=== PATIENT | female | born 1960 | race Caucasian/White ===

== ENCOUNTER 2023-05-25 13:32 | Outpatient (OUT) | payer MEDICARE, OTHER, SELFPAY ==
--- NOTE | 2023-05-25 14:05 | XR_ITS ---
The [address] [address] Patient Name: DELMIS MTZ MRN: [id number] date: 1960 Sex: F Assigned Patient Location: [facility] Current Patient Location: [facility] Accession/Order Number: [id number] Exam Date: 05/25/2023 14:00 Report Date: 05/25/2023 14:13 At the request of: RADHA IVERSON Procedure: XR ankle RT min 3V EXAM: XR ankle RT min 3V HISTORY: Ankle Pain M25.579 COMPARISON: None. TECHNIQUE: 3 views of the right ankle were obtained. FINDINGS: There is a small osteophyte or bony fragments seen at the tip of the lateral malleolus which appears chronic in nature. There is no evidence of an acute fracture or dislocation. The mortise is intact. No osteochondral injury is identified. There is mild narrowing of the subtalar joints and the joints in the mid foot. An osteophyte arises from the plantar aspect of the calcaneus. Diffuse osteopenia is noted. Diffuse soft tissue swelling about the ankle is noted. XR/XR ankle RT min 3V IMPRESSION: Some degenerative changes are present. There is no evidence of an acute fracture or dislocation. An osteophyte arises from the plantar aspect of the calcaneus. Direct comparison with a previous study may be helpful in determining the chronicity of these findings. Electronically authenticated by: NIESHA BULLOCK Date: 05/25/2023 14:13
== END 2023-05-25 13:33 | disposition home or self-care (01) ==
LOC: RAD 13:36
PROVIDERS: PCP Family Medicine; Visit Provider Family Medicine
DX: M25.571 Pain in right ankle and joints of right foot (principal); M19.071 Primary osteoarthritis, right ankle and foot; M25.774 Osteophyte, right foot
CPT/HCPCS: 73610

== ENCOUNTER 2023-08-11 12:23 | Outpatient (REF) | payer MEDICARE, OTHER, SELFPAY ==
[2023-08-11 12:52] LABS: Bilirubin Urine NEGATIVE (NEGATIVE); Blood Urine NEGATIVE (NEGATIVE); Clarity Urine CLEAR (CLEAR); Color Urine LT. YELLOW (YELLOW); Glucose Urine UA NEGATIVE (NEGATIVE); Ketones Urine NEGATIVE (NEGATIVE); Leukocyte Esterase Urine NEGATIVE (NEGATIVE); Nitrite Urine NEGATIVE (NEGATIVE); Protein Urine NEGATIVE (NEG/TRACE); Urobilinogen Urine 0.2 EU/dL (0.2-1.0)
[2023-08-11 13:16] LABS: Bacteria Urine TRACE #/HPF (NONE SEEN); Cast Seen? NONE SEEN #/LPF (NONE SEEN); Crystals Seen? None Seen #/HPF (None Seen); Mucus Urine NONE SEEN (NONE SEEN); RBC Urine NONE SEEN #/HPF (0-2); Squamous Epithelial Cell Urine RARE #/LPF (NONE/RARE); WBC Urine NONE SEEN #/HPF (NONE SEEN)
== END 2023-08-11 12:24 | disposition home or self-care (01) ==
LOC: LAB 12:23
PROVIDERS: PCP Family Medicine; Visit Provider Family Medicine
DX: N39.0 Urinary tract infection, site not specified (principal)
CPT/HCPCS: 81001; 87086

== ENCOUNTER 2024-04-11 13:59 | Outpatient (OUT) | payer MEDICARE, OTHER, SELFPAY ==
[2024-04-11 14:51] LABS: Basophils Absolute Auto 0.1 10^3/uL (0.0-0.1); Basophils Percent Auto 1.2 % (0.2-2.0); Eosinophils Absolute Auto 0.1 10^3/uL (0.0-0.7); Eosinophils Percent Auto 1.2 % (0.9-7.0); Hematocrit 40.3 % (36.0-48.0); Hemoglobin 12.9 g/dL (12.0-16.0); Immature Granulocytes Abs Auto 0.01 10^3/uL (0.00-0.03); Immature Granulocytes Pct Auto 0.2 % (0.0-0.5); Lymphocytes Absolute Auto 1.3 10^3/uL (1.2-3.8); Lymphocytes Percent Auto 23.8 % (20.5-60.0); Mean Corpuscular Hemoglobin 28.7 pg (26.7-34.0); Mean Corpuscular Volume 89.8 fL (81.0-99.0); Mean Platelet Volume 11.1 fL (9.5-13.5); Monocytes Absolute Auto 0.5 10^3/uL (0.3-0.8); Neutrophils Absolute Auto 3.7 10^3/uL (1.4-6.5); Neutrophils Percent Auto 65.6 % (43.0-75.0); Platelet Count 217 10^3/uL (150-450); Red Blood Count 4.49 10^6/uL (4.20-5.40); Red Cell Distribution Width 12.9 % (11.0-15.0); White Blood Count 5.6 10^3/uL (4.0-11.0)
[2024-04-11 15:19] LABS: Estimated Average Glucose 126 mg/dL
[2024-04-11 15:32] LABS: Alanine Aminotransferase 17 U/L (14-59); Albumin Globulin Ratio 0.9; Albumin Level 3.6 g/dL (3.4-5.0); Alkaline Phosphatase 95 U/L (46-116); Anion Gap 10.9; Aspartate Amino Transferase 12 U/L (15-37); BUN Creatinine Ratio 23.5; Bilirubin Total 0.5 mg/dL (0.2-1.0); Calcium 8.7 mg/dL (8.5-10.1); Chloride 101 mmol/L (98-107); Chol HDL Ratio 2.8; Cholesterol 147 mg/dL (<=200); Estimated GFR (African America >60 (>=60); Estimated GFR (Non-African Ame >60 (>=60); Free T3 2.46 pg/mL (2.18-3.98); Glucose 96 mg/dL (74-106); HDL Cholesterol 53 mg/dL (40-60); LDL Cholesterol Calculated 78.6 mg/dL; Potassium 3.9 mmol/L (3.5-5.1); Sodium 138 mmol/L (136-145); Total Protein 7.6 g/dL (6.4-8.2); Triglycerides 77 mg/dL (<=150); VLDL CHOLESTEROL 15.4 mg/dL
[2024-04-12 11:11] LABS: Insulin 16.3 uIU/mL (2.6-24.9)
== END 2024-04-11 14:00 | disposition home or self-care (01) ==
PROVIDERS: PCP Family Medicine; Visit Provider Family Medicine
DX: K21.9 Gastro-esophageal reflux disease without esophagitis (principal); I10 Essential (primary) hypertension; J43.9 Emphysema, unspecified; R06.09 Other forms of dyspnea; E78.5 Hyperlipidemia, unspecified; R73.09 Other abnormal glucose; D64.9 Anemia, unspecified; E55.9 Vitamin D deficiency, unspecified
CPT/HCPCS: 36415; 80053; 80061; 82306; 83036; 83525; 83540; 84436; 84443; 84481; 85025

== ENCOUNTER 2025-04-01 08:55 | Outpatient (OUT) | payer MEDICARE, OTHER, SELFPAY ==
--- OUTSIDE RECORDS SUMMARY | 2025-04-01 09:00 | XMS_ITS | CCD ---
Author Organization [facility] Care Team Providers Care Poly Area Supervisor Name Role Phone DR RADHA LENTZ Admitting Unavailable KISHOR, DR GARCIA Attending Unavailable KISHOR, DR GARCIA Referring Unavailable KISHOR, DR GARCIA Primary Care Unavailable KISHOR, DR GARCIA Consulting Unavailable KISHOR, DR GARCIA Admitting Unavailable KISHOR, DR GARCIA Attending Unavailable KISHOR, DR GARCIA Primary Care Unavailable KISHOR, DR GARCIA Consulting Unavailable Radha Lentz MD Primary Care Provider [phone] Berta Lovelace MD Unavailable Berta Rivero OD Unavailable Radha Lentz MD Primary Care Provider [phone] KURTIS VALDEZ Attending Unavailable LEFTY ECHOLS Attending Unavailable KURTIS VALDEZ Attending Unavailable Allergies Allergy Classification Reported Allergen(s) Allergy Type Date of Onset Reaction(s) Facility (1 source) Sulfamethoxazole / Trimethoprim Drug Allergy 12-04-19 17 [facility] Repository (3 sources) Penicillins Propensity to adverse reactions 02-28-20 25 [facility] Healthcare Medications Current Medications Medication Drug Class(es) Dates Sig (Normalized) Sig (Original) albuterol 0.83 mg/ml inhalation solution (5 sources) beta2-Adrenergic Agonist albuterol (2.5 MG/3ML) 0.083% nebulizer solution Take by nebulization every 6 (six) hours if needed for wheezing. Active amLODIPine 5 mg oral tablet (5 sources) Dihydropyridine Calcium Channel [place] Start: 05-24-2023 take 1 tablet by mouth once daily amLODIPine (Norvasc) 5 MG tablet TAKE 1 TABLET BY MOUTH EVERY DAY FOR 30 DAYS 05/24/2023 Active carvedilol 25 mg oral tablet (10 sources) alpha-Adrenergic Lorena, beta-Adrenergic [place] Start: 04-11-2024 take 1 tablet by mouth twice daily at mealtime carvedilol (Coreg) 25 MG tablet TAKE 1 TABLET BY MOUTH TWICE A DAY WITH FOOD FOR 90 DAYS 04/11/2024 Active Start: 05-31-2023 End: 03-18-2025 take 1 tablet by mouth twice daily at mealtime carvedilol (Coreg) 12.5 MG tablet TAKE 1 TABLET BY MOUTH TWICE A DAY WITH FOOD FOR 90 DAYS 05/31/2023 03/18/2025 Discontinued cholecalciferol 0.125 mg oral capsule (5 sources) Vitamin D Start: 04-13-2023 take 1 capsule by mouth once daily [facility] D3 125 MCG (5000 UT) capsule TAKE 1 CAPSULE BY MOUTH ONCE A DAY DIRECTED 04/13/2023 Active esomeprazole 20 mg delayed release oral capsule (5 sources) Proton Pump Inhibitor take 1 capsule by mouth before mealtime esomeprazole (NexIUM) [address] capsule Take 20 mg by mouth in the morning. Take before meals. Do not open capsule.. Active furosemide 40 mg oral tablet (5 sources) Loop Diuretic Start: 04-13-2023 take 1 tablet by mouth once daily furosemide (Lasix) 40 MG tablet TAKE 1 TABLET BY MOUTH EVERY DAY FOR 90 DAYS 04/13/2023 Active hyoscyamine sulfate 0.125 mg sublingual tablet (5 sources) Start: 02-20-2024 hyoscyamine (Levsin) 0.125 MG SL tablet DISSOLVE 1 TABLET UNDER TONGUE BEFORE MEALS AND AT BEDTIME NEEDED FOR ABDOMINAL PAIN 02/20/2024 Active ibuprofen 600 mg oral tablet (5 sources) Nonsteroidal Anti-inflammatory Drug ibuprofen 600 MG tablet every 8 (eight) hours. Active ketorolac tromethamine 5 mg/ml ophthalmic solution (1 source) Nonsteroidal Anti-inflammatory Drug, Cyclooxygenase Inhibitor Start: 07-08-2024 End: 08-07-2024 take 1 drop(s) into the eye(s) in the morning ketorolac (Acular) 0.5 % ophthalmic solution Indications: Age-related nuclear cataract of both eyes ADMINISTER 1 DROP INTO AFFECTED EYE(S) IN THE MORNING AND 1 DROP BEFORE BEDTIME. 5 mL 1 07/08/2024 08/07/2024 Active losartan potassium 100 mg oral tablet (5 sources) Angiotensin 2 Receptor Lorena losartan (Cozaar) 100 MG tablet 1 (one) time each day at the same time. Active potassium chloride 10 meq extended release oral tablet (5 sources) Start: 05-31-2023 take 1 tablet by mouth in the morning potassium chloride CR (Klor-Con) 10 MEQ ER tablet Take 10 mEq by mouth in the morning and 10 mEq before bedtime. 05/31/2023 Active simvastatin 20 mg oral tablet (5 sources) HMG-CoA Reductase Inhibitor Start: 04-13-2023 take 1 tablet by mouth in the morning simvastatin (Zocor) 20 MG tablet Take 20 mg by mouth in the morning. 04/13/2023 Active Completed/Discontinued Medications Medication Drug Class(es) Dates Sig (Normalized) Sig (Original) ondansetron 4 mg disintegrating oral tablet (5 sources) Serotonin-3 Receptor Antagonist Start: 02-20-2024 End: 03-18-2025 ondansetron ODT (Zofran-ODT) 4 MG disintegrating tablet DISSOLVE 1 TABLET ON THE TONGUE EVERY 6 HOURS NEEDED FOR NAUSEA FOR 3 DAYS 02/20/2024 03/18/2025 Discontinued Problems Problem Classification Problem Date Documented Date Episodic/Chronic Cataract (6 sources) Bilateral age-related nuclear cataracts; Translations: [Age-related nuclear cataract, bilateral] Onset: 05-21-2024 07-08-2024 Chronic Menopausal disorders (3 sources) Postmenopausal bleeding; Translations: [Postmenopausal bleeding] 02-27-2025 Chronic Nutritional deficiencies (1 source) Vitamin D deficiency, unspecified; Translations: [VITAMIN D DEFICIENCY UNSPECIFIED] Onset: 06-19-2022 Chronic Other screening for suspected conditions (not mental disorders or infectious disease) (1 source) Endometrium thickened; Translations: [Abnormal findings on diagnostic imaging of other specified body structures] 03-18-2025 Chronic Retinal detachments; defects; vascular occlusion; and retinopathy (5 sources) Epiretinal membrane of left eye; Translations: [Puckering of macula, left eye] Onset: 05-21-2024 05-21-2024 Chronic Results Test Name Value Interpretation Reference Range Facility US PELVIC COMPLETE W/ TVon 0 03-18-2025 US PELVIC COMPLETE W/ TV EXAM: US PELVIC COMPLETE W/ TV HISTORY: Postmenopausal bleeding x8 days occurring 2 weeks ago. G0. COMPARISON: None available. TECHNIQUE: Two-dimensional transabdominal grayscale and color Doppler ultrasound imaging of the pelvis was performed. Transvaginal was performed. FINDINGS: UTERUS 6.5 x 2.4 x 3.6 cm The uterus is anteverted in position and demonstrates a normal, homogeneous echotexture. Multiple nabothian cysts are visualized within the cervix. ENDOMETRIUM 0.6 cm The postmenopausal endometrium is thickened and demonstrates a heterogeneous echotexture. There is no definite internal mass lesion. RIGHT OVARY Not visualized LEFT OVARY Not visualized No fluid is present within the cul-de-sac. IMPRESSION: 1. Mildly thickened and heterogeneous postmenopausal endometrium without sonographic evidence of definite internal mass lesion. Hysteroscopy with tissue sampling is recommended for further evaluation. 2. Nonvisualization of the bilateral ovaries. Interpreted by: Electronically signed by VALE CHAKRABORTY II, MD, PHD at 19-Mar-2025 08:43:41 AM [facility] Normal Not Available Comment on above: Order Comment: US PE LVIS-TRANSVAG IF INDICATED No LMP recorded. INSULINon 06-16-2022 Insulin 24.6 uIU/mL Normal 2.6-24.9 [facility] Comment on above: Performed By: #### I NSULIN #### [facility] [address] [address] [address] Ghassan Mena VIT D 25-OH LABCORPon 2021 Vitamin D, 25-Hydroxy 57.2 ng/mL Normal 30.0-100.0 [facility] Comment on above: Result Comment: Jany min D deficiency has been defined by the Oxford of Medicine and an Endocrine Society practice guideline as a level of serum 25-OH vitamin D less than 20 ng/mL (1,2). The Endocrine Society went on to further define vitamin D insufficiency as a level between 21 and 29 ng/mL (2). 1. IOM (Oxford of Medicine). 2010. Dietary reference intakes for calcium and D. [place]: The National Academies Press. 2. Nadia MF, Fermin [place], Mark ABAD, et al. Evaluation, treatment, and prevention of vitamin D deficiency: an Endocrine Society clinical practice guideline. JCEM. 2010; 96(7):1911-30. Performed By: #### I DOTTIE #### [facility] [address] [address] Katherin Dina CBC AUTO DIFFon 06-15-2022 BASO # 0.0 103/ul Normal 0.0-0.1 [facility] Comment on above: Performed By: #### I DOTTIE #### [facility] [address] [place], [place] [id number] Katheriniliana Arroyo Basophils/100 WBC (Bld) 0.7 % Normal 0.2-2.0 [facility] Comment on above: Performed By: #### I DOTTIE #### [facility] [address] [place] [address] Katherin Dina EO # 0.1 103/ul Normal 0.0-0.7 [facility] Comment on above: Performed By: #### I DOTTIE #### [facility] [address] [place] [address] Katherin Dina Eosinophils/100 WBC (Bld) 1.1 % Normal 0.9-7.0 [facility] Comment on above: Performed By: #### I DOTTIE #### [facility] [address] [place] [address] Katherin Arroyo Erythrocyte distribution width (RBC) [Ratio] 12.8 % Normal 11.0-15.0 [facility] Comment on above: Performed By: #### I DOTTIE #### [facility] [address] [place] [address] Katherin Dina Hematocrit (Bld) [Volume fraction] 40.9 % Normal 36.0-48.0 [facility] Comment on above: Performed By: #### I DOTTIE #### [facility] [address] [place] [address] Katherin Dina Hemoglobin (Bld) [Mass/Vol] 13.3 g/dL Normal 12.0-16.0 [facility] Comment on above: Performed By: #### I DOTTIE #### [facility] [address] [place] [address] Katherin Dina IG # 0.01 10e3/ul Normal 0.00-0.03 [facility] Comment on above: Performed By: #### I DOTTIE #### [facility] [address] [place] [address] Katherin Dina IG % 0.2 % Normal 0.0-0.5 [facility] Comment on above: Performed By: #### I DOTTIE #### [facility] [address] [place] [address] Katherin Arroyo LYMPH # 1.0 103/ul Critically low 1.2-3.8 [facility] Comment on above: Performed By: #### I DOTTIE #### [facility] [address] [place] [address] Katherin Arroyo Lymphocytes/100 WBC (Bld) 18.7 % Critically low 20.5-60.0 [facility] Comment on above: Performed By: #### I DOTTIE #### [facility] [address] [place] [address] Katherin Arroyo MANUAL DIFF REQ NO Normal [facility] Comment on above: Performed By: #### I DOTTIE #### [facility] [address] [place] [address] Katheriniliana Arroyo MCH (RBC) [Entitic mass] 28.8 pg Normal 26.7-34.0 [facility] Comment on above: Performed By: #### I DOTTIE #### [facility] [address] [place] [address] Katherin Arroyo MCHC (RBC) [Mass/Vol] 32.5 g/dL Normal 29.9-35.2 [facility] Comment on above: Performed By: #### I DOTTIE #### [facility] [address] [place] [address] Katherin Arroyo MCV (RBC) [Entitic vol] 88.5 fL Normal 81.0-99.0 [facility] Comment on above: Performed By: #### I DOTTIE #### [facility] [address] [place] [address] Katherin Dina MONO # 0.4 103/ul Normal 0.3-0.8 [facility] Comment on above: Performed By: #### I DOTTIE #### [facility] [address] [place] [address] Katherin Arroyo Monocytes/100 WBC (Bld) 7.8 % Normal 1.7-12.0 [facility] Comment on above: Performed By: #### I DOTTIE #### [facility] [address] [place] [address] Katherin Arroyo NEUT # 3.9 103/ul Normal 1.4-6.5 [facility] Comment on above: Performed By: #### I DOTTIE #### [facility] [address] [place], [place] [id number] Katherin Arroyo Neutrophils/100 WBC (Bld) 71.5 % Normal 43.0-75.0 [facility] Comment on above: Performed By: #### I DOTTIE #### [facility] [address] [place] [address] Katherin Arroyo Platelet mean volume (Bld) [Entitic vol] 11.0 fL Normal 9.5-13.5 [facility] Comment on above: Performed By: #### I DOTTIE #### [facility] [address] [place] [address] Katherin Batistaen PLT 201 103/ul Normal 150-450 [facility] Comment on above: Performed By: #### I DOTTIE #### [facility] [address] [place] [address] Katheriniliana Batistaen RBC 4.62 106/ul Normal 4.20-5.40 [facility] Comment on above: Performed By: #### I DOTTIE #### [facility] [address] [place] [address] Katherin Batistaen WBC 5.5 103/ul Normal 4.0-11.0 [facility] Comment on above: Performed By: #### I DOTTIE #### [facility] [address] [place] [address] Katherin Arroyo FREE THYROXINE INDEX T7on FTI 2.95 Normal 1.30-4.50 [facility] Comment on above: Performed By: #### L IPID, T7, TSH, CMP #### [facility] [address] [place] [address] Dr. Ghassan Mena T3U 31.0 % Normal 30.0-39.0 [facility] Comment on above: Performed By: #### L IPID, T7, TSH, CMP #### [facility] [address] [address] [address] Ghassan Mena T4 [Mass/Vol] 9.50 ug/dL Normal 4.80-13.90 [facility] Comment on above: Performed By: #### L IPID, T7, TSH, CMP #### [facility] [address] [address] [address] Ghassan Mena GLYCOHEMOGLOBIN A1Con 2021 ADA RECOMMENDATION SEE BELOW Normal [facility] Comment on above: Result Comment: ADA RECOMMENDED LIMIT 4.0 - 6.0 ADA THERAPEUTIC TARGET < 7.0 ACTION SUGGESTED > 7.0 Performed By: #### A 1C #### [facility] [address] [address] [address] Ghassan Mena Glucose [Mass/Vol] 131 mg/dL Normal [facility] Comment on above: Performed By: #### A 1C #### [facility] [address] [address] [address] Ghassan Mena HbA1c (Bld) [Mass fraction] 6.2 % Normal 4.5-6.2 [facility] Comment on above: Performed By: #### A 1C #### [facility] [address] [address] [address] Ghassan Mena IRONon 06-15-2022 Iron [Mass/Vol] 54.0 ug/dL Normal 50.0-170.0 [facility] Comment on above: Performed By: #### I DOTTIE #### [facility] [address] [address] [address] Ghassan Mena LIPID PROFILEon 06-15-2022 CHOL-HDL RATIO NORM SEE BELOW Normal [facility] Comment on above: Result Comment: 3.3 - 4.4 LOW RISK 4.4 - 7.1 AVERAGE RISK 7.1 - 11.0 MODERATE RISK >11.0 HIGH RISK Performed By: #### L IPID, T7, TSH, CMP #### [facility] [address] [address] [address] Ghassan Mena Cholesterol [Mass/Vol] 143 mg/dL Normal <=200 [facility] Comment on above: Performed By: #### L IPID, T7, TSH, CMP #### [facility] [address] [address] [address] Ghassan Mena Cholesterol in HDL [Mass/Vol] 50 mg/dL Normal 40-60 [facility] Comment on above: Performed By: #### L IPID, T7, TSH, CMP #### [facility] [address] [address] [address] Ghassan Mena Cholesterol in LDL [Mass/Vol] 76.8 mg/dL Normal [facility] Comment on above: Performed By: #### L IPID, T7, TSH, CMP #### [facility] [address] [address] [address] Ghassan Mena Cholesterol.total/Ch olesterol in HDL [Mass ratio] 2.9 {ratio} Normal [facility] Comment on above: Performed By: #### L IPID, T7, TSH, CMP #### [facility] [address] [address] [address] Ghassan Mena HDL NORMAL > or = 60 mg/dl - LO W CARDIOVASCULAR RISK <40 mg/dl - HIGH CARDIOVASCULAR RISK Normal [facility] Comment on above: Performed By: #### L IPID, T7, TSH, CMP #### [facility] [address] [address] [address] Ghassan Mena LDL CALC NORMAL SEE BELOW Normal [facility] Comment on above: Result Comment: <100 mg/dl OPTIMAL 100 - 129 mg/dl NEAR OR ABOVE OPTIMAL 130 - 159 mg/dl BORDERLINE HIGH 160 - 189 mg/dl HIGH >190 mg/dl VERY HIGH Performed By: #### L IPID, T7, TSH, CMP #### [facility] [address] [address] [address] Ghassan Mena Triglyceride [Mass/Vol] 81 mg/dL Normal <=150 [facility] Comment on above: Performed By: #### L IPID, T7, TSH, CMP #### [facility] [address] [address] [address] Ghassan Mena VLDL CALC 16.2 mg/dL Normal [facility] Comment on above: Performed By: #### L IPID, T7, TSH, CMP #### [facility] [address] [address] [address] Ghassan Mena PROF 14(COMP METB)on 022 Albumin [Mass/Vol] 3.5 g/dL Normal 3.4-5.0 [facility] Comment on above: Performed By: #### L IPID, T7, TSH, CMP #### [facility] [address] [place] [address] Dr. Ghassan Mena Albumin/Globulin [Mass ratio] 0.9 {ratio} Normal [facility] Comment on above: Performed By: #### L IPID, T7, TSH, CMP #### [facility] [address] [place] [address] Dr. Ghassan Mena ALP [Catalytic activity/Vol] 83 U/L Normal 46-116 [facility] Comment on above: Performed By: #### L IPID, T7, TSH, CMP #### [facility] [address] [place] [address] Dr. Ghassan Mena ALT [Catalytic activity/Vol] 14 U/L Normal 14-59 [facility] Comment on above: Performed By: #### L IPID, T7, TSH, CMP #### [facility] [address] [place] [address] Dr. Ghassan Mena Anion gap [Moles/Vol] 11.3 mmol/L Normal [facility] Comment on above: Performed By: #### L IPID, T7, TSH, CMP #### [facility] [address] [place] [address] Dr. Ghassan Mena AST [Catalytic activity/Vol] 11 U/L Critically low 15-37 [facility] Comment on above: Performed By: #### L IPID, T7, TSH, CMP #### [facility] [address] [place] [address] Dr. Ghassan Mena Bilirubin [Mass/Vol] 0.5 mg/dL Normal 0.2-1.0 [facility] Comment on above: Performed By: #### L IPID, T7, TSH, CMP #### [facility] [address] [address] [address] Ghassan Mena Calcium [Mass/Vol] 8.9 mg/dL Normal 8.5-10.1 [facility] Comment on above: Performed By: #### L IPID, T7, TSH, CMP #### [facility] [address] [place] [address] Dr. Ghassan Mena Chloride [Moles/Vol] 105 mmol/L Normal 98-107 [facility] Comment on above: Performed By: #### L IPID, T7, TSH, CMP #### [facility] [address] [place] [address] Dr. Ghassan Mena CO2 [Moles/Vol] 27.8 mmol/L Normal 21.0-32.0 [facility] Comment on above: Performed By: #### L IPID, T7, TSH, CMP #### [facility] [address] [place] [address] Dr. Ghassan Mena Creatinine [Mass/Vol] 0.70 mg/dL Normal 0.55-1.02 [facility] Comment on above: Performed By: #### L IPID, T7, TSH, CMP #### [facility] [address] [place] [address] Dr. Ghassan Mena EGFR-AF J[place]ICAN >60 Normal >=60 [facility] Comment on above: Performed By: #### L IPID, T7, TSH, CMP #### [facility] [address] [place] [address] Dr. Ghassan Mena EGFR-NON AF J[place] >60 Normal >=60 [facility] Comment on above: Performed By: #### L IPID, T7, TSH, CMP #### [facility] [address] [place] [address] Dr. Ghassan Mena Globulin (S) [Mass/Vol] 3.8 g/dL Normal [facility] Comment on above: Performed By: #### L IPID, T7, TSH, CMP #### [facility] [address] [place] [address] Dr. Ghassan Mena Glucose [Mass/Vol] 109 mg/dL Critically high 74-106 T [facility] Comment on above: Performed By: #### L IPID, T7, TSH, CMP #### [facility] [address] [place] [address] Dr. Ghassan Mena Potassium [Moles/Vol] 4.1 mmol/L Normal 3.5-5.1 [facility] Comment on above: Performed By: #### L IPID, T7, TSH, CMP #### [facility] [address] [place] [address] Dr. Ghassan Mena Protein [Mass/Vol] 7.3 g/dL Normal 6.4-8.2 [facility] Comment on above: Performed By: #### L IPID, T7, TSH, CMP #### [facility] [address] [place] [address] Dr. Ghassan Mena Sodium [Moles/Vol] 140 mmol/L Normal 136-145 [facility] Comment on above: Performed By: #### L IPID, T7, TSH, CMP #### [facility] [address] [place] [address] Dr. Ghassan Mena Urea nitrogen [Mass/Vol] 16.0 mg/dL Normal 7.0-18.0 [facility] Comment on above: Performed By: #### L IPID, T7, TSH, CMP #### [facility] [address] [place] [address] Dr. Ghassan Mena Urea nitrogen/Creatinine [Mass ratio] 22.9 mg/mg Normal [facility] Comment on above: Performed By: #### L IPID, T7, TSH, CMP #### [facility] [address] [place] [address] Dr. Ghassan Mena TSHon 06-15-2022 TSH 2.630 uIU/mL Normal 0.358-3.740 [facility] Comment on above: Performed By: #### L IPID, T7, TSH, CMP #### [facility] [address] [place] [address] Dr. Ghassan Mena INSULINon 07-08-2021 Insulin 6.9 uIU/mL Normal 2.6-24.9 [facility] Comment on above: Performed By: #### I NSULIN #### [facility] [address] [place], [place] [id number] Katherin Dina CBC AUTO DIFFon 07-07-2021 BASO # 0.1 103/ul Normal 0.0-0.1 [facility] Comment on above: Performed By: #### I DOTTIE #### [facility] [address] [place] [address] Katherin Dina Basophils/100 WBC (Bld) 1.0 % Normal 0.2-2.0 [facility] Comment on above: Performed By: #### I DOTTIE #### [facility] [address] [place] [address] Katherin Dina EO # 0.1 103/ul Normal 0.0-0.7 [facility] Comment on above: Performed By: #### I DOTTIE #### [facility] [address] [place] [address] Katherin Dina Eosinophils/100 WBC (Bld) 1.2 % Normal 0.9-7.0 [facility] Comment on above: Performed By: #### I DOTTIE #### [facility] [address] [place] [address] Katheriniliana Arroyo Erythrocyte distribution width (RBC) [Ratio] 13.1 % Normal 11.0-15.0 [facility] Comment on above: Performed By: #### I DOTTIE #### [facility] [address] [place] [address] Katherin Dina Hematocrit (Bld) [Volume fraction] 40.6 % Normal 36.0-48.0 [facility] Comment on above: Performed By: #### I DOTTIE #### [facility] [address] [place], [place] [id number] Katherin Dina Hemoglobin (Bld) [Mass/Vol] 13.1 g/dL Normal 12.0-16.0 [facility] Comment on above: Performed By: #### I DOTTIE #### [facility] [address] [place] [address] Katherin Dina IG # 0.01 10e3/ul Normal 0.00-0.03 [facility] Comment on above: Performed By: #### I DOTTEI #### [facility] [address] [place] [address] Katherin Dina IG % 0.2 % Normal 0.0-0.5 [facility] Comment on above: Performed By: #### I DOTTIE #### [facility] [address] [place] [address] Katherin Dina LYMPH # 1.2 103/ul Normal 1.2-3.8 [facility] Comment on above: Performed By: #### I DOTTIE #### [facility] [address] [place] [address] Katheriniliana Arroyo Lymphocytes/100 WBC (Bld) 22.1 % Normal 20.5-60.0 [facility] Comment on above: Performed By: #### I DOTTIE #### [facility] [address] [place] [address] Katherin Dina MANUAL DIFF REQ NO Normal [facility] Comment on above: Performed By: #### I DOTTIE #### [facility] [address] [place] [address] Katherin Dina MCH (RBC) [Entitic mass] 29.1 pg Normal 26.7-34.0 [facility] Comment on above: Performed By: #### I DOTTIE #### [facility] [address] [place] [address] Katheriniliana Arroyo MCHC (RBC) [Mass/Vol] 32.3 g/dL Normal 29.9-35.2 [facility] Comment on above: Performed By: #### I DOTTIE #### [facility] [address] [place] [address] Katherin Dina MCV (RBC) [Entitic vol] 90.2 fL Normal 81.0-99.0 [facility] Comment on above: Performed By: #### I DOTTIE #### [facility] [address] [place] [address] Katherin Dina MONO # 0.5 103/ul Normal 0.3-0.8 [facility] Comment on above: Performed By: #### I DOTTIE #### [facility] [address] [place] [address] Katherin Dina Monocytes/100 WBC (Bld) 9.0 % Normal 1.7-12.0 [facility] Comment on above: Performed By: #### I DOTTIE #### [facility] [address] [place], [place] [id number] Katheriniliana Batistaen NEUT # 3.5 103/ul Normal 1.4-6.5 [facility] Comment on above: Performed By: #### I DOTTIE #### [facility] [address] [place], [place] [id number] Katherin Dina Neutrophils/100 WBC (Bld) 66.5 % Normal 43.0-75.0 [facility] Comment on above: Performed By: #### I DOTTIE #### [facility] [address] [place], [place] [id number] Katheriniliana Arroyo Platelet mean volume (Bld) [Entitic vol] 11.0 fL Normal 9.5-13.5 [facility] Comment on above: Performed By: #### I DOTTIE #### [facility] [address] [place], [place] [id number] Katherin Dnia PLT 195 103/ul Normal 150-450 [facility] Comment on above: Performed By: #### I DOTTIE #### [facility] [address] [place], [place] [id number] Katherin Dina RBC 4.50 106/ul Normal 4.20-5.40 [facility] Comment on above: Performed By: #### I DOTTIE #### [facility] [address] [place], [place] [id number] Katherin Dina WBC 5.2 103/ul Normal 4.0-11.0 [facility] Comment on above: Performed By: #### I DOTTIE #### [facility] [address] [place], [place] [id number] Katherin Dina FREE THYROXINE INDEX T7on FTI 3.77 Normal [facility] Comment on above: Performed By: #### I DOTTIE #### [facility] [address] [place], [place] [id number] Katherin Dina T3U 34.0 % Normal 23.5-40.5 [facility] Comment on above: Performed By: #### I DOTTIE #### [facility] [address] [place] [address] Katherin Dina T4 [Mass/Vol] 11.10 ug/dL Critically high 5.53-11.00 [facility] Comment on above: Performed By: #### I DOTTIE #### [facility] [address] [place] [address] Katherin Arroyo GLYCOHEMOGLOBIN A1Con 2020 ADA RECOMMENDATION ADA THERAPEUTIC TARGET 6.0 - 7.0 ACTION SUGGESTED > 7.0 Normal [facility] Comment on above: Performed By: #### A 1C #### [facility] [address] [place] [address] Katherin Arroyo Glucose [Mass/Vol] 123 mg/dL Normal [facility] Comment on above: Performed By: #### A 1C #### [facility] [address] [place] [address] Katherin Arroyo HbA1c (Bld) [Mass fraction] 5.9 % Normal <=6.0 [facility] Comment on above: Performed By: #### A 1C #### [facility] [address] [place] [address] Katherin Arroyo IRONon 07-07-2021 Iron [Mass/Vol] 64.0 ug/dL Normal 37.0-170.0 [facility] Comment on above: Performed By: #### I DOTTIE #### [facility] [address] [place] [address] Katherin Arroyo LIPID PROFILEon 07-07-2021 CHOL-HDL RATIO NORM SEE BELOW Normal [facility] Comment on above: Result Comment: 3.3 - 4.4 LOW RISK 4.4 - 7.1 AVERAGE RISK 7.1 - 11.0 MODERATE RISK >11.0 HIGH RISK Performed By: #### I DOTTIE #### [facility] [address] [place] [address] Katherin Arroyo Cholesterol [Mass/Vol] 137 mg/dL Normal <=200 [facility] Comment on above: Performed By: #### I DOTTIE #### [facility] [address] [place], [place] [address] Katherin Dina Cholesterol in HDL [Mass/Vol] 52 mg/dL Normal [facility] Comment on above: Performed By: #### I DOTTIE #### [facility] [address] [place], [place] [address] Katherin Dina Cholesterol in LDL [Mass/Vol] 72.2 mg/dL Normal [facility] Comment on above: Performed By: #### I DOTTIE #### [facility] [address] [place], [place] [address] Katherin Dina Cholesterol.total/Ch olesterol in HDL [Mass ratio] 2.6 {ratio} Normal [facility] Comment on above: Performed By: #### I DOTTIE #### [facility] [address] [place] [id number] Katherin Dina HDL NORMAL > or = 60 mg/dl - LO W CARDIOVASCULAR RISK <40 mg/dl - HIGH CARDIOVASCULAR RISK Normal [facility] Comment on above: Performed By: #### I DOTTIE #### [facility] [address] [place], [place] [address] Katherin Dina LDL CALC NORMAL SEE BELOW Normal [facility] Comment on above: Result Comment: <100 mg/dl OPTIMAL 100 - 129 mg/dl NEAR OR ABOVE OPTIMAL 130 - 159 mg/dl BORDERLINE HIGH 160 - 189 mg/dl HIGH >190 mg/dl VERY HIGH Performed By: #### I DOTTIE #### [facility] [address] [place] [id number] Katherin Dina Triglyceride [Mass/Vol] 64 mg/dL Normal <=150 [facility] Comment on above: Performed By: #### I DOTTIE #### [facility] [address] [place] [id number] Katherin Dina VLDL CALC 12.8 mg/dL Normal [facility] Comment on above: Performed By: #### I DOTTIE #### [facility] [address] [place], [place] [address] Katherin Dina PROF 14(COMP METB)on 021 Albumin [Mass/Vol] 3.7 g/dL Normal 3.5-5.0 [facility] Comment on above: Performed By: #### I DOTTIE #### [facility] [address] [place] [id number] Katherin Dina Albumin/Globulin [Mass ratio] 0.9 {ratio} Normal [facility] Comment on above: Performed By: #### I DOTTIE #### [facility] [address] [place] [id number] Katherin Dina ALP [Catalytic activity/Vol] 85 U/L Normal 38-126 [facility] Comment on above: Performed By: #### I DOTTIE #### [facility] [address] [place] [address] Katherin Dina ALT [Catalytic activity/Vol] 19 U/L Normal 9-52 [facility] Comment on above: Performed By: #### I DOTTIE #### [facility] [address] [place] [address] Katherin Dina Anion gap [Moles/Vol] 10.6 mmol/L Normal [facility] Comment on above: Performed By: #### I DOTTIE #### [facility] [address] [place] [address] Katherin Dina AST [Catalytic activity/Vol] 24 U/L Normal 14-36 [facility] Comment on above: Performed By: #### I DOTTIE #### [facility] [address] [place] [address] Katherin Dina Bilirubin [Mass/Vol] 0.5 mg/dL Normal 0.2-1.3 [facility] Comment on above: Performed By: #### I DOTTIE #### [facility] [address] [place] [address] Katherin Dina Calcium [Mass/Vol] 9.2 mg/dL Normal 8.4-10.2 [facility] Comment on above: Performed By: #### I DOTTIE #### [facility] [address] [place], [place] [id number] Katherin Dina Chloride [Moles/Vol] 102 mmol/L Normal 98-107 [facility] Comment on above: Performed By: #### I DOTTIE #### [facility] [address] [place] [address] Katherin Dina CO2 [Moles/Vol] 31.5 mmol/L Critically high 22.0-30.0 [facility] Comment on above: Performed By: #### I DOTTIE #### [facility] [address] [place] [address] Katherin Dina Creatinine [Mass/Vol] 0.85 mg/dL Normal 0.52-1.04 [facility] Comment on above: Performed By: #### I DOTTIE #### [facility] [address] [place] [address] Katherin Dina EGFR-AF JAMAICAN >60 Normal >=60 [facility] Comment on above: Performed By: #### I DOTTIE #### [facility] [address] [place] [address] Katherin Dina EGFR-NON AF [place]ICAN >60 Normal >=60 [facility] Comment on above: Performed By: #### I DOTTIE #### [facility] [address] [place] [address] Katherin Dina Globulin (S) [Mass/Vol] 4.0 g/dL Normal [facility] Comment on above: Performed By: #### I DOTTIE #### [facility] [address] [place] [address] Katherin Dina Glucose [Mass/Vol] 99 mg/dL Normal 74-106 [facility] Comment on above: Performed By: #### I DOTTIE #### [facility] [address] [place] [address] Katherin Dina Potassium [Moles/Vol] 4.1 mmol/L Normal 3.4-5.0 [facility] Comment on above: Performed By: #### I DOTTIE #### [facility] [address] [place] [address] Katherin Dina Protein [Mass/Vol] 7.7 g/dL Normal 6.1-8.2 [facility] Comment on above: Performed By: #### I DOTTIE #### [facility] [address] [place] [address] Katherin Dina Sodium [Moles/Vol] 140 mmol/L Normal 137-145 [facility] Comment on above: Performed By: #### I DOTTIE #### [facility] [address] [place], [place] [address] Katherin Arroyo Urea nitrogen [Mass/Vol] 15.0 mg/dL Normal 7.0-17.0 [facility] Comment on above: Performed By: #### I DOTTIE #### [facility] [address] [place], [place] [address] Katherin Arroyo Urea nitrogen/Creatinine [Mass ratio] 17.6 mg/mg Normal [facility] Comment on above: Performed By: #### I DOTTIE #### [facility] [address] [place], [place] [address] Katherin Arroyo TSHon 07-07-2021 TSH 2.729 uIU/mL Normal 0.470-4.680 [facility] Comment on above: Performed By: #### I DOTTIE #### [facility] [address] [place] [id number] Katherin Arroyo TSH RANGE SEE BELOW Normal [facility] Comment on above: Result Comment: <0.3 4 UIU/ml HYPERTHYROID 0.34-5.60 UIU/ml EUTHYROID >5.60 UIU/ml HYPOTHYROID Performed By: #### I DOTTIE #### [facility] [address] [place], [place] [address] Katherin Arroyo Vital Signs Date Time Vital Sign Value Performing Clinician Rosalva oscary 03-18-2025 15:39-0400 Body mass index (BMI) [Ratio] 38.33 kg/m2 [employer] Work Phone: [facility] 03-18-2025 15:39-0400 Body weight 131.77 kg Bubbly DO Work Phone: [facility] 03-18-2025 15:39-0400 Diastolic blood pressure 90 mm[Hg] [employer] Work Phone: [facility] 03-18-2025 15:39-0400 Systolic blood pressure 150 mm[Hg] [employer] Work Phone: [facility] 02-27-2025 10:09-0400 Body mass index (BMI) [Ratio] 37.84 kg/m2 Kurtis José Miguel DO Work Phone: [facility] 02-27-2025 10:09-0400 Body weight 130.09 kg Kurtis José Miguel DO Work Phone: [facility] 02-27-2025 10:09-0400 Diastolic blood pressure 84 mm[Hg] Kurtis José Miguel DO Work Phone: [facility] 02-27-2025 10:09-0400 Systolic blood pressure 124 mm[Hg] Kurtis José Miguel DO Work Phone: [facility] Encounters Encounter Date Encounter Type Care Provider Facility Start: 03-18-2025 End: 03-18-2025 ambulatory KURTIS JOSÉ MIGUEL Not Available Start: 03-18-2025 End: 03-18-2025 Office outpatient visit 15 minutes Kurtis José Miguel DO Work Phone: [facility] Comment on above: Pre-op examination; Postmenopausal bleeding; Thickened endometrium Start: 03-18-2025 End: 03-18-2025 Preprocedural examination done Kurtis José Miguel DO Work Phone: [facility] Start: 03-18-2025 End: 03-18-2025 ambulatory KURTIS JOSÉ MIGUEL Not Available Start: 02-27-2025 End: 02-27-2025 Bamboo flowsheet Kurtis José Miguel DO Work Phone: [facility] Start: 02-27-2025 End: 02-27-2025 Bamboo flowsheet Kurtis José Miguel DO Work Phone: [facility] Start: 02-27-2025 End: 02-27-2025 Office outpatient visit 15 minutes Kurtis José Miguel DO Work Phone: [facility] Comment on above: Postmenopausal bleed ing Start: 02-27-2025 End: 02-27-2025 ambulatory KURTIS JOSÉ MIGUEL Not Available Start: 07-08-2024 End: 07-08-2024 Refill Lefty Echols DO Work Phone: [facility] Comment on above: Age-related nuclear cataract of both eyes Start: 05-21-2024 End: 05-21-2024 ambulatory LEFTY ECHOLS Not Available Start: 06-19-2022 Encounter for genera l adult medical examination without abnormal findings DR RADHA LENTZ [facility] Start: 06-15-2022 End: 06-16-[address] RADHA LENTZ Facility:[facility] Start: 06-15-2022 End: 06-16-2022 Encounter for general adult medical examination without abnormal findings DR RADHA LENTZ Facility:[facility] Start: 07-07-2021 End: 07-08-[address] RADHA LENTZ Facility:[facility] Plan of Treatment Date Care Activity Detail Author Start: 07-14-2025 Influenza vaccination Influenz a Vaccine (Season Ended) [facility] Start: 04-21-2025 End: 04-21-2025 Patient encounter procedure 04/21/2025 1:20 PM EDT Office Visit [facility] [address] [facility] [place] [id number] Bisi Bains PA [address] [place] [address] [facility] Start: 03-18-2025 End: 03-18-2025 Patient encounter procedure 03/18/2025 2:40 PM EDT Consult [facility] [address] [place] [phone] Kurtis Valdez DO [address] [place] [address] [facility] Start: 03-18-2025 End: 03-18-2025 Professional / ancillary services management 03/18/2025 2:00 PM EDT Ancillary Procedure [facility] [address] [place] [id number] [facility] Start: 02-27-2025 End: 08-29-2025 US Pelvis US Pelvis w/ TV Imaging Routine Postmenopausal bleeding Expected: 02/27/2025, Expires: 08/29/2025 [facility] Work Phone: Comment on above: Expected: 02/27/2025 , Expires: 08/29/2025 Start: 02-27-2025 End: 02-27-2025 Patient encounter procedure 02/27/2025 10:00 AM EDT Office Visit [facility] [address] [place] [address] Kurtis Valdez DO [address] [place] [address] Arrived [facility] Comment on above: Arrived Start: 07-22-2024 End: 07-22-2024 Patient encounter procedure 07/22/2024 7:45 AM EDT Procedure Visit [facility] Lefty Echols, DO [address] [place] [address] [facility] Start: 07-14-2024 Influenza vaccination Influenza Vacc ine (#1) [facility] Start: 2023 Pneumococcal Vaccine : 65+ Years (1 of 1 - PCV) Pneumococcal Vaccine: 65+ Years (1 of 1 - PCV) [facility] Start: 2008 Pneumococcal Vaccine : 65+ Years (1 of 1 - PCV) Pneumococcal Vaccine: 65+ Years (1 of 1 - PCV) [facility] Start: 1998 Screening for malign ant neoplasm of breast Mammogram [facility] Start: 1960 Screening for malign ant neoplasm of colon [facility] Immunizations Immunization Date Immunization Notes Care Provider Fa cility 10-13-2017 influenza virus vacc ine, unspecified formulation Lefty Echols DO Work Phone: [facility] Healthcare Payers Date Payer Category Payer Private Health Insurance [facility] [place] [id number] 2023 Unknown [id number] 2023 Medicare MEDICARE [id number] 2023 Medicare [id number] 1960 Unknown [id number] 1958 Unknown [id number] 1958 Unknown [id number] 1958 Unknown [id number] 1958 Unknown [id number] 1958 Unknown [id number] Unknown [id number] Social History Date Type Detail Facility Start: [facility]21-2024 [facility] Work Phone: History of tobacco use Current smoker [facility] History of tobacco use Cigarette Smoker [facility] Start: 05-21-2024 Tobacco use and exposure Smokeless tobacco non-user [facility] Start: 05-21-2024 Alcoholic beverage intake Lifetime non-drinker (finding) [facility] Start: 07-20-2023 End: 05-21-2024 History of Social function [facility] Start: 07-20-2023 End: 05-21-2024 Tobacco use panel [facility] Start: 1960 Sex assigned at Not on file [facility] History of Present illness Narrative 03-18-2025 Rubi Cabrera LPN - 03/18/2025 2:40 PM EDT Note Date & Type Note Facility 03-18-2025 History of Presen t illness Narrative Reason for Appointment: Patient ID: Naz Juan is a 64 y.o. female who presents for Pre-op Visit Patient presents today for Pre Op appointment. Patient is scheduled to undergo D&C Hysteroscopy, possible Myosure on 04/11/[address] Valdez at [facility]. MEDICATIONS Current Outpatient Medications Medication Instructions albuterol (2.5 MG/3ML) 0.083% nebulizer solution Nebulization, Every 6 hours PRN amLODIPine (Norvasc) 5 MG tablet TAKE 1 TABLET BY MOUTH EVERY DAY FOR 30 DAYS carvedilol (Coreg) 25 MG tablet TAKE 1 TABLET BY MOUTH TWICE A DAY WITH FOOD FOR 90 DAYS [facility] D3 125 MCG (5000 UT) capsule TAKE 1 CAPSULE BY MOUTH ONCE A DAY DIRECTED esomeprazole (NEXIUM) 20 mg, Oral, Daily before breakfast, Do not open capsule. furosemide (Lasix) 40 MG tablet TAKE 1 TABLET BY MOUTH EVERY DAY FOR 90 DAYS hyoscyamine (Levsin) 0.125 MG SL tablet DISSOLVE 1 TABLET UNDER TONGUE BEFORE MEALS AND AT BEDTIME NEEDED FOR ABDOMINAL PAIN ibuprofen 600 MG tablet Every 8 hours losartan (Cozaar) 100 MG tablet Every 24 hours potassium chloride CR (Klor-Con) 10 MEQ ER tablet 10 mEq, Oral, 2 times daily simvastatin (ZOCOR) 20 mg, Oral, Daily ALLERGIES Allergies Allergen Reactions Penicillins PROBLEMS Active Ambulatory Problems Diagnosis Date Noted Age-related nuclear cataract of both eyes 05/21/2024 Epiretinal membrane (ERM) of left eye 05/21/2024 Resolved Ambulatory Problems Diagnosis Date Noted No Resolved Ambulatory Problems Past Medical History: Diagnosis Date Arthritis HTN (hypertension) (CMS/HCC) Hypercholesteremia (CMS/HCC) HISTORY PAST MEDICAL HISTORY SOCIAL HISTORY Past Medical History: Diagnosis Date Arthritis HTN (hypertension) (CMS/HCC) Hypercholesteremia (CMS/HCC) Social History Tobacco Use Smoking status: Former Types: Cigarettes Smokeless tobacco: Never Substance Use Topics Alcohol use: Never Drug use: Never FAMILY HISTORY Family History Problem Relation Name Age of Onset Cancer Other Diabetes Sibling Heart disease Sibling SURGICAL HISTORY Past Surgical History: Procedure Laterality Date TONSILLECTOMY REVIEW OF SYSTEMS Review of Systems: Review of Systems Constitutional: Negative. HENT: Negative. Eyes: Negative. Respiratory: Negative. Cardiovascular: Negative. Gastrointestinal: Negative. Genitourinary: Positive for vaginal bleeding. Musculoskeletal: Negative. Skin: Negative. Neurological: Negative. All other systems reviewed and are negative. Hematological: Negative. Endocrine: Negative. Allergic/Immunologic: Negative. OBJECTIVE Objective: Physical Exam Constitutional: Appearance: Normal appearance. She is well-developed. Cardiovascular: Rate and Rhythm: Normal rate and regular rhythm. Pulmonary: Effort: Pulmonary effort is normal. Breath sounds: Normal breath sounds. Abdominal: General: Bowel sounds are normal. There is no distension. Palpations: Abdomen is soft. Tenderness: There is no abdominal tenderness. There is no guarding or rebound. Musculoskeletal: General: No swelling. Normal range of motion. Right lower leg: No edema. Left lower leg: No edema. Neurological: Mental Status: She is alert and oriented to person, place, and time. Skin: General: Skin is warm and dry. Psychiatric: Mood and Affect: Mood normal. Behavior: Behavior normal. Vitals and nursing note reviewed. Exam conducted with a coffee shop attendant present. Vitals: Estimated body mass index is 38.33 kg/m as calculated from the following: Height as of 07/04/23: 6' 1 . Weight as of this encounter: 290 lb 8 oz. BP: 150/90 No LMP recorded. ASSESSMENT & PLAN ICD-10-CM 1. Pre-op examination Z01.818 2. Postmenopausal bleeding N95.0 3. Thickened endometrium R93.89 Pre Op: Patient is doing well but has complaints of postmenopausal bleeding. I have discussed conservative management vs. surgical management with the patient in detail and patient desires surgical management at this time. Patient will undergo D&C Hysteroscopy, possible Myosure on 04/11/25. Surgical consents were signed, mmc was reviewed, and patient is to proceed to [facility] OR. Follow Up: Patient is to follow up between 1-2 weeks post operative to assess proper healing and recovery from procedure. Documented by Dina Dawson LPN on behalf of: Kurtis Valdez DO documented in this encounter [facility] History of Present illness Narrative 02-27-2025 Rubi Cabrera LPN - 02/27/2025 10:00 AM EDT Note Date & Type Note Facility 02-27-2025 History of Presen t illness Narrative Reason for Appointment: Patient ID: Naz Juan is a 64 y.o. female who presents for PMB Patient presents today for Consult appointment. MEDICATIONS Current Outpatient Medications Medication Instructions albuterol (2.5 MG/3ML) 0.083% nebulizer solution Nebulization, Every 6 hours PRN amLODIPine (Norvasc) 5 MG tablet TAKE 1 TABLET BY MOUTH EVERY DAY FOR 30 DAYS carvedilol (Coreg) 12.5 MG tablet TAKE 1 TABLET BY MOUTH TWICE A DAY WITH FOOD FOR 90 DAYS carvedilol (Coreg) 25 MG tablet TAKE 1 TABLET BY MOUTH TWICE A DAY WITH FOOD FOR 90 DAYS [facility] D3 125 MCG (5000 UT) capsule TAKE 1 CAPSULE BY MOUTH ONCE A DAY DIRECTED esomeprazole (NEXIUM) 20 mg, Oral, Daily before breakfast, Do not open capsule. furosemide (Lasix) 40 MG tablet TAKE 1 TABLET BY MOUTH EVERY DAY FOR 90 DAYS hyoscyamine (Levsin) 0.125 MG SL tablet DISSOLVE 1 TABLET UNDER TONGUE BEFORE MEALS AND AT BEDTIME NEEDED FOR ABDOMINAL PAIN ibuprofen 600 MG tablet Every 8 hours losartan (Cozaar) 100 MG tablet Every 24 hours ondansetron ODT (Zofran-ODT) 4 MG disintegrating tablet DISSOLVE 1 TABLET ON THE TONGUE EVERY 6 HOURS NEEDED FOR NAUSEA FOR 3 DAYS potassium chloride CR (Klor-Con) 10 MEQ ER tablet 10 mEq, Oral, 2 times daily simvastatin (ZOCOR) 20 mg, Oral, Daily ALLERGIES Allergies Allergen Reactions Penicillins PROBLEMS Active Ambulatory Problems Diagnosis Date Noted Age-related nuclear cataract of both eyes 05/21/2024 Epiretinal membrane (ERM) of left eye 05/21/2024 Resolved Ambulatory Problems Diagnosis Date Noted No Resolved Ambulatory Problems Past Medical History: Diagnosis Date Arthritis HTN (hypertension) (CMS/HCC) Hypercholesteremia (CMS/HCC) HISTORY PAST MEDICAL HISTORY SOCIAL HISTORY Past Medical History: Diagnosis Date Arthritis HTN (hypertension) (CMS/HCC) Hypercholesteremia (CMS/HCC) Social History Tobacco Use Smoking status: Former Types: Cigarettes Smokeless tobacco: Never Substance Use Topics Alcohol use: Never Drug use: Never FAMILY HISTORY Family History Problem Relation Name Age of Onset Cancer Other Diabetes Sibling Heart disease Sibling SURGICAL HISTORY Past Surgical History: Procedure Laterality Date TONSILLECTOMY REVIEW OF SYSTEMS Review of Systems: Review of Systems All other systems reviewed and are negative. OBJECTIVE Objective: Physical Exam Constitutional: Appearance: Normal appearance. She is well-developed. Cardiovascular: Rate and Rhythm: Normal rate and regular rhythm. Pulmonary: Effort: Pulmonary effort is normal. Breath sounds: Normal breath sounds. Abdominal: General: Bowel sounds are normal. There is no distension. Palpations: Abdomen is soft. Tenderness: There is no abdominal tenderness. There is no guarding or rebound. Musculoskeletal: General: No swelling. Normal range of motion. Right lower leg: No edema. Left lower leg: No edema. Neurological: Mental Status: She is alert and oriented to person, place, and time. Skin: General: Skin is warm and dry. Psychiatric: Mood and Affect: Mood normal. Behavior: Behavior normal. Vitals and nursing note reviewed. Exam conducted with a coffee shop attendant present. Vitals: Estimated body mass index is 37.84 kg/m as calculated from the following: Height as of 07/04/23: 6' 1 . Weight as of this encounter: 286 lb 12.8 oz. BP: 124/84 No LMP recorded. ASSESSMENT & PLAN ICD-10-CM 1. Postmenopausal bleeding N95.0 US Pelvis w/ TV Patient presents to office for post menopausal bleeding. Patient voiced she is having heavy bleeding today, which started last . When vaginal bleeding first started it was mild-moderate in flow, but increased today. Patient has complaints of dull pain but not true menstrual cramps. Discussed possible causes of vaginal bleeding with patient & informed her that recommendations are to have workup. Ordered ultrasound and will setup date or surgical procedure. Patient was informed of conservative verses surgical management and would like to proceed to OR for D&C Hysteroscopy. Patient to setup pre-op and US appointment prior to leaving office today. Documented by Rubi Cabrera LPN on behalf of: Kurtis Valdez DO documented in this encounter [facility] Evaluation note Note Date & Type Note Facility Evaluation note Diagnosis Age-related nuclear cataract of both eyes documented in this encounter [facility] Evaluation note Note Date & Type Note Facility Evaluation note Diagnosis Postmenopausal bleeding documented in this encounter [facility] Evaluation note Note Date & Type Note Facility Evaluation note Diagnosis Pre-op examination Postmenopausal bleeding Thickened endometrium Nonspecific (abnormal) findings on radiological and other examination of genitourinary organs documented in this encounter [facility] Summary Purpose Family History No Family History Records FoundNo Family History Records Found Advance Directives No Advanced Directives Records FoundNo Advanced Directives Records Found Additional Source Comments INFORMATION SOURCE (unrecogn ized section and content) DATE CREATED AUTHOR 06/19/2022 [facility] DATE CREATED AUTHOR AUTHOR'S ORGANIZ ATION 03/21/2025 [facility] EPIC Reason for Visit (unrecogniz ed section and content) Reason Comments Med Refill Reason Comments PMB Reason Comments Pre-op Visit Care Teams (unrecognized sec tion and content) Poly Area Supervisor Relationship Specialty Start Date End Date Radha Lentz MD [address] [place] [phone] - General Family Medicine 07/04/23 Berta Lovelace MD [address] [place] [address] Referring Physician Optometry 05/21/24 Poly Area Supervisor Relationship Specialty Start Date End Date Radha Lentz MD [address] [place] [phone] PCP - General Family Medicine 07/04/23 Berta Rivero OD [address] [place] [address] Referring Physician Optometry 05/21/24 Poly Area Supervisor Relationship Specialty Start Date End Date Radha Lentz MD [address] [place] [address] PCP - General Family Medicine 07/04/23 Berta Rivero OD [address] [place] [address] Referring Physician Optometry 05/21/24 FOR RECORDS PERTAINING TO PATIENTS WHO ARE OR HAVE BEEN ENROLLED IN A CHEMICAL DEPENDENCY/SUBSTANCEABUSE PROGRAM, SOME INFORMATION MAY BE OMITTED. This clinical summary was aggregated from multiple sources. Caution should be exercised in using it in the provision of clinical care. This summary normalizes information from multiple sources, and as a consequence, information in this document may materially change the coding, format and clinical context of patient data. In addition, data may be omitted in some cases. CLINICAL DECISIONS SHOULD BE BASED ON THE PRIMARY CLINICAL RECORDS. [facility] [employer] [facility]. provides no warranty or guarantee of the accuracy or completeness of information in this document.
--- NOTE | 2025-04-01 09:03 | ECG_ITS ---
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 Measurements Intervals [place] Rate: 55 P: 40 AK: 162 QRS: 30 QRSD: 89 T: 23 QT: 414 QTc: 398 Interpretive Statements SINUS BRADYCARDIA Borderline ECG Compared to ECG 01/04/2017 20:11:26 Heart rate has decreased Electronically Signed On 04-01-2025 18:34:40 EDT by MAC ECHOLS M.D.
[2025-04-01 11:43] LABS: Anion Gap 14.7; BUN Creatinine Ratio 20.9; Carbon Dioxide 29.7 mmol/L (21.0-32.0); Chloride 105 mmol/L (98-107); Estimated GFR (African America >60 (>=60 mL/min/1.73m^2); Estimated GFR (Non-African Ame >60 (>=60 mL/min/1.73m^2); Glucose 112 mg/dL (74-106); Potassium 4.4 mmol/L (3.5-5.1); Sodium 145 mmol/L (136-145)
== END 2025-04-01 08:56 | disposition home or self-care (01) ==
PROVIDERS: PCP Family Medicine; Visit Provider Obstetrics & Gynecology
DX: Z01.812 Encounter for preprocedural laboratory examination (principal); Z01.810 Encounter for preprocedural cardiovascular examination; N95.0 Postmenopausal bleeding
CPT/HCPCS: 36415; 80048; 93005

== ENCOUNTER 2025-04-11 08:53 | Day surgery (SDC) | payer MEDICARE, OTHER, SELFPAY ==
[2025-04-01 09:32] VITALS: BP 138/85; PULSE 60; TEMP 36.6; O2SAT 99; BMI 39.7
[2025-04-11 09:02] LABS: Basophils Absolute Auto 0.1 10^3/uL (0.0-0.1); Basophils Percent Auto 0.8 % (0.2-2.0); Eosinophils Absolute Auto 0.1 10^3/uL (0.0-0.7); Eosinophils Percent Auto 0.8 % (0.9-7.0); Hematocrit 39.4 % (36.0-48.0); Hemoglobin 12.8 g/dL (12.0-16.0); Immature Granulocytes Abs Auto 0.03 10^3/uL (0.00-0.03); Immature Granulocytes Pct Auto 0.5 % (0.0-0.5); Lymphocytes Absolute Auto 1.1 10^3/uL (1.2-3.8); Lymphocytes Percent Auto 17.2 % (20.5-60.0); Mean Corpuscular HGB Conc 32.5 g/dL (29.9-35.2); Mean Corpuscular Hemoglobin 28.9 pg (26.7-34.0); Mean Corpuscular Volume 88.9 fL (81.0-99.0); Mean Platelet Volume 10.7 fL (9.5-13.5); Monocytes Absolute Auto 0.4 10^3/uL (0.3-0.8); Monocytes Percent Auto 6.2 % (1.7-12.0); Neutrophils Absolute Auto 4.6 10^3/uL (1.4-6.5); Neutrophils Percent Auto 74.5 % (43.0-75.0); Platelet Count 212 10^3/uL (150-450); Red Blood Count 4.43 10^6/uL (4.20-5.40); Red Cell Distribution Width 12.8 % (11.0-15.0); White Blood Count 6.1 10^3/uL (4.0-11.0)
--- OUTSIDE RECORDS SUMMARY | 2025-04-11 09:17 | XMS_ITS | CCD ---
Author Organization [facility] Care Team Providers Care Manager Search Name Role Phone DR RADHA LENTZ Admitting Unavailable KISHOR, DR GARCIA Attending Unavailable KISHOR, DR GARCIA Referring Unavailable KISHOR, DR GARCIA Primary Care Unavailable KISHOR, DR GARCIA Consulting Unavailable KISHOR, DR GARCIA Admitting Unavailable KISHOR, DR GARCIA Attending Unavailable KISHOR, DR GARCIA Primary Care Unavailable KISHOR, DR GARCIA Consulting Unavailable Radha Lentz MD Primary Care Provider [phone] Berta Lovelace MD Unavailable Berta Rivero OD Unavailable Radha Lentz MD Primary Care Provider [phone] KURTIS VALDEZ Attending Unavailable LEFTY ECHOLS Attending Unavailable KURTIS VALDEZ Attending Unavailable Allergies Allergy Classification Reported Allergen(s) Allergy Type Date of Onset Reaction(s) Facility (1 source) Sulfamethoxazole / Trimethoprim Drug Allergy 12-04-19 17 [facility] Repository (6 sources) Penicillins Propensity to adverse reactions 02-28-20 25 [facility] Healthcare Medications Current Medications Medication Drug Class(es) Dates Sig (Normalized) Sig (Original) albuterol 0.83 mg/ml inhalation solution (8 sources) beta2-Adrenergic Agonist albuterol (2.5 MG/3ML) 0.083% nebulizer solution Take by nebulization every 6 (six) hours if needed for wheezing. Active amLODIPine 5 mg oral tablet (8 sources) Dihydropyridine Calcium Channel [place] Start: 05-24-2023 take 1 tablet by mouth once daily amLODIPine (Norvasc) 5 MG tablet TAKE 1 TABLET BY MOUTH EVERY DAY FOR 30 DAYS 05/24/2023 Active carvedilol 25 mg oral tablet (13 sources) alpha-Adrenergic Lorena, beta-Adrenergic [place] Start: 04-11-2024 [...] 03/18/2025 Discontinued cholecalciferol 0.125 mg oral capsule (8 sources) Vitamin D Start: 04-13-2023 take 1 capsule by mouth once daily [facility] D3 125 MCG (5000 UT) capsule TAKE 1 CAPSULE BY MOUTH ONCE A DAY DIRECTED 04/13/2023 Active esomeprazole 20 mg delayed release oral capsule (8 sources) Proton Pump Inhibitor take 1 capsule by mouth before mealtime esomeprazole (NexIUM) [address] capsule Take 20 mg by mouth in the morning. Take before meals. Do not open capsule.. Active furosemide 40 mg oral tablet (8 sources) Loop Diuretic Start: 04-13-2023 take 1 tablet by mouth once daily furosemide (Lasix) 40 MG tablet TAKE 1 TABLET BY MOUTH EVERY DAY FOR 90 DAYS 04/13/2023 Active hyoscyamine sulfate 0.125 mg sublingual tablet (8 sources) Start: 02-20-2024 hyoscyamine (Levsin) 0.125 MG SL tablet DISSOLVE 1 TABLET UNDER TONGUE BEFORE MEALS AND AT BEDTIME NEEDED FOR ABDOMINAL PAIN 02/20/2024 Active ibuprofen 600 mg oral tablet (8 sources) Nonsteroidal Anti-inflammatory Drug ibuprofen 600 MG [...] Active losartan potassium 100 mg oral tablet (8 sources) Angiotensin 2 Receptor [place]orena losartan (Cozaar) 100 MG tablet 1 (one) time each day at the same time. Active potassium chloride 10 meq extended release oral tablet (8 sources) Start: 05-31-2023 take 1 tablet by mouth in the morning potassium chloride CR (Klor-Con) 10 MEQ ER tablet Take 10 mEq by mouth in the morning and 10 mEq before bedtime. 05/31/2023 Active simvastatin 20 mg oral tablet (8 sources) HMG-CoA Reductase Inhibitor Start: 04-13-2023 take [...] Classification Problem Date Documented Date Episodic/Chronic Cataract (9 sources) Bilateral age-related nuclear cataracts; Translations: [Age-related [...] Retinal detachments; defects; vascular occlusion; and retinopathy (8 sources) Epiretinal membrane of left eye; Translations: [Puckering of macula, left eye] Onset: 05-21-2024 05-21-2024 Chronic Results Test Name Value Interpretation Reference Range Facility ALL CBC WITH AUTO DIFFon BASOPHILS ABSOLUTE AUTO 0.1 [facility] Basophils/100 WBC (Bld) 0.8 % 0.2 - 2.0 % [facility] Eosinophils/100 WBC (Bld) 0.8 % Low 0.9 - 7.0 % [facility] Erythrocyte distribution width (RBC) [Ratio] 12.8 % 11.0 - 15.0 % [facility] Hematocrit (Bld) [Volume fraction] 39.4 % 36.0 - 48.0 % [facility] Hemoglobin (Bld) [Mass/Vol] 12.8 g/dL 12.0 - 16.0 g/dL [facility] IMMATURE GRANULOCYTES ABS AUTO 0.03 [facility] Immature granulocytes/100 WBC (Bld) 0.5 % 0.0 - 0.5 % [facility] Interpretation and review of laboratory results Abnormal [facility] LYMPHOCYTES ABSOLUTE AUTO 1.[address] [facility] Lymphocytes/100 WBC (Bld) 17.2 % Low 20.5 - 60.0 % [facility] MCH (RBC) [Entitic mass] 28.9 pg 26.7 - 34.[address] [facility] MCHC (RBC) [Mass/Vol] 32.5 g/dL 29.9 - 35.2 g/dL [facility] MCV (RBC) [Entitic vol] 88.9 fL 81.0 - 99.[address] [facility] MONOCYTES ABSOLUTE AUTO 0.4 [facility] Monocytes/100 WBC (Bld) 6.2 % 1.7 - 12.0 % [facility] NEUTROPHILS ABSOLUTE AUTO 4.6 [facility] Neutrophils/100 WBC (Bld) 74.5 % 43.0 - 75.0 % [facility] Platelet mean volume (Bld) [Entitic vol] 10.7 fL 9.5 - 13.[address] [facility] EO # 0.1 [facility] PLT [address] [facility] RBC 4.[address] [facility] WBC 6.1 [facility] ALL BASIC METABOLIC PANELon 04-01-2025 Anion gap [Moles/Vol] 14.7 mmol/L [facility] Calcium [Mass/Vol] 9 mg/dL 8.5 - 10. 1 mg/dL [facility] Chloride [Moles/Vol] 105 mmol/L 98 - 10 7 mmol/L [facility] CO2 [Moles/Vol] 29.7 mmol/L 21.0 - 32.0 mmol/L [facility] Creatinine [Mass/Vol] 0.91 mg/dL 0.55 - 1.02 mg/dL [facility] GFR/1.73 sq M.predicted CKD-EPI (S/P/Bld) [Vol rate/Area] >60 >=60 mL/min/1.73m 2 [facility] Glucose [Mass/Vol] 112 mg/dL High 74 - 106 mg/dL [facility] Interpretation and review of laboratory results Abnormal [facility] Potassium [Moles/Vol] 4.4 mmol/L 3.5 - 5.1 mmol/L [facility] Sodium [Moles/Vol] 145 mmol/L 136 - 145 mmol/L [facility] EGFR-NON AF LIBERIAN >60 >=60 mL/min/1.73m 2 [facility] Urea nitrogen [Mass/Vol] 19 mg/dL High 7.0 - 18.0 mg/dL [facility] Urea nitrogen/Creatinine [Mass ratio] 20.9 mg/mg [facility] ECG 12-LEADon 04-01-2025 [place] [address] Electrocardiograph Report Signed Patient: DELMIS MTZ MR#: [id number] : 1960 Acct:[id number] Age/Sex: 64 / F ADM Date: 04/01/25 Loc: [facility] Attending Dr: Kurtis Valdez D.O. Ordering Physician: Kurtis Valdez D.O. Date of Service: 04/01/25 Procedure(s): ECG 12 lead Accession Number(s): [id number] cc: [facility] Test Date: 2025-04-01 Pat Name: DELMIS MTZ Department: Room: - Gender: Female Secondary Set Up Man: : 1960 Requested By: KURTIS VALDEZ Order Number: [id number] Reading MD: MAC ECHOLS M.D. Measurements Intervals [place] Rate: 55 P: 40 GA: 162 QRS: 30 QRSD: 89 T: 23 QT: 414 QTc: 398 Interpretive Statements SINUS BRADYCARDIA Borderline ECG Compared to ECG 01/04/2017 20:11:26 Heart rate has decreased Electronically Signed On 04-01-2025 18:34:40 EDT by MAC ECHOLS M.D. Dictated By: MAC ECHOLS Signed By: 04/01/251834 DD/ 2 TD/TT: Ship Steward: [facility] Radiology, Radiologist, - 04/01/2025 [facility] [place] [id number] Electrocardiograph Report Signed Patient: DELMIS MTZ MR#: [id number] : 1960 Acct:[id number] Age/Sex: 64 / F ADM Date: 04/01/25 Loc: [facility] Attending Dr: Kurtis Valdez D.O. Ordering Physician: Kurtis Valdez D.O. Date of Service: 04/01/25 Procedure(s): ECG 12 lead Accession Number(s): [id number] cc: [facility] Test Date: 2025-04-01 Pat Name: DELMIS MTZ Department: Room: - Gender: Female Secondary Set Up Man: : 1960 Requested By: KURTIS VALDEZ Order Number: [id number] Reading MD: MAC ECHOLS M.D. Measurements Intervals [place] Rate: 55 P: 40 GA: 162 QRS: 30 QRSD: 89 T: 23 QT: 414 QTc: 398 Interpretive Statements SINUS BRADYCARDIA Borderline ECG Compared to ECG 01/04/2017 20:11:26 Heart rate has decreased Electronically Signed On 04-01-2025 18:34:40 EDT by MAC ECHOLS M.D. Dictated By: MAC ECHOLS Signed By: 04/01/251834 DD/ 2 TD/TT: Ship Steward: [facility] [employer] Radiology Study observation (narrative) [facility] [employer] ECG 12-LEADOrdered By: [facility] on 04-01-2025 [facility] [employer] Work Phone: US PELVIC COMPLETE W/ TVon 0 03-18-2025 [...] II, MD, PHD at 19-Mar-2025 08:43:41 AM [facility]eler[facility] Normal Not Available Comment on above: Order Comment: US PE LVIS-TRANSVAG IF INDICATED No LMP recorded. INSULINon 06-16-2022 Insulin 24.6 uIU/mL Normal 2.6-24.9 [facility] Comment on above: Performed By: #### I NSULIN #### [facility] [address] [place], [place] [address] Dr. Ghassan Mena VIT D 25-OH LABCORPon 2021 Vitamin D, 25-Hydroxy 57.2 ng/mL Normal 30.0-100.0 [facility] Comment on above: Result Comment: Jany min D deficiency has been defined by the [place] of [employer] and an Endocrine Society practice guideline as a level of serum 25-OH vitamin D less than 20 ng/mL (1,2). The Endocrine Society went on to further define vitamin D insufficiency as a level between 21 and 29 ng/mL (2). 1. IOM ([place] of [employer]). 2010. Dietary reference intakes for calcium and D. [place]: The National Academies Press. 2. Nadia MF, [place]in [place], Sha-Hao ABAD, et al. Evaluation, treatment, and prevention of vitamin D deficiency: an Endocrine Society clinical practice guideline. JCEM. 2010; 96(7):1911-30. Performed By: #### I DOTTIE #### [facility] [address] [place], [place] [address] Katherin Arroyo CBC AUTO DIFFon 06-15-2022 BASO # 0.0 103/ul Normal 0.0-0.1 [facility] Comment on above: Performed By: #### I DOTTIE #### [facility] [address] [place], [place] [address] Katherin Dina Basophils/100 WBC (Bld) 0.7 % Normal 0.2-2.0 [facility] Comment on above: Performed By: #### I DOTTIE #### [facility] [address] [place], [place] [address] Katherin Dina EO # 0.1 103/ul Normal 0.0-0.7 [facility] Comment on above: Performed By: #### I DOTTIE #### [facility] [address] [place] [address] Katherin Dina Eosinophils/100 WBC (Bld) 1.1 % Normal 0.9-7.0 [facility] Comment on above: Performed By: #### I DOTTIE #### [facility] [address] [place] [address] Katherin Dina Erythrocyte distribution width (RBC) [Ratio] 12.8 % Normal 11.0-15.0 [facility] Comment on above: Performed By: #### I DOTTIE #### [facility] [address] [place], [place] [address] Katherin Dina Hematocrit (Bld) [Volume fraction] 40.9 % Normal 36.0-48.0 [facility] Comment on above: Performed By: #### I DOTTIE #### [facility] [address] [place] [address] Katherin Dina Hemoglobin (Bld) [Mass/Vol] 13.3 g/dL Normal 12.0-16.0 [facility] Comment on above: Performed By: #### I DOTTIE #### [facility] [address] [place] [address] Katherin Dina IG # 0.01 10e3/ul Normal 0.00-0.03 [facility] Comment on above: Performed By: #### I DOTTIE #### [facility] [address] [place] [address] Katherin Dina IG % 0.2 % Normal 0.0-0.5 [facility] Comment on above: Performed By: #### I DOTTIE #### [facility] [address] [place] [id number] Katherin Dina LYMPH # 1.0 103/ul Critically low 1.2-3.8 [facility] Comment on above: Performed By: #### I DOTTIE #### [facility] [address] [place] [id number] Katherin Dina Lymphocytes/100 WBC (Bld) 18.7 % Critically low 20.5-60.0 [facility] Comment on above: Performed By: #### I DOTTIE #### [facility] [address] [place], [place] [address] Katherin Dina MANUAL DIFF REQ NO Normal [facility] Comment on above: Performed By: #### I DOTTIE #### [facility] [address] [place], [place] [address] Katherin Dina MCH (RBC) [Entitic mass] 28.8 pg Normal 26.7-34.0 [facility] Comment on above: Performed By: #### I DOTTIE #### [facility] [address] [place], [place] [address] Katherin Dina MCHC (RBC) [Mass/Vol] 32.5 g/dL Normal 29.9-35.2 [facility] Comment on above: Performed By: #### I DOTTIE #### [facility] [address] [place], [place] [address] Katherin Dina MCV (RBC) [Entitic vol] 88.5 fL Normal 81.0-99.0 [facility] Comment on above: Performed By: #### I DOTTIE #### [facility] [address] [place] [address] Katherin Dina MONO # 0.4 103/ul Normal 0.3-0.8 [facility] Comment on above: Performed By: #### I DOTTIE #### [facility] [address] [place], [place] [address] Katherin Dina Monocytes/100 WBC (Bld) 7.8 % Normal 1.7-12.0 [facility] Comment on above: Performed By: #### I DOTTIE #### [facility] [address] [place] [address] Katherin Batistaen NEUT # 3.9 103/ul Normal 1.4-6.5 [facility] Comment on above: Performed By: #### I DOTTIE #### [facility] [address] [place] [id number] Katherin Arroyo Neutrophils/100 WBC (Bld) 71.5 % Normal 43.0-75.0 [facility] Comment on above: Performed By: #### I DOTTIE #### [facility] [address] [place] [address] Katherin Arroyo Platelet mean volume (Bld) [Entitic vol] 11.0 fL Normal 9.5-13.5 [facility] Comment on above: Performed By: #### I DOTTIE #### [facility] [address] [place] [address] Katherin Dina PLT 201 103/ul Normal 150-450 [facility] Comment on above: Performed By: #### I DOTTIE #### [facility] [address] [place] [address] Katherin Dina RBC 4.62 106/ul Normal 4.20-5.40 [facility] Comment on above: Performed By: #### I DOTTIE #### [facility] [address] [place] [address] Katheriniliana Batistaen WBC 5.5 103/ul Normal 4.0-11.0 [facility] Comment on above: Performed By: #### I DOTTIE #### [facility] [address] [place] [address] Katherin Arroyo FREE THYROXINE INDEX T7on FTI 2.95 Normal 1.30-4.50 [facility] Comment on above: Performed By: #### L IPID, T7, TSH, CMP #### [facility] [address] [place] [address] Dr. Ghassan Mena T3U 31.0 % Normal 30.0-39.0 [facility] Comment on above: Performed By: #### L IPID, T7, TSH, CMP #### [facility] [address] [place] [address] [address] Ghassan Mena T4 [Mass/Vol] 9.50 ug/dL Normal 4.80-13.90 [facility] Comment on above: Performed By: #### L IPID, T7, TSH, CMP #### [facility] [address] [place] [address] [address] Ghassan Mena GLYCOHEMOGLOBIN A1Con 2021 ADA RECOMMENDATION SEE BELOW Normal [facility] Comment on above: Result Comment: ADA RECOMMENDED LIMIT 4.0 - 6.0 ADA THERAPEUTIC TARGET < 7.0 ACTION SUGGESTED > 7.0 Performed By: #### A 1C #### [facility] [address] [place] [address] Dr. Ghassan Mena Glucose [Mass/Vol] 131 mg/dL Normal [facility] Comment on above: Performed By: #### A 1C #### [facility] [address] [place] [address] Dr. Ghassan Mena HbA1c (Bld) [Mass fraction] 6.2 % Normal 4.5-6.2 [facility] Comment on above: Performed By: #### A 1C #### [facility] [address] [place] [address] Dr. Ghassan Mena IRONon 06-15-2022 Iron [Mass/Vol] 54.0 ug/dL Normal 50.0-170.0 [facility] Comment on above: Performed By: #### I DOTTIE #### [facility] [address] [place] [address] Dr. Ghassan Mena LIPID PROFILEon 06-15-2022 CHOL-HDL RATIO NORM SEE BELOW Normal [facility] Comment on above: Result Comment: 3.3 - 4.4 LOW RISK 4.4 - 7.1 AVERAGE RISK 7.1 - 11.0 MODERATE RISK >11.0 HIGH RISK Performed By: #### L IPID, T7, TSH, CMP #### [facility] [address] [place] [address] Dr. Ghassan Mena Cholesterol [Mass/Vol] 143 mg/dL Normal <=200 [facility] Comment on above: Performed By: #### L IPID, T7, TSH, CMP #### [facility] [address] [place] [address] [address] Ghassan Mena Cholesterol in HDL [Mass/Vol] 50 mg/dL Normal 40-60 [facility] Comment on above: Performed By: #### L IPID, T7, TSH, CMP #### [facility] [address] [place] [address] [address] Ghassan Mena Cholesterol in LDL [Mass/Vol] 76.8 mg/dL Normal [facility] Comment on above: Performed By: #### L IPID, T7, TSH, CMP #### [facility] [address] [place] [address] [address] Ghassan Mena Cholesterol.total/Ch olesterol in HDL [Mass ratio] 2.9 {ratio} Normal [facility] Comment on above: Performed By: #### L IPID, T7, TSH, CMP #### [facility] [address] [place] [address] [address] Ghassan Mena HDL NORMAL > or = 60 mg/dl - LO W CARDIOVASCULAR RISK <40 mg/dl - HIGH CARDIOVASCULAR RISK Normal [facility] Comment on above: Performed By: #### L IPID, T7, TSH, CMP #### [facility] [address] [place] [address] [address] Ghassan Mena LDL CALC NORMAL SEE BELOW Normal [facility] Comment on above: Result Comment: <100 mg/dl OPTIMAL 100 - 129 mg/dl NEAR OR ABOVE OPTIMAL 130 - 159 mg/dl BORDERLINE HIGH 160 - 189 mg/dl HIGH >190 mg/dl VERY HIGH Performed By: #### L IPID, T7, TSH, CMP #### [facility] [address] [place] [address] [address] Ghassan Mena Triglyceride [Mass/Vol] 81 mg/dL Normal <=150 [facility] Comment on above: Performed By: #### L IPID, T7, TSH, CMP #### [facility] [address] [place] [address] [address] Ghassan Mena VLDL CALC 16.2 mg/dL Normal [facility] Comment on above: Performed By: #### L IPID, T7, TSH, CMP #### [facility] [address] [place] [address] Dr. Ghassan Mena PROF 14(COMP METB)on 022 Albumin [Mass/Vol] 3.5 g/dL Normal 3.4-5.0 [facility] Comment on above: Performed By: #### L IPID, T7, TSH, CMP #### [facility] [address] [place] [address] Dr. Ghassan Mena Albumin/Globulin [Mass ratio] 0.9 {ratio} Normal [facility] Comment on above: Performed By: #### L IPID, T7, TSH, CMP #### [facility] [address] [place] [address] Dr. Ghassan Mena ALP [Catalytic activity/Vol] 83 U/L Normal 46-116 [facility] Comment on above: Performed By: #### L IPID, T7, TSH, CMP #### [facility] [address] [place] [address] Dr. Ghassan Mena ALT [Catalytic activity/Vol] 14 U/L Normal 14-59 [facility] Comment on above: Performed By: #### L IPID, T7, TSH, CMP #### [facility] [address] [place] [address] Dr. Ghassan Mena Anion gap [Moles/Vol] 11.3 mmol/L Normal [facility] Comment on above: Performed By: #### L IPID, T7, TSH, CMP #### [facility] [address] [place] [address] Dr. Ghassan Mena AST [Catalytic activity/Vol] 11 U/L Critically low 15-37 [facility] Comment on above: Performed By: #### L IPID, T7, TSH, CMP #### [facility] [address] [place] [address] Dr. Ghassan Mena Bilirubin [Mass/Vol] 0.5 mg/dL Normal 0.2-1.0 [facility] Comment on above: Performed By: #### L IPID, T7, TSH, CMP #### [facility] [address] [place] [address] Dr. Ghassan Mena Calcium [Mass/Vol] 8.9 mg/dL Normal 8.5-10.1 [facility] Comment on above: Performed By: #### L IPID, T7, TSH, CMP #### [facility] [address] [place] [address] [address] Ghassan Mena Chloride [Moles/Vol] 105 mmol/L Normal 98-107 [facility] Comment on above: Performed By: #### L IPID, T7, TSH, CMP #### [facility] [address] [place] [address] [address] Ghassan Mena CO2 [Moles/Vol] 27.8 mmol/L Normal 21.0-32.0 [facility] Comment on above: Performed By: #### L IPID, T7, TSH, CMP #### [facility] [address] [place] [address] Dr. Ghassan Mena Creatinine [Mass/Vol] 0.70 mg/dL Normal 0.55-1.02 [facility] Comment on above: Performed By: #### L IPID, T7, TSH, CMP #### [facility] [address] [place] [address] Dr. Ghassan Mena EGFR-AF LIBERIAN >60 Normal >=60 [facility] Comment on above: Performed By: #### L IPID, T7, TSH, CMP #### [facility] [address] [place] [address] Dr. Ghassan Mena EGFR-NON AF LIBERIAN >60 Normal >=60 [facility] Comment on above: Performed By: #### L IPID, T7, TSH, CMP #### [facility] [address] [place] [address] [address] Ghassan Mena Globulin (S) [Mass/Vol] 3.8 g/dL Normal [facility] Comment on above: Performed By: #### L IPID, T7, TSH, CMP #### [facility] [address] [place] [address] [address] Ghassan Mena Glucose [Mass/Vol] 109 mg/dL Critically high 74-106 [facility] [facility] Comment on above: Performed By: #### L IPID, T7, TSH, CMP #### [facility] [address] [place] [address] Dr. Ghassan Mena Potassium [Moles/Vol] 4.1 mmol/L Normal 3.5-5.1 [facility] Comment on above: Performed By: #### L IPID, T7, TSH, CMP #### [facility] [address] [place] [address] Dr. Ghassan Mena Protein [Mass/Vol] 7.3 g/dL Normal 6.4-8.2 [facility] Comment on above: Performed By: #### L IPID, T7, TSH, CMP #### [facility] [address] [place] [address] Dr. Ghassan Mena Sodium [Moles/Vol] 140 mmol/L Normal 136-145 [facility] Comment on above: Performed By: #### L IPID, T7, TSH, CMP #### [facility] [address] [place] [address] Dr. Ghassan Mena Urea nitrogen [Mass/Vol] 16.0 mg/dL Normal 7.0-18.0 [facility] Comment on above: Performed By: #### L IPID, T7, TSH, CMP #### [facility] [address] [place] [address] Dr. Ghassan Mena Urea nitrogen/Creatinine [Mass ratio] 22.9 mg/mg Normal [facility] Comment on above: Performed By: #### L IPID, T7, TSH, CMP #### [facility] [address] [place] [address] Dr. Ghassan Mena TSHon 06-15-2022 TSH 2.630 uIU/mL Normal 0.358-3.740 [facility] Comment on above: Performed By: #### L IPID, T7, TSH, CMP #### [facility] [address] [place] [address] Dr. Ghassan Mena INSULINon 07-08-2021 Insulin 6.9 uIU/mL Normal 2.6-24.9 [facility] Comment on above: Performed By: #### I NSULIN #### [facility] [address] [id number] Katherin Dina CBC AUTO DIFFon 07-07-2021 BASO # 0.1 103/ul Normal 0.0-0.1 [facility] Comment on above: Performed By: #### I DOTTIE #### [facility] [address] [id number] Katherin Dina Basophils/100 WBC (Bld) 1.0 % Normal 0.2-2.0 [facility] Comment on above: Performed By: #### I DOTTIE #### [facility] [address] [place] [address] Katherin Dina EO # 0.1 103/ul Normal 0.0-0.7 [facility] Comment on above: Performed By: #### I DOTTIE #### [facility] [address] [place] [address] Katherin Dina Eosinophils/100 WBC (Bld) 1.2 % Normal 0.9-7.0 The [facility] Comment on above: Performed By: #### I DOTTIE #### [facility] [address] [place] [address] Katherin Dina Erythrocyte distribution width (RBC) [Ratio] 13.1 % Normal 11.0-15.0 [facility] Comment on above: Performed By: #### I DOTTIE #### [facility] [address] [place] [address] Katherin Dina Hematocrit (Bld) [Volume fraction] 40.6 % Normal 36.0-48.0 [facility] Comment on above: Performed By: #### I DOTTIE #### [facility] [address] [place] [address] Katherin Dina Hemoglobin (Bld) [Mass/Vol] 13.1 g/dL Normal 12.0-16.0 [facility] Comment on above: Performed By: #### I DOTTIE #### [facility] [address] [place] [address] Katherin Dina IG # 0.01 10e3/ul Normal 0.00-0.03 [facility] Comment on above: Performed By: #### I DOTTIE #### [facility] [address] [id number] Katherin Dina IG % 0.2 % Normal 0.0-0.5 [facility] Comment on above: Performed By: #### I DOTTIE #### [facility] [address] [place], [place] [address] Katherin Dina LYMPH # 1.2 103/ul Normal 1.2-3.8 The [facility] Comment on above: Performed By: #### I DOTTIE #### [facility] [address] [place], [place] [address] Katherin Dina Lymphocytes/100 WBC (Bld) 22.1 % Normal 20.5-60.0 The [facility] Comment on above: Performed By: #### I DOTTIE #### [facility] [address] [place] [address] Katheriniliana rAroyo MANUAL DIFF REQ NO Normal [facility] Comment on above: Performed By: #### I DOTTIE #### [facility] [address] [place], [place] [address] Katherin Dina MCH (RBC) [Entitic mass] 29.1 pg Normal 26.7-34.0 [facility] Comment on above: Performed By: #### I DOTTIE #### [facility] [address] [place] [address] Katherin Dina MCHC (RBC) [Mass/Vol] 32.3 g/dL Normal 29.9-35.2 The [facility] Comment on above: Performed By: #### I DOTTIE #### [facility] [address] [place] [address] Katherin Dina MCV (RBC) [Entitic vol] 90.2 fL Normal 81.0-99.0 [facility] Comment on above: Performed By: #### I DOTTIE #### [facility] [address] [place], [place] [address] Katherin Dina MONO # 0.5 103/ul Normal 0.3-0.8 The [facility] Comment on above: Performed By: #### I DOTTIE #### [facility] [address] [place] [address] Katherin Dina Monocytes/100 WBC (Bld) 9.0 % Normal 1.7-12.0 [facility] Comment on above: Performed By: #### I DOTTIE #### [facility] [address] [place] [address] Katherin Arroyo NEUT # 3.5 103/ul Normal 1.4-6.5 [facility] Comment on above: Performed By: #### I DOTTIE #### [facility] [address] [place] [address] Katherin Arroyo Neutrophils/100 WBC (Bld) 66.5 % Normal 43.0-75.0 The [facility] Comment on above: Performed By: #### I DOTTIE #### [facility] [address] [place] [address] Katherin Arroyo Platelet mean volume (Bld) [Entitic vol] 11.0 fL Normal 9.5-13.5 The [facility] Comment on above: Performed By: #### I DOTTIE #### [facility] [address] [place] [address] Katheriniliana Batistaen PLT 195 103/ul Normal 150-450 [facility] Comment on above: Performed By: #### I DOTTIE #### [facility] [address] [place] [address] Katheriniliana Batistaen RBC 4.50 106/ul Normal 4.20-5.40 [facility] Comment on above: Performed By: #### I DOTTIE #### [facility] [address] [place] [address] Katherin Arroyo WBC 5.2 103/ul Normal 4.0-11.0 The [facility] Comment on above: Performed By: #### I DOTTIE #### [facility] [address] [place], [place] [address] Katherin Arroyo FREE THYROXINE INDEX T7on FTI 3.77 Normal The [facility] Comment on above: Performed By: #### I DOTTIE #### [facility] [address] [place] [address] Katheriniliana Batistaen T3U 34.0 % Normal 23.5-40.5 The [facility] Comment on above: Performed By: #### I DOTTIE #### [facility] [address] [address] Katherin Dina T4 [Mass/Vol] 11.10 ug/dL Critically high 5.53-11.00 [facility] Comment on above: Performed By: #### I DOTTIE #### [facility] [address] [phone] Katherin Dina GLYCOHEMOGLOBIN A1Con 2020 ADA RECOMMENDATION ADA THERAPEUTIC TARGET 6.0 - 7.0 ACTION SUGGESTED > 7.0 Normal [facility] Comment on above: Performed By: #### A 1C #### [facility] [address] [phone] Katherin Dina Glucose [Mass/Vol] 123 mg/dL Normal [facility] Comment on above: Performed By: #### A 1C #### [facility] [address] [place] [address] Katherin Dina HbA1c (Bld) [Mass fraction] 5.9 % Normal <=6.0 [facility] Comment on above: Performed By: #### A 1C #### [facility] [address] [place], [place] [address] Katherin Dina IRONon 07-07-2021 Iron [Mass/Vol] 64.0 ug/dL Normal 37.0-170.0 [facility] Comment on above: Performed By: #### I DOTTIE #### [facility] [address] [place], [place] [address] Katheriniliana Arroyo LIPID PROFILEon 07-07-2021 CHOL-HDL RATIO NORM SEE BELOW Normal [facility] Comment on above: Result Comment: 3.3 - 4.4 LOW RISK 4.4 - 7.1 AVERAGE RISK 7.1 - 11.0 MODERATE RISK >11.0 HIGH RISK Performed By: #### I DOTTIE #### [facility] [address] [place] [address] Katherin Dina Cholesterol [Mass/Vol] 137 mg/dL Normal <=200 [facility] Comment on above: Performed By: #### I DOTTIE #### [facility] [address] [place], [place] [address] Katherin Dina Cholesterol in HDL [Mass/Vol] 52 mg/dL Normal [facility] Comment on above: Performed By: #### I DOTTIE #### [facility] [address] [phone] Katherin Dina Cholesterol in LDL [Mass/Vol] 72.2 mg/dL Normal [facility] Comment on above: Performed By: #### I DOTTIE #### [facility] [address] [phone] Katherin Dina Cholesterol.total/Ch olesterol in HDL [Mass ratio] 2.6 {ratio} Normal [facility] Comment on above: Performed By: #### I DOTTIE #### [facility] [address] [place] [address] Katherin Dina HDL NORMAL > or = 60 mg/dl - LO W CARDIOVASCULAR RISK <40 mg/dl - HIGH CARDIOVASCULAR RISK Normal [facility] Comment on above: Performed By: #### I DOTTIE #### [facility] [address] [address] Katherin Dina LDL CALC NORMAL SEE BELOW Normal [facility] Comment on above: Result Comment: <100 mg/dl OPTIMAL 100 - 129 mg/dl NEAR OR ABOVE OPTIMAL 130 - 159 mg/dl BORDERLINE HIGH 160 - 189 mg/dl HIGH >190 mg/dl VERY HIGH Performed By: #### I DOTTIE #### [facility] [address] [place] [address] Katherin Dina Triglyceride [Mass/Vol] 64 mg/dL Normal <=150 The [facility] Comment on above: Performed By: #### I DOTTIE #### [facility] [address] [address] Katherin Dina VLDL CALC 12.8 mg/dL Normal The [facility] Comment on above: Performed By: #### I DOTTIE #### [facility] [address] [place], [place] [address] Katheriniliana Arroyo PROF 14(COMP METB)on 021 Albumin [Mass/Vol] 3.7 g/dL Normal 3.5-5.0 [facility] Comment on above: Performed By: #### I DOTTIE #### [facility] [address] [place], [place] [address] Katherin Dina Albumin/Globulin [Mass ratio] 0.9 {ratio} Normal [facility] Comment on above: Performed By: #### I DOTTIE #### [facility] [address] [place], [place] [address] Katherin Dina ALP [Catalytic activity/Vol] 85 U/L Normal 38-126 [facility] Comment on above: Performed By: #### I DOTTIE #### [facility] [address] [place], [place] [address] Katherin Dina ALT [Catalytic activity/Vol] 19 U/L Normal 9-52 [facility] Comment on above: Performed By: #### I DOTTIE #### [facility] [address] [place], [place] [address] Katherin Dina Anion gap [Moles/Vol] 10.6 mmol/L Normal [facility] Comment on above: Performed By: #### I DOTTIE #### [facility] [address] [place] [address] Katherin Dina AST [Catalytic activity/Vol] 24 U/L Normal 14-36 [facility] Comment on above: Performed By: #### I DOTTIE #### [facility] [address] [place], [place] [address] Katherin Dina Bilirubin [Mass/Vol] 0.5 mg/dL Normal 0.2-1.3 [facility] Comment on above: Performed By: #### I DOTTIE #### [facility] [address] [place] [address] Katherin Dina Calcium [Mass/Vol] 9.2 mg/dL Normal 8.4-10.2 [facility] Comment on above: Performed By: #### I DOTTIE #### [facility] [address] [place], [place] [address] Katherin Dina Chloride [Moles/Vol] 102 mmol/L Normal 98-107 [facility] Comment on above: Performed By: #### I DOTTIE #### [facility] [address] [place], [place] [address] Katherin Dina CO2 [Moles/Vol] 31.5 mmol/L Critically high 22.0-30.0 The [facility] Comment on above: Performed By: #### I DOTTIE #### [facility] [address] [address] Katherin Dina Creatinine [Mass/Vol] 0.85 mg/dL Normal 0.52-1.04 [facility] Comment on above: Performed By: #### I DOTTIE #### [facility] [address] [address] Katherin Dina EGFR-AF LIBERIAN >60 Normal >=[address] [facility] Comment on above: Performed By: #### I DOTTIE #### [facility] [address] [address] Katherin Dina EGFR-NON AF LIBERIAN >60 Normal >=60 [facility] Comment on above: Performed By: #### I DOTTIE #### [facility] [address] [place] [address] Katherin Dina Globulin (S) [Mass/Vol] 4.0 g/dL Normal [facility] Comment on above: Performed By: #### I DOTTIE #### [facility] [address] [place] [address] Katherin Dina Glucose [Mass/Vol] 99 mg/dL Normal 74-106 [facility] Comment on above: Performed By: #### I DOTTIE #### [facility] [address] [place] [address] Katherin Dina Potassium [Moles/Vol] 4.1 mmol/L Normal 3.4-5.0 [facility] Comment on above: Performed By: #### I DOTTIE #### [facility] [address] [place] [address] Katherin Dina Protein [Mass/Vol] 7.7 g/dL Normal 6.1-8.2 [facility] Comment on above: Performed By: #### I DOTTIE #### [facility] [address] [place] [address] Katherin Dina Sodium [Moles/Vol] 140 mmol/L Normal 137-145 [facility] Comment on above: Performed By: #### I DOTTIE #### [facility] [address] [place], [place] [address] Katherin Arroyo Urea nitrogen [Mass/Vol] 15.0 mg/dL Normal 7.0-17.0 [facility] Comment on above: Performed By: #### I DOTTIE #### [facility] [address] [place], [place] [address] Katherin Arroyo Urea nitrogen/Creatinine [Mass ratio] 17.6 mg/mg Normal [facility] Comment on above: Performed By: #### I DOTTIE #### [facility] [address] [place], [place] [address] Katherin Arroyo TSHon 07-07-2021 TSH 2.729 uIU/mL Normal 0.470-4.680 [facility] Comment on above: Performed By: #### I DOTTIE #### [facility] [address] [place], [place] [address] Katherin Arroyo TSH RANGE SEE BELOW Normal [facility] Comment on above: Result Comment: <0.3 4 UIU/ml HYPERTHYROID 0.34-5.60 UIU/ml EUTHYROID >5.60 UIU/ml HYPOTHYROID Performed By: #### I DOTTIE #### [facility] [address] [place], [place] [address] Katherin Arroyo Vital Signs Date Time Vital Sign Value Performing Clinician [facility] 03-18-2025 15:39-0400 Body mass index (BMI) [Ratio] 38.33 kg/m2 [email or web address] Work Phone: [facility] 03-18-2025 15:39-0400 Body weight 131.77 kg [email or web address] Work Phone: [facility] 03-18-2025 15:39-0400 Diastolic blood pressure 90 mm[Hg] [email or web address] Work Phone: [facility] 03-18-2025 15:39-0400 Systolic blood pressure 150 mm[Hg] [email or web address] Work Phone: [facility] 02-27-2025 10:09-0400 Body mass index (BMI) [Ratio] 37.84 kg/m2 Kurtis José Miguel DO Work Phone: [facility] 02-27-2025 10:09-0400 Body weight 130.09 kg Kurtis José Miguel DO Work Phone: [facility] 02-27-2025 10:09-0400 Diastolic blood pressure 84 mm[Hg] Kurtis José Miguel DO Work Phone: [facility] 02-27-2025 10:09-0400 Systolic blood pressure 124 mm[Hg] Kurtis José Miguel DO Work Phone: [facility] Encounters Encounter Date Encounter Type Care Provider Facility Start: 04-11-2025 End: 04-11-2025 Clinisync Result Encounter Kurtis José Miguel DO Work Phone: [facility] Unsolicited Start: 04-11-2025 End: 04-11-2025 Clinisync Result Encounter Kurtis José Miguel DO Work Phone: [facility] Unsolicited Start: 04-01-2025 End: 04-01-2025 Clinisync Result Encounter Kurtis José Miguel DO Work Phone: [facility] Unsolicited Start: 04-01-2025 End: 04-01-2025 Clinisync Result Encounter Kurtis José Miguel DO Work Phone: [facility] Unsolicited Start: 03-18-2025 End: 03-18-2025 ambulatory KURTIS JOSÉ MIGUEL Not Available Start: 03-18-2025 End: 03-18-2025 Office outpatient visit 15 minutes Kurtis José Miguel DO Work Phone: [facility] Comment on above: Pre-op examination; Postmenopausal bleeding; Thickened endometrium Start: 03-18-2025 End: 03-18-2025 Preprocedural examination done Kurtis José Miguel DO Work Phone: [facility] Start: 03-18-2025 End: 03-18-2025 ambulatory KURTIS JOSÉ MIGUEL Not Available Start: 02-27-2025 End: 02-27-2025 Bamboo flowsheet Kurtis José Miguel DO Work Phone: [facility] Start: 02-27-2025 End: 02-27-2025 Bamboo flowsheet Kurtis José Miguel DO Work Phone: [facility] Start: 02-27-2025 End: 02-27-2025 Office outpatient visit 15 minutes Kurtis José Miguel DO Work Phone: [facility] Comment on above: Postmenopausal bleed ing Start: 02-27-2025 End: 02-27-2025 ambulatory KURTIS JOSÉ MIGUEL Not Available Start: 07-08-2024 End: 07-08-2024 Refill Lefty Echols DO Work Phone: [facility] Comment on above: Age-related nuclear cataract of both eyes Start: 05-21-2024 End: 05-21-2024 ambulatory LEFTY ECHOLS Not Available Start: 06-19-2022 Encounter for genera l adult medical examination without abnormal findings DR RADHA LENTZ [facility] Start: 06-15-2022 End: 06-16-[address] RADHA LENTZ Facility:[facility] Start: 06-15-2022 End: 06-16-2022 Encounter for general adult medical examination without abnormal findings DR RADHA LENTZ Facility:[facility] Start: 07-07-2021 End: 07-08-[address] RADHA LENTZ Facility:[facility] Procedures Date Procedure Procedure Detail Performing Clinician Start: 04-11-2025 ALL CBC WITH AUTO DIFF Kurtis José Miguel DO Work Phone: Start: 04-01-2025 ALL BASIC METABOLIC PANEL Kurtis José Miguel DO Work Phone: Start: 04-01-2025 ECG 12-LEAD Kurtis Fazi o DO Work Phone: Plan of Treatment Date Care Activity Detail Author Start: 07-14-2025 Influenza vaccination Influenz a Vaccine (Season Ended) [facility] Start: 04-21-2025 End: 04-21-2025 Patient encounter procedure 04/21/2025 1:20 PM EDT Office [address] [facility] [address] [address] Bisi Bains PA [address] [place], [place] [id number] [facility] Start: 03-18-2025 End: 03-18-2025 Patient encounter procedure 03/18/2025 2:40 PM EDT Consult [facility] [address] [place] [address] Kurtis Valdez, [address] [place] [address] [facility] Start: 03-18-2025 End: 03-18-2025 Professional / ancillary services management 03/18/2025 2:00 PM EDT Ancillary Procedure [facility] [address] [place] [address] [facility] Start: 02-27-2025 End: 08-29-2025 US Pelvis US Pelvis w/ TV Imaging Routine Postmenopausal bleeding Expected: 02/27/2025, Expires: 08/29/2025 [facility] Work Phone: Comment on above: Expected: 02/27/2025 , Expires: 08/29/2025 Start: 02-27-2025 End: 02-27-2025 Patient encounter procedure 02/27/2025 10:00 AM EDT Office Visit [facility] [address] [place] [address] Kurtis Valdez, [address] [place] [address] Arrived [facility] Comment on above: Arrived Start: 07-22-2024 End: 07-22-2024 Patient encounter procedure 07/22/2024 7:45 AM EDT Procedure Visit [facility] Lefty Echols, DO [address] [place] [address] [facility] Start: 07-14-2024 Influenza vaccination Influenza Vacc ine (#1) [facility] Start: 2023 Pneumococcal Vaccine : 65+ Years (1 of 1 - PCV) Pneumococcal Vaccine: 65+ Years (1 of 1 - PCV) [facility] Start: 2008 Pneumococcal Vaccine : 65+ Years (1 of 1 - PCV) Pneumococcal Vaccine: 65+ Years (1 of 1 - PCV) [facility] Start: 1998 Screening for malign ant neoplasm of breast Mammogram [facility] Start: 1958 Screening for malign ant neoplasm of colon [facility] Immunizations Immunization Date Immunization Notes Care Provider Faisal hill 10-13-2017 influenza virus vacc ine, unspecified formulation Lefty Echols DO Work Phone: [facility] Payers Date Payer Category Payer Private Health Insurance [facility] [id number] 2023 Unknown [id number] 2023 Medicare MEDICARE [id number] 2023 Medicare [id number] 1958 Unknown [id number] 1958 Unknown [id number] 1958 Unknown [id number] 1958 Unknown [id number] 1958 Unknown [id number] 1958 Unknown [id number] .[id number] Unknown [id number] Social History Date Type Detail Facility Start: 05-21-2024 Tobacco smoking stat [facility] Ex-smoker [facility] Work Phone: History of tobacco use Current smoker [facility] History of tobacco use Cigarette Smoker [facility] Start: 05-21-2024 Tobacco use and exposure Smokeless tobacco non-user [facility] Start: 05-21-2024 Alcoholic beverage intake Lifetime non-drinker (finding) [facility] Start: 07-20-2023 End: 05-21-2024 History of Social function [facility] Start: 07-20-2023 End: 05-21-2024 Tobacco use panel [facility] Start: 1960 Sex assigned at Not on file [facility] History of Present illness Narrative 03-18-2025 Rubi Cabrera LPN - 03/18/2025 2:40 PM EDT Note Date & Type Note Facility 03-18-2025 History of Presen t illness Narrative Reason for Appointment: Patient ID: Delmis Mtz is a 64 y.o. female who presents for Pre-op Visit Patient presents today for Pre Op appointment. Patient is scheduled to undergo D&C Hysteroscopy, possible Myosure on 04/11/[address] Valdez at [facility]. MEDICATIONS Current Outpatient Medications Medication Instructions albuterol [...] nursing note reviewed. Exam conducted with a pari mutual ticket checker present. Vitals: Estimated body mass index is [...] reviewed, and patient is to proceed to [facility] OR. Follow Up: Patient is to follow [...] illness Narrative Reason for Appointment: Patient ID: Delmis Mtz is a 64 y.o. female who presents [...] nursing note reviewed. Exam conducted with a par[employer] ticket checker present. Vitals: Estimated body mass index is [...] Kurtis Valdez DO documented in this encounter [facility] Evaluation note Note Date & Type [...] and content) DATE CREATED AUTHOR 06/19/2022 [facility] DATE CREATED AUTHOR 'S ORGANIZ ATION 03/21/2025 [facility] [place] [facility] EPIC Reason for Visit (unrecogniz ed section and content) Reason Comments Med Refill Reason Comments PMB Reason Comments Pre-op Visit Care Teams (unrecognized sec tion and content) Manager Search Relationship Specialty Start Date End Date Radha Lentz MD [address] [place] [address] PCP - General Family Medicine 07/04/23 Berta Lovelace MD [facility] [place] [address] Referring Physician Optometry 05/21/24 Manager Search Relationship Specialty Start Date End Date Radha Lentz MD [address] [place] [address] PCP - General Family Medicine 07/04/23 Berta Rivero OD [facility] [place] [address] Referring Physician Optometry 05/21/24 Manager Search Relationship Specialty Start Date End Date Radha Lentz MD [address] [place] [address] PCP - General Family Medicine 07/04/23 Berta Rivero OD [address] [place] [address] Referring Physician Optometry 05/21/24 Manager Search Relationship Specialty Start Date End Date Radha Lentz MD [address] [place] [address] PCP - General Family Medicine 07/04/23 Berta Rivero OD [address] [place] [address] Referring Physician Optometry 05/21/24 FOR RECORDS PERTAINING [...] BE BASED ON THE PRIMARY CLINICAL RECORDS. [facility]. provides no warranty or guarantee of the accuracy or completeness of information in this document.
[2025-04-11 09:36] VITALS: BP 145/86; PULSE 64; TEMP 36.1; O2SAT 97; BMI 39.7
[2025-04-11] MEDS: LACTATED RINGER'S SOLUTION 1,000 ML 50 ML IV (09:59)
--- NOTE | 2025-04-11 11:32 | P.ON_ITS ---
Brief Operative Note Date of procedure: 04/11/25 Pre-op diagnosis general: pmb Post-op diagnosis: other (uterine polyp, ) Procedure: NAME OF PROCEDURE: [ D&c hysteroscopy with myosure] PROCEDURE: The patient was taken back to the Operating Room where she was prepped and draped in normal sterile fashion after being placed under general anesthesia without difficulty. She was also placed in the dorsal lithotomy position. A we ighted speculum was placed in the patient?s vagina. The anterior lip of the cervix was identified and grasped with a single tooth tenaculum. The patient?s uterus was then sounded roughly to [? 8] cm. The patient was then gently dilated using Hegar dilators. The hysteroscope was passed through the patient?s cervix into the uterus. Both ostia were identified. fluffy appearing endometrium. No gross evidence of malignancy, no gross evidence of polyps or fibroids. The myosure apparatus was placed through the scope, The myosure was engaged and endometrial curretting were removed along with endometrial polyp, The hysteroscope was then removed from the uterus. The endometrial curettings were sent out to pathology. The single tooth tenaculum was then removed from the patient's anterior lip of the cervix where excellent hemostasis was noted. All instruments were removed from the patient?s vagina. The patient tolerated the procedure well. Sponge, lap and needle counts were correct times two. The patient was taken to the Recovery Room in stable condition.Room in stable condition. Anesthesia: MAC Surgeon: Yovani Valdez Estimated blood loss (mL): 5 Pathology: other (endometrial polyp and currettings) Condition: stable Disposition: PACU Urinary Catheter Management Urinary Catheter Management Straight: Cath placed during this visit: no
[2025-04-11 11:40] VITALS: BP 122/67; PULSE 61; TEMP 36.2; O2SAT 94
[2025-04-11 11:55] VITALS: BP 102/53; PULSE 62; O2SAT 95
[2025-04-11 12:10] VITALS: BP 120/66; PULSE 55; O2SAT 98
[2025-04-11 12:25] VITALS: BP 105/62; PULSE 50; O2SAT 98
--- NOTE | 2025-04-11 12:40 | PC.NURSE ---
1225 PATIENT UP AMBULATING TO BATHROOM TO URINATE , GOT DRESSED TO BE DISCHARGED. DENIES PAIN. S CONDITION AT DISCHARGE.
== END 2025-04-11 12:33 | disposition home or self-care (01) ==
PROVIDERS: PCP Family Medicine; Visit Provider Obstetrics & Gynecology
PROC: (CPT 58558; principal; 2025-04-11 10:05)
DX: C54.1 Malignant neoplasm of endometrium (principal); N95.0 Postmenopausal bleeding; I10 Essential (primary) hypertension; N84.0 Polyp of corpus uteri; Z87.891 Personal history of nicotine dependence; E66.01 Morbid (severe) obesity due to excess calories; Z68.39 Body mass index [BMI] 39.0-39.9, adult; E78.5 Hyperlipidemia, unspecified; J45.909 Unspecified asthma, uncomplicated; K21.9 Gastro-esophageal reflux disease without esophagitis
CPT/HCPCS: 58558; 36415; 85025; 88305; 88341; 88342; J1885; J2250; J2405; J2704; J3010

== ENCOUNTER 2025-05-02 08:35 | Outpatient (OUT) | payer MEDICARE, OTHER, SELFPAY ==
--- OUTSIDE RECORDS SUMMARY | 2024-11-01 06:15 | XMS_ITS ---
Author Organization The [facility] in [place] Address [address] [place] [address] Care Team Providers Care Client Retention Specialist Name Role Phone Femi Lentz Primary Care Provider Allergies Allergen (clinical drug ingredient) Drug/Non Drug Allergy documented on EMR Reaction Allergy Type Onset Date Status sulfamethoxazole / trimethoprim Bactrim unknown Drug Allergy Active Levaquin unknown Drug Allergy Active REASON FOR VISIT Presents to office alone for c/o coughing up yellow phlegm and sore throat x2 days Medications Medication SIG (Take, Route, Frequency, Duration) Notes Start Date End Date Status Vitamin D3 125 MCG (5000 UT) TAKE 1 CAPSULE BY MOUTH ONCE A DAY DIRECTED for 90 Active Simvastatin 20 MG TAKE 1 TABLET BY YASMIN TH EVERY DAY IN THE EVENING FOR 90 DAYS for 90 Active Omeprazole 40 MG TAKE 1 CAPSULE BY MO UTH 30 MINUTES BEFORE MORNING MEAL ONCE A DAY for 90 Active Potassium Chloride ER 10 MEQ TAKE 1 TABLET BY MOUTH TWICE A DAY for 90 days Active Ibuprofen 600 MG TAKE 1 TABLET BY YASIMN TH 3 TIMES A DAY WITH FOOD OR MILK NEEDED for 90 Active Furosemide 40 MG TAKE 1 TABLET BY YASMIN TH EVERY DAY for 90 Active Coreg 25 MG 1 tablet with food O rally Twice a day for 90 days 04/13/2023 Active Losartan Potassium 100 MG TAKE 1 TABLET BY MOUTH EVERY DAY for 90 Active Amoxicillin-Pot Clavulanate 875-125 MG 1 tablet Orally every 12 hrs for 10 days 11/01/2024 Active amLODIPine Besylate 5 MG TAKE 1 TABLET B Y MOUTH EVERY DAY FOR 30 DAYS for 90 Active Albuterol Sulfate (2.5 MG/3ML) 0.083% 3 mL as needed Inhalation every 6 hrs DX: J43.9 for 30 days Active Social History Tobacco Use: Social History Observation Description Date Details (start date - stop date) Former Smoker 11/13/1984 - 11/13/2008 Tobacco Control (Standard) Question Answer Notes Tobacco use: Former smoker When did you start smoking? 11/13/1984 When did you stop smoking? 11/13/2008 How long has it been since y ou last smoked? Greater than 10 years Additional Findings: Tobacco non-user Ex-heavy c igarette smoker (20-30/day) Vital Signs Weight 294.6 lbs 11/01/2024 Height 71 in 11/01/2024 Blood pressure systolic 140 mm Hg 11/01/20 Blood pressure diastolic 82 mm Hg 024 Temperature 97.3 degrees Fahrenheit 11/01/20 BMI 41.08 kg/m2 11/01/2024 Procedures Procedure Date Ordered Date Performed Result Body Sit e Cerumen Removal - performed 11/01/2024 11/01/2024 N/A Encounters Encounter Location Date Provider Diagnosis [facility] [address] [place] [address] 11/01/2024 Femi Hoy Acute bronchitis, unspecified organism J20.9 ; Cerumen impaction H61.20 and Bilateral hearing loss due to cerumen impaction H61.23 Assessments Encounter Date Diagnosis (ICD Code) Assessment Notes Treatment Notes Treatment Clinical Notes Section Notes 11/01/2024 Acute bronchitis, unspecified organism (ICD-10 - J20.9) Rest and drink more liquids, especially water. You may use a humidifier or vaporizer to help keep the drainage moist. Deox-fde-gpjkozh Nasal Saline may help the stuffy and runny nose. Use Ibuprofen and or Tylenol as needed for fever, chills, body aches or pain. Children 5 years old should not be given mcnk-gnj-kntyicw cough and cold medications such as guaifenesin and dextromethorphan. If you're over age 5, you may try tkvt-ucu-eldddsy cold medications such as guaifenesin and dextromethorphan, or multi-symptom cold reliever such as Dayquil to help reduce the symptoms. Antibiotics have been prescribed. You should take these until completed and follow the directions. Antibiotics can sometimes cause upset stomach, and in rare cases, serious allergic reactions or serious gastrointestinal problems. If you start having severe abdominal pain, severe vomiting, or bloody diarrhea, you should be reevaluated by your physician or urgent care immediately. Follow up with your Primary Care Provider or return to clinic if symptoms do not improve within 3-5 days. If you develop severe symptoms such as shortness of breath, repeated vomiting, coughing up blood, or chest pain you should go to the emergency room or call 911 11/01/2024 Cerumen impaction (ICD-10 - H61.20) 11/01/2024 Bilateral hearing loss due to cerumen impaction (ICD-10 - H61.23) Plan Of Treatment Medication Medication Name Sig Start Date Stop Date Notes Amoxicillin-Pot Clavulanate 875-125 MG 1 tablet Orally every 12 hrs for 10 days 11/01/2024 Treatment Notes Assessment Notes Acute bronchitis, unspecified organism R est and drink more liquids, especially water. You may use a humidifier or vaporizer to help keep the drainage moist. Jpqe-qae-woaokjd Nasal Saline may help the stuffy and runny nose. Use Ibuprofen and or Tylenol as needed for fever, chills, body aches or pain. Children 5 years old should not be given acdb-sqp-ejokvdg cough and cold medications such as guaifenesin and dextromethorphan. If you're over age 5, you may try fvxr-gjh-ptaxmnc cold medications such as guaifenesin and dextromethorphan, or multi-symptom cold reliever such as Dayquil to help reduce the symptoms. Antibiotics have been prescribed. You should take these until completed and follow the directions. Antibiotics can sometimes cause upset stomach, and in rare cases, serious allergic reactions or serious gastrointestinal problems. If you start having severe abdominal pain, severe vomiting, or bloody diarrhea, you should be reevaluated by your physician or urgent care immediately. Follow up with your Primary Care Provider or return to clinic if symptoms do not improve within 3-5 days. If you develop severe symptoms such as shortness of breath, repeated vomiting, coughing up blood, or chest pain you should go to the emergency room or call 911 Pending Test Test Name Order Date Cerumen Removal - performed 11/01/2024 Next Appt Details Follow Up: 3-5 days if not i mproving, Reason: Progress Notes * Naz JUAN MDOB:[birth year] (64 yo F)Acc No.[id number]:11/01/2024 Progress Note Patient: Naz PATEL Provider: Jovita Lentz ([facility])MD :1960 A ge:64 Y S ex:Female Date:11/01/2024 Address:[address] [place] [address] [address], [place], [id number] Check In:09:57 AM ESTCheck O ut:11:12 AM EST Subjective: * Chief Complaints: * P resents to office alone for c/o coughing up yellow phlegm and sore throat x2 days * HPI: B ronchitis: The patient complains of symptoms of bronchitis. The symptoms have been present for 1-2 days. The symptoms are moderate. The patient has not been exposed to sick contacts. Symptomatic treatment has included OTC medication. Associated symptoms include nasal congestion, postnasal drainage, congested ears, cough, fever, chills, body aches. * ROS: E NT: Ear pain d enies. H oarseness d enies. ? C ardiovascular: Edema d enies. P alpitations d enies. ? R espiratory: Comments S ee HPI for details. G astrointestinal: Abdominal pain d enies. D iarrhea d enies. N ausea d enies. S kin: Rash d enies. * Active Problem List R07.9 Chest pain Modified On:04/13/2023U Status:confirmed M19.90 Osteoarthritis Modified On:04/13/2023 Status:confirmed K21.9 GERD (gastroesophage al reflux disease) Modified On:04/13/2023U Status:confirmed R06.09 Dyspnea on exertion Modified On:04/13/2023 Status:confirmed M25.579 Ankle pain Modified On:05/25/2023U Status:confirmed Z00.00 Well adult Modified On:04/13/2023U Status:confirmed J34.89 Nasal obstruction Modified On:04/13/2023U Status:confirmed R60.0 Edema of both legs Modified On:04/13/2023 Status:confirmed J45.909 Asthmatic bronchitis Modified On:04/13/2023 Status:confirmed J43.9 Emphysema Modified On:04/13/2023 Status:confirmed I10 Essential Hypertensi on Modified On:04/13/2023 Status:confirmed F17.200 Tobacco dependence w ith current use Modified On:04/13/2023 Status:confirmed I10 Essential (primary) hypertension Modified On:03/06/2023 Status:confirmed S86.219A Strain of muscle(s) and tendon(s) of anterior muscle group at lower leg level, unspecified leg, initial encounter Modified On:07/13/2023 Status:confirmed S93.499A Sprain of other liga ment of unspecified ankle, initial encounter Modified On:07/13/2023 Status:confirmed * Medical History: * Surgical History: c ataract OU * Hospitalization/Major Diagno stic Procedure: * Family History: F ather: , Prostate Cancer, diagnosed with Other malignant neoplasm of unspecified site, Chronic kidney disease, unspecified. M other: , diagnosed with Diabetes mellitus without mention of complication, type II or unspecified type, not stated as uncontrolled, Unspecified heart disease. B rother(s): Prostate Cancer, diagnosed with Other malignant neoplasm of unspecified site, Diabetes mellitus without mention of complication, type II or unspecified type, not stated as uncontrolled. S ister(s): multiple sclerosis. 8 brother(s) , 3 sister(s) . . * Social History: T obacco Use: T obacco Control (Standard) T obacco use: F ormer smoker W hen did you start smoking? 0 11/13/1984 W hen did you stop smoking? 0 11/13/2008 H ow long has it been since you last smoked??Greater than 10 years A dditional Findings: Tobacco non-user E x-heavy cigarette smoker (20-30/day) * Medications: T akingAlbuterol Sulfate (2.5 MG/3ML) 0.083% Nebulization Solution 3 mL as needed Inhalation every 6 hrs DX: J43.9 amLODIPine Besylate 5 MG Tablet TAKE 1 TABLET BY MOUTH EVERY DAY FOR 30 DAYS Coreg(Carvedilol) 25 MG Tablet 1 tablet with food Orally Twice a day Furosemide 40 MG Tablet TAKE 1 TABLET BY MOUTH EVERY DAY Ibuprofen 600 MG Tablet TAKE 1 TABLET BY MOUTH 3 TIMES A DAY WITH FOOD OR MILK NEEDED Losartan Potassium 100 MG Tablet TAKE 1 TABLET BY MOUTH EVERY DAY Omeprazole 40 MG Capsule Delayed Release TAKE 1 CAPSULE BY MOUTH 30 MINUTES BEFORE MORNING MEAL ONCE A DAY Potassium Chloride ER 10 MEQ Tablet Extended Release TAKE 1 TABLET BY MOUTH TWICE A DAY Simvastatin 20 MG Tablet TAKE 1 TABLET BY MOUTH EVERY DAY IN THE EVENING FOR 90 DAYS Vitamin D3 125 MCG (5000 UT) Capsule TAKE 1 CAPSULE BY MOUTH ONCE A DAY DIRECTED Taking Albuterol Sulfate (2.5 MG/3ML) 0.083% Nebulization Solution 3 mL as needed Inhalation every 6 hrs DX: J43.9 Taking amLODIPine Besylate 5 MG Tablet TAKE 1 TABLET BY MOUTH EVERY DAY FOR 30 DAYS Taking Coreg(Carvedilol) 25 MG Tablet 1 tablet with food Orally Twice a day Taking Furosemide 40 MG Tablet TAKE 1 TABLET BY MOUTH EVERY DAY Taking Ibuprofen 600 MG Tablet TAKE 1 TABLET BY MOUTH 3 TIMES A DAY WITH FOOD OR MILK NEEDED Taking Losartan Potassium 100 MG Tablet TAKE 1 TABLET BY MOUTH EVERY DAY Taking Omeprazole 40 MG Capsule Delayed Release TAKE 1 CAPSULE BY MOUTH 30 MINUTES BEFORE MORNING MEAL ONCE A DAY Taking Potassium Chloride ER 10 MEQ Tablet Extended Release TAKE 1 TABLET BY MOUTH TWICE A DAY Taking Simvastatin 20 MG Tablet TAKE 1 TABLET BY MOUTH EVERY DAY IN THE EVENING FOR 90 DAYS Taking Vitamin D3 125 MCG (5000 UT) Capsule TAKE 1 CAPSULE BY MOUTH ONCE A DAY DIRECTED DiscontinuedCephalexin 500 MG Tablet 2 tabs Orally bid Cephalexin 500 MG Tablet 2 tabs Orally bid Doxycycline Monohydrate 100 MG Capsule 1 capsule Orally bid Pyridium(Phenazopyridine HCl) 200 MG Tablet 1 tablet after meals Orally Three times a day Medication List reviewed and reconciled with the patientDiscontinued Cephalexin 500 MG Tablet 2 tabs Orally bid Discontinued Cephalexin 500 MG Tablet 2 tabs Orally bid Discontinued Doxycycline Monohydrate 100 MG Capsule 1 capsule Orally bid Discontinued Pyridium(Phenazopyridine HCl) 200 MG Tablet 1 tablet after meals Orally Three times a day Medication List reviewed and reconciled with the patient * Allergies: B actrim: unknown - AllergyLevaquin: unknown - Allergyno[Allergies Verified] Objective: * Vitals: W t:294.6lbs, Ht: 71 in, BP:140/82mm Hg, Temp:97.3F, BMI:41.08Index, Ht-cm: 180.34 cm, Wt-k.63 kg. * Examination: G eneral Examination: GENERAL APPEARANCE: in no acute distress. EYES: EOMI. EARS: auditory canal clear, middle ear effusion noted.? NOSE: clear discharge, turbinates pale and swollen. ORAL CAVITY: mucosa moist. THROAT: no erythema, post-nasal drainage noted. NECK: neck supple, no thyromegaly. LYMPH NODES: n o cervical adenopathy. LUNGS: unlabored, clear to auscultation bilaterally. CARDIO: n o murmurs, regular rate and rhythm. ABDOMEN: bowel sounds present, no organomegaly . ? Assessment: * Assessment: 1. A cute bronchitis, unspecified organism - J20.9 (Primary) 2 . C erumen impaction - H61.20 3 . B ilateral hearing loss due to cerumen impaction - H61.23? Plan: * Treatment: 2. C erumen impaction P rocedure: Cerumen Removal - performed (Performed Date - 11/01/2024) * Procedure Codes: 6 9210 REMOVE IMPACTED CERUMEN * Preventive Medicine: Screenings/Counseling: B ME ACTION PLAN Above Normal BMI Follow-up D ietary management education, guidance, and counseling See treatment section of progress note for complete details of management plan. F ALL RISK SCREENING Fall Risk Assessment: N o falls in the past year * Follow Up: 3 -5 days if not improving * * Sign off status: Completed Visit Status: C HK (Check Out) true * Provider: Jovita Lentz ([facility])MD Date: 1 01/02/2024 Generated for Printi ng/Fageraldg/eTransmitting on: 0 05/02/2025 08:38 AM EDT History and Physical Notes * Examination Category Sub-Category Detail Notes Category Not es General Examination GENERAL APPEARANCE: in no acute di stress EYES: EOMI EARS: auditory canal clear , middle ear effusion noted NOSE: clear discharge, tur binates pale and swollen THROAT: no erythema, post-na koki drainage noted NECK: neck supple, no thyr omegaly CARDIO: no murmurs, regular rate and rhythm LUNGS: unlabored, clear to auscultation bilaterally ABDOMEN: bowel sounds present , no organomegaly LYMPH NODES: no cervical adenopat hy ORAL CAVITY: mucosa moist
--- OUTSIDE RECORDS SUMMARY | 2024-12-23 04:05 | XMS_ITS ---
Author Organization The [facility] in [place] Address [address] [place] [address] Care Team Providers Care Speed Reading Teacher Name Role Phone Femi Lentz Primary Care Provider REASON FOR VISIT refill Medications Medication SIG (Take, Route, Fr equency, Duration) Notes Start Date End Date Status Ibuprofen 600 MG TAKE 1 TABLET BY YASMIN TH 3 TIMES A DAY WITH FOOD OR MILK NEEDED for 90 Active Encounters Encounter Location Date Provider Diagnosis [facility] [address] [facility] [place] [address] 12/23/2024 Femi Lentz Plan Of Treatment Medication Medication Name Sig Start Date Stop Date Notes Ibuprofen 600 MG TAKE 1 TABLET BY YASMIN TH 3 TIMES A DAY WITH FOOD OR MILK NEEDED for 90 Progress Notes * Naz JUAN MDOB:[birth year] (64 yo F)Acc No.[id number]:12/23/2024 Patient: Cliff Naz SCHUMACHER :1960 A ge:64 Y S ex:Female Address:[address] [place] [address] [address], [place] [address] * Refills Refill Ibuprofen Tablet, 600 MG, 270 Tablet, TAKE 1 TABLET BY MOUTH 3 TIMES A DAY WITH FOOD OR MILK NEEDED, 90, Refills=3 * true * Date: Generated for Printi ng/Faxing/eTransmitting on: 0 05/02/2025 08:38 AM EDT
--- OUTSIDE RECORDS SUMMARY | 2025-02-12 04:54 | XMS_ITS ---
Author Organization The [facility] in [place] Address [address] [place] [address] Care Team Providers Care Leasing Representative Name Role Phone Femi Lentz Primary Care Provider [phone] REASON FOR VISIT sick Medications Medication SIG (Take, Route, Fr equency, Duration) Notes Start Date End Date Status Azithromycin 250 MG 2 tabs today then 1 tab Orally daily for 5 days 02/12/2025 Active Encounters Encounter Location Date Provider Diagnosis [facility] [address] [place] [address] 02/12/2025 Femi Lentz Acute bronchitis, unspecified organism J20.9 Assessments Encounter Date Diagnosis (ICD Code) Assessment Notes Treatment Notes Treatment Clinical Notes Section Notes 02/12/2025 Acute bronchitis, unspecified organism (ICD-10 - J20.9) Plan Of Treatment Medication Medication Name Sig Start Date Stop Date Notes Azithromycin 250 MG 2 tabs today then 1 tab Orally daily for 5 days 02/12/2025 Amoxicillin-Pot Clavulanate 875-125 MG 1 tablet Orally every 12 hrs 11/01/2024 Progress Notes * Naz JUAN MDOB:[birth year] (64 yo F)Acc No.[id number]:02/12/2025 Patient: Cliff Naz SCHUMACHER :1960 A ge:64 Y S ex:Female Address:[address] [place] [address] [address], [place] [address] * Refills Start Azithromycin Tablet, 250 MG, Orally, 6, 2 tabs today then 1 tab, daily, 5 days, Refills=0 Stop Amoxicillin-Pot Clavulanate Tablet, 875-125 MG, Orally, 1 tablet, every 12 hrs * true * Date: Generated for Rosaline chilel/Dayna/Kateitting on: 0 05/02/2025 08:39 AM EDT
--- OUTSIDE RECORDS SUMMARY | 2025-04-21 13:20 | XMS_ITS | Encounter Summary ---
Author Organization [facility] Address [address] [place] [address] Care Team Providers Care Pulvi Mixer Operator Name Role Phone Andres Lentz MD Primary Care Provider [phone] Mat, Berta OD Unavailable Reason for Visit * Reason Comments Post-op Visit Encounter Details Date Type Department Care Team (Late st Contact Info) Description 04/21/2025 1:20 PM EDT Office Visit [facility] [address] [address] Bisi Bains PA [address] [facility] [address] [place], [facility] Postoperative examination Social History Tobacco Use Types Packs/Day Years Used Date Smoking Tobacco: Former Cigarettes Smokeless Tobacco: Never Alcohol Use Standard Drinks/Week Comments Never 0 (1 standard drink = 0.6 oz pur e alcohol) Comments Unknown Sex and Gender Information Value Date Recorded Sex Assigned at Not on file Legal Sex Female 4:55 PM EDT Gender Identity Not on file Sexual Orientation Not on file documented as of this encounter Last Filed Vital Signs Vital Sign Reading Time Taken Comments Blood Pressure 122/76 04/21/2025 1:23 PM EDT Pulse - - Temperature - - Respiratory Rate - - Oxygen Saturation - - Inhaled Oxygen Concentration - - Weight 129 kg (285 lb) 04/21/2025 1:23 PM EDT Height - - Body Mass Index 37.6 07/04/2023 4:06 PM EDT documented in this encounter Progress Notes * CHACHA Alcantara - 04/21/2025 1:20 PM EDT Reason for Appointment: Patient ID: Naz Juan is a 65 y.o. female who presents for Post-op Visit Patient presents today for 1 Week Post Op Follow Up appointment. MEDICATIONS Current Outpatient Medications Medication Instructions albuterol (2.5 MG/3ML) 0.083% nebulizer solution Every 6 hours PRN amLODIPine (Norvasc) 5 MG tablet TAKE 1 TABLET BY MOUTH EVERY DAY FOR 30 DAYS carvedilol (Coreg) 25 MG tablet TAKE 1 TABLET BY MOUTH TWICE A DAY WITH FOOD FOR 90 DAYS [facility] D3 125 MCG (5000 UT) capsule TAKE 1 CAPSULE BY MOUTH ONCE A DAY DIRECTED esomeprazole (NEXIUM) 20 mg, Daily before breakfast furosemide (Lasix) 40 MG tablet TAKE 1 TABLET BY MOUTH EVERY DAY FOR 90 DAYS hyoscyamine (Levsin) 0.125 MG SL tablet DISSOLVE 1 TABLET UNDER TONGUE BEFORE MEALS AND AT BEDTIME NEEDED FOR ABDOMINAL PAIN ibuprofen 600 MG tablet Every 8 hours losartan (Cozaar) 100 MG tablet Every 24 hours potassium chloride CR (Klor-Con) 10 MEQ ER tablet 10 mEq, 2 times daily simvastatin (ZOCOR) 20 mg, Daily ALLERGIES Allergies Allergen Reactions Penicillins PROBLEMS [...] HISTORY Past Surgical History: Procedure Laterality Date DILATION AND CURETTAGE OF UTERUS 04/11/2025 D&C Hysteroscopy w/myosure TONSILLECTOMY REVIEW OF SYSTEMS Review of Systems: Review of Systems Constitutional: Negative. HENT: Negative. Eyes: Negative. Respiratory: Negative. Cardiovascular: Negative. Gastrointestinal: Negative. Genitourinary: Negative. Musculoskeletal: Negative. Skin: Negative. Neurological: Negative. All other systems reviewed and are negative. Hematological: Negative. Endocrine: Negative. Allergic/Immunologic: Negative. OBJECTIVE Objective: Physical Exam Constitutional: Appearance: Normal appearance. She is normal weight. HENT: Head: Normocephalic. Nose: Nose normal. Mouth/Throat: Mouth: Mucous membranes are moist. Cardiovascular: Rate and Rhythm: Normal rate. Pulses: Normal pulses. Pulmonary: Effort: Pulmonary effort is normal. Breath sounds: Normal breath sounds. Abdominal: General: Bowel sounds are normal. Palpations: Abdomen is soft. Musculoskeletal: General: Normal range of motion. Cervical back: Normal range of motion. Neurological: General: No focal deficit present. Mental Status: She is alert and oriented to person, place, and time. Skin: General: Skin is warm and dry. Psychiatric: Mood and Affect: Mood normal. Behavior: Behavior normal. Thought Content: Thought content normal. Judgment: Judgment normal. Vitals and nursing note reviewed. Exam conducted with a food assembler kitchen present. Vitals: Estimated body mass index is 37.6 kg/m?? as calculated from the following: Height as of 07/04/23: 6' 1 . Weight as of this encounter: 285 lb. BP: 122/76 No LMP recorded. ASSESSMENT & PLAN ICD-10-CM 1. Postoperative examination Z09 Post Op Follow Up: Patient presents today for a postop follow up after having a D&C Hysteroscopy performed at [facility] with Dr. Valdez. Pathology results was reviewed with the patient in great detail and all restrictions have been lifted. Patient has referral appointment scheduled for DR Bautista on 04/30/25, due to adenocarncima of the endometrium. Follow Up: Patient is to return to the office for annual exam unless needed otherwise. Documented by CHACHA Alcantara on behalf of: CHACHA Alcantara documented in this encounter Plan of Treatment Not on file documented as of this encounter Visit Diagnoses Diagnosis Postoperative examination Follow-up examination, following unspecified surgery documented in this encounter Care Teams Pulvi Mixer Operator Relationship Specialty Start Date End Date Andres Lentz MD [address] [place] [address] PCP - General Family Medicine 07/04/23 Berta Rivero OD [address] [place] [address] Referring Physician Optometry 05/21/24 documented as of this encounter
--- OUTSIDE RECORDS SUMMARY | 2025-04-30 15:00 | XMS_ITS | Encounter Summary ---
[facility] Address [id number] [address] [place] [address] Care Team Providers Care Technical Specialist Name Role Phone Andres Lentz MD Primary Care Provider [phone] Reason for Referral * Diagnostic Imaging (Emergency) - Authorized Specialty Diagnoses / Procedures Referred By Contac t Referred To Contact Radiology Diagnoses Endometrial cancer ([facility]) Procedures CT abdomen and pelvis with contrast Malachi Snow MD [address] [place] [address], [address] [place] [address] Phone: tel: fax: Referral ID Status Reason Start Date Expiration Date V isits Requested Visits Authorized [id number] Authorized 04/30/2025 04/30/2026 1 1 * Diagnostic Imaging (Emergency) - Authorized Specialty Diagnoses / Procedures Referred By Contac t Referred To Contact Radiology Diagnoses Endometrial cancer ([facility]) Procedures CT chest with contrast Malachi Snow MD [address] [place] [address], [address] [place] [address] Phone: tel: fax: Referral ID Status Reason Start Date Expiration Date V isits Requested Visits Authorized [id number] Authorized 04/30/2025 04/30/2026 1 1 Reason for Visit * Reason Comments New Patient * Consultation (Routine) - Pending Review Specialty Diagnoses / Procedures Referred By Contact Referred To Contact Oncology / Gynecologic Oncology Diagnoses Endometrial cancer ([facility]) [facility] Gynecology Oncology, A Department [address] [place] [address] Phone: tel: fax: [facility] Gynecology Oncology, A Department of [address] [place] [address] Phone: tel: fax: Referral ID Status Reason Start Date Expiration Date Visits Requested Visits Authorized [id number] Pending Review Specialty Services Required 04/18/2025 04/18/2026 1 1 Encounter Details Date Type Department Care Team (Late st Contact Info) Description 04/30/2025 3:00 PM EDT Office Visit [facility] Gynecology Oncology, A Department of [address] [place] [address] Malachi Snow MD [address] [place] [address], [address] [place] [address] Endometrial cancer (CMS-HCC) (Primary Dx); Pre-procedure lab exam Social History Tobacco Use Types Packs/Day Years Used Date Smoking Tobacco: Never Smokeless Tobacco: Never Tobacco Cessation:Counseling Given: Not Answered Alcohol Use Standard Drinks/Week Comments Not Currently 0 (1 standard drink = 0.6 oz pur e alcohol) Childcare Answer Date Recorded Childcare Unknown 04/24/2019 Employment Answer Date Recorded Employment Unknown 04/24/2019 Purpose - Life Answer Date Recorded Purpose and direction in life Unknown Comments Unknown Sex and Gender Information Value Date Recorded Sex Assigned at Not on file Legal Sex Female 12:04 PM EDT Gender Identity Not on file Sexual Orientation Not on file documented as of this encounter Progress Notes * Malachi Snow MD - 04/30/2025 3:00 PM EDT Subjective: Naz is a 65 y.o. female here for consultation from for evaluation and management of endometrial adenocarcinoma, high-grade. She had several episodes of postmenopausal bleeding and subsequently had a hysteroscopy D&C that revealed the above diagnosis. She is here to discuss further management today. We did discuss that this is a surgically managed disease and based on her tumor grade her risk of disease outside the uterus has approximately 30%, we did discuss obtaining a CT scan of the chest abdomen and pelvis to rule out distant disease and for surgical planning. We also discussed the need for surgical staging including hysterectomy with BSO and lymph node assessment. Oncology History No overview note Naz : Denies Early satiety Denies Abdominal distention Denies Leg swelling Denies Shortness of breath Denies Vaginal bleeding Denies Change in bowel habits Denies Change in bladder habits Denies Nausea and vomiting All other systems negative, unless specifically noted in HPI. Past Gynecologic History: OB History No obstetric history on file. No LMP recorded. Hormonal Contraceptives No HRT use No History of abnormal pap No History reviewed. No pertinent surgical history. History reviewed. No pertinent past medical history. History reviewed. No pertinent family history. Social History Tobacco Use Smoking status: Never Smokeless tobacco: Never Substance Use Topics Alcohol use: Not Currently Review of Symptoms: Pertinent items are noted in HPI. Objective: There were no vitals taken for this visit. ECO- Asymptomatic General appearance: alert, appears stated age and cooperative Head: Normocephalic, without obvious abnormality, atraumatic Ears: normal TM's and external ear canals both ears Neck: no adenopathy, no carotid bruit, no JVD, supple, symmetrical, trachea midline and thyroid notenlarged, symmetric, no tenderness/mass/nodules Lungs: clear to auscultation bilaterally Breasts: normal appearance, no masses or tenderness Heart: regular rate and rhythm, S1, S2 normal, no murmur, click, rub or gallop Abdomen: abnormal findings: Soft, nontender, obese, no rebound or guarding. Pelvic: cervix normal in appearance, external genitalia normal, uterus normal size, shape, and consistency, vagina normal without discharge Extremities: extremities normal, atraumatic, no cyanosis or edema Pulses: 2+ and symmetric Skin: Skin color, texture, turgor normal. No rashes or lesions Lymph nodes: Cervical, supraclavicular, and axillary nodes normal. Neurologic: Grossly normal Labs: Lab Results Component Value Date WBC 5.4 06/24/2020 HGB 13.1 06/24/2020 HCT 38.9 06/24/2020 MCH 29.7 06/24/2020 MCHC 33.7 06/24/2020 PLT 192 06/24/2020 MPV 9.9 06/24/2020 RDW 13.8 06/24/2020 Lab Results Component Value Date BUN 16 06/24/2020 K 4.2 06/24/2020 CL 106 06/24/2020 ALBUMIN 4.0 06/24/2020 AST 17 06/24/2020 No results found for: GGT No results found for: LDH No results found for: MG No results found for: PHOS No results found for: URIC Assessment: Patient is diagnosed with Patient Active Problem List Diagnosis Endometrial cancer ([facility]) Pre-procedure lab exam Plan: 1. The patient has a documented plan of care to address pain. 2. Endometrial adenocarcinoma-plan for minimally invasive hysterectomy with BSO, sentinel lymph node dissection, pelvic washings. We discussed the possibility of adjuvant therapy based on pathologic findings. We will obtain a CT scan preoperatively for surgical planning. 3. Discussed the risks of surgery in detail including; bleeding, infection, damage to internal organs, risk of anesthesia including-clots, pneumonia, myocardial infarction, stroke and even . Thepatient understands the risks and elects to proceed. 4. Total time spent was 66 minutes: Preparing to see the patient (e.g., review of tests) Obtaining and/or reviewing separately obtained history Performing a medically appropriate examination and/or evaluation Counseling and educating the patient/family/caregiver Ordering medications, tests, or procedures Referring and communicating with other health healthcare marketer (not separately reported) Documenting clinical information in the electronic or other health record Malachi Snow MD documented in this encounter Plan of Treatment Upcoming Encounters Date Type Department Care Team (Latest Contact Info) Description 05/08/2025 1:45 PM EDT [facility] On [address] [address] 05/12/2025 1:00 PM EDT Hospital Encounter [facility] - Surgery [address] [place] [address] [phone] Malachi Snow MD [address] [facility], [address] [place] [address] 05/12/2025 1:00 PM EDT - 05/12/2025 3:15 PM EDT Surgery [facility] - Surgery [address] [address] Malachi Snow MD [address] [facility], [address] [facility] [address] DAVINCI HYSTERECTOMY SALPINGO OOPHORECTOMY 05/27/2025 11:30 AM EDT Office Visit [facility] - Medical Oncology [address] [place] [address] Lindsay Hansen PA [address] [place] [address] Scheduled Orders Name Type Priority Associated Diagnoses Orde r Schedule CT chest with contrast Imaging STAT Endometrial cancer (CMS-HCC) Expected: 04/30/2025, Expires: 04/30/2026 Creatinine includes GFR, serum Lab Routine Endometrial cancer (CMS-HCC) Pre-procedure lab exam 1 Occurrences starting 04/30/2025 until 04/30/2026 CT abdomen and pelvis with contrast Imaging STAT Endometrial cancer (CMS-HCC) Expected: 04/30/2025, Expires: 04/30/2026 Scheduled Procedures Name Priority Associated Diagnoses Date/Ti me DAVINCI HYSTERECTOMY SALPINGO OOPHORECTOMY ENDOMETRIAL ADENOCARCINOMA 05/12/2025 1:00 PM EDT DAVINCI DISSECTION LYMPH NODE PELVIC SENTINEL ENDOMETRIAL ADENOCARCINOMA 05/12/2025 1:00 PM EDT documented as of this encounter Visit Diagnoses Diagnosis Endometrial cancer (CMS-HCC)- Primary Malignant neoplasm of corpus uteri, except isthmus Pre-procedure lab exam Pre-procedural laboratory examination documented in this encounter Care Teams Technical Specialist Relationship Specialty Start Date End Date Andres Lentz MD PCP - General Family Medicine 06/24/20 documented as of this encounter
--- OUTSIDE RECORDS SUMMARY | 2025-05-02 08:38 | XMS_ITS | Encounter Summary ---
Author Organization [facility] Address [address] [place] [address] Care Team Providers Care Call Center Trainer Name Role Phone Andres Lentz MD Primary Care Provider [phone] Berta Rivero OD Unavailable Encounter Details Date Type Department Care Team (Late st Contact Info) Description 04/21/2025 Bamboo flowsheet [facility] [address] [facility] [address] Bisi Bains PA [address] [facility] [address] [place], [facility] Social History Tobacco Use Types Packs/Day Years [...] on file documented as of this encounter Plan of Treatment Not on file documented as of this encounter Visit Diagnoses Not on filedocumented in this encounter Care Teams Call Center Trainer Relationship Specialty Start Date End Date Andres Lentz MD [address] [place] [address] PCP - General Family Medicine 07/04/23 Berta Rivero OD [address] [place], [place] [id number] Referring Physician Optometry 05/21/24 documented as of this encounter
--- OUTSIDE RECORDS SUMMARY | 2025-05-02 08:38 | XMS_ITS | Clinical Summary ---
Author Organization [facility] Address [address] [place] [address] Care Team Providers Care Photo Mask Pattern Generator Name Role Phone Andres Lentz MD Primary Care Provider [phone] Social History Tobacco Use Types Packs/Day Years Used Date Smoking Tobacco: Never Assessed Comments Unknown Sex and Gender Information Value Date Recorded Sex Assigned at Not on file Legal Sex Female 10:00 AM EST Gender Identity Not on file Sexual Orientation Not on file Plan of Treatment Health Maintenance Due Date Last Done Comments Depression Screen 1970 Hepatitis C screen 1976 DTaP/Tdap/Td vaccine (1 - Tdap) 1977 Breast cancer screen 1998 Lipids 1998 Colonoscopy 2003 Colorectal Cancer Screen 2003 FIT/FOBT: Average risk 2003 Fecal-DNA (Cologuard): [place] ge risk 2003 Sigmoidoscopy/CT colonography 2003 Pneumococcal 50+ years Vacci ne (1 of 1 - PCV) 2008 DEXA (modify frequency per FRAX score) 2013 Annual Wellness Visit (Medicare) 10/09/2023 COVID-19 Vaccine (3 - 2023-2 5 season) 2024 11/20/2021, 10/30/2021 Flu vaccine (Season Ended) 2025 Respiratory Syncytial Virus (RSV) or age 60 yrs+ (1 - 1-dose 75+ series) 2033 Shingles vaccine Completed 06/13/2019, 04/15/2019 Hepatitis A vaccine Aged Out No longe r eligible based on patient's age to complete this topic Hepatitis B vaccine Aged Out No longe r eligible based on patient's age to complete this topic Hib vaccine Aged Out No longer eligi ble based on patient's age to complete this topic Meningococcal (ACWY) vaccine Aged Out No longer eligible based on patient's age to complete this topic Meningococcal B vaccine Aged Out No l onger eligible based on patient's age to complete this topic Polio vaccine Aged Out No longer elig ible based on patient's age to complete this topic Insurance MEDICARE Member Subscriber Plan / Payer (Ef fective 2023-Present) Name:Naz Juan Relation to Subscriber:Self Name:Naz Juan Payer ID:Not on file Group ID:Not on file Type:Not on file Address: [address] [place] [address] Care Teams Photo Mask Pattern Generator Relationship Specialty Start Date End Date Andres Lentz MD [address] [place] [facility] [place] [id number] PCP - General Family Medicine 07/05/23
--- OUTSIDE RECORDS SUMMARY | 2025-05-02 08:38 | XMS_ITS | Encounter Summary ---
Author Organization [facility] Address [address] [place] [address] Care Team Providers Care Assembler Name Role Phone Andres Lentz MD Primary Care Provider [phone] Berta Rivero OD Unavailable Encounter Details Date Type Department Care Team (Late st Contact Info) Description 07/04/2023 Abstract [facility] [address] [place] [address] Isac King, DPLiyah [address] [place] [address] Social History Tobacco Use Types Packs/Day Years Used Date Smoking Tobacco: Never Smokeless Tobacco: Never Alcohol Use Standard Drinks/Week [...] on filedocumented in this encounter Care Teams Assembler Relationship Specialty Start Date End Date Andres Lentz MD [address] [place] [address] PCP - General Family Medicine 07/04/23 Berta Rivero OD [address] [place] [address] Referring Physician Optometry 05/21/24 documented as of this encounter
--- OUTSIDE RECORDS SUMMARY | 2025-05-02 08:39 | XMS_ITS | Encounter Summary ---
Author Organization [facility] Address [address] [place] [address] Care Team Providers Care Boiler Or Engine Operator Name Role Phone Andres Lentz MD Primary Care Provider [phone] Berta Rivero OD Unavailable Encounter Details Date Type Department Care Team (Late st Contact Info) Description 04/11/2025 Abstract [facility] [address] [address] Yovani Valdez DO [address] [place] [address] Social History Tobacco Use Types Packs/Day Years [...] on filedocumented in this encounter Care Teams Boiler Or Engine Operator Relationship Specialty Start Date End Date Andres Lentz MD [address] [place] [address] PCP - General Family Medicine 07/04/23 Berta Rivero OD [address] [place], [place] [phone] Referring Physician Optometry 05/21/24 documented as of this encounter
--- OUTSIDE RECORDS SUMMARY | 2025-05-02 08:39 | XMS_ITS | Encounter Summary ---
Author Organization [facility] Address [address] [place] [address] Care Team Providers Care Diesel Mechanic Farm Name Role Phone Andres Lentz MD Primary Care Provider [phone] Berta Rivero OD Unavailable Encounter Details Date Type Department Care Team (Late st Contact Info) Description 03/20/2025 Abstract [facility] [address] [place] [address] [place] [address] Rubi Cabrera LPN Social History Tobacco Use Types Packs/Day Years [...] on filedocumented in this encounter Care Teams Diesel Mechanic Farm Relationship Specialty Start Date End Date Andres Lentz MD [address] [place] [address] PCP - General Family Medicine 07/04/23 Berta Rivero OD [address] [place] [address] Referring Physician Optometry 05/21/24 documented as of this encounter
--- OUTSIDE RECORDS SUMMARY | 2025-05-02 08:39 | XMS_ITS | Clinical Summary ---
Author Organization [employer] Address [id number] [address] [place] [address] Care Team Providers Care Brancher Name Role Phone Andres Lentz MD Primary Care Provider [phone] Allergies Active Allergy Reactions Criticality Noted Date Comments Penicillins 02/27/2025 Medications albuterol (PROVENTIL,VENT SHEILA) 2.5 mg /3 mL (0.083 %) nebulizer solution every 6 (six) hours as needed. Active amLODIPine (NORVASC) 5 mg tablet Take 1 tablet (5 mg total) by mouth in the morning. TAKE 1 TABLET BY MOUTH EVERY DAY FOR 30 DAYS. 04/26/2025 Active azithromycin (ZITHROMAX) 250 mg tablet 2 tabs today then 1 tab Orally daily for 5 days 02/12/2025 Active carvediloL (COREG) 25 mg tablet TAKE 1 TABLET BY MOUTH TWICE A DAY WITH FOOD FOR 90 DAYS 03/27/2025 Active esomeprazole (NexIUM) 20 mg capsule Take 1 capsule (20 mg total) by mouth. Active furosemide (LASIX) 40 mg tablet Take 1 tablet (40 mg total) by mouth. 03/24/2025 Active ibuprofen (MOTRIN) 600 mg tablet TAKE 1 TABLET BY MOUTH 3 TIMES A DAY WITH FOOD OR MILK NEEDED 03/24/2025 Active losartan (COZAAR) 100 mg tablet 1 (one) time each day at the same time. Active omeprazole (PriLOSEC) 40 mg capsule TAKE 1 CAPSULE BY MOUTH EVERY DAY 30 MINUTES BEFORE MORNING MEAL 04/28/2025 Active potassium chloride (K-TAB,KLOR-CON ) 10 MEQ CR tablet TAKE 1 TABLET BY MOUTH TWICE A DAY FOR 90 DAYS 04/22/2025 Active Active Problems Problem Noted Date Diagnosed Date Endometrial cancer 04/30/2025 Pre-procedure lab exam 04/30/2025 Encounters Date Type Department Care Team Description 05/01/2025 Orders Only [facility] Gynecology Oncology, Department of [address] [facility] [place] [address] Malachi Snow MD Endometrial cancer [facility] (Primary Dx); Preop testing 04/30/2025 3:00 PM EDT Office Visit [facility] Gynecology Oncology, A Department of [address] [place] [address] Malachi Snow MD Endometrial cancer ([facility] (Primary Dx); Pre-procedure lab exam 04/30/2025 Travel from Last 3 Months Social History Tobacco Use Types Packs/Day Years [...] Orientation Not on file Plan of Treatment Upcoming Encounters Date Type Department Care Team (Latest Contact Info) Description 05/08/2025 1:45 PM EDT Procedure visit [facility] On [address] [address] 05/12/2025 1:00 PM EDT Hospital Encounter [facility] Division of [facility] - Surgery [address] [place] [address] Malachi Snow MD [address] [place] [address], [address] [facility] [place] [address] 05/12/2025 1:00 PM EDT - 05/12/2025 3:15 PM EDT Surgery [facility] Division of [facility] - Surgery [address] [place] [address] Malachi Snow MD [address] [facility], [address] [place] [address] DAVINCI HYSTERECTOMY SALPINGO OOPHORECTOMY 05/27/2025 11:30 AM EDT Office Visit [facility] - Medical Oncology [facility] [place] [address] Lindsay Hansen PA [address] [facility] [place] [address] Scheduled Procedures Name Priority Associated Diagnoses Date/Ti me DAVINCI HYSTERECTOMY SALPINGO OOPHORECTOMY ENDOMETRIAL ADENOCARCINOMA 05/12/2025 1:00 PM EDT DAVINCI DISSECTION LYMPH NODE PELVIC SENTINEL ENDOMETRIAL ADENOCARCINOMA 05/12/2025 1:00 PM EDT Health Maintenance Due Date Last Done Comments Depression Screening 1970 Adult BMI Screening 1976 DTaP,Tdap and Td Vaccines (1 - Tdap) 1977 Fall Risk Screening 2023 Influenza Vaccine 07/14/2025 10/13/2017 Tobacco Screening 04/30/2026 04/30/2025 Zoster (Shingles) Vaccine Completed 06/13/2019, 01/2019 Goals Goal Patient Goal Type Associated Problems Recent Progress Patient-Stated? Author Autogenerat ed Goal Care Plan Autogenerated Problem No Keri Leroy Medical Devices Not on file Additional Health Concerns Active Problems Noted Date Diagnosed Date Autogenerated Problem 05/01/2025 Insurance MEDICARE [facility] [place] [id number] Care Teams Brancher Relationship Specialty Start Date End Date Andres Lentz MD PCP - General Family Medicine 06/24/20
--- OUTSIDE RECORDS SUMMARY | 2025-05-02 08:39 | XMS_ITS | Encounter Summary ---
Author Organization [facility] Address [address] [place] [address] Care Team Providers Care Investor Relations Coordinator Name Role Phone Andres Lentz MD Primary Care Provider [phone] Berta Rivero OD Unavailable Encounter Details Date Type Department Care Team (Late st Contact Info) Description 04/02/2025 Abstract [facility] OB [address] [place] [address] Yovani Valdez DO [address] [place] [address] Social History Tobacco Use Types [...] on filedocumented in this encounter Care Teams Investor Relations Coordinator Relationship Specialty Start Date End Date Andres Lentz MD [address] [place] [address] PCP - General Family Medicine 07/04/23 Berta Rivero OD [address] [place], [place] [address] Referring Physician Optometry 05/21/24 documented as of this encounter
--- OUTSIDE RECORDS SUMMARY | 2025-05-02 08:39 | XMS_ITS | Patient Health Record ---
Author Organization [facility] Address [address] [place] [address] Care Team Providers Care Photograph Enlarger Name Role Phone Femi Lentz Primary Care Provider [phone] Allergies Allergen (clinical drug ingredient) Drug/Non Drug Allergy documented on EMR Reaction Allergy Type Onset Date Status sulfamethoxazole / trimethoprim Bactrim unknown Drug Allergy Active Levaquin unknown Drug Allergy Active Results Component Value Reference Range Notes CBC AUTO DIFF Reviewed date:04/13/2025 04:45:07 PM Interpretation: Performing Lab: Notes/Report: [facility] , White Blood Count 6.1 4.0-11.0 10 3/uL Red Blood Count 4.43 4.20-5.40 10 6/uL Hemoglobin 12.8 12.0-16.0 g/dL Hematocrit 39.4 36.0-48.0 % Mean Corpuscular Volume 88.9 81.0-99.0 fL Mean Corpuscular Hemoglobin 28.9 26.7-34.0 pg Mean Corpuscular HGB Conc 32.5 29.9-35.2 g/dL Red Cell Distribution Width 12.8 11.0-15.0 % Platelet Count 212 150-450 10 3/uL Mean Platelet Volume 10.7 9.5-13.5 fL Neutrophils Percent Auto 74.5 43.0-75.0 % Lymphocytes Percent Auto 17.2 20.5-60.0 % Monocytes Percent Auto 6.2 1.7-12.0 % Eosinophils Percent Auto 0.8 0.9-7.0 % Basophils Percent Auto 0.8 0.2-2.0 % Immature Granulocytes Pct Auto 0.5 0.0-0.5 % Neutrophils Absolute Auto 4.6 1.4-6.5 10 3/uL Lymphocytes Absolute Auto 1.1 1.2-3.8 10 3/uL Monocytes Absolute Auto 0.4 0.3-0.8 10 3/uL Eosinophils Absolute Auto 0.1 0.0-0.7 10 3/uL Basophils Absolute Auto 0.1 0.0-0.1 10 3/uL Immature Granulocytes Abs Auto 0.03 0.00-0.03 10 3/uL Performing Lab: see note - [facility] LB PROF CHEM 8 (BAS METB) Reviewed date:04/01/2025 08:40:49 PM Interpretation: Performing Lab: Notes/Report: [facility] , Sodium 145 136-145 mmol/L Potassium 4.4 3.5-5.1 mmol/L Chloride 105 98-107 mmol/L Carbon Dioxide 29.7 21.0-32.0 mmol/L Anion Gap 14.7 Glucose 112 74-106 mg/dL Blood Urea Nitrogen 19.0 7.0-18.0 mg/dL Creatinine 0.91 0.55-1.02 mg/dL Estimated GFR ( Nyla >60 >=60 mL/min/1.73m 2 Estimated GFR (Non- Alyce >60 >=60 mL/min/1.73m 2 BUN Creatinine Ratio 20.9 Calcium 9.0 8.5-10.1 mg/dL Performing Lab: see note - [facility] LB ECG 12 lead Reviewed date:04/01/2025 08:40:49 PM Interpretation: Performing Lab: Notes/Report: Source Facility: [facility] [place] [address] [place] [address] Electrocardiograph Report Signed Patient: DELMIS JUAN MR#: [id number] : 1960 Acct:[id number] Age/Sex: 64 / F ADM Date: 04/01/25 Loc: PST Attending Dr: Kurtis Valdez D.O. Ordering Physician: Kurtis Valdez D.O. Date of Service: 04/01/25 Procedure(s): ECG 12 lead Accession Number(s): [id number] cc: [facility] Test Date: 2025-04-01 Pat Name: DELMIS JUAN Department: Room: - Gender: Female Proposal Writer: : 1960 Requested By: KURTIS VALDEZ Order Number: [id number] Reading MD: MAC ECHOLS M.D. Measurements Intervals [place] Rate: 55 P: 40 AR: 162 QRS: 30 QRSD: 89 T: 23 QT: 414 QTc: 398 Interpretive Statements SINUS BRADYCARDIA Borderline ECG Compared to ECG 01/04/2017 20:11:26 Heart rate has decreased Electronically Signed On 04-01-2025 18:34:40 EDT by MAC ECHOLS M.D. Dictated By: MAC ECHOLS Signed By: 04/01/251834 DD/ 0953 TD/TT: Rn Chemical Dependency: [place] [address] Electrocardiograph Report Signed Patient: Brenda JUAN MR#: [id number] : 1960 Acct:[id number] Age/Sex: 64 / F ADM Date: 04/01/25 Loc: PST Attending Dr: Kurtis Valdze D.O. Ordering Physician: Kurtis Valdez D.O. Date of Service: 04/01/25 Procedure(s): ECG 12 lead Accession Number(s): [id number] cc: [facility] Test Date: 2025-04-01 Pat Name: DELMIS THAKKAR Department: 54 Room: - Gender: Female Proposal Writer: : 1960 Requ ested By: KURTIS VALDEZ Order Number: [id number] Reading MD: MAC ECHOLS M.D. Measurements Intervals [place] Rate: 55 P: 40 AR: 162 QRS: 30 QRSD: 89 T: 23 QT: 414 QTc: 398 Interpretive Statements SINUS BRADYCARDIA Borderline ECG Compared to ECG 12/15 20:11:26 Heart rate has decreased Electronically Indira d On 04-01-2025 18:34:40 EDT by MAC ECHOLS M.D. Dictated By: MAC ECHOLS Signed By: 04/01/251834 DD/ 0953 TD/TT: Rn Chemical Dependency: Reason For Referral No Information Medications Medication SIG (Take, Route, Frequency, Duration) Notes Start Date End Date Status Azithromycin 250 MG 2 tabs today then 1 tab Orally daily for 5 days 02/12/2025 Active amLODIPine Besylate 5 MG TAKE 1 TABLET B Y MOUTH EVERY DAY FOR 30 DAYS for 90 Active Furosemide 40 MG TAKE 1 TABLET BY YASMIN TH EVERY DAY for 90 Active Vitamin D3 125 MCG (5000 UT) TAKE 1 CAPSULE BY MOUTH ONCE A DAY DIRECTED for 90 Active Simvastatin 20 MG TAKE 1 TABLET BY YASMIN TH EVERY DAY IN THE EVENING FOR 90 DAYS for 90 Active Ibuprofen 600 MG TAKE 1 TABLET BY YASMIN TH 3 TIMES A DAY WITH FOOD OR MILK NEEDED for 90 Active Potassium Chloride ER 10 MEQ TAKE 1 TABLET BY MOUTH TWICE A DAY for 90 days Active Omeprazole 40 MG TAKE 1 CAPSULE BY MO UTH 30 MINUTES BEFORE MORNING MEAL ONCE A DAY for 90 Active Carvedilol 25 MG TAKE 1 TABLET BY YASMIN TH TWICE A DAY WITH FOOD FOR 90 DAYS for 90 Active Losartan Potassium 100 MG TAKE 1 TABLET BY MOUTH EVERY DAY for 90 Active Albuterol Sulfate (2.5 MG/3ML) [...] Tobacco non-user Ex-heavy c igarette smoker (20-30/day) Problems Problem Type SNOMED Code ICD Code Onset Dates Problem Status W/U Status Risk Notes Problem 765848652 Strain of muscle(s) and tendon(s) of anterior muscle group at lower leg level, unspecified leg, initial encounter (S86.219A) Active confirmed Problem 64574647 Sprain of other ligament of unspecified ankle, initial encounter (S93.499A) Active confirmed Problem Chest pain (55480789) Chest pain (R07.9) Active confirmed Problem Osteoarthritis (585942496) Osteoarthritis (M19.90) Active confirmed Problem Gastroesophageal reflux disease (466189160) GERD (gastroesophageal reflux disease) (K21.9) Active confirmed Problem Dyspnea on exertion (90452487) Dyspnea on exertion (R06.09) Active confirmed Problem Ankle pain (967070428) Ankle pain (M25.579) Active confirmed Problem Well adult (757826534) Well adult (Z00.00) Active confirmed Problem Nasal obstruction (819095084) Nasal obstruction (J34.89) Active confirmed Problem Edema (400310513) Edema of both legs (R60.0) Active confirmed Problem Asthmatic bronchitis (748245791) Asthmatic bronchitis (J45.909) Active confirmed Problem Essential hypertension (52465582) Essential (primary) hypertension (I10) Active confirmed Problem Emphysema (68255310) Emphysema (J43.9) Active confirmed Problem Essential hypertension (36761919) Essential Hypertension (I10) Active confirmed Problem Tobacco user (690922531) Tobacco dependence with current use (F17.200) Active confirmed Vital Signs Temperature 97.3 degrees Fahrenheit 11/01/2024 Blood pressure diastolic 82 mm Hg 11/01/2024 Height 71 in 11/01/2024 Blood pressure systolic 140 mm Hg 11/01/2024 Weight 294.6 lbs 11/01/2024 BMI 41.08 kg/m2 11/01/2024 Procedures Procedure Date Ordered Date Performed Result Body Sit e Cerumen Removal - performed 11/01/2024 11/01/2024 N/A Encounters Encounter Location Date Provider Diagnosis [facility] [address] [place] [address] 11/01/2024 Femi Lentz Acute bronchitis, unspecified organism J20.9 ; Cerumen impaction H61.20 and Bilateral hearing loss due to cerumen impaction H61.23 [facility] [address] [place] [address] 06/12/2024 Femi [facility] [address] [place] [address] 07/16/2024 Femi [facility] [address] [place] [address] 07/16/2024 [facility] [address] [facility] [place] [place] [address] 09/27/2024 Femi Lentz [facility] [address] [facility] [place] [address] 12/23/2024 Femi Lentz [facility] [address] [facility] [place] [address] 02/12/2025 Femi Lentz Acute bronchitis, unspecified organism J20.9 [facility] [address] [facility] [place] [address] 06/10/2024 Femi Lentz Assessments Encounter Date Diagnosis (ICD Code) Assessment Notes Treatment Notes Treatment Clinical Notes Section Notes 11/01/2024 Acute bronchitis, unspecified organism (ICD-10 - J20.9) Rest and drink more liquids, especially water. You may use a humidifier or vaporizer to help keep the drainage moist. Nrmw-xav-icxonue Nasal Saline may help the stuffy and runny nose. Use Ibuprofen and or Tylenol as needed for fever, chills, body aches or pain. Children 5 years old should not be given eozi-mak-zryfgsi cough and cold medications such as guaifenesin and dextromethorphan. If you're over age 5, you may try rsjk-lqs-fpvqvix cold medications such as guaifenesin and dextromethorphan, [...] 911 11/01/2024 Cerumen impaction (ICD-10 - H61.20) 02/12/2025 Acute bronchitis, unspecified organism (ICD-10 - J20.9) 11/01/2024 Bilateral hearing loss due to cerumen impaction (ICD-10 - H61.23) Plan Of Treatment Pending Test Test Name Order Date CMP (COMPLETE METABOLIC PANEL) 4 HEMOGLOBIN A1C (GLYCO) 04/11/2024 IRON, TOTAL 04/11/2024 LIPID PANEL (CHOL/TRIG/HDL/LDL) 04/11/20 24 CBC WITH DIFF 04/11/2024 VITAMIN D, 25 LEVEL (TOTAL) 04/11/2024 Cerumen Removal - performed 11/01/2024 MAMM MAMMOGRAM CAD DIAGNOSTIC 04/11/2024 Insulin Level 04/11/2024 STOOL OCCULT BLOOD 04/11/2024 XR ANKLE RT MIN 3 VIEWS 05/25/2023 THYROID PANEL (T4/TSH/FREE T3) 4 Insurance Providers Payer Name Payer Address Payer Phone Subscriber Number Group Number Insured Name Patient Relationship to Insured Coverage Start Date Coverage End Date MEDICARE [place] [address] [place] [address] [phone] [id number] Delmis Tenorio Self - patient is the insured [employer] [place] [address] [employer] [facility] 8 [place] [address] [id number] Delmis Tenorio Self - patient is the insured Medical (General) History Medical History History ICD Code Well adult Z00.00 Ankle pain M25.579 Osteoarthritis M19.90 Essential Hypertension I10 Dyspnea on exertion R06.09 Edema of both legs R60.0 GERD (gastroesophageal reflux disease) K 21.9 Nasal obstruction J34.89 Chest pain R07.9 Emphysema J43.9 Asthmatic bronchitis J45.909 Tobacco dependence with current use F17. 200 Surgical History Surgery Date(Month/Year) cataract OU
--- OUTSIDE RECORDS SUMMARY | 2025-05-02 08:39 | XMS_ITS | Encounter Summary ---
Author Organization [facility] Address [address] [place] [address] Care Team Providers Care Bi Data Architect Name Role Phone Andres Lentz MD Primary Care Provider [phone] Berta Rivero OD Unavailable Encounter Details Date Type Department Care Team (Late st Contact Info) Description 04/11/2025 Abstract [facility] OB [address] [place] [address] Yovani Valdez DO [address] [place] [address] Social History Tobacco Use Types [...] on filedocumented in this encounter Care Teams Bi Data Architect Relationship Specialty Start Date End Date Andres Lentz MD [address] [place] [address] PCP - General Family Medicine 07/04/23 Berta Rivero OD [address] [place], [place] [address] Referring Physician Optometry 05/21/24 documented as of this encounter
--- OUTSIDE RECORDS SUMMARY | 2025-05-02 08:39 | XMS_ITS | Encounter Summary ---
Author Organization [facility] tem Address [id number] [address] [place] [address] Care Team Providers Care Etiology Teacher Name Role Phone Andres Lentz MD Primary Care Provider [phone] Reason for Referral * Cardiology (Routine) - Authorized Specialty Diagnoses / Procedures Referred By Contchante t Referred To Contact Diagnoses Endometrial cancer ([facility]) Preop testing Procedures ECG 12 lead Malachi Snow MD [address] [place] [address], [address] [place] [address] Phone: tel: fax: Referral ID Status Reason Start Date Expiration Date V isits Requested Visits Authorized [id number] Authorized 05/01/2025 05/01/2026 1 1 Encounter Details Date Type Department Care Team (Late st Contact Info) Description 05/01/2025 Orders Only [facility] Gynecology Oncology, A Department of [address] [place] [address] Malachi Snow MD [address] [place] [address], [address] [place] [address] Endometrial cancer ([facility]) (Primary Dx); Preop testing Social History Tobacco Use Types Packs/Day Years Used Date Smoking Tobacco: Never Smokeless Tobacco: Never Alcohol Use Standard Drinks/Week Comments Not Currently [...] as of this encounter Plan of Treatment Upcoming Encounters Date Type Department Care Team (Latest Contact Info) Description 05/08/2025 1:45 PM EDT Procedure visit [facility] On [address] [address] 05/12/2025 1:00 PM EDT Hospital Encounter [facility] Surgery [address] [place] [address] Malachi Snow MD [address] [place] [address], [address] [place] [address] 05/12/2025 1:00 PM EDT - 05/12/2025 3:15 PM EDT Surgery [facility] Surgery [address] [place] [address] [place] [address] [place] [address], [address] [place] [address] DAVINCI HYSTERECTOMY SALPINGO OOPHORECTOMY 05/27/2025 11:30 AM EDT [facility] [place] [address] Lindsay Hansen PA [address] [place] [address] Scheduled Orders Name Type Priority Associated Diagnoses Orde r Schedule CBC with auto diff Lab Routine Endometrial cancer (CMS-HCC) Preop testing 1 Occurrences starting 05/01/2025 until 05/01/2026 Comprehensive metabolic panel Lab Routine Endometrial cancer ([facility]) Preop testing 1 Occurrences starting 05/01/2025 until 05/01/2026 ECG 12 lead ECG Routine Endometrial cancer ([facility]) Preop testing 1 Occurrences starting 05/01/2025 until 05/01/2026 Scheduled Procedures Name Priority Associated Diagnoses Date/Ti me DAVINCI HYSTERECTOMY SALPINGO OOPHORECTOMY ENDOMETRIAL ADENOCARCINOMA 05/12/2025 1:00 PM EDT DAVINCI DISSECTION LYMPH NODE PELVIC SENTINEL ENDOMETRIAL ADENOCARCINOMA 05/12/2025 1:00 PM EDT documented as of this encounter Goals Goal Patient Goal Type Associated Problems Recent Progress Patient-Stated? Author Autogenerat ed Goal Care Plan Autogenerated Problem No Keri Leroy documented as of this encounter Visit Diagnoses Diagnosis Endometrial cancer ([facility])- Primary Malignant neoplasm of corpus uteri, except isthmus Preop testing Unspecified pre-operative examination documented in this encounter Additional Health Concerns Active Problems Noted Date Diagnosed Date Autogenerated Problem 05/01/2025 documented as of this encounter Care Teams Etiology Teacher Relationship Specialty Start Date End Date Andres Lentz MD PCP - General Family Medicine 06/24/20 documented as of this encounter
--- OUTSIDE RECORDS SUMMARY | 2025-05-02 08:39 | XMS_ITS | Encounter Summary ---
Author Organization [facility] Address [address] [place] [address] Care Team Providers Care Chairman And Chief Executive Officer Name Role Phone Andres Lentz MD Primary Care Provider [phone] Berta Rivero OD Unavailable Encounter Details Date Type Department Care Team (Late st Contact Info) Description 04/11/2025 Abstract [facility] OB [address] [place] [address] Yovani Valdez DO [address] [place] [address] Social History Tobacco Use Types [...] on filedocumented in this encounter Care Teams Chairman And Chief Executive Officer Relationship Specialty Start Date End Date Andres Lentz MD [address] [place] [address] PCP - General Family Medicine 07/04/23 Berta Rivero OD [address] [place], [place] [phone] Referring Physician Optometry 05/21/24 documented as of this encounter
--- OUTSIDE RECORDS SUMMARY | 2025-05-02 08:39 | XMS_ITS | Clinical Summary ---
Author Organization [facility] Healthcare Address [address] [place] [address] Care Team Providers Care Tobacco Weigher Name Role Phone Andres Lentz MD Primary Care Provider [phone] Mat, Berta OD Unavailable Allergies Active Allergy Reactions Criticality Noted Date Comments Penicillins 02/27/2025 Medications losartan (Cozaar) 100 MG tablet 1 (one) time each day at the same time. Active potassium chloride CR (Klor-Con) 10 MEQ ER tablet Take 10 mEq by mouth in the morning and 10 mEq before bedtime. 3 Active simvastatin (Zocor) 20 MG tablet Take 20 mg by mouth in the morning. 3 Active ibuprofen 600 MG tablet every 8 (eight) hours. Active furosemide (Lasix) 40 MG tablet TAKE 1 TABLET BY MOUTH EVERY DAY FOR 90 DAYS 3 Active [facility] D3 125 MCG (5000 UT) capsule TAKE 1 CAPSULE BY MOUTH ONCE A DAY DIRECTED 3 Active amLODIPine (Norvasc) 5 MG tablet TAKE 1 TABLET BY MOUTH EVERY DAY FOR 30 DAYS 3 Active albuterol (2.5 MG/3ML) 0.083% nebulizer solution Take by nebulization every 6 (six) hours if needed for wheezing. Active esomeprazole (NexIUM) [address] capsule Take 20 mg by mouth in the morning. Take before meals. Do not open capsule.. Active hyoscyamine (Levsin) 0.125 MG SL tablet DISSOLVE 1 TABLET UNDER TONGUE BEFORE MEALS AND AT BEDTIME NEEDED FOR ABDOMINAL PAIN 4 Active carvedilol (Coreg) 25 MG tablet TAKE 1 TABLET BY MOUTH TWICE A DAY WITH FOOD FOR 90 DAYS 4 Active Active Problems Problem Noted Date Diagnosed Date Age-related nuclear cataract of both eyes 2023 Epiretinal membrane (ERM) of left eye 05/21/2024 Encounters Date Type Department Care Team Description 04/21/2025 1:20 PM EDT Office Visit [facility] [address] [place] [address] Bisi Bains PA Postoperative examination 04/21/2025 Bamboo flowsheet [facility] [address] [place] [address] Bisi Bains PA 04/17/[address] [facility] [address] [place] [address] Rubi Cabrera, CIRCUIT BREAKER SUPERVISOR 04/16/2025 [address]ill [facility] [address] [place] [address] Kym Duncan, CIRCUIT BREAKER SUPERVISOR 04/11/2025 Abstract [facility] [address] [place] [address] Kurtis Valdez, DO 04/11/2025 Abstract [facility] [address] [place] [address] Kurtis Valdez, DO 04/11/2025 Abstract [facility] [address] [place] [address] Kurtis Valdez, DO 04/11/2025 Abstract [facility] [address] [place] [address] Kurtis Valdez, DO 04/11/2025 Clinisync Result Encounter [facility] External Department Unsolicited Kurtis Valdez, DO 04/02/2025 Abstract [facility] [address] [place] [address] Kurtis Valdez, DO 04/01/2025 Clinisync Result Encounter [facility] External Department Unsolicited Kurtis Valdez, DO 04/01/2025 Clinisync Result Encounter [facility] External Department Unsolicited Kurtis Valdez DO 03/20/2025 Abstract [facility] [address] [place] [address] Rubi Cabrera LPN 03/18/2025 2:40 PM EDT Consult [facility] [address] [place] [address] Kurtis Valdez DO Pre-op examination; Postmenopausal bleeding; Thickened endometrium 03/18/2025 2:00 PM EDT Ancillary Procedure [facility] [address] [place] [address] Postmenopausal bleeding 02/27/2025 10:00 AM EDT Office Visit [facility] [address] [place] [address] Kurtis Valdez DO Postmenopausal bleeding 02/27/2025 Bamboo flowsheet [facility] [address] [place] [address] Kurtis Valdez DO from Last 3 Months Family History Medical History Relation Name Comments Cancer Other Diabetes Sibling Heart disease Sibling Relation Name Status Comments Other Sibling Alive Social History Tobacco Use Types Packs/Day Years Used Date Smoking Tobacco: Former Cigarettes Smokeless Tobacco: Never Tobacco Cessation:Counseling Given: Not Answered Alcohol Use Standard Drinks/Week Comments Never 0 (1 standard drink = 0.6 oz pur e alcohol) Comments Unknown Sex and Gender Information Value Date Recorded Sex Assigned at Not on file Legal Sex Female 4:55 PM EDT Gender Identity Not on file Sexual Orientation Not on file Last Filed Vital Signs Vital Sign Reading Time Taken Comments Blood Pressure 122/76 04/21/2025 1:23 PM EDT Pulse - - Temperature - - Respiratory Rate - - Oxygen Saturation - - Inhaled Oxygen Concentration - - Weight 129 kg (285 lb) 04/21/2025 1:23 PM EDT Height 185.4 cm (6' 1 ) 07/04/2023 4:06 PM EDT Body Mass Index 37.6 07/04/2023 4:06 PM EDT Plan of Treatment Health Maintenance Due Date Last Done Comments CT Colonography 1960 Colonoscopy 1960 Colorectal Cancer Screening 1960 FIT-DNA 1960 FIT 1960 FOBT 1960 Sigmoidoscopy 1960 Mammogram 1998 Pneumococcal Vaccine: 65+ Years (1 of 1 - PCV) 008 Influenza Vaccine (Season Ended) 2025 10/13/20 17 Procedures Procedure Name Priority Date/Time Associated Diagnosis Comments ALL CBC WITH AUTO DIFF Routine 04/11/2025 8:59 AM EDT ALL BASIC METABOLIC PANEL Routine 04/01/2025 9:55 AM EDT ECG 12-LEAD 04/01/2025 9:53 AM EDT US PELVIC COMPLETE W/ TV Routine 03/18/2025 2:49 PM EDT Postmenopausal bleeding from Last 3 Months Results * (ABNORMAL) ALL CBC WITH AUTO DIFF (04/11/2025 8:59 AM EDT) TBH WBC 6.1 4.0 - 11.0 10 3/uL TBH TBH RBC 4.43 4.20 - 5.40 10 6/uL TBH TBH HGB 12.8 12.0 - 16.0 g/dL TBH TBH HCT 39.4 36.0 - 48.0 % TBH TBH MCV 88.9 81.0 - 99.0 fL TBH TBH MCH 28.9 26.7 - 34.0 pg TBH TBH MCHC 32.5 29.9 - 35.2 g/dL TBH TBH RDW 12.8 11.0 - 15.0 % TBH TBH PLT 212 150 - 450 10 3/uL TBH TBH MPV 10.7 9.5 - 13.5 fL TBH NEUTROPHILS PERCENT AUTO 74.5 43.0 - 75.0 % TBH LYMPHOCYTES PERCENT AUTO 17.2(L) 20.5 - 60.0 % TBH MONOCYTES PERCENT AUTO 6.2 1.7 - 12.0 % TBH TBH EO % 0.8(L) 0.9 - 7.0 % TBH BASOPHILS PERCENT AUTO 0.8 0.2 - 2.0 % TBH IMMATURE GRANULOCYTES PCT AUTO 0.5 0.0 - 0.5 % TBH NEUTROPHILS ABSOLUTE AUTO 4.6 1.4 - 6.5 10 3/uL TBH LYMPHOCYTES ABSOLUTE AUTO 1.1(L) 1.2 - 3.8 10 3/uL TBH MONOCYTES ABSOLUTE AUTO 0.4 0.3 - 0.8 10 3/uL TBH TBH EO # 0.1 0.0 - 0.7 10 3/uL TBH BASOPHILS ABSOLUTE AUTO 0.1 0.0 - 0.1 10 3/uL TBH IMMATURE GRANULOCYTES ABS AUTO 0.03 0.00 - 0.03 10 3/uL TBH 04/11/2025 8:59 AM EDT 04/11/2025 9:00 AM EDT Narrative CLINISYNC - 04/11/2025 9:06 AM EDT Kurtis Montanao DO CLINISYKS Final Result [facility] * (ABNORMAL) ALL BASIC METABOLIC PANEL (04/01/2025 9:55 AM EDT) SODIUM 145 136 - 145 mmol/L TBH POTASSIUM 4.4 3.5 - 5.1 mmol/L TBH CHLORIDE 105 98 - 107 mmol/L TBH CARBON DIOXIDE 29.7 21.0 - 32.0 mmol/L TBH ANION GAP 14.7 TBH GLUCOSE 112(H) 74 - 106 mg/dL TBH BLOOD UREA NITROGEN 19.0(H) 7.0 - 18.0 mg/dL TBH CREATININE 0.91 0.55 - 1.02 mg/dL TBH TBH EGFR-AF DOMINICAN >60 >=60 mL/min/1.7 3m 2 TBH TBH EGFR-NON AF DOMINICAN >60 >=60 mL/min/1.7 3m 2 TBH BUN CREATININE RATIO 20.9 TBH CALCIUM 9.0 8.5 - 10.1 mg/dL TBH 04/01/2025 9:55 AM EDT 04/01/2025 10:01 AM EDT Narrative CLINISYNC - 04/01/2025 11:49 AM EDT us Kurtis Valdez DO CLINISYNC Final Result CLINISYNC TBH * ECG 12-LEAD (04/01/2025 9:53 AM EDT) Anatomical Region Laterality Modality Other 04/01/2025 9:53 AM EDT Narrative 04/01/2025 6:35 [place] [address] Electrocardiograph Report Signed Patient: DELMIS JUAN MR#: [id number] : 1960 Acct:[id number] Age/Sex: 64 / F ADM Date: 04/01/25 Loc: [facility] Attending Dr: Kurtis Valdez D.O. Ordering Physician: Kurtis Valdez D.O. Date of Service: 04/01/25 Procedure(s): ECG 12 lead Accession Number(s): [id number] cc: [facility] Test Date: 2025-04-01 Pat Name: DELMIS JUAN Department: Room: - Gender: Female Capsule Maker: : 1960 Requested By: KURTIS VALDEZ Order Number: [id number] Reading MD: MAC ECHOLS M.D. Measurements Intervals [place] Rate: 55 P: 40 ME: 162 QRS: 30 QRSD: 89 T: 23 QT: 414 QTc: 398 Interpretive Statements SINUS BRADYCARDIA Borderline ECG Compared to ECG 01/04/2017 20:11:26 Heart rate has decreased Electronically Signed On 04-01-2025 18:34:40 EDT by MAC ECHOLS M.D. Dictated By: MAC ECHOLS Signed By: 04/01/25 1835 DD/ 0953 TD/TT: Computer Forensics Examiner: Procedure Note Radiology, Radiologist, MD - 04/01/2025 [place] [address] Electrocardiograph Report Signed Patient: DELMIS JUAN MMR#: [id number] : 8Acct:[id number] Age/Sex: 64 / FADM Date: 04/01/25 Loc: PST Attending Dr: Kurtis Valdez D.O. Ordering Physician: Kurtis Valdez D.O. Date of Service: 04/01/25 Procedure(s): ECG 12 lead Accession Number(s): [id number] cc: [facility] Test Date: 2025-04-01 Pat Name: DELMIS JUAN Department: Room: - Gender: Female Capsule Maker: : 1960 Requested By: KURTIS VALDEZ Order Number: [id number] Reading MD: MAC ECHOLS M.D. Measurements Intervals [place] Rate: 55 P: 40 ME: 162 QRS: 30 QRSD: 89 T: 23 QT: 414 QTc: 398 Interpretive Statements SINUS BRADYCARDIA Borderline ECG Compared to ECG 01/04/2017 20:11:26 Heart rate has decreased Electronically Signed On 04-01-2025 18:34:40 EDT by MAC ECHOLS M.D. Dictated By: MAC ECHOLS Signed By:04/01/25 1835 DD/ 0953 TD/TT: Computer Forensics Examiner: us Kurtis Valdez DO CLINISYNC IMAGING Final Result * US Pelvis w/ TV (03/18/2025 2:49 PM EDT) Anatomical Region Laterality Modality Pelvis Ultrasound 03/19/2025 8:45 AM EDT Narrative 03/19/2025 8:45 AM EDT EXAM: US PELVIC COMPLETE W/ TV HISTORY: [...] II, MD, PHD at 19-Mar-2025 08:43:41 AM [facility] Procedure Note Vale Chakraborty MD - 03/19/2025 EXAM: US PELVIC COMPLETE W/ TV HISTORY: Postmenopausal bleeding x8 days occurring 2 weeks ago. G0. COMPARISON: None available. TECHNIQUE: Two-dimensional transabdominal grayscale and color Dopplerultrasound imaging of the pelvis was performed. Transvaginal wasperformed. FINDINGS: UTERUS 6.5 x 2.4 x 3.6 cm The uterus is anteverted in position and demonstrates a normal,homogeneous echotexture. Multiple nabothian cysts are visualized withinthe cervix. ENDOMETRIUM 0.6 cm The postmenopausal endometrium is thickened and demonstrates aheterogeneous echotexture. There is no definite internal mass lesion. RIGHT OVARY Not visualized LEFT OVARY Not visualized No fluid is present within the cul-de-sac. IMPRESSION: 1. Mildly thickened and heterogeneous postmenopausal endometrium withoutsonographic evidence of definite internal mass lesion. Hysteroscopy withtissue sampling is recommended for further evaluation. 2. Nonvisualization of the bilateral ovaries. Interpreted by: Electronically signed by VALE CHAKRABORTY II, MD, PHD [id number] 08:43:41 AM [facility] us Kurtis José Miguel DO [facility] US PROCEDURES Final Result from Last 3 Months Insurance MEDICARE [facility] [place] [address] Care Teams Tobacco Weigher Relationship Specialty Start Date End Date Andres Lentz MD [address] [place] [address] PCP - General Family Medicine 07/04/23 Berta Rivero OD [address] [place] [address] Referring Physician Optometry 05/21/24
--- OUTSIDE RECORDS SUMMARY | 2025-05-02 08:39 | XMS_ITS | Encounter Summary ---
Author Organization [facility] tem Address [id number] [address] [place] [address] Care Team Providers Care E Commerce Merchant Name Role Phone Andres Lentz MD Primary Care Provider [phone] Encounter Details Date Type Department Care Team (Latest Contact Info) Description 04/30/2025 Travel Social History Tobacco Use Types Packs/Day Years [...] Description 05/08/2025 1:45 PM EDT Procedure visit [facility] On [address] [address] 05/12/2025 1:00 PM EDT Hospital Encounter [facility] - Surgery [address] [place] [phone] Malachi Snow MD [address] [place] [address], [address] [place] [address] 05/12/2025 1:00 PM EDT - 05/12/2025 3:15 PM EDT Surgery [facility] [address] [address] Malachi Snow MD [address] [facility], [address] [place] [address] DAVINCI HYSTERECTOMY SALPINGO OOPHORECTOMY 05/27/2025 11:30 AM EDT Office Visit Zakia Gomez [facility] - Medical Oncology [facility] [place] [address] Lindsay Hansen PA [address] [address] [place] [address] Scheduled Procedures Name Priority Associated Diagnoses Date/Ti me DAVINCI HYSTERECTOMY SALPINGO OOPHORECTOMY ENDOMETRIAL ADENOCARCINOMA 05/12/2025 1:00 PM EDT DAVINCI DISSECTION LYMPH NODE PELVIC SENTINEL ENDOMETRIAL ADENOCARCINOMA 05/12/2025 1:00 PM EDT documented as of this encounter Visit Diagnoses Not on filedocumented in this encounter Care Teams E Commerce Merchant Relationship Specialty Start Date End Date Andres Lentz MD PCP - General Family Medicine 06/24/20 documented as of this encounter
--- OUTSIDE RECORDS SUMMARY | 2025-05-02 08:39 | XMS_ITS | Encounter Summary ---
Author Organization [facility] Address [address] [place] [address] Care Team Providers Care Stock Parts Inspector Name Role Phone Andres Lentz MD Primary Care Provider [phone] Berta Rivero OD Unavailable Encounter Details Date Type Department Care Team (Late st Contact Info) Description 04/11/2025 Abstract [facility] OB [address] [place] [address] Yovani Valdez DO [address] [place] [address] Social History Tobacco Use Types [...] on filedocumented in this encounter Care Teams Stock Parts Inspector Relationship Specialty Start Date End Date Andres Lentz MD [address] [place] [address] PCP - General Family Medicine 07/04/23 Berta Rivero OD [address] [place], [place] [phone] Referring Physician Optometry 05/21/24 documented as of this encounter
--- OUTSIDE RECORDS SUMMARY | 2025-05-02 08:43 | XMS_ITS | CCD ---
Author Organization [facility] Care Team Providers Care Radio Station Manager Name Role Phone DR RADHA LENTZ Admitting Unavailable KISHOR, DR GARCIA Attending Unavailable KISHOR, DR GARCIA Referring Unavailable KISHOR, DR GARCIA Primary Care Unavailable KISHOR, DR GARCIA Consulting Unavailable KISHOR, DR GARCIA Admitting Unavailable KISHOR, DR GARCIA Attending Unavailable KISHOR, DR GARCIA Primary Care Unavailable KISHOR, DR GARCIA Consulting Unavailable Radha Lentz MD Primary Care Provider [phone] Berta Lovelace MD Unavailable Berta Rivero OD Unavailable Radha Lentz MD Primary Care Provider [phone] KURTIS VALDEZ Attending Unavailable KURTIS VALDEZ Attending Unavailable BISI CABEZAS Attending Unavailable LEFTY ECHOLS Attending Unavailable Radha Lentz MD Primary Care Provider [phone] Allergies Allergy Classification Reported Allergen(s) Allergy Type Date of Onset Reaction(s) Facility (1 source) Sulfamethoxazole / Trimethoprim Drug Allergy 12-04-19 17 [facility] (9 sources) Penicillins Propensity to adverse reactions 02-28-20 [facility] (2 sources) Penicillins Propensity to adverse reactions to drug 02-28-20 25 [facility] Medications Current Medications Medication Drug Class(es) Dates Sig (Normalized) Sig (Original) albuterol 0.83 mg/ml inhalation solution (13 sources) beta2-Adrenergic Agonist albuterol (PROVENTIL,RASTA BLAINE) 2.5 mg /3 mL (0.083 %) nebulizer solution every 6 (six) hours as needed. Active amLODIPine 5 mg oral tablet (13 sources) Dihydropyridine Calcium Channel Lorena Start: 04-26-2025 End: 05-26-2025 take 1 tablet by mouth in the morning, then take 1 tablet by mouth once daily amLODIPine (NORVASC) 5 mg tablet Take 1 tablet (5 mg total) by mouth in the morning. TAKE 1 TABLET BY MOUTH EVERY DAY FOR 30 DAYS. 04/26/2025 05/26/2025 Active Start: 05-24-2023 take 1 tablet by theresa th once daily amLODIPine (Norvasc) 5 MG tablet TAKE 1 TABLET BY MOUTH EVERY DAY FOR 30 DAYS 05/24/2023 Active azithromycin 250 mg oral tablet (2 sources) Macrolide Antimicrobial Start: 02-12-2025 azithromycin (ZITHROMAX) 250 mg tablet 2 tabs today then 1 tab Orally daily for 5 days 02/12/2025 Active carvedilol 25 mg oral tablet (18 sources) alpha-Adrenergic Lorena, beta-Adrenergic Lorena Start: 04-11-2024 take 1 tablet by mouth twice daily at mealtime carvediloL (COREG) 25 mg tablet TAKE 1 TABLET BY MOUTH TWICE A DAY WITH FOOD FOR 90 DAYS 03/27/2025 Active Start: 05-31-2023 End: 03-18-2025 take 1 tablet by mouth twice daily at mealtime carvedilol (Coreg) 12.5 MG tablet TAKE 1 TABLET BY MOUTH TWICE A DAY WITH FOOD FOR 90 DAYS 05/31/2023 03/18/2025 Discontinued cholecalciferol 0.125 mg oral capsule (11 sources) Vitamin D Start: 04-13-2023 take 1 capsule by mouth once daily [facility] D3 125 MCG (5000 UT) capsule TAKE 1 CAPSULE BY MOUTH ONCE A DAY DIRECTED 04/13/2023 Active esomeprazole 20 mg delayed release oral capsule (13 sources) Proton Pump Inhibitor esomeprazole (NexIUM) 20 mg capsule Take 1 capsule (20 mg total) by mouth. Active furosemide 40 mg oral tablet (13 sources) Loop Diuretic Start: 04-13-2023 furosemide (LASIX) 40 mg tablet Take 1 tablet (40 mg total) by mouth. 03/24/2025 Active hyoscyamine sulfate 0.125 mg sublingual tablet (11 sources) Start: 02-20-2024 hyoscyamine (Levsin) 0.125 MG SL tablet DISSOLVE 1 TABLET UNDER TONGUE BEFORE MEALS AND AT BEDTIME NEEDED FOR ABDOMINAL PAIN 02/20/2024 Active ibuprofen 600 mg oral tablet (13 sources) Nonsteroidal Anti-inflammatory Drug Start: 03-24-2025 take 1 tablet by mouth three times daily at mealtime as needed ibuprofen (MOTRIN) 600 mg tablet TAKE 1 TABLET BY MOUTH 3 TIMES A DAY WITH FOOD OR MILK NEEDED 03/24/2025 Active ibuprofen 600 MG tablet every 8 [...] Active losartan potassium 100 mg oral tablet (13 sources) Angiotensin 2 Receptor Lorena losartan (COZAAR) 100 mg tablet 1 (one) time each day at the same time. Active omeprazole 40 mg delayed release oral capsule (2 sources) Proton Pump Inhibitor Start: 04-28-2025 omeprazole (PriLOSEC) 40 mg capsule TAKE 1 CAPSULE BY MOUTH EVERY DAY 30 MINUTES BEFORE MORNING MEAL 04/28/2025 Active potassium chloride 10 meq extended release oral tablet (13 sources) Start: 05-31-2023 potassium chloride (K-TAB,KLOR-CON) 10 MEQ CR tablet TAKE 1 TABLET BY MOUTH TWICE A DAY FOR 90 DAYS 04/22/2025 Active simvastatin 20 mg oral tablet (11 sources) HMG-CoA Reductase Inhibitor Start: 04-13-2023 take [...] Problem Classification Problem Date Documented Date Episodic/Chronic Cancer of uterus (7 sources) Malignant neoplasm of endometrium of corpus uteri ; Translations: [Malignant neoplasm of endometrium] Onset: 04-30-2025 04-30-2025 Chronic Cataract (12 sources) Bilateral age-related nuclear cataracts; Translations: [Age-related nuclear cataract, bilateral] Onset: 05-21-2024 07-08-2024 Chronic Menopausal disorders (3 sources) Postmenopausal bleeding; Translations: [Postmenopausal bleeding] 02-27-2025 Chronic Nutritional deficiencies (1 source) Vitamin D deficiency, unspecified; Translations: [VITAMIN D DEFICIENCY UNSPECIFIED] Onset: 06-19-2022 Chronic Other aftercare (2 sources) Surgical follow-up; Translations: [Encounter for follow-up examination after completed treatment for conditions other than malignant neoplasm] 04-21-2025 Episodic Other screening for suspected conditions (not mental disorders or infectious disease) (1 source) Endometrium thickened; Translations: [Abnormal findings on diagnostic imaging of other specified body structures] 03-18-2025 Chronic Retinal detachments; defects; vascular occlusion; and retinopathy (11 sources) Epiretinal membrane of left eye; Translations: [Puckering of macula, left eye] Onset: 05-21-2024 05-21-2024 Chronic Unclassified (1 source) Patient encounter status 05-01-2025 Unclassified (1 source) Autogenerated Problem Onset: 05-01-2025 05-01-2025 Results Test Name Value Interpretation Reference Range Facility ALL CBC WITH AUTO DIFFon BASOPHILS ABSOLUTE AUTO 0.1 [facility] Basophils/100 WBC (Bld) 0.8 % 0.2 - 2.0 % [facility] Eosinophils/100 WBC (Bld) 0.8 % Low 0.9 - 7.0 % [facility] Erythrocyte distribution width (RBC) [Ratio] 12.8 % 11.0 - 15.0 % [facility] Hematocrit (Bld) [Volume fraction] 39.4 % 36.0 - 48.0 % [facility] Hemoglobin (Bld) [Mass/Vol] 12.8 g/dL 12.0 - 16.0 g/dL [facility] IMMATURE GRANULOCYTES ABS AUTO 0.03 [facility] Immature granulocytes/100 WBC (Bld) 0.5 % 0.0 - 0.5 % [facility] Interpretation and review of laboratory results Abnormal [facility] LYMPHOCYTES ABSOLUTE AUTO 1.1 Low [facility] Lymphocytes/100 WBC (Bld) 17.2 % Low 20.5 - 60.0 % [facility] MCH (RBC) [Entitic mass] 28.9 pg 26.7 - 34.0 pg [facility] MCHC (RBC) [Mass/Vol] 32.5 g/dL 29.9 - 35.2 g/dL [facility] MCV (RBC) [Entitic vol] 88.9 fL 81.0 - 99.0 fL [facility] MONOCYTES ABSOLUTE AUTO 0.4 [facility] Monocytes/100 WBC (Bld) 6.2 % 1.7 - 12.0 % [facility] NEUTROPHILS ABSOLUTE AUTO 4.6 [facility] Neutrophils/100 WBC (Bld) 74.5 % 43.0 - 75.0 % [facility] Platelet mean volume (Bld) [Entitic vol] 10.7 fL 9.5 - 13.5 fL [facility] TBH EO # 0.1 [facility] PLT 212 [facility] RBC 4.43 [facility] WBC 6.1 [facility] ALL BASIC METABOLIC PANELon 04-01-2025 Anion gap [Moles/Vol] 14.7 mmol/L [facility] Calcium [Mass/Vol] 9 mg/dL 8.5 - 10. 1 mg/dL [facility] Chloride [Moles/Vol] 105 mmol/L 98 - 10 7 mmol/L [facility] CO2 [Moles/Vol] 29.7 mmol/L 21.0 - 32.0 mmol/L [facility] Creatinine [Mass/Vol] 0.91 mg/dL 0.55 - 1.02 mg/dL [facility] GFR/1.73 sq M.predicted CKD-EPI (S/P/Bld) [Vol rate/Area] >60 >=60 mL/min/1.73m 2 [facility] Glucose [Mass/Vol] 112 mg/dL High 74 - 106 mg/dL [facility] Interpretation and review of laboratory results Abnormal [facility] Potassium [Moles/Vol] 4.4 mmol/L 3.5 - 5.1 mmol/L [facility] Sodium [Moles/Vol] 145 mmol/L 136 - 145 mmol/L [facility] EGFR-NON AF FRENCH >60 >=60 mL/min/1.73m 2 [facility] Urea nitrogen [Mass/Vol] 19 mg/dL High 7.0 - 18.0 mg/dL [facility] Urea nitrogen/Creatinine [Mass ratio] 20.9 mg/mg [facility] ECG 12-LEADon 04-01-2025 [place] [address] Electrocardiograph Report Signed Patient: DELMIS MTZ MR#: [id number] : 1960 Acct:[id number] Age/Sex: 64 / F ADM Date: 04/01/25 Loc: PST Attending Dr: Kurtis Valdez D.O. Ordering Physician: Kurtis Valdez D.O. 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 Measurements Intervals [place] Rate: 55 P: 40 UT: 162 QRS: 30 QRSD: 89 T: 23 QT: 414 QTc: 398 Interpretive Statements SINUS BRADYCARDIA Borderline ECG Compared to ECG 01/04/2017 20:11:26 Heart rate has decreased Electronically Signed On 04-01-2025 18:34:40 EDT by MAC ECHOLS M.D. 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 Ordering Physician: Kurtis Valdez D.O. 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 Measurements Intervals [place] Rate: 55 P: 40 UT: 162 QRS: 30 QRSD: 89 T: 23 QT: 414 QTc: 398 Interpretive Statements SINUS BRADYCARDIA Borderline ECG Compared to ECG 01/04/2017 20:11:26 Heart rate has decreased Electronically Signed On 04-01-2025 18:34:40 EDT by MAC ECHOLS M.D. 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 INSULINon 06-16-2022 Insulin 24.6 uIU/mL Normal 2.6-24.9 [facility] Comment on above: Performed By: #### I NSULIN #### [facility] [address] [address] [address] Ghassan Mena VIT D 25-OH LABCORPon 2021 Vitamin D, 25-Hydroxy 57.2 ng/mL Normal 30.0-100.0 [facility] Comment on above: Result Comment: Jany min D deficiency has been defined by the [place] [employer] and an Endocrine Society practice guideline as a level of serum 25-OH vitamin D less than 20 ng/mL (1,2). The Endocrine Society went on to further define vitamin D insufficiency as a level between 21 and 29 ng/mL (2). 1. IOM ([place] of [employer]). 2010. Dietary reference intakes for calcium and D. [place]: The National Academies Press. 2. Nadia MF, [place], Mark ABAD, et al. Evaluation, treatment, and prevention of vitamin D deficiency: an Endocrine Society clinical practice guideline. JCEM. 2010; 96(7):1911-30. Performed By: #### I DOTTIE #### [facility] [address] [place], [place] [id number] Katherin Dina CBC AUTO DIFFon 06-15-2022 BASO # 0.0 103/ul Normal 0.0-0.1 [facility] Comment on above: Performed By: #### I DOTTIE #### [facility] [address] [place], [place] [address] Katherin Dina Basophils/100 WBC (Bld) 0.7 % Normal 0.2-2.0 [facility] Comment on above: Performed By: #### I DOTTIE #### [facility] [address] [place], [place] [address] Katherin Dina EO # 0.1 103/ul Normal 0.0-0.7 [facility] Comment on above: Performed By: #### I DOTTIE #### [facility] [address] [place], [place] [id number] Katherin Dina Eosinophils/100 WBC (Bld) 1.1 % Normal 0.9-7.0 [facility] Comment on above: Performed By: #### I DOTTIE #### [facility] [address] [place] [address] Katherin Dina Erythrocyte distribution width (RBC) [Ratio] 12.8 % Normal 11.0-15.0 [facility] Comment on above: Performed By: #### I DOTTIE #### [facility] [address] [place] [address] Katherin Dina Hematocrit (Bld) [Volume fraction] 40.9 % Normal 36.0-48.0 [facility] Comment on above: Performed By: #### I DOTTIE #### [facility] [address] [place] [address] Katherin Dina Hemoglobin (Bld) [Mass/Vol] 13.3 g/dL Normal 12.0-16.0 [facility] Comment on above: Performed By: #### I DOTTIE #### [facility] [address] [place] [address] Katherin Dina IG # 0.01 10e3/ul Normal 0.00-0.03 [facility] Comment on above: Performed By: #### I DOTTIE #### [facility] [address] [place] [address] Katherin Dina IG % 0.2 % Normal 0.0-0.5 [facility] Comment on above: Performed By: #### I DOTTIE #### [facility] [address] [place] [address] Katherin Dina LYMPH # 1.0 103/ul Critically low 1.2-3.8 [facility] Comment on above: Performed By: #### I DOTTIE #### [facility] [address] [place] [address] Katherin Dina Lymphocytes/100 WBC (Bld) 18.7 % Critically low 20.5-60.0 [facility] Comment on above: Performed By: #### I DOTTIE #### [facility] [address] [place], [place] [id number] Katheriniliana Arroyo MANUAL DIFF REQ NO Normal [facility] Comment on above: Performed By: #### I DOTTIE #### [facility] [address] [place], [place] [id number] Katheriniliana Arroyo MCH (RBC) [Entitic mass] 28.8 pg Normal 26.7-34.0 [facility] Comment on above: Performed By: #### I DOTTIE #### [facility] [address] [place] [address] Katherin Arryoo MCHC (RBC) [Mass/Vol] 32.5 g/dL Normal 29.9-35.2 [facility] Comment on above: Performed By: #### I DOTTIE #### [facility] [address] [place] [address] Katheriniliana Arroyo MCV (RBC) [Entitic vol] 88.5 fL Normal 81.0-99.0 [facility] Comment on above: Performed By: #### I DOTTIE #### [facility] [address] [place] [address] Katherin Dina MONO # 0.4 103/ul Normal 0.3-0.8 [facility] Comment on above: Performed By: #### I DOTTIE #### [facility] [address] [place] [address] Katherin Dina Monocytes/100 WBC (Bld) 7.8 % Normal 1.7-12.0 [facility] Comment on above: Performed By: #### I DOTTIE #### [facility] [address] [place] [address] Katherin Dina NEUT # 3.9 103/ul Normal 1.4-6.5 [facility] Comment on above: Performed By: #### I DOTTIE #### [facility] [address] [place], [place] [id number] Katherin Dina Neutrophils/100 WBC (Bld) 71.5 % Normal 43.0-75.0 [facility] Comment on above: Performed By: #### I DOTTIE #### [facility] [address] [place] [address] Katherin Arroyo Platelet mean volume (Bld) [Entitic vol] 11.0 fL Normal 9.5-13.5 [facility] Comment on above: Performed By: #### I DOTTIE #### [facility] [address] [place] [address] Katherin Arroyo PLT 201 103/ul Normal 150-450 [facility] Comment on above: Performed By: #### I DOTTIE #### [facility] [address] [place] [address] Katherin Arroyo RBC 4.62 106/ul Normal 4.20-5.40 [facility] Comment on above: Performed By: #### I DOTTIE #### [facility] [address] [place] [address] Katherin Arroyo WBC 5.5 103/ul Normal 4.0-11.0 [facility] Comment on above: Performed By: #### I DOTTIE #### [facility] [address] [place] [address] Katherin Arroyo FREE THYROXINE INDEX T7on FTI 2.95 Normal 1.30-4.50 [facility] Comment on above: Performed By: #### L IPID, T7, TSH, CMP #### [facility] [address] [place] [address] Dr. Ghassan Mena T3U 31.0 % Normal 30.0-39.0 [facility] Comment on above: Performed By: #### L IPID, T7, TSH, CMP #### [facility] [address] [place] [address] Dr. Ghassan Mena T4 [Mass/Vol] 9.50 ug/dL Normal 4.80-13.90 [facility] Comment on above: Performed By: #### L IPID, T7, TSH, CMP #### [facility] [address] [place] [address] Dr. Ghassan Mena GLYCOHEMOGLOBIN A1Con 2021 ADA RECOMMENDATION SEE BELOW Normal [facility] Comment on above: Result Comment: ADA RECOMMENDED LIMIT 4.0 - 6.0 ADA THERAPEUTIC TARGET < 7.0 ACTION SUGGESTED > 7.0 Performed By: #### A 1C #### [facility] [address] [address] [address] Ghassan Mena Glucose [Mass/Vol] 131 mg/dL Normal [facility] Comment on above: Performed By: #### A 1C #### [facility] [address] [address] [address] Ghassan Mena HbA1c (Bld) [Mass fraction] 6.2 % Normal 4.5-6.2 [facility] Comment on above: Performed By: #### A 1C #### [facility] [address] [address] [address] Ghassan Mena IRONon 06-15-2022 Iron [Mass/Vol] 54.0 ug/dL Normal 50.0-170.0 [facility] Comment on above: Performed By: #### I DOTTIE #### [facility] [address] [place] [address] Dr. Ghassan Mena LIPID PROFILEon 06-15-2022 CHOL-HDL RATIO NORM SEE BELOW Normal [facility] Comment on above: Result Comment: 3.3 - 4.4 LOW RISK 4.4 - 7.1 AVERAGE RISK 7.1 - 11.0 MODERATE RISK >11.0 HIGH RISK Performed By: #### L IPID, T7, TSH, CMP #### [facility] [address] [place] [address] Dr. Ghassan Mena Cholesterol [Mass/Vol] 143 mg/dL Normal <=200 [facility] Comment on above: Performed By: #### L IPID, T7, TSH, CMP #### [facility] [address] [place] [address] Dr. Ghassan Mena Cholesterol in HDL [Mass/Vol] 50 mg/dL Normal 40-60 [facility] Comment on above: Performed By: #### L IPID, T7, TSH, CMP #### [facility] [address] [address] [address] Ghassan Mena Cholesterol in LDL [Mass/Vol] 76.8 mg/dL Normal [facility] Comment on above: Performed By: #### L IPID, T7, TSH, CMP #### [facility] [address] [address] [address] Ghassan Mena Cholesterol.total/Ch olesterol in HDL [Mass ratio] 2.9 {ratio} Normal [facility] Comment on above: Performed By: #### L IPID, T7, TSH, CMP #### [facility] [address] [address] [address] Ghassan Mena HDL NORMAL > or = 60 mg/dl - LO W CARDIOVASCULAR RISK <40 mg/dl - HIGH CARDIOVASCULAR RISK Normal [facility] Comment on above: Performed By: #### L IPID, T7, TSH, CMP #### [facility] [address] [address] [address] Ghassan Mena LDL CALC NORMAL SEE BELOW Normal [facility] Comment on above: Result Comment: <100 mg/dl OPTIMAL 100 - 129 mg/dl NEAR OR ABOVE OPTIMAL 130 - 159 mg/dl BORDERLINE HIGH 160 - 189 mg/dl HIGH >190 mg/dl VERY HIGH Performed By: #### L IPID, T7, TSH, CMP #### [facility] [address] [address] [address] Ghassan Mena Triglyceride [Mass/Vol] 81 mg/dL Normal <=150 [facility] Comment on above: Performed By: #### L IPID, T7, TSH, CMP #### [facility] [address] [address] [address] Ghassan Mena VLDL CALC 16.2 mg/dL Normal [facility] Comment on above: Performed By: #### L IPID, T7, TSH, CMP #### [facility] [address] [address] [address] Ghassan Mena PROF 14(COMP METB)on 022 Albumin [Mass/Vol] 3.5 g/dL Normal 3.4-5.0 [facility] Comment on above: Performed By: #### L IPID, T7, TSH, CMP #### [facility] [address] [address] [address] Ghassan Mena Albumin/Globulin [Mass ratio] 0.9 {ratio} Normal [facility] Comment on above: Performed By: #### L IPID, T7, TSH, CMP #### [facility] [address] [place] [address] Dr. Ghassan Mena ALP [Catalytic activity/Vol] 83 U/L Normal 46-116 [facility] Comment on above: Performed By: #### L IPID, T7, TSH, CMP #### [facility] [address] [place] [address] Dr. Ghassan Mena ALT [Catalytic activity/Vol] 14 U/L Normal 14-59 [facility] Comment on above: Performed By: #### L IPID, T7, TSH, CMP #### [facility] [address] [place] [address] Dr. Ghassan Mena Anion gap [Moles/Vol] 11.3 mmol/L Normal [facility] Comment on above: Performed By: #### L IPID, T7, TSH, CMP #### [facility] [address] [place] [address] Dr. Ghassan Mena AST [Catalytic activity/Vol] 11 U/L Critically low 15-37 [facility] Comment on above: Performed By: #### L IPID, T7, TSH, CMP #### [facility] [address] [place] [address] Dr. Ghassan Mena Bilirubin [Mass/Vol] 0.5 mg/dL Normal 0.2-1.0 [facility] Comment on above: Performed By: #### L IPID, T7, TSH, CMP #### [facility] [address] [place] [address] Dr. Ghassan Mena Calcium [Mass/Vol] 8.9 mg/dL Normal 8.5-10.1 [facility] Comment on above: Performed By: #### L IPID, T7, TSH, CMP #### [facility] [address] [place] [address] Dr. Ghassan Mena Chloride [Moles/Vol] 105 mmol/L Normal 98-107 [facility] Comment on above: Performed By: #### L IPID, T7, TSH, CMP #### [facility] [address] [place] [address] Dr. Ghassan Mena CO2 [Moles/Vol] 27.8 mmol/L Normal 21.0-32.0 [facility] Comment on above: Performed By: #### L IPID, T7, TSH, CMP #### [facility] [address] [address] [address] Ghassan Mena Creatinine [Mass/Vol] 0.70 mg/dL Normal 0.55-1.02 [facility] Comment on above: Performed By: #### L IPID, T7, TSH, CMP #### [facility] [address] [address] [address] Ghassan Mena EGFR-AF FRENCH >60 Normal >=60 [facility] Comment on above: Performed By: #### L IPID, T7, TSH, CMP #### [facility] [address] [place] [address] Dr. Ghassan Mena EGFR-NON AF FRENCH >60 Normal >=60 [facility] Comment on above: Performed By: #### L IPID, T7, TSH, CMP #### [facility] [address] [place] [address] Dr. Ghassan Mena Globulin (S) [Mass/Vol] 3.8 g/dL Normal [facility] Comment on above: Performed By: #### L IPID, T7, TSH, CMP #### [facility] [address] [address] [address] Ghassan Mena Glucose [Mass/Vol] 109 mg/dL Critically high 74-106 [facility] Comment on above: Performed By: #### L IPID, T7, TSH, CMP #### [facility] [address] [address] [address] Ghassan Mena Potassium [Moles/Vol] 4.1 mmol/L Normal 3.5-5.1 [facility] Comment on above: Performed By: #### L IPID, T7, TSH, CMP #### [facility] [address] [address] [address] Ghassan Mena Protein [Mass/Vol] 7.3 g/dL Normal 6.4-8.2 [facility] Comment on above: Performed By: #### L IPID, T7, TSH, CMP #### [facility] [address] [place] [address] Dr. Ghassan Mena Sodium [Moles/Vol] 140 mmol/L Normal 136-145 [facility] Comment on above: Performed By: #### L IPID, T7, TSH, CMP #### [facility] [address] [place] [address] Dr. Ghassan Mena Urea nitrogen [Mass/Vol] 16.0 mg/dL Normal 7.0-18.0 [facility] Comment on above: Performed By: #### L IPID, T7, TSH, CMP #### [facility] [address] [place] [address] Dr. Ghassan Mena Urea nitrogen/Creatinine [Mass ratio] 22.9 mg/mg Normal [facility] Comment on above: Performed By: #### L IPID, T7, TSH, CMP #### [facility] [address] [place] [address] Dr. Ghassan Mena TSHon 06-15-2022 TSH 2.630 uIU/mL Normal 0.358-3.740 [facility] Comment on above: Performed By: #### L IPID, T7, TSH, CMP #### [facility] [address] [place] [address] Dr. Ghassan Mena INSULINon 07-08-2021 Insulin 6.9 uIU/mL Normal 2.6-24.9 [facility] Comment on above: Performed By: #### I NSULIN #### [facility] [address] [place] [address] Katherin Arroyo CBC AUTO DIFFon 07-07-2021 BASO # 0.1 103/ul Normal 0.0-0.1 [facility] Comment on above: Performed By: #### I DOTTIE #### [facility] [address] [place] [address] Katherin Arroyo Basophils/100 WBC (Bld) 1.0 % Normal 0.2-2.0 [facility] Comment on above: Performed By: #### I DOTTIE #### [facility] [address] [place], [place] [id number] Katherin Dina EO # 0.1 103/ul Normal 0.0-0.7 [facility] Comment on above: Performed By: #### I DOTTIE #### [facility] [address] [place], [place] [id number] Katherin Dina Eosinophils/100 WBC (Bld) 1.2 % Normal 0.9-7.0 [facility] Comment on above: Performed By: #### I DOTTIE #### [facility] [address] [place] [address] Katherin Dina Erythrocyte distribution width (RBC) [Ratio] 13.1 % Normal 11.0-15.0 [facility] Comment on above: Performed By: #### I DOTTIE #### [facility] [address] [place] [address] Katherin Dina Hematocrit (Bld) [Volume fraction] 40.6 % Normal 36.0-48.0 [facility] Comment on above: Performed By: #### I DOTTIE #### [facility] [address] [place] [address] Katherin Dina Hemoglobin (Bld) [Mass/Vol] 13.1 g/dL Normal 12.0-16.0 [facility] Comment on above: Performed By: #### I DOTTIE #### [facility] [address] [place] [address] Katherin Dina IG # 0.01 10e3/ul Normal 0.00-0.03 [facility] Comment on above: Performed By: #### I DOTTIE #### [facility] [address] [place] [address] Katherin Dina IG % 0.2 % Normal 0.0-0.5 [facility] Comment on above: Performed By: #### I DOTTIE #### [facility] [address] [place] [address] Katherin Dina LYMPH # 1.2 103/ul Normal 1.2-3.8 [facility] Comment on above: Performed By: #### I DOTTIE #### [facility] [address] [place] [address] Katherin Dina Lymphocytes/100 WBC (Bld) 22.1 % Normal 20.5-60.0 [facility] Comment on above: Performed By: #### I DOTTIE #### [facility] [address] [place] [address] Katherin Arroyo MANUAL DIFF REQ NO Normal [facility] Comment on above: Performed By: #### I DOTTIE #### [facility] [address] [place] [address] Katherin Arroyo MCH (RBC) [Entitic mass] 29.1 pg Normal 26.7-34.0 [facility] Comment on above: Performed By: #### I DOTTIE #### [facility] [address] [place] [address] Katherin Arroyo MCHC (RBC) [Mass/Vol] 32.3 g/dL Normal 29.9-35.2 [facility] Comment on above: Performed By: #### I DOTTIE #### [facility] [address] [place] [address] Katheriniliana Arroyo MCV (RBC) [Entitic vol] 90.2 fL Normal 81.0-99.0 [facility] Comment on above: Performed By: #### I DOTTEI #### [facility] [address] [place] [address] Katherin Arroyo MONO # 0.5 103/ul Normal 0.3-0.8 [facility] Comment on above: Performed By: #### I DOTTIE #### [facility] [address] [place] [address] Katherin Arroyo Monocytes/100 WBC (Bld) 9.0 % Normal 1.7-12.0 [facility] Comment on above: Performed By: #### I DOTTIE #### [facility] [address] [place] [address] Katherin Dina NEUT # 3.5 103/ul Normal 1.4-6.5 [facility] Comment on above: Performed By: #### I DOTTIE #### [facility] [address] [place] [address] Katherin Dina Neutrophils/100 WBC (Bld) 66.5 % Normal 43.0-75.0 [facility] Comment on above: Performed By: #### I DOTTIE #### [facility] [address] [place], [place] [id number] Katherin Arroyo Platelet mean volume (Bld) [Entitic vol] 11.0 fL Normal 9.5-13.5 [facility] Comment on above: Performed By: #### I DOTTIE #### [facility] [address] [place], [place] [id number] Katheriniliana Batistaen PLT 195 103/ul Normal 150-450 [facility] Comment on above: Performed By: #### I DOTTIE #### [facility] [address] [place] [address] Katheriniliana Arroyo RBC 4.50 106/ul Normal 4.20-5.40 [facility] Comment on above: Performed By: #### I DOTTIE #### [facility] [address] [place] [address] Katheriniliana Batistaen WBC 5.2 103/ul Normal 4.0-11.0 [facility] Comment on above: Performed By: #### I DOTTIE #### [facility] [address] [place] [address] Katherin Arroyo FREE THYROXINE INDEX T7on FTI 3.77 Normal [facility] Comment on above: Performed By: #### I DOTTIE #### [facility] [address] [place] [address] Katherin Arroyo T3U 34.0 % Normal 23.5-40.5 [facility] Comment on above: Performed By: #### I DOTTIE #### [facility] [address] [place], [place] [id number] Katherin Arroyo T4 [Mass/Vol] 11.10 ug/dL Critically high 5.53-11.00 [facility] Comment on above: Performed By: #### I DOTTIE #### [facility] [address] [place], [place] [id number] Katherin Arroyo GLYCOHEMOGLOBIN A1Con 2020 ADA RECOMMENDATION ADA THERAPEUTIC TARGET 6.0 - 7.0 ACTION SUGGESTED > 7.0 Normal [facility] Comment on above: Performed By: #### A 1C #### [facility] [address], [place] [address] Katherin Dina Glucose [Mass/Vol] 123 mg/dL Normal [facility] Comment on above: Performed By: #### A 1C #### [facility] [address], [place] [address] Katherin Dina HbA1c (Bld) [Mass fraction] 5.9 % Normal <=6.0 [facility] Comment on above: Performed By: #### A 1C #### [facility] [address], [place] [address] Katherin Dina IRONon 07-07-2021 Iron [Mass/Vol] 64.0 ug/dL Normal 37.0-170.0 [facility] Comment on above: Performed By: #### I DOTTIE #### [facility] [address] [place] [address] Katherin Dina LIPID PROFILEon 07-07-2021 CHOL-HDL RATIO NORM SEE BELOW Normal [facility] Comment on above: Result Comment: 3.3 - 4.4 LOW RISK 4.4 - 7.1 AVERAGE RISK 7.1 - 11.0 MODERATE RISK >11.0 HIGH RISK Performed By: #### I DOTTIE #### [facility] [address] [place] [address] Katherin Dina Cholesterol [Mass/Vol] 137 mg/dL Normal <=200 [facility] Comment on above: Performed By: #### I DOTTIE #### [facility] [address], [place] [address] Katherin Dina Cholesterol in HDL [Mass/Vol] 52 mg/dL Normal [facility] Comment on above: Performed By: #### I DOTTIE #### [facility] [address], [place] [address] Katherin Dina Cholesterol in LDL [Mass/Vol] 72.2 mg/dL Normal [facility] Comment on above: Performed By: #### I DOTTIE #### [facility] [address], [place] [address] Katherin Dina Cholesterol.total/Ch olesterol in HDL [Mass ratio] 2.6 {ratio} Normal [facility] Comment on above: Performed By: #### I DOTTIE #### [facility] [address] [id number] Katherin Dina HDL NORMAL > or = 60 mg/dl - LO W CARDIOVASCULAR RISK <40 mg/dl - HIGH CARDIOVASCULAR RISK Normal [facility] Comment on above: Performed By: #### I DOTTIE #### [facility] [address] [place] [address] Katherin Dina LDL CALC NORMAL SEE BELOW Normal [facility] Comment on above: Result Comment: <100 mg/dl OPTIMAL 100 - 129 mg/dl NEAR OR ABOVE OPTIMAL 130 - 159 mg/dl BORDERLINE HIGH 160 - 189 mg/dl HIGH >190 mg/dl VERY HIGH Performed By: #### I DOTTIE #### [facility] [address] [place] [address] Katherin Dina Triglyceride [Mass/Vol] 64 mg/dL Normal <=150 [facility] Comment on above: Performed By: #### I DOTTIE #### [facility] [address] [place] [address] Katherin Dina VLDL CALC 12.8 mg/dL Normal [facility] Comment on above: Performed By: #### I DOTTIE #### [facility] [address] [place], [place] [id number] Katherin Arroyo PROF 14(COMP METB)on 021 Albumin [Mass/Vol] 3.7 g/dL Normal 3.5-5.0 The [facility] Comment on above: Performed By: #### I DOTTIE #### [facility] [address] [place], [place] [address] Katherin Dina Albumin/Globulin [Mass ratio] 0.9 {ratio} Normal [facility] Comment on above: Performed By: #### I DOTTIE #### [facility] [address] [place], [place] [address] Katherin Dina ALP [Catalytic activity/Vol] 85 U/L Normal 38-126 [facility] Comment on above: Performed By: #### I DOTTIE #### [facility] [address] [place] [address] Katherin Dina ALT [Catalytic activity/Vol] 19 U/L Normal 9-52 [facility] Comment on above: Performed By: #### I DOTTIE #### [facility] [address] [id number] Katherin Dina Anion gap [Moles/Vol] 10.6 mmol/L Normal [facility] Comment on above: Performed By: #### I DOTTIE #### [facility] [address] [id number] Katherin Dina AST [Catalytic activity/Vol] 24 U/L Normal 14-36 [facility] Comment on above: Performed By: #### I DOTTIE #### [facility] [address] [id number] Katherin Dina Bilirubin [Mass/Vol] 0.5 mg/dL Normal 0.2-1.3 [facility] Comment on above: Performed By: #### I DOTTIE #### [facility] [address] [place] [address] Katherin Dina Calcium [Mass/Vol] 9.2 mg/dL Normal 8.4-10.2 [facility] Comment on above: Performed By: #### I DOTTIE #### [facility] [address] [place] [address] Katherin Dina Chloride [Moles/Vol] 102 mmol/L Normal 98-107 [facility] Comment on above: Performed By: #### I DOTTIE #### [facility] [address] [place], [place] [address] Katherin Dina CO2 [Moles/Vol] 31.5 mmol/L Critically high 22.0-30.0 [facility] Comment on above: Performed By: #### I DOTTIE #### [facility] [address] [address] Katherin Dina Creatinine [Mass/Vol] 0.85 mg/dL Normal 0.52-1.04 [facility] Comment on above: Performed By: #### I DOTTIE #### [facility] [address] [id number] Katherin Dina EGFR-AF FRENCH >60 Normal >=60 [facility] Comment on above: Performed By: #### I DOTTIE #### [facility] [address] [address] Katherin Dina EGFR-NON AF FRENCH >60 Normal >=60 [facility] Comment on above: Performed By: #### I DOTTIE #### [facility] [address] [id number] Katherin Dina Globulin (S) [Mass/Vol] 4.0 g/dL Normal [facility] Comment on above: Performed By: #### I DOTTIE #### [facility] [address] [address] Katherin Dina Glucose [Mass/Vol] 99 mg/dL Normal 74-106 [facility] Comment on above: Performed By: #### I DOTTIE #### [facility] [address] [place] [address] Katherin Dina Potassium [Moles/Vol] 4.1 mmol/L Normal 3.4-5.0 [facility] Comment on above: Performed By: #### I DOTTIE #### [facility] [address] [place] [address] Katherin Dina Protein [Mass/Vol] 7.7 g/dL Normal 6.1-8.2 [facility] Comment on above: Performed By: #### I DOTTIE #### [facility] [address] [place] [address] Katherin Dina Sodium [Moles/Vol] 140 mmol/L Normal 137-145 [facility] Comment on above: Performed By: #### I DOTTIE #### [facility] [address] [place] [address] Katherin Dina Urea nitrogen [Mass/Vol] 15.0 mg/dL Normal 7.0-17.0 [facility] Comment on above: Performed By: #### I DOTTIE #### [facility] [address] [place], [place] [id number] Katherin Dina Urea nitrogen/Creatinine [Mass ratio] 17.6 mg/mg Normal [facility] Comment on above: Performed By: #### I DOTTIE #### [facility] [address] [place], [place] [id number] Katherin Dina TSHon 07-07-2021 TSH 2.729 uIU/mL Normal 0.470-4.680 [facility] Comment on above: Performed By: #### I DOTTIE #### [facility] [address], [place] [address] Katherin Arroyo TSH RANGE SEE BELOW Normal [facility] Comment on above: Result Comment: <0.3 4 UIU/ml HYPERTHYROID 0.34-5.60 UIU/ml EUTHYROID >5.60 UIU/ml HYPOTHYROID Performed By: #### I DOTTIE #### [facility] [address], [place] [address] Katherin Arroyo Vital Signs Date Time Vital Sign Value Performing Clinician Rosalva wright 04-21-2025 13:23-0400 Body mass index (BMI) [Ratio] 37.6 kg/m2 Bisi BURNHAM Work Phone: [facility] 04-21-2025 13:23-0400 Body weight 129.28 kg Bisi BURNHAM Work Phone: [facility] 04-21-2025 13:23-0400 Diastolic blood pressure 76 mm[Hg] Bisi BURNHAM Work Phone: [facility] 04-21-2025 13:23-0400 Systolic blood pressure 122 mm[Hg] Bisi BURNHAM Work Phone: [facility] 03-18-2025 15:39-0400 Body mass index (BMI) [Ratio] 38.33 kg/m2 Kurtis José Miguel DO Work Phone: [facility] 03-18-2025 15:39-0400 Body weight 131.77 kg Kurtis José Miguel DO Work Phone: [facility] 03-18-2025 15:39-0400 Diastolic blood pressure 90 mm[Hg] Kurtis José Miguel DO Work Phone: [facility] 03-18-2025 15:39-0400 Systolic blood pressure 150 mm[Hg] Kurtis José Miguel DO Work Phone: [facility] 02-27-2025 10:09-0400 Body mass index (BMI) [Ratio] 37.84 kg/m2 Kurtis José Miguel DO Work Phone: [facility] 02-27-2025 10:09-0400 Body weight 130.09 kg Kurtis José Miguel DO Work Phone: [facility] 02-27-2025 10:09-0400 Diastolic blood pressure 84 mm[Hg] Kurtis José Miguel DO Work Phone: [facility] 02-27-2025 10:09-0400 Systolic blood pressure 124 mm[Hg] Kurtis José Miguel DO Work Phone: [facility] Encounters Encounter Date Encounter Type Care Provider Facility Start: 05-01-2025 End: 05-01-2025 Orders Only Malachi Snow MD Work Phone: [facility] Comment on above: Endometrial cancer ( CMS-HCC) (Primary Dx); Preop testing Start: 05-01-2025 End: 05-01-2025 Patient encounter status Malachi Snow MD Work Phone: [facility] Start: 04-30-2025 End: 04-30-2025 Office outpatient new 60 minutes Malachi Snow MD Work Phone: [facility] Comment on above: Endometrial cancer ( [facility]-HCC) (Primary Dx); Pre-procedure lab exam Start: 04-30-2025 End: 04-30-2025 Patient encounter status Malachi Snow MD Work Phone: [facility] Start: 04-21-2025 End: 04-21-2025 Bamboo flowsheet Bisi BURNHAM Work Phone: [facility] Start: 04-21-2025 End: 04-21-2025 Bamboo flowsheet Bisi BURNHAM Work Phone: [facility] Start: 04-21-2025 End: 04-21-2025 Postop follow up visit related to original px Bisi BURNHAM Work Phone: [facility] Comment on above: Postoperative examin ation Start: 04-21-2025 End: 04-21-2025 ambulatory BISI CABEZAS Not Available Start: 04-11-2025 End: 04-11-2025 Clinisync Result Encounter [...] done Kurtis José Miguel DO Work Phone: [facility] Start: 03-18-2025 End: 03-18-2025 ambulatory KURTIS JOSÉ MIGUEL Not Available Start: 02-27-2025 End: 02-27-2025 Bamboo flowsheet Kurtis José Miguel DO Work Phone: [facility] Start: 02-27-2025 End: 02-27-2025 Bamboo flowsheet Kurtis Jos Émiguel DO Work Phone: [facility] Start: 02-27-2025 End: 02-27-2025 Office outpatient visit 15 minutes Kurtis José Miguel DO Work Phone: [facility] Comment on above: Postmenopausal bleed ing Start: 02-27-2025 End: 02-27-2025 ambulatory KURTIS JOSÉ MIGUEL Not Available Start: 07-08-2024 End: 07-08-2024 Refill Lefty Echols DO Work Phone: [facility] Comment on above: Age-related nuclear cataract of both eyes Start: 05-21-2024 End: 05-21-2024 ambulatory LEFTY ECHOLS Not Available Start: 06-19-2022 Encounter for genera l adult medical examination without abnormal findings DR RADHA LENTZ [facility] Start: 06-15-2022 End: 06-16-[address] RADHA [...] Treatment Date Care Activity Detail Author Start: 04-30-2026 Tobacco Screening Tobacco Screening [facility] Start: 07-14-2025 Influenza vaccination [facility] Start: 05-27-2025 End: 05-27-2025 Patient encounter procedure 05/27/2025 11:30 AM EDT Office Visit [facility] [address] [place] [address] Lindsay Hansen PA [address] [place] [address] [facility] Start: 05-12-2025 End: 05-12-2025 Admission to same day surgery center 05/12/2025 1:00 PM EDT - 05/12/2025 3:15 PM EDT Surgery [facility] Surgery [address] [place] [address] [place] [address] [place] [address], [address] [place] [address] DAVINCI HYSTERECTOMY SALPINGO OOPHORECTOMY [facility] Comment on above: DAVINCI HYSTERECTOMY SALPINGO OOPHORECTOMY Start: 05-12-2025 End: 05-12-2025 DAVINCI DISSECTION LYMPH NODE PELVIC SENTINEL DAVINCI DISSECTION LYMPH NODE PELVIC SENTINEL ENDOMETRIAL ADENOCARCINOMA 05/12/2025 1:00 PM EDT [facility] Start: 05-12-2025 End: 05-12-2025 DAVINCI HYSTERECTOMY SALPINGO OOPHORECTOMY DAVINCI HYSTERECTOMY SALPINGO OOPHORECTOMY ENDOMETRIAL ADENOCARCINOMA 05/12/2025 1:00 PM EDT [facility] Start: 05-12-2025 Subsequent hospital visit by physician 05/12/2025 1:00 PM EDT Hospital Encounter [facility] [address] [place] [address] Malachi Snow MD [address] [place] [address], [address] [place] [address] [facility] Start: 05-08-2025 End: 05-08-2025 Patient encounter procedure 05/08/2025 1:45 PM EDT [facility] On [address] [address] [facility] Start: 04-30-2025 End: 04-30-2026 CT Abdomen and Pelvis W contrast IV CT abdomen and pelvis with contrast Imaging STAT Endometrial cancer ([facility]-HCC) Expected: 04/30/2025, Expires: 04/30/2026 [facility] Comment on above: Expected: 04/30/2025 , Expires: 04/30/2026 Start: 04-30-2025 End: 04-30-2026 CT Chest limited W contrast IV CT chest with contrast Imaging STAT Endometrial cancer ([facility]-HCC) Expected: 04/30/2025, Expires: 04/30/2026 [facility] Work Phone: Comment on above: Expected: 04/30/2025 , Expires: 04/30/2026 Start: 04-21-2025 End: 04-21-2025 Patient encounter procedure [facility] Comment on above: Arrived Start: 03-18-2025 End: 03-18-2025 Patient encounter procedure 03/18/2025 2:40 PM EDT Consult [facility] [address] [place] [id number] Kurtis Valdez, DO [address] [place] [address] [facility] Start: 03-18-2025 End: 03-18-2025 Professional / ancillary services management 03/18/2025 2:00 PM EDT Ancillary Procedure [facility] [address] [place] [id number] [facility] Start: 02-27-2025 End: 08-29-2025 US Pelvis US Pelvis w/ TV Imaging Routine Postmenopausal bleeding Expected: 02/27/2025, Expires: 08/29/2025 [facility] Work Phone: Comment on above: Expected: 02/27/2025 , Expires: 08/29/2025 Start: 02-27-2025 End: 02-27-2025 Patient encounter procedure 02/27/2025 10:00 AM EDT Office Visit [facility] [address] [place] [id number] Kurtis Valdez, DO [address] [place] [address] Arrived [facility] Comment on above: Arrived Start: 07-22-2024 End: 07-22-2024 Patient encounter procedure 07/22/2024 7:45 AM EDT Procedure Visit [facility] Lefty Echols, DO [address] [place] [address] [facility] Start: 07-14-2024 Influenza vaccination Influenza Vacc ine (#1) [facility] Start: 2023 Fall Risk Screening Fall Risk Screen ing [facility] Start: 2023 Pneumococcal Vaccine : 65+ Years (1 of 1 - PCV) Pneumococcal Vaccine: 65+ Years (1 of 1 - PCV) [facility] Start: 2008 Pneumococcal Vaccine : 65+ Years (1 of 1 - PCV) Pneumococcal Vaccine: 65+ Years (1 of 1 - PCV) [facility] Start: 1998 Screening for malign ant neoplasm of breast Mammogram [facility] Start: 1977 DTaP,Tdap and Td Vaccines (1 - Tdap) DTaP,Tdap and Td Vaccines (1 - Tdap) [facility] Start: 1976 Adult BMI Screening Adult BMI Screen ing [facility] Start: 1970 Depression Screening Depression Scre ening [facility] Start: 1958 Screening for malign ant neoplasm of colon [facility] End: 05-01-2026 CBC W Auto Differential panel - Blood CBC with auto diff Lab Routine Endometrial cancer ([facility]) Preop testing 1 Occurrences starting 05/01/2025 until 05/01/2026 [employer] Work Phone: Comment on above: 1 Occurrences starti ng 05/01/2025 until 05/01/2026 End: 05-01-2026 Comprehensive metabolic 2000 panel - Serum or Plasma Comprehensive metabolic panel Lab Routine Endometrial cancer ([facility]) Preop testing 1 Occurrences starting 05/01/2025 until 05/01/2026 [facility] Comment on above: 1 Occurrences starti ng 05/01/2025 until 05/01/2026 End: 04-30-2026 Creatinine includes GFR, serum Creatinine includes GFR, serum Lab Routine Endometrial cancer ([facility]) Pre-procedure lab exam 1 Occurrences starting 04/30/2025 until 04/30/2026 [email or web address] Comment on above: 1 Occurrences starti ng 04/30/2025 until 04/30/2026 End: 05-01-2026 ECG 12 lead ECG 12 lead ECG Routine Endometrial cancer ([facility]) Preop testing 1 Occurrences starting 05/01/2025 until 05/01/2026 [email or web address] Comment on above: 1 Occurrences starti ng 05/01/2025 until 05/01/2026 Immunizations Immunization Date Immunization Notes Care Provider Fa sergio 10-13-2017 influenza virus vacc ine, unspecified formulation Lefyt Echols DO Work Phone: [facility] Payers Date Payer Category Payer Unknown [id number] 2023 Managed Care Other (unspecified) [facility] [place] [address] [id number] 2023 Medicare [id number] 5 2023 Private Health Insurance [id number] 5 2023 Medicare [id number] 2023 Unknown [id number] 1960 Unknown [id number] .2.593 1960 Unknown [id number] .2.593 1960 Unknown [id number] [id number] .2.9 1960 Unknown [id number] [id number] .2.1259 1960 Unknown [id number] [id number] .2.1259 1960 Unknown [id number] [id number] .2.9 1960 Unknown [id number] [id number] .2.125 Unknown [id number] Social History Date Type Detail Facility Start: 05-21-2024 Tobacco smoking stat [facility] Ex-smoker [facility] Work Phone: History of tobacco use Current smoker [facility] History of tobacco use Cigarette Smoker [facility] Start: 05-21-2024 End: 04-30-2025 Tobacco use and exposure Smokeless tobacco non-user [facility] Start: 05-21-2024 End: 04-21-2025 Alcoholic beverage intake Lifetime non-drinker (finding) [facility] Start: 12-24-2020 End: 07-20-2023 History of Social function [facility] Start: 12-24-2020 End: 07-20-2023 Tobacco use panel [facility] Start: 1960 Sex assigned at Not on file [facility] Start: 04-30-2025 Tobacco smoking stat [facility] Never smoked tobacco [facility] Start: 04-30-2025 Alcoholic beverage intake Ex-drinker (finding) [facility] Childcare Unknown [facility] Start: 06-18-2015 Sex Female (finding) [facility] Goals Date Patient Goal Desired Activity /State Personal health goal Clinical Notes 02-27-2025 to 04-30-2025 Malachi Snow MD - 04/30/2025 3:00 PM CHACHA Noel - 04/21/2025 1:20 PM Raúl Cabrera, RUI - 03/18/2025 2:40 PM Raúl Cabrera LPN - 02/27/2025 10:00 AM EDT Note Date & Type Note Facility 04-30-2025 History of Present illness Narrative Subjective: Delmis is a 65 y.o. female here for [...] node assessment. Oncology History No overview note Delmis : Denies Early satiety Denies Abdominal distention [...] JVD, supple, symmetrical, trachea midline and thyroid not enlarged, symmetric, no tenderness/mass/nodules Lungs: clear to auscultation [...] Patient Active Problem List Diagnosis Endometrial cancer ([facility]) Pre-procedure lab exam Plan: 1. The patient [...] pneumonia, myocardial infarction, stroke and even . The patient understands the risks and elects to proceed. 4. Total time spent was 66 minutes: Preparing to see the patient (e.g., review of tests) Obtaining and/or reviewing separately obtained history Performing a medically appropriate examination and/or evaluation Counseling and educating the patient/family/caregiver Ordering medications, tests, or procedures Referring and communicating with other health resident care associate (not separately reported) Documenting clinical information in the electronic or other health record Malachi Snow MD documented in this encounter [facility] 04-21-2025 History of Present illness Narrative Reason for Appointment: Patient ID: Delmis Mtz is a 65 y.o. female who presents [...] nursing note reviewed. Exam conducted with a outpatient clerk present. Vitals: Estimated body mass index is 37.6 kg/m as calculated from the following: Height as of 07/04/23: 6' 1 . Weight as of this encounter: 285 lb. BP: 122/76 No LMP recorded. ASSESSMENT & PLAN ICD-10-CM 1. Postoperative examination Z09 Post Op Follow Up: Patient presents today for a postop follow up after having a D&C Hysteroscopy performed at [facility] with Dr. Valdez. Pathology results was reviewed with the patient in great detail and all restrictions have been lifted. Patient has referral appointment scheduled for DR Bautista on 04/30/25, due to adenocarncima of the endometrium. Follow Up: Patient is to return to the office for annual exam unless needed otherwise. Documented by CHACHA Alcantara on behalf of: CHACHA Alcantara documented in this encounter [facility] 03-18-2025 History of Present illness Narrative Reason for Appointment: Patient ID: Delmis Mtz is a 64 y.o. female who presents for Pre-op Visit Patient presents today for Pre Op appointment. Patient is scheduled to undergo D&C Hysteroscopy, possible Myosure on 04/11/[address] Valdez at [facility]. MEDICATIONS Current Outpatient Medications Medication Instructions albuterol [...] nursing note reviewed. Exam conducted with a outpatient clerk present. Vitals: Estimated body mass index is [...] reviewed, and patient is to proceed to [facility] OR. Follow Up: Patient is to follow up between 1-2 weeks post operative to assess proper healing and recovery from procedure. Documented by Dina Dawson LPN on behalf of: Kurtis Valdez DO documented in this encounter [facility] 02-27-2025 History of Present illness Narrative Reason for Appointment: Patient ID: [...] nursing note reviewed. Exam conducted with a outpatient clerk present. Vitals: Estimated body mass index is [...] Kurtis Valdez DO documented in this encounter [facility] Evaluation note Diagnosis Age-related nuclear cataract of both eyes documented in this encounter [facility]* Diagnosis Postmenopausal bleeding documented in this encounter [facility]* Diagnosis Pre-op examination Postmenopausal bleeding Thickened endometrium Nonspecific (abnormal) findings on radiological and other examination of genitourinary organs documented in this encounter [facility]* Diagnosis Postoperative examination Follow-up examination, following unspecified surgery documented [facility] this encounter [facility]* Diagnosis Endometrial cancer (CMS-HCC)- Primary Malignant neoplasm of corpus uteri, except isthmus Pre-procedure lab exam Pre-procedural laboratory examination documented in this encounter [facility] Diagnosis Endometrial cancer (CMS-HCC)- Primary Malignant neoplasm of corpus uteri, except isthmus Preop testing Unspecified pre-operative examination documented in this encounter [facility] SystemInstructionsNot on filedocumented in this encounter [facility] SystemInstructionsNot on filedocumented in this encounter [facility] Summary Purpose Family History No Family History Records FoundNo Family History Records Found Advance Directives No Advanced Directives Records FoundNo Advanced Directives Records Found Additional Source Comments INFORMATION SOURCE (unrecogn ized section and content) DATE CREATED AUTHOR 06/19/2022 [facility] DATE CREATED AUTHOR AUTHOR'S ORGANIZ ATION 04/22/2025 [facility] Reason for Visit (unrecogniz ed section and content) Reason Comments Med Refill Reason Comments PMB Reason Comments Pre-op Visit Reason Comments Post-op Visit Reason Comments New Patient Specialty Diagnoses / Procedures Referred By Contact Referred To Contact Oncology / Gynecologic Oncology Diagnoses Endometrial cancer ([facility]) [facility], Department of [address] [place] [address] Phone: tel: fax: [facility], Department of [address] [place] [address] Phone: tel: fax: Referral ID Status Reason Start Date Expiration Date Visits Requested Visits Authorized [id number] Pending Review Specialty Services Required 04/18/2025 04/18/2026 1 1 Care Teams (unrecognized sec tion and content) Radio Station Manager Relationship Specialty Start Date End Date Radha Lentz MD [address] [place] [phone] PCP - General Family Medicine 07/04/23 Berta Lovelace MD [address] [place], [place] [id number] Referring Physician Optometry 05/21/24 Radio Station Manager Relationship Specialty Start Date End Date Radha Lentz MD [address] [place] [address] PCP - General Family Medicine 07/04/23 Berta Rivero OD [address] [place] [address] Referring Physician Optometry 05/21/24 Radio Station Manager Relationship Specialty Start Date End Date Radha Lentz MD [address] [place] [address] PCP - General Family Medicine 07/04/23 Berta Rivero OD [address] [place] [address] Referring Physician Optometry 05/21/24 Radio Station Manager Relationship Specialty Start Date End Date Radha Lentz MD [address] [place] [address] PCP - General Family Medicine 07/04/23 Berta Rivero OD [address] [place] [address] Referring Physician Optometry 05/21/24 Radio Station Manager Relationship Specialty Start Date End Date Radha Lentz MD [address] [place] [address] PCP - General Family Medicine 07/04/23 Berta Rivero OD [address] [place] [address] Referring Physician Optometry 05/21/24 Radio Station Manager Relationship Specialty Start Date End Date Radha Lentz MD PCP - General Family Medicine 06/24/20 Radio Station Manager Relationship Specialty Start Date End Date Radha Lentz MD PCP - General Family Medicine 06/24/20 FOR RECORDS PERTAINING TO PATIENTS WHO ARE [...] BE BASED ON THE PRIMARY CLINICAL RECORDS. [employer] provides no warranty or guarantee of the accuracy or completeness of information in this document.
--- NOTE | 2025-05-02 08:48 | CT_ITS ---
The [address] [address] Patient Name: DELMIS MTZ MRN: [id number] date: 1960 Sex: F Assigned Patient Location: LAB Current Patient Location: LAB Accession/Order Number: [id number] Exam Date: 05/02/2025 10:28 Report Date: 05/02/2025 10:50 At the request of: NON-STAFF PHYSICIAN Procedure: CT abdomen pelvis w con CT CHEST, ABDOMEN AND PELVIS WITH INTRAVENOUS CONTRAST: CLINICAL HISTORY: Recently diagnosed endometrial cancer. Lower abdominal pain. COMPARISON: None TECHNIQUE: Spiral images were obtained through the chest, abdomen and pelvis following oral and intravenous administration of 100 mL of the PICC 300. Images were reviewed using both narrow and wide window settings. This CT exam was performed using one or more following dose reduction techniques: Automated exposure control, adjustment of the mA and/or kV according to patient size, or use of iterative reconstruction technique. FINDINGS: The heart is not enlarged. There is no pericardial effusion. Minor coronary disease is seen. No aortic aneurysm or dissection is identified. There is a small amount of plaque at the aortic arch and proximal great vessels. There is no mediastinal or hilar lymphadenopathy. A moderate size hiatal hernia is seen. There is some respiratory motion. No consolidation, pleural effusion or pneumothorax is noted. There are small bilateral pulmonary nodules. A bilobed nodular area is seen adjacent to the major fissure at the left lower lobe (axial image 39) measuring 6 mm. There is a 4 - 5 mm left lower lobe nodule on axial image #62. On the right, there is a 4 - 5 mm nodular area within the right middle lobe adjacent to the minor fissure (axial image 44). There is a 3 mm right lower lobe nodule laterally on axial image 62. There is also a 3 - 4 mm nodule at the right upper lobe anteriorly on axial image 33. There is endplate spurring at the spine. No calcified gallstones are visualized. No intrahepatic masses are seen. The spleen and pancreas show no acute findings. There is slight adrenal gland thickening, greater on the left. The renal nephrograms are symmetric. No hydronephrosis is identified. There is a small right renal cyst. There is atherosclerotic plaque at the aorta and iliac arteries. There is a small supraumbilical ventral hernia containing fat. No ascites is seen. There are small mesenteric and retroperitoneal lymph nodes, largest in the periportal region with short axis dimension of 1 cm. The small bowel loops are normal caliber. There is mild stool throughout the colon. Left-sided colonic diverticula are seen. There is dextroscoliotic curvature and degenerative changes at the spine, greatest at the lower facets. Images through the pelvis show normal caliber small bowel. No appendiceal inflammation is seen. The distal colon is underdistended. There are multiple additional descending and sigmoid diverticula. No active inflammation is present. The uterus is small and slightly dextroverted. There are no adnexal cysts. The urinary bladder is poorly distended for evaluation. No ascites is seen. No pelvic lymphadenopathy is noted. CT/CT chest w con IMPRESSION: TINY SCATTERED BILATERAL PULMONARY NODULES. THERE ARE NO PRIORS TO ASSESS CHRONICITY. HIATAL HERNIA. NONSPECIFIC ABDOMINAL LYMPH NODES. NO BOWEL OR URINARY TRACT OBSTRUCTION. DIVERTICULOSIS. NO OTHER ACUTE FINDINGS. Impression dictated by: Dina Antunez M.D. 05/02/2025 10:50 AM Dictation Location: [place] [address] Electronically authenticated by: [id number] Y Date: 05/02/2025 10:50
--- NOTE | 2025-05-02 08:48 | CT_ITS ---
The [address] [address] Patient Name: DELMIS MTZ MRN: [id number] date: 1960 Sex: F Assigned Patient Location: LAB Current Patient Location: LAB Accession/Order Number: [id number] Exam Date: 05/02/2025 10:28 Report Date: 05/02/2025 10:50 At the request of: NON-STAFF PHYSICIAN Procedure: CT abdomen pelvis w con CT CHEST, ABDOMEN AND PELVIS WITH INTRAVENOUS CONTRAST: CLINICAL HISTORY: Recently diagnosed endometrial cancer. Lower abdominal pain. COMPARISON: None TECHNIQUE: Spiral images were obtained through the chest, abdomen and pelvis following oral and intravenous administration of 100 mL of the PICC 300. Images were reviewed using both narrow and wide window settings. This CT exam was performed using one or more following dose reduction techniques: Automated exposure control, adjustment of the mA and/or kV according to patient size, or use of iterative reconstruction technique. FINDINGS: The heart is not enlarged. There is no pericardial effusion. Minor coronary disease is seen. No aortic aneurysm or dissection is identified. There is a small amount of plaque at the aortic arch and proximal great vessels. There is no mediastinal or hilar lymphadenopathy. A moderate size hiatal hernia is seen. There is some respiratory motion. No consolidation, pleural effusion or pneumothorax is noted. There are small bilateral pulmonary nodules. A bilobed nodular area is seen adjacent to the major fissure at the left lower lobe (axial image 39) measuring 6 mm. There is a 4 - 5 mm left lower lobe nodule on axial image #62. On the right, there is a 4 - 5 mm nodular area within the right middle lobe adjacent to the minor fissure (axial image 44). There is a 3 mm right lower lobe nodule laterally on axial image 62. There is also a 3 - 4 mm nodule at the right upper lobe anteriorly on axial image 33. There is endplate spurring at the spine. No calcified gallstones are visualized. No intrahepatic masses are seen. The spleen and pancreas show no acute findings. There is slight adrenal gland thickening, greater on the left. The renal nephrograms are symmetric. No hydronephrosis is identified. There is a small right renal cyst. There is atherosclerotic plaque at the aorta and iliac arteries. There is a small supraumbilical ventral hernia containing fat. No ascites is seen. There are small mesenteric and retroperitoneal lymph nodes, largest in the periportal region with short axis dimension of 1 cm. The small bowel loops are normal caliber. There is mild stool throughout the colon. Left-sided colonic diverticula are seen. There is dextroscoliotic curvature and degenerative changes at the spine, greatest at the lower facets. Images through the pelvis show normal caliber small bowel. No appendiceal inflammation is seen. The distal colon is underdistended. There are multiple additional descending and sigmoid diverticula. No active inflammation is present. The uterus is small and slightly dextroverted. There are no adnexal cysts. The urinary bladder is poorly distended for evaluation. No ascites is seen. No pelvic lymphadenopathy is noted. CT/CT abdomen pelvis w con IMPRESSION: TINY SCATTERED BILATERAL PULMONARY NODULES. THERE ARE NO PRIORS TO ASSESS CHRONICITY. HIATAL HERNIA. NONSPECIFIC ABDOMINAL LYMPH NODES. NO BOWEL OR URINARY TRACT OBSTRUCTION. DIVERTICULOSIS. NO OTHER ACUTE FINDINGS. Impression dictated by: Dina Antunez M.D. 05/02/2025 10:50 AM Dictation Location: [place] [address] Electronically authenticated by: [id number] Y Date: 05/02/2025 10:50
[2025-05-02 08:55] LABS: Estimated GFR (African America >60 (>=60 mL/min/1.73m^2); Estimated GFR (Non-African Ame 59 (>=60 mL/min/1.73m^2)
== END 2025-05-02 08:36 | disposition home or self-care (01) ==
LOC: LAB 08:35
PROVIDERS: PCP Family Medicine
DX: Z01.812 Encounter for preprocedural laboratory examination (principal); C54.1 Malignant neoplasm of endometrium; R91.8 Other nonspecific abnormal finding of lung field; K44.9 Diaphragmatic hernia without obstruction or gangrene; K57.90 Diverticulosis of intestine, part unspecified, without perforation or abscess without bleeding
CPT/HCPCS: 36415; 71260; 74177; 82565; Q9967

== ENCOUNTER 2025-06-04 14:53 | Outpatient (OUT) | payer MEDICARE, OTHER, SELFPAY ==
[2025-06-04 15:49] LABS: Alanine Aminotransferase 34 U/L (14-59); Albumin Globulin Ratio 1.0; Albumin Level 3.2 g/dL (3.4-5.0); Alkaline Phosphatase 100 U/L (46-116); Anion Gap 14.9; Aspartate Amino Transferase 9 U/L (15-37); Blood Urea Nitrogen 24.0 mg/dL (7.0-18.0); Calcium 8.4 mg/dL (8.5-10.1); Carbon Dioxide 28.7 mmol/L (21.0-32.0); Chloride 104 mmol/L (98-107); Estimated GFR (African America >60 (>=60 mL/min/1.73m^2); Estimated GFR (Non-African Ame >60 (>=60 mL/min/1.73m^2); Globulin 3.3 g/dL; Glucose 178 mg/dL (74-106); Potassium 3.6 mmol/L (3.5-5.1); Sodium 144 mmol/L (136-145); Total Protein 6.5 g/dL (6.4-8.2)
== END 2025-06-04 14:54 | disposition home or self-care (01) ==
LOC: LAB 14:54
PROVIDERS: PCP Family Medicine; Visit Provider Family Medicine
DX: L27.0 Generalized skin eruption due to drugs and medicaments taken internally (principal)
CPT/HCPCS: 36415; 80053; 85652; 86140

== ENCOUNTER 2025-09-19 07:11 | Outpatient (OUT) | payer MEDICARE, OTHER, SELFPAY ==
--- OUTSIDE RECORDS SUMMARY | 2025-09-18 02:50 | XMS_ITS ---
Author Organization [facility] [place] Address [address] [place] [address] Care Team Providers Care Chiller Hand Name Role Phone Femi Lentz Primary Care Provider [phone] REASON FOR VISIT yearly labs Encounters Encounter Location Date Provider Diagnosis [facility] [address] [place] [address] 09/18/2025 Femi Lentz Essential (primary) hypertension I10 and Well adult Z00.00 Assessments Encounter Date Diagnosis (ICD Code) Assessment Notes Treatment Notes Treatment Clinical Notes Section Notes 09/18/2025 Essential (primary) hypertension (ICD-10 - I10) 09/18/2025Well adult (ICD-10 - Z00.00) Plan Of Treatment Pending Test Test Name Order Date CBC 09/18/2025 CMP - Comprehensive Metabolic Panel 0 04/2025 GLYCOHEMOGLOBIN A1C 09/18/2025 LIPID PROFILE 09/18/2025 THYROID PANEL (T4/TSH/FREE T3) Progress Notes * Naz MTZ MDOB:[birth year] (65 yo F)Acc No.[id number]:09/18/2025 Patient:?Naz MTZ :1960???Age:65 Y???Sex:FemalePhone:[phone] Address:[address] [place] [id number] Subjective: * Chief Complaints: * Y early labs * Medical History: * Surgical History: * Hospitalization/Major Diagno stic Procedure: * Medications: Objective: * Vitals: * Physical Examination: ??? Assessment: * Assessment: 1.?Essential (primary) hypertension - I10 (Primary)???2.?Well adult - Z00.00??? Plan: * Treatment: ?LAB: CMP - Comprehensive Metabolic Panel2.?Well adult?LAB: CBC ?LAB: GLYCOHEMOGLOBIN A1C ?LAB: LIPID PROFILE ?LAB: THYROID PANEL (T4/TSH/FREE T3) * Procedure Codes: * true * Date:?Generated for Printing/Faxing/eTransmitting on:?09/19/2025 07:16 AM EST
--- OUTSIDE RECORDS SUMMARY | 2025-09-19 07:15 | XMS_ITS | Clinical Summary ---
Author Organization [facility] Address [address], [address] [place] [address] Care Team Providers Care Manager Analytical Name Role Phone Andres Lentz MD Primary Care Provider [phone] Social History Tobacco UseTypesPacks/DayYears UsedDateSmoking Tobacco: Never Assessed CommentsUnknownSex and Gender InformationValueDate RecordedSex Assigned at Not on fileLegal KhdYycbyg02/10/2013 10:00 AM ESTGender IdentityNot on file Sexual OrientationNot on file Plan of Treatment Health MaintenanceDue DateLast DoneCommentsDepression Xfudnk9104/20/1970Hepatitis C udphth8304/20/1976DTaP/Tdap/Td vaccine (1 - Tdap)1977Breast cancer screen 04/20/19987583Wrlawp18/08/2509Jzlmyhohoan14/08/2003Colorectal Cancer Screen 2003FIT/FOBT: Average risk2003Fecal-DNA (Cologuard): Average risk 2003Sigmoidoscopy/CT nxoppabidoqe43/08/2003Pneumococcal 50+ years Vaccine (1 of 1 - PCV)2008DEXA (modify frequency per FRAX score)2013nnual Wellness Visit (Medicare)10/09/2023Flu vaccine (#1)5COVID-19 Vaccine (3 - season)501/06/2022, 1Respiratory Syncytial Virus (RSV) or age 60 yrs+ (1 - 1-dose 75+ series)2033Shingles vaccine Nhzoxlvxk35/01/2019, 04/15/2019Hepatitis A vaccineAged OutNo longer eligible based on patient's age to complete this topicHepatitis B vaccineAged OutNo longer eligible based on patient's age to complete this topicHib vaccineAged Out No longer eligible based on patient's age to complete this topicMeningococcal (ACWY) vaccineAged OutNo longer eligible based on patient's age to complete this topicMeningococcal B vaccineAged OutNo longer eligible based on patient's age to complete this topicPolio vaccineAged OutNo longer eligible based on patient's age [place] [id number] Care Teams Team MemberRelationshipSpecialtyStart DateEnd Andres Lentz MD [address] [facility] [place] [phone] PCP - GeneralFamily Medicine07/05/23
--- OUTSIDE RECORDS SUMMARY | 2025-09-19 07:15 | XMS_ITS | CCD ---
Author Organization [facility] Care Team Providers Care Dumpster Operator Name Role Phone DR RADHA IVERSON Admitting Unavailable KISHOR, DR GARCIA Attending Unavailable KISHOR, DR GARCIA Referring Unavailable KISHOR, DR GARCIA Primary Care Unavailable KISHOR, DR GARCIA Consulting Unavailable KISHOR, DR GARCIA Admitting Unavailable KISHOR, DR GARCIA Attending Unavailable KISHOR, DR GARCIA Primary Care Unavailable KISHOR, DR GARCIA Consulting Unavailable Radha Iverson MD Primary Care Provider [phone] Berta Lovelace MD Unavailable Berta Rivero OD Unavailable Radha Iverson MD Primary Care Provider [phone] Radha Iverson MD Primary Care Provider [phone] RADHA IVERSON Referring Unavailable STUARTY, RADHA M Primary Care Unavailable KISHOR RADHA M Referring Unavailable KISHOR RADHA M Primary Care Unavailable Unavailable Primary Care Provider Unavailabl e MALACHI SNOW Attending Unavailable KISHOR RADHA M Referring Unavailable HOY, RADHA M Primary Care Unavailable MALACHI SNOW Referring Unavailable HOY, RADHA M Primary Care Unavailable MALACHI SNOW Admitting Unavailable MALACHI SNOW Attending Unavailable HOY, RADHA M Primary Care Unavailable ARIE, MARIO Admitting Unavailable ARIE, MARIO Attending Unavailable REQUEST, IP VISUAL ASSOCIATE SERVICE Consulting Unavaila ble REQUEST, IP PHYSICAL THERAPY SERVICE Consulting Unavailable REQUEST, IP OCCUPATIONAL THERAPY SERVICE Consult ing Unavailable PROVIDER, UNKNOWN Admitting Unavailable PROVIDER, UNKNOWN Attending Unavailable LINDSAY RODRIGUEZ Attending Unavailable RADHA IVERSON Referring Unavailable KISHOR, RADHA M Primary Care Unavailable LINDSAY RODRIGUEZ Attending Unavailable KISHOR RADHA M Referring Unavailable HOY, RADHA M Primary Care Unavailable Radha Iverson MD Primary Care Provider [phone] CUCO MARIN Attending Unavailable LIBORIO MIRANDA Attending Unavailable DAVID SCHWAB Attending Unavailable CUCO MARIN Attending Unavailable BISI CABEZAS Attending Unavailable YOVANI VALDEZ Attending Unavailable YOVANI VALDEZ Attending Unavailable Karan TAMEZ Attending Unavailable Radha Iverson Primary Care Physician Allergies Allergy ClassificationReported Allergen(s)Allergy TypeDate of OnsetReaction(s) Facility (1 source)Sulfamethoxazole / TrimethoprimDrug Asvmtfg37-02-6636Fai [facility] Repository (20 sources)Penicillins; Translations: [PENICILLINS]Propensity to adverse -05-4779Q[facility] (9 sources)PenicillinsPropensity to adverse reactions to cdoh53-78-2369PfjVqnphu [facility] (16 sources)levoFLOXacin; Translations: [LEVOFLOXACIN]Drug Rccelii41-46-2789 [facility] (14 sources)Sulfamethoxazole / Trimethoprim; Translations: [SULFAMETHOXAZOLE-TRIMETHOPRIM]Drug Nyuzwma95-08-3680FkssoxjyErlBgwpms Health System (10 sources)Clindamycin; Translations: [CLINDAMYCIN]Drug Xzlnlpz46-81-4085Lbyo, Eruption of skin (disorder)[facility] (1 source)SULFAMETHOXAZOLE W-TRIMETHOPRIM; Translations: [SULFAMETHOXAZOLE W-TRIMETHOPRIM]Propensity to adverse reactions to drug (disorder)16-47-6827Zsf[facility] (1 source)levoFLOXacin; Translations: [Levaquin][facility]rug [facility]The [facility] (2 sources)Penicillin; Translations: [penicillin]Drug AllergyDiarrhea (finding) [facility] (2 sources)Sulfonamides (Antibiotic); Translations: [sulfa drugs]Propensity to adverse reactions (disorder)unknownThe [facility] Medications Current Medications MedicationDrug Class(es)DatesSig (Normalized)Sig (Original)albuterol 0.83 mg/ml inhalation solution (20 sources)beta2-Adrenergic AgonistStart: 52-42-7923zpjt 2.5 mg by inhalation every six hoursalbuterol 0.083% Inh Sharda 3 mL 2.5 mg, 3 mL, NEB, q6hr Shortness of breath or wheezing, Refill(s) 0 Start Date: 09/08/25 Status: Ordered Medication Dispense Status: Completed Total Allowed Fills: 1 Fills Dispensed: 0 albuterol (2.5 MG/3ML) 0.083% nebulizer solution Take by nebulization every 6 (six) hours if neededfor wheezing ActiveamLODIPine 5 mg oral tablet (20 sources)Dihydropyridine Calcium Channel BlockerStart: 56-30-5910gxpj 1 tablet by mouth once dailyamLODIPine 5 mg Tab 5 mg = 1 tab(s), Oral, Daily, Refills(s) 0 Start Date: 09/08/25 Status: OrderedMedication Dispense Status: Completed Total Allowed Fills: 1 Fills Dispensed: 0Start: 05-24-2023 End: 58-93-2968jqNKKPVibo (Norvasc) 5 MG tablet 05/24/2023 Activeatorvastatin 10 mg oral tablet (5 sources)HMG-CoA Reductase InhibitorStart: 03-38-3636elcy 1 tablet by mouth at bedtimeatorvastatin (LIPITOR) 10 MG tablet Take 1 Tablet by mouth at bedtime. 05/29/2025 Activeazithromycin 250 mg oral tablet (4 sources)Macrolide AntimicrobialStart: 62-17-9626dplnmbelbxhe (ZITHROMAX) 250 mg tablet 2 tabs today then 1 tab Orally daily for 5 days 02/12/2025 Active carvedilol 25 mg oral tablet (20 sources)alpha-Adrenergic Lorena, beta-Adrenergic BlockerStart: 09-08-2025 take 1 tablet by mouth twice dailycarvedilol 25 mg Tab 25 mg = 1 tab(s), Oral, BID, Refills(s) 0 Start Date: 09/08/25 Status: OrderedMedication Dispense Status: Completed Total Allowed Fills: 1 Fills Dispensed: 0Start: 98-76-7365msil 1 tablet by mouth twice dailyCARvedilol (COREG) 12.5 MG tablet Take 1 Tablet by mouth 2 times daily. 05/29/2025 ActiveStart: 04-11-2024 End: 88-16-7031omhvbeznty (Coreg) 25 MG tablet 04/11/2024 ActiveStart: 05-31-2023 End: 65-76-4343qupr 1 tablet by mouth twice daily at mealtimecarvedilol (Coreg) 12.5 MG tablet TAKE 1 TABLET BY MOUTH TWICE A DAY WITH FOOD FOR 90 DAYS 05/31/2023 03/18/2025 Discontinuedcephalexin 500 mg oral tablet (2 sources)Cephalosporin AntibacterialStart: 26-00-5184mour 2 tablets by mouth twice dailycephalexin 500 mg tablet 2 tabs Orally bid for 10 days 05/27/2025 Activecholecalciferol 0.125 mg oral capsule (20 sources)Vitamin DStart: 17-50-3109YMS D3 125 MCG (5000 UT) capsule 04/13/2023 ActiveStart: 85-12-5216vyhd 1 capsule by mouth once dailyCVS D3 125 MCG (5000 UT) capsule TAKE 1 CAPSULE BY MOUTH ONCE A DAY DIRECTED 04/13/2023 Activetake 1 tablet by mouth in the morningcholecalciferol, vitamin D3, 5,000 units tablet Take 1 tablet (5,000 Units total) by mouth in the morning. Active clindamycin 300 mg oral capsule (4 sources)Lincosamide AntibacterialStart: 05-19-2025 End: 87-28-6572cuji 1 capsule by mouth in the morning, then take 1 capsule by mouth in the evening, then take 1 capsule by mouth at bedtime, then take 1 capsule by mouth three times dailyclindamycin (Cleocin) 300 MG capsule Indications: Diabetic Foot Infection Take 1 capsule (300 mg) by mouth in the morning and 1 capsule (300 mg) in the evening and 1 capsule (300 mg) before bedtime. Do all this for 10 days. TAKE 1 PILL P.O. T.I.D. FOR 10 DAYS. 30 capsule 05/19/2025 05/29/2025 Activedocusate sodium 50 mg / sennosides, custodial 8.6 mg oral tablet (6 sources)Start: 56-90-7562dnxn 1 tablet by mouth twice dailySenexon-S oral tablet 1 tab(s), Oral, BID, Refill(s) 0 Start Date: 09/08/25 Status: Ordered Medication Dispense Status: Completed Total Allowed Fills: 1 Fills Dispensed: 0 Start: 66-09-3825rlgc 1 tablet by mouth in the morningsennosides-docusate sodium (SENNA WITH DOCUSATE SODIUM) 8.6-50 mg Take 1 tablet by mouth in the morning and 1 tablet before bedtime. 60 tablet 05/12/2025 Activeesomeprazole 20 mg delayed release oral capsule (20 sources)Proton Pump Inhibitortake 1 capsule by mouth before mealtime esomeprazole (NexIUM) [address] capsule Take 20 mg by mouth in the morning. Take before meals. Do not open capsule. Activefurosemide 40 mg oral tablet (20 sources)Loop DiureticStart: 39-61-9401epbr 1 tablet by mouth once dailyLasix 40 mg Tab 40 mg = 1 tab(s), Oral, Daily, Refills(s) 0 Start Date: 09/08/25 Status: Ordered Medication Dispense Status: Completed Total Allowed Fills: 1 Fills Dispensed: 0Start: 46-98-5207bglxeabnsj (Lasix) 40 MG tablet 04/13/2023 ActivehydrOXYzine hydrochloride 25 mg oral tablet (2 sources)AntihistamineStart: 16-10-6220owxx 1 tablet by mouth four times daily as neededhydrOXYzine (ATARAX) 25 mg tablet 1 tablet as needed Orally qid for 10 days 05/27/2025 Activehyoscyamine sulfate 0.125 mg sublingual tablet (20 sources)Start: 13-23-6675bzxapqxvtte (Levsin) 0.125 MG SL tablet 02/20/2024 Activeibuprofen 600 mg oral tablet (20 sources)Nonsteroidal Anti-inflammatory DrugStart: 81-45-5394tynb 1 tablet by mouth three times daily as needed for painibuprofen 600 mg Tab 600 mg = 1 tab(s), Oral, TID, PRN as needed for pain, Refills(s) 0 Start Date:09/08/25 Status: Ordered Medication Dispense Status: Completed Total Allowed Fills: 1 Fills Dispensed: 0Start: 34-77-3846lxwt 1 tablet by mouth every eight hours ibuprofen (MOTRIN) 800 mg tablet Take 1 tablet (800 mg total) by mouth every 8 (eight) hours. 30 tablet 05/12/2025 ActiveStart: 62-15-4816unhw 1 tablet by mouth three times daily at mealtime as neededibuprofen (MOTRIN) 600 mg tablet TAKE 1 TABLET BY MOUTH 3 TIMES A DAY WITH FOOD OR MILK NEEDED 03/24/2025 Activeibuprofen 600 MG tablet every 8 (eight) hours Activeketorolac tromethamine 5 mg/ml ophthalmic solution (1 source)Nonsteroidal Anti-inflammatory Drug, Cyclooxygenase InhibitorStart: 07-08-2024 End: 84-54-8490goyu 1 drop(s) into the eye(s) in the morningketorolac (Acular) 0.5 % ophthalmic solution Indications: Age-related nuclear cataract of both eyes ADMINISTER 1 DROP INTO AFFECTED EYE(S) IN THE MORNING AND 1 DROP BEFORE BEDTIME. 5 mL 1 07/08/2024 08/07/2024 Activelosartan potassium 100 mg oral tablet (20 sources)Angiotensin 2 Receptor BlockerStart: 77-22-6343mvuk 1 tablet by mouth once dailylosartan 100 mg Tab 100 mg = 1 tab(s), Oral, Daily, Refills(s) 0 Start Date: 09/08/25 Status: Ordered Medication Dispense Status: Completed Total Allowed Fills: 1 Fills Dispensed: 0Start: 36-82-6764raob 2 tablets by mouth once dailylosartan (COZAAR) 50 MG tablet Take 2 Tablets by mouth daily. 05/30/2025 ActiveStart: 10-44-7631ouhr 100 mg by mouth once mg, Oral, DAILY, First dose on Jovana 05/29/25 at 0900, Until Discontinuedlosartan (Cozaar) 100 MG tablet 1 (one) time each day at the same time Activeomeprazole 40 mg delayed release oral capsule (10 sources)Proton Pump InhibitorStart: 85-80-4453qmrn 1 capsule by mouth once dailyomeprazole 40 mg Cap-DR 40 mg = 1 cap(s), Oral, Daily, Refills(s) 0 Start Date: 09/08/25 Status: Ordered Medication Dispense Status: Completed Total Allowed Fills: 1 Fills Dispensed: 0Start: 75-48-3973keiiflwdah (PriLOSEC) 40 mg capsule TAKE 1 CAPSULE BY MOUTH EVERY DAY 30 MINUTES BEFORE MORNING MEAL 04/28/2025 ActiveoxyCODONE hydrochloride 5 mg oral tablet (1 source)Opioid AgonistStart: 05-12-2025 End: 36-51-7977nnqg 1 tablet by mouth every four hours as needed for pain oxyCODONE (ROXICODONE) 5 mg immediate release tablet Indications: Acute postoperative pain Take 1 tablet (5 mg total) by mouth every 4 (four) hours as needed for pain for up to 3 days. Max Daily Amount: 30 mg 12 tablet 05/12/2025 05/15/2025 ActivepredniSONE 20 mg oral tablet (8 sources)Start: 05-30-2025 End: 71-69-3575dlps 3 tablets by mouth once daily, then take 2 tablets by mouth once daily, then take 1 tablet by mouth once daily, then take 0.5 tablet by mouth once dailypredniSONE (DELTASONE) 20 MG tablet Take 3 Tablets by mouth daily for 4 days, THEN 2 Tablets daily for 5 days, THEN 1 Tablet daily for 5 days, THEN 0.5 Tablets daily for 5 days. 29 Tablet 05/30/2025 06/18/2025 Active Start: 05-30-2025 End: 53-61-5209vtdqxeHSMS (DELTASONE) tabletStart: 05-29-2025 End: 0428elpq 60 mg by mouth once daily60 mg, Oral, DAILY, First dose on Jovana 05/29/25 at 1030, Until DiscontinuedStart: 21-85-5423tzucuoKGRE (STERAPRED DS) 10 mg tablet pack 5 tabs per day for 3 days, 4 tabs per day for 3 ays, 3 t abs perday for 3 days, 2 tabs per day for 3 days, 1 tab a day for 3 days, 1/2 tab a day for 4 days Orally Once a day for 19 days 05/27/2025 Activesimvastatin 20 mg oral tablet (20 sources)HMG-CoA Reductase InhibitorStart: 01-57-6484ybax 1 tablet by mouth once daily in the eveningsimvastatin 20 mg Tab 20 mg = 1 tab(s), Oral, qPM, Refills(s) 0 Start Date: 09/08/25 Status: Ordered Medication Dispense Status: Completed Total Allowed Fills: 1 Fills Dispensed: 0Start: 52-15-8563lcvi 1 tablet by mouth once dailysimvastatin (Zocor) 20 MG tablet Take 20 mg by mouth Daily 04/13/2023 Activetriamcinolone acetonide 1 mg/ml topical cream (5 sources)CorticosteroidStart: 79-89-4715cklwgkativbsg 0.1 % cream Apply topically 2 times daily. Apply thin layer to affected area. 454 g 05/29/2025 2:02 PM EDT 05/29/2025 ActiveStart: 33-40-3617jbmxz 1 dose topically twice daily Topical, 2 TIMES DAILY, First dose on Mon05/29/25 at 1030, Until Discontinued Completed/Discontinued Medications MedicationDrug Class(es)DatesSig (Normalized)Sig (Original)acetaminophen 325 mg oral tablet (6 sources)Start: 83-95-5165432 mg, Oral, EVERY 4 HOURS PRN, Starting on Mon05/28/25 at 2154, Until Discontinued, Mild Pain (pain score 1,2,3)Start: 38-55-2884vnlw 2 tablets by mouth every eight hoursacetaminophen (TYLENOL EXTRA STRENGTH) 500 mg tablet Take 2 tablets (1,000 mg total) by mouth every8 (eight) hours. 30 tablet 05/12/2025 ActivediphenhydrAMINE hydrochloride 25 mg oral capsule (1 source)Histamine-1 Receptor AntagonistStart: 05-28-2025 End: 95-08-5170zeex 1 dose by mouth once25 mg, Oral, Once, 1 dose, On Mon05/28/25 at 1410Start: 05-28-2025 End: 86-35-5194grnh 1 dose by mouth once25 mg, Oral, Once, 1 dose, [place] Mon05/28/25 [place] [address].4 ml enoxaparin sodium 100 mg/ml prefilled syringe (1 source)Low Molecular Weight HeparinStart: 08-19-6928rvrdip 40 mg by subcutaneous injection twice daily40 mg, Subcutaneous, 2 times daily, First dose on Mon05/28/25 at 2230, Until Discontinuedondansetron 4 mg disintegrating oral tablet (5 sources)Serotonin-3 Receptor AntagonistStart: 02-20-2024 End: 62-31-5139rlzxdjklhfp ODT (Zofran-ODT) 4 MG disintegrating tablet DISSOLVE 1 TABLET ON THE TONGUE EVERY 6 HOURS NEEDED FOR NAUSEA FOR 3 DAYS 02/20/2024 03/18/2025 Discontinuedpantoprazole 40 mg delayed release oral tablet (1 source)Proton Pump InhibitorStart: 76-84-4265wlqu 40 mg by mouth once daily 30 minutes before rtojdygwi60 mg, Oral, DAILY 30 MIN BEFORE BREAKFAST, First dose on Mon05/29/25 at 0830, Until Discontinuedpolyethylene glycol 3350 30751 mg powder for oral solution (1 source)Osmotic LaxativeStart: g, Oral, DAILY, First dose on Mon05/28/25 at 2226, Until Discontinuedpotassium chloride 10 meq oral tablet (20 sources)Start: 73-13-0882nmpd 1 tablet by mouth twice dailypotassium chloride 10 mEq ER Tab 10 mEq = 1 tab(s), Oral, BID, Refills(s) 0 Start Date: 09/08/25 Status: Ordered Medication Dispense Status: Completed Total Allowed Fills: 1 Fills Dispensed: 0Start: 39-36-0716ueeg 1 tablet by mouth in the morningpotassium chloride CR (Klor-Con) 10 MEQ ER tablet Take 10 mEq by mouth in the morning and 10 mEq before bedtime. 05/31/2023 Activesennosides, custodial 8.6 mg oral tablet (1 source)Start: 41-02-8932vzmf 8.6 mg by mouth once daily8.6 mg, Oral, DAILY, First dose on Mon05/28/25 at 2226, Until DiscontinuedVitamin D 50,000 intl units (1.25 mg) oral capsule (1 source)Start: 90-32-7421bdut 1 capsule by mouth once dailyVitamin D 50,000 intl units (1.25 mg) oral capsule 50,000 International_Unit = 1 cap(s), Oral, Daily, Refills(s) 0 Start Date: 09/08/25 Status: Ordered Medication Dispense Status: Completed Total Allowed Fills: 1 Fills Dispensed: 0 Problems Problem ClassificationProblemDateDocumented DateEpisodic/ChronicCancer of uterus (18 sources)Malignant neoplasm of endometrium of corpus uteri ; Translations: [Malignant neoplasm of endometrium]Onset: 533198-89-4302SwhqkqeCtupqxff (20 sources)Bilateral age-related nuclear cataracts; Translations: [Age-related nuclear cataract, bilateral]Onset: 510657-70-3121SzbsdqtHqgnibc obstructive pulmonary disease and bronchiectasis (1 source)Pulmonary nsceprvhh86-83-3569CyfspitChspkalbp of lipid metabolism (1 source)Ojusefivaiwayl94-10-3184EubmvbjU Codes: Adverse effects of medical drugs (1 source)Adverse reaction to drug; Translations: [Adverse effect of unspecified drugs, medicaments and biological substances, initial encounter]05-28-2025 EpisodicEsophageal disorders (1 source)Gastroesophageal reflux nsstgjo36-84-1597TzexqwmFlwxarsgd hypertension (1 source)Essential dbleinmfbgsl03-34-6520QflcdkeFtoilojbct disorders (3 sources)Postmenopausal bleeding; Translations: [Postmenopausal bleeding] 47-67-5860VlluzrlTceiqla (1 source)Pain in toe; Translations: [Tinea unguium]45-52-5653Ccfvzhnd Nutritional deficiencies (1 source)Vitamin D deficiency, unspecified; Translations: [VITAMIN D DEFICIENCY UNSPECIFIED]Onset: 96-63-3508NnqeebxDqugj aftercare (2 sources)Surgical follow-up; Translations: [Encounter for follow-up examination after completed treatment for conditions other than malignant neoplasm]74-74-1500WvagextqDzkja aftercare (2 sources)Postoperative visit; Translations: [Encounter for other specified surgical aftercare]45-32-5279SryliozvMengm aftercare (1 source)Encounter for other specified surgical aftercare; Translations: [Encounter for other specified surgical aftercare]Onset: 45-83-0317CfzttygsWyliv connective tissue disease (2 sources)Pain of toe of left foot; Translations: [Pain in left toe(s)] 71-46-4663TnsghgobOgvce connective tissue disease (1 source)Disorder of musculoskeletal system; Translations: [Other specified disorders of synovium, left ankle and foot]50-50-6152CtsslndzAhkvh nervous system disorders (1 source)Other acute postprocedural pain; Translations: [Other acute postprocedural pain]Onset: 90-17-1275CnksydpdAsuhw nutritional; endocrine; and metabolic disorders (1 source)Obese class JGS88-05-0941GeoqetbVwgjk screening for suspected conditions (not mental disorders or infectious disease) (1 source)Endometrium thickened; Translations: [Abnormal findings on diagnostic imaging of other specified body structures]52-31-8566FcvmujdPywdc screening for suspected conditions (not mental disorders or infectious disease) (2 sources)Electrocardiogram abnormal; Translations: [Abnormal electrocardiogram [ECG] [EKG]]Onset: 716321-50-6302AagrglqmVylfz skin disorders (4 sources)Ingrowing nail; Translations: [Ingrowing nail]36-27-1739QmopqisxGwqvi skin disorders (8 sources)Eruption; Translations: [Rash and other nonspecific skin eruption] Onset: 979696-69-7842ZujdelniLegcvreb codes; unclassified (8 sources)Obstructive sleep apnea syndrome; Translations: [Obstructive sleep apnea (adult) (pediatric)]Onset: 495331-74-6401WiksehsTyvttzsp codes; unclassified (1 source)Pain, unspecified; Translations: [Pain, unspecified]Onset: 05-25-2025 EpisodicResidual codes; unclassified (1 source)Tobacco uotf91-13-1891QwabfbsxZnihffo detachments; defects; vascular occlusion; and retinopathy (20 sources)Epiretinal membrane of left eye; Translations: [Puckering of macula, left eye]Onset: 867095-55-5345XhbnsayGnhe and subcutaneous tissue infections (4 sources)Abscess of toe of left foot; Translations: [Cutaneous abscess of left foot]52-84-4303VfnlypbmZcemqtsubgsi (2 sources)Patient encounter -90-4101Oxumotfudsvp (7 sources)Autogenerated ProblemOnset: 332217-92-8164Lvgcbrsvanyl (1 source)ENDOMETRIAL ADENOCARCINOMAOnset: 67-02-1037Hcymhfjqxbqj (1 source)New PatientOnset: 04-30-2025 Results Test NameValueInterpretationReference RangeFacilityTelephone Encounteron 23-43-4398Wzxgqqawwwyqj Authentication Interface Message TextDiscussed with pt inpatient.[facility] SystemTranscription Authentication Interface Message TextSituation: Patient returning missed call/Ref 99 Background: N/A Assessment: N/A Recommendation: Read message to pt; verbalized understanding. Pt states her discharge instructions say she is supposed to take each dose of prednisone for 5 days instead of the instructions on the bottle. Advised pt to follow instructions on bottle and RN will send this to provider to further clarify. This is from D/C paper from ED visit: Clipped from Script:NormalBarn[facility] SystemTranscription Authentication Interface Message TextCalled pt, no answer, lm on to return call to [phone]. See providers note.NormalBarnesville HospitaluFaber SystemTranscription Cinsayation Interface Message Apryl Yang MD to Me (Selected Message) 05/30/25 10:56 AM You can let her know that I reordered the prescription with the right amount of tablets - please tell her that if she already filled the first prescription with the 10 tablets to NOT take any extra tablets and to only take the amount needed to complete the written protocNormMetroHealth [facility] SystemTranscription Authentication Interface Message TextSituation: pt returning call, following up on message sent yesterday regarding clarification on the following prescription: Medication Name: predniSONE (DELTASONE) 20 MG tablet Dosage: 20 mg Dosage form: tablet Directions: Take 3 Tablets by mouth daily for 4 days, THEN 2 Tablets daily for 5 days, THEN 1 Tablet daily for 5 days, THEN 0.5 Tablets daily for 5 days. Quantity: 10 Reason for call: patient needs clarification on the directions, only 10 tablets were prescribed. Please resend a new prescription with the appropriate amount or Please contact the patient to discuss this issue as well as a plan of action. Background: n/a Assessment: n/a Recommendation: please follow up with pt. Advised pt to follow up with pcp regarding prescriptionNormSamaritan North Health Centere [facility] SystemBASIC METABOLIC PANELon 91-30-0054Hyfjw gap [Moles/Vol]15 mmol/DZhnydz73-23Vdo [facility] SystemComment on above:Performed By: #### ROBY CBCDSAT #### [facility] [address] [place] [address], [phone] [Mass/Vol]8.9 mg/dLNormal8.6-10.3The [facility] SystemComment on above:Performed By: #### ROBY CBCDSAT #### [facility] [address] [place] [address], [phone] [Moles/Vol]106 mmol/ZCqzuqo22-439Egk [facility] SystemComment on above:Performed By: #### ROBY CBCDSAT #### [facility] [address] [place] [address], [phone] [Moles/Vol]23 mmol/SUjrcbb30-69Kab [facility] SystemComment on above:Performed By: ###LUCIE COX #### [facility] [address] [place] [address], [phone] [Mass/Vol]0.94 mg/dLNormal0.60-1.20The [facility] SystemComment on above:Performed By: ###YANDEL CXOAT #### [facility] [address] [place] [address], [phone] GFR (CKD-EPI)67 mL/min/1.73sqmNormal>=60The [facility] Center[facility] SystemComment on above:Result Comment: 2020 CKD EPI Equation using Creatinine without Race Comment: Estimated glomerular filtration rate (eGFR) is calculated without a race coefficient. Values should be interpreted in the context of the patient's full clinical presentation. Reference: 1. Grey C, Ryland M, Krista GUSTAFSON, et al.. A Unifying Approach for GFR Estimation: Recommendations of the NKF-ASN Task Force on Reassessing the Inclusion of Race in Diagnosing Kidney Disease. AmericanJournal of Kidney Diseases 2021;79(2):268-88.e1. 2. N Engl J Med 1 Vol. 385 Issue 19 Pages 7680-6247Performed By: ###LUCIE COX #### [facility] [address] [place] [address], [phone] [Mass/Vol]130 mg/tFFfsx12-973Ayb [facility]ro[facility] SystemComment on above:Performed By: ###LUCIE COX #### [facility] [address] [place] [address], [phone] [Moles/Vol]4.2 mmol/LNormal3.5-5.0The [facility] Center[facility] SystemComment on above:Performed By: ###LUCIE COX #### [facility] [address] [place] [address], [phone] [Moles/Vol]140 mmol/NHjfegt397-274Ekh [facility] SystemComment on above:Performed By: #### ROBY, CBCDSAT #### [facility] [address] [place], [phone] nitrogen [Mass/Vol]23 mg/dLNormal7-25The [facility] SystemComment on above:Performed By: #### ROBY, CBCDSAT #### [facility] [address] [place], [address]Meyxk metabolic 2000 panelon 61-53-2121Gijem gap [Moles/Vol]15 mmol/L10 - 20MetroHealthCalcium [Mass/Vol]8.9 mg/dL8.6 - 10.3 mg/dLMetroHealthChloride [Moles/Vol]106 mmol/L98 - 107 mmol/LMetroHealthCO2 [Moles/Vol]23 mmol/L21 - 31 mmol/LMetroHealthCreatinine [Mass/Vol]0.94 mg/dL0.60 - 1.20 mg/dLMetroHealthGFR/1.73 sq M.predicted CKD-EPI (S/P/Bld) [Vol rate/Area]67- PINFMetroHealthComment on above:2020 CKD EPI Equation using Creatinine without Race Comment: Estimated glomerular filtration rate (eGFR) is calculated without a race coefficient. Values should be interpreted in the context of the patient's full clinical presentation. Reference: 1. Grey C, Ryland M, Krista DC, et al.. A Unifying Approach for GFR Estimation: Recommendations of the NKF-ASN Task Force on Reassessing the Inclusion of Race in Diagnosing Kidney Disease. AmericanJournal of Kidney Diseases 202;79(2):268-88.e1. 2. N Engl J Med 1 Vol. 385 Issue 19 Pages 5899-3910 Glucose [Mass/Vol]130 mg/bEPple51 - 109 mg/dLMetroHealthPotassium [Moles/Vol]4.2 mmol/L3.5 - 5.0 mmol/LMetroHealthSodium [Moles/Vol]140 mmol/L136 - 145 mmol/L MetroHealthUrea nitrogen [Mass/Vol]23 mg/dL7 - 25 mg/dLMetroHealthCBC WITH DIFFERENTIALOrdered By: Missy Burgess on 05-24-7010Abyuhtyjguc distribution width (RBC) [Ratio]13.9 %11.5 - 14.5 %MetroHealthHematocrit (Bld) [Volume fraction]36.4 %36.0 - 46.0 %MetroHealthHemoglobin (Bld) [Mass/Vol]12.2 g/dL12.0 - 15.0 g/dLMetroHealthMCH (RBC) [Entitic mass]28.8 pg26.0 - 34.0 pgMetroHealth MCHC (RBC) [Mass/Vol]33.5 g/dL32.0 - 35.9 g/dLMetroHealthMCV (RBC) [Entitic vol] 86 fL80 - 100 fLMetroHealthPlatelet mean volume (Bld) [Entitic vol]9.4 fL7.5 - 11.2 fLMetroHealthPlatelets (Bld) [#/Vol]196 10*3/uL150 - 400 K/uLMetroHealthRBC (Bld) [#/Vol]4.23 10*6/uLMetroHealthWBC (Bld) [#/Vol]19.4 10*3/uLHigh4.5 - 11.5 K/uLMetroHealthCBC WITH DIFFERENTIALon 00-98-5872Vhkyldgewik distribution width (RBC) [Ratio]13.9 %Kbujsn87.5-14.5The [facility] SystemComment on above: Performed By: #### ROBY, CBCDSAT #### [facility] [address] [place] [address], [address]Cbnmqeomjd (Bld) [Volume fraction]36.4 %Zilfzy37.0-46.0 The [facility] SystemComment on above:Performed By: #### ROBY, CBCDSAT #### [facility] [address] [place], [address]Cextfjbrps (Bld) [Mass/Vol]12.2 g/pYEnqxhw24.0-15.0The [facility] SystemComment on above:Performed By: #### ROBY, CBCDSAT #### [facility] [address] [place], [address]ZGQ (RBC) [Entitic mass]28.8 eoNalrwt75.0-34.0The [facility] SystemComment on above:Performed By: ###LUCIE COX #### S [facility] [address] [place] [address], [address]TWFB (RBC) [Mass/Vol]33.5 g/sYWakejx32.0-35.9The [facility] SystemComment on above:Performed By: ###YANDEL COXAT #### S [facility] [address] [place] [address], [address]AQO (RBC) [Entitic vol]86 kTQieglg97-335Ovd [facility] SystemComment on above:Performed By: ###YANDEL COXAT #### [facility] [address] [place] [address], [address]Njewfhzs mean volume (Bld) [Entitic vol]9.4 fLNormal 7.5-11.2The [facility] CenterroHealth SystemComment on above:Performed By: ###YANDEL COXAT #### [facility] [address] [place] [address], [address]Oymrvwivp (Bld) [#/Vol]196 10*3/lPGjdsuw210-194Qpo [facility] SystemComment on above:Performed By: ###YANDEL COXAT #### [facility] [address] [place] [address], [address]VEH (Bld) [#/Vol]4.23 10*6/uLNormal4.00-5.20The [facility] CenterroHealth SystemComment on above:Performed By: ###YANDEL COXAT #### [facility] [address] [place] [address], [address]ZPD (Bld) [#/Vol]19.4 10*3/uLHigh4.5-11.5The [facility] SystemComment on above:Performed By: ###YANDEL COXAT #### [facility] [address] [place] [address], [address]XXSNSYOV KINASEon 27-56-6502IL [Catalytic activity/Vol] 96 U/LMetroHealthCK [Catalytic activity/Vol]96 U/IBnuomy61-613Fyc [facility] SystemComment on above:Performed By: #### LUCIE CA #### [facility] [address] [place] [address], [address]HTH 12 LEAD - PERFORMon 83-63-5985CmnpufbveIhnnah sinus rhythm with sinus arrhythmia Low voltage QRS, consider pulmonary disease, pericardial effusion, or normal variant Nonspecific ST and T wave abnormality Abnormal ECG No previous ECGs available Confirmed by MARCELLA SHARIF ([id number]) on 05/29/2025 8:17:29 AM MetroHealthP wave Atrium by CFM96RTRXbfwkKgmsiyM wave amxs38rblttknCwvaiIeinbfI- R Ydvsdxzn715 msMetroHealthQ-T mhqaveqk904 msMetroHealthQ-T interval corrected 419 msMetroHealthQRS nmof59ykgqkbdZrvckDppxmpQXS zszbcyaz10 msMetroHealthT wave eobz55fypyebvQhwwzRuuecfKsaojEdlipnTZF Ab IA Qn (S)on 42-74-5522BZO Ab Ql (S) Non-ReactiveNonreactiveMetroHealthInterpretation and review of laboratory resultsNormalMetroHealthMetroHealthHEPATIC FUNCTION PANELon 92-07-0570Ooozpzb [Mass/Vol]3.7 g/dL3.5 - 5.7 g/dLMetroHealthALP [Catalytic activity/Vol]99 U/L MetroHealthALT [Catalytic activity/Vol]61 U/LHighMetroHealthAST [Catalytic activity/Vol]19 U/LMetroHealthBilirubin [Mass/Vol]0.6 mg/dL0.3 - 1.0 mg/dL MetroHealthBilirubin.direct [Mass/Vol]0.12 mg/dL0.03 - 0.18 mg/dLMetroHealth Protein [Mass/Vol]6 g/dL6.0 - 8.3 g/dLMetroHealthAlbumin [Mass/Vol]3.7 g/dL Normal3.5-5.7The [facility] SystemComment on above:Performed By: #### LUCIE CA #### [facility] [address] [place] [address], [address]YLE13 IU/GVktxya88-321Vsr [facility] CenterroHealth SystemComment on above:Performed By: ###LUCIE COX #### S [facility] [address] [place] [address], [address]OCJ [Catalytic activity/Vol]61 U/LHigh7-52The [facility] CenterroHealth SystemComment on above:Performed By: #### LUCIE CA #### [facility] [address] [place] [address], [address]KTN [Catalytic activity/Vol]19 U/SLreiok57-71Exr [facility] CenterroHealth SystemComment on above:Performed By: #### LUCIE CA #### [facility] [address] [place] [address], [address]Eiopifuoc [Mass/Vol]0.6 mg/dLNormal0.3-1.0The [facility] CenterroHealth SystemComment on above:Performed By: #### LUCIE CA #### [facility] [address] [place] [address], [address]Ttoinlume.direct [Mass/Vol]0.12 mg/dLNormal0.03-0.18The [facility] CenterroHealth SystemComment on above:Performed By: ###LUCIE COX #### [facility] [address] [place] [address], [address]Tfegvmm [Mass/Vol]6.0 g/dLNormal6.0-8.3The [facility] CenterroHealth SystemComment on above:Performed By: #### LUCIE CA #### [facility] [address] [place] [address], [address]AWXLGJFUJ B CORE ANTIBODYon 81-75-5306BKS core Ab Ql (S)Non-ReactiveNonreactiveMetroHealthInterpretation and review of laboratory resultsNormalMetroHealthMetroHealthCORENon-ReactiveNormalNonreactiveThe [facility] SystemComment on above:Performed By: #### LUCIE CA #### S [facility] [address] [place] [address], [address]SLZERBOSL B SURFACE ANTIGENon 30-13-4435DZJ surface Ag Ql (S)Ooa-FgsjopksRcb-RdzglwalGbveuPrtedyNqhqnlieysgldn and review of laboratory miuosljYmpkwpTpcpaFktltrCursbRfmvmgQCKFEGdr-XhirluzgYglqmmSai-QqxuidfzIxg [facility] CenterroGeorgetown [facility] SystemComment on above:Performed By: #### LUCIE CA #### [facility] [address] [place], [address]QRGRWZWGD C ANTIBODYon 52-05-3867CSAPvh-ReactiveNormal NonreactiveThe [facility] SystemComment on above:Performed By: #### HCV #### [facility] [address] [place], [address]JZBQZV DIFF AND MORPHon 63-13-0071XIQ15.23 K/uL MetroHealthBand form neutrophils/100 WBC (Bld)1 %NINF - 10 %MetroHealthBands # 0.19 K/uLHighNINF - 0.01 K/uLMetroHealthCells Counted Total (Bld) [#]100 {cells} MetroHealthLymphocytes (Bld) [#/Vol]0.78 10*3/uLLow1.00 - 4.80 K/uLMetroHealth Lymphocytes/100 WBC (Bld)4 %Low24.0 - 44.0 %MetroHealthMonocytes (Bld) [#/Vol] 0.39 10*3/uL0.20 - 1.00 K/uLMetroHealthMonocytes/100 WBC (Bld)2 %2.0 - 11.0 % MetroHealthNeutrophils (Bld) [#/Vol]18.04 10*3/uLHigh1.50 - 8.00 K/uLMetroHealth Neutrophils/100 WBC (Bld)93 %High31.0 - 76.0 %MetroHealthRBC morphology finding Nom (Bld)VgxmvaLlxfhGqwknyTGC79.23 K/uLNormalThe [facility] SystemComment on above:Performed By: #### YANDEL CAAT #### S [facility] [address] [place], [address]KVGNH % BY MANUAL COUNT1 %Normal<=10The [facility] SystemComment on above:Performed By: #### YANDEL CAAT #### S [facility] [address] [place] [address], [address]ODQMX ABS BY MANUAL COUNT0.19 K/uLHigh<0.01The [facility] SystemComment on above:Performed By: #### ROBY CBCZEKEAT #### S [facility] [address] [place] [address], [address]DCVSR COUNTED TOTAL # IN FXHWB123ByikqqVtt [facility] SystemComment on above:Performed By: #### ROBY CBCDSAT #### S [facility] [address] [place] [address], [address]DFSCYHCGACN % BY MANUAL COUNT4.0 %Low24.0-44.0The [facility] SystemComment on above:Performed By: #### ROBY CBCDSAT #### [facility] [address] [place] [address], [address]NVIHLBJRLMK ABS BY MANUAL COUNT0.78 K/uLLow1.00-4.80The [facility] SystemComment on above:Performed By: #### ROBY CBCDSAT #### [facility] [address] [place] [address], [address]XUDWZNTCL % BY MANUAL COUNT2.0 %Normal2.0-11.0The [facility] SystemComment on above:Performed By: #### ROBY CBCDSAT #### [facility] [address] [place] [address], [address]KSZTYWYQM ABS BY MANUAL COUNT0.39 K/uLNormal0.20-1.00 The [facility] SystemComment on above:Performed By: #### ROBY CBCDSAT #### [facility] [address] [place] [address], [address]DJWVUHMOFVT % BY MANUAL COUNT93.0 %High31.0-76.0The [facility] SystemComment on above:Performed By: ###Marni CA CBCDSAT #### S [facility] [address] [place] [address], [address]NLKAGBHUORF ABS BY MANUAL COUNT18.04 K/uLHigh1.50-8.00 The [facility] SystemComment on above:Performed By: #### ROBY, CBCDSAT #### S [facility] [address] [place] [address], [address]TEZ MORPHOLOGYNormalNormalThe [facility] SystemComment on above:Performed By: #### ROBY, CBCDSAT #### S [facility] [address] [place] [address], [address]So Panel InformationOrdered By: Missy Burgess on 56-03-2868Jskxbrhwghbmec and review of laboratory resultsAbnormalMetroHealth MetroHealthNo Panel Informationon 09-48-2853Hquyyziilgakbx and review of laboratory resultsAbnormalMetroHealthInterpretation and review of laboratory resultsNormalMetroHealthMetroHealthPROTHROMBIN TIME AND INRon 56-90-4573VAH Coag (PPP) [Relative time]1.31 {INR}High0.90 - 1.10MetroHealthInterpretation and review of laboratory resultsAbnormalMetroHealthPT Coag (PPP) [Time]14.7 sHigh MetroHealthMetroHealthINR Coag (PPP) [Relative time]1.31 {INR}High0.90-1.10The [facility] SystemComment on above:Performed By: #### PT #### S [facility] [address] [place] [address], [address]WC Coag (PPP) [Time]14.7 sHigh9.7-12.9The [facility] SystemComment on above:Performed By: #### PT #### S [facility] [address] [place] [address], [address]Aivjwhkl Noteson 79-46-2670Bapiqcseyhxnu Authentication Interface Message TextStepdown Unit ATTENDING NOTE MARIO ENGEL MD - PIN [id number] 65 year old female admitted 05/28/2025 with generalized pruritic rash that started on 05/24 days after starting Clindamycin abx ppx (05/19) s/p toe procedure and IV ancef for a hysterectomy (endometrial adenocarcinoma, 05/12/25). PMHx: COPD, GERD, HTN, HLD, Endometrial cancer Respiratory Support: O2 Device: Room air Problems/Plans: 1) diffuse rash - biopsie by Derm consistent with drug eruption. Recommended systemic steroids and topical steroids. Most likely related to recent clindamycin - recommended patient get an allergy consult to evaluate desensitizing to medications 2) UTI - present on admission. Asymptomatic now. Chose not to treat with antibiotics at this time. 3) abnromal oximetry, +snoring, class 3 obesity - recommended sleep study. Patient declines Preferred Language: Portuguese I saw and evaluated the patient. I personally obtained the loredo and critical portions of the history and physical examination. I reviewed Dr. Condon's documentation and discussed the patient with the resident. I agree with the resident's medical decision making as documented in the resident's note. I spent 33 minutes on discharge planning for this patient today, including talking to patient's clinic physicians to arrange for follow-up, arranging for follow-up appointments, arranging for follow-up studies, and educating patient on medical and safety issues at home Mario Engel MD [facility] Faculty, Pulmonary, Critical Care and Sleep Medicine The [facility] CenterCoord[facility] ABI Diplomate in Pulmonary, Critical Care and Sleep MedicineNoNovant Health Medical Park HospitaluFaber SystemTelephone Encounteron [phone] Authentication Interface Message Textpatient is calling to request clarification on the following prescription: Medication Name: predniSONE (DELTASONE) 20 MG tablet Dosage: 20 mg Dosage form: tablet Directions: Take 3 Tablets by mouth daily for 4 days, THEN 2 Tablets daily for 5 days, THEN 1 Tablet daily for 5 days, THEN 0.5 Tablets daily for 5 days. Quantity: 10 Reason for call: patient needs clarification on the directions, only 10 tablets were prescribed. Please resend a new prescription with the appropriate amount or Please contact the patient to discuss this issue as well as a plan of action.NormalThe [email or web address] SystemURIC ACIDon 24-74-6988Ktxpl [Mass/Vol]5.3 mg/dL2.3 - 6.6 mg/dLMetroHealthUrate [Mass/Vol]5.3 mg/dLNormal2.3-6.6The [facility] CenteruFaber SystemComment on above:Performed By: #### ROBY, CBCDSAT #### [facility] [address] [place] [address], [address]SRKECMSMVS WITH REFLEX CULTURE PERFORMABLEon 05-29-2025 Appearance (U)ClearClearMetroHealthBilirubin Ql (U)NegativeNegativeMetroHealth Color (U)YellowColorlessMetroHealthEpithelial cells.squamous LM.HPF (Urine sed) [#/Area]11-30AbnormalMetroHealthGlucose Auto test strip (U) [Mass/Vol]Negative Negative mg/dLMetroHealthHemoglobin Ql (U)NegativeNegativeMetroHealth Interpretation and review of laboratory resultsAbnormalMetroHealthKetones Ql (U) NegativeNegative mg/dLMetroHealthLeukocyte esterase Test strip Ql (U)Positive AbnormalNegativeMetroHealthComment on above:Normal urine specimens will not produce a positive reaction. Small amounts of leukocyte esterase, causing a positive reaction should be repeated, using a fresh urine specimen, from the same patient. Positive results require further testing for pyuria.Mucus Ql (Urine sed)PresentMetroHealthNitrite Ql (U)NegativeNegativeMetroHealthpH (U)5.5 [pH]5.0 - 8.0MetroHealthProtein (U) [Mass/Vol]10 mg/dLNegativeMetroHealth Specific gravity (U) [Rel density]1.025NINF - 1.030MetroHealthUrobilinogen Qn (U)NegativeNegative mg/dLMetroHealthWBC (U) [#/Vol]None SeenMetroHealthWBC LM.HPF (Urine sed) [#/Area]31-100AbnormalMetroHealthA negative leukocyte esterase AND negative nitrite test or absence of pyuria (urine WBC count <= 5-10) make a UTI (urinary tract infection) very unlikely in a non-neutropenic adult (<=5% likelihood in many studies). A positive leukocyte esterase, nitrite and/or pyuria is a nonspecific result. This can be seen in conditions other than a UTI e.g. asymptomatic bacteriuria, gynecologic infections, sexually transmitted infections, and noninfectious conditions (positive predictive value for UTI around 50%) MetroHealthMetroHealthGlucose Ql (U)NegativeNormalNegativeThe [facility] System Comment on above:Order Comment: A negative leukocyte esterase AND negative nitrite test or absence of pyuria (urine WBC count <= 5-10) make a UTI (urinary tract infection) very unlikely in a non-neutropenic adult (<=5% likelihood in many studies). A positive leukocyte esterase, nitrite and/or pyuria is a nonsp ecific result. This can be seen in conditions other than a UTI e.g. asymptomatic bacteriuria, gynecologic infections, sexually transmitted infections, and noninfectious conditions (positive predictive value for UTI around 50%)Performed By: #### LUCIE CA #### S [facility] [address] [place] [address], [address]Haladdp (U) [Mass/Vol]10 mg/dLNormalNegativeThe [facility] SystemComment on above:Order Comment: A negative leukocyte esterase AND negative nitrite test or absence of pyuria (urine WBC count <= 5-10) make a UTI (urinary tract infection) very unlikely in a non-neutropenic adult (<=5% likelihood in many studies). A positive leukocyte esterase, nitrite and/or pyuria is a nonspecific result. This can be seen in conditions other than a UTI e.g. asymptomatic bacteriuria, gynecologic infections, sexually transmitted infections, and noninfectious conditions (positive predictive value for UTI around 50%)Performed By: #### LUCIE CA #### [facility] [address] [place] [address], [address]TUVOKBJR WXHYWFUHKV36-37Hmwwpxee2-83Zsf [facility] SystemComment on above:Order Comment: A negative leukocyte esterase AND negative nitrite test or absence of pyuria (urine WBC count <= 5-10) make a UTI (urinary tract infection) very unlikely in a non-neutropenic adult (<=5% likelihood in many studies). A positive leukocyte esterase, nitrite and/or pyuria is a nonsp ecific result. This can be seen in conditions other than a UTI e.g. asymptomatic bacteriuria, gynecologic infections, sexually transmitted infections, and noninfectious conditions (positive predictive value for UTI around 50%)Performed By: #### ROBY, LUCIE #### [facility] [address] [place] [address], [address]D APPEARClearNormalClearThe [facility] SystemComment on above:Order Comment: A negative leukocyte esterase AND negative nitrite test or absence of pyuria (urine WBC count <= 5-10) make a UTI (urinary tract infection) very unlikely in a non-neutropenic adult (<=5% likelihood in many studies). A positive leukocyte esterase, nitrite and/or pyuria is a nonspecific result. This can be seen in conditions other than a UTI e.g. asymptomatic bacteriuria, gynecologic infections, sexually transmitted infections, and noninfectious conditions (positive predictive value for UTI around 50%)Performed By: #### ROBY, CBCDSAT #### S [facility] [address] [place] [address], [address]T BILINegativeNormalNegativeThe [facility] Comment on above:Order Comment: A negative leukocyte esterase AND negative nitrite test or absence of pyuria (urine WBC count <= 5-10) make a UTI (urinary tract infection) very unlikely in a non-neutropenic adult (<=5% likelihood in many studies). A positive leukocyte esterase, nitrite and/or pyuria is a nonsp ecific result. This can be seen in conditions other than a UTI e.g. asymptomatic bacteriuria, gynecologic infections, sexually transmitted infections, and noninfectious conditions (positive predictive value for UTI around 50%)Performed By: #### ROBY, CBCDSAT #### [facility] [address] [place] [address], [address]M BLOODNegativeNormalNegativeThe [facility] Comment on above:Order Comment: A negative leukocyte esterase AND negative nitrite test or absence of pyuria (urine WBC count <= 5-10) make a UTI (urinary tract infection) very unlikely in a non-neutropenic adult (<=5% likelihood in many studies). A positive leukocyte esterase, nitrite and/or pyuria is a nonsp ecific result. This can be seen in conditions other than a UTI e.g. asymptomatic bacteriuria, gynecologic infections, sexually transmitted infections, and noninfectious conditions (positive predictive value for UTI around 50%)Performed By: #### ROBY, CBCDSAT #### [facility] [address] [place] [address], [address]O COLORYellowNormalColorlessGalion Hospital System Comment on above:Order Comment: A negative leukocyte esterase AND negative nitrite test or absence of pyuria (urine WBC count <= 5-10) make a UTI (urinary tract infection) very unlikely in a non-neutropenic adult (<=5% likelihood in many studies). A positive leukocyte esterase, nitrite and/or pyuria is a nonsp ecific result. This can be seen in conditions other than a UTI e.g. asymptomatic bacteriuria, gynecologic infections, sexually transmitted infections, and noninfectious conditions (positive predictive value for UTI around 50%)Performed By: #### ROBY, CBCDSAT #### S [facility] [address] [place] [address], [address]H KETONENegativeNormalNegativeBoston State HospitalroGeorgetown Behavioral [facility] System Comment on above:Order Comment: A negative leukocyte esterase AND negative nitrite test or absence of pyuria (urine WBC count <= 5-10) make a UTI (urinary tract infection) very unlikely in a non-neutropenic adult (<=5% likelihood in many studies). A positive leukocyte esterase, nitrite and/or pyuria is a nonsp ecific result. This can be seen in conditions other than a UTI e.g. asymptomatic bacteriuria, gynecologic infections, sexually transmitted infections, and noninfectious conditions (positive predictive value for UTI around 50%)Performed By: #### ROBY, CBCZEKEAT #### [facility] [address] [place] [address], [address]F LEUKPositiveAbnormalNegativeThe [facility] CenterroGeorgetown Behavioral Hospital System Comment on above:Order Comment: A negative leukocyte esterase AND negative nitrite test or absence of pyuria (urine WBC count <= 5-10) make a UTI (urinary tract infection) very unlikely in a non-neutropenic adult (<=5% likelihood in many studies). A positive leukocyte esterase, nitrite and/or pyuria is a nonsp ecific result. This can be seen in conditions other than a UTI e.g. asymptomatic bacteriuria, gynecologic infections, sexually transmitted infections, and noninfectious conditions (positive predictive value for UTI around 50%)Result Comment: Normal urine specimens will not produce a positive reaction. Small amounts of leukocyte esterase, causing a positive reaction should be repeated, using a fresh urine specimen, from the same patient. Positive results require further testing for pyuria.Performed By: #### ROBY, CBCDSAT #### S [facility] [address] [place] [address], [address]B MUCOUSPresentNormalThe [facility] SystemComment on above:Order Comment: A negative leukocyte esterase AND negative nitrite test or absence of pyuria (urine WBC count <= 5-10) make a UTI (urinary tract infection) very unlikely in a non-neutropenic adult (<=5% likelihood in many studies). A positive leukocyte esterase, nitrite and/or pyuria is a nonspecific result. This can be seen in conditions other than a UTI e.g. asymptomatic bacteriuria, gynecologic infections, sexually transmitted infections, and noninfectious conditions (positive predictive value for UTI around 50%)Performed By: #### LUCIE CA #### S [facility] [address] [place] [address], [address]V NITRITENegativeNormalNegativeThe [facility] Comment on above:Order Comment: A negative leukocyte esterase AND negative nitrite test or absence of pyuria (urine WBC count <= 5-10) make a UTI (urinary tract infection) very unlikely in a non-neutropenic adult (<=5% likelihood in many studies). A positive leukocyte esterase, nitrite and/or pyuria is a nonsp ecific result. This can be seen in conditions other than a UTI e.g. asymptomatic bacteriuria, gynecologic infections, sexually transmitted infections, and noninfectious conditions (positive predictive value for UTI around 50%)Performed By: #### LUCIE CA #### S PATH[facility] LAB[facility]ATORY [address] [place] [address], [address]J PH5.8Eijxjg1.0-8.0The [facility] SystemComment on above:Order Comment: A negative leukocyte esterase AND negative nitrite test or absence of pyuria (urine WBC count <= 5-10) make a UTI (urinary tract infection) very unlikely in a non-neutropenic adult (<=5% likelihood in many studies). A positive leukocyte esterase, nitrite and/or pyuria is a nonspecific result. This can be seen in conditions other than a UTI e.g. asymptomatic bacteriuria, gynecologic infections, sexually transmitted infections, and noninfectious conditions (positive predictive value for UTI around 50%)Performed By: #### LUCIE CA #### [facility] [address] [place] [address], [address]E RBCNone SeenNormal0-2The [facility] SystemComment on above:Order Comment: A negative leukocyte esterase AND negative nitrite test or absence of pyuria (urine WBC count <= 5-10) make a UTI (urinary tract infection) very unlikely in a non-neutropenic adult (<=5% likelihood in many studies). A positive leukocyte esterase, nitrite and/or pyuria is a nonspecific result. This can be seen in conditions other than a UTI e.g. asymptomatic bacteriuria, gynecologic infections, sexually transmitted infections, and noninfectious conditions (positive predictive value for UTI around 50%)Performed By: #### YANDEL CAAT #### S [facility] [address] [place] [address], [address]V SG1.025Normal<=1.030The [facility] SystemComment on above:Order Comment: A negative leukocyte esterase AND negative nitrite test or absence of pyuria (urine WBC count <= 5-10) make a UTI (urinary tract infection) very unlikely in a non-neutropenic adult (<=5% likelihood in many studies). A positive leukocyte esterase, nitrite and/or pyuria is a nonspecific result. This can be seen in conditions other than a UTI e.g. asymptomatic bacteriuria, gynecologic infections, sexually transmitted infections, and noninfectious conditions (positive predictive value for UTI around 50%)Performed By: #### LUCIE CA #### [facility] [address] [place] [address], [address]H UROBILINegativeNormalNegativeThe [facility] Comment on above:Order Comment: A negative leukocyte esterase AND negative nitrite test or absence of pyuria (urine WBC count <= 5-10) make a UTI (urinary tract infection) very unlikely in a non-neutropenic adult (<=5% likelihood in many studies). A positive leukocyte esterase, nitrite and/or pyuria is a nonsp ecific result. This can be seen in conditions other than a UTI e.g. asymptomatic bacteriuria, gynecologic infections, sexually transmitted infections, and noninfectious conditions (positive predictive value for UTI around 50%)Performed By: #### YANDEL CAAT #### [facility] [address] [place] [address], [address]M [id number] [facility] SystemComment on above:Order Comment: A negative leukocyte esterase AND negative nitrite test or absence of pyuria (urine WBC count <= 5-10) make a UTI (urinary tract infection) very unlikely in a non-neutropenic adult (<=5% likelihood in many studies). A positive leukocyte esterase, nitrite and/or pyuria is a nonspecific result. This can be seen in conditions other than a UTI e.g. asymptomatic bacteriuria, gynecologic infections, sexually transmitted infections, and noninfectious conditions (positive predictive value for UTI around 50%)Performed By: #### ROBY, CBCDSAT #### [facility] [address] [place] [address], [address]IKEQL CULTUREon 64-20-4590Dsmzjgif identified Cx Nom (U)C URINE: 1,000 - 10,000 CFU/ml No significant growth; skin/urogenital contamination presentNormalThe [facility] SystemComment on above:Performed By: ###Marni CA, CBCDSAT #### [facility] [address] [place] [address], [address]YZISY METABOLIC PANELon 12-56-9833Joiis gap [Moles/Vol] 14 mmol/EQldbsm00-02Trj [facility] CenterHealth SystemComment on above:Performed By: #### TAYLOR, CRP #### [facility] [address] [place] [address], [address]Kjcrcwc [Mass/Vol]8.8 mg/dLNormal8.6-10.3The [facility] Centerro[facility] SystemComment on above:Performed By: ###Marni VAZQUEZ, CRP #### [facility] [address] [place] [address], [address]Wusztqei [Moles/Vol]105 mmol/BHrznbh51-607Gkm [facility] CenterroHealth SystemComment on above:Performed By: #### TAYLOR, CRP #### S PATH[facility] [address] [place] [address], [address]ZK9 [Moles/Vol]23 mmol/IQhyjhq18-55Kel [facility] CenterroHealth SystemComment on above:Performed By: #### TAYLOR, CRP #### [facility] [address] [place] [address], [address]Glinswmkoi [Mass/Vol]0.95 mg/dLNormal0.60-1.20The [facility] SystemComment on above:Performed By: #### CH8, CRP #### S [facility] [address] [place] [address], [address]FYFHBLSMC GFR (CKD-EPI)66 mL/min/1.73sqmNormal>=60The [facility] SystemComment on above:Result Comment: 2020 CKD EPI Equation using Creatinine without Race Comment: Estimated glomerular filtration rate (eGFR) is calculated without a race coefficient. Values should be interpreted in the context of the patient's full clinical presentation. Reference: 1. Grey C, Ryland M, Krista DC, et al.. A Unifying Approach for GFR Estimation: Recommendations of the NKF-ASN Task Force on Reassessing the Inclusion of Race in Diagnosing Kidney Disease. AmericanJournal of Kidney Diseases 2021;79(2):268-88.e1. 2. N Engl J Med 1 Vol. 385 Issue 19 Pages 5838-1408Performed By: #### CH8, CRP #### S PATH[facility] [address] [place] [address], [address]Yustbqp [Mass/Vol]151 mg/jHAjaw20-312Ssy [facility] CenterroHealth SystemComment on above:Performed By: #### CH8, CRP #### S [facility] [address] [place] [address], [address]Xxiswzqzs [Moles/Vol]4.4 mmol/LNormal3.5-5.0The [facility] CenterroHealth SystemComment on above:Performed By: #### CH8, CRP #### S [facility] [address] [place] [address], [address]Echxng [Moles/Vol]138 mmol/FKkwmds495-410Joj [facility] CenterroHealth SystemComment on above:Performed By: #### CH8, CRP #### S [facility] [address] [place] [address], [address]Ejqn nitrogen [Mass/Vol]23 mg/dLNormal7-25The [facility] SystemComment on above:Performed By: #### CH8, CRP #### S [facility] [address] [place] [address], [address]Lvegq gap [Moles/Vol]16 mmol/GIslifj03-20Hsu [facility] SystemComment on above:Performed By: #### HEPATIC, CH8 #### S [facility] [address] [place] [address], [address]Kakxsza [Mass/Vol]8.7 mg/dLNormal8.6-10.3The [facility] SystemComment on above:Performed By: #### HEPATIC, CH8 #### S [facility] [address] [place] [address], [address]Bhhjytdn [Moles/Vol]104 mmol/HMfqkjx58-437Yld [facility] CenterroHealth SystemComment on above:Performed By: #### HEPATIC, CH8 #### S [facility] [address] [place] [address], [address]HF6 [Moles/Vol]23 mmol/QZeeipu83-75Bnq [facility] CenterroHealth SystemComment on above:Performed By: #### HEPATIC, CH8 #### S [facility] [address] [place] [address], [address]Ubvhqyyuui [Mass/Vol]1.09 mg/dLNormal0.60-1.20The [facility] SystemComment on above:Result Comment: Grossly icteric; may falsely decrease creatininePerformed By: #### HEPATIC, CH8 #### S [facility] [address] [place] [address], [address]GAKLNJFCR GFR (CKD-EPI)56 mL/min/1.73sqmLow>=60The [facility] SystemComment on above:Result Comment: 2020 CKD EPI Equation using Creatinine without Race Comment: Estimated glomerular filtration rate (eGFR) is calculated without a race coefficient. Values should be interpreted in the context of the patient's full clinical presentation. Reference: 1. Grey C, Ryland M, Krista GUSTAFSON, et al.. A Unifying Approach for GFR Estimation: Recommendations of the NKF-ASN Task Force on Reassessing the Inclusion of Race in Diagnosing Kidney Disease. AmericanJournal of Kidney Diseases 2021;79(2):268-88.e1. 2. N Engl J Med 1 Vol. 385 Issue 19 Pages 1737-1749Performed By: #### HEPATIC, CH8 #### [facility] [address] [place], [address]Dmdujrq [Mass/Vol]148 mg/lMNjjt39-899Hkd [facility] SystemComment on above:Performed By: #### HEPATIC, CH8 #### [facility] [address] [place], [address]Ytwpgllmf [Moles/Vol]8.5 mmol/LCritically high3.5-5.0 The [facility] SystemComment on above:Result Comment: Hemolysis present Performed By: #### HEPATIC, CH8 #### S PATH[facility] [address] [place], [address]Piwzru [Moles/Vol]134 mmol/PAvb211-530Ucf [facility] CenterroHealth SystemComment on above:Performed By: #### HEPATIC, CH8 #### S [facility] [address] [place], [address]Wfen nitrogen [Mass/Vol]24 mg/dLNormal7-25The [facility] SystemComment on above:Performed By: #### HEPATIC, CH8 #### S PATHOLOG[facility] LABORATORY [address] [place], [address]Mafec metabolic 2000 panelOrdered By: Shawna Baldwin on 79-12-1133Ilkmy gap [Moles/Vol]14 mmol/L10 - 20MetroHealthCalcium [Mass/Vol]8.8 mg/dL8.6 - 10.3 mg/dLMetroHealthChloride [Moles/Vol]105 mmol/L98 - 107 mmol/L MetroHealthCO2 [Moles/Vol]23 mmol/L21 - 31 mmol/LMetroHealthCreatinine [Mass/Vol]0.95 mg/dL0.60 - 1.20 mg/dLMetroHealthGFR/1.73 sq M.predicted CKD-EPI (S/P/Bld) [Vol rate/Area]66- PINFMetroHealthComment on above:2020 CKD EPI Equation using Creatinine without Race Comment: Estimated glomerular filtration rate (eGFR) is calculated without a race coefficient. Values should be interpreted in the context of the patient's full clinical presentation. Reference: 1. Ryland Graham Crews DC, et al.. A Unifying Approach for GFR Estimation: Recommendations of the NKF-ASN Task Force on Reassessing the Inclusion of Race in Diagnosing Kidney Disease. AmericanJournal of Kidney Diseases 202;79(2):268-88.e1. 2. N Engl J Med 2020 Vol. 385 Issue 19 Pages 9329-1039 Glucose [Mass/Vol]151 mg/dKCwtm71 - 109 mg/dLMetroHealthInterpretation and review of laboratory resultsAbnormalMetroHealthPotassium [Moles/Vol]4.4 mmol/L 3.5 - 5.0 mmol/LMetroHealthSodium [Moles/Vol]138 mmol/L136 - 145 mmol/L MetroHealthUrea nitrogen [Mass/Vol]23 mg/dL7 - 25 mg/dLMetroHealthMetroHealth Basic metabolic 2000 panelOrdered By: Leno Gunn on 12-11-3201Dqojd gap [Moles/Vol]16 mmol/L10 - 20MetroHealthCalcium [Mass/Vol]8.7 mg/dL8.6 - 10.3 mg/dLMetroHealthChloride [Moles/Vol]104 mmol/L98 - 107 mmol/LMetroHealthCO2 [Moles/Vol]23 mmol/L21 - 31 mmol/LMetroHealthCreatinine [Mass/Vol]1.09 mg/dL0.60 - 1.20 mg/dLMetroHealthComment on above:Grossly icteric; may falsely decrease creatinineGFR/1.73 sq M.predicted CKD-EPI (S/P/Bld) [Vol rate/Area]56Low- PINF MetroHealthComment on above:2020 CKD EPI Equation using Creatinine without Race Comment: Estimated glomerular filtration rate (eGFR) is calculated without a race coefficient. Values should be interpreted in the context of the patient's full clinical presentation. Reference: 1. Ryland Graham Crews DC, et al.. A Unifying Approach for GFR Estimation: Recommendations of the NKF-ASN Task Force on Reassessing the Inclusion of Race in Diagnosing Kidney Disease. AmericanJournal of Kidney Diseases 202;79(2):268-88.e1. 2. N Engl J Med 2021 Vol. 385 Issue 19 Pages 8440-8899 Glucose [Mass/Vol]148 mg/hPWgtc79 - 109 mg/dLMetroHealthInterpretation and review of laboratory resultsAbnormalMetroHealthPotassium [Moles/Vol]8.5 mmol/L Critically high3.5 - 5.0 mmol/LMetroHealthComment on above:Hemolysis present Sodium [Moles/Vol]134 mmol/MYgw529 - 145 mmol/LMetroHealthUrea nitrogen [Mass/Vol]24 mg/dL7 - 25 mg/dLMetroHealthMetroHealthC-REACTIVE PROTEINon 30-08-9547YKL [Mass/Vol]4.5 mg/dLHighNINF - 0.5 mg/dLMetroHealthInterpretation and review of laboratory resultsAbnormalMetroHealthMetroHealthCRP4.5 mg/dLHigh <0.5The [facility] SystemComment on above:Performed By: #### CH8, CRP #### [facility] [address] [place] [address], [address]ZDL WITH DIFFERENTIALon 55-10-3754Zvqltvyew (Bld) [#/Vol]0.02 10*3/uL0.00 - 0.20 K/uLMetroHealthBasophils/100 WBC (Bld)0.1 %NINF - 1.9 %MetroHealthEosinophils (Bld) [#/Vol]0.09 10*3/uL0.00 - 0.70 K/uL MetroHealthEosinophils/100 WBC (Bld)0.5 %0.1 - 4.0 %MetroHealthErythrocyte distribution width (RBC) [Ratio]14.3 %11.5 - 14.5 %MetroHealthHematocrit (Bld) [Volume fraction]37.4 %36.0 - 46.0 %MetroHealthHemoglobin (Bld) [Mass/Vol]12.4 g/dL12.0 - 15.0 g/dLMetroHealthInterpretation and review of laboratory results AbnormalMetroHealthLymphocytes (Bld) [#/Vol]0.59 10*3/uLLow1.00 - 4.80 K/uL MetroHealthLymphocytes/100 WBC (Bld)3.1 %Low24.0 - 44.0 %MetroHealthMCH (RBC) [Entitic mass]28.7 pg26.0 - 34.0 pgMetroHealthMCHC (RBC) [Mass/Vol]33.3 g/dL32.0 - 35.9 g/dLMetroHealthMCV (RBC) [Entitic vol]86 fL80 - 100 fLMetroHealth Monocyte distribution width Auto (Bld) [Entitic vol]22HighNINF - 20[facility] Monocytes (Bld) [#/Vol]0.45 10*3/uL0.20 - 1.00 K/uLMetroHealthMonocytes/100 WBC (Bld)2.3 %2.0 - 11.0 %MetroHealthNeutrophils (Bld) [#/Vol]18.2 10*3/uLHigh1.50 - 8.00 K/uLMetroHealthNeutrophils/100 WBC (Bld)94.1 %High31.0 - 76.0 %[facility] Platelet mean volume (Bld) [Entitic vol]9.4 fL7.5 - 11.2 fLMetroHealthPlatelets (Bld) [#/Vol]200 10*3/uL150 - 400 K/uLMetroHealthRBC (Bld) [#/Vol]4.33 10*6/uL MetroHealthWBC (Bld) [#/Vol]19.4 10*3/uLHigh4.5 - 11.5 K/uLMetroHealth MetroHealthBasophils (Bld) [#/Vol]0.02 10*3/uLNormal0.00-0.20The [facility] SystemComment on above:Performed By: #### CH8, CRP #### [facility] [address] [place] [address], [address]Xvaxiykaj/100 WBC (Bld)0.1 %Normal<=1.9The [facility] SystemComment on above:Performed By: #### CH8, CRP #### [facility] [address] [place], [address]Xvvmprwalmq (Bld) [#/Vol]0.09 10*3/uLNormal0.00-0.70The [facility] Center[facility] SystemComment on above:Performed By: #### CH8, CRP #### [facility] [address] [place] [address], [address]Htcgxqhuzge/100 WBC (Bld)0.5 %Normal0.1-4.0The [facility] CenterroHealth SystemComment on above:Performed By: #### CH8, CRP #### [facility] [address] [place] [address], [address]Zbuecekeapp distribution width (RBC) [Ratio]14.3 % Wjufol42.5-14.5The [facility] Center[facility] SystemComment on above:Performed By: #### CH8, CRP #### [facility] [address] [place] [address], [address]Xznzgkzrkt (Bld) [Volume fraction]37.4 %Wnwija30.0-46.0 The [facility] CenterroHealth SystemComment on above:Performed By: #### CH8, CRP #### [facility] [address] [place] [address], [address]Ihxlnsefcg (Bld) [Mass/Vol]12.4 g/sUMittxb33.0-15.0The [facility] CenterroHealth SystemComment on above:Performed By: #### CH8, CRP #### [facility] [address] [place] [address], [address]Frkgqrinrkd (Bld) [#/Vol]0.59 10*3/uLLow1.00-4.80The [facility] CenterHealth SystemComment on above:Performed By: #### CH8, CRP #### [facility] [address] [place] [address], [address]Rngizqwpklk/100 WBC (Bld)3.1 %Low24.0-44.0The [facility] CenterHealth SystemComment on above:Performed By: #### CH8, CRP #### [facility] [address] [place] [address], [address]SKG (RBC) [Entitic mass]28.7 qlDsbdyy21.0-34.0The [facility] SystemComment on above:Performed By: #### CH8, CRP #### [facility] [address] [place] [address], [address]VZWI (RBC) [Mass/Vol]33.3 g/nYCcxncb66.0-35.9The [facility] CenterroHealth SystemComment on above:Performed By: #### CH8, CRP #### [facility] [address] [place] [address], [address]NWO (RBC) [Entitic vol]86 rOAwpkhd32-058Txy [facility] CenterHealth SystemComment on above:Performed By: #### CH8, CRP #### [facility] [address] [place] [address], [address]YDPNAXOP DISTRIBUTION DRJVP88Grfh<=20The [facility] CenterHealth SystemComment on above:Performed By: #### CH8, CRP #### [facility] [address] [place] [address], [address]Fuydwounz (Bld) [#/Vol]0.45 10*3/uLNormal0.20-1.00The [facility] CenterHealth SystemComment on above:Performed By: #### CH8, CRP #### [facility] [address] [place] [address], [address]Szwhwrtyv/100 WBC (Bld)2.3 %Normal2.0-11.0The [facility] CenterHealth SystemComment on above:Performed By: #### CH8, CRP #### [facility] [address] [place] [address], [address]Aoopjnhzttc (Bld) [#/Vol]18.20 10*3/uLHigh1.50-8.00The [facility] CenterHealth SystemComment on above:Performed By: #### CH8, CRP #### [facility] [address] [place] [address], [address]Epfdabcdgwi/100 WBC (Bld)94.1 %High31.0-76.0The [facility] CenterHealth SystemComment on above:Performed By: #### CH8, CRP #### [facility] [address] [place] [address], [address]Qawvalis mean volume (Bld) [Entitic vol]9.4 fLNormal 7.5-11.2The [facility] CenterroHealth SystemComment on above:Performed By: #### CH8, CRP #### [facility] [address] [place] [address], [address]Nalrpuota (Bld) [#/Vol]200 10*3/jOQccbks990-175Jzt [facility] SystemComment on above:Performed By: #### CH8, CRP #### [facility] [address] [place] [address], [address]JPW (Bld) [#/Vol]4.33 10*6/uLNormal4.00-5.20The [facility] CenterroHealth SystemComment on above:Performed By: #### CH8, CRP #### [facility] [address] [place] [address], [address]CUZ (Bld) [#/Vol]19.4 10*3/uLHigh4.5-11.5The [facility] CenterroHealth SystemComment on above:Performed By: #### CH8, CRP #### [facility] [address] [place] [address], [address]HWP panel Auto (Bld)Ordered By: Valente Spain on 93-66-6918Baxqcxxwzyhxnu and review of laboratory resultsAbnormalMetroHealth MetroHealthCOMPLETE BLOOD COUNTOrdered By: Valente Spain on 05-28-2025 Erythrocyte distribution width (RBC) [Ratio]14.2 %Kjvdwp24.5-14.5[facility] Comment on above:Performed By: #### CBC #### [facility] [address] [place] [address], [address]Njjsszxiqo (Bld) [Volume fraction]35.9 %Low36.0-46.0 MetroHealthComment on above:Performed By: #### CBC #### [facility] [address] [place] [address], [address]Gavwjjedty (Bld) [Mass/Vol]12.8 g/pANxxatt96.0-15.0 MetroHealthComment on above:Performed By: #### CBC #### [facility] [address] [place], [address]VSV (RBC) [Entitic mass]30.6 ziQbbmmj93.0-34.0 MetroHealthComment on above:Performed By: #### CBC #### [facility] [address] [place] [address], [address]ASHI (RBC) [Mass/Vol]35.6 g/uGSkzahj36.0-35.9 MetroHealthComment on above:Performed By: #### CBC #### [facility] [address] [place] [address], [address]ZKJ (RBC) [Entitic vol]86 yPByjame89-810IrjluUoslds Comment on above:Performed By: #### CBC #### [facility] [address] [place] [address], [address]Itvgrdzu mean volume (Bld) [Entitic vol]8.9 fLNormal 7.5-11.2MetroHealthComment on above:Performed By: #### CBC #### [facility] [address] [place] [address], [address]Rpuqauemo (Bld) [#/Vol]191 10*3/jTWbskmh523-685 MetroHealthComment on above:Performed By: #### CBC #### [facility] [address] [place] [address], [address]JWI (Bld) [#/Vol]4.17 10*6/uLNormal4.00-5.20[facility] Comment on above:Performed By: #### CBC #### [facility] [address] [place] [address], [address]AOT (Bld) [#/Vol]22.2 10*3/uLHigh4.5-11.5[facility] Comment on above:Performed By: #### CBC #### [facility] [address] [place] [address], [address]Jlfpewdtoj 77-28-9134Dspcbnudlzwxl Authentication Interface Message TextDermatology Inpatient Consult Attending: Dr. Mann Date of Service: 05/28/2025 Referred by: No referring provider defined for this encounter. Clinical Question: diffuse eruption HPI Delmis Mtz is a 65 year old female with a PMHx significant for HTN, HLD, GERD who presented to [facility] with diffuse rash. Pt had hysterectomy for endometrial carcinoma on 05/12 for which she received IV Ancef and ingrown toenail podiatry procedure on 05/19 on which day she began taking clindamycin. Started develping rash on 05/24 and stopped clindamycin that night - she received steroid injections (unclear dose) on 05/26 and 05/27 and was started on prednisone taper - she did not notice improvement despite these. Pt notes she has so far taken 50mg prednisone last night and 50mg this morning. Pt sent to [facility] today by outside certified professional midwife to r/o SJS. Rash is pruritic/burning but is not painful or tender. Pt does not have blisters or erosions. Does not note ocular, oral, or urogenital symptoms. PMHx/Shx/FHx Reviewed in [facility], significant as above ROS: As noted in HPI Physical Exam Vital sign ranges over the past 24 hours (retrieved 05/28/2025 at 5:39 PM): Tmax (24 hours): 98.7 ???F (37.1 ???C) Pulse Av Min: 73 Max: 73 Systolic (24hrs), Av , Min:105 , Max:105 Diastolic (24hrs), Av, Min:60, Max:60 No data recorded Resp Av Min: 18 Max: 18 SpO2 Av % Min: 98 % Max: 98 % General: resting in chair in NAD Face, neck, chest, abdomen, back, arms, legs, mouth examined, pertinent skin findings include: - Involving the trunk, neck, face, and extremities is an erythematous mildly edematous morbiliform eruption coalescing into a large confluent erythematous plaque on the trunk - some small pustules present on forearms. Faint erythematous macules present on palms - No oral erosions identified Pertinent Labs, imaging, and/or pathology: Reviewed in [facility], significant for: WBC 19.4 CRP 4.5 Assessment and Plan: 1. Diffuse morbiliform eruption: - ddx at this time includes AGEP (secondary to clindamycin) vs DRESS vs morbiliform drug eruption vs less likely SJS/EM, SSSS - recommended punch biopsy to aid in diagnosis, pt agreeable Punch Biopsy Procedure Note - Benefits, risks, and alternatives were discussed with the patient prior to procedure including infection, bleeding, or scarring. Verbal informed consent obtained from patient prior to procedure. - Site 1: left forearm - Site 2: central abdomen Time out was performed prior to procedure. Time Out: 6:15 PM Diagnosis, treatment, risks, benefits and treatment alternatives were discussed. Verbal consent obtained. Correct patient, correct procedure, and correct procedure site confirmed. - Area(a) prepared in standard sterile fashion. - Anesthesia with 1% lidocaine with epi 1:100,000. - Lesion(s) removed with 4 mm punch. - Site(s) closed with 4.0 vicryl rapide suture(s) x 2 - Complications: None. - Specimen(s) to path. - Sites dressed. Wound care instructions reviewed with patient. - Sutures are dissolvable and do not need removal. Recommendations: - add clindamycin to pt's allergy list - pt likely to need steroid taper course - given has already taken 50mg today, will determine dosage on evaluation tomorrow - f/u biopsy results, preliminary read likely Wednesday 05/30 - please add nursing communication order regarding biopsy site (left forearm, central abdomen) care: Daily care of bx site: Leave original dressing in place for about 24 hours. Starting tomorrow, start the following: Once daily, clean biopsy site with mild soap and water. If there is drainage from the biopsy site, it may need to be cleaned more frequently than once a day. After washing, pat the area dry. DO apply vaseline or aquaphor to the wound. Apply a new band-aid over the area. Time spent with the patient includes: 90 minutes Thank you for allowing us to participate in the care of this patient. This patient was seen and discussed with Dr. Garza, attending physician, who agrees with above assessment/plan unless otherwise stated. Consult received from and note shared with primary team. Tony Dupont MD Resident in Dermatology Teaching Physician Note: History: as noted Physical findings: as noted Medical Decision Making: as noted Bx results pustular drug/AGEP. Will start Pred taper I saw and evaluated the patient. I personally obtained the loredo and critical portions of the history and physical exam. I reviewed the resident's documentation and discussed the patient with the resident. I agree with the resident's medical decision making as documented in the resident's note. I was personally present for the loredo portions of the procedure. Mayra Garza MDMiddletown HospitalED Noteson 05-28-2025 Audio Visual Production Specialist Authentication Interface Message TextDr. Ro CAMARENA notified of critical POTASSIUM value of 8.5 (HEMOLYZED). Hard copy of results given to Dr. Ro CAMARENA. Latonya Norton, [facility] SystemED Provider Noteson 05-28-2025 Audio Visual Production Specialist Authentication Interface Message Text Attestation signed by Julian Camarena MD at 06/02/2025 8:18 AM I saw and evaluated the patient. I personally obtained the loredo and critical portions of the history and physical exam. I reviewed the resident's documentation and discussed the patient with the resident. I agree with the resident's medical decision making as documented in the resident's note. Dr. Julian Camarena EMERGENCY DEPARTMENT - VISIT NOTE HISTORY OF PRESENT ILLNESS Chief Complaint Patient presents with Generalized redness/erythema/rash Started clindamycin on 05/19. Rash all over body Monday morning. Stopped clindamycin Monday night. Saw doctor on Monday AND received cortisone shot Monday AND Monday. Monday started prednisone. Seen certified professional midwife at [facility] in [place] today AND sent here for rustam sewell Iridologist: not needed - patient preferred language is Portuguese. The history is provided by the Patient. Delmis Mtz is a 65 year old female pmh endometrial ca, copd, gerd, hld, htn, presenting to the ED for rash after starting clindamycin. Pt notes worsening red rash on 05/24 that started after starting clincamycin on 05/19 due to toe procedure abx. Pt notes that started on lower back as small dots with red raised rash and spread to torso and rest of body including arms and legs and now thinks its in throat. Pt notes starts as itching and now burning sensation. Pt endorses chills, sore throat. Denies n/v, abd pain diarrhea. Pt also concerned for quick spread of rash in last day. Pt got 2 steroid injections this past week and started on prednisone 10mg without improvement. Pt was also recently started on ciprofloxacin for uti. Pt notes no improvement with cortisone cream or benadyl. Per chart review pt had hysterectomy on 05/12 for endometrial adenocarcinoma and was on ancef perioperative treatment. PAST HISTORY Pertinent Past History: Medical History[1] Problem List[2] Pertinent Social History: Social History[3] PHYSICAL EXAM BP 105/60 Pulse 73 Temp 98.7 ???F (37.1 ???C) (Oral) Resp 18 SpO2 98% Constitutional: Awake, alert, not in acute distress HENT: Head atraumatic, mucous membranes moist with no buccal lesions althought dry cracked lips present Eyes: Conjunctivae normal Neck: Supple Lungs: Clear to auscultation, breath sounds equal and symmetric, no wheezes, rales, or rhonchi Heart: Regular rate and rhythm, no murmur, rub or gallop Abdomen: Soft, nontender, nondistended, no rebound or guarding Extremities: No lower extremity edema Neuro: Alert, no focal deficit Skin: Warm, dry, erythematous rash diffusely with oral mucosa involvement. Rash is blanchable and non painful with negative nikolsky sign Psych: Calm, cooperative MEDICAL DECISION MAKING and ED COURSE Nursing triage and assessment notes reviewed and incorporated. Discussion with External Provider: Cloth Spreader Screen Printing from derm service pending final recs. Medication Management: Medications prescribed - see visit medications. Evaluated by EM attending Julian Camarena Course: Assessment AND Plan: Delmis Mtz is a 65 year old female who presented with rash. DRESS possible given new medications, rash is diffuse, without systemic sxs. MAHA/TTP/DIC less likely given no petechiae, nontoxic, no AMS. Meningococcemia less likely given no meningeal signs (no ABAD, no photophobia, no neck pain/stiffness), no petechiae, nontoxic. Necrotizing fasciitis less likely given no pain out of proportion, no bullae, no crepitus, no discharge. Pemphigus vulgaris less likely given not elderly, no bullae, no mucosal involvement, - Nikolsky sign. Staph scalded skin syndrome less likely given no fever, no exfoliation, nontoxic although recent surgery hysterectomy noted on 05/12. Pt is hds. TEN/SJS also considered given negative Nikolsky sign, nontoxic, no mucosal involvement although lip cracking noting without intraoral lesions. Toxic shock less likely given no desquamation, no ID source (no retained tampon, no nasal packing). Urticaria/anaphylaxis less likely given no medication or food exposure, no difficulty breathing or stridor. Contact dermatitis less likely given not localized, no exposure (no new clothes, detergents, soaps). Erythema multiforme considered given new drugs, recent infections, although lesions not targetoid. Pityriasis less likely given no [place] patch, no [place] tree distribution, nonpruritic. Viral exanthem less likely given no aches, no fever. Zoster less likely given no vesicular lesions, nonderma (more content not included)...Normal The [facility] CenterroHealth SystemERYTHROCYTE SEDIMENTATION RATEOrdered By: Madhuri Esposito on [id number] (Bld) [Velocity]22 mm/hNINFMetroHealthInterpretation and review of laboratory resultsNormalMetroHealthMetroHealthERYTHROCYTE SEDIMENTATION RATEon [id number] (Bld) [Velocity]22 mm/hNormal<=30The [facility] SystemComment on above:Performed By: #### CH8, CRP #### [facility] [address] [place] [address], [id number] AND [facility] [id number] Authentication Interface Message [facility] Step Down Unit - H AND P Patient: Delmis Mtz : 1960 Sex: female Room: [place] [address] Admission: 05/28/2025 Today: 05/28/2025 (Length of stay: 1 day(s)) HISTORY OF PRESENT ILLNESS: CHIEF COMPLAINT: Chief Complaint Patient presents with Generalized redness/erythema/rash Started clindamycin on 05/19. Rash all over body Monday morning. Stopped clindamycin Monday night. Saw doctor on Monday AND received cortisone shot Monday AND Monday. Monday started prednisone. 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 Per ED note, pt states the rash is non-tender/painful started in the lower back as small dots w/red raised rash that was spreading Centripetally to the torso and rest of body. Pt tried cortisone cream, benadryl, 2 steroid injections Monday and Monday w/no relief. Pt was also recently started on Ciprofloxacin for UTI. She was in the Derm clinic at [facility] in [place] and sent for concerns of SJS. Pt endorses itching, burning, and chills, sore throat. Pt denies N/V/Diarrhea at this time, no blisters, erosions, no ocular, oral, or urogenital symptoms Today the patient is evaluated bedside, is extremely pleasant, alert and oriented x 3, is stating the rash started Monday (05/24/25) on her torso, then spread to her back and legs. Pt states it has been itchy, progressively involving more skin, is warm to the touch, mildly blanchable, not sloughing off with palpation. Pt states today her R eye is dry, she has a scratchy throat, mild nausea, continued reported dysuria/discharge, and generalized pruritis. She denies diarrhea, chest pain, vomiting, new abdominal pain (Laparoscopic sites are tenter frame back tender, but C/D/I), headache, dysphagia, and blurry vision at this time. Pt denies recent travel exposure in the [place] or elsewhere, lives at home with her sister, no new detergents, soaps, changes in laundry, or pets at home. Otherwise has no other complaints at this time. ED Course: - VS: 105/60, HR: 73, 98.7 F, resp 18, SpO2 98% - Labs: CBC, WBC at 22.2 (next one ordered 19.4) (possible de margination from steroids), BMP hyponatremic at 134, elevated K+ due to hemolysis from collection, GFR 56, Need to repeat BMP due to BUN/Cr being grossly icteric (), HFTs AST 72, ALT 79, Alk phosp 105, CRP 4.5, ESR 22, lactate 2.1, Skin biopsy pending, - EKG: NSR, RRR, Normal axis deviation, no acute ST changes, unspecified T wave inversions, normal R wave progression, normal QTc - Imaging: Chest x-ray (05/28/25) IMPRESSION: No acute radiographic abnormality identified. - Interventions: - Ju -, derm consult, SDU admission, DDX: DRESS due to new meds, Erythema multiforme, MAHA/TTP/DIC less likely, not clinically concerned for meningococcemia no meningeal signs noted, Nec. Fasc. Not suspicious due to no pain out of proportion, crepitus, bullae, and discharge. No mucosal involvement at this time, not suspicious for pemphigus vulgaris. Staph. Scaled skin + toxic shock syndrome not likely as pt is afebrile, no exfoliation, non-toxic. Contact dermatitis less likely as no recent changes or exposures to new soaps, detergents, and clothes. No herald patch seen, viral exanthem and zoster less likely as no dermatomal and vesicular lesions present. ROS: As noted in HPI PAST MEDICAL HISTORY: Medical History[1] Surgical History[2] Family History[3] Social History[4] Medications Ordered Prior to Encounter[5] Allergies[6] OBJECTIVE: Objective Temperature: [98.1 ???F (36.7 ???C)-98.7 ???F (37.1 ???C)] 98.1 ???F (36.7 ???C) Heart Rate: [56-83] 60 Respiratory Rate: [13-18] 18 BP: (105-154)/(60-109) 124/109 O2 Device: Room air at 100 % No intake or output data in the 24 hours ending 05/28/25 2304 LABS: CBC: (05/28/2025: 4:21 PM) WBC 19.4 Hgb 12.4 / Plt 200 / Hct 37.4 Results Review BMP: (05/28/2025: 4:21 PM) 138 105 23 Gluc 151 4.4 23 0.95 Mg PO4 Ca N/A N/A 8.8 (1.6-2.8) (2.5-4.8) (8.4-10) Baseline Weight 297 Admission Weight Weight: 297 lb (134.7 kg) Today's Weight Weight: 297 lb (134.7 kg) BMI 41.42 PHYSICAL EXAM: General: NAD. HEENT: EOMI. Conjunctiva clear. No scleral icterus. Heart: RRR. No murmurs or rub. Lungs: CTAB. Abdomen: Soft, tender at surgical sites, generalized redness, biopsy site under umbilicus Extremities: No LE edema. Neuro: No focal deficits. A AND Ox3, sensation intact Skin: Warm AND dry, generalized redness, raised, non-tender lesions involving > 50% of body IMAGING/OTHER: Chest x-ray was last done on 05/28/2025 Na (more content not included)...NormalThe [facility] SystemHEPATIC FUNCTION PANELon [id number] [Mass/Vol]4.1 g/dL3.5 - 5.7 g/dLMetroHealth ALP [Catalytic activity/Vol]105 U/LHighMetroHealthALT [Catalytic activity/Vol]79 U/LHighMetroHealthAST [Catalytic activity/Vol]72 U/LHighMetroHealthComment on above:Hemolysis presentBilirubin [Mass/Vol]0.7 mg/dL0.3 - 1.0 mg/dLMetroHealth Bilirubin.direct [Mass/Vol]mg/dL0.03 - 0.18 mg/dLMetroHealthInterpretation and review of laboratory resultsAbnormalMetroHealthProtein [Mass/Vol]6.9 g/dL6.0 - 8.3 g/dLMetroHealthMetroHealthAlbumin [Mass/Vol]4.1 g/dLNormal3.5-5.7The [facility] CenterroHealth SystemComment on above:Performed By: #### HEPATIC, CH8 #### [facility] [address] [place] [address], [id number] [facility] SystemComment on above:Performed By: #### HEPATIC, CH8 #### S [facility] [address] [place] [address], [id number] [Catalytic activity/Vol]79 U/LHigh7-52The [facility] CenterroGeorgetown Behavioral Hospital SystemComment on above:Performed By: #### HEPATIC, CH8 #### [facility] [address] [place] [address], [id number] [Catalytic activity/Vol]72 U/DVbnb34-29Pig [facility] CenterroGeorgetown Behavioral Hospital SystemComment on above:Result Comment: Hemolysis presentPerformed By: #### HEPATIC, CH8 #### [facility] [address] [place] [address], [id number] [Mass/Vol]0.7 mg/dLNormal0.3-1.0The MetroHealth SystemComment on above:Performed By: #### HEPATIC, CH8 #### [facility] [address] [place] [address], [id number]< 0.76Xakloa9.03-0.18The [facility] CenterroHealth SystemComment on above:Performed By: #### HEPATIC, CH8 #### S [facility] [address] [place], [address]Ihbpvlb [Mass/Vol]6.9 g/dLNormal6.0-8.3The [facility] CenterroHealth SystemComment on above:Performed By: #### HEPATIC, CH8 #### S [facility] [address] [place], [address]MXRFYW ACIDOrdered By: Destiny Myles on 05-28-2025 Interpretation and review of laboratory resultsAbnormalMetroHealthLactate [Moles/Vol]2.1 mmol/LHigh0.5 - 1.6 mmol/LMetroHealthThis test was developed, and its performance characteristics determined by the Department of Pathology of [facility]. It has not been cleared or approved by the FDA. This test is used forclinical purposes only.[facility] CenterroHealthMetroHealthLACTIC ACIDon [id number] LACT2.1 mmol/LHigh0.5-1.6The [facility] SystemComment on above: Order Comment: This test was developed, and its performance characteristics determined by the Department of Pathology of [facility]. It has not been cleared or approved by the FDA. This test is used for clinical purposes only.Performed By: #### LACT #### S [facility] [address] [place] [address], [phone] Noteson [id number] Authentication Interface Message TextInternal Medicine Fci Plan Note Patient: Delmis Mtz Admission Date: 05/28/2025 Assessment AND Plan: Delmis Mtz, 65 year old female presenting with diffuse rash. PMHx of HTN, HLD, GERD . A/P #Diffuse skin rash -Ddx: medication induced SJS/TEN vs. 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 -?paraneoplastic dermatoses) OR autoimmune etiology -List of recently prescribed abx: Clindamycin for toenail infection by podiatry (05/19/25-stopped 05/24/25) Ancef (intra-op) on 05/12 Cephalexin 500mg BID for UTI by PCP(05/27/25-) -No mucosal involvement on exam including genital region, only dry lips -s/p steroid injections 05/26-05/27, then on prednisone 10mg daily without improvement -Derm consulted at ED, recs appreciated Plan: -If rash opens/worsening, to get burn unit involved again for possible transfer for wound management -Continue supportive care -Monitor for wounds, possible secondary infections/organ dysfunction -To consider systemic steroids vs. IVIG vs. Cyclosporine pending clinical progression -f/u derm pathology and recs -f/u uric acid, CpK #Leukocytosis -Likely in the setting of recent steroid use Plan: -infection workup as below #Dysuria -reports dysuria with discharge, was prescribed cephalexin by PCP but still with symptoms Plan: -f/u UA #Elevated transanimates -ALT 79, AST 72 (hemolyzed) -Ddx: infection vs. SJS associated liver injury Plan: -Repeat LFT -f/u hepatitis panel #HTN #HLD -Continue home losartan 100mg, coreg 25mg BID, Lipitor 10mg (in [place] of home simvastatin 20mg) -Hold home lasix 40mg due to concern for dehydration #GERD -Continue home omeprazole 40mg Remainder of plan per Dr. Condon's note. Moiz Birmingham MD Internal Medicine Resident PGY-2 Available via Gratafy Chat Subjective: HPI: Per patient, Noticed rash started 05/24/25 from lower abdomen, but liekly also started from back that she did not initially notice, then spread all over her body including face and lower extremities. 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 Interventions: - Benadryl 25mg PO [x] Care Everywhere Records Reviewed [] Medication fill history reviewed-unavailable; confrimed with patient that she takes all her home medications [x] Code Status verified - Full Code Objective: Most Recent Vitals: Temp 98.1 HR 60 BP 124/109 RR 18 SpO2 99% on RA Weight 297 lbs Pertinent Exam Findings: Diffuse rash (Refer to media for pictures) with erythema on anterior abdomen and back including neck Petechial rash on lower extremities No mucosal involvement, dry lips Pertinent Labs/Imaging: Leukocytosis WBC 22.2 > 19.4 AST 79 AST 72 CRP 4.5 CXR wnlNormalThe [email or web address] SystemTranscription Authentication Interface Message TextMICU Triage Note Unit Requested: MICU Triage Decision: MICU Final Disposition: MICU Julia Markham [email or web address] SystemXR CHEST AP OR PA 1 VIEWon [id number] CHEST AP OR PA 1 VIEWEXAMINATION: XR CHEST AP OR PA 1 VIEW 05/28/2025 02:37 PM CLINICAL HISTORY: sjs concern ASSOCIATED DIAGNOSIS: sjs concern ORDERING PROVIDER: JOHN ARREOLA TECHNOLOGISTS NOTE: COMPARISON: None FINDINGS: Generalized opacification of the lungs secondary to soft tissue. Lines, tubes, and devices: None. Lungs and pleura: No focal pulmonary consolidation, effusion or pneumothorax. Cardiomediastinal silhouette: Normal cardiomediastinal silhouette. Musculoskeletal: Unremarkable. IMPRESSION: No acute radiographic abnormality identified. MACRO: None I have personally reviewed the images and agree with the resident's interpretation.NormalThe MetroHealth SystemXR Chest Single viewon 05-28-2025 EXAMINATION: XR CHEST AP OR PA 1 VIEW 05/28/2025 02:37 PM CLINICAL HISTORY: sjs concern ASSOCIATED DIAGNOSIS: sjs concern ORDERING PROVIDER: JOHN LUBIN NOTE: COMPARISON: None FINDINGS: Generalized opacification of the lungs secondary to soft tissue. Lines, tubes, and devices: None. Lungs and pleura: No focal pulmonary consolidation, effusion or pneumothorax. Cardiomediastinal silhouette: Normal cardiomediastinal silhouette. Musculoskeletal: Unremarkable. IMPRESSION: No acute radiographic abnormality identified. MACRO: None I have personally reviewed the images and agree with the resident's interpretation. Estephania Jacobs MD - 05/28/2025 EXAMINATION: XR CHEST AP OR PA 1 VIEW 05/28/2025 02:37 PM CLINICAL HISTORY: sjs concern ASSOCIATED DIAGNOSIS: sjs concern ORDERING PROVIDER: JOHN LUBIN NOTE: COMPARISON: None FINDINGS: Generalized opacification of the lungs secondary to soft tissue. Lines, tubes, and devices: None. Lungs and pleura: No focal pulmonary consolidation, effusion or pneumothorax. Cardiomediastinal silhouette: Normal cardiomediastinal silhouette. Musculoskeletal: Unremarkable. IMPRESSION: No acute radiographic abnormality identified. MACRO: None I have personally reviewed the images and agree with the resident's interpretation. MetroHealthRadiology Study observation (narrative)MetroHealthXR Chest Single viewOrdered By: Estephania Alcantara on [id number] Work Phone: aBO Rh Repeaton [phone] Health System Rh Nom (Bld)PositiveProRiverview Health InstituteProRiverview Health InstituteCOMPREHENSIVE METABOLIC PANELon [id number] [Mass/Vol]4.1 g/dLNormal3.2-5.3PWestern Reserve HospitalComment on above:Performed By: #### CMP #### [facility] ([facility]) [address] [place] [address] VIRALP [Catalytic activity/Vol]80 U/EYflnic14-557RfmWmcuqz [place] HospitalComment on above:Performed By: #### CMP #### [facility] ([facility]) [address] [place] [address] VIRALT [Catalytic activity/Vol]10 U/LNormal<=31ProMedHolzer Health System HospitalComment on above:Performed By: #### CMP #### [facility] ([facility]) [address] [place] [address] VIRAnion gap [Moles/Vol]6 mmol/LNormal5-15[facility] HospitalComment on above:Performed By: #### CMP #### [facility] ([facility]) [address] [place] [address] VIRAST [Catalytic activity/Vol]13 U/LNormal<=41[facility] HospitalComment on above:Performed By: #### CMP #### [facility] ([facility]) [address] [place] [address] VIRBilirubin [Mass/Vol]0.6 mg/dLNormal0.3-1.2ProMedHolzer Health System HospitalComment on above:Performed By: #### CMP #### [facility] ([facility]) [address] [place] [address] VIRCalcium [Mass/Vol]9.0 mg/dLNormal8.5-10.5ProMedHolzer Health System HospitalComment on above:Performed By: #### CMP #### [facility] ([facility]) [address] [place] [address] VIRChloride [Moles/Vol]105 mmol/OYczizg63-311EqiWgstsp [facility] HospitalComment on above:Performed By: #### CMP #### [facility] ([facility]) [address] [place] [address] VIRCO2 [Moles/Vol]30 mmol/YJlethn28-57FojGelmoy [facility] Comment on above:Performed By: #### CMP #### [facility] ([facility]) [address] [place] [address] VIRCreatinine [Mass/Vol]0.92 mg/dLNormal0.40-1.00ProWvumedicine Harrison Community Hospitalca [place] HospitalComment on above:Result Comment: METHOD TRACEABLE TO IDMS STANDARDPerformed By: #### CMP #### [facility] ([facility]) [address] [place] [address] VIRGFR/1.73 sq M.predicted among non-blacks MDRD (S/P/Bld) [Vol rate/Area]68 mL/min/{1.73_m2}Normal>=60ProWvumedicine Harrison Community Hospitalca [place] HospitalComment on above:Result Comment: Reported eGFR is based on the CKD-EPI 2020 equation that does not use a race coefficient.Performed By: #### CMP #### [facility] ([facility]) [address] [place] [address] VIRGlucose [Mass/Vol]105 mg/rQSfmf93-20AiqGdrnej [place] HospitalComment on above:Performed By: #### CMP #### [facility] ([facility]) [address] [place] [address] VIRPotassium [Moles/Vol]3.8 mmol/LNormal3.5-5.0ProOhio State Health System HospitalComment on above:Performed By: #### CMP #### [facility] ([facility]) [address] [place] [address] VIRProtein [Mass/Vol]7.0 g/dLNormal6.0-8.0ProOhio State Health System HospitalComment on above:Performed By: #### CMP #### [facility] ([facility]) [address] [place] [address] VIRSodium [Moles/Vol]141 mmol/UAputxw721-378GajJvjynp [place] HospitalComment on above:Performed By: #### CMP #### [facility] ([facility]) [address] [place] [address] VIRUrea nitrogen [Mass/Vol]16 mg/dLNormal5-27Akron Children's HospitalComment on above:Performed By: #### CMP #### [facility] ([facility]) [address] [place] [address] VIRComprehensive metabolic panelon 13-01-1837Fqnwtyn [Mass/Vol] 4.1 g/dL3.2 - 5.3 g/dLProHill Hospital Of Sumter County Health SystemALP [Catalytic activity/Vol]80 U/L 39 - 130 U/[facility] SystemALT No additional P-5'-P [Catalytic activity/Vol]10 U/LNINF - 31 U/[facility] Health SystemAnion gap [Moles/Vol]6 mmol/L5 - 15 mmol/[facility] Health SystemAST [Catalytic activity/Vol]13 U/LNINF - 41 U/[facility] SystemBilirubin [Mass/Vol]0.6 mg/dL0.3 - 1.2 mg/dL ProMMaple Grove Hospital SystemCalcium [Mass/Vol]9 mg/dL8.5 - 10.5 mg/dLProCleveland Clinic Mentor Hospital SystemChloride [Moles/Vol]105 mmol/L98 - 109 mmol/[facility] Health SystemCO2 [Moles/Vol]30 mmol/L22 - 32 mmol/[facility] SystemCreatinine [Mass/Vol] 0.92 mg/dL0.40 - 1.00 mg/dLKettering Health DaytonComment on above:METHOD TRACEABLE TO [facility] STANDARDEGFR Non-Race Hrlamgmzy88- [facility] Comment on above:Reported eGFR is based on the CKD-EPI 2020 equation that does not use a race coefficient. Glucose [Mass/Vol]105 mg/zNMsyn67 - 99 mg/dLKettering Health Dayton Interpretation and review of laboratory resultsAbnormalUniversity Hospitals [facility]ly[facility] System Potassium [Moles/Vol]3.8 mmol/L3.5 - 5.0 mmol/LPrLiberty Hospitalica Health SystemProtein [Mass/Vol]7 g/dL6.0 - 8.0 g/dLUniversity Hospitals Ely[facility] Medical [facility] SystemSodium [Moles/Vol]141 mmol/L134 - 146 mmol/LProMedica Health SystemUrea nitrogen [Mass/Vol]16 mg/dL5 - 27 mg/dLKettering Health DaytonProRiverview Health InstituteTYPE AND SCREENon 41-13-5228TCA_UBVNMWTbnjyeAscZueydp [place] HospitalComment on above:Performed By: #### TSC #### [facility] ([id number]) [address] [place] [address] VIRPerformed By: #### ABORHR #### [facility] ([id number]) [address] [place] [address] VIRRH_INTEPPositiveUniversity Hospitals Health System HospitalComment on above:Performed By: #### TSC #### [facility] ([id number]) [address] [place] [address] VIRPerformed By: #### ABORHR #### [facility] ([id number]) [address] [place] [address] VIRType and screen(includes indirect nathan)on 39-28-3253ODET [facility] DaytonRh Nom (Bld)PositiveSt. Christopher's Hospital for ChildrenALL CBC WITH AUTO DIFFon 17-05-3345TJSZGNBRG ABSOLUTE AUTO0.1NOMS HealthcareBasophils/100 WBC (Bld)0.8 %0.2 - 2.0 %NOMS HealthcareEosinophils/100 WBC (Bld)0.8 %Low0.9 - 7.0 %NOMS HealthcareErythrocyte distribution width (RBC) [Ratio]12.8 %11.0 - 15.0 %NOMS HealthcareHematocrit (Bld) [Volume fraction]39.4 %36.0 - 48.0 %NOMS HealthcareHemoglobin (Bld) [Mass/Vol]12.8 g/dL12.0 - 16.0 g/dLNOMS HealthcareIMMATURE GRANULOCYTES ABS AUTO0.03NOMS HealthcareImmature granulocytes/100 WBC (Bld)0.5 %0.0 - 0.5 %NOMS HealthcareInterpretation and review of laboratory resultsAbnormalNOMS HealthcareLYMPHOCYTES ABSOLUTE AUTO1.1 LowNOMS HealthcareLymphocytes/100 WBC (Bld)17.2 %Low20.5 - 60.0 %[facility] MCH (RBC) [Entitic mass]28.9 pg26.7 - 34.0 pgNOJohn J. Pershing VA Medical CenterMCHC (RBC) [Mass/Vol]32.5 g/dL29.9 - 35.2 g/dLLee's Summit HospitalMCV (RBC) [Entitic vol]88.9 fL 81.0 - 99.0 fLLee's Summit HospitalMONOCYTES ABSOLUTE AUTO0.4NOJohn J. Pershing [facility] Center Monocytes/100 WBC (Bld)6.2 %1.7 - 12.0 %[facility] HospitalNEUTROPHILS ABSOLUTE AUTO 4.6NOJohn J. Pershing VA Medical CenterNeutrophils/100 WBC (Bld)74.5 %43.0 - 75.0 %[facility] Platelet mean volume (Bld) [Entitic vol]10.7 fL9.5 - 13.5 fLLee's Summit HospitalTB EO #0.1NOMS HealthcareTB VEO534VVRH [facility] RBC4.43NOMS [facility] WBC 6.1NOMS HealthcareCLINISYNCNMetropolitan Saint [facility] Center BASIC METABOLIC PANELon 04-01-2025 Anion gap [Moles/Vol]14.7 mmol/LNOMS HealthcareCalcium [Mass/Vol]9 mg/dL8.5 - 10.1 mg/dLBRIGHAM CITY COMMUNITY [facility]PITAL HealthcareChloride [Moles/Vol]105 mmol/L98 - 107 mmol/LNOMS HealthcareCO2 [Moles/Vol]29.7 mmol/L21.0 - 32.0 mmol/LNOMS HealthcareCreatinine [Mass/Vol]0.91 mg/dL0.55 - 1.02 mg/dLBRIGHAM CITY COMMUNITY [facility]OSPITAL HealthcareGFR/1.73 sq M.predicted CKD- EPI (S/P/Bld) [Vol rate/Area]>60>=60 mL/min/1.[address]m [address] [place], [place] [address]Glucose [Mass/Vol]112 mg/uIMnad96 - 106 mg/dLLee's Summit HospitalInterpretation and review of laboratory resultsAbnormalNOJohn J. Pershing VA Medical CenterPotassium [Moles/Vol]4.4 mmol/L3.5 - 5.1 mmol/LNOMS HealthcareSodium [Moles/Vol]145 mmol/L136 - 145 mmol/LNOMS Wayne HospitalTB EGFR-NON AF MARTINIQUAIS>60>=60 mL/min/1.73m 2NOMS HealthcareUrea nitrogen [Mass/Vol]19 mg/dLHigh7.0 - 18.0 mg/dLNOMS HealthcareUrea nitrogen/Creatinine [Mass ratio]20.9 mg/mgNOMS HealthcareCLINISYNCNOMS HealthcareECG 12-LEADon 48-06-8323[place] [id number] Electrocardiograph Report Signed Patient: DELMIS MTZ MR#: [id number] : 1960 Acct:[id number] Age/Sex: 64 / F ADM Date: 04/01/25 Loc: PST Attending Dr: Yovani Valdez D.O. Ordering Physician: Yovani Valdez D.O. 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 Measurements Intervals Wolsey Rate: 55 P: 40 IA: 162 QRS: 30 QRSD: 89 T: 23 QT: 414 QTc: 398 Interpretive Statements SINUS BRADYCARDIA Borderline ECG Compared to ECG 01/04/2017 20:11:26 Heart rate has decreased Electronically Signed On 04-01-2025 18:34:40 EDT by MAC ECHOLS M.D. Dictated By: MAC ECHOLS Signed By: 04/01/25 1835 DD/ 0953 TD/TT: Expeller Operator:TBHRadiology, Radiologist, - 04/01/2025 [place] [address] Electrocardiograph Report Signed Patient: DELMIS MTZ MR#: [id number] : 1960 Acct:[id number] Age/Sex: 64 / F ADM Date: 04/01/25 Loc: PST Attending Dr: Yovani Valdez D.O. Ordering Physician: Yovani Valdez D.O. 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 Measurements Intervals Wolsey Rate: 55 P: 40 IA: 162 QRS: 30 QRSD: 89 T: 23 QT: 414 QTc: 398 Interpretive Statements SINUS BRADYCARDIA Borderline ECG Compared to ECG 01/04/2017 20:11:26 Heart rate has decreased Electronically Signed On 04-01-2025 18:34:40 EDT by MAC ECHOLS M.D. Dictated By: MAC ECHOLS Signed By: 04/01/25 183 DD/ 0953 TD/TT: Expeller Operator: [facility] HealthcareRadiology Study observation (narrative)[facility] 12-LEAD Ordered By: Radiologist Radiology on 50-32-2820SMEJ [employer] Work Phone: US PELVIC COMPLETE W/ TVon 24-31-7119NA PELVIC COMPLETE W/ TVEXAM: US PELVIC COMPLETE W/ TV HISTORY: Postmenopausal [...] II, MD, PHD at 19-Mar-2025 08:43:41 AM [facility] TeleradiologyNormalNot AvailableComment on above:Order Comment: US PELVIS-TRANSVAG IF INDICATED No LMP recorded.INSULINon 16-72-2158Dxphnsn32.6 uIU/mLNormal2.6-24.9The [facility] CenterComment on above:Performed By: #### INSULIN #### [facility] [address] [address] [address] Ghassan Hussein 25-[place] LABCORPon 00-48-0271Dzmkcqa D, 25-Aumqivd77.2 ng/mL Yfntmp61.0-100.0The [facility] CenterComment on above:Result Comment: Vitamin D deficiency has been defined by the [place] of Medicine and an Endocrine Society practice guideline as a level of serum 25-OH vitamin D less than 20 ng/mL (1,2). The Endocrine Society went on to further define vitamin D insufficiency as a level between 21 and 29 ng/mL (2). 1. IOM ([place] of Medicine). 2010. Dietary reference intakes for calcium and D. [place]: The National Academies Press. 2. Nadia MF, [place], Sha-Hao AABD, et al. Evaluation, treatment, and prevention of vitamin D deficiency: an Endocrine Society clinical practice guideline. JCEM. 2010; 96(7):1911-30.Performed By: #### IRON #### [facility] [address] [address] Katherin KarenCBC AUTO DIFFon 86-76-3747ELCQ #0.0 103/ulNormal0.0-0.1The [facility] Medical CenterComment on above:Performed By: #### IRON #### [facility] [address] [id number] Katherin KarenBasophils/100 WBC (Bld)0.7 %Normal0.2-2.0The [facility] Comment on above:Performed By: #### IRON #### [facility] [address] [address] Katherin KarenEO #0.1 103/ulNormal0.0-0.7The [facility] CenterComment on above: Performed By: #### IRON #### [facility] [address] [place] [address] Katherin KarenEosinophils/100 WBC (Bld)1.1 %Normal0.9-7.0[facility] Comment on above:Performed By: #### IRON #### [facility] [address] [place] [address] Katherin KarenErythrocyte distribution width (RBC) [Ratio]12.8 %Utleqh68.0-15.0The [facility] CenterComment on above:Performed By: #### IRON #### [facility] [address] [place] [address] Katherin KarenHematocrit (Bld) [Volume fraction]40.9 %Pmahrf91.0-48.0The [facility] CenterComment on above:Performed By: #### IRON #### [facility] [address] [place] [address] Katherin KarenHemoglobin (Bld) [Mass/Vol]13.3 g/mCQcozrx24.0-16.0The [facility] CenterComment on above:Performed By: #### IRON #### [facility] [address] [place] [address] Katherin KarenIG #0.01 10e3/ulNormal0.00-0.03The [facility] CenterComment on above:Performed By: #### IRON #### [facility] [address] [place] [address] Katherin KarenIG %0.2 %Normal0.0-0.5The [facility] CenterComment on above: Performed By: #### IRON #### [facility] [address] [place] [address] Katherin KarenLYMPH #1.0 103/ulCritically low1.2-3.8The [facility] CenterComment on above:Performed By: #### IRON #### [facility] [address] [place] [address] Katherin KarenLymphocytes/100 WBC (Bld)18.7 %Critically low20.5-60.0The [facility] CenterComment on above:Performed By: #### IRON #### [facility] [address] [place] [address] Katherin KarenMANUAL DIFF REQNONormalThe [facility] CenterComment on above: Performed By: #### IRON #### [facility] [address] [place] [address] Katherin KarenMCH (RBC) [Entitic mass]28.8 opKyumwi52.7-34.0The [facility] Comment on above:Performed By: #### IRON #### [facility] [address] [place] [address] Katherin KarenHC (RBC) [Mass/Vol]32.5 g/kPGgillx85.9-35.2[facility] Comment on above:Performed By: #### IRON #### [facility] [address] [place] [address] Katherin KarkalebMCV (RBC) [Entitic vol]88.5 bECnjchi06.0-99.0[facility] Comment on above:Performed By: #### IRON #### [facility] [address] [place] [address] Katherin KarenMONO #0.4 103/ulNormal0.3-0.8The [facility] CenterComment on above: Performed By: #### IRON #### [facility] [address] [place] [address] Katherin KarenMonocytes/100 WBC (Bld)7.8 %Normal1.7-12.0The [facility] Comment on above:Performed By: #### IRON #### [facility] [address] [place] [address] Katherin KarenNEUT #3.9 103/ulNormal1.4-6.5The [facility] CenterComment on above: Performed By: #### IRON #### [facility] [address] [place] [address] Katherin KarenNeutrophils/100 WBC (Bld)71.5 %Ddqmpm97.0-75.0The [facility] Comment on above:Performed By: #### IRON #### [facility] [address] [address] Kahterin ArroyoPlatelet mean volume (Bld) [Entitic vol]11.0 fLNormal9.5-13.5The [facility] CenterComment on above:Performed By: #### IRON #### [facility] [address] [place] [address] Katherin BatistaWcymxQZJ433 103/xgQumlgc420-397Lce [facility] CenterComment on above: Performed By: #### IRON #### [facility] [address] [place] [address] Katherin BatistaenRBC4.62 106/ulNormal4.20-5.40The [facility] CenterComment on above: Performed By: #### IRON #### [facility] [address] [place] [address] Katherin BatistaenWBC5.5 103/ulNormal4.0-11.0The [facility] CenterComment on above: Performed By: #### IRON #### [facility] [address] [place] [address] Katherin ArroyoFRBELGICA THYROXINE INDEX T7on 08-47-1518WZL5.77Apmxiv7.30-4.50[facility] HospitalComment on above:Performed By: #### LIPID, T7, TSH, CMP #### [facility] [address] [place] [address] Dr. Ghassan MenaT3U31.0 %Csmwkz20.0-39.0The [facility] CenterComment on above: Performed By: #### LIPID, T7, TSH, CMP #### [facility] [address] [place] [address] Dr. Ghassan MenaT4 [Mass/Vol]9.50 ug/dLNormal4.80-13.90The [facility] Comment on above:Performed By: #### LIPID, T7, TSH, CMP #### [facility] [address] [place] [address] Dr. Ghassan MenaGLYCOHEMOGLOBIN A1Con 48-96-6760TSG RECOMMENDATIONSEE BELOWNormal The [facility] CenterComment on above:Result Comment: ADA RECOMMENDED LIMIT 4.0 - 6.0 ADA THERAPEUTIC TARGET < 7.0 ACTION SUGGESTED > 7.0Performed By: #### A1C #### [facility] [address] [address] [address] Ghassan MenaGlucose [Mass/Vol]131 mg/dLNoMercy Health Perrysburg HospitalComment on above:Performed By: #### A1C #### [facility] [address] [place] [address] Dr. Ghassan MenaHbA1c (Bld) [Mass fraction]6.2 %Normal4.5-6.2The [facility] CenterComment on above:Performed By: #### A1C #### [facility] [address] [place] [address] Dr. Ghassan Lay 36-01-6086Bcqz [Mass/Vol]54.0 ug/lUUttroy56.0-170.0The [facility] CenterComment on above:Performed By: #### IRON #### [facility] [address] [place] [address] Dr. Ghassan HidalgoID PROFILEon 94-94-4475NTMQ-HDL RATIO NORMSEE BELOWShelby Memorial HospitalComment on above:Result Comment: 3.3 - 4.4 LOW RISK 4.4 - 7.1 AVERAGE RISK 7.1 - 11.0 MODERATE RISK >11.0 HIGH RISKPerformed By: #### LIPID, T7, TSH, CMP #### [facility] [address] [place] [address] Dr. Ghassan MenaCholesterol [Mass/Vol]143 mg/dLNormal<=200The [facility] Comment on above:Performed By: #### LIPID, T7, TSH, CMP #### [facility] [address] [place] [address] Dr. Ghassan MenaCholesterol in HDL [Mass/Vol]50 mg/oRQdzfvr76-79Bsj [facility] CenterComment on above:Performed By: #### LIPID, T7, TSH, CMP #### [facility] [address] [address] [address] Ghassan Monahanesterol in LDL [Mass/Vol]76.8 mg/dLShelby Memorial HospitalComment on above:Performed By: #### LIPID, T7, TSH, CMP #### [facility] [address] [address] [address] Ghassan Do.total/Cholesterol in HDL [Mass ratio]2.9 {ratio} NormalThe [facility] CenterComment on above:Performed By: #### LIPID, T7, TSH, CMP #### [facility] [address] [address] [address] Ghassan Chambers NORMAL> or = 60 mg/dl - LOW CARDIOVASCULAR RISK <40 mg/dl - HIGH CARDIOVASCULAR RISKShelby Memorial HospitalComment on above:Performed By: #### LIPID, T7, TSH, CMP #### [facility] [address] [address] [address] Ghassan Trujillo CALC NORMALSEE BELOWNoMercy Health Perrysburg HospitalComment on above:Result Comment: <100 mg/dl OPTIMAL 100 - 129 mg/dl NEAR OR ABOVE OPTIMAL 130 - 159 mg/dl BORDERLINE HIGH 160 - 189 mg/dl HIGH >190 mg/dl VERY HIGH Performed By: #### LIPID, T7, TSH, CMP #### [facility] [address] [address] [address] Ghassan MenaTriglyceride [Mass/Vol]81 mg/dLNormal<=150The [facility] Comment on above:Performed By: #### LIPID, T7, TSH, CMP #### [facility] [address] [address] [address] Ghassan MeiLDL CALC16.2 mg/dLNoMercy Health Perrysburg HospitalComment on above: Performed By: #### LIPID, T7, TSH, CMP #### [facility] [address] [place] [address] Dr. Ghassan MenaPROF 14(COMP METB)on 41-91-7514Bxcavvd [Mass/Vol]3.5 g/dLNormal 3.4-5.0The [facility]ime HospitalComment on above:Performed By: #### LIPID, T7, TSH, CMP #### [facility] [address] [address] [address] Ghassan MenaAlbumin/Globulin [Mass ratio]0.9 {ratio}NormalThe [facility] CenterComment on above:Performed By: #### LIPID, T7, TSH, CMP #### [facility] [address] [place] [address] Dr. Ghassan Cruz [Catalytic activity/Vol]83 U/WZxipdw09-918Wku [facility] CenterComment on above:Performed By: #### LIPID, T7, TSH, CMP #### [facility] [address] [place] [address] Dr. Ghassan Reyes [Catalytic activity/Vol]14 U/ZTeqhex87-12Hqt [facility] CenterComment on above:Performed By: #### LIPID, T7, TSH, CMP #### [facility] [address] [place] [address] Dr. Ghassan Hagen gap [Moles/Vol]11.3 mmol/LNormalThe [facility] Comment on above:Performed By: #### LIPID, T7, TSH, CMP #### [facility] [address] [place] [address] Dr. Ghassan Gomez [Catalytic activity/Vol]11 U/LCritically jvd66-83Qgl [facility] CenterComment on above:Performed By: #### LIPID, T7, TSH, CMP #### [facility] [address] [place] [address] Dr. Ghassan MenaBilirubin [Mass/Vol]0.5 mg/dLNormal0.2-1.0The [facility] Comment on above:Performed By: #### LIPID, T7, TSH, CMP #### [facility] [address] [place] [address] Dr. Ghassan MenaCalcium [Mass/Vol]8.9 mg/dLNormal8.5-10.1[facility] Comment on above:Performed By: #### LIPID, T7, TSH, CMP #### [facility] [address] [address] [address] Ghassan MenaChloride [Moles/Vol]105 mmol/BBnbagx59-232Myc [facility] Comment on above:Performed By: #### LIPID, T7, TSH, CMP #### [facility] [address] [place] [address] Dr. Ghassan MenaCO2 [Moles/Vol]27.8 mmol/EFeylnb82.0-32.0The [facility] Comment on above:Performed By: #### LIPID, T7, TSH, CMP #### [facility] [address] [place] [address] Dr. Ghassan MenaCreatinine [Mass/Vol]0.70 mg/dLNormal0.55-1.02The [facility] CenterComment on above:Performed By: #### LIPID, T7, TSH, CMP #### [facility] [address] [place] [address] Dr. Ghassan BowensGFR-AF MARTINIQUAIS>60Normal>=60The [facility] CenterComment on above:Performed By: #### LIPID, T7, TSH, CMP #### [facility] [address] [place] [address] Dr. Ghassan BowensGFR-NON AF MARTINIQUAIS>60Normal>=60The [facility] CenterComment on above:Performed By: #### LIPID, T7, TSH, CMP #### [facility] [address] [place] [address] Dr. Ghassan MenaGlobulin (S) [Mass/Vol]3.8 g/dLNormalThe [facility] CenterComment on above:Performed By: #### LIPID, T7, TSH, CMP #### [facility] [address] [place] [address] Dr. Ghassan MenaGlucose [Mass/Vol]109 mg/dLCritically fhtu36-129Eka [facility] CenterComment on above:Performed By: #### LIPID, T7, TSH, CMP #### [facility] [address] [place] [address] Dr. Ghassan MenaPotassium [Moles/Vol]4.1 mmol/LNormal3.5-5.1The [facility] Comment on above:Performed By: #### LIPID, T7, TSH, CMP #### [facility] [address] [place] [address] Dr. Ghassan MenaProtein [Mass/Vol]7.3 g/dLNormal6.4-8.2The [facility] Comment on above:Performed By: #### LIPID, T7, TSH, CMP #### [facility] [address] [place] [address] Dr. Ghassan MenaSodium [Moles/Vol]140 mmol/NQntisq012-817Iyn [facility] Comment on above:Performed By: #### LIPID, T7, TSH, CMP #### [facility] [address] [place] [address] Dr. Ghassan MenaUrea nitrogen [Mass/Vol]16.0 mg/dLNormal7.0-18.0The [facility] CenterComment on above:Performed By: #### LIPID, T7, TSH, CMP #### [facility] [address] [place] [address] Dr. Ghassan Caceres nitrogen/Creatinine [Mass ratio]22.9 mg/mgNormalThe [facility] CenterComment on above:Performed By: #### LIPID, T7, TSH, CMP #### [facility] [address] [place] [address] Dr. Ghassan Kang 35-68-1237ZFJ1.630 uIU/mLNormal0.358-3.740The [facility] CenterComment on above:Performed By: #### LIPID, T7, TSH, CMP #### [facility] [address] [place] [address] Dr. Ghassan MenaINSULINon 40-77-3477Xauhwuz9.9 uIU/mLNormal2.6-24.9The [facility] CenterComment on above:Performed By: #### INSULIN #### [facility] [address] [place] [address] Katherin BatistaenCBC AUTO DIFFon 77-26-2850YKQO #0.1 103/ulNormal0.0-0.1The [facility] CenterComment on above:Performed By: #### IRON #### [facility] [address] [id number] Katherin KarenBasophils/100 WBC (Bld)1.0 %Normal0.2-2.0The [facility] Comment on above:Performed By: #### IRON #### [facility] [address] [place] [address] Katherin KarenEO #0.1 103/ulNormal0.0-0.7The [facility] CenterComment on above: Performed By: #### IRON #### [facility] [address] [place] [address] Katherin KarenEosinophils/100 WBC (Bld)1.2 %Normal0.9-7.0The [facility] Comment on above:Performed By: #### IRON #### [facility] [address] [place] [address] Katherin KarenErythrocyte distribution width (RBC) [Ratio]13.1 %Eyokso92.0-15.0The [facility] CenterComment on above:Performed By: #### IRON #### [facility] [address] [place] [address] Katherin KarenHematocrit (Bld) [Volume fraction]40.6 %Pqzgew18.0-48.0The [facility] CenterComment on above:Performed By: #### IRON #### [facility] [address] [place], [place] [id number] Katherin KarenHemoglobin (Bld) [Mass/Vol]13.1 g/bXRuuxpy60.0-16.0The [facility] CenterComment on above:Performed By: #### IRON #### [facility] [address] [place] [address] Katherin KarenIG #0.01 10e3/ulNormal0.00-0.03The [facility] CenterComment on above:Performed By: #### IRON #### [facility] [address] [place] [address] Katherin KarenIG %0.2 %Normal0.0-0.5The [facility] CenterComment on above: Performed By: #### IRON #### [facility] [address] [address] Katherin KarenLYMPH #1.2 103/ulNormal1.2-3.8The [facility] CenterComment on above: Performed By: #### IRON #### [facility] [address] [address] Katherin KarenLymphocytes/100 WBC (Bld)22.1 %Qpzkqn24.5-60.0[facility] Comment on above:Performed By: #### IRON #### [facility] [address] [place] [address] Katherin KarenMANUAL DIFF REQNONormalThe [facility] Medical CenterComment on above: Performed By: #### IRON #### [facility] [address] [place] [address] Katherin KarenMCH (RBC) [Entitic mass]29.1 xmKkkrfh72.7-34.0[facility] Comment on above:Performed By: #### IRON #### [facility] [address] [place] [address] Katherin KarenMCHC (RBC) [Mass/Vol]32.3 g/qOIplkgc95.9-35.2[facility] Comment on above:Performed By: #### IRON #### [facility] [address] [place] [address] Katherin KarenMCV (RBC) [Entitic vol]90.2 qOYuruob03.0-99.0[facility] Comment on above:Performed By: #### IRON #### [facility] [address] [place] [address] Katherin KarenMONO #0.5 103/ulNormal0.3-0.8The [facility] CenterComment on above: Performed By: #### IRON #### [facility] [address] [address] Katherin KarenMonocytes/100 WBC (Bld)9.0 %Normal1.7-12.0[facility] Comment on above:Performed By: #### IRON #### [facility] [address] [place] [address] Katherin KarenNEUT #3.5 103/ulNormal1.4-6.5The [facility] CenterComment on above: Performed By: #### IRON #### [facility] [address] [place] [address] Katherin KarenNeutrophils/100 WBC (Bld)66.5 %Ycxhij56.0-75.0The [facility] Comment on above:Performed By: #### IRON #### [facility] [address] [place] [address] Katherin KarenPlatelet mean volume (Bld) [Entitic vol]11.0 fLNormal9.5-13.5The [facility] CenterComment on above:Performed By: #### IRON #### [facility] [address] [place] [address] Katherin LrjadWBL028 103/neZnweav581-927Vyo [facility] CenterComment on above: Performed By: #### IRON #### [facility] [address] [place] [address] Katherin KarenRBC4.50 106/ulNormal4.20-5.40The [facility] CenterComment on above: Performed By: #### IRON #### [facility] [address] [place] [address] Katherin KarenWBC5.2 103/ulNormal4.0-11.0The [facility] CenterComment on above: Performed By: #### IRON #### [facility] [address] [place] [address] Katherin KarenFREE THYROXINE INDEX T7on 93-24-1472NPD8.77NormalThSumma Health Wadsworth - Rittman Medical CenterComment on above:Performed By: #### IRON #### [facility] [address] [place] [address] Katherin JpteyA1O14.0 %Kcerfx80.5-40.5The [facility] CenterComment on above: Performed By: #### IRON #### [facility] [address] [place] [address] Katherin KarenT4 [Mass/Vol]11.10 ug/dLCritically high5.53-11.00[facility] HospitalComment on above:Performed By: #### IRON #### [facility] [address] [place] [address] Katherin KarenGLYCOHEMOGLOBIN A1Con 49-74-2528BMO RECOMMENDATIONADA THERAPEUTIC TARGET 6.0 - 7.0 ACTION SUGGESTED > 7.0NormWVUMedicine Barnesville HospitalComment on above:Performed By: #### A1C #### [facility] [address] [address] Katherin KarenGlucose [Mass/Vol]123 mg/dLNoMercy Health Perrysburg HospitalComment on above:Performed By: #### A1C #### [facility] [address] [place] [address] Katherin UkaucEqY0t (Bld) [Mass fraction]5.9 %Normal<=6.0[facility] Comment on above:Performed By: #### A1C #### [facility] [address] [place] [address] Katherin KarenIRONon 60-09-1126Kegu [Mass/Vol]64.0 ug/cUItxkfy27.0-170.0[facility] HospitalComment on above:Performed By: #### IRON #### [facility] [address] [place] [address] Katherin KarenLIPID PROFILEon [id number]-HDL RATIO NORMSEE BELOWShelby Memorial HospitalComment on above:Result Comment: 3.3 - 4.4 LOW RISK 4.4 - 7.1 AVERAGE RISK 7.1 - 11.0 MODERATE RISK >11.0 HIGH RISKPerformed By: #### IRON #### [facility] [address] [place] [address] Katherin KarenCholesterol [Mass/Vol]137 mg/dLNormal<=200[facility] Comment on above:Performed By: #### IRON #### [facility] [address] [place] [address] Katherin KarenCholesterol in HDL [Mass/Vol]52 mg/dLNormalThe [facility] Comment on above:Performed By: #### IRON #### [facility] [address] [place] [address] Katherin KarenCholesterol in LDL [Mass/Vol]72.2 mg/dLShelby Memorial Hospital Comment on above:Performed By: #### IRON #### [facility] [address] [place] [address] Katherin KarenCholesterol.total/Cholesterol in HDL [Mass ratio]2.6 {ratio}Normal [facility] HospitalComment on above:Performed By: #### IRON #### [facility] [address] [place] [address] Katherin KarenHDL NORMAL> or = 60 mg/dl - LOW CARDIOVASCULAR RISK <40 mg/dl - HIGH CARDIOVASCULAR RISKShelby Memorial HospitalComment on above:Performed By: #### IRON #### [facility] [address] [place] [address] Katherin KarenLDL CALC NORMALSEE BELOWShelby Memorial HospitalComment on above: Result Comment: <100 mg/dl OPTIMAL 100 - 129 mg/dl NEAR OR ABOVE OPTIMAL 130 - 159 mg/dl BORDERLINE HIGH 160 - 189 mg/dl HIGH >190 mg/dl VERY HIGHPerformed By: #### IRON #### [facility] [address] [place] [address] Katherin KarenTriglyceride [Mass/Vol]64 mg/dLNormal<=150[facility] Comment on above:Performed By: #### IRON #### [facility] [address] [place] [address] Katherin KarenVLDL CALC12.8 mg/dLShelby Memorial HospitalComment on above: Performed By: #### IRON #### [facility] [address] [place] [address] Katherin KarenPROF 14(COMP METB)on 43-69-2181Scawhob [Mass/Vol]3.7 g/dLNormal 3.5-5.0[facility] HospitalComment on above:Performed By: #### IRON #### [facility] [address] [id number] Katherin KarenAlbumin/Globulin [Mass ratio]0.9 {ratio}NormalTrumbull Memorial Hospital Comment on above:Performed By: #### IRON #### [facility] [address] [place], [place] [id number] Katherin KarenALP [Catalytic activity/Vol]85 U/GPlyxqc20-264LwwTrumbull Memorial Hospital Comment on above:Performed By: #### IRON #### [facility] [address] [place] [address] Katherin KarenALT [Catalytic activity/Vol]19 U/LNormal9-52[facility] Comment on above:Performed By: #### IRON #### [facility] [address] [place] [address] Katherin KarenAnion gap [Moles/Vol]10.6 mmol/LNormalTrumbull Memorial HospitalComment on above:Performed By: #### IRON #### [facility] [address] [place] [address] Katherin KarenAST [Catalytic activity/Vol]24 U/HZxmejt09-60NgbTrumbull Memorial Hospital Comment on above:Performed By: #### IRON #### [facility] [address] [place] [address] Katherin KarenBilirubin [Mass/Vol]0.5 mg/dLNormal0.2-1.3TLicking [facility] Comment on above:Performed By: #### IRON #### [facility] [address] [place] [address] Katherin KarenCalcium [Mass/Vol]9.2 mg/dLNormal8.4-10.2[facility] Comment on above:Performed By: #### IRON #### [facility] [address] [place] [address] Katherin KarenChloride [Moles/Vol]102 mmol/GDyngus48-811Ikx [facility] Comment on above:Performed By: #### IRON #### [facility] [address] [place] [address] Katherin KarenCO2 [Moles/Vol]31.5 mmol/LCritically high22.0-30.0[facility] HospitalComment on above:Performed By: #### IRON #### [facility] [address] [place] [address] Katherin KarenCreatinine [Mass/Vol]0.85 mg/dLNormal0.52-1.04[facility] Comment on above:Performed By: #### IRON #### [facility] [address] [place] [address] Katherin KarenEGFR-AF MARTINIQUAIS>60Normal>=60The [facility] Medical CenterComment on above: Performed By: #### IRON #### [facility] [address] [place] [address] Katherin KarenEGFR-NON AF MARTINIQUAIS>60Normal>=60The [facility] CenterComment on above:Performed By: #### IRON #### [facility] [address] [place] [address] Katherin KarenGlobulin (S) [Mass/Vol]4.0 g/dLNormalThe [facility] CenterComment on above:Performed By: #### IRON #### [facility] [address] [place] [address] Katherin KarenGlucose [Mass/Vol]99 mg/aWSvhvuo45-424Kci [facility] CenterComment on above:Performed By: #### IRON #### [facility] [address] [place] [address] Katherin KarenPotassium [Moles/Vol]4.1 mmol/LNormal3.4-5.0[facility] Comment on above:Performed By: #### IRON #### [facility] [address] [place] [address] Katherin KarenProtein [Mass/Vol]7.7 g/dLNormal6.1-8.2The [facility] CenterComment on above:Performed By: #### IRON #### [facility] [address] [place] [address] Katherin KarenSodium [Moles/Vol]140 mmol/USyzasj416-031Ood [facility] Comment on above:Performed By: #### IRON #### [facility] [address] [address] Katherin KarenUrea nitrogen [Mass/Vol]15.0 mg/dLNormal7.0-17.0[facility] HospitalComment on above:Performed By: #### IRON #### [facility] [address] [place] [address] Katherin KarenUrea nitrogen/Creatinine [Mass ratio]17.6 mg/mgNormWVUMedicine Barnesville HospitalComment on above:Performed By: #### IRON #### [facility] [address] [place] [address] Katherin KarenTSHon 34-77-3608MCM2.729 uIU/mLNormal0.470-4.680The [facility] CenterComment on above:Performed By: #### IRON #### [facility] [address] [place] [address] Katherin KarenTSH RANGESEE BELOWNoMercy Health Perrysburg HospitalComment on above:Result Comment: <0.34 UIU/ml HYPERTHYROID 0.34-5.60 UIU/ml EUTHYROID >5.60 UIU/ml HYPOTHYROIDPerformed By: #### IRON #### [facility] [address] [place] [address] Katherin Batistaen Vital Signs Date TimeVital SignValuePerforming JvshrrkksIlfohksr06-50-0339 13:24-0400Body .3 cmNicholsally Brown DPM Work Phone: [facility] HospitalDzbtoivyja34-38-7656 13:24-0400Body mass index (BMI) [Ratio]39.89 kg/l7Prznietg Brown DPM Work Phone: [facility] HospitalGzspkhqdmm76-74-6584 13:24-0400Body zeepiy570.73 kgNicholas Brown DPM Work Phone: [facility] HospitalRkbsvilfew57-39-8772 13:24-0400Respiratory rate16 /minNicvicky Brown DPM Work Phone: [facility] HospitalTcutzclozq77-66-2504 08:51-0400Body fraxrr447.6 cmCourdejon Morrisne PA Work Phone: [phone] Qzrotw55-33-3203 08:51-0400Body mass index (BMI) [Ratio]38.9 kg/q6Eugaslkf Rodriguez PA Work Phone: [phone] HospitalWind [facility] Vzttvv43-63-2401 08:51-0400Body yoxhwuphuhn01.7 [degF]Lindsay Rodriguez PA Work Phone: [phone] [place] [address] uFaber Ouyvli41-01-6009 08:51-0400Body gdfkuf529.28 kgCocony Rodriguez PA Work Phone: [phone] Nguyen StreetWind Energy Solutions Izcxfx34-79-5898 08:51-0400Diastolic blood zccrofvn44 mm[Hg]Lindsay Rodriguez PA Work Phone: [phone] Knuobv22-53-5134 08:51-0400Heart rate 54 /minCourtney Rodriguez PA Work Phone: [phone] [place] [address] uFaber Pfkpug34-77-9887 08:51-0400 Respiratory rate16 /minCourtney Rodriguez PA Work Phone: [phone] [place], [place] [address] Vjbbex62-18-7329 08:51-0928PlO5% (BldA) [Mass fraction]100 %Lindsay Rodriguez PA Work Phone: [phone] uFaber Nagdlw13-42-8609 08:51-0400Systolic blood mthuyidg012 mm[Hg]Lindsay Rodriguez PA Work Phone: [phone] uFaber Qfkxnf60-27-5575 14:46-0400Body eoxgaa278.3 cmMarc Dolce DPM FACFAS Work Phone: [facility] HospitalOuzgfsowsj63-01-3107 14:46-0400Body mass index (BMI) [Ratio]39.89 kg/m2Marc Dolce DPM FACFAS Work Phone: [facility] HospitalMlxrssnmnh11-27-0049 14:46-0400Body mapjgq464.73 kgMarc Dolce DPM FACFAS Work Phone: [facility] HospitalMakdypzojq58-67-9734 14:46-0400Respiratory rate18 /minMarc Dolmanohar DPM FACFAS Work Phone: [facility] HospitalWonockjodx22-52-1779 15:00-0400Diastolic blood izyylerp33 mm[Hg]Julian Camarena MD Work Phone: [phone]lKexoea05-45-3257 15:00-0400Heart rate61 /min Julian Camarena MD Work Phone: [phone] 15:00-0400Respiratory rate23 /minJulian Camarena MD Work Phone: [phone] 15:00-9091YgG2% (BldA) [Mass fraction]97 %Julian Camarena MD Work Phone: [phone] 15:00-0400Systolic blood pnebkggd234 mm[Hg]Julian Camarena MD Work Phone: [phone] 13:00-0400Body cndcykkwojt14.1 [degF]Julian Camarena MD Work Phone: OwgdhOqdhan95-560297EawagNhxkqo06-09-2394 09:02-0400Heart rate66 /min Julian Camarena MD Work Phone: IzeqsWordij24-366515JgmuyKrkjba88-38-3633 00:06-0400Body mass index (BMI) [Ratio]41.42 kg/n9SgsddwJulian Camarena MD Work Phone: [phone] 00:06-0400Body .7 kg Julian Camarena MD Work Phone: HxbogEcswtb95-286368QsfwoIstkul06-96-2924 21:53-0400Body ccckae325.3 cm Julian Camarena MD Work Phone: [phone]bYdidet10-26-2250 11:28-0400Diastolic blood zhugffsf99 mm[Hg]Lindsay BURNHAM Work Phone: [facility]07-15-2025 11:28-0400Systolic blood pyfirzsf69 mm[Hg]Lindsay BURNHAM Work Phone: [facility]07-15-2025 11:24-0400Body .6 cmCourtporsha Rodriguez PA Work Phone: [facility]07-15-2025 11:24-0400Body mass index (BMI) [Ratio]40.52 kg/u3Ivwykael Rodriguez PA Work Phone: [facility]07-15-2025 11:24-0400Body htgsztieedb69.9 [degF]Lindsay Rodriguez PA Work Phone: [facility]07-15-2025 11:24-0400Body hyulec369.63 kgCocony Morrisne PA Work Phone: [facility]07-15-2025 11:24-0400Heart rate 72 /minCourtporsha Morrisne PA Work Phone: [facility]07-15-2025 11:24-0400 Respiratory rate16 /minCourtporsha Morrisne PA Work Phone: [facility]07-15-2025 11:24-9433HoD4% (BldA) [Mass fraction]99 %Lindsay Rodriguez PA Work Phone: [facility]06-26-2025 14:05-0400Body ryjcoy296.[address]06-26-2025 14:05-0400Body mass index (BMI) [Ratio]39.42 kg/h4Ghicl[address]06-26-2025 14:05-0400Body izbdriqsnoz32.5 [degF][address]06-26-2025 14:05-0400Body kgMet[address]06-26-2025 14:05-0400Diastolic blood wyrbyvlx80 mm[Hg][address]06-26-2025 14:05-0400Heart rate63 /minMet[address]06-26-2025 14:05-0400Respiratory rate18 /min [address]06-26-2025 14:05-1003GwT7% (BldA) [Mass fraction] 97 %[address]06-26-2025 14:05-0400Systolic blood pressure 127 mm[Hg][address]06-09-2025 13:23-0400Body mass index (BMI) [Ratio]37.6 kg/m2Bisi Herson BURNHAM Work Phone: [phone] [place], [place] [address]Gxbrycwapy01-81-6635 13:23-0400Body fnoehk759.28 kgBisi Herson BURNHAM Work Phone: [phone] [place], [place] [address]Vdvzuvbfei16-04-5526 13:23-0400Diastolic blood vfeazkzv13 mm[Hg]Bisi Herson BURNHAM Work Phone: [phone] [place], [place] [address]Utfdsvhyrg40-86-9968 13:23-0400Systolic blood efgundch497 mm[Hg]Bisi BURNHAM Work Phone: [phone] [place], [place] [address]Ddzvswspkn82-85-8485 15:39-0400Body mass index (BMI) [Ratio]38.33 kg/g7Uqjoy José Miguel DO Work Phone: [phone] [place], [place] [address]Ubbevraadi33-15-0418 15:39-0400Body ibgcjp655.77 kgCorey José Miguel DO Work Phone: [phone]-[facility] HospitalYweccfduiw27-72-2120 15:39-0400Diastolic blood mm[Hg]Yovani José Miguel DO Work Phone: [phone] [place], [place] [address]Wscshanfij29-59-0262 15:39-0400Systolic blood agvmpyjz739 mm[Hg]Yovani José Miguel DO Work Phone: [phone] [place], [place] [address]Cibwwfksrm12-72-7389 10:09-0400Body mass index (BMI) [Ratio]37.84 kg/u5Naxbn José Miguel DO Work Phone: [phone] [place], [place] [address]Ghiazwdjnu83-61-4060 10:09-0400Body lkzcre311.09 kgCorey José Miguel DO Work Phone: [phone] [place], [place] [address]Duyjnrcchn33-96-7318 10:09-0400Diastolic blood gptvyyds75 mm[Hg]Yovani José Miguel DO Work Phone: noms Dnineznaqz25-44-9457 10:Systolic blood mm[Hg]Yovani José Miguel DO Work Phone: [facility] Encounters Encounter DateEncounter TypeCare ProviderFacilityStart: 15-43-3774cujkjmisai Karan R NILLFacility:[facility] HospitalevueStart: 09-17-2025 End: 79-69-5580Dypsmcf encounter procedureMichael R NILL [phone]-[facility]yfL[facility] [place] Start: 09-04-2025 End: 74-62-0173Eienmxblank Miranda DPM Work Phone: noms CI PODIATRYStart: 09-04-2025 End: 27-13-5988Pthazmblank Miranda DPM Work Phone: noms CI PODIATRYStart: 09-04-2025 End: 79-67-3006Oaakqb outpatient visit 10 minutesLiborio Miranda DPM Work Phone: noms CI PODIATRYComment on above:Other specified disorders of synovium, left ankle and foot (Primary Dx); Pain due to onychomycosis of toenails of both feetStart: 09-04-2025 End: 50-69-7809vciauwgpzqAMGUAPGP A BROWNNot AvailableStart: 08-28-2025 ambulatoryMichael NILLFacility: LydiaueStart: 06-30-2025 End: 37-38-0790Bxkwsh follow up visit related to original Radha BURNHAM Work Phone: [facility]Asc[facility] - Medical OncologyComment on above:Encounter for postoperative care (Primary Dx)Start: 06-30-2025 End: 62-19-0688hugyesddjnFDPPYFPA PAYNEProMediLancaster Community Hospitaltart: 06-09-2025 End: 82-11-1868Aeyzjj outpatient visit 15 minutesMarc D Dolce DPM FACFAS Work Phone: noms NMA PODComment on above:Abscess, toe, left (Primary Dx); OnychocryptosisStart: 06-09-2025 End: 58-10-7593csnfauaxmhNMCD D DOLCENot AvailableStart: 06-09-2025 End: 51-96-3656Vsmiff flowsheetMarc D Dolce DPM FACFAS Work Phone: noms [facility] CentertownStart: 06-09-2025 End: 69-83-4407Iurpid flowsheetMarc D Dolce DPM FACFAS Work Phone: noms [facility] Hospitaltart: 06-03-2025 End: 38-35-3253Nnocgzqav encounterNatjose Schwab APRN-CUSTOMER OPERATIONS MANAGER Work Phone: noms [facility] DERMStart: 05-30-2025 End: 39-05-6470Cwsdic-up encounterTony Dupont MD Work Phone: [facility] Emergency MedicineComment on above: SPECIMEN FOR DERM PATHOLOGYStart: 05-29-2025 End: 36-77-6476Fynlkdhne encounterPatrica Engel MD Work Phone: [facility] Internal MedicineComment on above:Prescription ClarificationStart: 05-28-2025 End: 20-22-7499Qdxifizcly and management of inpatientMARIO ENGEL Facility:METROHealthStart: 59-13-1905Ojuvivbfz department patient visitUNKNOWN PROVIDERFacility:METROHealthStart: 05-28-2025 End: 54-37-5474Jcotyvsjdp and management of inpatientThomas Lake Camarena MD Work Phone: [phone] AComment on above:Rash and nonspecific skin eruption (Primary Dx); Adverse effect of drug, initial encounter; Abnormal electrocardiogram (ECG) (EKG); Abnormal electrocardiogram (ECG) (EKG); BRIAN (obstructive sleep apnea)Start: 05-28-2025 End: 20-28-7077Qnljtk outpatient new 30 minutesNatalie A Felter FIRE TECHNOLOGY INSTRUCTOR-CUSTOMER OPERATIONS MANAGER Work Phone: noms [facility] DERMComment on above:Rash and other nonspecific skin eruption (Primary Dx)Start: 05-28-2025 End: 01-99-3377fsgwzkjasqEAQXRDG A FELTERNot AvailableStart: 05-27-2025 End: 92-32-9609Jxvmrd outpatient visit 25 minutesLindsay BURNHAM Work Phone: Zakia Gomez [place] [facility] [[email or web address]] - Medical OncologyComment on above:Endometrial cancer ([facility]) (Primary Dx); Encounter for postoperative careStart: 05-27-2025 End: 74-95-7556wnhnyxmaomGsitzp L Pilmore PA-C Work Phone: [facility] Gynecology Oncology, A Department of [facility] Hospitaltart: 05-26-2025 End: 62-83-0665Xhcwsuaum encounterBarbara Victor CMACleveland Clinic Mercy Hospital Gynecology Oncology, A Department of [facility] HospitalStart: 10-55-5743rsiyhsituu [place] [facility]ulatory PPGStart: 05-19-2025 End: 22-28-6356Awdkfn flowsheetMarc D Dolce DPM FACFAS Work Phone: [facility] PODStart: 05-19-2025 End: 77-30-1324Sbfsin flowsheetMarc D Dolce DPM FACFAS Work Phone: [facility] PODStart: 05-19-2025 End: 57-37-5957okszqmxyhxPWBZ D DOLCENot AvailableStart: 05-19-2025 End: 02-28-9511Uuasjm outpatient visit 25 minutesMarc D Dolce DPM FACFAS Work Phone: noms NMA PODComment on above:Onychocryptosis (Primary Dx); Abscess, toe, left; Pain in left toe(s)Start: 05-14-2025 End: 24-64-8675Gxvgipvpb encounterClary [facility] Gy[facility] Oncology, A [facility]art: 05-12-2025 End: 53-52-4958Muydxqewwk and management of inpatientADAM Ady [facility] HospitalStart: 05-08-2025 End: 51-50-4910ogoygczhcrVTFO C [facility] HospitalStart: 05-08-2025 Encounter for other preprocedural examinationADAM [facility] HospitalStart: 05-08-2025 End: 54-25-4439Swvwfvf encounter procedureMetro Pat Provider [address] [place] [address] [facility] on above:Pre-op testing (Primary Dx); Endometrial cancer (CMS-HCC); Preop testingStart: 05-08-2025 End: 29-08-8485Hyozmcj encounter statusMetro [address] [place], [place] [address]tart: 05-07-2025 End: 55-22-6047Wovzbtsib encounterMichele Ricardo [facility]: 05-01-2025 End: 61-13-3984Lszhtg OnlyAdam Ady Snow MD Work Phone: [facility] Gynecology Oncology, A Department of [facility] on above:Endometrial cancer ([facility]-H[facility]) (Primary Dx); Preop testingStart: 05-01-2025 End: 14-39-9703Gqzaucc encounter statusAdam Ady Snow MD Work Phone: [facility]: 68-39-3401Qalqjhxlb for preprocedural laboratory examinationADAM [facility] HospitalStart: 04-30-2025 End: 92-97-0774Hbtndn outpatient new 60 minutesAdam Ady Snow MD Work Phone: [facility] Gynecology Oncology, A Department of [facility] on above:Endometrial cancer (CMS-HCC) (Primary Dx); Pre-procedure lab examStart: 04-30-2025 End: 03-90-3766cgigxnckezGPUH Ady [facility] HospitalStart: 04-30-2025 End: 98-60-7517Anhduqb encounter statusMalachi Snow MD Work Phone: [facility] SystemStart: 04-21-2025 End: 95-03-6526Exjcob meganJessica BURNHAM Work Phone: [facility] BCP OBStart: 04-21-2025 End: 79-94-3715Ayohai meganJessica BURNHAM Work Phone: [facility] BCP OBStart: 04-21-2025 End: 33-27-7093Rzbitn follow up visit related to original lukeBisi BURNHAM Work Phone: noms BCP OBComment on above:Postoperative examination Start: 04-21-2025 End: 86-77-3485avuemfswjwIRK HERSONNot AvailableStart: 04-11-2025 End: 10-82-6165Prcwnmffs Result EncounterCorey José Miguel DO Work Phone: noms External Department UnsolicitedStart: 04-11-2025 End: 56-36-8204Nxwuqataz Result EncounterCorey José Miguel DO Work Phone: noms External Department UnsolicitedStart: 04-01-2025 End: 30-75-9462Ixguwuuol Result EncounterCorey José Miguel DO Work Phone: noms External Department UnsolicitedStart: 04-01-2025 End: 38-34-7345Evzsddchh Result EncounterCorey José Miguel DO Work Phone: noms External Department UnsolicitedStart: 03-18-2025 End: 02-40-5172wcyrzqnpqgFFZCA FAZIONot AvailableStart: 03-18-2025 End: 58-50-1390Vlcgpn outpatient visit 15 minutesCorey José Miguel DO Work Phone: [facility] BCP OBComment on above:Pre-op examination; Postmenopausal bleeding; Thickened endometriumStart: 03-18-2025 End: 60-83-6898Tvgslykanlbvg examination doneCorey José Miguel DO Work Phone: [facility] HealthcareStart: 03-18-2025 End: 53-53-8033ehdjanmkplXBZT DOLCENot AvailableStart: 02-27-2025 End: 27-94-5761Wyhxdm flowsheetCorey José Miguel DO Work Phone: [facility] BCP OBStart: 02-27-2025 End: 43-01-5207Qtdjxk flowsheetCorey José Migule DO Work Phone: [facility] BCP OBStart: 02-27-2025 End: 88-22-1150Pzckjo outpatient visit 15 minutesCorey José Miguel DO Work Phone: [facility] BCP OBComment on above:Postmenopausal bleeding Start: 02-27-2025 End: 06-42-2405lpglenokzlIJGCU FAZIONot AvailableStart: 07-08-2024 End: 98-61-2310LmtvpqXmvdlmaz Jovita Echols DO Work Phone: noms NB OPHTComment on above:Age-related nuclear cataract of both eyesStart: 75-22-3990Bogrusylu for general adult medical examination without abnormal findingsDR RADHA HOYThe [facility] HospitalStart: 06-15-2022 End: 40-28-2019vxjeqkxzybRD RADHA HOYFacility:F2Rggew: 06-15-2022 End: 18-55-4820Fkqjexgns for general adult medical examination without abnormal findingsDR RADHA HOYFacility:F6Vrljh: 07-07-2021 End: 81-76-0753esfqzkgrpcBD RADHA HOYFacility:H1 Procedures DateProcedureProcedure DetailPerforming ClinicianStart: 34-00-4064Rgwaufjd kinase totalTayyab Taurus DO Work Phone: Start: 81-45-9788Ygmczrdga b core antibody hbcab total Moiz Birmingham MD Work Phone: Start: 88-42-1168Jqdd ia hepatitis b surface antigen Moiz Birmingham MD Work Phone: Start: 27-63-4639Vbqkf dip stick/tablet rgnt auto w/o microscopyHweyryoharriet Birmingham MD Work Phone: [phone]: 83-99-2577Gxdar of lactateJohn Arreola MD Work Phone: [phone]: 75-00-4299Qib routine ecg w/least 12 lds trcg only w/o i&rJoseashley Arreola MD Work Phone: [phone]: 88-34-7380V-reactive proteinJohn Arreola MD Work Phone: [phone]: 05-28-2025 End: 83-55-7180Ogmczbtabiigo rate rbc non-automatedAndrew Johnathan DO Work Phone: [phone]: 07-21-1279Wnrbkomzwp exam chest single view John Arreola MD Work Phone: [phone]: 19-56-0040Wpjro metabolic panel calcium total Heidi Kaur FIRE TECHNOLOGY INSTRUCTOR-CUSTOMER OPERATIONS MANAGER Work Phone: [phone]: 02-33-3650Diohwvl function panelAlisalvatorea Vincent FIRE TECHNOLOGY INSTRUCTOR-CUSTOMER OPERATIONS MANAGER Work Phone: [phone]: 14-90-0425Atzidg-up visitFollow-upCOURTNEY PAYNEStart: 01-74-7187Vfpcwupa screenMetro 9Start: 96-44-2565Vovyvjhe screenADATerry SNOWComment on above:Performed By: #### TSC #### [facility] ([id number]) [address] [place] [address] VIRStart: 72-30-1400Ejxpl typing serologic Florian Salvador MD Work Phone: start: 08-23-3349Bseuictqyaacr metabolic panelAdaterry Snow MD Work Phone: Start: 05-36-7748LKAKNVOB Deanna Salvador MD Work Phone: start: 65-46-4588KFF CBC WITH AUTO DIFFCorey José Miguel DO Work Phone: Start: 11-38-9921BTL BASIC METABOLIC PANELCorey José Miguel DO Work Phone: Start: 34-74-5944NWS 12-LEADCorey José Miguel DO Work Phone: Excision of lymph nodeMichael NILL Extraction of cataractMichael NILL Total abdominal hysterectomy with bilateral salpingo-oophorectomyMichael NILL Plan of Treatment DateCare ActivityDetailAuthorStart: 97-37-7992Ucsgm panelCholesterolMetroHealth Start: 30-26-7215Eshbl BMI ScreeningAdult BMI ScreeningUniversity [facility]als [facility] System Start: 41-28-7121Jbcfquj ScreeningTobacco ScreeningUniversity Hospitals [facility] SystemStart: 22-42-2661Uaeih BMI ScreeningAdult BMI ScreeningUniversity Hospitals [facility] SystemStart: 00-02-3903Kyigvsa ScreeningTobacco ScreeningUniversity Hospitals [facility] SystemStart: 28-13-5396Nagby BMI ScreeningAdult BMI ScreeningUniversity Hospitals [facility] SystemStart: 67-37-2725Zmyndzv ScreeningTobacco ScreeningUniversity Hospitals [facility] SystemStart: 53-20-4310Vxzlpqu ScreeningTobacco ScreeningUniversity Hospitals [facility] SystemStart: 12-04-2025 End: 53-60-9524Glpuvnf encounter uykxauwil05/22/2026 1:20 PM EST Procedure Visit [facility] [address] [facility] [address] [place] [address] Liborio Miranda, DPTerry [address] [facility] [address] [place] [address] [facility] CI PODIATRYStart: 09-04-2025 End: 16-91-9385Slihgbb encounter procedureNOMS CI PODIATRYComment on above: ArrivedStart: 10-19-1543Gxoiwlrut vaccinationInfluenza Vaccine (#1)[facility] Start: 55-18-7396Kfmsqqaxt vaccinationNOMS HealthcareStart: 06-30-2025 End: 22-81-3078Hdxagds encounter virezxlbn01/18/2025 9:00 AM EDT Office Visit [facility] [[email or web address]] - Medical Oncology [address] [place] [phone] Lindsay Rodriguez PA [address] [place] [address] [facility] [[email or web address]] - Medical OncologyStart: 06-09-2025 End: 72-05-1679Qsaqtdn encounter procedureNOMS NMA PODComment on above:Arrived Start: 05-27-2025 End: 84-65-3288Lsmhrth encounter pawoogncu75/15/2025 11:30 AM EDT Office Visit [facility] [[email or web address]] - Medical Oncology [address] [place] [phone] Lindsay Rodriguez PA [address] [facility], [place] [phone] (Work) [facility] Medical OncologyStart: 05-12-2025 End: 63-93-9059Fhaqnjvub to same day surgery couyqu9905/12/2025 1:00 PM EDT - 05/12/2025 3:15 PM EDT Surgery [facility] Division of [facility] - Surgery [address] [place] [address] Malachi Snow MD [address] [place] [address], [address] [facility] [place] [address] DAVINCI HYSTERECTOMY SALPINGO OOPHORECTOMYProWvumedicine Harrison Community Hospitalca [facility] - SurgeryComment on above:DAVINCI HYSTERECTOMY SALPINGO OOPHORECTOMYStart: 05-12-2025 End: 57-53-3350EDCFGAZ DISSECTION LYMPH NODE PELVIC SENTINELDAVINCI DISSECTION LYMPH NODE PELVIC SENTINEL ENDOMETRIAL ADENOCARCINOMA 05/12/2025 1:00 PM EDT [facility]-12[facility]2025 End: 60-30-0882XRGWIVE HYSTERECTOMY SALPINGO OOPHORECTOMYDAVINCI HYSTERECTOMY SALPINGO OOPHORECTOMY ENDOMETRIAL ADENOCARCINOMA 05/12/2025 1:[address] [facility] SystemStart: 23-84-9640Idyhmmfuka hospital visit by sggvsuppm21/30/2025 1:00 PM EDT Hospital Encounter [facility] Division [facility] -Surgery [address] [place] [address] Malachi Snow MD [address] [facility], [address] [place] [address] [facility] Division [facility] - SurgeryStart: 05-08-2025 End: 22-15-2677Tanmusk encounter jpuoyfczw77/26/2025 1:45 PM EDT [facility] [address] [address]RghJdipli Metro Pre-Admission Clinic On [facility] Start: 04-30-2025 End: 38-37-4259AO Abdomen and Pelvis W contrast IVCT abdomen and pelvis with contrast Imaging STAT Endometrial cancer (CMS-HCC) Expected: 04/30/2025,Expires: 04/30/2026ProCleveland Clinic [facility] Hospital SystemComment on above:Expected: 04/30/2025, Expires: 04/30/2026Start: 04-30-2025 End: 99-99-7907DT Chest limited W contrast IVCT chest with contrast Imaging STAT Endometrial cancer (CMS-HCC) Expected: 04/30/2025, Expires: 04/30/2026ProWvumedicine Harrison Community Hospitalca Work Phone: Comment on above:Expected: 04/30/2025, Expires: 04/30/2026Start: 04-21-2025 End: 20-09-2168Fawwfsy encounter procedureNOMS BCP OBComment on above:Arrived Start: 03-18-2025 End: 09-08-0560Yoliolp encounter rfmturayl20/06/2025 2:40 PM EDT Consult [facility] [address] [place] [address] Yovani Valdez, DO [address] [place] [address] [facility] OBStart: 03-18-2025 End: 80-15-9962Jhuiggehfjlk / ancillary services optmgmtagp38/06/2025 2:00 PM EDT Ancillary Procedure [facility] [address] [place] [address] [phone] BCP OBStart: 02-27-2025 End: 57-92-1375RD PelvisUS Pelvis w/ TV Imaging Routine Postmenopausal bleeding Expected: 02/27/2025, Expires: 08/29/2025[facility] Work Phone: comment on above:Expected: 02/27/2025, Expires: 08/29/2025Start: 02-27-2025 End: 33-58-8708Brugmfe encounter salnwgtne57/17/2025 10:00 AM EDT Office Visit [facility] OB [address] [place] [phone] Yovani Valdez, DO [address] [facility] [address] [place] [address] ArrivedST. JOSEPH[facility] OBComment on above:ArrivedStart: 07-22-2024 End: 57-47-3461Kjzobeo encounter ytykydxgc05/09/2024 7:45 AM EDT Procedure Visit [facility] EXT DEP Arturo Echols, DO [address] [place] [address] [facility] EXT DEPStart: 57-83-6283IAELD- 19 Vaccine ( season)COVID-19 Vaccine ( season)[facility] Start: 70-39-2343Ajpabsqfu vaccinationInfluenza Vaccine (#1)[facility] Start: 87-76-6004Rbqwzz wellness visitAnnual Wellness Visit ([id number])[facility] Start: 94-50-5237Xcxp Risk ScreeningFall Risk ScreeningProMedica Health System Start: 03-68-1282Hnehvwvmeigv Vaccine: 65+ Years (1 of 1 - PCV)Pneumococcal Vaccine: 65+ Years (1 of 1 - PCV)[facility] HealthcareStart: 49-97-1533Lzewmxdta for osteoporosisBone DensitometryMetroHealthStart: 28-62-6610Zxbixzixj B (HBV) Vaccine (optional start 60+ years)Hepatitis B (HBV) Vaccine (optional start 60+ years)MetroHealthStart: 54-69-9676KBJ vaccine (adult) (1 - Risk 60-74 years 1- dose series)RSV vaccine (adult) (1 - Risk 60-74 years 1-dose series)[facility] Start: 85-23-0103Kprzsuxpysth vaccinationPneumococcal Vaccine(s) (50+ yrs) (1 of 1 - PCV)MetroHealthStart: 62-61-5441Folzejnnjhgq Vaccine: 65+ Years (1 of 1 - PCV)Pneumococcal Vaccine: 65+ Years (1 of 1 - PCV)[facility] HealthcareStart: 70-94-4370Gsodqaiq (RZV) Vaccine (1 of 2)Shingles (RZV) Vaccine (1 of 2) MetroHealthStart: 14-51-9939Arotnexth for malignant neoplasm of colonMetroHealth Start: 89-47-6106Nqeawbgjq for malignant neoplasm of breastNOMS HealthcareStart: 84-32-4000QUjO,Tdap and Td Vaccines (1 - Tdap)DTaP,Tdap and Td Vaccines (1 - Tdap)[facility] SystemStart: 09-34-9701Cjxzettjf A (HAV) Vaccine (optional start 19+ years)Hepatitis A (HAV) Vaccine (optional start 19+ years)[facility] Start: 45-79-7954Yfrfu BMI Follow Up PlanAdult BMI Follow Up PlanUniversity Hospitals Elyria Medical Center SystemStart: 51-45-2502Llnrz BMI ScreeningAdult BMI ScreeningProCleveland Clinic [facility] SystemStart: 46-76-3176Chtv BoosterTdap BoosterMetroHealthStart: 13-80-5452Wdvxbenxzi ScreeningDepression ScreeningUniversity Hospitals Elyria [facility] SystemStart: 72-39-1729Xbbknjyog for malignant neoplasm of colonNOMS Healthcare End: 49-34-7881Auiyreze pathology procedureTHE [employer] Work Phone: comment on above:One time, now for 1 Occurrences starting 05/28/2025 until 05/28/2025, 1 completedBacteria identified in Urine by CultureTHE [employer] Work Phone: comment on above:When Specimen Available/Needed for 1 Occurrences starting 05/29/2025asic metabolic 2000 panel - Serum or PlasmaBASIC METABOLIC PANEL Lab Routine Daily until discontinued starting 05/29/2025, 1 completedMetroHealthComment on above:Daily until discontinued starting 05/29/2025, 1 completed End: 70-23-3775YOZ W Auto Differential panel - BloodCBC with auto diff Lab Routine Endometrial cancer ([facility]-HCC) Preop testing 1 Occurrences starting until 05/01/2026ProJamalon Work Phone: Comment on above:1 Occurrences starting 05/01/2025 until 6CBC W Auto Differential panel - BloodCOMPLETE BLOOD COUNT W/DIFF Lab Routine Daily until discontinued starting 05/29/2025, 1 completedTHE [employer] Work Phone: comment on above:Daily until discontinued starting 05/29/2025, 1 completed End: 15-50-8940Jejhrdxfdzkzr metabolic 2000 panel - Serum or PlasmaComprehensive metabolic panel Lab Routine Endometrial cancer ([facility]-HCC) Preop testing 1 Occurrences starting 05/01/2025 until 05/01/2026ProWvumedicine Harrison Community HospitalWind Energy Solutions SystemComment on above:1 Occurrences starting 05/01/2025 until 05/01/2026 End: 09-43-0856Rioqhhygyw includes GFR, serumCreatinine includes GFR, serum Lab Routine Endometrial cancer ([facility]-H[facility]) Pre-procedure lab exam 1 Occurrences starting 04/30/2025 until 04/30/2026ProWvumedicine Harrison Community HospitalWind Energy Solutions SystemComment on above:1 Occurrences starting 04/30/2025 until 04/30/2026 End: 34-40-9053SVA 12 leadECG 12 lead ECG Routine Endometrial cancer ([facility]) Preop testing 1 Occurrences starting 05/01/2025 until 05/01/2026ProCleveland Clinic Mentor Hospital SystemComment on above:1 Occurrences starting 05/01/2025 until 05/01/2026 End: 05-82-4578DKF-1/MS-2/MSH-6/PMS2 (IHC)MLH-1/MS-2/MSH-6/PMS2 (IHC) Pathology and Cytology STAT Endometrial cancer ([facility]-H[facility]) 1 Occurrences starting 05/27/2025 until 05/27/2026[facility] Work Phone: Comment on above:1 Occurrences starting 05/27/2025 until 05/27/2026 Immunizations Immunization DateImmunizationNotesCare AoqicerrNytbjvyr87-04-8351MQKU-PcD-7 (COVID-19) mRNA BNT-162b2 vaxMichael NILL [phone]-EfjsnUc [facility] [place] 53-93-0635OHLS-CoV-2 (COVID-19) mRNA BNT-162a8 vaxMichael NILL [phone]-ZmxxeUc [facility] [place] 49-17-3281ohegrvebe virus vaccine, unspecified formulationArturo Echols DO Work Phone: [facility] Payers DatePayer CategoryPayerPolicy [id number] Care Other (unspecified)[facility] [id number] 2023Medicare [id number] 2023Medicare FFEDICARE [id number] Health Insurance [id number] [id number] [id number]650 2..1.136457.3.579.2.02706-76-6816Uzhpiyr2534098 2..1.834596.3.579.2.97111-55-9355Igxjhvf587013730 2..1.658702.3.579.2.6[id number] 2..1.669706.3.579.2.555987-66-0366Pfrbtoi645151521 2..1.018976.3.579.2.732110-56-6198Dnladtc530741404 2..1.222309.3.579.2.528951-99-4717Ptuhzgl728268371 2..1.266568.3.579.2.129806-56-1370Mycbrgp903685465 2..1.981248.3.579.2.41581-39-2980Vjuypvt485839363 2.0.1.735547.3.579.2.26009-20-4151Ymmwhpc253965858 2.840.1.652021.3.579.2.46[id number] 2.0.1.825576.3.579.2.[id number] 2.0.1.784702.3.579.[id number] 2.0.1.757559.3.579.2.305331-62-0959Zdkzrcw46691527 2..1.796781.3.579.2.734633-40-5946Tyjxdpn13760754 2..1.917137.3.579.2.594272-78-8389Jnosmcu23687674 2.0.1.142381.3.579.2.084850-37-2239Arhyxvc4414258 2..1.249171.3.579.2.093129-99-2633Rgpambp4583960 2..1.189863.3.579.2.780868-67-7137Hdiehwv7175452 2..1.887793.3.579.2.054658-53-9195Nqmfnmy24340309 2..1.218369.3.579.2.830YozxyooV6596635855 Social History DateTypeDetailFacilityStart: 05-21-2024 End: 85-63-6047Ryocljl smoking status NHISEx-smokerNOMS Healthcare Work Phone: Start: 11-13-1973 End: 98-53-3722Urklbzr of tobacco useCurrent smokerNOMS HealthcareStart: 11-13-1971 End: 89-87-2765Vheafgy of tobacco useCigarette SmokerNOMS HealthcareStart: 05-21-2024 End: 24-21-4233Aormqyx use and exposureSmokeless tobacco non-userNOMS Healthcare Start: 05-21-2024 End: 66-81-9902Xyahqaouo beverage intakeLifetime non-drinker (finding)[facility] HealthcareStart: 07-20-2023 End: 51-27-2062Qotsvaz of Social functionNOMS HealthcareStart: 07-20-2023 End: 58-56-7152Zfwxzdb use panelNOMS HealthcareStart: 00-75-2339Env assigned at birthNot on fileNOMS HealthcareStart: 52-26-4228Ccqkkfx smoking status NHISNever smoked tobaccoProMedica Health SystemStart: 04-30-2025 End: 47-99-8741Wulmzpggx beverage intakeEx-drinker (finding)[facility] SystemStart: 11-80-6092XrdkyygbiLgudxplQmbIpgeyv Health SystemStart: 06-18-2015 End: 53-03-0204SoyFgasyw (finding)[facility] SystemTobacco smoking status NHISTobacco smoking consumption unknownMetroHealth Work Phone: has the electric, gas, oil, or water company threatened to shut off services in your home in past 12MoNoMetroHealth(I/We) worried whether (my/our) food would run out before (I/we) got money to buy more. Never trueMetroHealthSexual OrientationLima City Hospital [facility] [place] Goals DatePatient GoalDesired Activity/StatePersonal health goal Clinical Notes 02-27-2025 to 06-30-2025 Note Date & VxkzWyfvXhorcszj29-14-6902 History of Present illness Narrative* CHACHA Velasquez - 06/30/2025 9:00 AM EDT Subjective: Delmis M Drake is a 65 y.o. female who is s/p a FPTK-KRX-JDJF on 05/12/25. 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 Rash is resolved. She denies vaginal bleeding, vaginal discharge, change in bowel/bladder habits, SOB, cough, nausea, and vomiting. Patient was originally a consultation from for evaluation and management of endometrial adenocarcinoma, high-grade. Oncology History No history exists. Delmis Mtz Denies Early satiety Denies Abdominal distention Denies Leg swelling Denies Shortness of breath Denies Vaginal bleeding Denies Change in bowel habits Denies Change in bladder habits Denies Nausea and vomiting All other systems negative, unless specifically noted in HPI. Past Gynecologic History: OB History No obstetric history on file. No LMP recorded. Patient has had an implant. Hormonal Contraceptives No HRT use No History of abnormal pap No Past Surgical History: Procedure Laterality Date DAVINCI ROBOTIC ASSISTED HYSTERECTOMY SALPINGO OOPHORECTOMY Bilateral 05/12/2025 Performed by [facility] at [facility] DAVINC ROBOTIC ASSISTED DISSECTION LYMPH NODE PELVIC SENTINEL Bilateral 05/12/2025 Performed by [facility] at [facility] DILATION AND CURETTAGE OF UTERUS TONSILLECTOMY Past Medical History: Diagnosis Date Arthritis Cancer ([facility]) endometrial Cataract implants COPD (chronic obstructive pulmonary disease) ([facility]) GERD (gastroesophageal reflux disease) Hyperlipidemia Hypertension Obesity Visual impairment Family History Problem Relation Age of Onset Anesthesia problems Neg Hx Social History Socioeconomic History Marital status: Single Tobacco Use Smoking status: Former Current packs/day: 0.00 Average packs/day: 2.0 packs/day for 44.0 years (88.0 ttl pk-yrs) Types: Cigarettes Start date: 1971 Quit date: 2016 Years since quittin.6 Smokeless tobacco: Never Vaping Use Vaping status: Never Used Substance and Sexual Activity Alcohol use: Not Currently Drug use: Never Sexual activity: Defer Social Drivers of Health Food Insecurity: Unknown (05/28/2025) Received from [email or web address] Hunger Vital Sign Worried About Running Out of Food in the Last Year: Never true Transportation Needs: Unknown (05/28/2025) Received from [email or web address] PRAPARE - Transportation Lack of Transportation (Medical): No Interpersonal Safety: Unknown (05/28/2025) Received from [email or web address] Humiliation, Afraid, Rape, and Kick questionnaire Emotionally Abused: No Housing Instability: Unknown (05/28/2025) [facility] Vital Sign Unable to Pay for Housing in the Last Year: No Review of Symptoms: Pertinent items are noted in HPI. Objective: BP 120/64 Pulse 54 Temp 36.5 C (97.7 F) (Oral) Resp 16 Ht 181.6 cm (5' 11.5 ) Wt 128.3 kg(282 lb 12.8 oz) SpO2 100% BMI 38.90 kg/m ECO- Asymptomatic General appearance: alert, appears stated age and cooperative Head: Normocephalic, without obvious abnormality, atraumatic Lungs: clear to auscultation bilaterally Heart: regular rate and rhythm, S1, S2 normal, no murmur, click, rub or gallop Abdomen: soft, nontender, incisions c/d/I without evidence of infection. Pelvic exam: VULVA: normal appearing vulva with no masses, tenderness or lesions, VAGINA: normal appearing vagina with normal color and discharge, no lesions, CERVIX: surgically absent, UTERUS: surgically absent, vaginal cuff well healed Extremities: extremities normal, atraumatic, no cyanosis or edema Pulses: 2+ and symmetric Skin: extensive macular rash throughout neck, trunk, arms and legs Lymph nodes: Cervical, supraclavicular, and axillary nodes normal. Neurologic: Grossly normal Labs: Lab Results Component Value Date WBC 5.4 06/24/2020 HGB 13.1 06/24/2020 HCT 38.9 06/24/2020 MCV 88 06/24/2020 PLT 192 06/24/2020 Lab Results Component Value Date GLU 105 (H) 05/08/2025 CALCIUM 9.0 05/08/2025 SODIUM 141 05/08/2025 K 3.8 05/08/2025 CO2 30 05/08/2025 BUN 16 05/08/2025 CREATININE 0.92 05/08/2025 No results found for: CA125 Assessment: Patient is diagnosed with Patient Active Problem List Diagnosis Endometrial cancer ([facility]) Plan: Post op care - she is progressing well. Vaginal cuff well healed. Ok to resume normal activity. Avoid intercourse for an additional 2-3 weeks. Stage IB Grade 1: Discussed surgical pathology results in detail today. Discussed her intermediate risk of recurrence and tumor board recommendations for vaginal cuff brachytherapy. She has elected not to pursue adjuvant radiation therapy. We discussed surveillance with visits every 6 months for the first year followed by yearly thereafter. Discussed possible signs/symptoms of recurrence in whichshe should call our office. She would like to think about this and states she will call if she decides she wants to follow with our team. *An evaluation and management service unrelated to the patient's post-op care was performed today (within the post operative period). *The patient has a documented plan of care to address pain. All questions were answered to the patient's satisfaction. She is agreeable to this plan of care. Lindsay Rodriguez PA-C, RD, IF CHACHA Velasquez 06/30/25 0907 documented [facility] History of Present illness Narrative* Cuco Marin DPM FACFAS - 06/09/2025 2:20 PM EDT Images from the original note were not included. Patient: Delmis Pelletier Drake : 1960 PCP: Radha Iverson MD SUBJECTIVE This is a 65 y.o. female that presents today for follow up a nail avulsion /incision and drainage of abscess left . Patient is doing well they deny fever chills nausea vomiting. They deny any pain they have been compliant with her postoperative care they have been soaking the nail as directed and applying topical antibiotics. Patient was recently hospitalized for an allergic reaction they were concerned she may have Rustam Donato's syndrome biopsy revealed she had a not have Rustam Donato syndrome. But a severe drug reaction unable to determine what the reaction was from possibly clindamycin or Ancef that was given toher during a recent elective surgery. However she was recovered quite well she was no erythema no rash noted much improved Allergies: Allergies Allergen Reactions Penicillins Past Medical History: Active Ambulatory Problems Diagnosis Date Noted Age-related nuclear cataract of both eyes 05/21/2024 Epiretinal membrane (ERM) of left eye 05/21/2024 Resolved Ambulatory Problems Diagnosis Date Noted No Resolved Ambulatory Problems Past Medical History: Diagnosis Date Arthritis HTN (hypertension) Hypercholesteremia Medications: Current Outpatient Medications: albuterol (2.5 MG/3ML) 0.083% nebulizer solution, Take by nebulization every 6 (six) hours if needed for wheezing, Disp: , Rfl: amLODIPine (Norvasc) 5 MG tablet, , Disp: , Rfl: carvedilol (Coreg) 25 MG tablet, , Disp: , Rfl: CVS D3 125 MCG (5000 UT) capsule, , Disp: , Rfl: esomeprazole (NexIUM) [address] capsule, Take 20 mg by mouth in the morning. Take before meals. Do not open capsule., Disp: , Rfl: furosemide (Lasix) 40 MG tablet, , Disp: , Rfl: hyoscyamine (Levsin) 0.125 MG SL tablet, , Disp: , Rfl: ibuprofen 600 MG tablet, every 8 (eight) hours, Disp: , Rfl: losartan (Cozaar) 100 MG tablet, 1 (one) time each day at the same time, Disp: , Rfl: potassium chloride CR (Klor-Con) 10 MEQ ER tablet, Take 10 mEq by mouth in the morning and 10 mEq before bedtime., Disp: , Rfl: simvastatin (Zocor) 20 MG tablet, Take 20 mg by mouth Daily, Disp: , Rfl: ROS: Constitutional: Denies fever, chills, nausea, vomiting GI: Denies abdominal pain, cramping, loose stool, gastric ulcers Musculoskeletal: Denies low back pain, knee pain, systemic arthritis Neurologic: Denies burning, tingling, transient paralysis OBJECTIVE Physical examination: DERM: Positive hair growth to b/l feet with good skin turgor noted. Nail avulsion site is healing well no signs of infection no drainage no malodor. Mild fibrotic tissue noted within the nail fold. No ascending cellulitis or lymphangitis noted. No signs of drug reaction noted VASC: Palpable pedal pulsed b/l with warm to cool tibia to toes b/l NEURO: Gross sensation intact digits 1-10 and b/l feeT MUSCULOSKELETAL: Muscle strength is +5 over 5 all intrinsic and extrinsic muscles tested ASSESSMENT 1. Onychocryptosis 2. Abscess, toe, left PLAN Patient may discontinue soaking the nail. They may discontinue topical antibiotics follow up p.r.n.patient was doing very well covering quite well from her drug reaction. Cuco Marin DPM FACFAS documented in this encounterLee's Summit [id number] Telephone encounter Note* Telephone Encounter - Tony Dupont MD - 05/30/2025 2:12 PM EDT Discussed with pt inpatient. [id number] Miscellaneous Notes* Telephone Encounter - Tony Dupont MD - 05/30/2025 2:12 PM EDT Discussed with pt inpatient. documented in this [id number] Telephone encounter Note* Telephone Encounter - Radhika Baer RN - 05/30/2025 11:07 AM EDT Images from the original note were not included. Situation: Patient returning missed call/Ref 99 Background: N/A Assessment: N/A Recommendation: Read message to pt; verbalized understanding. Pt states her discharge instructions say she is supposed to take each dose of prednisone for 5 daysinstead of the instructions on the bottle. Advised pt to follow instructions on bottle and RN will send this to provider to further clarify. This is from D/C paper from ED visit: Clipped from Script: [id number] Miscellaneous Notes* Telephone Encounter - Radhika Baer RN - 05/30/2025 11:07 AM EDT Images from the original note were not included. Situation: Patient returning missed call/Ref 99 Background: N/A Assessment: N/A Recommendation: Read message to pt; verbalized understanding. Pt states her discharge instructions say she is supposed to take each dose of prednisone for 5 daysinstead of the instructions on the bottle. Advised pt to follow instructions on bottle and RN will send this to provider to further clarify. This is from D/C paper from ED visit: Clipped from Script: * Telephone Encounter - Maryana Mahan RN - 05/30/2025 10:57 AM EDT Called pt, no answer, lm on to return call to [phone]. See providers note. * Telephone Encounter - Maryana Mahan RN - 05/30/2025 10:57 AM EDT Images from the original note were not included. Apryl Coe MD to Me (Selected Message) 05/30/25 10:56 AM You can let her know that I reordered the prescription with the right amount of tablets - please tell her that if she already filled the first prescription with the 10 tablets to NOT take any extra tablets and to only take the amount needed to complete the written protoc * Telephone Encounter - Nirali Ya RN - 05/30/2025 10:07 AM EDT Situation: pt returning call, following up on message sent yesterday regarding clarification on thefollowing prescription: Medication Name: predniSONE (DELTASONE) 20 MG tablet Dosage: 20 mg Dosage form: tablet Directions: Take 3 Tablets by mouth daily for 4 days, THEN 2 Tablets daily for 5 days, THEN 1 Tablet daily for 5 days, THEN 0.5 Tablets daily for 5 days. Quantity: 10 Reason for call: patient needs clarification on the directions, only 10 tablets were prescribed. Please resend a new prescription with the appropriate amount or Please contact the patient to discuss this issue as well as a plan of action. Background: n/a Assessment: n/a Recommendation: please follow up with pt. Advised pt to follow up with pcp regarding prescription * Telephone Encounter - Velma Mesa - 05/29/2025 6:24 PM EDT patient is calling to request clarification on the following prescription: Medication Name: predniSONE (DELTASONE) 20 MG tablet Dosage: 20 mg Dosage form: tablet Directions: Take 3 Tablets by mouth daily for 4 days, THEN 2 Tablets daily for 5 days, THEN 1 Tablet daily for 5 days, THEN 0.5 Tablets daily for 5 days. Quantity: 10 Reason for call: patient needs clarification on the directions, only 10 tablets were prescribed. Please resend a new prescription with the appropriate amount or Please contact the patient to discuss this issue as well as a plan of action. documented in this [id number] Telephone encounter Note* Telephone Encounter - Maryana Mahan RN - 05/30/2025 10:57 AM EDT Called pt, no answer, lm on to return call to [phone]. See providers note. [email or web address] Work Phone: [phone] 593-617907-18-2025 Telephone encounter Note* Telephone Encounter - Maryana Mahan RN - 05/30/2025 10:57 AM EDT Images from the original note were not included. Apryl Coe MD to Me (Selected Message) 05/30/25 10:56 AM You can let her know that I reordered the prescription with the right amount of tablets - please tell her that if she already filled the first prescription with the 10 tablets to NOT take any extra tablets and to only take the amount needed to complete the written protoc [id number] Telephone encounter Note* Telephone Encounter - Nirali Ya RN - 05/30/2025 10:07 AM EDT Situation: pt returning call, following up on message sent yesterday regarding clarification on thefollowing prescription: Medication Name: predniSONE (DELTASONE) 20 MG tablet Dosage: 20 mg Dosage form: tablet Directions: Take 3 Tablets by mouth daily for 4 days, THEN 2 Tablets daily for 5 days, THEN 1 Tablet daily for 5 days, THEN 0.5 Tablets daily for 5 days. Quantity: 10 Reason for call: patient needs clarification on the directions, only 10 tablets were prescribed. Please resend a new prescription with the appropriate amount or Please contact the patient to discuss this issue as well as a plan of action. Background: n/a Assessment: n/a Recommendation: please follow up with pt. Advised pt to follow up with pcp regarding prescription [id number] Telephone encounter Note* Telephone Encounter - Velma Mesa - 05/29/2025 6:24 PM EDT patient is calling to request clarification on the following prescription: Medication Name: predniSONE (DELTASONE) 20 MG tablet Dosage: 20 mg Dosage form: tablet Directions: Take 3 Tablets by mouth daily for 4 days, THEN 2 Tablets daily for 5 days, THEN 1 Tablet daily for 5 days, THEN 0.5 Tablets daily for 5 days. Quantity: 10 Reason for call: patient needs clarification on the directions, only 10 tablets were prescribed. Please resend a new prescription with the appropriate amount or Please contact the patient to discuss this issue as well as a plan of action. [id number] NoteDISCHARGE SUMMARY [address] [address] Delmis Mtz Date of : 1960 65 year old female Attending Mario Engel MD Date of Admission 05/28/2025 Date of Discharge 05/29/2025 Hospital Problems as of 05/29/2025 * (Principal) Rash and nonspecific skin eruption BRIAN (obstructive sleep apnea) Discharge Procedure Orders Sleep Lab Studies Service Requests Standing Status: Future Referral Priority: Routine Referral Type: Service Level Authorization Referral Location: [facility] Number of Visits Requested: 2 Expiration Date: 05/29/26 No future appointments. Pt elected and instructed to follow up with her local certified professional midwife Condition at Discharge unchanged Symptoms to look out for after discharge: Worsening rash despite treatment Activity no restrictions Diet no restrictions Disposition home Functional Status ambulatory Tests recommended to be performed by PCP after discharge Final biopsy path This patient is not being discharged to a facility, and does not require completion of the facility form. Reason for Hospitalization: Rash c/f SJS Hospital Course: Delmis Mtz is a 65 year old female presenting with a generalized pruritic rash as a referral from a [facility], with a pmhx of COPD, GERD, HTN, HLD, and endometrial adenocarcinoma, admitted due to concern for SJS/TEN. Reported that the rash started on 05/24 5 days after starting clindamycin abx ppx (05/19, stopped 05/24) s/p toe procedure, IV ancef s/p hysterectomy for endometrial adenocarcinoma (05/12/2025), and keflex 500 BID for UTI by PCP beginning 05/27. In the ED, pt stated the rash was non-tender and started in the lower back as small dots w/red raised rash that was progressively spreading centripetally to the torso and rest of body. Pt tried cortisone cream, benadryl, 2 steroid injections (05/26, 05/27: unclear dose, then started on pred taper 50 mg 05/27 and 05/28) w/no relief. Denied n/v, blisters, erosions, and ocular and oral symptoms. In the ED 05/28, she was HDS with VS (105/60, HR: 73, 98.7 F, resp 18, SpO2 98%). Her labs were notable for a WBC at 22.2, CRP 4.5, ESR 22, and lactate 2.1. EKG was done which was NSR. A CXR was done which had no acute radiographic abnormality identified. LFT significant for ALT 79 (repeat down to 61) and Alk Phos 105 (repeat down to 99). Hepatitis B and C labs were negative. UA was notable for positive leukocyte esterase and WBC 31-100 but patient denied continued symptoms of dysuria and said her prior symptoms had resolved, so we elected not to prescribe further antibiotics for this during admission. Dermatology was consulted and performed a skin biopsy which was notable for a likely pustular drug eruption vs pustular psoriasis, no cytotoxicity (no evidence of SJS/EM). They recommended a 60mg prednisone taper (5 days 60 mg, to 40 mg x5days, 20 mg x5days, and ending on 10 mg daily and topical triamcinolone 0.1% BID for itching. To Do: [] PCP follow up appt and repeat LFTs in 2 weeks [] Dermatology follow up appt locally [] Recommended to schedule sleep study outpatient Significant Findings: PHYSICAL EXAM ON DAY OF DISCHARGE: Vitals: BP 115/50 (BP Location: right arm) Pulse 73 Temp 98.1 ???F (36.7 ???C) (Oral) Resp 17 Ht 5' 11 (1.803 m) Wt 296 lb 15.4 oz (134.7 kg) SpO2 99% BMI 41.42 kg/m??? Physical exam: General: NAD. HEENT: EOMI. Conjunctiva clear. No scleral icterus. Heart: RRR. No murmurs or rub. Lungs: CTAB. Abdomen: Soft. Non-tender. Non-distended. Extremities: No LE edema. Neuro: No focal deficits. A AND Ox3 Skin: Warm AND dry. Erythematous mildly edematous morbiliform eruption coalescing into a large confluent erythematous plaque on the trunk - some small pustules present on forearms. Faint erythematous macules present on palms and lower legs - No oral erosions identified Recent Labs 05/28/25 1346 05/28/25 1621 05/29/25 0013 NA 134* 138 140 K 8.5* 4.4 4.2 CL 104 105 106 CO2 23 23 23 BUN 24 23 23 CR 1.09 0.95 0.94 GLU 148* 151* 130* Recent Labs 05/28/25 1300 05/28/25 1621 05/29/25 0013 WBC 22.2* 19.4* 19.4* HGB 12.8 12.4 12.2 HCT 35.9* 37.4 36.4 PLT 191 200 196 Imaging : Chest x-ray was last done on 05/28/2025 Medication List: Current Discharge Medication List START taking these medications Details triamcinolone 0.1 % cream Apply topically 2 times daily. Apply thin layer to affected area. Qty: 454 g, Refills: 0 predniSONE (DELTASONE) 20 MG tablet Take 3 Tablets by mouth daily for 4 days, THEN 2 Tablets daily for 5 days, THEN 1 Tablet daily for 5 days, THEN 0.5 Tablets daily for 5 days. Qty: 10 Tablet, Refills: 0 losartan (COZAAR) 50 MG tablet Take 2 Tablets by mouth daily. CARvedilol (COREG) 12.5 MG tablet Take 1 Tablet by mouth 2 times daily. atorvastatin (LIPITOR) 10 MG tablet Ta (more content not included)...[facility]07-17-[facility]25 Hospital course Narrative* Apryl Coe MD - 05/29/2025 1:42 PM EDT Images from the original note were not included. DISCHARGE SUMMARY [address] [address] Delmis Mtz Date of : 1960 65 year old female Attending Mario Engel MD Date of Admission 05/28/2025 Date of Discharge 05/29/2025 Hospital Problems as of 05/29/2025 * (Principal) Rash and nonspecific skin eruption BRIAN (obstructive sleep apnea) Discharge Procedure Orders Sleep Lab Studies Service Requests Standing Status: Future Referral Priority: Routine Referral Type: Service Level Authorization Referral Location: [facility] Number of Visits Requested: 2 Expiration Date: 05/29/26 No future appointments. Pt elected and instructed to follow up with her local certified professional midwife Condition at Discharge unchanged Symptoms to look out for after discharge: Worsening rash despite treatment Activity no restrictions Diet no restrictions Disposition home Functional Status ambulatory Tests recommended to be performed by PCP after discharge Final biopsy path This patient is not being discharged to a facility, and does not require completion of the facilityform. Reason for Hospitalization: Rash c/f SJS Hospital Course: Delmis Mtz is a 65 year old female presenting with a generalized pruritic rash as a referral from a [facility], with a pmhx of COPD, GERD, HTN, HLD, and endometrial adenocarcinoma, admitted due to concern for SJS/TEN. Reported that the rash started on 05/24 5 days after starting clindamycin abx ppx (05/19, stopped 05/24) s/p toe procedure, IV ancef s/p hysterectomy for endometrial adenocarcinoma (05/12/2025), and keflex 500 BID for UTI by PCP beginning 05/27. In the ED, pt stated the rash was non-tender and started inthe lower back as small dots w/red raised rash that was progressively spreading centripetally to the torso and rest of body. Pt tried cortisone cream, benadryl, 2 steroid injections (05/26, 05/27: unclear dose, then started on pred taper 50 mg 05/27 and 05/28) w/no relief. Denied n/v, blisters, erosions, and ocular and oral symptoms. In the ED 05/28, she was HDS with VS (105/60, HR: 73, 98.7 F, resp 18, SpO2 98%). Her labs were notable for a WBC at 22.2, CRP 4.5, ESR 22, and lactate 2.1. EKG was done which was NSR. A CXR was done which had no acute radiographic abnormality identified. LFT significant for ALT 79 (repeat down to 61) and Alk Phos 105 (repeat down to 99). Hepatitis B and C labs were negative. UA was notable for positive leukocyte esterase and WBC 31-100 but patient denied continued symptoms of dysuria and said her prior symptoms had resolved, so we elected not to prescribe further antibiotics for this during admission. Dermatology was consulted and performed a skin biopsy which was notable for a likely pustular drug eruption vs pustular psoriasis, no cytotoxicity (no evidence of SJS/EM). They recommended a 60mg prednisone taper (5 days 60 mg, to 40 mg x5days, 20 mg x5days, and ending on 10 mg daily and topical triamcinolone 0.1% BID for itching. To Do: [] PCP follow up appt and repeat LFTs in 2 weeks [] Dermatology follow up appt locally [] Recommended to schedule sleep study outpatient Significant Findings: PHYSICAL EXAM ON DAY OF DISCHARGE: Vitals: BP 115/50 (BP Location: right arm) Pulse 73 Temp 98.1 F (36.7 C) (Oral) Resp 17 Ht 5' 11 (1.803 m) Wt 296 lb 15.4 oz (134.7 kg) SpO2 99% BMI 41.42 kg/m Physical exam: General: NAD. HEENT: EOMI. Conjunctiva clear. No scleral icterus. Heart: RRR. No murmurs or rub. Lungs: CTAB. Abdomen: Soft. Non-tender. Non-distended. Extremities: No LE edema. Neuro: No focal deficits. A&Ox3 Skin: Warm & dry. Erythematous mildly edematous morbiliform eruption coalescing into a large confluent erythematous plaque on the trunk - some small pustules present on forearms. Faint erythematous macules present on palms and lower legs - No oral erosions identified Recent Labs 05/28/25 1346 05/28/25 1621 05/29/25 0013 NA 134* 138 140 K 8.5* 4.4 4.2 CL 104 105 106 CO2 23 23 23 BUN 24 23 23 CR 1.09 0.95 0.94 GLU 148* 151* 130* Recent Labs 05/28/25 1300 05/28/25 1621 05/29/25 0013 WBC 22.2* 19.4* 19.4* HGB 12.8 12.4 12.2 HCT 35.9* 37.4 36.4 PLT 191 200 196 Imaging : Chest x-ray was last done on 05/28/2025 Medication List: Current Discharge Medication List START taking these medications Details triamcinolone 0.1 % cream Apply topically 2 times daily. Apply thin layer to affected area. Qty: 454 g, Refills: 0 predniSONE (DELTASONE) 20 MG tablet Take 3 Tablets by mouth daily for 4 days, THEN 2 Tablets daily for 5 days, THEN 1 Tablet daily for 5 days, THEN 0.5 Tablets daily for 5 days. Qty: 10 Tablet, Refills: 0 losartan (COZAAR) 50 MG tablet Take 2 Tablets by mouth daily. CARvedilol (COREG) 12.5 MG tablet Take 1 Tablet by mouth 2 times daily. atorvastatin (LIPITOR) 10 MG tablet Take 1 Tablet by mouth at bedtime. I provided the patient and/or family/surrogate with the following information: Explanation of the primary diagnosis, and secondary diagnoses where applicable, including test results, Discussion of any new medications and treatments, including expected benefits and potential major side effects, Explanation of previous treatments or medications that are discontinued, Discussionof post- hospital day-to-day care needs and Follow-up plans, and warning signs that should prompt more urgent follow-up Apryl Coe MD Internal Medicine, PGY-1 Cosigned by Mario Engel MD at 05/29/2025 3:19 PM EDT documented in this [id number] Hospital Discharge instructions* Discharge Instructions* Apryl Coe MD - 05/29/2025 1:37 PM EDT Please continue taking prednisone according to the following taper: 60mg prednisone daily x5days starting 05/30/2025 with last dose on 06/02/2025 40mg prednisone daily x5days starting 06/03/2025 with last dose on 06/07/2025 20mg prednisone daily x5days starting 06/08/2025 with last dose on 06/12/2025 10mg prednisone daily x5days starting 06/13/2025 with last dose on 06/17/2025 Please schedule an appointment with your primary care provider to repeat bloodwork (liver function test) in 2 weeks Please schedule a sleep study Please follow up with dermatology either by video with Linda or with a certified professional midwife in your local area * Attachments The following attachments cannot be sent through Care Everywhere. * Adverse Drug Reactions Discharge Instructions, Adult (Portuguese) documented in this [id number] NoteDermatology Progress Note Subjective: pt notes she was somewhat itchy overnight, but rash has not worsened. Thinks maybe hands are looking slightly better. Has not had more pain in throat. Objective: Vital sign ranges over the past 24 hours (retrieved 05/29/2025 at 1:25 PM): Tmax (24 hours): 98.7 ???F (37.1 ???C) Pulse Av.3 Min: 55 Max: 102 Systolic (24hrs), Av , Min:90 , Max:154 Diastolic (24hrs), Av, Min:49, Max:109 MAP (mmHg) Av.8 mmHg Min: 62 mmHg Max: 117 mmHg Resp Av.5 Min: 13 Max: 37 SpO2 Av.1 % Min: 95 % Max: 100 % Physical exam: - Similar overall to exam yesterday - not worsened Face, neck, chest, abdomen, arms, legs, mouth examined, pertinent skin findings include: - Involving the trunk, neck, face, and extremities is an erythematous mildly edematous morbiliform eruption coalescing into a large confluent erythematous plaque on the trunk - some small pustules present on forearms. Faint erythematous macules present on palms - No oral erosions identified Labs/Imaging/Pathology: Reviewed in Epic, significant for: WBC 19.4 Preliminary biopsy read c/w pustular drug eruption, pending final read Assessment and Plan: 1. Pustular drug eruption: - suspect secondary to clindamycin - recommend prednisone taper: 60mg x5d, followed by 40mg x5d, 20mg x5d, 10mg x5d (20 day course) - recommend triamcinolone 0.1% ointment BID to itchy areas - do not apply to face, armpits or groin - will discuss followup with pt (pt reports lives 1-2 hours away) Daily care of bx site: Leave original dressing in place for about 24 hours. Starting tomorrow, start the following: Once daily, clean biopsy site with mild soap and water. If there is drainage from the biopsy site, it may need to be cleaned more frequently than once a day. After washing, pat the area dry. DO apply vaseline or aquaphor to the wound. Apply a new band-aid over the area. Time spent with the patient includes: 30 minutes Thank you for allowing us to participate in the care of this patient. The patient was staffed and discussed with Dr. Greg Dupont [facility] of Present illness Narrative* Tony Dupont MD - 05/29/2025 1:24 PM EDT Dermatology Progress Note Subjective: pt notes she was somewhat itchy overnight, but rash has not worsened. Thinks maybe hands are looking slightly better. Has not had more pain in throat. Objective: Vital sign ranges over the past 24 hours (retrieved 05/29/2025 at 1:25 PM): Tmax (24 hours): 98.7 F (37.1 C) Pulse Av.3 Min: 55 Max: 102 Systolic (24hrs), Av , Min:90 , Max:154 Diastolic (24hrs), Av, Min:49, Max:109 MAP (mmHg) Av.8 mmHg Min: 62 mmHg Max: 117 mmHg Resp Av.5 Min: 13 Max: 37 SpO2 Av.1 % Min: 95 % Max: 100 % Physical exam: - Similar overall to exam yesterday - not worsened Face, neck, chest, abdomen, arms, legs, mouth examined, pertinent skin findings include: - Involving the trunk, neck, face, and extremities is an erythematous mildly edematous morbiliform eruption coalescing into a large confluent erythematous plaque on the trunk - some small pustules present on forearms. Faint erythematous macules present on palms - No oral erosions identified Labs/Imaging/Pathology: Reviewed in Epic, significant for: WBC 19.4 Preliminary biopsy read c/w pustular drug eruption, pending final read Assessment and Plan: 1. Pustular drug eruption: - suspect secondary to clindamycin - recommend prednisone taper: 60mg x5d, followed by 40mg x5d, 20mg x5d, 10mg x5d (20 day course) - recommend triamcinolone 0.1% ointment BID to itchy areas - do not apply to face, armpits or groin - will discuss followup with pt (pt reports lives 1-2 hours away) Daily care of bx site: Leave original dressing in place for about 24 hours. Starting tomorrow, start the following: Once daily, clean biopsy site with mild soap and water. If there is drainage from the biopsy site, it may need to be cleaned more frequently than once a day. After washing, pat the area dry. DO apply vaseline or aquaphor to the wound. Apply a new band-aid over the area. Time spent with the patient includes: 30 minutes Thank you for allowing us to participate in the care of this patient. The patient was staffed and discussed with Dr. Greg Dupont MD Resident in Dermatology * Moiz Birmingham MD - 05/28/2025 8:24 PM EDT Images from the original note were not included. Internal Medicine [facility] Plan Note Patient: Delmis Mtz Admission Date: 05/28/2025 Assessment & Plan: Delmis Mtz, 65 year old female presenting with diffuse rash. PMHx of HTN, HLD, GERD . A/P #Diffuse skin rash -Ddx: medication induced SJS/TEN vs. 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 -?paraneoplastic dermatoses) OR autoimmune etiology -List of recently prescribed abx: Clindamycin for toenail infection by podiatry (05/19/25-stopped 05/24/25) Ancef (intra-op) on 05/12 Cephalexin 500mg BID for UTI by PCP(05/27/25-) -No mucosal involvement on exam including genital region, only dry lips -s/p steroid injections 05/26-05/27, then on prednisone 10mg daily without improvement -Derm consulted at ED, recs appreciated Plan: -If rash opens/worsening, to get burn unit involved again for possible transfer for wound management -Continue supportive care -Monitor for wounds, possible secondary infections/organ dysfunction -To consider systemic steroids vs. IVIG vs. Cyclosporine pending clinical progression -f/u derm pathology and recs -f/u uric acid, CpK #Leukocytosis -Likely in the setting of recent steroid use Plan: -infection workup as below #Dysuria -reports dysuria with discharge, was prescribed cephalexin by PCP but still with symptoms Plan: -f/u UA #Elevated transanimates -ALT 79, AST 72 (hemolyzed) -Ddx: infection vs. SJS associated liver injury Plan: -Repeat LFT -f/u hepatitis panel #HTN #HLD -Continue home losartan 100mg, coreg 25mg BID, Lipitor 10mg (in [place] of home simvastatin 20mg) -Hold home lasix 40mg due to concern for dehydration #GERD -Continue home omeprazole 40mg Remainder of plan per Dr. Condon's note. Moiz Birmingham MD Internal Medicine Resident PGY-2 Available via Gr[employer] Chat Subjective: HPI: Per patient, Noticed rash started 05/24/25 from lower abdomen, but liekly also started from back that she did notinitially notice, then spread all over her body including face and lower extremities. Rash not painful, intermittently itchy Went to Derm outpatient appt for rash, was instructed to come to ED for evaluation of skin rash concerning for SJS Per chart review, [employer] at at [facility] in [place] 05/28/25: -pt started oral clindamycin on 05/19/25; pt reports she was given this due to an operation on her toe and then stopped taking 05/25/25; pt also had a hysterectomy on 05/12/25 -s/p 2 steroid shots (one on Monday one on Monday), prednisone 10 mg (planned , cipro (for bladderinfection) hydroxyzine; OTC cortisone cream and spray, OTC Benadryl [facility] 05/27/25: -s/p a [id number] on 05/12/25. 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 Interventions: - Benadryl 25mg PO [x] Care Everywhere Records Reviewed [] Medication fill history reviewed-unavailable; confrimed with patient that she takes all her homemedications [x] Code Status verified - Full Code Objective: Most Recent Vitals: Temp 98.1 HR 60 BP 124/109 RR 18 SpO2 99% on RA Weight 297 lbs Pertinent Exam Findings: Diffuse rash (Refer to media for pictures) with erythema on anterior abdomen and back including neck Petechial rash on lower extremities No mucosal involvement, dry lips Pertinent Labs/Imaging: Leukocytosis WBC 22.2 > 19.4 AST 79 AST 72 CRP 4.5 CXR wnl * Clifford Wyatt MD - 05/28/2025 6:26 PM EDT MICU Triage Note Unit Requested: MICU Triage Decision: MICU Final Disposition: MICU Clifford Wyatt MD documented in this [id number] Consult note* Bennie Clark OT - 05/29/2025 10:16 AM EDTAssociated Order(s): IP OCCUPATIONAL THERAPY SERVICE REQUEST OCCUPATIONAL THERAPY INITIAL EVALUATION Patient seen from 1016 to 1025 on 7W unit for 9 minutes. Admit date: 05/28/2025 1:23 PM Reason for Admit: 65 year old female pmh endometrial ca, copd, gerd, hld, htn, presenting to the EDfor rash after starting clindamycin. Pt notes worsening red rash on 05/24 that started after starting clincamycin on 05/19 due to toe procedure abx. Pt notes that started on lower back as small dots with red raised rash and spread to torso and rest of body including arms and legs and now thinks its in throat. Pt notes starts as itching and now burning sensation. Diagnosis: Diffuse generalized non-pruritic rash 2/2 possible abx treatment, possible erythema multiforme, DRESS, tumor lysis syndrome UTI HTN HLD GERD Precautions/Activity Order: Mod falls Full code Delirium Regular diet Progressive mobility Procedures this admit: None Past Medical and Surgical History: PMH: Medical History[1] PSH: Surgical History[2] SUBJECTIVE: Patient Subjective: we like getting into trouble, its easy to do Patient Identified Goal(s):return home Home Living Situation Prior Functional Status: Independent Living independent with Activities of Daily Living Independent Ambulation without assistive device Independent with Instrumental Activities of Daily Living +driving Assistance Available at Home: lives with sister who is retired. Patient lives in a 1 story home 0 stairs to enter. Full Bathroom on main level. Bedroom on main level. Laundry on main level Equipment available at home: canes, RW OBJECTIVE: Patient Identification: patient verbalizing his/her name and date of . Risks and benefits of occupational therapy: Patient informed of risks and benefits of treatment Appearance: supine in bed upon arrival, IV, quality assurance monitor body, BP cuff, pulse ox, Alertness: WFL Affect: WNL Cooperation/Behavior: Appropriate dialogue with therapist and Pleasant and cooperative Communication: WFL Pain: Pain ratin/10, Location: no pain Pain Relief Interventions Implemented: None required; No pain at this time Self Care: Assistance Level Dep Max Mod Min CG CS DS AR I Set-Up Comment Feeding x Grooming/Hygiene x Seated EOB Bathing:UB x Simulated Bathing:LB x Simulated Dressing:UB x Managing gown Dressing: LB x Based on functional reach Toileting x Anticipate Transfers/Bed Mobility: Assistance Level Dep Max Mod Min CG CS DS AR I Set-Up Comment Toilet Transfers x Based on bed/chair transfer Bed Transfers x Sit to stand without AD Bed Mobility X Supine to sit EOB Functional mobility x Ambulate long household distance without AD . Patient reports wearing AFO on R foot baseline. No LOB noted. Endurance for Self Care: WFL Static Sitting Balance: WFL Dynamic Sitting Balance: WFL UE Motor: BUE WFL for ADLS Vision/Perception: WFL Cognition: Orientation: Oriented to person, place, and date Follows Commands: WFL Attention: WNL Memory: WFL Problem Solving: WFL Safety/Judgement: WFL Sequencing: WFL Other Specialized Tests: None Patient/Family Education: Instructed patient in roles of therapy and instructed in roles, goals, treatment plan: demonstrated good verbal understanding Patient remained seated in bedside chair end of session. Call medina and telephone within reach. Patient instructed to call for staff assist when ready to return to bed and for all mobility. RN aware of patient location and mobility status. DME: With Patients permission ordered no equipment via Gr[employer] Order. If any questions contact [facility] DME Provider at [phone]. 05/29/2025 6 Clicks Daily Activity OT Help from another person Eating meals 4 Help from another person taking care of personal grooming 4 Help from another person bathing 4 Help from another person putting on and taking off regular upper body clothing 4 Help from another person putting on and taking off regular lower body clothing 4 Help from another person toileting 4 OT 6 Clicks Score 24 6 Click Score Guidelines: 1 - Unable = Total/Dependent Assist 2 - A lot = Max/Moderate Assist 3 - A little = Minimum/Contact Guard Assist/Supervision 4 - Non = Modified [place]/Independent ASSESSMENT: Patient is functionally appropriate for discharge home once medically cleared. No further Occupational Therapy Services reccommended at this time. PLAN: D/C OT able to discuss the evaluation findings and treatment plan with the patient/family. The patient/family did participate in the development of plan and goals. Bennie Clark OTR/L NA = Not Assessed, I = Independent, AR = Modified Independent, Sup = Supervised, Set up = Physical Assistance for Set-up Only, Min = Minimal Assistance, Mod = Moderate Assistance, Max = Max assistance; Dep = Dependent; AROM = Active Range of Motion;PROM=Passive Rangeof Motion; MMT = Manual Muscle Test; UB = Upper Body; LB = Lower Body [1] History reviewed. No pertinent past medical history. [2] History reviewed. No pertinent surgical history. [id number] Consult note* Bennie Clark OT - 05/29/2025 10:16 AM EDTAssociated Order(s): IP OCCUPATIONAL THERAPY SERVICE REQUEST OCCUPATIONAL THERAPY INITIAL EVALUATION Patient seen from 1016 to 1025 on 7W unit for 9 minutes. Admit date: 05/28/2025 1:23 PM Reason for Admit: 65 year old female pmh endometrial ca, copd, gerd, hld, htn, presenting to the EDfor rash after starting clindamycin. Pt notes worsening red rash on 05/24 that started after starting clincamycin on 05/19 due to toe procedure abx. Pt notes that started on lower back as small dots with red raised rash and spread to torso and rest of body including arms and legs and now thinks its in throat. Pt notes starts as itching and now burning sensation. Diagnosis: Diffuse generalized non-pruritic rash 2/2 possible abx treatment, possible erythema multiforme, DRESS, tumor lysis syndrome UTI HTN HLD GERD Precautions/Activity Order: Mod falls Full code Delirium Regular diet Progressive mobility Procedures this admit: None Past Medical and Surgical History: PMH: Medical History[1] PSH: Surgical History[2] SUBJECTIVE: Patient Subjective: we like getting into trouble, its easy to do Patient Identified Goal(s):return home Home Living Situation Prior Functional Status: Independent Living independent with Activities of Daily Living Independent Ambulation without assistive device Independent with Instrumental Activities of Daily Living +driving Assistance Available at Home: lives with sister who is retired. Patient lives in a 1 story home 0 stairs to enter. Full Bathroom on main level. Bedroom on main level. Laundry on main level Equipment available at home: canes, RW OBJECTIVE: Patient Identification: patient verbalizing his/her name and date of . Risks and benefits of occupational therapy: Patient informed of risks and benefits of treatment Appearance: supine in bed upon arrival, IV, quality assurance monitor body, BP cuff, pulse ox, Alertness: WFL Affect: WNL Cooperation/Behavior: Appropriate dialogue with therapist and Pleasant and cooperative Communication: WFL Pain: Pain ratin/10, Location: no pain Pain Relief Interventions Implemented: None required; No pain at this time Self Care: Assistance Level Dep Max Mod Min CG CS DS AR I Set-Up Comment Feeding x Grooming/Hygiene x Seated EOB Bathing:UB x Simulated Bathing:LB x Simulated Dressing:UB x Managing gown Dressing: LB x Based on functional reach Toileting x Anticipate Transfers/Bed Mobility: Assistance Level Dep Max Mod Min CG CS DS AR I Set-Up Comment Toilet Transfers x Based on bed/chair transfer Bed Transfers x Sit to stand without AD Bed Mobility X Supine to sit EOB Functional mobility x Ambulate long household distance without AD . Patient reports wearing AFO on R foot baseline. No LOB noted. Endurance for Self Care: WFL Static Sitting Balance: WFL Dynamic Sitting Balance: WFL UE Motor: BUE WFL for ADLS Vision/Perception: WFL Cognition: Orientation: Oriented to person, place, and date Follows Commands: WFL Attention: WNL Memory: WFL Problem Solving: WFL Safety/Judgement: WFL Sequencing: WFL Other Specialized Tests: None Patient/Family Education: Instructed patient in roles of therapy and instructed in roles, goals, treatment plan: demonstrated good verbal understanding Patient remained seated in bedside chair end of session. Call medina and telephone within reach. Patient instructed to call for staff assist when ready to return to bed and for all mobility. RN aware of patient location and mobility status. DME: With Patients permission ordered no equipment via [employer] Order. [facility] at [phone]. 05/29/2025 6 Clicks Daily Activity OT Help from another person Eating meals 4 Help from another person taking care of personal grooming 4 Help from another person bathing 4 Help from another person putting on and taking off regular upper body clothing 4 Help from another person putting on and taking off regular lower body clothing 4 Help from another person toileting 4 OT 6 Clicks Score 24 6 Click Score Guidelines: 1 - Unable = Total/Dependent Assist 2 - A lot = Max/Moderate Assist 3 - A little = Minimum/Contact Guard Assist/Supervision 4 - Non = Modified [place]/Independent ASSESSMENT: Patient is functionally appropriate for discharge home once medically cleared. No further Occupational Therapy Services reccommended at this time. PLAN: D/C OT able to discuss the evaluation findings and treatment plan with the patient/family. The patient/family did participate in the development of plan and goals. Bennie Clark OTR/L NA = Not Assessed, I = Independent, AR = Modified Independent, Sup = Supervised, Set up = Physical Assistance for Set-up Only, Min = Minimal Assistance, Mod = Moderate Assistance, Max = Max assistance; Dep = Dependent; AROM = Active Range of Motion;PROM=Passive Rangeof Motion; MMT = Manual Muscle Test; UB = Upper Body; LB = Lower Body [1] History reviewed. No pertinent past medical history. [2] History reviewed. No pertinent surgical history. * Ofelia Siddiqui CCC-VISUAL ASSOCIATE - 05/29/2025 9:17 AM EDTAssociated Order(s): IP VISUAL ASSOCIATE SERVICE REQUEST SPEECH-LANGUAGE PATHOLOGY ACUTE CLINICAL SWALLOW EVALUATION [id number] Referral received, chart reviewed and history is noted. Reason for VISUAL ASSOCIATE Consult: Decline in speech, cognition, or swallowing Time In: 9:17 Time Out: 9:27 Session Duration: 10 minutes Patient correctly identified by patient stating name and date of . Date of Admit: 05/28/2025 History/Diagnosis:Delmis Mtz is a 65 year old female admitted on 05/28/2025 with a PMH of COPD, GERD, HTN, HLD, Endometrial cancer to ED for generalized pruritic rash that started on 05/24 days after starting Clindamycin abx ppx (05/19) s/p toe procedure and IV ancef for a hysterectomy (endometrial adenocarcinoma, 05/12/25). Per ED note, pt states the rash is non-tender/painful started in the lower back as small dots w/red raised rash that was spreading Centripetally to the torso and rest of body. Pt tried cortisone cream, benadryl, 2 steroid injections Monday and Monday w/no relief. Ptwas also recently started on Ciprofloxacin for UTI. She was in the Derm clinic at [facility] in [place] and sent for concerns of SJS. Pt endorses itching, burning, and chills, sore throat. Pt denies N/V/Diarrhea at this time, no blisters, erosions, no ocular, oral, or urogenital symptoms Precautions: Delirium precautions and Fall precautions FULL CODE Imaging: XR CHEST AP OR PA 1 VIEW 05/28/2025 IMPRESSION: No acute radiographic abnormality identified. Prior Level of Functioning: Pt denies s/s of dysphagia and/or difficulty w/ swallowing SUBJECTIVE: Patient subjective/goals: Pt received high Wolf's. Pt very cooperative and pleasant to work with. Pain: Pt denies Scale (if yes): -/10 Location: - *Report feeling itchy* OBJECTIVE: Oral mechanism/Laryngeal Function: Dentition: Natural dentition Oral Health: [place] and Moist Secretion management: Independently managing Cough: WFL Vocal Quality: WFL Cranial Nerve Quick Assessment: CN V - Trigeminal; Motor: + CN V - Trigeminal; Sensory: + CN VII - Facial; Motor: + CN IX - Glossopharyngeal & CN X - Vagus; Motor: + CN XII - Hypoglossal; Motor: + Respiratory Status/Vitals: Oxygen Requirements: Room air SpO2: 99 RR: 19 WBC: 19.4 Swallowing Current Diet: Regular solids/ IDDSI 7 Regular and Thin liquids / IDDSI 0 Thin Baseline Diet: Regular solids/ IDDSI 7 Regular and Thin liquids / IDDSI 0 Thin -Per chart, pt received Pass on nursing dysphagia screen -Pt denies history of swallowing difficulty Dysphagia Risk Factors: Predisposing: COPD Clinical signs of possible chronic dysphagia: None Known Precipitating: Skin Rash w/ edma Jamilah Swallow Protocol: State: Awake, alert, participatory Brief Cognitive Screen: What is your Name?: + Where are you right now?: + What year is it?: + Oral Mechanism Assessment: Tongue ROM: Intact Facial Symmetry: Intact Smile: Intact Pucker: Intact Lip Closure (cheek puff and hold): Intact 3-ounce water swallow challenge: Positioning: High Wolf's Mode of administration: Cup Consecutive drinking of 3oz Thin water: Achieved, uninterrupted Cough/Throat Clear: None FAIL: Inability to drink the entire 3 ounces (90cc)in sequential swallows due to stopping/starting or patient exhibits overt signs of aspiration (I.e. coughing or choking, either during or immediately after completion) XXX PASS: Complete and uninterrupted drinking of all 3 ounces (90cc) of water without overt signs of aspiration (I.e. coughing or choking, either during or immediate after completion) *The [place] Swallow Protocol (YSP) is a standardized measure with high sensitivity(96.5%) and negative prediction value (97.9%). Other Consistencies Presented: -Thin via 4oz Oral Phase: -Adequate bilabial seal; NO anterior spillage, Intact mastication and manipulation of bolus, NO oral residuals Pharyngeal Phase: -NO evidence of airway compromise w/ oral intake Risk Assessment: Factors Associated with Aspiration Related Pulmonary Complications: Positive Impact Negative impact Pulmonary Clearance Medical Conditions (COPD, CHF, asthma) x Reduced function (reduced mobility/increased dependence for care) x Pulmonary health (h/o smoking, need for supplemental O2, need for inhaled medications) x Immune Response Nutritional Status x Medical co-morbidities x Presence of current infectious process x Bacteriological Contents Dependencies for oral care x Dental care/repair x Oral hygiene x Xerostomia x Diabetes x Acid Suppression therapy (PPI, H2 Blockers) x Current Medications[1] Education: -The pt and team were educated on results and recommendations ASSESSMENT: Impression: Pt found at bedside, informed VISUAL ASSOCIATE that there were no complications during intake of breakfast (Sausage Muffin). RN present at beginning of session where pt pills presented- no overt s/s or pulmonary distress noted during pills. Pt participated in PO trials of regular thin for evaluation of swallowing safety and efficiency w/ no overt s/s of aspiration noted. Pt yields Pass on the [place] Swallow Protocol, which has a high sensitivity for airway invasion. NO clinical signs of dysphagia. Given independence for ADLs (feeding, mobility) and adequate oral hygiene , pt is appropriate for oral diet. Recommend Regular solids/ IDDSI 7 Regular and Thin liquids / IDDSI 0 Thin PLAN: ST Services not warranted in acute setting, will d/c Recommendations: -Regular solids/ IDDSI 7 Regular and Thin liquids / IDDSI 0 Thin -Oral medications per patient preference -Oral care via toothbrush/toothpaste/alcohol rinse q4h -Discharge Recommendations-> Previous Living Situation -If pt discharges home, recommend Independent, no supervision Denton Martino BA CSD, VISUAL ASSOCIATE Student Student Statement: This student therapist collaborated with a licensed, supervising therapist for patient assessment and/or treatment per the identified POC, as appropriate. This document is not finalized until reviewed and cosigned by the licensed, supervising therapist. Preservationist Statement: I was present and participated in the delivery of services for this encounter. In addition, I am responsible for the skilled judgment and assessment of all interventions provided. Ofelia Siddiqui M.A., [facility]-VISUAL ASSOCIATE Speech Language Pathologist Pager: [phone] [facility] Secure Chat Office: [phone] [1] Current Facility-Administered Medications: predniSONE (DELTASONE) tablet, 60 mg, Oral, Daily, Apryl Coe MD triamcinolone 0.1 % cream, , Topical, 2x Daily, Apryl Coe MD CARvedilol (COREG) tablet, 25 mg, Oral, 2x Daily, Moiz Birmingham MD, 25 mg at 05/28/25 4698 losartan (COZAAR) tablet, 100 mg, Oral, Daily, Moiz Birmingham MD, 100 mg at 05/29/25 0918 pantoprazole (PROTONIX) tablet, 40 mg, Oral, Daily 30 min before breakfast, Moiz Birmingham MD, 40mg at 05/29/25 09 atorvastatin (LIPITOR) tablet, 10 mg, Oral, At Bedtime, Moiz Birmingham MD, 10 mg at 05/28/252357 polyethylene glycol (MIRALAX) 17 g packet, 17 g, Oral, Daily, Shanti Condonb, DO, 17 g at 917 senna (SENOKOT) tablet, 8.6 mg, Oral, Daily, David Condonyab, DO, 8.6 mg at 05/29/25917 acetaminophen (TYLENOL) tablet, 650 mg, Oral, Q4H PRN, David Condonyab, DO enoxaparin (LOVENOX) 40 MG/0.4ML injection 40 mg, 40 mg, Subcutaneous, BID, Yehuda Condon, DO, 40mg at 05/29/25918 * Shreya Knapp, PT - 05/29/2025 7:37 AM EDTAssociated Order(s): IP PHYSICAL THERAPY SERVICE REQUEST PHYSICAL THERAPY ACUTE EVALUATION Referral received, chart reviewed. RN cleared for mobility Patient seen from 1016 to 1025 on 7W unit for 9 minutes. Admit date: 05/28/2025 1:23 PM Reason for Admit: 65 year old female presenting for generalized pruritic rash that started on after starting Clindamycin abx ppx (05/19) s/p toe procedure and IV ancef for a hysterectomy (endometrial adenocarcinoma, 05/12/25). Per ED note, pt states the rash is non-tender/painful startedin the lower back as small dots w/red raised rash that was spreading Diagnosis: Diffuse generalized non-pruritic rash 2/2 possible abx treatment, possible erythema multiforme, DRESS, tumor lysis syndrome Precautions: Moderate falls Full code Delirium Regular diet Progressive mobility Procedures this admit: NA Past Medical and Surgical History: PMH: Medical History[1]COPD, GERD, HTN, HLD, Endometrial cancer PSH: Surgical History[2] Identification was verified by patient verbalizing his/her name and date of . and patient's idband and date of . 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 Status: Independent community distances ADL/IADL Indep with ADLs Share IADLs with sister Driving: + Employment: - Falls: 0 fall(s) in the past 6 months Home: Living situation: lives in a 1 level home , Lives with sister (she is retired independent) Bedroom and bathroom on one level Level entry home Flight of steps to basement Equipment available: 2 SPCs, RW OBJECTIVE: Appearance: received supine in bed, patient gown, personal pants, Tele, pulse ox, BP cuff, rash noted to torso/arms Behavior: awake and agreeable to therapy Orientation: A&O 3 Command Following: Follows 2 step commands consistently Pain: Pain location denies pain Strength/Active ROM: B LE 4/5 Transfers/Bed Mobility Assistance Level Dep Max Mod Min CG CS DS AR I Set-Up Comment Supine to Sit x Sit to/from Stand x Ambulation x 200 ft without device demo reciprocal gait pattern - pt reports she typically wears a brace on her R LE (left at home) due to her R foot collapsing instance phase - pt did not demo any LOB or unsteadiness Stairs x Navigated 4 steps with 1 rail modified indep Session ended with pt up in recliner lines/leads intact. Call medina and telephone within reach. Patient instructed to call for staff assist for all mobility. RN aware of patient location and mobility status. Endurance: decreased Patient/Family Education: Educated on PT role in acute care setting Review and emphasis on importance of continued mobility in the hospital setting Safety and sequencing with mobility Use of call medina and nursing assistance Discussed post acute recs Answered patient questions/concerns DME: With Patients permission ordered no equipment via [employer] Order. If any questions contact [facility] DME Provider at [phone]. 05/29/2025 6 Clicks Basic Mobility PT Difficulty turning over in bed 4 Difficulty sitting down and standing up from a chair with arms 4 Difficulty moving from lying on back to sitting on the side of the bed 4 Help from another person moving to and from bed to a chair 4 Help from another person to walk in hospital room 4 Help from another person climbing 3-5 steps with a railing 4 PT 6 Clicks Score 24 6 Click Score Guidelines: 1 - Total = Requires total assistance, or cannot do at all. 2 - A lot = Requires a lot of help (maximum to moderate assistance) Can use assistive devices. 3 - A little = Requires a little help (supervision, minimal assistance) Can use assistive devices. 4 - None = Does not require any help and does the activity independently. Can use assistive devices. ASSESSMENT: Patient is functionally appropriate for discharge home once medically cleared. No further Physical Therapy services recommended at this time. PLAN OF CARE: DC PT The evaluation findings and treatment plan were discussed with the patient/family. The patient/family indicated understanding and agreement with the plan. Shreya Knapp, PT, DPT NA = Not Assessed, I = Independent, AR = Modified Independent, Sup = Supervised, Set up = Physical Assistance for Set-up Only, Min = Minimal Assistance, Mod = Moderate Assistance, Max = Max assistance; Dep = Dependent; AROM = Active Range of Motion; PROM = Passive Range of Motion; MMT = Manual Muscle Test; LE = Lower Extremity; VC = verbal cues; TC = tactile cues; PLB = pursed lip breathing [1] History reviewed. No pertinent past medical history. [2] History reviewed. No pertinent surgical history. * Mayra Garza MD - 05/28/2025 5:39 PM EDT Dermatology Inpatient Consult Attending: Dr. Mann Date of Service: 05/28/2025 Referred by: No referring provider defined for this encounter. Clinical Question: diffuse eruption HPI Delmis Mtz is a 65 year old female with a PMHx significant for HTN, HLD, GERD who presented to [facility] with diffuse rash. Pt had hysterectomy for endometrial carcinoma on 05/12 for which she received IV Ancef and ingrown toenail podiatry procedure on 05/19 on which day she began taking clindamycin. Started develping rash on 05/24 and stopped clindamycin that night - she received steroid injections (unclear dose) on 05/26 and 05/27 and was started on prednisone taper - she did not notice improvement despite these. Pt notesshe has so far taken 50mg prednisone last night and 50mg this morning. Pt sent to [facility] today by outside certified professional midwife to r/o SJS. Rash is pruritic/burning but is not painful or tender. Pt does not have blisters or erosions. Does not note ocular, oral, or urogenital symptoms. PMHx/Shx/FHx Reviewed in [facility], significant as above ROS: As noted in HPI Physical Exam Vital sign ranges over the past 24 hours (retrieved 05/28/2025 at 5:39 PM): Tmax (24 hours): 98.7 F (37.1 C) Pulse Av Min: 73 Max: 73 Systolic (24hrs), Av , Min:105 , Max:105 Diastolic (24hrs), Av, Min:60, Max:60 No data recorded Resp Av Min: 18 Max: 18 SpO2 Av % Min: 98 % Max: 98 % General: resting in chair in NAD Face, neck, chest, abdomen, back, arms, legs, mouth examined, pertinent skin findings include: - Involving the trunk, neck, face, and extremities is an erythematous mildly edematous morbiliform eruption coalescing into a large confluent erythematous plaque on the trunk - some small pustules present on forearms. Faint erythematous macules present on palms - No oral erosions identified Pertinent Labs, imaging, and/or pathology: Reviewed in [facility], significant for: WBC 19.4 CRP 4.5 Assessment and Plan: 1. Diffuse morbiliform eruption: - ddx at this time includes AGEP (secondary to clindamycin) vs DRESS vs morbiliform drug eruption vs less likely SJS/EM, SSSS - recommended punch biopsy to aid in diagnosis, pt agreeable Punch Biopsy Procedure Note - Benefits, risks, and alternatives were discussed with the patient prior to procedure including infection, bleeding, or scarring. Verbal informed consent obtained from patient prior to procedure. - Site 1: left forearm - Site 2: central abdomen Time out was performed prior to procedure. Time Out: 6:15 PM Diagnosis, treatment, risks, benefits and treatment alternatives were discussed. Verbal consent obtained. Correct patient, correct procedure, and correct procedure site confirmed. - Area(a) prepared in standard sterile fashion. - Anesthesia with 1% lidocaine with epi 1:100,000. - Lesion(s) removed with 4 mm punch. - Site(s) closed with 4.0 vicryl rapide suture(s) x 2 - Complications: None. - Specimen(s) to path. - Sites dressed. Wound care instructions reviewed with patient. - Sutures are dissolvable and do not need removal. Recommendations: - add clindamycin to pt's allergy list - pt likely to need steroid taper course - given has already taken 50mg today, will determine dosage on evaluation tomorrow - f/u biopsy results, preliminary read likely Wednesday 05/30 - please add nursing communication order regarding biopsy site (left forearm, central abdomen) care: Daily care of bx site: Leave original dressing in place for about 24 hours. Starting tomorrow, start the following: Once daily, clean biopsy site with mild soap and water. If there is drainage from the biopsy site, it may need to be cleaned more frequently than once a day. After washing, pat the area dry. DO apply vaseline or aquaphor to the wound. Apply a new band-aid over the area. Time spent with the patient includes: 90 minutes Thank you for allowing us to participate in the care of this patient. This patient was seen and discussed with Dr. Garza, attending physician, who agrees with above assessment/plan unless otherwise stated. Consult received from and note shared with primary team. Tony Dupont MD Resident in Dermatology Teaching Physician Note: History: as noted Physical findings: as noted Medical Decision Making: as noted Bx results pustular drug/AGEP. Will start Pred taper I saw and evaluated the patient. I personally obtained the loredo and critical portions of the historyand physical exam. I reviewed the resident's documentation and discussed the patient with the resident. I agree with the resident's medical decision making as documented in the resident's note. I was personally present for the loredo portions of the procedure. Mayra Garza MD documented in this [id number] NoteOCCUPATIONAL THERAPY INITIAL EVALUATION Patient seen from 1016 to 1025 on 7W unit for 9 minutes. Admit date: 05/28/2025 1:23 PM Reason for Admit: 65 year old female pmh endometrial ca, copd, gerd, hld, htn, presenting to the ED for rash after starting clindamycin. Pt notes worsening red rash on 05/24 that started after starting clincamycin on 05/19 due to toe procedure abx. Pt notes that started on lower back as small dots with red raised rash and spread to torso and rest of body including arms and legs and now thinks its in throat. Pt notes starts as itching and now burning sensation. Diagnosis: Diffuse generalized non-pruritic rash 2/2 possible abx treatment, possible erythema multiforme, DRESS, tumor lysis syndrome UTI HTN HLD GERD Precautions/Activity Order: Mod falls Full code Delirium Regular diet Progressive mobility Procedures this admit: None Past Medical and Surgical History: PMH: Medical History[1] PSH: Surgical History[2] SUBJECTIVE: Patient Subjective: we like getting into trouble, its easy to do Patient Identified Goal(s):return home Home Living Situation Prior Functional Status: Independent Living independent with Activities of Daily Living Independent Ambulation without assistive device Independent with Instrumental Activities of Daily Living +driving Assistance Available at Home: lives with sister who is retired. Patient lives in a 1 story home 0 stairs to enter. Full Bathroom on main level. Bedroom on main level. Laundry on main level Equipment available at home: canes, RW OBJECTIVE: Patient Identification: patient verbalizing his/her name and date of . Risks and benefits of occupational therapy: Patient informed of risks and benefits of treatment Appearance: supine in bed upon arrival, IV, quality assurance monitor body, BP cuff, pulse ox, Alertness: WFL Affect: WNL Cooperation/Behavior: Appropriate dialogue with therapist and Pleasant and cooperative Communication: WFL Pain: Pain ratin/10, Location: no pain Pain Relief Interventions Implemented: None required; No pain at this time Self Care: Assistance Level Dep Max Mod Min CG CS DS AR I Set-Up Comment Feeding x Grooming/Hygiene x Seated EOB Bathing:UB x Simulated Bathing:LB x Simulated Dressing:UB x Managing gown Dressing: LB x Based on functional reach Toileting x Anticipate Transfers/Bed Mobility: Assistance Level Dep Max Mod Min CG CS DS AR I Set-Up Comment Toilet Transfers x Based on bed/chair transfer Bed Transfers x Sit to stand without AD Bed Mobility X Supine to sit EOB Functional mobility x Ambulate long household distance without AD . Patient reports wearing AFO on R foot baseline. No LOB noted. Endurance for Self Care: WFL Static Sitting Balance: WFL Dynamic Sitting Balance: WFL UE Motor: BUE WFL for ADLS Vision/Perception: WFL Cognition: Orientation: Oriented to person, place, and date Follows Commands: WFL Attention: WNL Memory: WFL Problem Solving: WFL Safety/Judgement: WFL Sequencing: WFL Other Specialized Tests: None Patient/Family Education: Instructed patient in roles of therapy and instructed in roles, goals, treatment plan: demonstrated good verbal understanding Patient remained seated in bedside chair end of session. Call medina and telephone within reach. Patient instructed to call for staff assist when ready to return to bed and for all mobility. RN aware of patient location and mobility status. DME: With Patients permission ordered no equipment via [employer] Order. If any questions contact [facility] DME Provider at [phone]. 05/29/2025 6 Clicks Daily Activity OT Help from another person Eating meals 4 Help from another person taking care of personal grooming 4 Help from another person bathing 4 Help from another person putting on and taking off regular upper body clothing 4 Help from another person putting on and taking off regular lower body clothing 4 Help from another person toileting 4 OT 6 Clicks Score 24 6 Click Score Guidelines: 1 - Unable = Total/Dependent Assist 2 - A lot = Max/Moderate Assist 3 - A little = Minimum/Contact Guard Assist/Supervision 4 - Non = Modified [place]/Independent ASSESSMENT: Patient is functionally appropriate for discharge home once medically cleared. No further Occupational Therapy Services reccommended at this time. PLAN: D/C OT able to discuss the evaluation findings and treatment plan with the patient/family. The patient/family did participate in the development of plan and goals. Bennie Clark, OTR/L NA = Not Assessed, I = Independent, AR = Modified Independent, Sup = Supervised, Set up = Physical Assistance for Set-up Only, Min = Minimal Assistance, Mod = Moderate Assistance, Max = Max assistance; Dep = Dependent; AROM = Active Range of Motion;PROM=Passive Range of Motion; MMT = Manual Muscle Test; UB = Upper Body; LB = Lower Body [1] History r (more content not included)...[email or web address] [id number] Consult note* Ofelia Siddiqui, [facility]-VISUAL ASSOCIATE - 05/29/2025 9:17 AM EDTAssociated Order(s): IP VISUAL ASSOCIATE SERVICE REQUEST SPEECH-LANGUAGE PATHOLOGY ACUTE CLINICAL SWALLOW EVALUATION [id number]/1 Referral received, chart reviewed and history is noted. Reason for VISUAL ASSOCIATE Consult: Decline in speech, cognition, or swallowing Time In: 9:17 Time Out: 9:27 Session Duration: 10 minutes Patient correctly identified by patient stating name and date of . Date of Admit: 05/28/2025 History/Diagnosis:Delmis Mtz is a 65 year old female admitted on 05/28/2025 with a PMH of COPD, GERD, HTN, HLD, Endometrial cancer to ED for generalized pruritic rash that started on 05/24 days after starting Clindamycin abx ppx (05/19) s/p toe procedure and IV ancef for a hysterectomy (endometrial adenocarcinoma, 05/12/25). Per ED note, pt states the rash is non-tender/painful started in the lower back as small dots w/red raised rash that was spreading Centripetally to the torso and rest of body. Pt tried cortisone cream, benadryl, 2 steroid injections Monday and Monday w/no relief. Ptwas also recently started on Ciprofloxacin for UTI. She was in the Derm clinic at [facility] in [place] and sent for concerns of SJS. Pt endorses itching, burning, and chills, sore throat. Pt denies N/V/Diarrhea at this time, no blisters, erosions, no ocular, oral, or urogenital symptoms Precautions: Delirium precautions and Fall precautions FULL CODE Imaging: XR CHEST AP OR PA 1 VIEW 05/28/2025 IMPRESSION: No acute radiographic abnormality identified. Prior Level of Functioning: Pt denies s/s of dysphagia and/or difficulty w/ swallowing SUBJECTIVE: Patient subjective/goals: Pt received high Wolf's. Pt very cooperative and pleasant to work with. Pain: Pt denies Scale (if yes): -/10 Location: - *Report feeling itchy* OBJECTIVE: Oral mechanism/Laryngeal Function: Dentition: Natural dentition Oral Health: [place] and Moist Secretion management: Independently managing Cough: WFL Vocal Quality: WFL Cranial Nerve Quick Assessment: CN V - Trigeminal; Motor: + CN V - Trigeminal; Sensory: + CN VII - Facial; Motor: + CN IX - Glossopharyngeal & CN X - Vagus; Motor: + CN XII - Hypoglossal; Motor: + Respiratory Status/Vitals: Oxygen Requirements: Room air SpO2: 99 RR: 19 WBC: 19.4 Swallowing Current Diet: Regular solids/ IDDSI 7 Regular and Thin liquids / IDDSI 0 Thin Baseline Diet: Regular solids/ IDDSI 7 Regular and Thin liquids / IDDSI 0 Thin -Per chart, pt received Pass on nursing dysphagia screen -Pt denies history of swallowing difficulty Dysphagia Risk Factors: Predisposing: COPD Clinical signs of possible chronic dysphagia: None Known Precipitating: Skin Rash w/ edma Jamilah Swallow Protocol: State: Awake, alert, participatory Brief Cognitive Screen: What is your Name?: + Where are you right now?: + What year is it?: + Oral Mechanism Assessment: Tongue ROM: Intact Facial Symmetry: Intact Smile: Intact Pucker: Intact Lip Closure (cheek puff and hold): Intact 3-ounce water swallow challenge: Positioning: High Wolf's Mode of administration: Cup Consecutive drinking of 3oz Thin water: Achieved, uninterrupted Cough/Throat Clear: None FAIL: Inability to drink the entire 3 ounces (90cc)in sequential swallows due to stopping/starting or patient exhibits overt signs of aspiration (I.e. coughing or choking, either during or immediately after completion) XXX PASS: Complete and uninterrupted drinking of all 3 ounces (90cc) of water without overt signs of aspiration (I.e. coughing or choking, either during or immediate after completion) *The [place] Swallow Protocol (YSP) is a standardized measure with high sensitivity(96.5%) and negative prediction value (97.9%). Other Consistencies Presented: -Thin via 4oz Oral Phase: -Adequate bilabial seal; NO anterior spillage, Intact mastication and manipulation of bolus, NO oral residuals Pharyngeal Phase: -NO evidence of airway compromise w/ oral intake Risk Assessment: Factors Associated with Aspiration Related Pulmonary Complications: Positive Impact Negative impact Pulmonary Clearance Medical Conditions (COPD, CHF, asthma) x Reduced function (reduced mobility/increased dependence for care) x Pulmonary health (h/o smoking, need for supplemental O2, need for inhaled medications) x Immune Response Nutritional Status x Medical co-morbidities x Presence of current infectious process x Bacteriological Contents Dependencies for oral care x Dental care/repair x Oral hygiene x Xerostomia x Diabetes x Acid Suppression therapy (PPI, H2 Blockers) x Current Medications[1] Education: -The pt and team were educated on results and recommendations ASSESSMENT: Impression: Pt found at bedside, informed VISUAL ASSOCIATE that there were no complications during intake of breakfast (Sausage Muffin). RN present at beginning of session where pt pills presented- no overt s/s or pulmonary distress noted during pills. Pt participated in PO trials of regular thin for evaluation of swallowing safety and efficiency w/ no overt s/s of aspiration noted. Pt yields Pass on the [place] Swallow Protocol, which has a high sensitivity for airway invasion. NO clinical signs of dysphagia. Given independence for ADLs (feeding, mobility) and adequate oral hygiene , pt is appropriate for oral diet. Recommend Regular solids/ IDDSI 7 Regular and Thin liquids / IDDSI 0 Thin PLAN: ST Services not warranted in acute setting, will d/c Recommendations: -Regular solids/ IDDSI 7 Regular and Thin liquids / IDDSI 0 Thin -Oral medications per patient preference -Oral care via toothbrush/toothpaste/alcohol rinse q4h -Discharge Recommendations-> Previous Living Situation -If pt discharges home, recommend Independent, no supervision Denton Martino BA CSD, VISUAL ASSOCIATE Student Student Statement: This student therapist collaborated with a licensed, supervising therapist for patient assessment and/or treatment per the identified POC, as appropriate. This document is not finalized until reviewed and cosigned by the licensed, supervising therapist. Preservationist Statement: I was present and participated in the delivery of services for this encounter. In addition, I am responsible for the skilled judgment and assessment of all interventions provided. Ofelia Siddiqui M.A., [place]-VISUAL ASSOCIATE Speech Language Pathologist Pager: [phone] [facility] Office: [phone] [1] Current Facility-Administered Medications: predniSONE (DELTASONE) tablet, 60 mg, Oral, Daily, Apryl Coe MD triamcinolone 0.1 % cream, , Topical, 2x Daily, Apryl Coe MD CARvedilol (COREG) tablet, 25 mg, Oral, 2x Daily, Moiz Birmingham MD, 25 mg at 05/28/252357 losartan (COZAAR) tablet, 100 mg, Oral, Daily, Moiz Birmingham MD, 100 mg at 05/29/25917 pantoprazole (PROTONIX) tablet, 40 mg, Oral, Daily 30 min before breakfast, Moiz Birmingham MD, 40mg at 05/29/25917 atorvastatin (LIPITOR) tablet, 10 mg, Oral, At Bedtime, Moiz Birmingham MD, 10 mg at 05/28/252357 polyethylene glycol (MIRALAX) 17 g packet, 17 g, Oral, Daily, Taurus, Yehuda, DO, 17 g at 917 senna (SENOKOT) tablet, 8.6 mg, Oral, Daily, Taurus, Yehuda, DO, 8.6 mg at 05/29/25917 acetaminophen (TYLENOL) tablet, 650 mg, Oral, Q4H PRN, Taurus, Yehuda, DO enoxaparin (LOVENOX) 40 MG/0.4ML injection 40 mg, 40 mg, Subcutaneous, BID, Taurus, Yehuda, DO, 40mg at 05/29/25918 [id number] NoteSPEECH-LANGUAGE PATHOLOGY ACUTE CLINICAL SWALLOW EVALUATION [id number]/1 Referral received, chart reviewed and history is noted. Reason for VISUAL ASSOCIATE Consult: Decline in speech, cognition, or swallowing Time In: 9:17 Time Out: 9:27 Session Duration: 10 minutes Patient correctly identified by patient stating name and date of . Date of Admit: 05/28/2025 History/Diagnosis:Delmis Mtz is a 65 year old female admitted on 05/28/2025 with a PMH of COPD, GERD, HTN, HLD, Endometrial cancer to ED for generalized pruritic rash that started on 05/24 days after starting Clindamycin abx ppx (05/19) s/p toe procedure and IV ancef for a hysterectomy (endometrial adenocarcinoma, 05/12/25). Per ED note, pt states the rash is non-tender/painful started in the lower back as small dots w/red raised rash that was spreading Centripetally to the torso and rest of body. Pt tried cortisone cream, benadryl, 2 steroid injections Monday and Monday w/no relief. Pt was also recently started on Ciprofloxacin for UTI. She was in the Derm clinic at [facility] in [place] and sent for concerns of SJS. Pt endorses itching, burning, and chills, sore throat. Pt denies N/V/Diarrhea at this time, no blisters, erosions, no ocular, oral, or urogenital symptoms Precautions: Delirium precautions and Fall precautions FULL CODE Imaging: XR CHEST AP OR PA 1 VIEW 05/28/2025 IMPRESSION: No acute radiographic abnormality identified. Prior Level of Functioning: Pt denies s/s of dysphagia and/or difficulty w/ swallowing SUBJECTIVE: Patient subjective/goals: Pt received high Wolf's. Pt very cooperative and pleasant to work with. Pain: Pt denies Scale (if yes): -/10 Location: - *Report feeling itchy* OBJECTIVE: Oral mechanism/Laryngeal Function: Dentition: Natural dentition Oral Health: [place] and Moist Secretion management: Independently managing Cough: WFL Vocal Quality: WFL Cranial Nerve Quick Assessment: CN V - Trigeminal; Motor: + CN V - Trigeminal; Sensory: + CN VII - Facial; Motor: + CN IX - Glossopharyngeal AND CN X - Vagus; Motor: + CN XII - Hypoglossal; Motor: + Respiratory Status/Vitals: Oxygen Requirements: Room air SpO2: 99 RR: 19 WBC: 19.4 Swallowing Current Diet: Regular solids/ IDDSI 7 Regular and Thin liquids / IDDSI 0 Thin Baseline Diet: Regular solids/ IDDSI 7 Regular and Thin liquids / IDDSI 0 Thin -Per chart, pt received Pass on nursing dysphagia screen -Pt denies history of swallowing difficulty Dysphagia Risk Factors: Predisposing: COPD Clinical signs of possible chronic dysphagia: None Known Precipitating: Skin Rash w/ edma [place] Swallow Protocol: State: Awake, alert, participatory Brief Cognitive Screen: What is your Name?: + Where are you right now?: + What year is it?: + Oral Mechanism Assessment: Tongue ROM: Intact Facial Symmetry: Intact Smile: Intact Pucker: Intact Lip Closure (cheek puff and hold): Intact 3-ounce water swallow challenge: Positioning: High Wolf's Mode of administration: Cup Consecutive drinking of 3oz Thin water: Achieved, uninterrupted Cough/Throat Clear: None FAIL: Inability to drink the entire 3 ounces (90cc)in sequential swallows due to stopping/starting or patient exhibits overt signs of aspiration (I.e. coughing or choking, either during or immediately after completion) XXX PASS: Complete and uninterrupted drinking of all 3 ounces (90cc) of water without overt signs of aspiration (I.e. coughing or choking, either during or immediate after completion) *The [place] Swallow Protocol (YSP) is a standardized measure with high sensitivity(96.5%) and negative prediction value (97.9%). Other Consistencies Presented: -Thin via 4oz Oral Phase: -Adequate bilabial seal; NO anterior spillage, Intact mastication and manipulation of bolus, NO oral residuals Pharyngeal Phase: -NO evidence of airway compromise w/ oral intake Risk Assessment: Factors Associated with Aspiration Related Pulmonary Complications: Positive Impact Negative impact Pulmonary Clearance Medical Conditions (COPD, CHF, asthma) x Reduced function (reduced mobility/increased dependence for care) x Pulmonary health (h/o smoking, need for supplemental O2, need for inhaled medications) x Immune Response Nutritional Status x Medical co-morbidities x Presence of current infectious process x Bacteriological Contents Dependencies for oral care x Dental care/repair x Oral hygiene x Xerostomia x Diabetes x Acid Suppression therapy (PPI, H2 Blockers) x Current Medications[1] Education: -The pt and team were educated on results and recommendations ASSESSMENT: Impression: Pt found at bedside, informed VISUAL ASSOCIATE that there were no complications during intake of breakfast (Sausage Muffin). RN present at beginning of session where pt pills presented- no overt s/s or pulmonary distress noted during pills. Pt participated in PO trials of regular thin (more content not included)...[email or web address] [id number] Consult note* Shreya Knapp, PT - 05/29/2025 7:37 AM EDTAssociated Order(s): IP PHYSICAL THERAPY SERVICE REQUEST PHYSICAL THERAPY ACUTE EVALUATION Referral received, chart reviewed. RN cleared for mobility Patient seen from 1016 to 1025 on 7W unit for 9 minutes. Admit date: 05/28/2025 1:23 PM Reason for Admit: 65 year old female presenting for generalized pruritic rash that started on 05/24days after starting Clindamycin abx ppx (05/19) s/p toe procedure and IV ancef for a hysterectomy (endometrial adenocarcinoma, 05/12/25). Per ED note, pt states the rash is non-tender/painful startedin the lower back as small dots w/red raised rash that was spreading Diagnosis: Diffuse generalized non-pruritic rash 2/2 possible abx treatment, possible erythema multiforme, DRESS, tumor lysis syndrome Precautions: Moderate falls Full code Delirium Regular diet Progressive mobility Procedures this admit: NA Past Medical and Surgical History: PMH: Medical History[1]COPD, GERD, HTN, HLD, Endometrial cancer PSH: Surgical History[2] Identification was verified by patient verbalizing his/her name and date of . and patient's idband and date of . 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 Status: Independent community distances ADL/IADL Indep with ADLs Share IADLs with sister Driving: + Employment: - Falls: 0 fall(s) in the past 6 months Home: Living situation: lives in a 1 level home , Lives with sister (she is retired independent) Bedroom and bathroom on one level Level entry home Flight of steps to basement Equipment available: 2 SPCs, RW OBJECTIVE: Appearance: received supine in bed, patient gown, personal pants, Tele, pulse ox, BP cuff, rash noted to torso/arms Behavior: awake and agreeable to therapy Orientation: A&O 3 Command Following: Follows 2 step commands consistently Pain: Pain location denies pain Strength/Active ROM: B LE 4/5 Transfers/Bed Mobility Assistance Level Dep Max Mod Min CG CS DS AR I Set-Up Comment Supine to Sit x Sit to/from Stand x Ambulation x 200 ft without device demo reciprocal gait pattern - pt reports she typically wears a brace on her R LE (left at home) due to her R foot collapsing instance phase - pt did not demo any LOB or unsteadiness Stairs x Navigated 4 steps with 1 rail modified indep Session ended with pt up in recliner lines/leads intact. Call medina and telephone within reach. Patient instructed to call for staff assist for all mobility. RN aware of patient location and mobility status. Endurance: decreased Patient/Family Education: Educated on PT role in acute care setting Review and emphasis on importance of continued mobility in the hospital setting Safety and sequencing with mobility Use of call medina and nursing assistance Discussed post acute recs Answered patient questions/concerns DME: With Patients permission ordered no equipment via [employer] Order. If any questions contact [facility] DME Provider at [phone]. 05/29/2025 6 Clicks Basic Mobility PT Difficulty turning over in bed 4 Difficulty sitting down and standing up from a chair with arms 4 Difficulty moving from lying on back to sitting on the side of the bed 4 Help from another person moving to and from bed to a chair 4 Help from another person to walk in hospital room 4 Help from another person climbing 3-5 steps with a railing 4 PT 6 Clicks Score 24 6 Click Score Guidelines: 1 - Total = Requires total assistance, or cannot do at all. 2 - A lot = Requires a lot of help (maximum to moderate assistance) Can use assistive devices. 3 - A little = Requires a little help (supervision, minimal assistance) Can use assistive devices. 4 - None = Does not require any help and does the activity independently. Can use assistive devices. ASSESSMENT: Patient is functionally appropriate for discharge home once medically cleared. No further Physical Therapy services recommended at this time. PLAN OF CARE: DC PT The evaluation findings and treatment plan were discussed with the patient/family. The patient/family indicated understanding and agreement with the plan. Shreya Knapp PT, DPT NA = Not Assessed, I = Independent, AR = Modified Independent, Sup = Supervised, Set up = Physical Assistance for Set-up Only, Min = Minimal Assistance, Mod = Moderate Assistance, Max = Max assistance; Dep = Dependent; AROM = Active Range of Motion; PROM = Passive Range of Motion; MMT = Manual Muscle Test; LE = Lower Extremity; VC = verbal cues; TC = tactile cues; PLB = pursed lip breathing [1] History reviewed. No pertinent past medical history. [2] History reviewed. No pertinent surgical history. [id number] NotePHYSICAL THERAPY ACUTE EVALUATION Referral received, chart reviewed. RN cleared for mobility Patient seen from 1016 to 1025 on 7W unit for 9 minutes. Admit date: 05/28/2025 1:23 PM Reason for Admit: 65 year old female presenting for generalized pruritic rash that started on 05/24 days after starting Clindamycin abx ppx (05/19) s/p toe procedure and IV ancef for a hysterectomy (endometrial adenocarcinoma, 05/12/25). Per ED note, pt states the rash is non-tender/painful started in the lower back as small dots w/red raised rash that was spreading Diagnosis: Diffuse generalized non-pruritic rash 2/2 possible abx treatment, possible erythema multiforme, DRESS, tumor lysis syndrome Precautions: Moderate falls Full code Delirium Regular diet Progressive mobility Procedures this admit: NA Past Medical and Surgical History: PMH: Medical History[1]COPD, GERD, HTN, HLD, Endometrial cancer PSH: Surgical History[2] Identification was verified by patient verbalizing his/her name and date of . and patient's id band and date of . 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 Status: Independent community distances ADL/IADL Indep with ADLs Share IADLs with sister Driving: + Employment: - Falls: 0 fall(s) in the past 6 months Home: Living situation: lives in a 1 level home , Lives with sister (she is retired independent) Bedroom and bathroom on one level Level entry home Flight of steps to basement Equipment available: 2 SPCs, RW OBJECTIVE: Appearance: received supine in bed, patient gown, personal pants, Tele, pulse ox, BP cuff, rash noted to torso/arms Behavior: awake and agreeable to therapy Orientation: A AND O 3 Command Following: Follows 2 step commands consistently Pain: Pain location denies pain Strength/Active ROM: B LE 4/5 Transfers/Bed Mobility Assistance Level Dep Max Mod Min CG CS DS AR I Set-Up Comment Supine to Sit x Sit to/from Stand x Ambulation x 200 ft without device demo reciprocal gait pattern - pt reports she typically wears a brace on her R LE (left at home) due to her R foot collapsing in stance phase - pt did not demo any LOB or unsteadiness Stairs x Navigated 4 steps with 1 rail modified indep Session ended with pt up in recliner lines/leads intact. Call medina and telephone within reach. Patient instructed to call for staff assist for all mobility. RN aware of patient location and mobility status. Endurance: decreased Patient/Family Education: Educated on PT role in acute care setting Review and emphasis on importance of continued mobility in the hospital setting Safety and sequencing with mobility Use of call medina and nursing assistance Discussed post acute recs Answered patient questions/concerns DME: With Patients permission ordered no equipment via [employer] Order. If any questions contact [facility] DME Provider at [phone]. 05/29/2025 6 Clicks Basic Mobility PT Difficulty turning over in bed 4 Difficulty sitting down and standing up from a chair with arms 4 Difficulty moving from lying on back to sitting on the side of the bed 4 Help from another person moving to and from bed to a chair 4 Help from another person to walk in hospital room 4 Help from another person climbing 3-5 steps with a railing 4 PT 6 Clicks Score 24 6 Click Score Guidelines: 1 - Total = Requires total assistance, or cannot do at all. 2 - A lot = Requires a lot of help (maximum to moderate assistance) Can use assistive devices. 3 - A little = Requires a little help (supervision, minimal assistance) Can use assistive devices. 4 - None = Does not require any help and does the activity independently. Can use assistive devices. ASSESSMENT: Patient is functionally appropriate for discharge home once medically cleared. No further Physical Therapy services recommended at this time. PLAN OF CARE: DC PT The evaluation findings and treatment plan were discussed with the patient/family. The patient/family indicated understanding and agreement with the plan. Shreya Knapp, PT, DPT NA = Not Assessed, I = Independent, AR = Modified Independent, Sup = Supervised, Set up = Physical Assistance for Set-up Only, Min = Minimal Assistance, Mod = Moderate Assistance, Max = Max assistance; Dep = Dependent; AROM = Active Range of Motion; PROM = Passive Range of Motion; MMT = Manual Muscle Test; LE = Lower Extremity; VC = verbal cues; TC = tactile cues; PLB = pursed lip breathing [1] History reviewed. No pertinent past medical history. [2] History reviewed. No pertinent surgical history.[facility] 05-28-2025 History and physical note* Yehuda Condon DO - 05/28/2025 8:25 PM EDT Images from the original note were not included. [facility] Step Down Unit - H&P Patient: Delmis Mtz : 1960 Sex: female Room: [place] [id number] Admission: 05/28/2025 Today: 05/28/2025 (Length of stay: 1 day(s)) HISTORY OF PRESENT ILLNESS: CHIEF COMPLAINT: Chief Complaint Patient presents with Generalized redness/erythema/rash Started clindamycin on 05/19. Rash all over body Monday morning. Stopped clindamycin Monday night. Saw doctor on Monday & received cortisone shot Monday & Monday. Monday started prednisone. Seen certified professional midwife at [facility] in [place] today & sent here for rustam sewell Delmis Mtz is a 65 year old female admitted on 05/28/2025 with a PMH of COPD, GERD, HTN, HLD, Endometrial cancer to ED for generalized pruritic rash that started on 05/24 days after starting Clindamycin abx ppx (05/19) s/p toe procedure and IV ancef for a hysterectomy (endometrial adenocarcinoma, 05/12/25). Per ED note, pt states the rash is non-tender/painful started in the lower back as small dots w/red raised rash that was spreading Centripetally to the torso and rest of body. Pt tried cortisone cream, benadryl, 2 steroid injections Monday and Monday w/no relief. Pt was also recentlystarted on Ciprofloxacin for UTI. She was in the Derm clinic at [facility] in [place] and sent for concerns of SJS. Pt endorses itching, burning, and chills, sore throat. Pt denies N/V/Diarrhea at this time, no blisters, erosions, no ocular, oral, or urogenital symptoms Today the patient is evaluated bedside, is extremely pleasant, alert and oriented x 3, is stating the rash started Monday (05/24/25) on her torso, then spread to her back and legs. Pt states it hasbeen itchy, progressively involving more skin, is warm to the touch, mildly blanchable, not sloughing off with palpation. Pt states today her R eye is dry, she has a scratchy throat, mild nausea, continued reported dysuria/discharge, and generalized pruritis. She denies diarrhea, chest pain, vomiting, new abdominal pain (Laparoscopic sites are tenter frame back tender, but C/D/I), headache, dysphagia, and blurry vision at this time. Pt denies recent travel exposure in the [place] or elsewhere, lives at home with her sister, no new detergents, soaps, changes in laundry, or pets at home. Otherwise has no other complaints at this time. ED Course: - VS: 105/60, HR: 73, 98.7 F, resp 18, SpO2 98% - Labs: CBC, WBC at 22.2 (next one ordered 19.4) (possible de margination from steroids), BMP hyponatremic at 134, elevated K+ due to hemolysis from collection, GFR 56, Need to repeat BMP due to BUN/Cr being grossly icteric (06/12.09), HFTs AST 72, ALT 79, Alk phosp 105, CRP 4.5, ESR 22, lactate 2.1, Skin biopsy pending, - EKG: NSR, RRR, Normal axis deviation, no acute ST changes, unspecified T wave inversions, normal R wave progression, normal QTc - Imaging: Chest x-ray (05/28/25) IMPRESSION: No acute radiographic abnormality identified. - Interventions: - Ju -, derm consult, SDU admission, DDX: DRESS due to new meds, Erythema multiforme, MAHA/TTP/DIC less likely, not clinically concernedfor meningococcemia no meningeal signs noted, Nec. Fasc. Not suspicious due to no pain out of proportion, crepitus, bullae, and discharge. No mucosal involvement at this time, not suspicious for pemphigus vulgaris. Staph. Scaled skin + toxic shock syndrome not likely as pt is afebrile, no exfoliation, non-toxic. Contact dermatitis less likely as no recent changes or exposures to new soaps, detergents, and clothes. No herald patch seen, viral exanthem and zoster less likely as no dermatomal and vesicular lesions present. ROS: As noted in HPI PAST MEDICAL HISTORY: Medical History[1] Surgical History[2] Family History[3] Social History[4] Medications Ordered Prior to Encounter[5] Allergies[6] OBJECTIVE: Objective Temperature: [98.1 F (36.7 C)-98.7 F (37.1 C)] 98.1 F (36.7 C) Heart Rate: [56-83] 60 Respiratory Rate: [13-18] 18 BP: (105-154)/(60-109) 124/109 O2 Device: Room air at 100 % No intake or output data in the 24 hours ending 05/28/25 2304 LABS: CBC: (05/28/2025: 4:21 PM) WBC 19.4 \ Hgb 12.4 / Plt 200 / Hct 37.4 \ Results Review BMP: (05/28/2025: 4:21 PM) 138 105 23 Gluc 151 4.4 23 0.95 Mg PO4 Ca N/A N/A 8.8 (1.6-2.8) (2.5-4.8) (8.4-10) Baseline Weight 297 Admission Weight Weight: 297 lb (134.7 kg) Today's Weight Weight: 297 lb (134.7 kg) BMI 41.42 PHYSICAL EXAM: General: NAD. HEENT: EOMI. Conjunctiva clear. No scleral icterus. Heart: RRR. No murmurs or rub. Lungs: CTAB. Abdomen: Soft, tender at surgical sites, generalized redness, biopsy site under umbilicus Extremities: No LE edema. Neuro: No focal deficits. A&Ox3, sensation intact Skin: Warm & dry, generalized redness, raised, non-tender lesions involving > 50% of body IMAGING/OTHER: Chest x-ray was last done on 05/28/2025 Echocardiogram date: Not Found Chest x-ray (05/28/25) IMPRESSION: No acute radiographic abnormality identified Echocardiogram (05/28/25) - NSR, RRR, Normal axis deviation, no acute ST changes, unspecified T wave inversions, normal R wave progression, normal QTc CONSULTS: IP VISUAL ASSOCIATE SERVICE REQUEST ASSESSMENT AND PLAN: Delmis Mtz is a 65 year old female with a history of with a PMH of COPD, GERD, HTN, HLD, Endometrial cancer to ED for generalized pruritic rash that started on 05/24 days after starting Clindamycin abx ppx (05/19) s/p toe procedure and IV ancef for a hysterectomy (endometrial adenocarcinoma, 0 05/12/25). Per ED note, pt states the rash is non-tender/painful started in the lower back as small dots w/red raised rash that was spreading Centripetally to the torso and rest of body. PROBLEM LIST: Diffuse generalized non-pruritic rash 2/2 possible abx treatment, possible erythema multiforme, DRESS, tumor lysis syndrome - Pt recently prescribed clindamycin (05/19/25) for toe procedure, IV ancef s/p hysterectomy (05/12), ciprofloxacin for UTI, Leukocytoclastic vasculitis - Diffuse generalized maculopapular rash, non-tender, nikolsky -, no bullae, crepitus, discharge noted - Pt prescribed steroid injections x 2, refractory to benadryl, cortisone cream - Afebrile, leukocytosis possibly due to demargination - Elevated lactate possible due to extensive inflammatory response - Derm consulted, on board, pending recs - Clinically monitor for amount of skin involvement TEN > 30, SJS < 10% of overall skin involvement Plan - Ordered repeat HFTs to trend high values of AST/ALT/ALK phos. And hepatitis panel for transaminitis - Ordered BMP to reassess - Ordered CBC to trend WBC count to r/o infectious etiology, previous elevations possibly due to recent steroid usage, low threshold for abx usage - Ordered CK, if elevated suspicious for skin intracellular damage - Uric acid ordered for stage 1 adenocarcinoma malignancy of uterus, r/o Tumor lysis syndrome, low clinical suspicion at this time - Fluid resuscitation if pt is clinically deteriorating, Pt to remain PO for now, will assess for mucosal involvement with time - K+ appears normal at 4.4, maintain > 4 and replenish PRN, Na 138, glucose at 151, GFR 66, BUN/Cr 23/0.95 - Hold home lasix 40mg due to concern for dehydration UTI - Repeat UA ordered due to dysuria and recent ciprofloxacin usage for UTI HTN: - Pt took at homes meds today, will continue tomorrow dose of losartan 100 mg daily, 25 mg COREG HLD - Continue at home Lipitor 10 mg GERD - Continue at home Pantoprazole 40 mg Feeding NPO Analgesia Tylenol Sedation N/A VTE ppx Lovenox HOB Eval 30 Degrees Ulcer ppx On home Pantoprazole Glycemic Control Target 140-180 SBT N/A Bowel Regimen Miralax/Senna Indwelling N/A Drug De-Escalation D/c all antibiotic courses Dispo: Pending Code Status: Full Code This plan is preliminary until finalized by an attending physician. Yehuda Condon DO PGY-1 Internal Medicine Stepdown Unit Pager [phone] [1] History reviewed. No pertinent past medical history. [2] History reviewed. No pertinent surgical history. [3] No family history on file. [4] [5] No current facility-administered medications on file prior to encounter. No current outpatient medications on file prior to encounter. [6] Allergies Allergen Reactions Bactrim [Sulfamethoxazole W-Trimethoprim] Clindamycin Levaquin [Levofloxacin] Penicillins [facility] Work Phone: [phone] History and physical note* Yehuda Condon DO - 05/28/2025 8:25 PM EDT Images from the original note were not included. [facility] Step Down Unit - H&P Patient: Delmis Mtz : 1960 Sex: female Room: [place] [address] Admission: 05/28/2025 Today: 05/28/2025 (Length of stay: 1 day(s)) HISTORY OF PRESENT ILLNESS: CHIEF COMPLAINT: Chief Complaint Patient presents with Generalized redness/erythema/rash Started clindamycin on 05/19. Rash all over body Monday morning. Stopped clindamycin Monday night. Saw doctor on Monday & received cortisone shot Monday & Monday. Monday started prednisone. Seen certified professional midwife at [facility] in [place] today & sent here for rustam sewell Delmis Mtz is a 65 year old female admitted on 05/28/2025 with a PMH of COPD, GERD, HTN, HLD, Endometrial cancer to ED for generalized pruritic rash that started on 05/24 days after starting Clindamycin abx ppx (05/19) s/p toe procedure and IV ancef for a hysterectomy (endometrial adenocarcinoma, 05/12/25). Per ED note, pt states the rash is non-tender/painful started in the lower back as small dots w/red raised rash that was spreading Centripetally to the torso and rest of body. Pt tried cortisone cream, benadryl, 2 steroid injections Monday and Monday w/no relief. Pt was also recentlystarted on Ciprofloxacin for UTI. She was in the Derm clinic at [facility] in [place] and sent for concerns of SJS. Pt endorses itching, burning, and chills, sore throat. Pt denies N/V/Diarrhea at this time, no blisters, erosions, no ocular, oral, or urogenital symptoms Today the patient is evaluated bedside, is extremely pleasant, alert and oriented x 3, is stating the rash started Monday (05/24/25) on her torso, then spread to her back and legs. Pt states it hasbeen itchy, progressively involving more skin, is warm to the touch, mildly blanchable, not sloughing off with palpation. Pt states today her R eye is dry, she has a scratchy throat, mild nausea, continued reported dysuria/discharge, and generalized pruritis. She denies diarrhea, chest pain, vomiting, new abdominal pain (Laparoscopic sites are tenter frame back tender, but C/D/I), headache, dysphagia, and blurry vision at this time. Pt denies recent travel exposure in the [place] or elsewhere, lives at home with her sister, no new detergents, soaps, changes in laundry, or pets at home. Otherwise has no other complaints at this time. ED Course: - VS: 105/60, HR: 73, 98.7 F, resp 18, SpO2 98% - Labs: CBC, WBC at 22.2 (next one ordered 19.4) (possible de margination from steroids), BMP hyponatremic at 134, elevated K+ due to hemolysis from collection, GFR 56, Need to repeat BMP due to BUN/Cr being grossly icteric (06/12.09), HFTs AST 72, ALT 79, Alk phosp 105, CRP 4.5, ESR 22, lactate 2.1, Skin biopsy pending, - EKG: NSR, RRR, Normal axis deviation, no acute ST changes, unspecified T wave inversions, normal R wave progression, normal QTc - Imaging: Chest x-ray (05/28/25) IMPRESSION: No acute radiographic abnormality identified. - Interventions: - Woodolsky -, derm consult, SDU admission, DDX: DRESS due to new meds, Erythema multiforme, MAHA/TTP/DIC less likely, not clinically concernedfor meningococcemia no meningeal signs noted, Nec. Fasc. Not suspicious due to no pain out of proportion, crepitus, bullae, and discharge. No mucosal involvement at this time, not suspicious for pemphigus vulgaris. Staph. Scaled skin + toxic shock syndrome not likely as pt is afebrile, no exfoliation, non-toxic. Contact dermatitis less likely as no recent changes or exposures to new soaps, detergents, and clothes. No herald patch seen, viral exanthem and zoster less likely as no dermatomal and vesicular lesions present. ROS: As noted in HPI PAST MEDICAL HISTORY: Medical History[1] Surgical History[2] Family History[3] Social History[4] Medications Ordered Prior to Encounter[5] Allergies[6] OBJECTIVE: Objective Temperature: [98.1 F (36.7 C)-98.7 F (37.1 C)] 98.1 F (36.7 C) Heart Rate: [56-83] 60 Respiratory Rate: [13-18] 18 BP: (105-154)/(60-109) 124/109 O2 Device: Room air at 100 % No intake or output data in the 24 hours ending 05/28/25 2304 LABS: CBC: (05/28/2025: 4:21 PM) WBC 19.4 \ Hgb 12.4 / Plt 200 / Hct 37.4 \ Results Review BMP: (05/28/2025: 4:21 PM) 138 105 23 Gluc 151 4.4 23 0.95 Mg PO4 Ca N/A N/A 8.8 (1.6-2.8) (2.5-4.8) (8.4-10) Baseline Weight 297 Admission Weight Weight: 297 lb (134.7 kg) Today's Weight Weight: 297 lb (134.7 kg) BMI 41.42 PHYSICAL EXAM: General: NAD. HEENT: EOMI. Conjunctiva clear. No scleral icterus. Heart: RRR. No murmurs or rub. Lungs: CTAB. Abdomen: Soft, tender at surgical sites, generalized redness, biopsy site under umbilicus Extremities: No LE edema. Neuro: No focal deficits. A&Ox3, sensation intact Skin: Warm & dry, generalized redness, raised, non-tender lesions involving > 50% of body IMAGING/OTHER: Chest x-ray was last done on 05/28/2025 Echocardiogram date: Not Found Chest x-ray (05/28/25) IMPRESSION: No acute radiographic abnormality identified Echocardiogram (05/28/25) - NSR, RRR, Normal axis deviation, no acute ST changes, unspecified T wave inversions, normal R wave progression, normal QTc CONSULTS: IP VISUAL ASSOCIATE SERVICE REQUEST ASSESSMENT AND PLAN: Delmis Mtz is a 65 year old female with a history of with a PMH of COPD, GERD, HTN, HLD, Endometrial cancer to ED for generalized pruritic rash that started on 05/24 days after starting Clindamycin abx ppx (05/19) s/p toe procedure and IV ancef for a hysterectomy (endometrial adenocarcinoma, 0 05/12/25). Per ED note, pt states the rash is non-tender/painful started in the lower back as small dots w/red raised rash that was spreading Centripetally to the torso and rest of body. PROBLEM LIST: Diffuse generalized non-pruritic rash 2/2 possible abx treatment, possible erythema multiforme, DRESS, tumor lysis syndrome - Pt recently prescribed clindamycin (05/19/25) for toe procedure, IV ancef s/p hysterectomy (05/12), ciprofloxacin for UTI, Leukocytoclastic vasculitis - Diffuse generalized maculopapular rash, non-tender, nikolsky -, no bullae, crepitus, discharge noted - Pt prescribed steroid injections x 2, refractory to benadryl, cortisone cream - Afebrile, leukocytosis possibly due to demargination - Elevated lactate possible due to extensive inflammatory response - Derm consulted, on board, pending recs - Clinically monitor for amount of skin involvement TEN > 30, SJS < 10% of overall skin involvement Plan - Ordered repeat HFTs to trend high values of AST/ALT/ALK phos. And hepatitis panel for transaminitis - Ordered BMP to reassess - Ordered CBC to trend WBC count to r/o infectious etiology, previous elevations possibly due to recent steroid usage, low threshold for abx usage - Ordered CK, if elevated suspicious for skin intracellular damage - Uric acid ordered for stage 1 adenocarcinoma malignancy of uterus, r/o Tumor lysis syndrome, low clinical suspicion at this time - Fluid resuscitation if pt is clinically deteriorating, Pt to remain PO for now, will assess for mucosal involvement with time - K+ appears normal at 4.4, maintain > 4 and replenish PRN, Na 138, glucose at 151, GFR 66, BUN/Cr 23/0.95 - Hold home lasix 40mg due to concern for dehydration UTI - Repeat UA ordered due to dysuria and recent ciprofloxacin usage for UTI HTN: - Pt took at homes meds today, will continue tomorrow dose of losartan 100 mg daily, 25 mg COREG HLD - Continue at home Lipitor 10 mg GERD - Continue at home Pantoprazole 40 mg Feeding NPO Analgesia Tylenol Sedation N/A VTE ppx Lovenox HOB Eval 30 Degrees Ulcer ppx On home Pantoprazole Glycemic Control Target 140-180 SBT N/A Bowel Regimen Miralax/Senna Indwelling N/A Drug De-Escalation D/c all antibiotic courses Dispo: Pending Code Status: Full Code This plan is preliminary until finalized by an attending physician. Yehuda Condon DO PGY-1 Internal Medicine Stepdown Unit Pager [phone] [1] History reviewed. No pertinent past medical history. [2] History reviewed. No pertinent surgical history. [3] No family history on file. [4] [5] No current facility-administered medications on file prior to encounter. No current outpatient medications on file prior to encounter. [6] Allergies Allergen Reactions Bactrim [Sulfamethoxazole W-Trimethoprim] Clindamycin Levaquin [Levofloxacin] Penicillins documented in this [id number] Consult note* Mayra Garza MD - 05/28/2025 5:39 PM EDT Dermatology Inpatient Consult Attending: Dr. Mann Date of Service: 05/28/2025 Referred by: No referring provider defined for this encounter. Clinical Question: diffuse eruption HPI Delmis Mtz is a 65 year old female with a PMHx significant for HTN, HLD, GERD who presented to [facility] with diffuse rash. Pt had hysterectomy for endometrial carcinoma on 05/12 for which she received IV Ancef and ingrown toenail podiatry procedure on 05/19 on which day she began taking clindamycin. Started develping rash on 05/24 and stopped clindamycin that night - she received steroid injections (unclear dose) on 05/26 and 05/27 and was started on prednisone taper - she did not notice improvement despite these. Pt notesshe has so far taken 50mg prednisone last night and 50mg this morning. Pt sent to [facility] today by outside certified professional midwife to r/o SJS. Rash is pruritic/burning but is not painful or tender. Pt does not have blisters or erosions. Does not note ocular, oral, or urogenital symptoms. PMHx/Shx/FHx Reviewed in [facility], significant as above ROS: As noted in HPI Physical Exam Vital sign ranges over the past 24 hours (retrieved 05/28/2025 at 5:39 PM): Tmax (24 hours): 98.7 F (37.1 C) Pulse Av Min: 73 Max: 73 Systolic (24hrs), Av , Min:105 , Max:105 Diastolic (24hrs), Av, Min:60, Max:60 No data recorded Resp Av Min: 18 Max: 18 SpO2 Av % Min: 98 % Max: 98 % General: resting in chair in NAD Face, neck, chest, abdomen, back, arms, legs, mouth examined, pertinent skin findings include: - Involving the trunk, neck, face, and extremities is an erythematous mildly edematous morbiliform eruption coalescing into a large confluent erythematous plaque on the trunk - some small pustules present on forearms. Faint erythematous macules present on palms - No oral erosions identified Pertinent Labs, imaging, and/or pathology: Reviewed in [facility], significant for: WBC 19.4 CRP 4.5 Assessment and Plan: 1. Diffuse morbiliform eruption: - ddx at this time includes AGEP (secondary to clindamycin) vs DRESS vs morbiliform drug eruption vs less likely SJS/EM, SSSS - recommended punch biopsy to aid in diagnosis, pt agreeable Punch Biopsy Procedure Note - Benefits, risks, and alternatives were discussed with the patient prior to procedure including infection, bleeding, or scarring. Verbal informed consent obtained from patient prior to procedure. - Site 1: left forearm - Site 2: central abdomen Time out was performed prior to procedure. Time Out: 6:15 PM Diagnosis, treatment, risks, benefits and treatment alternatives were discussed. Verbal consent obtained. Correct patient, correct procedure, and correct procedure site confirmed. - Area(a) prepared in standard sterile fashion. - Anesthesia with 1% lidocaine with epi 1:100,000. - Lesion(s) removed with 4 mm punch. - Site(s) closed with 4.0 vicryl rapide suture(s) x 2 - Complications: None. - Specimen(s) to path. - Sites dressed. Wound care instructions reviewed with patient. - Sutures are dissolvable and do not need removal. Recommendations: - add clindamycin to pt's allergy list - pt likely to need steroid taper course - given has already taken 50mg today, will determine dosage on evaluation tomorrow - f/u biopsy results, preliminary read likely Wednesday 05/30 - please add nursing communication order regarding biopsy site (left forearm, central abdomen) care: Daily care of bx site: Leave original dressing in place for about 24 hours. Starting tomorrow, start the following: Once daily, clean biopsy site with mild soap and water. If there is drainage from the biopsy site, it may need to be cleaned more frequently than once a day. After washing, pat the area dry. DO apply vaseline or aquaphor to the wound. Apply a new band-aid over the area. Time spent with the patient includes: 90 minutes Thank you for allowing us to participate in the care of this patient. This patient was seen and discussed with Dr. Garza, attending physician, who agrees with above assessment/plan unless otherwise stated. Consult received from and note shared with primary team. Tony Dupont MD Resident in Dermatology Teaching Physician Note: History: as noted Physical findings: as noted Medical Decision Making: as noted Bx results pustular drug/AGEP. Will start Pred taper I saw and evaluated the patient. I personally obtained the loredo and critical portions of the historyand physical exam. I reviewed the resident's documentation and discussed the patient with the resident. I agree with the resident's medical decision making as documented in the resident's note. I was personally present for the loredo portions of the procedure. Mayra Garza MD [facility] Work Phone: [phone] Emergency department Note* Latonya Norton EMR - 05/28/2025 3:[address] Ro CAMARENA notified of critical POTASSIUM value of 8.5 (HEMOLYZED). Hard copy of results given to Dr. Ro CAMARENA. AMINA Cosby [id number] Emergency department Note* aLtonya Norton, AMINA - 05/28/2025 3:[address] Ro CAMARENA notified of critical POTASSIUM value of 8.5 (HEMOLYZED). Hard copy of results given to Dr. Ro CAMARENA. Latonya Norton, AMINA * Heidi Kaur APRN-CNP - 05/28/2025 1:36 PM EDT Physician Triage Note The patient was seen by me in intake for a brief history and physical obtained for triage reasons only. My exam is intended to be an initial medical screening exam for disposition within our ED with limited initial orders placed, when appropriate, to expedite care by the treating team. HIPAA: Verbal permission granted from patient to discuss case, including protected health information, in front of family / friends in room at the time of the evaluation. Patient complains of rash secondary to clindamycin. Told might be Emma Sewell. Rash is head totoe and kraft and itchy. Focused Exam: NAD, diffuse red rash from head to toe. The patient is deemed appropriate for Acute. Initial orders: line, labs. The remainder of testing, treatment, and diagnostic plan will be assumed by the next clinician who will be seeing the patient as a primary patient, creating a plan and impression, and final disposition of the patient from the ED. I had a limited role in this case. PLEASE SEE OTHER ATTENDING/RESIDENT/PHYSICIAN/CUSTOMER OPERATIONS MANAGER/PA NOTATION ALEX House documented in this [id number] NotePhysician Triage Note The patient was seen by me in intake for a brief history and physical obtained for triage reasons only. My exam is intended to be an initial medical screening exam for disposition within our ED with limited initial orders placed, when appropriate, to expedite care by the treating team. HIPAA: Verbal permission granted from patient to discuss case, including protected health information, in front of family / friends in room at the time of the evaluation. Patient complains of rash secondary to clindamycin. Told might be Carter Donato. Rash is head to toe and kraft and itchy. Focused Exam: NAD, diffuse red rash from head to toe. The patient is deemed appropriate for Acute. Initial orders: line, labs. The remainder of testing, treatment, and diagnostic plan will be assumed by the next clinician who will be seeing the patient as a primary patient, creating a plan and impression, and final disposition of the patient from the ED. I had a limited role in this case. PLEASE SEE OTHER ATTENDING/RESIDENT/PHYSICIAN/CUSTOMER OPERATIONS MANAGER/PA NOTATION ALEX HouseThe [facility] [id number] Physician Emergency department Note* Heidi Kaur APRN-CNP - 05/28/2025 1:36 PM EDT Physician Triage Note The patient was seen by me in intake for a brief history and physical obtained for triage reasons only. My exam is intended to be an initial medical screening exam for disposition within our ED with limited initial orders placed, when appropriate, to expedite care by the treating team. HIPAA: Verbal permission granted from patient to discuss case, including protected health information, in front of family / friends in room at the time of the evaluation. Patient complains of rash secondary to clindamycin. Told might be Carter Donato. Rash is head totoe and kraft and itchy. Focused Exam: NAD, diffuse red rash from head to toe. The patient is deemed appropriate for Acute. Initial orders: line, labs. The remainder of testing, treatment, and diagnostic plan will be assumed by the next clinician who will be seeing the patient as a primary patient, creating a plan and impression, and final disposition of the patient from the ED. I had a limited role in this case. PLEASE SEE OTHER ATTENDING/RESIDENT/PHYSICIAN/CUSTOMER OPERATIONS MANAGER/PA NOTATION ALEX House [email or web address] Work Phone: [phone] History of Present illness Narrative* David A Felter, FIRE TECHNOLOGY INSTRUCTOR-CUSTOMER OPERATIONS MANAGER - 05/28/2025 10:40 AM EDT Images from the original note were not included. Rash Location: generalized; pt states that it feels like it's in her throat today Duration: 4 days (started on 05/24/25) Severity: moderate, severe Quality: itchy, kraft Modifying Factors: pt started oral clindamycin on 05/19/25; pt reports she was given this due to an operation on her toe and then stopped taking 05/25/25; pt also had a hysterectomy on 05/12/25 Associated symptoms: red Current treatments: 2 steroid shots (one on Monday one on Monday), prednisone 10 mg, cipro (for bladder infection) hydroxyzine; OTC cortisone cream and spray, OTC Benadryl New patient, referred by Dr. Iverson All pertinent medical history, medications, and allergies were reviewed. General Exam: alert, oriented to person, place, and time, normal affect, well appearing Accompanied by sibling A focused exam completed based on patient reported problems, see below: Skin Exam 1. RASH AND OTHER NONSPECIFIC SKIN ERUPTION Generalized SJS/TEN suspected from medication. Patient and sister educated on SJS and informed that this is a life threatening rash. Importance of evaluation and possible admittance to [facility] stressed. Instructed patient to go to [facility] at this time. [facility] notified of patient pending arrival. Next Visit: prn for any new/changing lesions documented in this encounterLee's Summit [id number] History of Present illness Narrative* CHACHA Velasquez - 05/27/2025 11:30 AM EDT Subjective: Delmis Mtz is a 65 y.o. female who is s/p a [id number] on 05/12/25. 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 She was prescribed an antibiotic following a foot surgery she hadlast week and developed a rash. This is covering most her body and is itchy. She is being seen by her PCP for the rash. Antibiotic has been stopped. Normal bowel and bladder habits. No fevers, chills, N/V, N/T, SOB, vaginal bleeding. Patient was originally a consultation from for evaluation and management of endometrial adenocarcinoma, high-grade. Oncology History No history exists. Delmis Mzt Denies Early satiety Denies Abdominal distention Denies Leg swelling Denies Shortness of breath Denies Vaginal bleeding Denies Change in bowel habits Denies Change in bladder habits Denies Nausea and vomiting All other systems negative, unless specifically noted in HPI. Past Gynecologic History: OB History No obstetric history on file. No LMP recorded. Patient has had an implant. Hormonal Contraceptives No HRT use No History of abnormal pap No Past Surgical History: Procedure Laterality Date DAVINCI ROBOTIC ASSISTED HYSTERECTOMY SALPINGO OOPHORECTOMY Bilateral 05/12/2025 Performed by Malachi Snow MD at [facility] DAVINCI ROBOTIC ASSISTED DISSECTION LYMPH NODE PELVIC SENTINEL Bilateral 05/12/2025 Performed by Malachi Snow MD at [facility] DILATION AND CURETTAGE OF UTERUS TONSILLECTOMY Past Medical History: Diagnosis Date Arthritis Cancer ([facility]) endometrial Cataract implants COPD (chronic obstructive pulmonary disease) ([facility]) GERD (gastroesophageal reflux disease) Hyperlipidemia Hypertension Obesity Visual impairment Family History Problem Relation Age of Onset Anesthesia problems Neg Hx Social History Socioeconomic History Marital status: Single Tobacco Use Smoking status: Former Current packs/day: 0.00 Average packs/day: 2.0 packs/day for 44.0 years (88.0 ttl pk-yrs) Types: Cigarettes Start date: 1971 Quit date: 2016 Years since quittin.5 Smokeless tobacco: Never Vaping Use Vaping status: Never Used Substance and Sexual Activity Alcohol use: Not Currently Drug use: Never Sexual activity: Defer Social Drivers of Health Food Insecurity: No Food Insecurity (05/08/2025) Hunger Screening Food Insecurity - Worry: Never True Food Insecurity - Inability: Never True Review of Symptoms: Pertinent items are noted in HPI. Objective: BP 97/51 Pulse 72 Temp 36.6 C (97.9 F) (Oral) Resp 16 Ht 181.6 cm (5' 11.5 ) Wt 133.6 kg (294 lb 9.6 oz) SpO2 99% BMI 40.52 kg/m ECO- Symptomatic; fully ambulatory General appearance: alert, appears stated age and cooperative Head: Normocephalic, without obvious abnormality, atraumatic Lungs: clear to auscultation bilaterally Heart: regular rate and rhythm, S1, S2 normal, no murmur, click, rub or gallop Abdomen: soft, nontender, incisions c/d/I without evidence of infection. Diffuse rash throughout the abdomen without focal erythema around incisions around sign of infection Pelvic:deferred to next visit Extremities: extremities normal, atraumatic, no cyanosis or edema Pulses: 2+ and symmetric Skin: extensive macular rash throughout neck, trunk, arms and legs Lymph nodes: Cervical, supraclavicular, and axillary nodes normal. Neurologic: Grossly normal Labs: Lab Results Component Value Date WBC 5.4 06/24/2020 HGB 13.1 06/24/2020 HCT 38.9 06/24/2020 MCV 88 06/24/2020 PLT 192 06/24/2020 Lab Results Component Value Date GLU 105 (H) 05/08/2025 CALCIUM 9.0 05/08/2025 SODIUM 141 05/08/2025 K 3.8 05/08/2025 CO2 30 05/08/2025 BUN 16 05/08/2025 CREATININE 0.92 05/08/2025 No results found for: CA125 Assessment: Patient is diagnosed with Patient Active Problem List Diagnosis Endometrial cancer (CMS-HCC) Pre-procedure lab exam Plan: Post op care - she is progressing well. We discussed the postop lifting and pelvic restrictions over the next several weeks. Follow-up in 4 weeks for vaginal cuff check. Stage IB Grade 1: Discussed surgical pathology results in detail today. Discussed her intermediate risk of recurrence and tumor board recommendations for vaginal cuff brachytherapy. We discussed thistreatment: Schedule, potential side effects, efficacy, location. We also discussed surveillance following radiation. She would like to think about radiation and get back with us if she decides to go forward with it. Rash, allergic dermatitis: Discussed following with PCP in dermatology. Also recommended ED if she develops any shortness of breath, weakness, fevers or new pain. *An evaluation and management service unrelated to the patient's post-op care was performed today (within the post operative period). *The patient has a documented plan of care to address pain. All questions were answered to the patient's satisfaction. She is agreeable to this plan of care. *This note was completed using a voice certified nutritionist system. Every effort was made to ensure accuracy. However, inadvertent computerized certified nutritionist errors may be present. Lindsay Rodriguez PA-C, RD, IF CHACHA Velasquez 05/27/25 1203 documented in this encounterKettering Health Dayton07-15-2025 Miscellaneous Notes* Tumor Conference Note - Shayna Gross PA-C - 05/27/2025 8:04 AM EDT Images from the original note were not included. Multidisciplinary Cancer Conference Center Note Patient Name: Delmis Mtz : 1960 Conference Type:[facility] Conference Date: 05/27/25 Patient's Care Team: Patient Care Team: Radha Iverson MD as PCP - General (Family Medicine) Yovani Valdez DO as Referring Physician (Obstetrics & Gynecology) Physicians in attendance: Edy Jackson Essel, [place] Site/Laterality/Histology: Uterus Patient Presentation: Patient initially presented to gynecology oncology for evaluation and management of endometrial adenocarcinoma, high grade. She had several episodes of PMB and underwent a D&C hscope which revealed the above diagnosis. On 05/02/[address] CAP which revealed no metastatic disease. On 05/12/35 patient underwent RA TLH BSO SLNB and final pathology is listed below. Cancer Staging Endometrial cancer (CMS-HCC) Staging form: Corpus Uteri - Carcinoma and Carcinosarcoma, AJCC 8th Edition and FIGO 2022 - Clinical stage from 05/12/2025: FIGO Stage IB (cT1b, cN0, cM0) - Unsigned Grade 1 (-) LVSI Recommendations: VCBT, MMR testing Based on the information discussed during the conference, the following should be considered: Additional Work-up: []CT Scan []PET []MRI []Chest X-ray []Tumor Marker: []Bone Scan []KUB []US []Mammogram []HPV []Endoscopy []EBUS []EUS [x]Pathology []Other: Trials Available: No For trial specifics or questions regarding trials, Please call Clinical Research at [phone] National Guidelines discussed (NCCN, AUA, NCI, etc): Yes, describe: NCCN Consults to consider: [] Surgery [] Plastics [] Hem/Onc [] Rad/Onc [] Physical RX [] Oncofertilty [] Physical Therapy/Rehab []Psychosocial Services [] Nutrition [] Genetics [] Palliative Care [] Other: Physician Moderator: Edy Date: 05/27/25 This summary of the conference discussion is based on information available during conference presentation Questions can be directed to the Cancer Registry: [phone] documented in this encounterSouthwestern Vermont Medical CenterCiteeCar [id number] Progress note* Tumor Conference Note - Shayna Gross PA-C - 05/27/2025 8:04 AM EDT Images from the original note were not included. Multidisciplinary Cancer Conference Center Note Patient Name: Delmis Mtz : 1960 Conference Type:[facility] Conference Date: 05/27/25 Patient's Care Team: Patient Care Team: Radha Iverson MD as PCP - General (Family Medicine) Yovani Valdez DO as Referring Physician (Obstetrics & Gynecology) Physicians in attendance: Edy Jackson, Pb [place] Site/Laterality/Histology: Uterus Patient Presentation: Patient initially presented to gynecology oncology for evaluation and management of endometrial adenocarcinoma, high grade. She had several episodes of PMB and underwent a D&C hscope which revealed the above diagnosis. On 05/02/[address] CAP which revealed no metastatic disease. On 05/12/35 patient underwent RA TLH BSO SLNB and final pathology is listed below. Cancer Staging Endometrial cancer (CMS-HCC) Staging form: Corpus Uteri - Carcinoma and Carcinosarcoma, AJCC 8th Edition and FIGO 2022 - Clinical stage from 05/12/2025: FIGO Stage IB (cT1b, cN0, cM0) - Unsigned Grade 1 (-) LVSI Recommendations: VCBT, MMR testing Based on the information discussed during the conference, the following should be considered: Additional Work-up: []CT Scan []PET []MRI []Chest X-ray []Tumor Marker: []Bone Scan []KUB []US []Mammogram []HPV []Endoscopy []EBUS []EUS [x]Pathology []Other: Trials Available: No For trial specifics or questions regarding trials, Please call Clinical Research at [phone] National Guidelines discussed (NCCN, AUA, NCI, etc): Yes, describe: NCCN Consults to consider: [] Surgery [] Plastics [] Hem/Onc [] Rad/Onc [] Physical RX [] Oncofertilty [] Physical Therapy/Rehab []Psychosocial Services [] Nutrition [] Genetics [] Palliative Care [] Other: Physician Moderator: Edy Date: 05/27/25 This summary of the conference discussion is based on information available during conference presentation Questions can be directed to the Cancer Registry: [phone] [employer] Work Phone: [phone] Miscellaneous Notes* Telephone Encounter - Barbara Victor CMA - 05/26/2025 10:46 AM EDT Patient let voicemail requesting pathology results. Emr Trainer called back and spoke to patient; informed her that Dr Snow has not left notes for us to share, but the provider at her appt tomorrow willbe able to answer her questions. Patient instructed radio script writer to leave the results on her voicemail atthe end of the office workday and promptly ended the call before radio script writer could respond. documented in this encounterSouthwestern [facility] CenterRet[facility] Telephone encounter Note* Telephone Encounter - Barbara Victor CMA - 05/26/2025 10:46 AM EDT Patient let voicemail requesting pathology results. Emr Trainer called back and spoke to patient; informed her that Dr Snow has not left notes for us to share, but the provider at her appt tomorrow willbe able to answer her questions. Patient instructed radio script writer to leave the results on her voicemail atthe end of the office workday and promptly ended the call before radio script writer could respond. [facility]07-07-2025 History of Present illness Narrative* Cuco Marin DPM FACFAS - 05/19/2025 7:30 AM EDT Images from the original note were not included. Patient Patient: Delmis Mtz : 1960 PCP: Radha Iverson MD SUBJECTIVE This is a 65 y.o. female presents today with a chief complaint of a painful ingrown toenail with associated soft tissue abscess left foot. The state the pain has been present for several weeks and has progressively worsened. They have attempted trimming the nail back to no avail. They have noticed erythema and drainage coming from the affected border of the nail. They have attempted soaking the nail and topical antibiotics to no avail. The patient rates the pain a scale from 1-10 as a 8 with 10 being the worst pain of their lives. The patient has been dealing with this issue for some time she has attempted joint the nail back to no avail. Allergies: Allergies Allergen Reactions Penicillins Past Medical History: Active Ambulatory Problems Diagnosis Date Noted Age-related nuclear cataract of both eyes 05/21/2024 Epiretinal membrane (ERM) of left eye 05/21/2024 Resolved Ambulatory Problems Diagnosis Date Noted No Resolved Ambulatory Problems Past Medical History: Diagnosis Date Arthritis HTN (hypertension) Hypercholesteremia Medications: Current Outpatient Medications: albuterol (2.5 MG/3ML) 0.083% nebulizer solution, Take by nebulization every 6 (six) hours if needed for wheezing., Disp: , Rfl: amLODIPine (Norvasc) 5 MG tablet, TAKE 1 TABLET BY MOUTH EVERY DAY FOR 30 DAYS, Disp: , Rfl: carvedilol (Coreg) 25 MG tablet, TAKE 1 TABLET BY MOUTH TWICE A DAY WITH FOOD FOR 90 DAYS, Disp: , Rfl: clindamycin (Cleocin) 300 MG capsule, Take 1 capsule (300 mg) by mouth in the morning and 1 capsule(300 mg) in the evening and 1 capsule (300 mg) before bedtime. Do all this for 10 days. TAKE 1 PILLP.O. T.I.D. FOR 10 DAYS., Disp: 30 capsule, Rfl: 0 CVS D3 125 MCG (5000 UT) capsule, TAKE 1 CAPSULE BY MOUTH ONCE A DAY DIRECTED, Disp: , Rfl: esomeprazole (NexIUM) [address] capsule, Take 20 mg by mouth in the morning. Take before meals. Do not open capsule.., Disp: , Rfl: furosemide (Lasix) 40 MG tablet, TAKE 1 TABLET BY MOUTH EVERY DAY FOR 90 DAYS, Disp: , Rfl: hyoscyamine (Levsin) 0.125 MG SL tablet, DISSOLVE 1 TABLET UNDER TONGUE BEFORE MEALS AND AT BEDTIMEAS NEEDED FOR ABDOMINAL PAIN, Disp: , Rfl: ibuprofen 600 MG tablet, every 8 (eight) hours., Disp: , Rfl: losartan (Cozaar) 100 MG tablet, 1 (one) time each day at the same time., Disp: , Rfl: potassium chloride CR (Klor-Con) 10 MEQ ER tablet, Take 10 mEq by mouth in the morning and 10 mEq before bedtime., Disp: , Rfl: simvastatin (Zocor) 20 MG tablet, Take 20 mg by mouth in the morning., Disp: , Rfl: Review of systems: Constitutional: Denies fever, chills, nausea, vomiting GI: Denies abdominal pain, cramping, loose stool, gastric ulcers Musculoskeletal: Denies low back pain, knee pain, systemic arthritis Neurologic: Denies burning, tingling, transient paralysis OBJECTIVE Physical Examination: DERM: Positive hair growth to b/l feet with good skin turgor noted. Negative openings in skin. The left great toe is incurvated and painful at the nail border. There is significant erythema and drainage with abscess formation noted. Pain on direct palpation of the incurvated border. Localized erythema circumferentially around the digit. There is no ascending cellulitis or lymphangitis noted. Significant drainage below the nail noted no ascending cellulitis VASC: DP /PT were palpable bilateral. Capillary refill time < 3 seconds Digits 1-5 bilateral NEURO: [place] 5.07 monofilament was intact B/L. Vibratory sensation was intact B/L Musculoskeletal: Muscle strength was +5 over 5 all intrinsic and extrinsic muscles tested. Radiographs: AP/MO/LAT: ASSESSMENT 1. Abscess, toe, left 2. Onychocryptosis 3. Pain in left toe(s) PLAN I Recommended incision and drainage of the infection of the digit. Consent forms were signed for the procedure today. The digit was anesthetized with 3 cc of 2% lidocaine plain. The digit was preppedand draped in the usual sterile manner. The offending nail border was freed proximally and at the nail bed. The nail was then split and removed in toto. The abscess was drained and copiously lavaged w ith normal sterile saline. Dressings consisted of Silvadene 4x4s and Coban. The patient was instructed to change the dressing daily. The patient on clindamycin 300 mg t.i.d. we will follow up with adriana 2 weeks for reassessment. CLIFFORD Sepulveda documented in this encounterLee's Summit [id number] Miscellaneous Notes* Telephone Encounter - Clary Aleman RN - 05/14/2025 4:37 PM EDT Patient called in with concerns of no bowel movement since 05/12. Patient states she had sx with Dr Snow in the afternoon on 05/12. She states + flatus. Denies fever, N/V, or severe abdominal pain. States incision sites look clean, dry, and intact. Patient states pain is well controlled and she is taking Senna BID. Advised patient to start taking Miralax or Milk of Magnesia daily with the Senna twice daily. Encouraged fluids and movement as tolerated and to call office back if still no BM by tomorrow afternoon. Patient verbalized understanding and agreeable to plan. documented in this [facility] Telephone encounter Note* Telephone Encounter - Clary Aleman RN - 05/14/2025 4:37 PM EDT Patient called in with concerns of no bowel movement since 05/12. Patient states she had sx with Dr Snow in the afternoon on 05/12. She states + flatus. Denies fever, N/V, or severe abdominal pain. States incision sites look clean, dry, and intact. Patient states pain is well controlled and she is taking Senna BID. Advised patient to start taking Miralax or Milk of Magnesia daily with the Senna twice daily. Encouraged fluids and movement as tolerated and to call office back if still no BM by tomorrow afternoon. Patient verbalized understanding and agreeable to plan. [facility]06-26-2025 Instructions* Patient Instructions* Estrella Norton RN - 05/08/2025 1:45 PM EDT Images from the original note were not included. Your surgery/procedure is scheduled at [facility] on May 12 at 1 pm Arrival Time 11 am. [facility] Address: [address] [place] [address], [address] [place] [address] in the Emergency Center Parking lot. Report to the front desk admin in the Emergency/Surgery Registration lobby of the hospital. Notify your SURGEON if you develop any illness such as a cold, cough, fever, sore throat, vomiting or are hospitalized between now and your surgery. Please call Pre-Admission Clinic at [phone] if you have any questions prior to surgery. For questions the morning of surgery, call the Pre-op Department at [phone]. Medication Instructions (Do not stop your medications without consulting the prescribing physician). Take the following medications the morning of surgery with a sip of water: Amlodipine, carvedilol and omeprazole. Diabetic or Weight loss medications: n/a Take inhalers as prescribed the morning of surgery. Due to the risk associated with these medications. If these medications are not held per instruction below, your surgery is at an increased risk for cancellation SGLT2 Medications- Hold 3 days prior to surgery: Jardiance, Empagliflozin, Farxiga, Dapagliflozin, Invokana, Canagliflozin, Trijardy, Synjardy GLP-1 Medications (Injection or Pill)- If taken daily hold day of surgery. If taken weekly, hold 1 week prior to surgery: Adlyxin, Byetta, Bydureon, Ozempic, Rybelsus,Trulicity, Victoza, Wegovy, Lixisenatide, Exenatide, Semaglutide, Dulaglutide, Liraglutide GIP/GLP-1(Injection or Pill)- If taken daily hold day of surgery. If taken weekly, hold 1 week prior to surgery: Aniceto . Blood thinners: Please contact your prescribing physician regarding a stop/hold date for these medications. Medications such as Coumadin, Heparin, Aspirin, Plavix, Eliquis, Pradaxa Diabetics: If you take insulin, contact your prescribing doctor for instructions on how to manage this the night before and the morning of surgery. Non-steriodal Anti-Inflammatory Drugs (NSAIDS)- Hold 3 days prior to surgery unless otherwise directed by your surgeon. Vitamins/Herbal Products: You may continue to take your prescribed vitamins such as potassium, iron, vitamin B, vitamin C, or multivitamin unless specifically instructed by your surgeon to hold. STOPtaking all herbal products/teas one week prior to your surgery. Marijuana: Stop marijuana 72 hours prior to surgery, stop CBD oil 48 hours prior to surgery. If you have been given bowel prep instructions by your surgeon, please call the surgeon's office with any questions about these instructions. What do I do the day of Surgery? Age 2 through adult - Stop all solids by midnight, You may have clear liquids up to 2 hours before surgery, unless otherwise instructed by your surgeon Clear liquids are: water, sports drinks such as Gatorade or G2, or apple juice. You may NOT have: tube feedings, dairy products, alcoholic beverages, orange juice, or any liquids with solids or pulp in it If applicable, shower again with CHG soap the morning of your surgery. What do I need to do to prepare for surgery? If you will be going home the same day as your surgery, arrange for an adult over [address] Riding in a bus or taxi by yourself is not permitted. You should not smoke or drink alcohol 24 hours before your surgery. Alcohol thins the blood and may cause bleeding problems during surgery Smoking increases the risk of breathing problems after surgery. It also increases your risk for infection, and may delay healing. Do not use lotions, creams, powders, perfume, make up, cologne or after-shaves day of surgery. Remove ALL jewelry including wedding rings, body piercings, hair extensions that contain metal, nail serbian, make-up, and contact lens. You may brush your teeth the morning of surgery, but do not swallow the water. Wear your dentures and partial plates to the hospital (no adhesive). Shower the night the before. If applicable, use the CHG (chlorhexidine gluconate) soap or wipes. Please place clean linens on your bed after showering. Do not allow your pets in your bed. Please be advised, [facility] has transitioned to a cashless payment system. What should I bring to the hospital? Eyeglass or contact lens case If you will be spending the night, please bring personal care items and leave them in the car untilyou are taken to your room after surgery. Leave ALL valuables at home. If any of these instructions conflict with those you recieved from the surgeon, please seek clarification from your surgeon's office. DEEP BREATHING EXERCISES This exercise helps promote good air exchange and helps to prevent pneumonia after surgery. Breathe in slowly and deeply through the nose. Hold your breath for a few seconds and then exhale slowly through the mouth. Repeat this three times and then cough. Coughing helps to clear your lungs. If you have had a surgery with an incision into your abdomen or chest, press gently against your incision with a pillow or a folded blanket when you cough. Please be aware - it may not be terry to cough following some types of surgeries involving the eyes,ears, sinuses and throat. Always follow your doctor's instructions. LEG EXERCISES These exercises help promote good circulation and help to prevent blood clots after surgery. Point your toes to the ceiling and then point them to the wall. Do this slowly about 15-20 times. You may also move your feet in circles. Do the exercise that is most comfortable for you. If you have had surgery involving your shoulder or arm, we recommend you move your fingers. PRACTICING We ask that you begin practicing these exercises before your surgery. After surgery try to do both exercises at least every 2 hours during the day and early evening. Surgical Site Infection Prevention What is a Surgical Site Infection (SSI)? Infection can happen to the area of the body where surgery is done. This is called a surgical site infection (SSI). A SSI does not happen very often. What are some of the things that hospitals are doing to prevent SSIs? Soap and water or alcohol hand rub are used before and after caring for each patient. Special soap is used to clean surgery workers hands and arms just before the surgery. Masks, gowns, gloves and hair covers are worn during the surgery to keep the area clean. Hair in the surgery area may be removed with clippers (not razors). A special soap that kills germs is used to clean the skin at the surgery site. Antibiotics may be given before the surgery starts. What can you do to prevent SSIs? Before surgery: You may be asked to shower or bathe with a special soap that kills germs the night before and the day of surgery. Use the soap as you were told. Place clean sheets on your bed the night before surgery and do not allow your pets in your bed. If you smoke or vape, stop or cut down. This creates a stress response in your body that increases inflammation, constricts blood vessels and deprives your tissues of oxygen. After surgery, this stress response disrupts the travel of oxygen, nutrients, and blood to your surgical site, interfering with the wound healing process. It also decreases the ability of your cells to fight infection. Ask your doctor about ways to quit. If you have high blood sugars or diabetes please talk with your doctor about having healthy blood sugar levels to promote healing. Do not shave near where you will have surgery. Shaving can irritate the skin and make it easier to get and infection. After surgery: Be sure that the doctors and nurses clean their hands before and after touching you. Be sure your family and friends clean their hands before and after visiting you. Do not be afraid to remind them. Always wash your hands before touching your incisional area. * Care for your wound at home as told by your doctor or nurse * Call your doctor right away if you have fever, redness, increased pain, or drainage at the surgery site. Can SSIs be treated? Antibiotics are used to treat SSI. Some patients may need another surgery to treat the infection. The doctor will discuss treatment options with you. Further questions? Contact the doctor, nurse or the Infection Prevention and Control department if you have any questions. PATIENT RIGHTS AND RESPONSIBILITIES As a patient at [facility], you have the right to: Receive medical care and be informed of who is taking care of you Be treated with dignity and respect Have a family member/rental sales representative of choice and your physician notified of your admission Receive information and actively participate in decisions about your care and treatment Refuse care, treatment and services Decide who may provide your support and speak for you Access sikhism and spiritual services Participate in ethical issues and questions about your care Receive private and confidential care Have appropriate assessment and management of your pain Know guest visitation restrictions or limitations Have an advance directive Access protective services Consent or refuse to participate in research studies or production or recordings, films or other images Have resolution of your complaints Receive information of hospital charges and payment methods Patient/patient rental sales representative responsibilities are to: Provide information about health status to facilitate care, treatment and services Follow the treatment, plan, keep appointments and speak up when you do not understand the plan Respect the rights of other patients and healthcare personnel Follow organizational rules and regulations that support quality care and a safe environment Fulfill financial obligations as promptly as possible Full Body Surgical Prep Instructions Night Before Surgery Cleaning the skin before surgery can lower the risk of infection at the surgical site. This sheet will tell you how to use the clothes that have a rinse-free, 2% Chlorhexidine Gluconate (CHG) soap onthem. Follow the steps below very carefully Important Information: Do not use if allergic to CHG Do not shave your surgical area (or near the area) for 3 days before surgery. Shower (or bathe) and shampoo your hair with regular soap and shampoo at least one hour before you use the CHG cloths to clean your skin. Be sure your skin is completely dry and cool. Clean your skin with the CHG cloths the night before surgery at your home. Do not rinse off the CHG CHG may cause skin to itch or get red for a short time. If you have itching or redness that does not go away, rinse the areas and stop using the CHG clothes. Do not shower the morning of surgery. You may shampoo your hair at a sink. Directions: 1. Remove the plastic wrap. There are 6 wipes in the package. 2. Do not let the CHG get in your eyes, ears, mouth. Do not use on open skin wounds (cuts, scrapes,sores). 3. Wipe your body in a back and forth motion using all six (6) cloths. Use each cloth for 30 seconds while using a firm massage . Cloth # 1 - Wipe your neck, shoulders, chest. The area above the jawline can be washed with soap and water. Do not allow soap and water to go below the jawline. Soap can inactivate the CHG. Cloth # 2 - Wipe both arms and hands, starting each with the shoulder and ending at fingertips. Be sure to wipe the arm pit areas. Cloth # 3 - Wipe your abdomen and groin. Be sure to wipe folds in belly and groin areas. Cloth # 4 - Wipe right leg and right foot, starting at the thigh and ending at the toes. Be sure towipe behind your knees. Cloth # 5 - Wipe left leg and left foot, starting at the thigh and ending at the toes. Be sure to wipe behind your knees. Cloth # 6 - Wipe your back starting at the base of your neck and ending at your buttocks. Cover as much area as possible. You may need help from someone. Allow area to air dry for one minute and do not rinse. It is normal for the skin to have a sticky feel for a few minutes after you use the cloths. Do not apply any lotion. Do not shower after you use the cloths. Dress in clean pajamas at night and wear clean clothes the morning of surgery. Place freshly laundered sheets on your bed after using the wipes Do not allow pets in your bed documented in this encounterKettering [facility]06-18-2025 History of Present illness Narrative* Malachi Snow MD - 04/30/2025 3:00 PM EDT Subjective: Delmis is a 65 y.o. female [...] Patient Active Problem List Diagnosis Endometrial cancer ([facility]-H[facility]) Pre-procedure lab exam Plan: 1. The [...] procedures Referring and communicating with other health emergency care attendant (not separately reported) Documenting clinical information in the electronic or other health record Malachi Snow MD documented in this encounterHolzer HospitalWind Energy Solutions [id number] History of Present illness Narrative* CHACHA Alcantara - 04/21/2025 1:20 PM EDT Reason for Appointment: Patient ID: Delmis Mtz [...] nursing note reviewed. Exam conducted with a general labor present. Vitals: Estimated body mass index is 37.6 kg/m as calculated from the following: Height as of 07/04/23: 6' 1 . Weight as of this encounter: 285 lb. BP: 122/76 No LMP recorded. ASSESSMENT & PLAN ICD-10-CM 1. Postoperative examination Z09 Post Op Follow Up: Patient presents today for a postop follow up after having a D&C Hysteroscopy performed at [facility] with Dr. Valdez. Pathology results was reviewed with the patient in great detail and all restrictions have been lifted. Patient has referral appointment scheduled for DR Bautista on 04/30/25, due to adenocarncima of the endometrium. Follow Up: Patient is to return to the office for annual exam unless needed otherwise. Documented by CHACHA Alcantara on behalf of: CHACHA Alcantara documented in this encounterLee's Summit [id number] History of Present illness Narrative* Rubi Cabrera, RUI - 03/18/2025 2:40 PM EDT Reason for Appointment: Patient ID: Delmis Mtz is a 64 y.o. female who presents for Pre-op Visit Patient presents today for Pre Op appointment. Patient is scheduled to undergo D&C Hysteroscopy, possible Myosure on 04/11/[address] Valdez at [facility]. MEDICATIONS Current Outpatient Medications Medication [...] nursing note reviewed. Exam conducted with a general labor present. Vitals: Estimated body mass index is [...] reviewed, and patient is to proceed to [facility] OR. Follow Up: Patient is to follow up between 1-2 weeks post operative to assess proper healing and recovery fromprocedure. Documented by Dina Dawson LPN on behalf of: Yovani Valdez DO documented in this encounterLee's Summit [id number] History of Present illness Narrative* Rubi Cabrera LPN - 02/27/2025 10:00 AM EDT Reason for Appointment: Patient ID: Delmis Mtz [...] nursing note reviewed. Exam conducted with a general labor present. Vitals: Estimated body mass index is [...] by Rubi Cabrera LPN on behalf of: Yovani Valdez DO documented in [facility]BR[facility]* Diagnosis Age-related nuclear cataract of both eyes documented in this encounter [facility] HealthcareEvaluation note* Diagnosis Postmenopausal bleeding documented in this encounter [facility] HealthcareEvaluation note* Diagnosis Pre-op examination Postmenopausal bleeding Thickened endometrium Nonspecific (abnormal) findings on radiological and other examination of genitourinary organs documented in this encounter [facility] HealthcareEvaluation note* Diagnosis Postoperative examination Follow-up examination, following unspecified surgery documented in this encounter [facility] HealthcareEvaluation note* Diagnosis Endometrial cancer (CMS-HCC)- Primary Malignant neoplasm of corpus uteri, except isthmus Pre-procedure lab exam Pre-procedural laboratory examination documented in this encounter [facility] SystemEvaluation [facility]* Diagnosis Endometrial cancer (CMS-HCC)- Primary Malignant neoplasm of corpus uteri, except isthmus Preop testing Unspecified pre-operative examination [facility] Diagnosis Pre-op testing- Primary Unspecified pre-operative examination Endometrial cancer (CMS-HCC) Malignant neoplasm of corpus uteri, except isthmus Preop testing Unspecified pre-operative examination documented in this [facility] Diagnosis Onychocryptosis- Primary Ingrowing nail Abscess, toe, left Pain in left toe(s) documented in this encounter [facility] HealthcareEvaluation note* Diagnosis Endometrial cancer (CMS-HCC)- Primary Malignant neoplasm of corpus uteri, except isthmus Encounter for postoperative care documented in this encounter [facility] SystemEvaluation [facility]* Diagnosis Rash and other nonspecific skin eruption- Primary [facility] Diagnosis Rash and nonspecific skin eruption- Primary Rash and other nonspecific skin eruption Rash and nonspecific skin eruption Rash and other nonspecific skin eruption Adverse effect of drug, initial encounter Abnormal electrocardiogram (ECG) (EKG) BRIAN (obstructive sleep apnea) Obstructive sleep apnea (adult) (pediatric) BRIAN (obstructive sleep apnea) Obstructive sleep apnea (adult) (pediatric) [facility] Diagnosis Abscess, toe, left- Primary Onychocryptosis Ingrowing nail documented [facility]* Diagnosis Encounter for postoperative care- Primary documented in this encounter [facility] SystemEvaluation note* Diagnosis Other specified disorders of synovium, left ankle and foot- Primary Pain due to onychomycosis of toenails of both feet documented in this encounter [facility] HealthcareHistory of Present illness Narrative* Liborio Miranda, DPM - 09/04/2025 1:40 PM EDT Patient: Delmis Pelletier Drake : 1960 PCP: Radha Iverson MD SUBJECTIVE This is a 65 y.o. female that presents today with a CC of elongated, thick nails. Pt states nails have been elongated and thick for many years and cause pain with ambulation in shoegear. Pt has tried previous treatment with minimal relief. Pt presents today for nail care and treatment. Patient also has pes planovalgus with posterior tibial tendon dysfunction and occasional ankle painto left ankle and states she has a [place] type brace but does not wear it continuously but has relief when wearing brace Allergies: Allergies[1] Past Medical History: Medical History[2] Medications: Current Medications[3] Social History: Social History Socioeconomic History Marital status: Unmarried Spouse name: Not on file Number of children: Not on file Years of education: Not on file Highest education level: Not on file Occupational History Not on file Tobacco Use Smoking status: Former Types: Cigarettes Smokeless tobacco: Never Substance and Sexual Activity Alcohol use: Never Drug use: Never Sexual activity: Not on file Other Topics Concern Not on file Social History Narrative Not on file Social Drivers of Health Financial Resource Strain: Not on file Food Insecurity: Unknown (05/28/2025) Received from [facility] Hunger Vital Sign Within the past 12 months, you worried that your food would run out before you got the money to buymore.: Never true Ran Out of Food in the Last Year: Not on file Transportation Needs: Unknown (05/28/2025) Received from [email or web address] PRAPARE - Transportation Lack of Transportation (Medical): No Lack of Transportation (Non-Medical): Not on file Physical Activity: Not on file Stress: Not on file Social Connections: Not on file Intimate Partner Violence: Unknown (05/28/2025) [facility] Humiliation, Afraid, Rape, and Kick questionnaire Fear of Current or Ex-Partner: Not on file Within the last year, have you been humiliated or emotionally abused in other ways by your partner or ex-partner?: No Physically Abused: Not on file Sexually Abused: Not on file Housing Stability: Unknown (05/28/2025) [facility] Stability Vital Sign In the last 12 months, was there a time when you were not able to pay the mortgage or rent on time?: No Number of Times Moved in the Last Year: Not on file Homeless in the Last Year: Not on file ROS: General: denies fever, chills, fatigue, malaise OBJECTIVE LE EXAM: DERM: Elongated thick yellow crumbly nails digits 1 through 10. Positive hair growth b/l feet. VASC: Positive palpable pedal pulses bilaterally NEURO: Gross sensation intact to bilateral feet ORTHO: Positive pain on palpation to toenails of the left 1,2,3,4,5 toes and right 1,2,3,4,5 toes Notable loss of medial longitudinal arch to left foot and minimal pain onpalpation to medial left ankle gutter and capsule ASSESSMENT 1. Other specified disorders of synovium, left ankle and foot 2. Pain due to onychomycosis of toenails of both feet PLAN Discussed proper foot care with patient today. Debride nails in length and thickness digits 1 through 10 Patient encouraged to wear [place] brace to the ankle of concern and if has any problems with pain to the ankle to contact Podiatry or possible steroid injections in future Liborio Miranda DPM [1] Allergies Allergen Reactions Penicillins [2] Past Medical History: Diagnosis Date Arthritis HTN (hypertension) Hypercholesteremia [3] Current Outpatient Medications: albuterol (2.5 MG/3ML) 0.083% nebulizer solution, Take by nebulization every 6 (six) hours if needed for wheezing, Disp: , Rfl: amLODIPine (Norvasc) 5 MG tablet, , Disp: , Rfl: carvedilol (Coreg) 25 MG tablet, , Disp: , Rfl: CVS D3 125 MCG (5000 UT) capsule, , Disp: , Rfl: esomeprazole (NexIUM) [address] capsule, Take 20 mg by mouth in the morning. Take before meals. Do not open capsule., Disp: , Rfl: furosemide (Lasix) 40 MG tablet, , Disp: , Rfl: hyoscyamine (Levsin) 0.125 MG SL tablet, , Disp: , Rfl: ibuprofen 600 MG tablet, every 8 (eight) hours, Disp: , Rfl: losartan (Cozaar) 100 MG tablet, 1 (one) time each day at the same time, Disp: , Rfl: potassium chloride CR (Klor-Con) 10 MEQ ER tablet, Take 10 mEq by mouth in the morning and 10 mEq before bedtime., Disp: , Rfl: simvastatin (Zocor) 20 MG tablet, Take 20 mg by mouth Daily, Disp: , Rfl: [facility] Narrative No data available for this section [facility] Discharge instructions No data available for this section [facility] [place] InstructionsNot on filedocumented in this encounter [facility] filedocumented in this encounter [facility] on filedocumented in this encounter [facility] on filedocumented in this encounter [facility] on filedocumented in this encounter [facility] on filedocumented in this encounter [facility]Not on filedocumented in this encounter [facility] No data available for this section [facility] Summary Purpose Family History No Family History Records FoundNo Family History Records FoundNo Family History Records FoundNo Family History Records FoundNo Family History Records FoundNo Family History Records FoundNo Family History Records Found No data available for this section Advance Directives Date ActivatedDate InactivatedComments05/28/2025 9:56 PMQuestionAnswerComments Documentation of decision process for this code status:* Patient and surrogate unable or unavailable to discuss. Defaulting to the previously documented code status. Date ActivatedDate InactivatedComments05/28/2025 9:56 PM05/29/2025 6:16 PMQuestion AnswerCommentsDocumentation of decision process for this code status:* Patient and surrogate unable or unavailable to discuss. Defaulting to the previously documented code status. Additional Source Comments INFORMATION SOURCE (unrecogn ized section and content) DATE CREATED AUTHOR 06/19/2022 [facility] DATE CREATED AUTHOR AUTHOR'S ORGANIZ ATION 05/28/2025 [facility] DATE CREATED AUTHOR AUTHOR'S ORGANIZ ATION 06/01/2025 [facility] DATE CREATED AUTHOR AUTHOR'S ORGANIZ ATION 06/03/2025 [facility] DATE CREATED AUTHOR AUTHOR'S ORGANIZ ATION 06/30/2025 [facility] DATE CREATED AUTHOR AUTHOR'S ORGANIZ ATION 09/06/2025 [facility] DATE CREATED AUTHOR AUTHOR'S ORGANIZ ATION 09/13/2025 [facility] Reason for Visit (unrecogniz ed section and content) ReasonCommentsMed RefillReasonCommentsPMBReasonCommentsPre-op VisitReason CommentsPost-op VisitReasonCommentsNew PatientSpecialtyDiagnoses / Procedures Referred By ContactReferred To ContactOncology / Gynecologic Oncology Diagnoses Endometrial cancer ([facility]) [facility] Gynecology Oncology, A Department of [facility] [address] [place] [address] Phone: tel: fax: [facility] Gynecology Oncology, A Department of [facility] [address] [address] Phone: tel: fax: Referral IDStatusReasonStart DateExpiration DateVisits RequestedVisits [id number] Review Specialty Services Required [id number]-bwOryqciNtuzjbqzNilvVvpxezQsktjzmn Generalized redness/erythema/rashStarted clindamycin on 05/19. Rash all over body Monday morning. Stopped clindamycin Monday night. Saw doctor on Monday & received cortisone shot Monday & Monday. Monday started prednisone. Seen certified professional midwife at [facility] in [place] today & sent here for rustam sewellSpecialty Diagnoses / ProceduresReferred By ContactReferred To ContactEmergency Medicine Diagnoses Rash and other nonspecific skin eruption Procedures NA [employer] [address] Phone: tel: [place] [address] Phone: tel: Referral IDStatusReasonStart DateExpiration DateVisits RequestedVisits [id number] DateCommentsPrescription Genywzzjbbirf83/17/2025 ReasonCommentsFollow-up2 week avulsion follow upReasonCommentsToenail Care Care Teams (unrecognized sec tion and content) Personnel Name: Radha Iverson MD Address: [address] [place] [address] Telecom: Team MemberRelationshipSpecialtyStart [place] [address] [place] [phone] PCP - GeneralFamily Medicine07/04/23 Berta Lovelace MD [address] [place] [address] Referring PhysicianOptometry05/21/24Team MemberRelationshipSpecialtyStart DateEnd Date Radha Iverson MD [address] [facility] [place] [address] PCP - GeneralFamily Medicine07/04/23 Berta Rivero OD [address] [facility] [place] [address] Referring PhysicianOptometry05/21/24Team MemberRelationshipSpecialtyStart DateEnd Date Radha Iverson MD [address] [facility] [place] [address] PCP - GeneralFamily Medicine07/04/23 Berta Rivero OD [address] [facility] [place] [address] Referring PhysicianOptometry05/21/24Team MemberRelationshipSpecialtyStart DateEnd Date Radha Iverson MD [address] [facility] [place] [address] PCP - GeneralFamily Medicine07/04/23 Berta Rivero OD [address] [facility] [place] [address] Referring PhysicianOptometry05/21/24Team MemberRelationshipSpecialtyStart DateEnd Date Radha Iverson MD [address] [facility] [place] [address] PCP - GeneralFamily Medicine07/04/23 Berta Rivero OD [address] [facility] [place] [address] Referring PhysicianOptometry05/21/24Team MemberRelationshipSpecialtyStart DateEnd Date Radha Iverson MD PCP - Generalmily Medicine06/24/20Team MemberRelationshipSpecialtyStart DateEnd Date Radha Iverson MD PCP - Generalmily Medicine06/24/20Team MemberRelationshipSpecialtyStart DateEnd Date Radha Iverson MD PCP - Generalmily Medicine06/24/20Team MemberRelationshipSpecialtyStart DateEnd Date Radha Iverson MD PCP - Generalmi Medicine06/24/20Team MemberRelationshipSpecialtyStart DateEnd Date Radha Iverson MD [facility] - [facility]06/24/20Team MemberRelationshipSpecialtyStart DateEnd Date Radha Iverson MD [address] [place] [address] [facility] - [facility] Medicine07/04/23 Berta Rivero OD [address] [place] [address] Referring PhysicianOptometry05/21/24Team MemberRelationshipSpecialtyStart DateEnd Radha Iverson MD [address] [place] [address] PCP - GeneralFamily Medicine07/04/23 Berta Rivero, OD [address] [place] [address] Referring PhysicianOptometry05/21/24Te MemberRelationshipSpecialtyStart DateEnd Radha Iverson MD [facility] - [facility]06/24/20Team MemberRelationshipSpecialtyStart DateEnd Date Radha Iverson MD [address] [place] [address] PCP - [facility] Medicine07/04/23 Berta Rivero OD [address] [place] [address] Referring PhysicianOptometry05/21/24Te MemberRelationshipSpecialtyStart DateEnd Radha Iverson MD PCP - [facility] Medicine06/24/20 Scheduled Active and Recently Administ ered Medications (unrecognized section and content) Medication Order// atorvastatin (LIPITOR) tablet 10 mg, Oral, AT BEDTIME, First dose on Mon05/29/25 at 0000, Until Discontinued * 2358 (Given - Provider: Brianne Blair RN) * 2200 (Due) CARvedilol (COREG) tablet (CANCELED) 25 mg, Oral, 2 TIMES DAILY, First dose on Mon05/29/25 at 0000, Until Discontinued * 2358 (Given - Provider: Brianne Blair RN) * 1257 (Hold/Not Given - Provider: Silvina Olsen RN - Reason: Physician order) CARvedilol (COREG) tablet 12.5 mg, Oral, 2 TIMES DAILY, First dose (after last modification) on Mon05/29/25 at 1330, Until Discontinued * 1300 (Given - Provider: Silvina Olsen RN) * 2100 (Due) diphenhydrAMINE (BENADRYL) capsule (COMPLETED) 25 mg, Oral, Once, 1 dose, On Mon05/28/25 at 1410 * 1356 (Given - Provider: Ro Camp RN) enoxaparin (LOVENOX) 40 MG/0.4ML injection 40 mg 40 mg, Subcutaneous, 2 times daily, First dose on Mon05/28/25 at 2230, Until Discontinued * 2240 (Given - Provider: Brianne Blair RN) * 0919 (Given - Provider: Silvina Olsen RN) * 2100 (Due) losartan (COZAAR) tablet 100 mg, Oral, DAILY, First dose on Mon05/29/25 at 0900, Until Discontinued * 0918 (Given - Provider: Silvina Olsen RN) pantoprazole (PROTONIX) tablet 40 mg, Oral, DAILY 30 MIN BEFORE BREAKFAST, First dose on Mon05/29/25 at 0830, Until Discontinued * 0918 (Given - Provider: Silvina Olsen RN) polyethylene glycol (MIRALAX) 17 g packet 17 g, Oral, DAILY, First dose on Mon05/28/25 at 2226, Until Discontinued * 2232 (Hold/Not Given - Provider: Brianne Blair RN - Reason: Patient refused) * 0917 (Given - Provider: Silvina Olsen RN) predniSONE (DELTASONE) tablet (CANCELED) 60 mg, Oral, DAILY, First dose on Mon05/29/25 at 1030, Until Discontinued * 1108 (Given - Provider: Silvina Olsen RN) predniSONE (DELTASONE) tablet(Linked Group 1) 60 mg, Oral, DAILY, 4 doses, First dose (after last modification) on Mon05/30/25 at 0900, Last doseon Mon06/02/25 at 0900 predniSONE (DELTASONE) tablet(Linked Group 1) 40 mg, Oral, DAILY, 5 doses, First dose on Tu06/03/25 at 0900, Last dose on 06/07/25 at 0900 predniSONE (DELTASONE) tablet(Linked Group 1) 20 mg, Oral, DAILY, 5 doses, First dose on Mon06/08/25 at 0900, Last dose on Mon06/12/25 at 0900 predniSONE (DELTASONE) tablet(Linked Group 1) 10 mg, Oral, DAILY, 5 doses, First dose on Mon06/13/25 at 0900, Last dose on Mon06/17/25 at 0900 senna (SENOKOT) tablet 8.6 mg, Oral, DAILY, First dose on Mon05/28/25 at 2226, Until Discontinued * 2232 (Hold/Not Given - Provider: Brianne Blair RN - Reason: Patient refused) * 0918 (Given - Provider: Silvina Olsen RN) triamcinolone 0.1 % cream Topical, 2 TIMES DAILY, First dose on Mon05/29/25 at 1030, Until Discontinued * 1109 (Given - Provider: Silvina Olsen RN) * 2100 (Due) Medication Order// acetaminophen (TYLENOL) tablet 650 mg, Oral, EVERY 4 HOURS PRN, Starting on Mon05/28/25 at 2154, Until Discontinued, Mild Pain (pain score 1,2,3) Order Group 1: predniSONE (DELTASONE) tabletJump to med 60 mg, Oral, DAILY, 4 doses, First dose (after last modification) on Mon05/30/25 at 0900, Last doseon Mon06/02/25 at 0900 Followed by predniSONE (DELTASONE) tabletJump to med 40 mg, Oral, DAILY, 5 doses, First dose on Mon06/03/25 at 0900, Last dose on Mon06/07/25 at 0900 Followed by predniSONE (DELTASONE) tabletJump to med 20 mg, Oral, DAILY, 5 doses, First dose on Mon06/08/25 at 0900, Last dose on Mon06/12/25 at 0900 Followed by predniSONE (DELTASONE) tabletJump to med 10 mg, Oral, DAILY, 5 doses, First dose on Mon06/13/25 at 0900, Last dose on Mon06/17/25 at 0900 FOR RECORDS PERTAINING TO PATIENTS WHO ARE [...] BE BASED ON THE PRIMARY CLINICAL RECORDS. [facility]. provides no warranty or guarantee of the accuracy or completeness of information in this document.
--- OUTSIDE RECORDS SUMMARY | 2025-09-19 07:16 | XMS_ITS | Clinical Summary ---
Author Organization [facility] Address [address] [place] [address] Care Team Providers Care Site Foreman Name Role Phone Andres Lentz MD Primary Care Provider [phone] Mat, Berta OD Unavailable Allergies Active AllergyReactionsCriticalityNoted RtnwHdugnfckGrfnuzvitiv31/17/2025 Medications MedicationSigDispense QuantityRefillsLast FilledStart DateEnd DateStatus losartan (Cozaar) 100 MG tablet 1 (one) time each day at the same timeActive potassium chloride CR (Klor-Con) 10 MEQ ER tablet Take 10 mEq by mouth in the morning and 10 mEq before bedtime.05/31/2023ctive simvastatin (Zocor) 20 MG tablet Take 20 mg by mouth Daily04/13/2023ctive ibuprofen 600 MG tablet every 8 (eight) hoursActive furosemide (Lasix) 40 MG tablet 04/13/2023ctive CVS D3 125 MCG (5000 UT) capsule 04/13/2023ctive amLODIPine (Norvasc) 5 MG tablet 05/24/2023ctive albuterol (2.5 MG/3ML) 0.083% nebulizer solution Take by nebulization every 6 (six) hours if needed for wheezingActive esomeprazole (NexIUM) [address] capsule Take 20 mg by mouth in the morning. Take before meals. Do not open capsule. Active hyoscyamine (Levsin) 0.125 MG SL tablet 02/20/2024ctive carvedilol (Coreg) 25 MG tablet 04/11/2024ctive Active Problems ProblemNoted DateDiagnosed DateAge-related nuclear cataract of both eyes 05/21/2024Epiretinal membrane (ERM) of left eye05/21/2024 Encounters DateTypeDepartmentCare EtfnTyuuddwhqwm61/23/2025 1:40 PM EDTProcedure Visit [facility] [address] [facility] [address] [place] [id number] Liborio Bagley DPM Other specified disorders of synovium, left ankle and foot (Primary Dx); Pain due to onychomycosis of toenails of both feet09/04/2025amboo flowsheet [facility] [address] [facility] [address] [place] [address] Liborio Bagley DPM 09/04/2025Travelfrom Last 3 Months Family History Medical HistoryRelationNameCommentsCancerOtherDiabetesSiblingHeart disease SiblingRelationNameStatusCommentsOtherSiblingAlive Social History Tobacco UseTypesPacks/DayYears UsedDateSmoking Tobacco: FormerCigarettes Smokeless Tobacco: Never Tobacco Cessation:Counseling Given: Yes Alcohol UseStandard Drinks/WeekCommentsNever0 (1 standard drink = 0.6 oz pure alcohol)CommentsUnknownSex and Gender InformationValueDate RecordedSex Assigned at BirthNot on fileLegal TstQruhzi25/08/2023 4:55 PM EDTGender Identity Not on fileSexual OrientationNot on file Last Filed Vital Signs Vital SignReadingTime TakenCommentsBlood Vquazhhf690/7707 7:55 AM EDT Wwlpl3083 7:55 AM EDTTemperature--Respiratory Vyav3529 1:24 PM EDTOxygen Saturation--Inhaled Oxygen Concentration--Xzuskk070 kg (286 lb) 09/04/2025 1:24 PM THZKvaiac697.3 cm (5' 11 )09/04/2025 1:24 PM EDTBody Mass Index39.8909/04/2025 1:24 PM EDT Plan of Treatment DateTypeDepartmentCare Team (Latest Contact Info)Clpnqrxobdq53/22/2026 1:20 PM ESTProcedure Visit [facility] [address] [facility] [address] [place] [id number] Liborio Bagley DPM [address] [facility] [address] [place] [address] Health MaintenanceDue DateLast DoneCommentsCT Oltswtqblari1960Colonoscopy 1960Colorectal Cancer Pfkwbijea1958FIT-DNA1958FIT1960 FOBT1960 2550Qydvytmrugpiy59/08/2716Vdgunzclu75/08/1998Pneumococcal Vaccine: 65+ Years (1 of 1 - PCV)2008COVID-19 Vaccine (3 - 2024- season) /06/2022, 10/30/2021Influenza Vaccine (#1) Insurance * Guarantor: Naz Juan TypeRelation to PatientDate of PhoneBilling AddressPersonal/OykcedOonz1960 [phone] [place] [address] [address] [place] [address] [place] [address] Care Teams Team MemberRelationshipSpecialtyStart Date Andres Lentz MD [address] [facility] [place] [address] PCP - GeneralFamily Medicine07/04/23 Berta Rivero OD [address] [place] [address] Referring PhysicianOptometry05/21/24
--- OUTSIDE RECORDS SUMMARY | 2025-09-19 07:16 | XMS_ITS | Clinical Summary ---
Author Organization [facility] Address [address] [facility] [place] [address] Care Team Providers Care Coloring Room Worker Name Role Phone Unavailable Primary Care Provider Unavailabl e Source Comments The following information is NOT included in Care Everywhere downloads:Psychiatric notes, ECG results, Cardiac Rehab notes, Pulmonary Function notes, data from [employer] (includes but not limited toPregnancy data,audiograms, eye exams, pre-surgical evaluation notes, well-child exam data).[facility] Allergies Active AllergyReactionsCriticalityNoted DateCommentsSulfamethoxazole W-Jtxmpdtbplwj50/16/5753Tzljzcfwnew25/16/2025 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 Ivztghijmyig41/16/4190Uyvudshqfie91/16/2025 Medications MedicationSigDispense QuantityRefillsLast FilledStart DateEnd DateStatus triamcinolone 0.1 % cream Apply topically 2 times daily. Apply thin layer to affected area. 454 g 05/29/2025 2:02 PM EDT5Active losartan (COZAAR) 50 MG tablet Take 2 Tablets by mouth daily.5Active CARvedilol (COREG) 12.5 MG tablet Take 1 Tablet by mouth 2 times daily.5Active atorvastatin (LIPITOR) 10 MG tablet Take 1 Tablet by mouth at bedtime.5Active Active Problems ProblemNoted DateDiagnosed DateOSA (obstructive sleep apnea)05/29/2025Rash and nonspecific skin vlusgrcy71/16/2025 Social History Tobacco UseTypesPacks/DayYears UsedDateSmoking Tobacco: [facility] UtilitiesAnswerDate RecordedIn the past 12 months has the electric, gas, oil, or water company threatened to shut off services in your home?No05/28/2025 Humiliation, Afraid, Rape, and Kick questionnaireAnswerDate RecordedFear of Current or Ex-PartnerNot on file05/28/2025Within the last year, have you been humiliated or emotionally abused in other ways by your partner or ex-partner?No 05/28/2025Physically AbusedNot on file05/28/2025Sexually AbusedNot on file 05/28/2025Hunger Vital SignAnswerDate RecordedWithin the past 12 months, you worried that your food would run out before you got the money to buymore.Never true05/28/2025Ran Out of Food in the Last YearNot on file05/28/2025PRAPARE - TransportationAnswerDate RecordedIn the past 12 months, has lack of transportation kept you from medical appointments or from getting medications?No 05/28/2025Lack of Transportation (Non-Medical)Not on file05/28/2025Housing Stability Vital SignAnswerDate RecordedIn the last 12 months, was there a time when you were not able to pay the mortgage or rent on time?No05/28/2025Number of Times Moved in the Last YearNot on file05/28/2025Homeless in the Last YearNot on file05/28/2025Utilities - HistoricalAnswerDate RecordedIn the past 12 months has the [employer], gas, oil, or water [employer] threatened to shut off services in your home?No05/28/2025CommentsUnknownSex and Gender InformationValueDate RecordedSex Assigned at BirthNot on fileLegal FluMmqjlu54/16/2025 12:57 PM EDT Gender IdentityNot on fileSexual OrientationNot on file Last Filed Vital Signs Vital SignReadingTime TakenCommentsBlood Neblsaqk236/5907 3:00 PM EDT Nrxpy401405/29/2025 3:00 PM KPPOmktxlvtjec60.7 ??C (98.1 ??F)05/29/2025 1:00 PM EDTRespiratory Xqov612505/29/2025 3:00 PM EDTOxygen Nqlcotawav64%05/29/2025 3:00 PM EDTInhaled Oxygen Concentration--Ouahak248.7 kg (296 lb 15.4 oz)05/29/2025 12:06 AM GYHZsbnnb517.3 cm (5' 11 )05/28/2025 9:53 PM EDTBody Mass Index41.42 05/28/2025 9:53 PM EDT Plan of Treatment Health MaintenanceDue DateLast WprxEwkpsvkwTdkolxblbkp1958Tdap Booster 1976Hepatitis A (HAV) Vaccine (optional start 19+ years)1977 Ramfrqfebyc85/08/1998CRC Pyvbbzxdx13/08/2003Cologuard (Stool DNA)2003FIT 2003Pneumococcal Vaccine(s) (50+ yrs) (1 of 1 - PCV)2008Shingles (RZV) Vaccine (1 of 2)2008Hepatitis B (HBV) Vaccine (optional start 60+ years)2018RSV vaccine (adult) (1 - Risk 60-74 years 1-dose series) 2018Bone Sqtugysitkui52/08/2023nnual Wellness Visit (G0438)04/13/2024 COVID-19 Vaccine ( - season)2025Influenza Vaccine (#1)2025 Pmmqidsyxdj94/03/202708/01/2022Hepatitis C XtmymvwsCdhunbjev64/17/2025Pap Smear Discontinued Procedures Procedure NamePriorityDate/TimeAssociated DiagnosisCommentsHEPATITIS C ANTIBODY Kxzuzyn3805/29/2025 12:13 AM EDT from Last 3 Months or Most Recently Relevant to Health Maintenance Results * HEPATITIS C ANTIBODY (05/29/2025 12:13 AM EDT)ComponentValueRef RangeTest MethodAnalysis TimePerformed AtPathologist SignatureHepatitis C AbNonreactive Vnrupbicddx21/17/2025 5:24 AM [facility]YSpecimen (Source) Anatomical Location / LateralityCollection Method / VolumeCollection Time Received TimeBloodBLOOD SPECIMEN / UnknownVenipuncture / Duggwlc5105/29/2025 12:13 AM EDT05/29/2025 12:22 AM EDT Narrative Authorizing ProviderResult TypeResult StatusHweyrant BELTRAN HIV/HEP/SYPH TESTINGFinal ResultPerforming OrganizationAddressCity/State/ZIP CodePhone Number [facility] [address] [place] [address] from Last 3 Months or Most Recently Relevant to Health Maintenance Insurance * Guarantor: Floridalma Juan TypeRelation to PatientDate of BirthPhone Billing AddressPersonal/WcflagNjvk[id number] [address] MemberSubscriberPlan / Payer (Effective 2023-Present)Name:Naz Juan Member ID:[id number] Relation to Subscriber:SelfName:Naz Juan Subscriber ID:[id number] Payer ID:Not on file Group ID:Not on file Type:Medicare Address: [address] [address] * Guarantor: Floridalma Juan TypeRelation to PatientDate of BirthPhone Billing AddressPersonal/ZghctsFnew[phone] [address] Advance Directives * Full Code (Latest Code Status on File) Date ActivatedDate InactivatedComments05/28/2025 9:56 PM05/29/2025 6:16 PMQuestion AnswerCommentsDocumentation of decision process for this code status:* Patient and surrogate unable or unavailable to discuss.?? Defaulting to the previously documented code status.
--- OUTSIDE RECORDS SUMMARY | 2025-09-19 07:16 | XMS_ITS | Clinical Summary ---
Author Organization Assembly tem Address [id number] [address] [place] [address] Care Team Providers Care Tubular Splitting Machine Tender Name Role Phone Andres Lentz MD Primary Care Provider [phone] Allergies Active AllergyReactionsCriticalityNoted DateComments Sulfamethoxazole-IrfdmvjhzcfhOddecjtr56/26/7066TquthctchwxQliyJqe64/15/2025 AwswxwyplhosGbogkglu81/26/8494Htgfnaxvoff14/17/2025 Medications MedicationSigDispense QuantityRefillsLast FilledStart DateEnd DateStatus albuterol (PROVENTIL,VENTOLIN) 2.5 mg /3 mL (0.083 %) nebulizer solution every 6 (six) hours as needed.Active carvediloL (COREG) 25 mg tablet TAKE 1 TABLET BY MOUTH TWICE A DAY WITH FOOD FOR 90 DAYS5Active furosemide (LASIX) 40 mg tablet Take 1 tablet (40 mg total) by mouth.5Active losartan (COZAAR) 100 mg tablet 1 (one) time each day at the same time.Active omeprazole (PriLOSEC) 40 mg capsule TAKE 1 CAPSULE BY MOUTH EVERY DAY 30 MINUTES BEFORE MORNING MEAL5Active potassium chloride (K-TAB,KLOR-CON) 10 MEQ CR tablet TAKE 1 TABLET BY MOUTH TWICE A DAY FOR 90 DAYS5Active simvastatin (ZOCOR) 20 mg tablet Take 1 tablet (20 mg total) by mouth nightly.5Active ibuprofen (MOTRIN) 600 mg tablet Take 1 tablet (600 mg total) by mouth every 8 (eight) hours.Active cholecalciferol, vitamin D3, 5,000 units tablet Take 1 tablet (5,000 Units total) by mouth in the morning.Active acetaminophen (TYLENOL EXTRA STRENGTH) 500 mg tablet Take 2 tablets (1,000 mg total) by mouth every 8 (eight) hours. 30 tablet 5Active ibuprofen (MOTRIN) 800 mg tablet Take 1 tablet (800 mg total) by mouth every 8 (eight) hours. 30 tablet 5Active sennosides-docusate sodium (SENNA WITH DOCUSATE SODIUM) 8.6-50 mg Take 1 tablet by mouth in the morning and 1 tablet before bedtime. 60 tablet 5Active predniSONE (STERAPRED DS) 10 mg tablet pack 5 tabs per day for 3 days, 4 tabs per day for 3 ays, 3 tabs perday for 3 days, 2 tabs per day for 3days, 1 tab a day for 3 days, 1/2 tab a day for 4 days Orally Once a day for 19 days5Active hydrOXYzine (ATARAX) 25 mg tablet 1 tablet as needed Orally qid for 10 days5Active cephalexin 500 mg tablet 2 tabs Orally bid for 10 days5Active Active Problems ProblemNoted DateDiagnosed DateEndometrial qditmj7404/30/2025 Cancer Staging: Clinical stage from 05/12/2025:FIGO Stage IB(cT1b, cN0, cM0) - Unsigned Resolved Problems ProblemNoted DateDiagnosed DateResolved DatePre-procedure lab exam04/30/2025 05/27/2025 Encounters DateTypeDepartmentCare AogrNuugresrctf68/18/2025 9:00 AM EDTOffice Visit Zakia Gomez [facility] On[facility] [place] [phone] Lindsay Hansen PA Encounter for postoperative care (Primary Dx)06/30/2025Travelfrom Last 3 Months Family History Medical HistoryRelationNameCommentsAnesthesia problemsNeg Hx Social History Tobacco UseTypesPacks/DayYears UsedDateSmoking Tobacco: FemynyWptvtxixgp2264327 - 2016Smokeless Tobacco: Never Tobacco Cessation:Counseling Given: Not Answered Alcohol UseStandard Drinks/WeekCommentsNot Currently0 (1 standard drink = 0.6 oz pure alcohol)ChildcareAnswerDate XtyyapsuQxsiedcbnZcriziv59/12/2019Employment AnswerDate YumssybiMdbjepfwliDdzgmme31/12/2019Hunger ScreeningAnswerDate RecordedWithin the past 12 months we worried whether our food would run out before we got money to buy more.Never True05/08/2025Within the past 12 months the food we bought just didn't last and we didn't have money to get more.Never True05/08/2025Purpose - LifeAnswerDate RecordedPurpose and direction in life Stcrfvg81/11/2021CommentsNoSex and Gender InformationValueDate Recorded Sex Assigned at BirthNot on fileLegal SjxFrjyvl64/06/2015 12:04 PM EDTGender IdentityNot on fileSexual OrientationNot on file Last Filed Vital Signs Vital SignReadingTime TakenCommentsBlood Unktnsnr545/64006/30/2025 8:51 AM EDT Mghxx091206/30/2025 8:51 AM KFZFlcuhiffryn04.5 ??C (97.7 ??F)06/30/2025 8:51 AM EDTRespiratory Jwxn307806/30/2025 8:51 AM EDTOxygen Tlevyyulxj537%06/30/2025 8:51 AM EDTInhaled Oxygen Concentration--Jdyekr607.3 kg (282 lb 12.8 oz)06/30/2025 8:51 AM NHZNrhkyc296.6 cm (5' 11.5 )06/30/2025 8:51 AM EDTBody Mass Index38.9 06/30/2025 8:51 AM EDT Plan of Treatment Health MaintenanceDue DateLast DoneCommentsDepression Chhcodaha64/08/1970Adult BMI Follow Up Plan1976DTaP,Tdap and Td Vaccines (1 - Tdap)1977Fall Risk Cvpftztbg74/08/2023Influenza Pfjabif44Adult BMI Screening Tobacco Jltbcvewi71RSV ( or age 60+ yrs) (1 - 1-dose 75+ series)2033Zoster (Shingles) VaccineCompleted 06/13/2019, 04/15/2019 Medical Devices [place] [id number] Care Teams Team MemberRelationshipSpecialtyStart DateEnd Andres Lentz MD PCP - GeneralFamily Medicine06/24/20
--- OUTSIDE RECORDS SUMMARY | 2025-09-19 07:17 | XMS_ITS | Patient Health Record ---
Author Organization [facility] [place] Address [address] [place] [address] Care Team Providers Care Clinical Unit Coordinator Name Role Phone Femi Lentz Primary Care Provider Allergies Allergen (clinical drug ingredient) Drug/Non Drug Allergy documented on EMR Reaction Allergy Type Onset Date Status sulfamethoxazole / trimethoprim Bactrim unknown Drug Allergy ActiveLevaquinunknownDrug AllergyActiveclindamycinClindamycinRASHDrug Allergy ActivePenicillindiarrheaDrug AllergyActive Results Component Value Reference Range Notes UA DIP NONAUTO WO MICRO (810 02) - IN OFFICE Reviewed date:05/27/2025 09:19:51 AM Interpretation: Performing Lab: Notes/Report: COLOR Yellow CLARITYCloudyGLUCOSENegBILIRUBINNegKETONENegSPECIFIC GRAVITY1.978ARJNUKapGF0 PROTEINNegUROBILINOGENNegNITRITENegLEUKOCYTE ESTERASE++CREATININE Reviewed date:05/03/2025 01:43:49 PM Interpretation: Performing Lab: Notes/Report: [facility] ,Creatinine0.950.55-1.02 mg/dLEstimated GFR ( Nyla>60>=60 mL/min/1.73m 2Estimated GFR (Non- Ame59>=60 mL/min/1.73m 2Performing Lab:see noteML - [facility] LBCBC AUTO DIFF Reviewed date:04/13/2025 04:45:07 PM Interpretation: Performing Lab: Notes/Report: [facility] ,White Blood Count6.14.0-11.0 10 3/uLRed Blood Count4.434.20-5.40 10 6/uL Zonmdcxxfj86.812.0-16.0 g/uCScnqxinbrp98.436.0-48.0 %Mean Corpuscular Fpetwv67.9 81.0-99.0 fLMean Corpuscular Rxrxfnuvpj25.926.7-34.0 pgMean Corpuscular HGB Conc 32.529.9-35.2 g/dLRed Cell Distribution Width12.811.0-15.0 %Platelet Uuszz543 150-450 10 3/uLMean Platelet Notbbb81.79.5-13.5 fLNeutrophils Percent Auto74.5 43.0-75.0 %Lymphocytes Percent Auto17.220.5-60.0 %Monocytes Percent Auto6.21.7- 12.0 %Eosinophils Percent Auto0.80.9-7.0 %Basophils Percent Auto0.80.2-2.0 % Immature Granulocytes Pct Auto0.50.0-0.5 %Neutrophils Absolute Auto4.61.4-6.5 10 3/uLLymphocytes Absolute Auto1.11.2-3.8 10 3/uLMonocytes Absolute Auto0.40.3-0.8 10 3/uLEosinophils Absolute Auto0.10.0-0.7 10 3/uLBasophils Absolute Auto0.10.0- 0.1 10 3/uLImmature Granulocytes Abs Auto0.030.00-0.03 10 3/uLPerforming Lab:see noteML - [facility] LBPROF CHEM 8 (BAS METB) Reviewed date:04/01/2025 08:40:49 PM Interpretation: Performing Lab: Notes/Report: [facility] ,Xxhibo204450-239 mmol/LPotassium4.43.5-5.1 mmol/GGvwcyzee46531-254 mmol/LCarbon Bmnvras58.721.0-32.0 mmol/LAnion Gap14.7Xdiyebz50311-455 mg/dLBlood Urea Aegqummr13.07.0-18.0 mg/dLCreatinine0.910.55-1.02 mg/dLEstimated GFR ( Nyla>60>=60 mL/min/1.73m 2Estimated GFR (Non- Alyce>60>=60 mL/min/1.73m 2BUN Creatinine Ratio20.9Cacnvga2.08.5-10.1 mg/dLPerforming Lab:see note - [facility] LBPROF 14(COMP METB) Reviewed date:06/04/2025 06:10:32 PM Interpretation: Performing Lab: Notes/Report: [facility] ,Iawdcm690183-887 mmol/LPotassium3.63.5-5.1 mmol/NCsyovvab88692-301 mmol/LCarbon Gxdsktj01.721.0-32.0 mmol/LAnion Gap14.6Hjthdao39731-252 mg/dLBlood Urea Pcdxdnyh79.07.0-18.0 mg/dLCreatinine0.860.55-1.02 mg/dLEstimated GFR ( Nlya>60>=60 mL/min/1.73m 2Estimated GFR (Non- Alyce>60>=60 mL/min/1.73m 2BUN Creatinine Ratio27.4Rtvdwgx0.48.5-10.1 mg/dLBilirubin Total0.40.2-1.0 mg/dL Aspartate Amino Oegceravrep571-01 U/LAlanine Anmkdpfwohyoaohw3078-44 U/LAlkaline Gvkdhhyfwan13414-642 U/LTotal Protein6.56.4-8.2 g/dLAlbumin Level3.23.4-5.0 g/dL Globulin3.3Albumin Globulin Ratio1.0Performing Lab:see note - [facility] LBCRP Reviewed date:06/04/2025 06:10:32 PM Interpretation: Performing Lab: Notes/Report: [facility] ,C Reactive Protein0.70<=0.50 mg/dLPerforming Lab:see note - [facility] LBErythrocyte Sedimentation Rate Reviewed date:06/04/2025 06:10:32 PM Interpretation: Performing Lab: Notes/Report: [facility] ,Erythrocyte Sedimentation Rate19<=30 mm/hrPerforming Lab:see note - [facility] LBCT abdomen pelvis w con Reviewed date:05/03/2025 01:43:49 PM Interpretation: Performing Lab: Notes/Report: Source Facility: [id number] [place] [address] Scan Report Signed Patient: DELMIS JUAN MR#: [id number] : 1960 Acct:[id number] Age/Sex: 65 / F ADM Date: 05/02/25 Loc: LAB Attending Dr: AlexanderStaff Physician Toure Ordering Physician: Jorge Penn M.D. Date of Service: 05/02/25 Procedure(s): CT abdomen pelvis w con Accession Number(s): [id number] cc: Andres Lentz M.D. [place] [address] Patient Name: DELMIS JUAN MRN: [id number] date: 1960 Sex: F Assigned Patient Location: LAB Current Patient Location: LAB Accession/Order Number: [id number] Exam Date: 05/02/2025 10:28 Report Date: 05/02/2025 10:50 At the request of: NON-STAFF PHYSICIAN LARES Procedure: CT abdomen pelvis w con CT CHEST, ABDOMEN AND PELVIS WITH INTRAVENOUS CONTRAST: CLINICAL HISTORY: Recently diagnosed endometrial cancer. Lower abdominal pain. COMPARISON: None TECHNIQUE: Spiral images were obtained through the chest, abdomen and pelvis following oral and intravenous administration of 100 mL of the PICC 300. Images were reviewed using both narrow and wide window settings. This CT exam was performed using one or more following dose reduction techniques: Automated exposure control, adjustment of the mA and/or kV according to patient size, or use of iterative reconstruction technique. FINDINGS: The heart is not enlarged. There is no pericardial effusion. Minor coronary disease is seen. No aortic aneurysm or dissection is identified. There is a small amount of plaque at the aortic arch and proximal great vessels. There is no mediastinal or hilar lymphadenopathy. A moderate size hiatal hernia is seen. There is some respiratory motion. No consolidation, pleural effusion or pneumothorax is noted. There are small bilateral pulmonary nodules. A bilobed nodular area is seen adjacent to the major fissure at the left lower lobe (axial image 39) measuring 6 mm. There is a 4 - 5 mm left lower lobe nodule on axial image #62. On the right, there is a 4 - 5 mm nodular area within the right middle lobe adjacent to the minor fissure (axial image 44). There is a 3 mm right lower lobe nodule laterally on axial image 62. There is also a 3 - 4 mm nodule at the right upper lobe anteriorly on axial image 33. There is endplate spurring at the spine. No calcified gallstones are visualized. No intrahepatic masses are seen. The spleen and pancreas show no acute findings. There is slight adrenal gland thickening, greater on the left. The renal nephrograms are symmetric. No hydronephrosis is identified. There is a small right renal cyst. There is atherosclerotic plaque at the aorta and iliac arteries. There is a small supraumbilical ventral hernia containing fat. No ascites is seen. There are small mesenteric and retroperitoneal lymph nodes, largest in the periportal region with short axis dimension of 1 cm. The small bowel loops are normal caliber. There is mild stool throughout the colon. Left-sided colonic diverticula are seen. There is dextroscoliotic curvature and degenerative changes at the spine, greatest at the lower facets. Images through the pelvis show normal caliber small bowel. No appendiceal inflammation is seen. The distal colon is underdistended. There are multiple additional descending and sigmoid diverticula. No active inflammation is present. The uterus is small and slightly dextroverted. There are no adnexal cysts. The urinary bladder is poorly distended for evaluation. No ascites is seen. No pelvic lymphadenopathy is noted. CT/CT abdomen pelvis w con IMPRESSION: TINY SCATTERED BILATERAL PULMONARY NODULES. THERE ARE NO PRIORS TO ASSESS CHRONICITY. HIATAL HERNIA. NONSPECIFIC ABDOMINAL LYMPH NODES. NO BOWEL OR URINARY TRACT OBSTRUCTION. DIVERTICULOSIS. NO OTHER ACUTE FINDINGS. Impression dictated by: Dina Antunez M.D. 05/02/2025 10:50 AM Dictation Location: [place] [address] Electronically authenticated by: [id number] Y Date: 05/02/2025 10:50 Dictated By: Dina Antunez M.D. Signed By: 05/02/25 1053 DD/ 1050 TD/TT: Sand Control Worker:CT CHEST W CON Reviewed date:05/03/2025 01:43:49 PM Interpretation: Performing Lab: Notes/Report: Source Facility: [place] [address] [address] [address] [address] Scan Report Signed Patient: DELMIS JUAN MR#: [id number] : 1960 Acct:[id number] Age/Sex: 65 / F ADM Date: 05/02/25 Loc: LAB Attending Dr: AlexanderStaff Physician Toure Ordering Physician: Jorge Penn M.D. Date of Service: 05/02/25 Procedure(s): CT chest w con Accession Number(s): [id number] cc: Andres Lentz M.D. [place] [address] Patient Name: DELMIS JUAN MRN: [id number] date: 1960 Sex: F Assigned Patient Location: LAB Current Patient Location: LAB Accession/Order Number: [id number] Exam Date: 05/02/2025 10:28 Report Date: 05/02/2025 10:50 At the request of: NON-STAFF PHYSICIAN LARES Procedure: CT abdomen pelvis w con CT CHEST, ABDOMEN AND PELVIS WITH INTRAVENOUS CONTRAST: CLINICAL HISTORY: Recently diagnosed endometrial cancer. Lower abdominal pain. COMPARISON: None TECHNIQUE: Spiral images were obtained through the chest, abdomen and pelvis following oral and intravenous administration of 100 mL of the PICC 300. Images were reviewed using both narrow and wide window settings. This CT exam was performed using one or more following dose reduction techniques: Automated exposure control, adjustment of the mA and/or kV according to patient size, or use of iterative reconstruction technique. FINDINGS: The heart is not enlarged. There is no pericardial effusion. Minor coronary disease is seen. No aortic aneurysm or dissection is identified. There is a small amount of plaque at the aortic arch and proximal great vessels. There is no mediastinal or hilar lymphadenopathy. A moderate size hiatal hernia is seen. There is some respiratory motion. No consolidation, pleural effusion or pneumothorax is noted. There are small bilateral pulmonary nodules. A bilobed nodular area is seen adjacent to the major fissure at the left lower lobe (axial image 39) measuring 6 mm. There is a 4 - 5 mm left lower lobe nodule on axial image #62. On the right, there is a 4 - 5 mm nodular area within the right middle lobe adjacent to the minor fissure (axial image 44). There is a 3 mm right lower lobe nodule laterally on axial image 62. There is also a 3 - 4 mm nodule at the right upper lobe anteriorly on axial image 33. There is endplate spurring at the spine. No calcified gallstones are visualized. No intrahepatic masses are seen. The spleen and pancreas show no acute findings. There is slight adrenal gland thickening, greater on the left. The renal nephrograms are symmetric. No hydronephrosis is identified. There is a small right renal cyst. There is atherosclerotic plaque at the aorta and iliac arteries. There is a small supraumbilical ventral hernia containing fat. No ascites is seen. There are small mesenteric and retroperitoneal lymph nodes, largest in the periportal region with short axis dimension of 1 cm. The small bowel loops are normal caliber. There is mild stool throughout the colon. Left-sided colonic diverticula are seen. There is dextroscoliotic curvature and degenerative changes at the spine, greatest at the lower facets. Images through the pelvis show normal caliber small bowel. No appendiceal inflammation is seen. The distal colon is underdistended. There are multiple additional descending and sigmoid diverticula. No active inflammation is present. The uterus is small and slightly dextroverted. There are no adnexal cysts. The urinary bladder is poorly distended for evaluation. No ascites is seen. No pelvic lymphadenopathy is noted. CT/CT chest w con IMPRESSION: TINY SCATTERED BILATERAL PULMONARY NODULES. THERE ARE NO PRIORS TO ASSESS CHRONICITY. HIATAL HERNIA. NONSPECIFIC ABDOMINAL LYMPH NODES. NO BOWEL OR URINARY TRACT OBSTRUCTION. DIVERTICULOSIS. NO OTHER ACUTE FINDINGS. Impression dictated by: Dina Antunez M.D. 05/02/2025 10:50 AM Dictation Location: [place] [address] Electronically authenticated by: [id number] Y Date: 05/02/2025 10:50 Dictated By: Dina Antunez M.D. Signed By: 05/02/25 1053 DD/ 1050 TD/TT: Sand Control Worker:ECG 12 lead Reviewed date:04/01/2025 08:40:49 PM Interpretation: Performing Lab: Notes/Report: Source Facility: [place] [address] The [place] [id number] Electrocardiograph Report Signed Patient: DELMIS JUAN MR#: [id number] : 1960 Acct:[id number] Age/Sex: 64 / F ADM Date: 04/01/25 Loc: PST Attending Dr: Kurtis Valdez D.O. Ordering Physician: Kurtis Valdez D.O. Date of Service: 04/01/25 Procedure(s): ECG 12 lead Accession Number(s): [id number] cc: [facility] Test Date: 2025-04-01 Pat Name: DELMIS JUAN Department: Room: - Gender: Female Physical Therapy Director: : 1960 Requested By: KURTIS VALDEZ Order Number: [id number] Reading MD: MAC ECHOLS M.D. Measurements Intervals [place] Rate: 55 P: 40 TX: 162 QRS: 30 QRSD: 89 T: 23 QT: 414 QTc: 398 Interpretive Statements SINUS BRADYCARDIA Borderline ECG Compared to ECG 01/04/2017 20:11:26 Heart rate has decreased Electronically Signed On 04-01-2025 18:34:40 EDT by MAC ECHOLS M.D. Dictated By: MAC ECHOLS Signed By: 04/01/25 1835 DD/ 0953 TD/TT: Sand Control Worker: Reason For Referral Diagnosis 1 Screening for colon cancer (Z12.11) Referral Organization [facility] Referring Provider First Name Femi Referring Provider Last Name Mary Carmen Referring Provider Speciality Family Med vic Referred Provider Karan Bates Referred Provider Specialty General Surg richy Referral Priority Routine Medications Medication SIG (Take, Route, Frequency, Duration) Notes Start Date End Date Status Vitamin D3 125 MCG (5000 UT) TAKE 1 CAPS ULE BY MOUTH ONCE A DAY DIRECTED; Duration: 90 ActiveSimvastatin 20 MGTAKE 1 TABLET BY MOUTH EVERY DAY IN THE EVENING FOR 90 DAYS; Duration: 90ActiveLosartan Potassium 100 MGTAKE 1 TABLET BY MOUTH EVERY DAY; Duration: 90ActiveOmeprazole 40 MGTAKE 1 CAPSULE BY MOUTH 30 MINUTES BEFORE MORNING MEAL ONCE A DAY; Duration: 90ActiveAlbuterol Sulfate (2.5 MG/3ML) 0.083% 3 mL as needed Inhalation every 6 hrs DX: J43.9; Duration: 30 daysActive Potassium Chloride ER 10 MEQTAKE 1 TABLET BY MOUTH TWICE A DAY; Duration: 90 daysActiveamLODIPine Besylate 5 MGTAKE 1 TABLET BY MOUTH EVERY DAY FOR 30 DAYS; Duration: 90ActiveCarvedilol 25 MGTAKE 1 TABLET BY MOUTH TWICE A DAY WITH FOOD FOR 90 DAYS; Duration: 90ActivepredniSONE 20 MG2 tablets Orally Once a day; Duration: 5 days5ActiveSenexon-S 8.6-50 MG1 tablet as needed Orally Twice a dayActiveCefdinir 300 MG2 capsule Orally once a day; Duration: 10 days 5ActiveFurosemide 40 MGTAKE 1 TABLET BY MOUTH EVERY DAY; Duration: 90 ActivehydrOXYzine HCl 25 MG1 tablet as needed Orally qid; Duration: 10 days 5ActiveIbuprofen 600 MGTAKE 1 TABLET BY MOUTH 3 TIMES A DAY WITH FOOD OR MILK NEEDED; Duration: 90Active Social History Tobacco Use: Social History Observation Description Date Details (start date - stop date) Former Smoker 11/13/1984 - 11/13/2008 Tobacco Control (Standard) Question Answer Notes Tobacco use: Former smoker When did you start smoking?11/13/1984When did you stop smoking?11/13/2008How long has it been since you last smoked?Greater than 10 yearsAdditional Findings: Tobacco obw-iwgfXb-pzlgl cigarette smoker (20-30/day)AUDIT-C (Standard) Question Answer Notes Did you have a drink containing alcohol in the p ast year? No Ujtnov3HegbzlvzqxwvwsEuekxckc Problems Problem Type SNOMED Code ICD Code Onset Dates Problem Status W/U Status Risk Notes Problem Strain of muscle(s) and tendon(s) of anterior muscle group at lower leg level, unspecified leg, initial encounter (S86.219A)ActiveconfirmedProblemSprain of other ligament of unspecified ankle, initial encounter (S93.499A)Activeconfirmed ProblemChest pain (72371640)Chest pain (R07.9)ActiveconfirmedProblem Osteoarthritis (906383870)Osteoarthritis (M19.90)ActiveconfirmedProblem Gastroesophageal reflux disease (505948730)GERD (gastroesophageal reflux disease) (K21.9)ActiveconfirmedProblemDyspnea on exertion (48257616)Dyspnea on exertion (R06.09)ActiveconfirmedProblemAnkle pain (477651853)Ankle pain (M25.579)ActiveconfirmedProblemWell adult (493372429)Well adult (Z00.00)Active confirmedProblemNasal obstruction (095430378)Nasal obstruction (J34.89)Active confirmedProblemEdema (361175443)Edema of both legs (R60.0)Activeconfirmed ProblemOnychocryptosis (952393777)Onychocryptosis (L60.0)ActiveconfirmedProblem Asthmatic bronchitis (288096927)Asthmatic bronchitis (J45.909)Activeconfirmed ProblemDrug rash (41687560)Drug rash (L27.0)ActiveconfirmedProblemEssential hypertension (13604959)Essential (primary) hypertension (I10)Activeconfirmed ProblemEmphysema (45498163)Emphysema (J43.9)ActiveconfirmedProblemEssential hypertension (58674682)Essential Hypertension (I10)ActiveconfirmedProblemTobacco user (527447015)Tobacco dependence with current use (F17.200)Activeconfirmed Vital Signs Temperature 98.0 degrees Fahrenheit 09/03/2025 Blood pressure lxjxsklox85 mm Hg09/03/20254765Zkyarn61 in09/03/2025lood pressure xugqyckp947 mm Hg09/03/20250746Vcamga193.8 lbs1MI40.14 kg/m209/03/2025 Procedures Procedure Date Ordered Date Performed Result Body Sit e Cerumen Removal - performed 11/01/2024 11/01/2024 N/A Encounters Encounter Location Date Provider Diagnosis [facility] [address] [place] [address] 11/01/2024 Femi Hoy Acute bronchitis, unspecified organism J20.9 ; Cerumen impaction H61.20 and Bilateral hearing loss due to cerumen impaction H61.23 [facility] [address] [place] [address] 05/26/2025 Femi Hoy Drug rash L27.0 [facility] [address] [place] [address] 05/27/2025 Femi Hoy Drug rash L27.0 [facility] [address] [facility] [place] [address] 09/03/2025 Femi Hoy Acute non-recurrent sinusitis, unspecified location J01.90 and Nasal congestion R09.81 [facility] [address] [place] [place] [address] 06/04/2025 Femi Hoy Drug rash L27.0 [facility] [address] [place] [address] 09/27/2024 Femi Hoy [facility] [place] [place] [address] 12/23/2024[facility] [facility] [place] [address]/12/2024Doug HoyAcute bronchitis, unspecified organism J20.9B[place] [address] [place] [place] [address]/ Femi [place] [address] [place] [address]/Doug [facility] [place] [address]/Doug [facility] [place] [address]/Doug HoyScreening for colon cancer Z12.11BJohn [place] [address] [place] [address]/04/2025Doug HoyEssential (primary) hypertension I10 and Well adult Z00.00 Assessments Encounter Date Diagnosis (ICD Code) Assessment Notes Treatment Notes Treatment Clinical Notes Section Notes 05/26/2025 Drug rash (ICD-10 - L27.0) 05/27/2025Drug rash (ICD-10 - L27.0)06/04/2025Drug rash (ICD-10 - L27.0) 5Acute non-recurrent sinusitis, unspecified location (ICD-10 - J01.90) Rest and drink more liquids, especially water. You may use a humidifier or vaporizer to help keep the drainage moist. Xzam-dwk-inahnzt Nasal Saline may help the stuffy and runny nose. Use Ibuprofen and or Tylenol as needed for fever, chills, body aches or pain. Children 5 years old should not be given sgdl-jau-ovmvhcc cough and cold medications such as guaifenesin and dextromethorphan. If you're over age 5, you may try dezv-mtn-ypdyiht cold medications such as guaifenesin and dextromethorphan, or multi-symptom cold reliever such as Dayquil to help reduce the symptoms. Antibiotics have been pre scribed. You should take these until completed and follow the directions. Antibiotics can sometimescause upset stomach, and in rare cases, serious allergic reactions or serious gastrointestinal problems. If you start having severe abdominal pain, severe vomiting, or bloody diarrhea, you should be r eevaluated by your physician or urgent care immediately. Follow up with your Primary Care Provider or return to clinic if symptoms do not improve within 3-5 days5Acute bronchitis, unspecified organism (ICD-10 - J20.9)08/26/2025 Screening for colon cancer (ICD-10 - Z12.11)09/18/2025Essential (primary) hypertension (ICD-10 - I10)09/18/2025Well adult (ICD-10 - Z00.00)4Acute bronchitis, unspecified organism (ICD-10 - J20.9)Rest and drink more liquids, especially water. You may use a humidifier or vaporizer to help keep the drainage moist. Jpul-rit-ojwwjjv Nasal Saline may help the stuffy and runny nose. Use Ibuprofen and or Tylenol as needed for fever, chills, body aches or pain. Children 5 years old should not be given avsm-bnx-itwnbpw cough and cold medications such as guaifenesin and dextromethorphan. If you're over age 5, you may try sxyj-wzi-qlycmjg cold medications such as guaifenesin and dextromethorphan, or multi-symptom cold reliever such as Dayquil to help reduce the symptoms. Antibiotics have been prescribed. You should take these until completed and follow the directions. Antibiotics can sometimescause upset stomach, and in rare cases, serious [...] go to the emergency room or call [phone] impaction (ICD-10 - H61.20)11/01/2024ilateral hearing loss due to cerumen impaction (ICD-10 - H61.23)09/03/2025Nasal congestion (ICD-10 - R09.81) Plan Of Treatment Pending Test Test Name Order Date CMP (COMPLETE METABOLIC PANEL) 4 HEMOGLOBIN A1C (GLYCO) 04/11/2024 IRON, TOTAL 04/11/2024 LIPID PANEL (CHOL/TRIG/HDL/LDL) 04/11/20 24 CBC WITH DIFF 04/11/2024 VITAMIN D, 25 LEVEL (TOTAL) 04/11/2024 Cerumen Removal - performed 11/01/2024 MAMM MAMMOGRAM CAD DIAGNOSTIC 04/11/2024 CBC 09/18/2025 Insulin Level 04/11/2024 CMP - Comprehensive Metabolic Panel 04/2025 STOOL OCCULT BLOOD 04/11/2024 GLYCOHEMOGLOBIN A1C 09/18/2025 LIPID PROFILE 09/18/2025 SED RATE WESTERGREN 06/04/2025 XR ANKLE RT MIN 3 VIEWS 05/25/2023 THYROID PANEL (T4/TSH/FREE T3) 5 THYROID PANEL (T4/TSH/FREE T3) 4 Insurance Providers Payer Name Payer Address Payer Phone Subscriber Number Group Number Insured Name Patient Relationship to Insured Coverage Start Date Coverage End Date [place] [address] [place] [address] [id number] Fox Juan - patient is the insuredMUTUAL OF [address] MEDICARE SUPP CLMS DEPT [place] [id number] Fox Juan - patient is the insured Medications Administered Medication Instructions Date of Administration Dosage Notes Dexamethasone, 4mg/mL mgTriamcinolone 40 mg/ml mg Medical (General) History Medical History History ICD Code Well adult Z00.00 Ankle pain M25.579 Osteoarthritis M19.90 Essential Hypertension I10 Dyspnea on exertion R06.09 Edema of both legs R60.0 GERD (gastroesophageal reflux disease) K 21.9 Nasal obstruction J34.89 Chest pain R07.9 Emphysema J43.9 Asthmatic bronchitis J45.909 Tobacco dependence with current use F17. 200 Surgical History Surgery Date(Month/Year) cataract OU HysterectomyHospitalization History Reason Date(Month/Year) Reaction to ATB 2024
[2025-09-19 07:53] LABS: Hematocrit 39.7 % (36.0-48.0); Hemoglobin 12.4 g/dL (12.0-16.0); Immature Granulocytes Abs Auto 0.01 10^3/uL (0.00-0.03); Immature Granulocytes Pct Auto 0.2 % (0.0-0.5); Lymphocytes Absolute Auto 0.9 10^3/uL (1.2-3.8); Mean Corpuscular HGB Conc 31.2 g/dL (29.9-35.2); Mean Corpuscular Hemoglobin 28.6 pg (26.7-34.0); Mean Corpuscular Volume 91.5 fL (81.0-99.0); Platelet Count 187 10^3/uL (150-450); Red Blood Count 4.34 10^6/uL (4.20-5.40); White Blood Count 5.7 10^3/uL (4.0-11.0)
[2025-09-19 08:29] LABS: Alanine Aminotransferase 18 U/L (14-59); Albumin Globulin Ratio 0.9; Albumin Level 3.2 g/dL (3.4-5.0); Alkaline Phosphatase 95 U/L (46-116); Anion Gap 10.4; Aspartate Amino Transferase 12 U/L (15-37); Blood Urea Nitrogen 14.0 mg/dL (7.0-18.0); Calcium 9.0 mg/dL (8.5-10.1); Carbon Dioxide 29.0 mmol/L (21.0-32.0); Chloride 107 mmol/L (98-107); Cholesterol 154 mg/dL (<=200); Estimated GFR (African America >60 (>=60 mL/min/1.73m^2); Estimated GFR (Non-African Ame >60 (>=60 mL/min/1.73m^2); Free T3 2.25 pg/mL (2.18-3.98); Globulin 3.7 g/dL; Glucose 110 mg/dL (74-106); HDL Cholesterol 54 mg/dL (40-60); Potassium 4.4 mmol/L (3.5-5.1); Sodium 142 mmol/L (136-145); Thyroid Stimulating Hormone 3.952 uIU/mL (0.358-3.740); Total Protein 6.9 g/dL (6.4-8.2); Triglycerides 52 mg/dL (<=150); VLDL CHOLESTEROL 10.4 mg/dL
== END 2025-09-19 07:12 | disposition home or self-care (01) ==
LOC: LAB 07:11
PROVIDERS: PCP Family Medicine; Visit Provider Family Medicine
DX: E78.5 Hyperlipidemia, unspecified (principal); D64.9 Anemia, unspecified; E03.9 Hypothyroidism, unspecified; R73.09 Other abnormal glucose
CPT/HCPCS: 36415; 80053; 80061; 83036; 84436; 84443; 84481; 85025

== ENCOUNTER 2025-10-14 10:46 | Outpatient (OUT) | payer MEDICARE, OTHER, SELFPAY ==
--- OUTSIDE RECORDS SUMMARY | 2025-10-14 10:49 | XMS_ITS | Clinical Summary ---
Author Organization [facility] Address [address] [place] [address] Care Team Providers Care Coating Mixer Name Role Phone Andres Lentz MD Primary Care Provider [phone] Mat, Berta OD Unavailable Allergies Active AllergyReactionsCriticalityNoted OtfqKfhqjxkhXliykiuuahl52/17/2025 Medications MedicationSigDispense QuantityRefillsLast FilledStart DateEnd DateStatus losartan [...] membrane (ERM) of left eye05/21/2024 Encounters DateTypeDepartmentCare UronTapidjfjfik83/23/2025 1:40 PM EDTProcedure Visit [facility] [address] [facility] [address] [place] [phone] Liborio Bagley DPM Other specified disorders of synovium, left ankle and foot (Primary Dx); Pain due to onychomycosis of toenails of both feet09/04/2025amboo flowsheet [facility] [address] [facility] [address] [place] [address] Liborio Bagley DPM 09/04/2025Travelfrom Last 3 Months Family History Medical HistoryRelationNameCommentsCancerOtherDiabetesSiblingHeart disease SiblingRelationNameStatusCommentsOtherSiblingAlive Social History Tobacco UseTypesPacks/DayYears UsedDateSmoking Tobacco: FormerCigarettes Smokeless Tobacco: Never Tobacco Cessation:Counseling Given: Yes Alcohol UseStandard Drinks/WeekCommentsNever0 (1 standard drink = 0.6 oz pure alcohol)CommentsUnknownSex and Gender InformationValueDate RecordedSex Assigned at BirthNot on fileLegal PbaEdjjyv06/08/2023 4:55 PM EDTGender Identity Not on fileSexual OrientationNot on file Last Filed Vital Signs Vital SignReadingTime TakenCommentsBlood Uouhfsil642/7707 7:55 AM EDT Rumfw7649 7:55 AM EDTTemperature--Respiratory Exui7660 1:24 PM EDTOxygen Saturation--Inhaled Oxygen Concentration--Pjtktk830 kg (286 lb) 09/04/2025 1:24 PM ZKPZmikgx196.3 cm (5' 11 )09/04/2025 1:24 PM EDTBody Mass Index39.8909/04/2025 1:24 PM EDT Plan of Treatment DateTypeDepartmentCare Team (Latest Contact Info)Adpxnutbdaa46/22/2026 1:20 PM ESTProcedure Visit [facility] [address] [facility] [address] [place] [phone] Liborio Bagley DPM [address] [facility] [address] [place] [address] Health MaintenanceDue DateLast DoneCommentsCT Tmnpojmvfwiq1958Colonoscopy 1958Colorectal Cancer Cletfomim1958FIT-DNA1958FIT1958 FOBT1958 0933Kkicaignvprrg44/08/8761Bzgrsvdpa85/08/1998Pneumococcal Vaccine: 65+ Years (1 of 1 - PCV)2008COVID-19 Vaccine (3 - 2024- season) /06/2022, 10/30/2021Influenza Vaccine (#1) Insurance * Guarantor: Naz Juan TypeRelation to PatientDate of PhoneBilling AddressPersonal/FbpsboNcju[id number] [place] [address] [address] [place] [address] [place] [place] [place] [phone] Care Teams Team MemberRelationshipSpecialtyStart Date Andres Lentz MD [address] [facility] [place] [id number] PCP - GeneralFamily Medicine07/04/23 Berta Rivero OD [address] [place] [address] Referring PhysicianOptometry05/21/24
--- OUTSIDE RECORDS SUMMARY | 2025-10-14 10:49 | XMS_ITS | Clinical Summary ---
Author Organization [facility] Address [address] [facility] [place] [address] Care Team Providers Care Piano Mechanic Apprentice Name Role Phone Unavailable Primary Care Provider Unavailabl e Source Comments The following information is NOT included in Care Everywhere downloads:Psychiatric notes, ECG results, Cardiac Rehab notes, Pulmonary Function notes, data from [employer] (includes but not limited toPregnancy data,audiograms, eye exams, pre-surgical evaluation notes, well-child exam data).[facility] Allergies Active AllergyReactionsCriticalityNoted DateCommentsSulfamethoxazole W-Qtgqkbeskrue96/16/3698Zwgcpmvpaft43/16/2025 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 Egtcgznucuua63/16/6719Kiexntgjvkm55/16/2025 Medications MedicationSigDispense QuantityRefillsLast FilledStart DateEnd DateStatus triamcinolone [...] DateOSA (obstructive sleep apnea)05/29/2025Rash and nonspecific skin qbjeiuys78/16/2025 Social History Tobacco UseTypesPacks/DayYears UsedDateSmoking Tobacco: Never [facility] UtilitiesAnswerDate RecordedIn the past 12 months [...] RecordedIn the past 12 months has the [employer], gas, oil, or water [employer] threatened to shut off services in your home?No05/28/2025CommentsUnknownSex and Gender InformationValueDate RecordedSex Assigned at BirthNot on fileLegal JibQzepyb33/16/2025 12:57 PM EDT Gender IdentityNot on fileSexual OrientationNot on file Last Filed Vital Signs Vital SignReadingTime TakenCommentsBlood Vxgcrkbk567/5907 3:00 PM EDT Kiukj975105/29/2025 3:00 PM EUVMpublkpaniv53.7 ??C (98.1 ??F)05/29/2025 1:00 PM EDTRespiratory Pnzb869805/29/2025 3:00 PM EDTOxygen Bmbjsnthrd33%05/29/2025 3:00 PM EDTInhaled Oxygen Concentration--Grbmqg619.7 kg (296 lb 15.4 oz)05/29/2025 12:06 AM GZPJukngb870.3 cm (5' 11 )05/28/2025 9:53 PM EDTBody Mass Index41.42 05/28/2025 9:53 PM EDT Plan of Treatment Health MaintenanceDue DateLast HtavPkzygpckBeldbvhevhp1958Tdap Booster 1976Hepatitis A (HAV) Vaccine (optional start 19+ years)1977 Nqhmxvrbkqv55/08/1998CRC Jdgzehgvj73/08/2003Cologuard (Stool DNA)2003FIT 2003Pneumococcal Vaccine(s) (50+ yrs) (1 of 1 - PCV)2008RSV vaccine (adult) (1 - Risk 50-74 years 1-dose series)2008Shingles (RZV) Vaccine (1 of 2)2008Hepatitis B (HBV) Vaccine (optional start 60+ years)2018 Bone Gbmaxyqdxwyr34/08/2023Annual Wellness Visit (G0438)04/13/2024OVID-19 Vaccine ( season)2025Influenza Vaccine (#1)2025 Jktomounfzu36Hepatitis C ChlouujjOugitelds98/17/2025Pap Smear Discontinued Procedures Procedure NamePriorityDate/TimeAssociated DiagnosisCommentsHEPATITIS C ANTIBODY Lilqkzv2605/29/2025 12:13 AM EDT from Last 3 Months or Most Recently Relevant to Health Maintenance Results * HEPATITIS C ANTIBODY (05/29/2025 12:13 AM EDT)ComponentValueRef RangeTest MethodAnalysis TimePerformed AtPathologist SignatureHepatitis C AbNonreactive Nlpjgocimwz55/17/2025 5:24 AM [facility] PATHOLOG[facility] LABORATORYSpecimen (Source) Anatomical Location / LateralityCollection Method / VolumeCollection Time Received TimeBloodBLOOD SPECIMEN / UnknownVenipuncture / Wycjmhv0405/29/2025 12:13 AM EDT05/29/2025 12:22 AM EDT Narrative Authorizing ProviderResult TypeResult StatusHweyrant BELTRAN HIV/HEP/SYPH TESTINGFinal ResultPerforming OrganizationAddressCity/State/ZIP CodePhone Number [facility] [address] [place] [address] from Last 3 Months or Most Recently Relevant to Health Maintenance Insurance * Guarantor: Floridalma Juan TypeRelation to PatientDate of BirthPhone Billing AddressPersonal/WwqonqEshg1960 [phone] [address] MemberSubscriberPlan / Payer (Effective 2023-Present)Name:Naz Juan Member ID:[id number] Relation to Subscriber:SelfName:Naz Juan Subscriber ID:[id number] Payer ID:Not on file Group ID:Not on file Type:Medicare Address: [address] [address] * Guarantor: Floridalma Juan TypeRelation to PatientDate of BirthPhone Billing AddressPersonal/LvrupcKfec[phone] [address] Advance Directives * Full Code (Latest Code Status on File) Date ActivatedDate InactivatedComments05/28/2025 9:56 PM05/29/2025 6:16 PMQuestion AnswerCommentsDocumentation of decision process for this code status:* Patient and surrogate unable or unavailable to discuss.?? Defaulting to the previously documented code status.
--- OUTSIDE RECORDS SUMMARY | 2025-10-14 10:49 | XMS_ITS | Clinical Summary ---
Author Organization [facility] Address [address] [facility], [address] [place] [address] Care Team Providers Care Coloring Machine Operator Name Role Phone Andres Lentz MD Primary Care Provider [phone] Social History Tobacco UseTypesPacks/DayYears UsedDateSmoking Tobacco: Never Assessed CommentsUnknownSex and Gender InformationValueDate RecordedSex Assigned at Not on fileLegal NnbHxnxqz53/10/2013 10:00 AM ESTGender IdentityNot on file Sexual OrientationNot on file Plan of Treatment Health MaintenanceDue DateLast DoneCommentsDepression Dajhkz9104/20/1970Hepatitis C yegdgn1604/20/1976DTaP/Tdap/Td vaccine (1 - Tdap)1977Breast cancer screen 04/20/19984556Wfwdti09/08/4339Bshsnzygkfn33/08/2003Colorectal Cancer Screen 2003FIT/FOBT: Average risk2003Fecal-DNA (Cologuard): Average risk 2003Sigmoidoscopy/CT ulcprjkujegz67/08/2003Pneumococcal 50+ years Vaccine (1 of 1 - PCV)2008DEXA (modify frequency per FRAX score)2013nnual Wellness Visit (Medicare)10/09/2023Flu vaccine (#1)5COVID-19 Vaccine (3 - season)501/06/2022, 1Respiratory Syncytial Virus (RSV) or age 60 yrs+ (1 - 1-dose 75+ series)2033Shingles vaccine Xwpanktfk45/01/2019, 04/15/2019Hepatitis A vaccineAged OutNo longer eligible based [...] age [place] [address] Care Teams Team MemberRelationshipSpecialtyStart DateEnd Andres Lentz MD [address] [facility] [place] [phone] PCP - GeneralFamily Medicine07/05/23
--- OUTSIDE RECORDS SUMMARY | 2025-10-14 10:49 | XMS_ITS | Clinical Summary ---
Author Organization [employer] [facility] Address [id number] [place] [address] Care Team Providers Care District Branch Manager Name Role Phone Andres Lentz MD Primary Care Provider [phone] Allergies Active AllergyReactionsCriticalityNoted DateComments Sulfamethoxazole-MsitelwuqkfvBfszegen83/26/0845EfwfpqrpiebXjkdQyw62/15/2025 CgeiwdttodibUyagxegb05/26/0948Qspyfqrldoi74/17/2025 Medications MedicationSigDispense QuantityRefillsLast FilledStart DateEnd DateStatus albuterol [...] tablet as needed Orally qid for 10 days05/27/2025tive cephalexin 500 mg tablet 2 tabs Orally bid for 10 days5Active Active Problems ProblemNoted DateDiagnosed DateEndometrial heulrv2704/30/2025 Cancer Staging: Clinical stage from 05/12/2025:FIGO Stage IB(cT1b, cN0, cM0) - Unsigned Resolved Problems ProblemNoted DateDiagnosed DateResolved DatePre-procedure lab exam04/30/2025 05/27/2025 Family History Medical HistoryRelationNameCommentsAnesthesia problemsNeg Hx Social History Tobacco UseTypesPacks/DayYears UsedDateSmoking Tobacco: HhhugkEvgqwygmlx2397329 - 2016Smokeless Tobacco: Never Tobacco Cessation:Counseling Given: Not Answered Alcohol UseStandard Drinks/WeekCommentsNot Currently0 (1 standard drink = 0.6 oz pure alcohol)ChildcareAnswerDate MoxebwnsKyphyulibKolhogh17/12/2019Employment AnswerDate NvnantsmWinrjvcnkaAephlsk33/12/2019Hunger ScreeningAnswerDate RecordedWithin the past 12 months we worried whether our food would run out before we got money to buy more.Never True05/08/2025Within the past 12 months the food we bought just didn't last and we didn't have money to get more.Never True05/08/2025Purpose - LifeAnswerDate RecordedPurpose and direction in life Cxboqxx56/11/2021CommentsNoSex and Gender InformationValueDate Recorded Sex Assigned at BirthNot on fileLegal IieCzdgrt15/06/2015 12:04 PM EDTGender IdentityNot on fileSexual OrientationNot on file Last Filed Vital Signs Vital SignReadingTime TakenCommentsBlood Jhlhbavx161/64006/30/2025 8:51 AM EDT Cqfis682806/30/2025 8:51 AM SXMDcvatoseeli59.5 ??C (97.7 ??F)06/30/2025 8:51 AM EDTRespiratory Aznt411606/30/2025 8:51 AM EDTOxygen Vhnqqrshzf191%06/30/2025 8:51 AM EDTInhaled Oxygen Concentration--Trokxw915.3 kg (282 lb 12.8 oz)06/30/2025 8:51 AM IUZKnnbhm155.6 cm (5' 11.5 )06/30/2025 8:51 AM EDTBody Mass Index38.9 06/30/2025 8:51 AM EDT Plan of Treatment Health MaintenanceDue DateLast DoneCommentsDepression Crleogmjg35/08/1970Adult BMI Follow Up Plan1976DTaP,Tdap and Td Vaccines (1 - Tdap)1977Fall Risk Wrjbxcdwu61/08/2023Influenza Pinmreu05Adult BMI Screening Tobacco Vhfwisoet88RSV ( or age 60+ yrs) (1 - 1-dose 75+ series)2033Zoster (Shingles) VaccineCompleted 06/13/2019, 04/15/2019 Medical Devices Not on file Insurance Care Teams Team MemberRelationshipSpecialtyStart Date Andres Lentz MD [facility] - [facility]
--- OUTSIDE RECORDS SUMMARY | 2025-10-14 11:05 | XMS_ITS | CCD ---
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 Name Role Phone DR RADHA IVERSON Admitting Unavailable KISHOR, DR GARCIA Attending Unavailable KISHOR, DR GARCIA Referring Unavailable KISHOR, DR GARCIA Primary Care Unavailable KISHOR, DR GARCIA Consulting Unavailable KISHOR, DR GARCIA Admitting Unavailable KISHOR, DR GARCIA Attending Unavailable KISHOR, DR GARCIA Primary Care Unavailable KISHOR, DR GARCIA Consulting Unavailable Radha Iverson MD Primary Care Provider [phone] Berta Lovelace MD Unavailable Berta Rivero OD Unavailable Radha Iverson MD Primary Care Provider [phone] Radha Iverson MD Primary Care Provider [phone] RADHA IVERSON Referring Unavailable STUARTY, RADHA M [...] Unavailable ARIE, MARIO Attending Unavailable REQUEST, IP HAIR SALON MANAGER SERVICE Consulting Unavaila ble REQUEST, IP PHYSICAL THERAPY SERVICE Consulting Unavailable REQUEST, IP OCCUPATIONAL THERAPY SERVICE Consult ing Unavailable PROVIDER, UNKNOWN Admitting Unavailable PROVIDER, UNKNOWN Attending Unavailable LINDSAY RODRIGUEZ Attending Unavailable RADHA IVERSON Referring Unavailable STUARTY, RADHA M Primary Care Unavailable LINDSAY RODRIGUEZ Attending Unavailable STUARTY RADHA M Referring Unavailable HOY, RADHA M Primary Care Unavailable Radha Iverson MD Primary Care Provider [phone] CUCO MARIN Attending Unavailable LIBORIO MIRANDA Attending Unavailable DAVID AVILES Attending Unavailable CUCO MARIN Attending Unavailable BISI CABEZAS Attending Unavailable YOVANI VALDEZ Attending Unavailable YOVANI VALDEZ Attending Unavailable Radha Iverosn Primary Care Physician Karan TAMEZ Attending Unavailable Allergies Allergy ClassificationReported Allergen(s)Allergy TypeDate of OnsetReaction(s) Facility (1 source)Sulfamethoxazole / TrimethoprimDrug Xnviqiw11-92-2308Mmh [facility] Repository (20 sources)Penicillins; Translations: [PENICILLINS]Propensity to adverse rdvupmiiy09-99-2842[facility] (9 sources)PenicillinsPropensity to adverse reactions to yoyd23-40-6555GddRvvvfn [facility] (16 sources)levoFLOXacin; Translations: [LEVOFLOXACIN]Drug Gpwfcfo04-50-5156 [facility] ([facility]Sulfamethoxazole / Trimethoprim; Translations: [SULFAMETHOXAZOLE-TRIMETHOPRIM]Drug Idzdnbb04-94-3582TylijjbzVboZqvqac Health System (10 sources)Clindamycin; Translations: [CLINDAMYCIN]Drug Cjconbb32-81-2106Vmvh, Eruption of skin (disorder)[facility] (1 source)SULFAMETHOXAZOLE W-TRIMETHOPRIM; Translations: [SULFAMETHOXAZOLE W-TRIMETHOPRIM]Propensity to adverse reactions to drug (disorder)72-99-3320[facility] Rep[facility] (2 sources)Penicillin; Translations: [penicillin]Drug AllergyDiarrhea (finding) [facility] (2 sources)Sulfonamide; Translations: [sulfa drugs]Drug allergyunknownFCleveland Clinic (1 source)levoFLOXacin; Translations: [Levaquin][facility] Medications Current Medications MedicationDrug Class(es)DatesSig (Normalized)Sig (Original)albuterol 0.83 mg/ml inhalation solution (20 sources)beta2-Adrenergic AgonistStart: 51-66-6484fmmg 2.5 mg by inhalation every six hoursalbuterol [...] oral tablet (20 sources)Dihydropyridine Calcium Channel BlockerStart: 41-46-2085qmjl 1 tablet by mouth once dailyamLODIPine 5 mg Tab 5 mg = 1 tab(s), Oral, Daily, Refills(s) 0 Start Date: 09/08/25 Status: OrderedMedication Dispense Status: Completed Total Allowed Fills: 1 Fills Dispensed: 0Start: 05-24-2023 End: 41-73-8003wlTVTUFtby (Norvasc) 5 MG tablet 05/24/2023 Activeatorvastatin 10 mg oral tablet (5 sources)HMG-CoA Reductase InhibitorStart: 96-76-6987blfc 1 tablet by mouth at bedtimeatorvastatin (LIPITOR) 10 MG tablet Take 1 Tablet by mouth at bedtime. 05/29/2025 Activeazithromycin 250 mg oral tablet (4 sources)Macrolide AntimicrobialStart: 56-21-1417hktfpyholdni (ZITHROMAX) 250 mg tablet 2 tabs today then 1 tab Orally daily for 5 days 02/12/2025 Active carvedilol 25 mg oral tablet (20 sources)alpha-Adrenergic Lorena, beta-Adrenergic BlockerStart: 09-08-2025 take 1 tablet by mouth twice dailycarvedilol 25 mg Tab 25 mg = 1 tab(s), Oral, BID, Refills(s) 0 Start Date: 09/08/25 Status: OrderedMedication Dispense Status: Completed Total Allowed Fills: 1 Fills Dispensed: 0Start: 67-36-4580krxd 1 tablet by mouth twice dailyCARvedilol (COREG) 12.5 MG tablet Take 1 Tablet by mouth 2 times daily. 05/29/2025 ActiveStart: 04-11-2024 End: 74-15-4126wcfijijwut (Coreg) 25 MG tablet 04/11/2024 ActiveStart: 05-31-2023 End: 40-95-9824tjgk 1 tablet by mouth twice daily at mealtimecarvedilol (Coreg) 12.5 MG tablet TAKE 1 TABLET BY MOUTH TWICE A DAY WITH FOOD FOR 90 DAYS 05/31/2023 03/18/2025 Discontinuedcephalexin 500 mg oral tablet (2 sources)Cephalosporin AntibacterialStart: 95-78-8024foeg 2 tablets by mouth twice dailycephalexin 500 mg tablet 2 tabs Orally bid for 10 days 05/27/2025 Activecholecalciferol 0.125 mg oral capsule (20 sources)Vitamin DStart: 73-52-1394OGM D3 125 MCG (5000 UT) capsule 04/13/2023 ActiveStart: 01-28-1219bpfi 1 capsule by mouth once dailyCVS D3 125 MCG (5000 UT) capsule TAKE 1 CAPSULE BY MOUTH ONCE A DAY DIRECTED 04/13/2023 Activetake 1 tablet by mouth in the morningcholecalciferol, vitamin D3, 5,000 units tablet Take 1 tablet (5,000 Units total) by mouth in the morning. Active clindamycin 300 mg oral capsule (4 sources)Lincosamide AntibacterialStart: 05-19-2025 End: 67-76-4970zvqo 1 capsule by mouth in the morning, [...] 05/29/2025 Activedocusate sodium 50 mg / sennosides, senior living 8.6 mg oral tablet (6 sources)Start: 17-80-4547upde 1 tablet by mouth twice dailySenexon-S oral tablet 1 tab(s), Oral, BID, Refill(s) 0 Start Date: 09/08/25 Status: Ordered Medication Dispense Status: Completed Total Allowed Fills: 1 Fills Dispensed: 0 Start: 42-44-3866wisd 1 tablet by mouth in the morningsennosides-docusate [...] 40 mg oral tablet (20 sources)Loop DiureticStart: 69-23-8699cqon 1 tablet by mouth once dailyLasix 40 mg Tab 40 mg = 1 tab(s), Oral, Daily, Refills(s) 0 Start Date: 09/08/25 Status: Ordered Medication Dispense Status: Completed Total Allowed Fills: 1 Fills Dispensed: 0Start: 65-31-4708jbvpjzcqnd (Lasix) 40 MG tablet 04/13/2023 ActivehydrOXYzine hydrochloride 25 mg oral tablet (2 sources)AntihistamineStart: 85-78-8035qsdv 1 tablet by mouth four times daily as neededhydrOXYzine (ATARAX) 25 mg tablet 1 tablet as needed Orally qid for 10 days 05/27/2025 Activehyoscyamine sulfate 0.125 mg sublingual tablet (20 sources)Start: 65-17-0575xwghqsczqdb (Levsin) 0.125 MG SL tablet 02/20/2024 Activeibuprofen 600 mg oral tablet (20 sources)Nonsteroidal Anti-inflammatory DrugStart: 04-33-9825epax 1 tablet by mouth three times daily as needed for painibuprofen 600 mg Tab 600 mg = 1 tab(s), Oral, TID, PRN as needed for pain, Refills(s) 0 Start Date:09/08/25 Status: Ordered Medication Dispense Status: Completed Total Allowed Fills: 1 Fills Dispensed: 0Start: 84-21-7798zdmz 1 tablet by mouth every eight hours ibuprofen (MOTRIN) 800 mg tablet Take 1 tablet (800 mg total) by mouth every 8 (eight) hours. 30 tablet 05/12/2025 ActiveStart: 67-22-8004yhqy 1 tablet by mouth three times daily at mealtime as neededibuprofen (MOTRIN) 600 mg tablet TAKE 1 TABLET BY MOUTH 3 TIMES A DAY WITH FOOD OR MILK NEEDED 03/24/2025 Activeibuprofen 600 MG tablet every 8 (eight) hours Activeketorolac tromethamine 5 mg/ml ophthalmic solution (1 source)Nonsteroidal Anti-inflammatory Drug, Cyclooxygenase InhibitorStart: 07-08-2024 End: 04-93-4167ommy 1 drop(s) into the eye(s) in the morningketorolac (Acular) 0.5 % ophthalmic solution Indications: Age-related nuclear cataract of both eyes ADMINISTER 1 DROP INTO AFFECTED EYE(S) IN THE MORNING AND 1 DROP BEFORE BEDTIME. 5 mL 1 07/08/2024 08/07/2024 Activelosartan potassium 100 mg oral tablet (20 sources)Angiotensin 2 Receptor BlockerStart: 45-90-0751eucs 1 tablet by mouth once dailylosartan 100 mg Tab 100 mg = 1 tab(s), Oral, Daily, Refills(s) 0 Start Date: 09/08/25 Status: Ordered Medication Dispense Status: Completed Total Allowed Fills: 1 Fills Dispensed: 0Start: 69-45-2693qqis 2 tablets by mouth once dailylosartan (COZAAR) 50 MG tablet Take 2 Tablets by mouth daily. 05/30/2025 ActiveStart: 88-98-0305bqyl 100 mg by mouth once mg, Oral, DAILY, First dose on Mon05/29/25 at 0900, Until Discontinuedlosartan (Cozaar) 100 MG tablet 1 (one) time each day at the same time Activeomeprazole 40 mg delayed release oral capsule (10 sources)Proton Pump InhibitorStart: 05-03-9549hmba 1 capsule by mouth once dailyomeprazole 40 mg Cap-DR 40 mg = 1 cap(s), Oral, Daily, Refills(s) 0 Start Date: 09/08/25 Status: Ordered Medication Dispense Status: Completed Total Allowed Fills: 1 Fills Dispensed: 0Start: 33-03-4626oeboegbfkp (PriLOSEC) 40 mg capsule TAKE 1 CAPSULE BY MOUTH EVERY DAY 30 MINUTES BEFORE MORNING MEAL 04/28/2025 ActiveoxyCODONE hydrochloride 5 mg oral tablet (1 source)Opioid AgonistStart: 05-12-2025 End: 84-16-5088nren 1 tablet by mouth every four hours as needed for pain oxyCODONE (ROXICODONE) 5 mg immediate release tablet Indications: Acute postoperative pain Take 1 tablet (5 mg total) by mouth every 4 (four) hours as needed for pain for up to 3 days. Max Daily Amount: 30 mg 12 tablet 05/12/2025 05/15/2025 ActivepredniSONE 20 mg oral tablet (8 sources)Start: 05-30-2025 End: 35-45-1275gkqm 3 tablets by mouth once daily, then [...] Tablet 05/30/2025 06/18/2025 Active Start: 05-30-2025 End: 43-04-4091unldmsDXKZ (DELTASONE) tabletStart: 05-29-2025 End: 39-09-5634qkud 60 mg by mouth once daily60 mg, Oral, DAILY, First dose on Mon05/29/25 at 1030, Until DiscontinuedStart: 44-08-7270hixxktQLEP (STERAPRED DS) 10 mg tablet pack 5 [...] mg oral tablet (20 sources)HMG-CoA Reductase InhibitorStart: 55-41-3071alit 1 tablet by mouth once daily in the eveningsimvastatin 20 mg Tab 20 mg = 1 tab(s), Oral, qPM, Refills(s) 0 Start Date: 09/08/25 Status: Ordered Medication Dispense Status: Completed Total Allowed Fills: 1 Fills Dispensed: 0Start: 64-54-1361saxb 1 tablet by mouth once dailysimvastatin (Zocor) 20 MG tablet Take 20 mg by mouth Daily 04/13/2023 Activetriamcinolone acetonide 1 mg/ml topical cream (5 sources)CorticosteroidStart: 35-09-5572ibivupjwszlcp 0.1 % cream Apply topically 2 times daily. Apply thin layer to affected area. 454 g 05/29/2025 2:02 PM EDT 05/29/2025 ActiveStart: 42-22-0671jmvwj 1 dose topically twice daily Topical, 2 TIMES DAILY, First dose on Mon05/29/25 at 1030, Until Discontinued Completed/Discontinued Medications MedicationDrug Class(es)DatesSig (Normalized)Sig (Original)acetaminophen 325 mg oral tablet (6 sources)Start: 25-89-3045036 mg, Oral, EVERY 4 HOURS PRN, Starting on Mon05/28/25 at 2154, Until Discontinued, Mild Pain (pain score 1,2,3)Start: 21-70-9502btth 2 tablets by mouth every eight hoursacetaminophen (TYLENOL EXTRA STRENGTH) 500 mg tablet Take 2 tablets (1,000 mg total) by mouth every8 (eight) hours. 30 tablet 05/12/2025 ActivediphenhydrAMINE hydrochloride 25 mg oral capsule (1 source)Histamine-1 Receptor AntagonistStart: 05-28-2025 End: 07-13-7855uuju 1 dose by mouth once25 mg, Oral, Once, 1 dose, On Mon05/28/25 at 1410Start: 05-28-2025 End: 48-47-7673tsbj 1 dose by mouth once25 mg, Oral, Once, 1 dose, [place] Mon05/28/25 [place] [address].4 ml enoxaparin sodium 100 mg/ml prefilled syringe (1 source)Low Molecular Weight HeparinStart: 64-73-8370pkgulc 40 mg by subcutaneous injection twice daily40 mg, Subcutaneous, 2 times daily, First dose on Mon05/28/25 at 2230, Until Discontinuedondansetron 4 mg disintegrating oral tablet (5 sources)Serotonin-3 Receptor AntagonistStart: 02-20-2024 End: 45-07-5554guopsavvmty ODT (Zofran-ODT) 4 MG disintegrating tablet DISSOLVE 1 TABLET ON THE TONGUE EVERY 6 HOURS NEEDED FOR NAUSEA FOR 3 DAYS 02/20/2024 03/18/2025 Discontinuedpantoprazole 40 mg delayed release oral tablet (1 source)Proton Pump InhibitorStart: 88-42-6676xtbe 40 mg by mouth once daily 30 minutes before ixrysonfd27 mg, Oral, DAILY 30 MIN BEFORE BREAKFAST, First dose on Mon05/29/25 at 0830, Until Discontinuedpolyethylene glycol 3350 31726 mg powder for oral solution (1 source)Osmotic LaxativeStart: g, Oral, DAILY, First dose on Mon05/28/25 at 2226, Until Discontinuedpotassium chloride 10 meq oral tablet (20 sources)Start: 19-23-7729dogs 1 tablet by mouth twice dailypotassium chloride 10 mEq ER Tab 10 mEq = 1 tab(s), Oral, BID, Refills(s) 0 Start Date: 09/08/25 Status: Ordered Medication Dispense Status: Completed Total Allowed Fills: 1 Fills Dispensed: 0Start: 79-90-1289lwwj 1 tablet by mouth in the morningpotassium chloride CR (Klor-Con) 10 MEQ ER tablet Take 10 mEq by mouth in the morning and 10 mEq before bedtime. 05/31/2023 Activesennosides, senior living 8.6 mg oral tablet (1 source)Start: 04-57-9440mimq 8.6 mg by mouth once daily8.6 mg, Oral, DAILY, First dose on Mon05/28/25 at 2226, Until DiscontinuedVitamin D 50,000 intl units (1.25 mg) oral capsule (1 source)Start: 12-12-1215jexd 1 capsule by mouth once dailyVitamin D 50,000 intl units (1.25 mg) oral capsule 50,000 International_Unit = 1 cap(s), Oral, Daily, Refills(s) 0 Start Date: 09/08/25 Status: Ordered Medication Dispense Status: Completed Total Allowed Fills: 1 Fills Dispensed: 0 Problems Problem ClassificationProblemDateDocumented DateEpisodic/ChronicCancer of uterus (18 sources)Malignant neoplasm of endometrium of corpus uteri ; Translations: [Malignant neoplasm of endometrium]Onset: 418893-31-4939IiceuopHcpifajk (20 sources)Bilateral age-related nuclear cataracts; Translations: [Age-related nuclear cataract, bilateral]Onset: 086855-50-5786NgklcbiSmuxgnf obstructive pulmonary disease and bronchiectasis (1 source)Pulmonary mkqjgixyk29-22-0172JarwcpnChbuqvcqu of lipid metabolism (1 source)Teocmzzmsxbyrx37-25-2318OyrqhgpV Codes: Adverse effects of medical drugs (1 source)Adverse reaction to drug; Translations: [Adverse effect of unspecified drugs, medicaments and biological substances, initial encounter]05-28-2025 EpisodicEsophageal disorders (1 source)Gastroesophageal reflux bsoimfc86-38-4418MzwwkprIhospdlgp hypertension (1 source)Essential emigeeuvauut49-44-6214OmkodumTcycrfmepj disorders (3 sources)Postmenopausal bleeding; Translations: [Postmenopausal bleeding] 64-53-0719SjtiyilIgrhdtt (1 source)Pain in toe; Translations: [Tinea unguium]33-39-0018Epleuwiq Nutritional deficiencies (1 source)Vitamin D deficiency, unspecified; Translations: [VITAMIN D DEFICIENCY UNSPECIFIED]Onset: 28-55-8939WhchvwvVrhql aftercare (2 sources)Surgical follow-up; Translations: [Encounter for follow-up examination after completed treatment for conditions other than malignant neoplasm]90-81-6164BzolvgxaFdzkq aftercare (2 sources)Postoperative visit; Translations: [Encounter for other specified surgical aftercare]62-90-9368ZxwcjuqeAcxnk aftercare (1 source)Encounter for other specified surgical aftercare; Translations: [Encounter for other specified surgical aftercare]Onset: 38-97-6138TxngpknsMabqw connective tissue disease (2 sources)Pain of toe of left foot; Translations: [Pain in left toe(s)] 80-91-8177DvwtsuaiPmkjj connective tissue disease (1 source)Disorder of musculoskeletal system; Translations: [Other specified disorders of synovium, left ankle and foot]88-07-2451YcxvkrtmFbygh nervous system disorders (1 source)Other acute postprocedural pain; Translations: [Other acute postprocedural pain]Onset: 86-62-2926UjtebuojBqkiy nutritional; endocrine; and metabolic disorders (1 source)Obese class JQY19-84-4559EqsifmzEvtfy screening for suspected conditions (not mental disorders or infectious disease) (1 source)Endometrium thickened; Translations: [Abnormal findings on diagnostic imaging of other specified body structures]05-48-7640WtgcomzJgdgj screening for suspected conditions (not mental disorders or infectious disease) (2 sources)Electrocardiogram abnormal; Translations: [Abnormal electrocardiogram [ECG] [EKG]]Onset: 073456-32-8641AwjqoqsgWegeg skin disorders (4 sources)Ingrowing nail; Translations: [Ingrowing nail]26-59-4042NlfhnnygUxcye skin disorders (8 sources)Eruption; Translations: [Rash and other nonspecific skin eruption] Onset: 062975-56-3207AjepbbryIfddpidc codes; unclassified (8 sources)Obstructive sleep apnea syndrome; Translations: [Obstructive sleep apnea (adult) (pediatric)]Onset: 382486-41-4104RfrnenmIbizhkot codes; unclassified (1 source)Pain, unspecified; Translations: [Pain, unspecified]Onset: 05-25-2025 EpisodicResidual codes; unclassified (1 source)Tobacco rcej36-25-3464SjqhrctrBiuhcyq detachments; defects; vascular occlusion; and retinopathy (20 sources)Epiretinal membrane of left eye; Translations: [Puckering of macula, left eye]Onset: 978296-54-2483WtzhvjiOlnw and subcutaneous tissue infections (4 sources)Abscess of toe of left foot; Translations: [Cutaneous abscess of left foot]42-16-4948RiyuxxrfLjkrieidjdad (2 sources)Patient encounter ouxfzt92-56-5068Ljhvictbkmvo (7 sources)Autogenerated ProblemOnset: 644027-20-8515Xpubwlmxfcle (1 source)ENDOMETRIAL ADENOCARCINOMAOnset: 65-70-9563Kipdhwjiaket (1 source)New PatientOnset: 04-30-2025 Results Test NameValueInterpretationReference RangeFacilityAmbulatory Visit Summaryon 46-29-3629Ghywcxgtwz Visit SummaryAmbulatory Visit Summary DELMIS MTZ :1960 Visit Date:09/17/2025 Ambulatory Visit Instructions Your Diagnosis Screening for malignant neoplasm of colon Your Care Team Attending Physician - DASHAWN LARES, Karan Kim Primary Care Physician - Radha Iverson MD This Is Your Medications List Contact prescribing physician if questions or concerns albuterol (albuterol 0.083% Inh Sharda 3 mL) amlodipine (amLODIPine 5 mg Tab) carvedilol (carvedilol 25 mg Tab) docusate-senna (Senexon-S oral tablet) ergocalciferol (Vitamin D 50,000 intl units (1.25 mg) oral capsule) furosemide (Lasix 40 mg Tab) ibuprofen (ibuprofen 600 mg Tab) losartan (losartan 100 mg Tab) omeprazole (omeprazole 40 mg Cap-DR) potassium chloride (potassium chloride 10 mEq ER Tab) simvastatin (simvastatin 20 mg Tab) Procedures Performed Cataract extraction, Excision of lymph node, ADDY BSO - Total abdominal hysterectomy and bilateral salpingo-oophorectomy. Discharge Vitals Heart Rate (Peripheral) 76 Respiratory Rate 16 Blood Pressure 138/90 Height 180 cm Height 71 in Weight 130 kg Weight 286.601 lb BMI 40.12 Medications What How Much When Instructions Unchanged albuterol (albuterol 0.083% Inh Sharda 3 mL) 3 Milliliter Nebulized inhalation (aerosol) Every 6 hours as needed for Shortness of breath or wheezing Contact prescribing physician if questions or concerns Unchanged amlodipine (amLODIPine 5 mg Tab) 1 Tablets By Mouth Every day Contact prescribing physician if questions or concerns Unchanged carvedilol (carvedilol 25 mg Tab) 1 Tablets By Mouth 2 times a day Contact prescribing physician if questions or concerns Unchanged docusate-senna (Senexon-S oral tablet) 1 Tablets By Mouth 2 times a day Contact prescribing physician if questions or concerns Unchanged ergocalciferol (Vitamin D 50,000 intl units (1.25 mg) oral capsule) 1 Capsules By Mouth Every day Contact prescribing physician if questions or concerns Unchanged furosemide (Lasix 40 mg Tab) 1 Tablets By Mouth Every day Contact prescribing physician if questions or concerns Unchanged ibuprofen (ibuprofen 600 mg Tab) 1 Tablets By Mouth 3 times a day as needed for as neededfor pain Contact prescribing physician if questions or concerns Unchanged losartan (losartan 100 mg Tab) 1 Tablets By Mouth Every day Contact prescribing physicianif questions or concerns Unchanged omeprazole (omeprazole 40 mg Cap-DR) 1 Capsules By Mouth Every day Contact prescribing physician if questions or concerns Unchanged potassium chloride (potassium chloride 10 mEq ER Tab) 1 Tablets By Mouth 2 times a day Contact prescribing physician if questions or concerns Unchanged simvastatin (simvastatin 20 mg Tab) 1 Tablets By Mouth Once a day (in the evening) Contact prescribing physician if questions or concerns Allergies Levaquin (unknown) clindamycin (Rash) penicillin (Diarrhea) sulfa drugs (unknown) Problems Ongoing - Any problem that you are currently receiving treatment for. Class 3 obesity Essential hypertension Gastroesophageal reflux disease Hyperlipidemia Morbid obesity with BMI of 40.0-44.9, adult Obstructive sleep apnea syndrome Pulmonary emphysema Screening for malignant neoplasm of colon Tobacco user Patient Survey You may receive a survey via text or e-mail asking about your office visit. Please share your experience with us by completing your survey. We appreciate your feedback and thank you for choosing us for your care. Patient Portal You may access all of your results and other medical record information on our secure patient portal. If you are not signed up for this yet, please contact [employer] at [phone] to get signed up today. Language Information Language assistance services are available as needed. [facility]Tele[facility]counteron [facility]-2025 [employer] Interface Message TextDiscussed with pt inpatient. [facility] hospital [employer]ation Interface Message Text Situation: Patient returning missed call/Ref 99 Background: [...] D/C paper from ED visit: Clipped from Script:[facility] [email or web address]comation Interface Message TextCalled pt, no answer, lm on to return call to [phone]. See providers note.[facility] CenterHuman Demand Interface Message Apryl Yang MD to Me (Selected Message) 05/30/25 10:56 AM You can let her know that I reordered the prescription with the right amount of tablets - please tell her that if she already filled the first prescription with the 10 tablets to NOT take any extra tablets and to only take the amount needed to complete the written [facility] [email or web address] Interface Message TextSituation: pt returning call, following [...] pt to follow up with pcp regarding prescriptionNormalThe [facility] HospitalBASIC METABOLIC PANELon 44-94-9131Igwph gap [Moles/Vol]15 mmol/YLwgkbb68-67Dnx [facility] SystemComment on above:Performed By: #### YANDEL CAAT #### [facility] [address] [place] [address], [phone] [Mass/Vol]8.9 mg/dLNormal8.6-10.3The [facility] SystemComment on above:Performed By: #### YANDEL ACAT #### [facility] [address] [place] [address], [phone] [Moles/Vol]106 mmol/LZjzobr16-860Zmi [facility] SystemComment on above:Performed By: ###YANDEL COXAT #### [facility] [address] [place] [address], [phone] [Moles/Vol]23 mmol/DGtvvdj62-98Oqm [facility] SystemComment on above:Performed By: #### YANDEL CAAT #### [facility] [address] [place] [address], [phone] [Mass/Vol]0.94 mg/dLNormal0.60-1.20The [facility] SystemComment on above:Performed By: #### YANDEL CAAT #### [facility] [address] [place] [address], [phone] GFR (CKD-EPI)67 mL/min/1.73sqmNormal>=60The [facility] SystemComment on above:Result Comment: 2020 CKD EPI [...] Med 1 Vol. 385 Issue 19 Pages 1730-4023Performed By: #### ROBY, CBCDSAT #### [facility] [address] [place] [address], [phone] [Mass/Vol]130 mg/qQReyf87-623Pyc [facility] SystemComment on above:Performed By: #### ROBY, CBCDSAT #### [facility] [address] [place] [address], [phone] [Moles/Vol]4.2 mmol/LNormal3.5-5.0The [facility]ro[facility] SystemComment on above:Performed By: #### ROBY, CBCDSAT #### [facility] [address] [place] [address], [phone] [Moles/Vol]140 mmol/OMchacy721-402Jqh [facility] SystemComment on above:Performed By: #### ROBY, CBCDSAT #### [facility] [address] [place] [address], [phone] nitrogen [Mass/Vol]23 mg/dLNormal7-25The [facility] HospitalroHealth SystemComment on above:Performed By: #### ROBY, CBCDSAT #### [facility] [address] [place] [address], [address]Remcf metabolic 2000 panelon 30-83-0693Whwcd gap [Moles/Vol]15 mmol/L10 - 20MetroHealthCalcium [Mass/Vol]8.9 mg/dL8.6 [...] Med 2020 Vol. 385 Issue 19 Pages 7230-0387 Glucose [Mass/Vol]130 mg/lOZrmw42 - 109 mg/dLMetroHealthPotassium [Moles/Vol]4.2 mmol/L3.5 - 5.0 mmol/LMetroHealthSodium [Moles/Vol]140 mmol/L136 - 145 mmol/L MetroHealthUrea nitrogen [Mass/Vol]23 mg/dL7 - 25 mg/dLMetroHealthCBC WITH DIFFERENTIALOrdered By: Missy Burgess on 97-04-7046Dqzgwraweoz distribution width (RBC) [Ratio]13.9 %11.5 - 14.5 [...] [#/Vol]19.4 10*3/uLHigh4.5 - 11.5 K/uLMetroHealthCBC WITH DIFFERENTIALon 70-60-3529Eaqvxzditbk distribution width (RBC) [Ratio]13.9 %Qfgwwq88.5-14.5The MetroHealth SystemComment on above: Performed By: #### ROBY CBCZEKEAT #### [facility] [address] [place] [address], [address]Ixfqmtqwuq (Bld) [Volume fraction]36.4 %Bepewb47.0-46.0 The MetroHealth SystemComment on above:Performed By: #### ROBY CBCZEKEAT #### [facility] [address] [place] [address], [address]Tgmutsbjwa (Bld) [Mass/Vol]12.2 g/oJZpujxr25.0-15.0The [facility] HospitalroHealth SystemComment on above:Performed By: #### YANDEL CAAT #### [facility] [address] [place] [address], [address]HEM (RBC) [Entitic mass]28.8 bmXixdbt43.0-34.0The [facility] HospitalroHealth SystemComment on above:Performed By: #### YANDEL CAAT #### [facility] [address] [place] [address], [address]FYIH (RBC) [Mass/Vol]33.5 g/hPFgwipk46.0-35.9The [facility]Health SystemComment on above:Performed By: #### YANDEL CAAT #### [facility] [address] [place] [address], [address]SIP (RBC) [Entitic vol]86 iQLwsmwt90-117Blw [facility] HospitalroHealth SystemComment on above:Performed By: #### YANDEL CAAT #### [facility] [address] [place] [address], [address]Ozxblluu mean volume (Bld) [Entitic vol]9.4 fLNormal 7.5-11.2The [facility]Health SystemComment on above:Performed By: ###YANDEL COXAT #### [facility] [address] [place] [address], [address]Pkanfuoaz (Bld) [#/Vol]196 10*3/sOHjjofl106-220Unl [facility] SystemComment on above:Performed By: #### YANDEL CAAT #### [facility] [address] [place] [address], [address]NPQ (Bld) [#/Vol]4.23 10*6/uLNormal4.00-5.20The [facility]Health SystemComment on above:Performed By: ###YANDEL COXAT #### [facility] [address] [place] [address], [address]DJU (Bld) [#/Vol]19.4 10*3/uLHigh4.5-11.5The [facility]Health SystemComment on above:Performed By: ###YANDEL COXAT #### [facility] [address] [place] [address], [address]PETGNEVC KINASEon 67-64-1873XS [Catalytic activity/Vol] 96 U/LMetroHealthCK [Catalytic activity/Vol]96 U/EFccign36-341Ymg [facility] HospitalroHealth SystemComment on above:Performed By: ###YANDEL COXAT #### [facility] [address] [place] [address], [address]QJR 12 LEAD - PERFORMon 93-90-5379DfsfffxrfCjefeu sinus rhythm with sinus arrhythmia Low voltage QRS, consider pulmonary disease, pericardial effusion, or normal variant Nonspecific ST and T wave abnormality Abnormal ECG No previous ECGs available Confirmed by MARCELLA SHARIF ([id number]) on 05/29/2025 8:17:29 AM MetroHealthP wave Atrium by EMV81KSAVzapcBzpkqkD wave fmup44wvffebvUmcdiJeluxeQ- R Njuzgrto738 msMetroHealthQ-T kheuofio660 msMetroHealthQ-T interval corrected 419 msMetroHealthQRS rcot72ecwwbwiDzcsyFwybwbQSR idosvumy45 msMetroHealthT wave hdaw57geaccjwMynwpXmibfaHruqqLcpxqyJPQ Ab IA Qn (S)on 98-33-9539EPW Ab Ql (S) Non-ReactiveNonreactiveMetroHealthInterpretation and review of laboratory resultsNormalMetroHealthMetroHealthHEPATIC FUNCTION PANELon 85-09-7613Qbyttmh [Mass/Vol]3.7 g/dL3.5 - 5.7 g/dLMetroHealthALP [Catalytic activity/Vol]99 U/L MetroHealthALT [Catalytic activity/Vol]61 U/LHighMetroHealthAST [Catalytic activity/Vol]19 U/LMetroHealthBilirubin [Mass/Vol]0.6 mg/dL0.3 - 1.0 mg/dL MetroHealthBilirubin.direct [Mass/Vol]0.12 mg/dL0.03 - 0.18 mg/dLMetroHealth Protein [Mass/Vol]6 g/dL6.0 - 8.3 g/dLMetroHealthAlbumin [Mass/Vol]3.7 g/dL Normal3.5-5.7The [facility]Health SystemComment on above:Performed By: #### LUCIE CA #### [facility] [address] [place] [address], [address]YYW35 IU/OStadie10-192Eot [facility] HospitalroHealth SystemComment on above:Performed By: #### YANDEL CAAT #### [facility] [address] [place] [address], [address]AJN [Catalytic activity/Vol]61 U/LHigh7-52The [facility]Health SystemComment on above:Performed By: #### YANDEL CAAT #### [facility] [address] [place] [address], [address]VVS [Catalytic activity/Vol]19 U/PXqxuic73-01Mdd [facility] SystemComment on above:Performed By: #### YANDEL CAAT #### [facility] [address] [place] [address], [address]Czbgdzfmr [Mass/Vol]0.6 mg/dLNormal0.3-1.0The [facility] HospitalroHealth SystemComment on above:Performed By: #### LUCIE CA #### [facility] [address] [place] [address], [address]Dvfwzhsxd.direct [Mass/Vol]0.12 mg/dLNormal0.03-0.18The [facility] HospitalroHealth SystemComment on above:Performed By: #### LUCIE CA #### [facility] [address] [place] [address], [address]Hhdcwiy [Mass/Vol]6.0 g/dLNormal6.0-8.3The [facility] HospitalroHealth SystemComment on above:Performed By: #### LUCIE CA #### [facility] [address] [place] [address], [address]MBAJKGFCS B CORE ANTIBODYon 01-56-6572IVG core Ab Ql (S)Non-ReactiveNonreactiveMetroHealthInterpretation and review of laboratory resultsNormalMetroHealthMetroHealthCORENon-ReactiveNormalNonreactiveThe [facility] HospitalroHealth SystemComment on above:Performed By: #### YANDEL CAAT #### [facility] [address] [place] [address], [address]SHEVJIDVU B SURFACE ANTIGENon 89-16-2282FWW surface Ag Ql (S)Nqf-CsctfwpyLfh-QbtwhxnfMexqkRpaszqCalpvjhrflwoax and review of laboratory ysgmvfuHdcsgyAplqoCxswbyQhfnbLngaevRXXZCMve-GbwxiokcKaseglXdb-OojrckieEow [facility] HospitalroHealth SystemComment on above:Performed By: #### LUCIE CA #### [facility] [address] [place] [address], [address]OLDGTWUGS C ANTIBODYon 28-78-1144FAVRsf-ReactiveNormal NonreactiveThe [facility] HospitalroMercy Health [facility] SystemComment on above:Performed By: #### HCV #### [facility] [address] [place] [address], [address]MJLACB DIFF AND MORPHon 17-26-7466CVS97.23 K/uL MetroHealthBand form neutrophils/100 WBC (Bld)1 %NINF [...] %High31.0 - 76.0 %MetroHealthRBC morphology finding Nom (Bld)XuiewqUmvrnBemvllUKM35.23 K/uLNormSt. Elizabeth Hospitale [facility] SystemComment on above:Performed By: #### YANDEL CAAT #### [facility] [address] [place] [address], [address]HYWSA % BY MANUAL COUNT1 %Normal<=10The [facility] SystemComment on above:Performed By: #### YANDEL CAAT #### [facility] [address] [place] [address], [address]KGWLP ABS BY MANUAL COUNT0.19 K/uLHigh<0.01The [facility] SystemComment on above:Performed By: #### YANDEL CAAT #### [facility] [address] [place] [address], [address]NBHOY COUNTED TOTAL # IN SQUQY485OxqhpdGlkDiley Ridge Medical Center SystemComment on above:Performed By: #### YANDEL CAAT #### [facility] [address] [place] [address], [address]OQYYDNIGOXM % BY MANUAL COUNT4.0 %Low24.0-44.0The [facility] SystemComment on above:Performed By: #### YANDEL CAAT #### [facility] [address] [place] [address], [address]QXZXRRBZIPA ABS BY MANUAL COUNT0.78 K/uLLow1.00-4.80The [facility] SystemComment on above:Performed By: #### ROBY CBCDSAT #### [facility] [address] [place] [address], [address]BRIXZXBRW % BY MANUAL COUNT2.0 %Normal2.0-11.0The [facility] SystemComment on above:Performed By: #### ROBY CBCDSAT #### [facility] [address] [place] [address], [address]NHZIWLNBU ABS BY MANUAL COUNT0.39 K/uLNormal0.20-1.00 The [facility] SystemComment on above:Performed By: #### ROBY CBCDSAT #### [facility] [address] [place] [address], [address]FZBMEGEANOH % BY MANUAL COUNT93.0 %High31.0-76.0The [facility] SystemComment on above:Performed By: #### ROBY CBCDSAT #### [facility] [address] [place] [address], [address]OQHDCNQMDEO ABS BY MANUAL COUNT18.04 K/uLHigh1.50-8.00 The [facility] SystemComment on above:Performed By: #### ROBY CBCDSAT #### [facility] [address] [place] [address], [address]RAQ MORPHOLOGYNormalNormalThe [facility] SystemComment on above:Performed By: #### ROBY CBCDSAT #### [facility] [address] [place] [address], [address]Cc Panel InformationOrdered By: Missy Burgess on 23-09-6398Grwqkztouycxiq and review of laboratory resultsAbnormalMetroHealth [facility]ronNo Panel Informationon 58-68-6044Vsvurebqnkjcli and review of laboratory resultsAbnormalMetroHealthInterpretation and review of laboratory resultsNormalMetroHealthMetroHealthPROTHROMBIN TIME AND INRon 11-54-3309CVK Coag (PPP) [Relative time]1.31 {INR}High0.90 - 1.10MetroHealthInterpretation and review of laboratory resultsAbnormalMetroHealthPT Coag (PPP) [Time]14.7 sHigh MetroHealthMetroHealthINR Coag (PPP) [Relative time]1.31 {INR}High0.90-1.10The [facility] SystemComment on above:Performed By: #### PT #### [facility] [address] [place], [address]TV Coag (PPP) [Time]14.7 sHigh9.7-12.9The [facility] SystemComment on above:Performed By: #### PT #### [facility] [address] [place], [address]Urhpbxjb Noteson 09-80-1839Xqttdxopiuzyb Authentication Interface Message TextStepdown Unit ATTENDING NOTE MARIO ENGEL MD - PIN [id number] 65 year old female admitted 05/28/2025 with [...] recommended sleep study. Patient declines Preferred Language: Israeli I saw and evaluated the patient. I [...] safety issues at home Mario Engel MD S Faculty, Pulmonary, Critical Care and Sleep Medicine The [facility] ABIM Diplomate in Pulmonary, Critical Care and Sleep MedicineNormSt. Elizabeth Hospitale [facility] HospitalroGroupTie SystemTelephone Encounteron 86-25-1837Lpfznmbcpuopj Authentication Interface Message Textpatient is calling to [...] as well as a plan of action.NormalThe [facility]Health SystemURIC ACIDon 77-31-8901Gxeqa [Mass/Vol]5.3 mg/dL2.3 - 6.6 mg/dLMetroHealthUrate [Mass/Vol]5.3 mg/dLNormal2.3-6.6The [facility] HospitalroGroupTie SystemComment on above:Performed By: #### ROBY, CBCDSAT #### [facility] [address] [place] [address], [address]LTRZJPEXPQ WITH REFLEX CULTURE PERFORMABLEon 05-29-2025 Appearance (U)ClearClearMetroHealthBilirubin [...] for UTI around 50%) MetroHealthMetroHealthGlucose Ql (U)NegativeNormalNegativeThe [facility] System Comment on above:Order Comment: A negative [...] value for UTI around 50%)Performed By: #### MDIFF, CBCDSAT #### [facility] [address] [place] [address], [address]Fwxnefg (U) [Mass/Vol]10 mg/dLNormalNegativeThe [facility] SystemComment on above:Order Comment: A negative leukocyte [...] #### LUCIE CA #### [facility] [address] [place] [address], [address]AXGVOFAY RIFNXWWPOI48-87Qlscibdv4-89Ehz [facility] SystemComment on above:Order Comment: A negative leukocyte [...] around 50%)Performed By: #### LUCIE CA #### [facility] [address] [place] [address], [address]G APPEARClearNormalClearThe [facility] SystemComment on above:Order Comment: A negative leukocyte [...] around 50%)Performed By: #### LUCIE CA #### [facility] [address] [place] [address], [address]V BILINegativeNormalNegativeThe [facility] System Comment on above:Order Comment: A negative [...] #### LUCIE CA #### [facility] [address] [place] [address], [address]S BLOODNegativeNormalNegativeEncompass Braintree Rehabilitation HospitalroMer[facility] Health St[facility] System Comment on above:Order Comment: A [...] for UTI around 50%)Performed By: #### ROBY, YANDELAT #### [facility] [address] [place] [address], [address]C COLORYellowNormalColorlessEncompass Braintree Rehabilitation HospitalroMer[facility] Health St[facility] System Comment on above:Order Comment: A [...] around 50%)Performed By: #### ROBY, CBCZEKEAT #### [facility] [address] [place] [address], [address]Z KETONENegativeNormalNegativeThe [facility] HospitalroMer[facility] Health St[facility] System Comment on above:Order Comment: A [...] #### ROBY, LUCIE #### [facility] [address] [place] [address], [address]S LEUKPositiveAbnormalNegativeMercy Health St. [facility] System Comment on above:Order Comment: A negative [...] further testing for pyuria.Performed By: #### ROBY, LUCIE #### [facility] [address] [place] [address], [address]R MUCOUSPresentNormalThe [facility] SystemComment on above:Order Comment: A negative leukocyte [...] #### ROBY, LUCIE #### [facility] [address] [place] [address], [address]B NITRITENegativeNormalNegativeMercy Health St. [facility] System Comment on above:Order Comment: A negative [...] #### LUCIE CA #### [facility] [address] [place] [address], [address]A PH5.5Vvldtf4.0-8.0The [facility] SystemComment on above:Order Comment: A negative leukocyte [...] around 50%)Performed By: #### LUCIE CA #### [facility] [address] [place] [address], RBCNone SeenNormal0-2The [facility] SystemComment on above:Order Comment: A negative leukocyte [...] #### LUCIE CA #### [facility] [address] [place] [address], SG1.025Normal<=1.030The [facility] SystemComment on above:Order Comment: A negative leukocyte [...] #### ROBY, LUCIE #### [facility] [address] [place] [address], [address]N UROBILINegativeNormalNegativeThe [facility] System Comment on above:Order Comment: A negative [...] around 50%)Performed By: #### LUCIE CA #### [facility] [address] [place] [address], [address]L AIO09-174Lcbmfuwm3-9Rmn [facility] SystemComment on above:Order Comment: A negative leukocyte [...] predictive value for UTI around 50%)Performed By: ##LUCIE GONZALEZ #### [facility] [address] [place] [address], [address]LRVHN CULTUREon 47-40-2041Tvjonied identified Cx Nom (U)C URINE: 1,000 - 10,000 CFU/ml No significant growth; skin/urogenital contamination presentNormalThe [facility] SystemComment on above:Performed By: #### MDIFF, CBCDSAT #### [facility] [address] [place] [address], [address]DKHIU METABOLIC PANELon 25-48-9645Ecsvt gap [Moles/Vol] 14 mmol/FHttlwq87-64Sgh [facility] SystemComment on above:Performed By: #### CH8, CRP #### [facility] [address] [place] [address], [address]Zsdnfju [Mass/Vol]8.8 mg/dLNormal8.6-10.3The [facility] HospitalroHealth SystemComment on above:Performed By: #### CH8, CRP #### [facility] [address] [place] [address], [address]Pclcsvpj [Moles/Vol]105 mmol/BGucqdq10-949Boq [facility]roHealth SystemComment on above:Performed By: #### CH8, CRP #### [facility] [address] [place] [address], [address]OH6 [Moles/Vol]23 mmol/PGmtfod87-64Mab [facility] HospitalroHealth SystemComment on above:Performed By: #### CH8, CRP #### [facility] [address] [place] [address], [address]Xjitnthqwi [Mass/Vol]0.95 mg/dLNormal0.60-1.20The [facility] SystemComment on above:Performed By: #### CH8, CRP #### [facility] [address] [place] [address], [address]MMOQFTWKL GFR (CKD-EPI)66 mL/min/1.73sqmNormal>=60The [facility] SystemComment on above:Result Comment: 2020 CKD EPI Equation using Creatinine without Race Comment: Estimated glomerular filtration rate (eGFR) is calculated without a race coefficient. Values should be interpreted in the context of the patient's full clinical presentation. Reference: 1. Grey Garsia, Ryland M, Krista GUSTAFSON, et al.. A Unifying Approach for GFR Estimation: Recommendations of the NKF-ASN Task Force on Reassessing the Inclusion of Race in Diagnosing Kidney Disease. AmericanJournal of Kidney Diseases 2022;79(2):268-88.e1. 2. N Engl J Med 1 Vol. 385 Issue 19 Pages 0408-8459Performed By: #### CH8, CRP #### [facility] [address] [place] [address], [address]Hmkajhq [Mass/Vol]151 mg/oPPipd58-422Xas [facility] SystemComment on above:Performed By: #### CH8, CRP #### [facility] [address] [place] [address], [address]Psgerhusf [Moles/Vol]4.4 mmol/LNormal3.5-5.0The [facility] SystemComment on above:Performed By: #### CH8, CRP #### [facility] [address] [place] [address], [address]Lamqrt [Moles/Vol]138 mmol/ZEbcbxg957-509Fap [facility] SystemComment on above:Performed By: #### CH8, CRP #### [facility] [address] [place] [address], [address]Vbhe nitrogen [Mass/Vol]23 mg/dLNormal7-25The [facility] SystemComment on above:Performed By: #### CH8, CRP #### [facility] [address] [place] [address], [address]Yjuet gap [Moles/Vol]16 mmol/VSiytcc11-13Ukm [facility] SystemComment on above:Performed By: #### HEPATIC, CH8 #### [facility] [address] [place] [address], [address]Lyvwrqd [Mass/Vol]8.7 mg/dLNormal8.6-10.3The [facility] SystemComment on above:Performed By: #### HEPATIC, CH8 #### [facility] [address] [place] [address], [address]Lolrfbtb [Moles/Vol]104 mmol/FEidtku07-938Fcy [facility] SystemComment on above:Performed By: #### HEPATIC, CH8 #### [facility] [address] [place] [address], [address]JH4 [Moles/Vol]23 mmol/TVhyyxw10-10Scc [facility] SystemComment on above:Performed By: #### HEPATIC, CH8 #### [facility] [address] [place] [address], [address]Uqfcwackey [Mass/Vol]1.09 mg/dLNormal0.60-1.20The [facility] SystemComment on above:Result Comment: Grossly icteric; may falsely decrease creatininePerformed By: #### HEPATIC, CH8 #### [facility] [address] [place], [address]KFXPMOEOF GFR (CKD-EPI)56 mL/min/1.73sqmLow>=60The [facility] HospitalroHealth SystemComment on above:Result Comment: 2020 CKD EPI [...] Med 1 Vol. 385 Issue 19 Pages 0655-6878Performed By: #### HEPATIC, CH8 #### [facility] [address] [place], [address]Jrcxteu [Mass/Vol]148 mg/fPJlpc09-873Okx [facility]roHealth SystemComment on above:Performed By: #### HEPATIC, CH8 #### [facility] [address] [place], [address]Wnfdxuplu [Moles/Vol]8.5 mmol/LCritically high3.5-5.0 The [facility] HospitalroHealth SystemComment on above:Result Comment: Hemolysis present Performed By: #### HEPATIC, CH8 #### [facility] [address] [place], [address]Jntfgn [Moles/Vol]134 mmol/YHwt926-047Eru [facility] SystemComment on above:Performed By: #### HEPATIC, CH8 #### [facility] [address] [place], [address]Xoig nitrogen [Mass/Vol]24 mg/dLNormal7-25The [facility] SystemComment on above:Performed By: #### HEPATIC, CH8 #### [facility] [address] [place], [address]Ldcbo metabolic 2000 panelOrdered By: Shawna Baldwin on 07-07-9384Rdroc gap [Moles/Vol]14 mmol/L10 - 20MetroHealthCalcium [Mass/Vol]8.8 mg/dL8.6 [...] Med 2021 Vol. 385 Issue 19 Pages 7039-8566 Glucose [Mass/Vol]151 mg/nEEpae92 - 109 mg/dLMetroHealthInterpretation and review of laboratory resultsAbnormalMetroHealthPotassium [Moles/Vol]4.4 mmol/L 3.5 - 5.0 mmol/LMetroHealthSodium [Moles/Vol]138 mmol/L136 - 145 mmol/L MetroHealthUrea nitrogen [Mass/Vol]23 mg/dL7 - 25 mg/dLMetroHealthMetroHealth Basic metabolic 2000 panelOrdered By: Leno Gunn on 53-58-8897Njoeu gap [Moles/Vol]16 mmol/L10 - 20MetroHealthCalcium [Mass/Vol]8.7 mg/dL8.6 [...] Med 2020 Vol. 385 Issue 19 Pages 9229-3363 Glucose [Mass/Vol]148 mg/pGYcnj21 - 109 mg/dLMetroHealthInterpretation and review of laboratory resultsAbnormalMetroHealthPotassium [Moles/Vol]8.5 mmol/L Critically high3.5 - 5.0 mmol/LMetroHealthComment on above:Hemolysis present Sodium [Moles/Vol]134 mmol/OGfv990 - 145 mmol/LMetroHealthUrea nitrogen [Mass/Vol]24 mg/dL7 - 25 mg/dLMetroHealthMetroHealthC-REACTIVE PROTEINon 72-15-2956XNT [Mass/Vol]4.5 mg/dLHighNINF - 0.5 mg/dLMetroHealthInterpretation and review of laboratory resultsAbnormalMetroHealthMetroHealthCRP4.5 mg/dLHigh <0.5The [facility] SystemComment on above:Performed By: #### CH8, CRP #### [facility] [address] [place], [address]DIT WITH DIFFERENTIALon 74-66-4198Dzvcasutu (Bld) [#/Vol]0.02 10*3/uL0.00 - 0.20 K/uLMetroHealthBasophils/100 WBC [...] 8.00 K/uLMetroHealthNeutrophils/100 WBC (Bld)94.1 %High31.0 - 76.0 %[facility] Platelet mean volume (Bld) [Entitic vol]9.4 fL7.5 - 11.2 fLMetroHealthPlatelets (Bld) [#/Vol]200 10*3/uL150 - 400 K/uLMetroHealthRBC (Bld) [#/Vol]4.33 10*6/uL MetroHealthWBC (Bld) [#/Vol]19.4 10*3/uLHigh4.5 - 11.5 K/uLMetroHealth MetroHealthBasophils (Bld) [#/Vol]0.02 10*3/uLNormal0.00-0.20The [facility] HospitalroMer[facility] SystemComment on above:Performed By: #### CH8, CRP #### [facility] [address] [place] [address], [address]Mtmntkwpk/100 WBC (Bld)0.1 %Normal<=1.9The [facility] SystemComment on above:Performed By: #### CH8, CRP #### [facility] [address] [place] [address], [address]Xwrbymslksg (Bld) [#/Vol]0.09 10*3/uLNormal0.00-0.70The [facility] SystemComment on above:Performed By: #### CH8, CRP #### [facility] [address] [place] [address], [address]Hbapgoigdof/100 WBC (Bld)0.5 %Normal0.1-4.0The [facility] SystemComment on above:Performed By: #### CH8, CRP #### [facility] [address] [place] [address], [phone] distribution width (RBC) [Ratio]14.3 % Fcvwcn53.5-14.5The [facility] SystemComment on above:Performed By: #### CH8, CRP #### [facility] [address] [place] [address], [phone] (Bld) [Volume fraction]37.4 %Ebpyay42.0-46.0 [facility] SystemComment on above:Performed By: #### CH8, CRP #### [facility] [address] [place] [address], [phone] (Bld) [Mass/Vol]12.4 g/sQDbzmjg80.0-15.0The [facility] SystemComment on above:Performed By: #### CH8, CRP #### [facility] [address] [place], [place] [address], [address]Dydpkssfsyq (Bld) [#/Vol]0.59 10*3/uLLow1.00-4.80The [facility]xton HospitalroHealth SystemComment on above:Performed By: #### CH8, CRP #### [facility] [address] [place] [address], [address]Caeaejuahxv/100 WBC (Bld)3.1 %Low24.0-44.0The [facility] HospitalroHealth SystemComment on above:Performed By: #### CH8, CRP #### [facility] [address] [place] [address], [address]HGB (RBC) [Entitic mass]28.7 chDmhxir23.0-34.0The [facility] HospitalHealth SystemComment on above:Performed By: #### CH8, CRP #### [facility] [address] [place] [address], [address]XKVS (RBC) [Mass/Vol]33.3 g/oSCufgib65.0-35.9The [facility] HospitalroHealth SystemComment on above:Performed By: #### CH8, CRP #### [facility] [address] [place] [address], [address]NVE (RBC) [Entitic vol]86 mDVfkegx13-722Sqd [facility] HospitalroHealth SystemComment on above:Performed By: #### CH8, CRP #### [facility] [address] [place] [address], [address]TWGITYEQ DISTRIBUTION JRXSM92Ccih<=20The MetroHealth SystemComment on above:Performed By: #### CH8, CRP #### [facility] [address] [place] [address], [address]Xadovdish (Bld) [#/Vol]0.45 10*3/uLNormal0.20-1.00The MetroHealth SystemComment on above:Performed By: #### CH8, CRP #### [facility] [address] [place] [address], [address]Nlwfszdie/100 WBC (Bld)2.3 %Normal2.0-11.0The MetroHealth SystemComment on above:Performed By: #### CH8, CRP #### [facility] [address] [place] [address], [address]Brejtqyqvff (Bld) [#/Vol]18.20 10*3/uLHigh1.50-8.00The [facility] HospitalroHealth SystemComment on above:Performed By: #### CH8, CRP #### [facility] [address] [place] [address], [address]Lhxnjebgycd/100 WBC (Bld)94.1 %High31.0-76.0The [facility] HospitalroHealth SystemComment on above:Performed By: #### CH8, CRP #### [facility] [address] [place] [address], [address]Eptrazug mean volume (Bld) [Entitic vol]9.4 fLNormal 7.5-11.2The [facility] HospitalroHealth SystemComment on above:Performed By: #### CH8, CRP #### [facility] [address] [place] [address], [address]Fjdaxrggm (Bld) [#/Vol]200 10*3/aDImxblv799-599Mrh [facility] HospitalroHealth SystemComment on above:Performed By: #### CH8, CRP #### [facility] [address] [place] [address], [address]MLT (Bld) [#/Vol]4.33 10*6/uLNormal4.00-5.20The MetroHealth SystemComment on above:Performed By: #### CH8, CRP #### [facility] [address] [place] [address], [address]QEG (Bld) [#/Vol]19.4 10*3/uLHigh4.5-11.5The [facility] HospitalroHealth SystemComment on above:Performed By: #### CH8, CRP #### [facility] [address] [place] [address], [address]QHL panel Auto (Bld)Ordered By: Valente Spain on 05-79-3193Mperdpzpjpksrx and review of laboratory resultsAbnormalMetroHealth MetroHealthCOMPLETE BLOOD COUNTOrdered By: Valente Spain on 05-28-2025 Erythrocyte distribution width (RBC) [Ratio]14.2 %Hndytk70.5-14.5[facility] Comment on above:Performed By: #### CBC #### [facility] [address] [place] [address], [address]Wpcgxkjekx (Bld) [Volume fraction]35.9 %Low36.0-46.0 MetroHealthComment on above:Performed By: #### CBC #### [facility] [address] [place] [address], [address]Ahryysoqhy (Bld) [Mass/Vol]12.8 g/zWQjnlpi04.0-15.0 MetroHealthComment on above:Performed By: #### CBC #### [facility] [address] [place] [address], [address]DEX (RBC) [Entitic mass]30.6 ojJxpktl01.0-34.0 MetroHealthComment on above:Performed By: #### CBC #### [facility] [address] [place] [address], [address]OCKQ (RBC) [Mass/Vol]35.6 g/iESmtyhm86.0-35.9 MetroHealthComment on above:Performed By: #### CBC #### [facility] [address] [place] [address], [address]WVF (RBC) [Entitic vol]86 wASircpv28-766SncubTmtcwa Comment on above:Performed By: #### CBC #### [facility] [address] [place] [address], [address]Mgghnhmg mean volume (Bld) [Entitic vol]8.9 fLNormal 7.5-11.2MetroHealthComment on above:Performed By: #### CBC #### S PATH[facility] LABORATORY [address] [place], [address]Yrhvswzpg (Bld) [#/Vol]191 10*3/aEHxluvq640-426 MetroHealthComment on above:Performed By: #### CBC #### S [facility] [address] [place], [address]LEK (Bld) [#/Vol]4.17 10*6/uLNormal4.00-5.20[facility] Comment on above:Performed By: #### CBC #### S [facility] [address] [place], [address]BFX (Bld) [#/Vol]22.2 10*3/uLHigh4.5-11.5[facility] Comment on above:Performed By: #### CBC #### [facility] [address] [place], [address]Wieaxbmelp 49-65-8903Npjanaqddybtm Authentication Interface Message TextDermatology Inpatient Consult Attending: Dr. Mann Date of Service: 05/28/2025 Referred by: No referring provider defined for this encounter. Clinical Question: diffuse eruption HPI Delmis Mtz is a 65 year old female with a PMHx significant for HTN, HLD, GERD who presented to [facility] with diffuse rash. Pt had hysterectomy for [...] and 50mg this morning. Pt sent to [facility] today by outside recycling manager to r/o SJS. Rash is pruritic/burning but is not painful or tender. Pt does not have blisters or erosions. Does not note ocular, oral, or urogenital symptoms. PMHx/Shx/FHx Reviewed in [facility], significant as above ROS: As noted [...] Pertinent Labs, imaging, and/or pathology: Reviewed in [facility], significant for: WBC 19.4 CRP 4.5 [...] loredo portions of the procedure. Mayra Garza MDOhioHealth Hardin Memorial HospitalED Noteson 05-28-2025 [employer] Authentication Interface Message TextDr. Ro CAMARENA notified of critical POTASSIUM value of 8.5 (HEMOLYZED). Hard copy of results given to Dr. Ro CAMARENA. Latonya Norton, [facility] Provider Noteson 05-28-2025 [employer] Authentication Interface Message Text Attestation signed by [...] Monday AND Monday. Monday started prednisone. Seen recycling manager at [facility] in [place] today AND sent here for rustam sewell Brick Tender: not needed - patient preferred language is Israeli. The history is provided by the Patient. [...] reviewed and incorporated. Discussion with External Provider: Sign Installer from derm service pending final recs. Medication [...] not targetoid. Pityriasis less likely given no [place] patch, no Thong tree distribution, nonpruritic. Viral exanthem less likely given no aches, no fever. Zoster less likely given no vesicular lesions, nonderma (more content not included)...Normal The [facility]e HospitalGroupTie SystemERYTHROCYTE SEDIMENTATION RATEOrdered By: Madhuri Esposito on 86-31-4040ZIP (Bld) [Velocity]22 mm/hNINFMetroHealthInterpretation and review of laboratory resultsNormalMetroHealthMetroHealthERYTHROCYTE SEDIMENTATION RATEon 90-13-7994YXE (Bld) [Velocity]22 mm/hNormal<=30The [facility] HospitalGroupTie SystemComment on above:Performed By: #### CH8, CRP #### [facility] [address] [place] [address], [address]L AND Simeon 92-58-3834Ziriomdekpvdo Authentication Interface Message [facility] Step Down Unit - H AND P Patient: Delmis Mtz : 1960 Sex: female Room: [place] [address] Admission: 05/28/2025 Today: 05/28/2025 (Length of stay: 1 day(s)) HISTORY OF PRESENT ILLNESS: CHIEF COMPLAINT: Chief Complaint Patient presents with Generalized redness/erythema/rash Started clindamycin on 05/19. Rash all over body Monday morning. Stopped clindamycin Monday night. Saw doctor on Monday AND received cortisone shot Monday AND Monday. Monday started prednisone. Seen recycling manager at [facility] in [place] today AND sent here for rustam sewell [...] She was in the Derm clinic at [facility] in [place] and sent for concerns of SJS. Pt [...] vomiting, new abdominal pain (Laparoscopic sites are crystalizer tender, but C/D/I), headache, dysphagia, and blurry [...] acute radiographic abnormality identified. - Interventions: - Kashky -, derm consult, SDU admission, DDX: DRESS [...] Chest x-ray was last done on 05/28/2025 [place] (more content not included)...NormalThe MetroHealth SystemHEPATIC FUNCTION PANELon 55-54-6673Dmxpsir [Mass/Vol]4.1 g/dL3.5 - 5.7 g/dLMetroHealth ALP [Catalytic activity/Vol]105 U/LHighMetroHealthALT [Catalytic activity/Vol]79 U/LHighMetroHealthAST [Catalytic activity/Vol]72 U/LHighMetroHealthComment on above:Hemolysis presentBilirubin [Mass/Vol]0.7 mg/dL0.3 - 1.0 mg/dLMetroHealth Bilirubin.direct [Mass/Vol]mg/dL0.03 - 0.18 mg/dLMetroHealthInterpretation and review of laboratory resultsAbnormalMetroHealthProtein [Mass/Vol]6.9 g/dL6.0 - 8.3 g/dLMetroHealthMetroHealthAlbumin [Mass/Vol]4.1 g/dLNormal3.5-5.7The MetroHealth SystemComment on above:Performed By: #### HEPATIC, CH8 #### [facility] [address] [place] [address], [phone] IU/EQhdg91-197Hky [facility] HospitalroHealth SystemComment on above:Performed By: #### HEPATIC, CH8 #### [facility] [address] [place] [address], [address]KTD [Catalytic activity/Vol]79 U/LHigh7-52The [facility] HospitalroHealth SystemComment on above:Performed By: #### HEPATIC, CH8 #### [facility] [address] [place] [address], [address]OAI [Catalytic activity/Vol]72 U/NKuxm96-65Hxm [facility] HospitalroHealth SystemComment on above:Result Comment: Hemolysis presentPerformed By: #### HEPATIC, CH8 #### S [facility] [address] [place] [address], [address]Iituwqzcv [Mass/Vol]0.7 mg/dLNormal0.3-1.0The [facility] HospitalHealth SystemComment on above:Performed By: #### HEPATIC, CH8 #### [facility] [address] [place] [address], [address]BQGS< 0.33Avchyi0.03-0.18The [facility] HospitalroHealth SystemComment on above:Performed By: #### HEPATIC, CH8 #### [facility] [address] [place] [address], [address]Ozfrwwu [Mass/Vol]6.9 g/dLNormal6.0-8.3The [facility] HospitalroHealth SystemComment on above:Performed By: #### HEPATIC, CH8 #### [facility] [address] [place] [address], [address]DWMZNO ACIDOrdered By: Destiny Myles on 05-28-2025 Interpretation and review of laboratory resultsAbnormalMetroHealthLactate [Moles/Vol]2.1 mmol/LHigh0.5 - 1.6 mmol/LMetroHealthThis test was developed, and its performance characteristics determined by the Department of Pathology of [facility]. It has not been cleared or approved by the FDA. This test is used forclinical purposes only.[facility] HospitalroMercy Health St[facility] HospitalMetroHealthLACTIC ACIDon 00-36-1798QV LACT2.1 mmol/LHigh0.5-1.6The [facility] HospitalGroupTie SystemComment on above: Order Comment: This test was developed, and its performance characteristics determined by the Department of Pathology of [facility]. It has not been cleared or approved by the FDA. This test is used for clinical purposes only.Performed By: #### LACT #### [facility] [address] [place], [address]Vulkrcjn Noteson 29-70-4196Txnstpuczendc Authentication Interface Message TextInternal Medicine Long Term Plan Note Patient: Delmis Mtz Admission Date: [...] MD Internal Medicine Resident PGY-2 Available via [employer] Subjective: HPI: Per patient, Noticed rash started 05/24/25 from lower abdomen, but liekly also started from back that she did not initially notice, then spread all over her body including face and lower extremities. Rash not painful, intermittently itchy Went to Derm outpatient appt for rash, was instructed to come to ED for evaluation of skin rash concerning for SJS Per chart review, Carbide Die Maker at at [facility] in [place] 05/28/25: -pt started oral clindamycin on 05/19/25; [...] OTC Benadryl [facility] 05/27/25: -s/p a TCHV-MLK-CJMQ on 05/12/25. Pathology: Stage IB grade 1 [...] 79 AST 72 CRP 4.5 CXR wnlNormalThe [employer] International SystemTranscription Authentication Interface Message TextMICU Triage Note Unit Requested: MICU Triage Decision: MICU Final Disposition: [facility] VCUGEOLID SystemXR CHEST AP OR PA 1 VIEWon [id number] CHEST AP OR PA 1 VIEWEXAMINATION: XR [...] images and agree with the resident's interpretation.NormalThe [employer] International SystemXR Chest Single viewon 05-28-2025 EXAMINATION: XR [...] Chest Single viewOrdered By: Estephania Alcantara on 49-27-0894VoucyPofoam Work Phone: abo Rh Repeaton 70-18-0641ZXBJXuwKvsfuf Health System Rh Nom (Bld)PositiveToledo HospitalProSt. Mary'S Medical Center, Ironton CampusCOMPREHENSIVE METABOLIC PANELon 01-93-5559Ogqjoww [Mass/Vol]4.1 g/dLNormal3.2-5.3PBrecksville VA / Crille HospitalComment on above:Performed By: #### CMP #### [facility] ([facility]) [address] [place] [address] VIRALP [Catalytic activity/Vol]80 U/KBjrdlc55-302YheSjvckm [facility] HospitalComment on above:Performed By: #### CMP #### [facility] ([facility]) [address] [place] [address] VIRALT [Catalytic activity/Vol]10 U/LNormal<=31PBrecksville VA / Crille HospitalComment on above:Performed By: #### CMP #### [facility] ([facility]) [address] [place] [address] VIRAnion gap [Moles/Vol]6 mmol/LNormal5-15ProThe University Of Toledo Medical CenterComment on above:Performed By: #### CMP #### [facility] ([facility]) [address] [place] [address] VIRAST [Catalytic activity/Vol]13 U/LNormal<=41ProThe University Of Toledo Medical CenterComment on above:Performed By: #### CMP #### [facility] ([facility]) [address] [place] [address] VIRBilirubin [Mass/Vol]0.6 mg/dLNormal0.3-1.2PBrecksville VA / Crille HospitalComment on above:Performed By: #### CMP #### [facility] ([facility]) [address] [place] [address] VIRCalcium [Mass/Vol]9.0 mg/dLNormal8.5-10.5POhioHealth Mansfield Hospital HospitalComment on above:Performed By: #### CMP #### [facility] ([facility]) [address] [place] [address] VIRChloride [Moles/Vol]105 mmol/EHhuxxd53-152NbhRbkhbg [place]edo HospitalComment on above:Performed By: #### CMP #### [facility] ([facility]) [address] [place] [address] VIRCO2 [Moles/Vol]30 mmol/JRpmehj64-72VorAecemr [facility] Comment on above:Performed By: #### CMP #### [facility] ([facility]) [address] [place] [address] VIRCreatinine [Mass/Vol]0.92 mg/dLNormal0.40-1.00ProThe University Of Toledo Medical CenterComment on above:Result Comment: METHOD TRACEABLE TO IDMS STANDARDPerformed By: #### CMP #### [facility] ([facility]) [address] [place] [address] VIRGFR/1.73 sq M.predicted among non-blacks MDRD (S/P/Bld) [Vol rate/Area]68 mL/min/{1.73_m2}Normal>=60ProThe University Of Toledo Medical CenterComment on above:Result Comment: Reported eGFR is based on the CKD-EPI 2020 equation that does not use a race coefficient.Performed By: #### CMP #### [facility] ([facility]) [address] [place] [address] VIRGlucose [Mass/Vol]105 mg/tMXwqi99-23CnmBlbtak [place] HospitalComment on above:Performed By: #### CMP #### [facility] ([facility]) [address] [place] [address] VIRPotassium [Moles/Vol]3.8 mmol/LNormal3.5-5.0ProDayton Children'S Hospitalca Buffalo HospitalComment on above:Performed By: #### CMP #### [facility] ([facility]) [address] [place] [address] VIRProtein [Mass/Vol]7.0 g/dLNormal6.0-8.0ProAcmc Healthcare System Glenbeigh HospitalComment on above:Performed By: #### CMP #### [facility] ([facility]) [address] [place] [address] VIRSodium [Moles/Vol]141 mmol/ISvpern799-807OliDixier [place] HospitalComment on above:Performed By: #### CMP #### [facility] ([facility]) [address] [place] [address] VIRUrea nitrogen [Mass/Vol]16 mg/dLNormal5-27ProAcmc Healthcare System Glenbeigh HospitalComment on above:Performed By: #### CMP #### [facility] ([facility]) [address] [place] [address] VIRComprehensive metabolic panelon 98-35-5319Nadlbdb [Mass/Vol] 4.1 g/dL3.2 - 5.3 g/dLProMedica Health SystemALP [Catalytic activity/Vol]80 U/L 39 - 130 U/LProMedica Health SystemALT No additional P-5'-P [Catalytic activity/Vol]10 U/LNINF - 31 U/LProMedica Health SystemAnion gap [Moles/Vol]6 mmol/L5 - 15 mmol/LProMedica Health SystemAST [Catalytic activity/Vol]13 U/LNINF - 41 U/LProMedmedical center barbour Health SystemBilirubin [Mass/Vol]0.6 mg/dL0.3 - 1.2 mg/dL [facility] SystemCalcium [Mass/Vol]9 mg/dL8.5 - 10.5 mg/dLProRegency Hospital Cleveland West SystemChloride [Moles/Vol]105 mmol/L98 - 109 mmol/[facility] Health SystemCO2 [Moles/Vol]30 mmol/L22 - 32 mmol/[facility] SystemCreatinine [Mass/Vol] 0.92 mg/dL0.40 - 1.00 mg/dLToledo HospitalComment on above:METHOD TRACEABLE TO [facility] STANDARDEGFR Non-Race Kbtzxmfbq67- [facility] Comment on above:Reported eGFR is based on the CKD-EPI 2020 equation that does not use a race coefficient. Glucose [Mass/Vol]105 mg/yUIotx53 - 99 mg/dLToledo Hospital Interpretation and review of laboratory resultsAbnormalToledo Hospital Potassium [Moles/Vol]3.8 mmol/L3.5 - 5.0 mmol/[facility] Health SystemProtein [Mass/Vol]7 g/dL6.0 - 8.0 g/dLKettering Health SystemSodium [Moles/Vol]141 mmol/L134 - 146 mmol/[facility] SystemUrea nitrogen [Mass/Vol]16 mg/dL5 - 27 mg/dLCrichton Rehabilitation CenterTYPE AND SCREENon 61-62-7946GFU_BNSDJYIfysimBsyHooobx [place]edo HospitalComment on above:Performed By: #### TSC #### [facility] ([id number]) [address] [place] [address] VIRPerformed By: #### ABORHR #### [facility] ([id number]) [address] [place] [address] VIRRH_INTEPPositiveOhioHealth Nelsonville Health CenterComment on above:Performed By: #### TSC #### [facility] ([id number]) [address] [place] [address] VIRPerformed By: #### ABORHR #### [facility] ([id number]) [address] [place] [address] VIRType and screen(includes indirect nathan)on 34-54-4034XTDL [facility] Health SystemRh Nom (Bld)PositiveProMedica Mercy Health St. [facility] SystemProRegency Hospital [facility] SystemALL CBC WITH AUTO DIFFon 36-97-2170KXNYMHMPO ABSOLUTE AUTO0.1NOMS HealthcareBasophils/100 WBC (Bld)0.8 %0.2 - 2.0 %NOMS HealthcareEosinophils/100 WBC (Bld)0.8 %Low0.9 - 7.0 %NOMS HealthcareErythrocyte distribution width (RBC) [Ratio]12.8 %11.0 - 15.0 %NOMS HealthcareHematocrit (Bld) [Volume fraction]39.4 %36.0 - 48.0 %NOMS HealthcareHemoglobin (Bld) [Mass/Vol]12.8 g/dL12.0 - 16.0 g/dLNOWI HealthcareIMMATURE GRANULOCYTES ABS AUTO0.03NOMS HealthcareImmature granulocytes/100 WBC (Bld)0.5 %0.0 - 0.5 %NOMS HealthcareInterpretation and review of laboratory resultsAbnormalNOWI HealthcareLYMPHOCYTES ABSOLUTE AUTO1.1 LowNOMS HealthcareLymphocytes/100 WBC (Bld)17.2 %Low20.5 - 60.0 %[facility] MCH (RBC) [Entitic mass]28.9 pg26.7 - 34.0 pgNOMS Delaware County HospitalMCHC (RBC) [Mass/Vol]32.5 g/dL29.9 - 35.2 g/dLNOWI HealthcareMCV (RBC) [Entitic vol]88.9 fL 81.0 - 99.0 fLNOWI HealthcareMONOCYTES ABSOLUTE AUTO0.4NOMS Healthcare Monocytes/100 WBC (Bld)6.2 %1.7 - 12.0 %NOMS HealthcareNEUTROPHILS ABSOLUTE AUTO 4.6NOMS HealthcareNeutrophils/100 WBC (Bld)74.5 %43.0 - 75.0 %[facility] Healthcare Platelet mean volume (Bld) [Entitic vol]10.7 fL9.5 - 13.5 fLNOMS HealthcareTBH EO #0.1NOMS HealthcareTBH [id number] HealthcareTBH RBC4.43NOMS HealthcareTB WBC 6.1NOMS HealthcareCLINISYNCNHILLCREST HOSPITAL CUSHING – CUSHING HealthcareALL BASIC METABOLIC PANELon 04-01-2025 Anion gap [Moles/Vol]14.7 mmol/LNOMS HealthcareCalcium [Mass/Vol]9 mg/dL8.5 - 10.1 mg/dLNOWI HealthcareChloride [Moles/Vol]105 mmol/L98 - 107 mmol/LNOMS HealthcareCO2 [Moles/Vol]29.7 mmol/L21.0 - 32.0 mmol/LNOMS HealthcareCreatinine [Mass/Vol]0.91 mg/dL0.55 - 1.02 mg/dLNOWI HealthcareGFR/1.73 sq M.predicted CKD- EPI (S/P/Bld) [Vol rate/Area]>60>=60 mL/min/1.73m 2NOMS HealthcareGlucose [Mass/Vol]112 mg/uDTtxb15 - 106 mg/dLNOWI HealthcareInterpretation and review of laboratory resultsAbnormalNOMS HealthcarePotassium [Moles/Vol]4.4 mmol/L3.5 - 5.1 mmol/LNOMS HealthcareSodium [Moles/Vol]145 mmol/L136 - 145 mmol/LNOMS HealthcareTBH EGFR-NON AF [place]>60>=60 mL/min/1.73m 2NOMS HealthcareUrea nitrogen [Mass/Vol]19 mg/dLHigh7.0 - 18.0 mg/dLNOWI HealthcareUrea nitrogen/Creatinine [Mass ratio]20.9 mg/mgNOWI HealthcareCLINISYNBeaufort Memorial HospitalECG 12-LEADon 69-72-9708[place]db[place] [address] Electrocardiograph Report Signed Patient: DELMIS MTZ MR#: [id number] : 1960 Acct:[id number] Age/Sex: 64 / F ADM Date: 04/01/25 Loc: [facility] Attending Dr: Yovani Valdez D.O. Ordering Physician: Yovani Valdez D.O. 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 Measurements Intervals [place] Rate: 55 P: 40 VT: 162 QRS: 30 QRSD: 89 T: 23 QT: 414 QTc: 398 Interpretive Statements SINUS BRADYCARDIA Borderline ECG Compared to ECG 01/04/2017 20:11:26 Heart rate has decreased Electronically Signed On 04-01-2025 18:34:40 EDT by MAC ECHOLS M.D. Dictated By: MAC ECHOLS Signed By: 04/01/251834 DD/ 0953 TD/TT: Research Lab Assistant:TBHRadiology, Radiologist, - 04/01/2025 [place] [address] Electrocardiograph Report Signed Patient: DELMIS MTZ MR#: [id number] : 1960 Acct:[id number] Age/Sex: 64 / F ADM Date: 04/01/25 Loc: [facility] Attending Dr: Yovani Valdez D.O. Ordering Physician: Yovani Valdez D.O. 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 Measurements Intervals [place] Rate: 55 P: 40 VT: 162 QRS: 30 QRSD: 89 T: 23 QT: 414 QTc: 398 Interpretive Statements SINUS BRADYCARDIA Borderline ECG Compared to ECG 01/04/2017 20:11:26 Heart rate has decreased Electronically Signed On 04-01-2025 18:34:40 EDT by MAC ECHOLS M.D. Dictated By: MAC ECHOLS Signed By: 04/01/25 1835 DD/ 0953 TD/TT: Research Lab Assistant: [facility] HealthcareRadiology Study observation (narrative)[facility] Ordered By: Radiologist Radiology on [phone] Work Phone: US PELVIC COMPLETE W/ TVon [phone] PELVIC COMPLETE W/ TVEXAM: US PELVIC COMPLETE [...] II, MD, PHD at 19-Mar-2025 08:43:41 AM [facility] TeleradiologyNormalNot AvailableComment on above:Order Comment: US PELVIS-TRANSVAG IF INDICATED No LMP recorded.INSULINon [id number] uIU/mLNormal2.6-24.9The [facility]in HospitalComment on above:Performed By: #### INSULIN #### [facility] [address] [place] [address] Dr. Ghassan Hussein 25-OH LABCORPon [id number] D, 25-Lmvrhpq17.2 ng/mL Spsjpk38.0-100.0The [facility] HospitalComment on above:Result Comment: Vitamin D deficiency has been defined by the [place] of [employer] and an Endocrine Society practice guideline as a level of serum 25-OH vitamin D less than 20 ng/mL (1,2). The Endocrine Society went on to further define vitamin D insufficiency as a level between 21 and 29 ng/mL (2). 1. IOM ([place] of [employer]). 2010. Dietary reference intakes for calcium and D. [place]: The National Academies Press. 2. Nadia MF, Fermin [place], Mark ABAD, et al. Evaluation, treatment, and prevention of vitamin D deficiency: an Endocrine Society clinical practice guideline. JCEM. 2010; 96():1911-30.Performed By: #### IRON #### [facility] [address] [place] [address] Katherin KarenCBC AUTO DIFFon [id number] #0.0 103/ulNormal0.0-0.1The [facility] HospitalComment on above:Performed By: #### IRON #### [facility] [address] [place] [address] Katherin KarenBasophils/100 WBC (Bld)0.7 %Normal0.2-2.0The [facility] Comment on above:Performed By: #### IRON #### [facility] [address] [place] [address] Katherin KarenEO #0.1 103/ulNormal0.0-0.7The [facility] HospitalComment on above: Performed By: #### IRON #### [facility] [address] [place] [address] Katherin KarenEosinophils/100 WBC (Bld)1.1 %Normal0.9-7.0The [facility] Comment on above:Performed By: #### IRON #### [facility] [address] [place], [place] [id number] Katherin KarenErythrocyte distribution width (RBC) [Ratio]12.8 %Fievzh16.0-15.0The [facility] HospitalComment on above:Performed By: #### IRON #### [facility] [address] [place], [place] [id number] Katherin KarenHematocrit (Bld) [Volume fraction]40.9 %Bkcxia94.0-48.0The [facility] HospitalComment on above:Performed By: #### IRON #### [facility] [address] [place] [address] Katherin KarenHemoglobin (Bld) [Mass/Vol]13.3 g/xZWskyfh31.0-16.0The [facility] HospitalComment on above:Performed By: #### IRON #### [facility] [address] [place] [address] Katherin KarenIG #0.01 10e3/ulNormal0.00-0.03The [facility] HospitalComment on above:Performed By: #### IRON #### [facility] [address] [place] [address] Katherin KarenIG %0.2 %Normal0.0-0.5The [facility] HospitalComment on above: Performed By: #### IRON #### [facility] [address] [place] [address] Katherin KarenLYMPH #1.0 103/ulCritically low1.2-3.8The [facility] HospitalComment on above:Performed By: #### IRON #### [facility] [address] [place] [address] Katherin KarenLymphocytes/100 WBC (Bld)18.7 %Critically low20.5-60.0The [facility] HospitalComment on above:Performed By: #### IRON #### [facility] [address] [place] [address] Katherin KarenMANUAL DIFF REQNONormalThe [facility] HospitalComment on above: Performed By: #### IRON #### [facility] [address] [place] [address] Katherin KarenMCH (RBC) [Entitic mass]28.8 jeSgifhu73.7-34.0The [facility] Comment on above:Performed By: #### IRON #### [facility] [address] [place] [address] Katherin KarenMCHC (RBC) [Mass/Vol]32.5 g/oSYdzljp63.9-35.2The [facility] Comment on above:Performed By: #### IRON #### [facility] [address] [id number] Kahterin KarenMCV (RBC) [Entitic vol]88.5 aZWoaasf38.0-99.0The [facility] Comment on above:Performed By: #### IRON #### [facility] [address] [address] Katherin KarenMONO #0.4 103/ulNormal0.3-0.8The [facility] HospitalComment on above: Performed By: #### IRON #### [facility] [address] [place] [address] Aktherin KarenMonocytes/100 WBC (Bld)7.8 %Normal1.7-12.0[facility] Comment on above:Performed By: #### IRON #### [facility] [address] [place] [address] Katherin KarenNEUT #3.9 103/ulNormal1.4-6.5The [facility] HospitalComment on above: Performed By: #### IRON #### [facility] [address] [place] [address] Katherin KarenNeutrophils/100 WBC (Bld)71.5 %Fsbzyg76.0-75.0[facility] Comment on above:Performed By: #### IRON #### [facility] [address] [place] [address] Katherin KarenPlatelet mean volume (Bld) [Entitic vol]11.0 fLNormal9.5-13.5The [facility] HospitalComment on above:Performed By: #### IRON #### [facility] [address] [place] [address] Katherin WsujfJPN407 103/vfFvgfle633-095Tqj [facility] HospitalComment on above: Performed By: #### IRON #### [facility] [address] [place] [address] Katherin KarenRBC4.62 106/ulNormal4.20-5.40The [facility] HospitalComment on above: Performed By: #### IRON #### [facility] [address] [address] Katherin KarenWBC5.5 103/ulNormal4.0-11.0The [facility] HospitalComment on above: Performed By: #### IRON #### [facility] [address] [address] Katherin KarenFREE THYROXINE INDEX T7on 71-93-2581RGS3.39Isqtmn8.30-4.50The [facility] HospitalComment on above:Performed By: #### LIPID, T7, TSH, CMP #### [facility] [address] [address] [address] Ghassan MenaT3U31.0 %Dmnesn36.0-39.0The [facility] HospitalComment on above: Performed By: #### LIPID, T7, TSH, CMP #### [facility] [address] [place] [address] Dr. Ghassan MenaT4 [Mass/Vol]9.50 ug/dLNormal4.80-13.90The [facility] Comment on above:Performed By: #### LIPID, T7, TSH, CMP #### [facility] [address] [place] [address] Dr. Ghassan MenaGLYCOHEMOGLOBIN A1Con [id number] RECOMMENDATIONSEE BELOWNormal The [facility] HospitalComforest view hospital on above:Result Comment: ADA RECOMMENDED LIMIT 4.0 - 6.0 ADA THERAPEUTIC TARGET < 7.0 ACTION SUGGESTED > 7.0Performed By: #### A1C #### [facility] [address] [place] [address] Dr. Ghassan MenaGlucose [Mass/Vol]131 mg/dLNormalThe [facility] HospitalComment on above:Performed By: #### A1C #### [facility] [address] [place] [address] Dr. Ghassan MenaHbA1c (Bld) [Mass fraction]6.2 %Normal4.5-6.2The [facility] HospitalComment on above:Performed By: #### A1C #### [facility] [address] [address] [address] Ghassan Lay [id number] [Mass/Vol]54.0 ug/pEOqonqm56.0-170.0[facility] Centerment on above:Performed By: #### IRON #### [facility] [address] [address] [address] Ghassan HidalgoID PROFILEon [id number]-HDL RATIO NORMSEE BELOWKettering Health HamiltonComment on above:Result Comment: 3.3 - 4.4 LOW RISK 4.4 - 7.1 AVERAGE RISK 7.1 - 11.0 MODERATE RISK >11.0 HIGH RISKPerformed By: #### LIPID, T7, TSH, CMP #### [facility] [address] [place] [address] Dr. Ghassan Monahanesterol [Mass/Vol]143 mg/dLNormal<=200The [facility] Comment on above:Performed By: #### LIPID, T7, TSH, CMP #### [facility] [address] [place] [address] Dr. Ghassan Monahanesterol in HDL [Mass/Vol]50 mg/iBSsnfmr50-58Lgp [facility] HospitalComforest view hospital on above:Performed By: #### LIPID, T7, TSH, CMP #### [facility] [address] [address] [address] Ghassan Monahanesterol in LDL [Mass/Vol]76.8 mg/dLKettering Health HamiltonComforest view hospital on above:Performed By: #### LIPID, T7, TSH, CMP #### [facility] [address] [place] [address] Dr. Ghassan Do.total/Cholesterol in HDL [Mass ratio]2.9 {ratio} NormalWright-Patterson Medical CenterComforest view hospital on above:Performed By: #### LIPID, T7, TSH, CMP #### [facility] [address] [place] [address] Dr. Ghassan Chambers NORMAL> or = 60 mg/dl - LOW CARDIOVASCULAR RISK <40 mg/dl - HIGH CARDIOVASCULAR RISKNoHolmes County Joel Pomerene Memorial HospitalComment on above:Performed By: #### LIPID, T7, TSH, CMP #### [facility] [address] [address] [address] Ghassan Trujillo CALC NORMALSEE BELOWKettering Health HamiltonComment on above:Result Comment: <100 mg/dl OPTIMAL 100 - 129 mg/dl NEAR OR ABOVE OPTIMAL 130 - 159 mg/dl BORDERLINE HIGH 160 - 189 mg/dl HIGH >190 mg/dl VERY HIGH Performed By: #### LIPID, T7, TSH, CMP #### [facility] [address] [address] [address] Ghassan MenaTriglyceride [Mass/Vol]81 mg/dLNormal<=150The [facility] Comment on above:Performed By: #### LIPID, T7, TSH, CMP #### [facility] [address] [address] [address] Ghassan MenaVLDL CALC16.2 mg/dLNoHolmes County Joel Pomerene Memorial HospitalComment on above: Performed By: #### LIPID, T7, TSH, CMP #### [facility] [address] [address] [address] Ghassan MenaPROF 14(COMP METB)on [id number] [Mass/Vol]3.5 g/dLNormal 3.4-5.0The [facility] on above:Performed By: #### LIPID, T7, TSH, CMP #### [facility] [address] [address] [address] Ghassan MenaAlbumin/Globulin [Mass ratio]0.9 {ratio}NormalThe [facility] on above:Performed By: #### LIPID, T7, TSH, CMP #### [facility] [address] [address] [address] Ghassan Cruz [Catalytic activity/Vol]83 U/TYhwzsz41-878Vlc [facility] on above:Performed By: #### LIPID, T7, TSH, CMP #### [facility] [address] [address] [address] Ghassan Reyes [Catalytic activity/Vol]14 U/JHieohi03-55Ikb [facility] Hospitalment on above:Performed By: #### LIPID, T7, TSH, CMP #### [facility] [address] [address] [address] Ghassan Alonzoon gap [Moles/Vol]11.3 mmol/LNormalW[facility] Comment on above:Performed By: #### LIPID, T7, TSH, CMP #### [facility] [address] [address] [address] hGassan MenaAST [Catalytic activity/Vol]11 U/LCritically euj64-11Ijg [facility] HospitalComment on above:Performed By: #### LIPID, T7, TSH, CMP #### [facility] [address] [place] [address] Dr. Ghassan MenaBilirubin [Mass/Vol]0.5 mg/dLNormal0.2-1.0[facility] Comment on above:Performed By: #### LIPID, T7, TSH, CMP #### [facility] [address] [place] [address] Dr. Ghassan MenaCalcium [Mass/Vol]8.9 mg/dLNormal8.5-10.1[facility] Comment on above:Performed By: #### LIPID, T7, TSH, CMP #### [facility] [address] [place] [address] Dr. Ghassan MenaChloride [Moles/Vol]105 mmol/ZEipyqr80-094VqpWright-[facility] Center Comment on above:Performed By: #### LIPID, T7, TSH, CMP #### [facility] [address] [place] [address] Dr. Ghassan MenaCO2 [Moles/Vol]27.8 mmol/YIpsobm02.0-32.0[facility] Comment on above:Performed By: #### LIPID, T7, TSH, CMP #### [facility] [address] [place] [address] Dr. Ghassan MenaCreatinine [Mass/Vol]0.70 mg/dLNormal0.55-1.02The [facility] HospitalComment on above:Performed By: #### LIPID, T7, TSH, CMP #### [facility] [address] [address] [address] Ghassan BowensGFR-AF WALLISIAN>60Normal>=60The [facility] Hospitalment on above:Performed By: #### LIPID, T7, TSH, CMP #### [facility] [address] [address] [address] Ghassan BowensGFR-NON AF WALLISIAN>60Normal>=60The [facility] HospitalComment on above:Performed By: #### LIPID, T7, TSH, CMP #### [facility] [address] [address] [address] Ghassan MenaGlobulin (S) [Mass/Vol]3.8 g/dLNormalThe [facility] HospitalComment on above:Performed By: #### LIPID, T7, TSH, CMP #### [facility] [address] [place] [address] Dr. Ghassan MenaGlucose [Mass/Vol]109 mg/dLCritically pvdg79-491Lgr [facility] HospitalComment on above:Performed By: #### LIPID, T7, TSH, CMP #### [facility] [address] [address] [address] Ghassan MenaPotassium [Moles/Vol]4.1 mmol/LNormal3.5-5.1The [facility] Comment on above:Performed By: #### LIPID, T7, TSH, CMP #### [facility] [address] [address] [address] Ghassan MenaProtein [Mass/Vol]7.3 g/dLNormal6.4-8.2The [facility] Comment on above:Performed By: #### LIPID, T7, TSH, CMP #### [facility] [address] [address] [address] Ghassan MenaSodium [Moles/Vol]140 mmol/PWhtiee736-655Iaw [facility] Comment on above:Performed By: #### LIPID, T7, TSH, CMP #### [facility] [address] [address] [address] Ghassan MenaUrea nitrogen [Mass/Vol]16.0 mg/dLNormal7.0-18.0The [facility] HospitalComment on above:Performed By: #### LIPID, T7, TSH, CMP #### [facility] [address] [place] [address] Dr. Ghassan MenaUrea nitrogen/Creatinine [Mass ratio]22.9 mg/mgNormalThe [facility] HospitalComment on above:Performed By: #### LIPID, T7, TSH, CMP #### [facility] [address] [place] [address] Dr. Ghassan HumphreyHodeborah 42-67-0921JHV3.630 uIU/mLNormal0.358-3.740[facility] CenterComment on above:Performed By: #### LIPID, T7, TSH, CMP #### [facility] [address] [place] [address] Dr. Ghassan MenaINSULINon 29-36-7346Nkkdznf9.9 uIU/mLNormal2.6-24.9The [facility] HospitalComment on above:Performed By: #### INSULIN #### [facility] [address] [place] [address] Katherin KarenCBC AUTO DIFFon [id number] #0.1 103/ulNormal0.0-0.1[facility] CenterComment on above:Performed By: #### IRON #### [facility] [address] [place] [address] Katherin KarenBasophils/100 WBC (Bld)1.0 %Normal0.2-2.0The [facility] Comment on above:Performed By: #### IRON #### [facility] [address] [place] [address] Katherin KarenEO #0.1 103/ulNormal0.0-0.7The [facility] HospitalComforest view hospital on above: Performed By: #### IRON #### [facility] [address] [place] [address] Katherin KarenEosinophils/100 WBC (Bld)1.2 %Normal0.9-7.0[facility] Comment on above:Performed By: #### IRON #### [facility] [address] [place] [address] Katherin KarenErythrocyte distribution width (RBC) [Ratio]13.1 %Ikofvf19.0-15.0The [facility] Hospitalment on above:Performed By: #### IRON #### [facility] [address] [place] [address] Katherin KarenHematocrit (Bld) [Volume fraction]40.6 %Qkznpb01.0-48.0The [facility] HospitalComment on above:Performed By: #### IRON #### [facility] [address] [place] [address] Katherin KarenHemoglobin (Bld) [Mass/Vol]13.1 g/pDYbibgt94.0-16.0The [facility] HospitalComment on above:Performed By: #### IRON #### [facility] [address] [place] [address] Katherin KarenIG #0.01 10e3/ulNormal0.00-0.03The [facility] HospitalComment on above:Performed By: #### IRON #### [facility] [address] [place] [address] Katherin KarenIG %0.2 %Normal0.0-0.5The [facility] HospitalComment on above: Performed By: #### IRON #### [facility] [address] [place] [address] Katherin KarenLYMPH #1.2 103/ulNormal1.2-3.8The [facility] HospitalComment on above: Performed By: #### IRON #### [facility] [address] [place] [address] Katherin KarenLymphocytes/100 WBC (Bld)22.1 %Ankisq28.5-60.0The [facility] Comment on above:Performed By: #### IRON #### [facility] [address] [place] [address] Katherin KarenMANUAL DIFF REQNONormalThe [facility] HospitalComment on above: Performed By: #### IRON #### [facility] [address] [address] Katherin ArroyoMCH (RBC) [Entitic mass]29.1 odJjvxeq53.7-34.0[facility] Comment on above:Performed By: #### IRON #### [facility] [address] [place] [address] Katherin ArroyoMCHC (RBC) [Mass/Vol]32.3 g/gOTsdxqh79.9-35.2[facility] Comment on above:Performed By: #### IRON #### [facility] [address] [place] [address] Katherin ArroyoMCV (RBC) [Entitic vol]90.2 yZQcfnbz43.0-99.0[facility] Comment on above:Performed By: #### IRON #### [facility] [address] [place] [address] Katherin KarenMONO #0.5 103/ulNormal0.3-0.8ThToledo HospitalComment on above: Performed By: #### IRON #### [facility] [address] [place] [address] Katherin KarenMonocytes/100 WBC (Bld)9.0 %Normal1.7-12.0[facility] Comment on above:Performed By: #### IRON #### [facility] [address] [place] [address] Katherin KarenNEUT #3.5 103/ulNormal1.4-6.5The [facility] HospitalComment on above: Performed By: #### IRON #### [facility] [address] [place] [address] Katherin KarenNeutrophils/100 WBC (Bld)66.5 %Jqutwh67.0-75.0[facility] Comment on above:Performed By: #### IRON #### [facility] [address] [place] [address] Katherin KarenPlatelet mean volume (Bld) [Entitic vol]11.0 fLNormal9.5-13.5The [facility] HospitalComment on above:Performed By: #### IRON #### [facility] [address] [address] Katherin CqkjaXBQ482 103/leSnbkyg447-406Fvd [facility] HospitalComment on above: Performed By: #### IRON #### [facility] [address] [address] Katherin KarenRBC4.50 106/ulNormal4.20-5.40The [facility] HospitalComment on above: Performed By: #### IRON #### [facility] [address] [place] [address] Katherin KarenWBC5.2 103/ulNormal4.0-11.0The [facility] HospitalComforest view hospital on above: Performed By: #### IRON #### [facility] [address] [place] [address] Katherin KarenFREE THYROXINE INDEX T7on 95-98-5400TLD6.77NoHolmes County Joel Pomerene Memorial HospitalComment on above:Performed By: #### IRON #### [facility] [address] [place] [address] Katherin PxhsaW0I37.0 %Bkmgvi34.5-40.5The [facility] HospitalComforest view hospital on above: Performed By: #### IRON #### [facility] [address] [place] [address] Katherin KarenT4 [Mass/Vol]11.10 ug/dLCritically high5.53-11.00[facility] CenterCom[facility] hospital on above:Performed By: #### IRON #### [facility] [address] [place] [address] Katherin KarenGLYCOHEMOGLOBIN A1Con 04-21-1203ZSS RECOMMENDATIONADA THERAPEUTIC TARGET 6.0 - 7.0 ACTION SUGGESTED > 7.0NoHolmes County Joel Pomerene Memorial HospitalComforest view hospital on above:Performed By: #### A1C #### [facility] [address] [place] [address] Katherin KarenGlucose [Mass/Vol]123 mg/dLNoHolmes County Joel Pomerene [facility] HospitalComforest view hospital on above:Performed By: #### A1C #### [facility] [address] [place], [place] [id number] Katherin WrwlhUoL3c (Bld) [Mass fraction]5.9 %Normal<=6.0[facility] Comment on above:Performed By: #### A1C #### [facility] [address] [place] [address] Katherin KarenIRONon 11-27-3515Jhro [Mass/Vol]64.0 ug/pKWtztsy51.0-170.0[facility] CenterComment on above:Performed By: #### IRON #### [facility] [address] [place] [address] Katherin KarenLIPID PROFILEon [id number]-HDL RATIO NORMSEE BELOWKettering Health HamiltonComment on above:Result Comment: 3.3 - 4.4 LOW RISK 4.4 - 7.1 AVERAGE RISK 7.1 - 11.0 MODERATE RISK >11.0 HIGH RISKPerformed By: #### IRON #### [facility] [address] [place] [address] Katherin KarenCholesterol [Mass/Vol]137 mg/dLNormal<=200[facility] Comment on above:Performed By: #### IRON #### [facility] [address] [place] [address] Katherin KarenCholesterol in HDL [Mass/Vol]52 mg/dLKettering Health Hamilton Comment on above:Performed By: #### IRON #### [facility] [address] [place] [address] Katherin KarenCholesterol in LDL [Mass/Vol]72.2 mg/dLKettering Health Hamilton Comment on above:Performed By: #### IRON #### [facility] [address] [place] [address] Katherin KarenCholesterol.total/Cholesterol in HDL [Mass ratio]2.6 {ratio}Normal The [facility] HospitalComment on above:Performed By: #### IRON #### [facility] [address] [place] [address] Katherin KarenHDL NORMAL> or = 60 mg/dl - LOW CARDIOVASCULAR RISK <40 mg/dl - HIGH CARDIOVASCULAR RISKKettering Health HamiltonComment on above:Performed By: #### IRON #### [facility] [address] [address] Katherin KarenLDL CALC NORMALSEE BELOWKettering Health HamiltonComment on above: Result Comment: <100 mg/dl OPTIMAL 100 - 129 mg/dl NEAR OR ABOVE OPTIMAL 130 - 159 mg/dl BORDERLINE HIGH 160 - 189 mg/dl HIGH >190 mg/dl VERY HIGHPerformed By: #### IRON #### [facility] [address] [place] [address] Katherin KarenTriglyceride [Mass/Vol]64 mg/dLNormal<=150[facility] Comment on above:Performed By: #### IRON #### [facility] [address] [place] [address] Katherin KarenVLDL CALC12.8 mg/dLNoHolmes County Joel Pomerene Memorial HospitalComment on above: Performed By: #### IRON #### [facility] [address] [place] [address] Katherin KarenPROF 14(COMP METB)on 95-42-9185Qkrbdin [Mass/Vol]3.7 g/dLNormal 3.5-5.0[facility] CenterComment on above:Performed By: #### IRON #### [facility] [address] [place] [address] Katherin KarenAlbumin/Globulin [Mass ratio]0.9 {ratio}NormalWright-Patterson Medical Center Comment on above:Performed By: #### IRON #### [facility] [address] [place] [address] Katherin KarenALP [Catalytic activity/Vol]85 U/YQmqsob99-660MuvWright-Patterson Medical Center Comment on above:Performed By: #### IRON #### [facility] [address] [place] [address] Katherin KarenALT [Catalytic activity/Vol]19 U/LNormal9-52[facility] Comment on above:Performed By: #### IRON #### [facility] [address] [place] [address] Katherin KarenAnion gap [Moles/Vol]10.6 mmol/LNormalThe [facility] HospitalComment on above:Performed By: #### IRON #### [facility] [address] [address] Katherin KarenAST [Catalytic activity/Vol]24 U/DGplnhl03-59DkbWright-Patterson Medical Center Comment on above:Performed By: #### IRON #### [facility] [address] [address] Katherin KarenBilirubin [Mass/Vol]0.5 mg/dLNormal0.2-1.3TC[facility] Comment on above:Performed By: #### IRON #### [facility] [address] [place] [address] Katherin KarenCalcium [Mass/Vol]9.2 mg/dLNormal8.4-10.2[facility] Comment on above:Performed By: #### IRON #### [facility] [address] [place] [address] Katherin KarenChloride [Moles/Vol]102 mmol/ZYolifj57-204OmdWright-Pat[facility] Medical Center Comment on above:Performed By: #### IRON #### [facility] [address] [place] [address] Katherin KarenCO2 [Moles/Vol]31.5 mmol/LCritically high22.0-30.0[facility] CenterComment on above:Performed By: #### IRON #### [facility] [address] [place] [address] Katherin KarenCreatinine [Mass/Vol]0.85 mg/dLNormal0.52-1.04[facility] Comment on above:Performed By: #### IRON #### [facility] [address] [address] Katherin KarenEGFR-AF WALLISIAN>60Normal>=60The [facility] HospitalComment on above: Performed By: #### IRON #### [facility] [address] [place] [address] Katherin KarenEGFR-NON AF WALLISIAN>60Normal>=60The [facility] HospitalComment on above:Performed By: #### IRON #### [facility] [address] [address] Katherin KarenGlobulin (S) [Mass/Vol]4.0 g/dLNormParkview HealthComment on above:Performed By: #### IRON #### [facility] [address] [address] Katherin KarenGlucose [Mass/Vol]99 mg/hGXsesfh49-930Myv [facility] HospitalComment on above:Performed By: #### IRON #### [facility] [address] [place] [address] Katherin KarenPotassium [Moles/Vol]4.1 mmol/LNormal3.4-5.0The [facility] Comment on above:Performed By: #### IRON #### [facility] [address] [place] [address] Katherin KarenProtein [Mass/Vol]7.7 g/dLNormal6.1-8.2The [facility] HospitalComment on above:Performed By: #### IRON #### [facility] [address] [place] [address] Katherin KarenSodium [Moles/Vol]140 mmol/QHeqgta206-173Smv [facility] Comment on above:Performed By: #### IRON #### [facility] [address] [place] [address] Katherin KarenUrea nitrogen [Mass/Vol]15.0 mg/dLNormal7.0-17.0The [facility] HospitalComment on above:Performed By: #### IRON #### [facility] [address] [place] [address] Katherin KarenUrea nitrogen/Creatinine [Mass ratio]17.6 mg/mgNormParkview HealthComment on above:Performed By: #### IRON #### [facility] [address] [place] [address] Katherin KarenTSHon 65-41-9934VDY7.729 uIU/mLNormal0.470-4.680The [facility] HospitalComment on above:Performed By: #### IRON #### [facility] [address] [place], [place] [address] Katherin Ivey [facility] HospitalComment on above:Result Comment: <0.34 UIU/ml HYPERTHYROID 0.34-5.60 UIU/ml EUTHYROID >5.60 UIU/ml HYPOTHYROIDPerformed By: #### IRON #### [facility] [address] [place], [place] [address] Katherin Arroyo Vital Signs Date TimeVital SignValuePerforming MbyghwsqcKkrrqimq56-98-8037 13:24-0400Body uceatn859.3 cmNicvicky Brown DPM Work Phone: [facility] InstituteQczgmvgcjx56-92-2680 13:24-0400Body mass index (BMI) [Ratio]39.89 kg/d3Dztdausc Brown DPM Work Phone: [facility] InstituteDtngslzmuy52-94-9296 13:24-0400Body touvmm248.73 kgLiborio Miranda DPM Work Phone: [facility] InstituteGpcdooygua61-39-6671 13:24-0400Respiratory rate16 /minLiborio Brown DPM Work Phone: [facility] InstituteEriwhvuxzj10-77-4091 08:51-0400Body .6 cmCourdejon Rodriguez PA Work Phone: [facility]08-18-2025 08:51-0400Body mass index (BMI) [Ratio]38.9 kg/w1ResxnhcxLindsay Rordiguez PA Work Phone: [facility]08-18-2025 08:51-0400Body sqpqicikoix42.7 [degF]Lindsay BURNHAM Work Phone: [facility]08-18-2025 08:51-0400Body xcqobd498.28 kgCocony Rodriguez PA Work Phone: [facility]08-18-2025 08:51-0400Diastolic blood jvudemfx68 mm[Hg]Lindsay BURNHAM Work Phone: [facility] GroupTie Eyeivb50-45-7634 08:51-0400Heart rate 54 /minCourtporsha Rodriguez PA Work Phone: [facility] GroupTie Uulpdm45-84-3944 08:51-0400 Respiratory rate16 /minCocony Rodriguez PA Work Phone: [facility]08-18-2025 08:51-8483HuR1% (BldA) [Mass fraction]100 %Lindsay Rodriguez PA Work Phone: [facility] GroupTie Ufnfnm02-80-0986 08:51-0400Systolic blood mm[Hg]Lindsay Rodriguez PA Work Phone: [facility]07-28-2025 14:46-0400Body qotmoz717.3 cmMarc Dolce DPM FACFAS Work Phone: [facility] InstituteAyldwnqzmu84-86-1474 14:46-0400Body mass index (BMI) [Ratio]39.89 kg/m2Marc Dolce DPM FACFAS Work Phone: [facility] InstituteRtunrulpjw57-57-7331 14:46-0400Body lbzlyd846.73 kgMarc Dolce DPM FACFAS Work Phone: [facility] InstituteSsjcthqelj36-08-2021 14:46-0400Respiratory rate18 /minMarc Dolce DPM FACFAS Work Phone: [facility] InstituteHccmmiefrv52-03-9380 15:00-0400Diastolic blood qtzhtpmy72 mm[Hg]Julian Camarena MD Work Phone: [phone]uQmrjzt59-23-5063 15:00-0400Heart rate61 /min Julian Camarena MD Work Phone: [phone]9NlrntDiofvf90-92-7162 15:00-0400Respiratory rate23 /minJulian Camarena MD Work Phone: [phone]6BfqmlYslvsf51-31-9629 15:00-3089FxT9% (BldA) [Mass fraction]97 %Julian Camarena MD Work Phone: metro242-4746NozhzKsjdab68-707650TbeuwAyhwky30-36-7651 15:00-0400Systolic blood bcpolhxe980 mm[Hg]Julian Camarena MD Work Phone: [phone]kPywuxw62-62-2338 13:00-0400Body qxfhgpxosmm33.1 [degF]Julian Camarena MD Work Phone: [phone]uUmoohl13-19-3933 09:02-0400Heart rate66 /min Julian Camarena MD Work Phone: [phone]gBgivpz44-04-2420 00:06-0400Body mass index (BMI) [Ratio]41.42 kg/t1Zskqkdkalpesh Camarena MD Work Phone: [phone]sMphsgh76-88-0978 00:06-0400Body vyotjj310.7 kg Julian Camarena MD Work Phone: [phone]bEjkwcp98-99-2528 21:53-0400Body .3 cm Julian Camarena MD Work Phone: [phone]mPqkdkz86-89-0295 11:28-0400Diastolic blood kkedonga88 mm[Hg]Lindsay Rodriguez PA Work Phone: [facility] CenterDepartment [facility] Human [facility] Miinif06-61-8631 11:28-0400Systolic blood wjyjyxlq53 mm[Hg]Lindsay Rodriguez PA Work Phone: [facility] CenterDepartment [facility] Health [facility] Human Services Wsoyvj79-55-2885 11:24-0400Body .6 cmCourdejon Rodriguez PA Work Phone: [facility] CenterDepartment [facility] Human [facility] Ieqsmw56-82-2277 11:24-0400Body mass index (BMI) [Ratio]40.52 kg/e1Gxredziycony Rodriguez PA Work Phone: [facility] CenterWatchGuard07-15-2025 11:24-0400Body zlapumewgqb26.9 [degF]Lindsay Rodriguez PA Work Phone: [facility] CenterDepartment [facility] Human Services Fgbaqv81-18-6132 11:24-0400Body .63 kgCocony Rodriguez PA Work Phone: [facility] CenterDepartment [facility] Human [facility] Kpwdtt31-17-8386 11:24-0400Heart rate 72 /minCocony Morrisne PA Work Phone: [facility]07-15-2025 11:24-0400 Respiratory rate16 /minCocony Morrisne PA Work Phone: [facility]07-15-2025 11:24-9940BnA2% (BldA) [Mass fraction]99 %Lindsay Morrisne PA Work Phone: [facility]06-26-2025 14:05-0400Body aichxu194.[address]06-26-2025 14:05-0400Body mass index (BMI) [Ratio]39.42 kg/h1Vzqmu[address]06-26-2025 14:05-0400Body qemxvjkbrub79.5 [degF][address]06-26-2025 14:05-0400Body wqxxyz[address]06-26-2025 14:05-0400Diastolic blood mm[Hg][address]06-26-2025 14:05-0400Heart rate63 /min[address]06-26-2025 14:05-0400Respiratory rate18 /min [address]06-26-2025 14:05-4807NuM3% (BldA) [Mass fraction] 97 %[address]06-26-2025 14:05-0400Systolic blood pressure 127 mm[Hg][address]06-09-2025 13:23-0400Body mass index (BMI) [Ratio]37.6 kg/m2Bisi BURNHAM Work Phone: [facility] InstituteMzfixsjijr67-68-7493 13:23-0400Body dykvay593.28 kgBisi BURNHAM Work Phone: [facility] InstituteTpewivjqnt85-32-4246 13:23-0400Diastolic blood tmgyyqnb40 mm[Hg]Bisi BURNHAM Work Phone: [facility] InstituteCiqsesyhkz88-05-1280 13:23-0400Systolic blood cifwhdji792 mm[Hg]Bisi BURNHAM Work Phone: [facility] InstituteXjfyfouovb13-75-5755 15:39-0400Body mass index (BMI) [Ratio]38.33 kg/q4Phdnz José Miguel DO Work Phone: [facility] InstituteQovqlxdtaz37-41-1382 15:39-0400Body .77 kgCorey José Miguel DO Work Phone: [phone] includes the [facility] InstituteKadqspuexs19-70-7852 15:39-0400Diastolic blood vtjvywsy70 mm[Hg]Yovani José Miguel DO Work Phone: [facility] InstituteTmwoigelki58-04-8183 15:39-0400Systolic blood ymyaoyyn310 mm[Hg]Yovani José Miguel DO Work Phone: [facility] InstituteSmlpdqblzb68-69-9940 10:09-0400Body mass index (BMI) [Ratio]37.84 kg/m9Vbxek José Miguel DO Work Phone: [phone] [place], [place] [address]Hyzadsdipp78-52-6454 10:09-0400Body hycoct854.09 kgCorey José Miguel DO Work Phone: [facility] InstituteWomsmbygaw11-12-6215 10:09-0400Diastolic blood mm[Hg]Yovani José Miguel DO Work Phone: [facility] InstituteArjrjqzmhn84-72-9163 10:09-0400Systolic blood jwzrlylj569 mm[Hg]Yovani José Miguel DO Work Phone: [facility] Healthcare Encounters Encounter DateEncounter TypeCare ProviderFacilityStart: 09-17-2025 End: 47-32-2786gahexuihrwByhpjir R NILLFacility: [place]vueStart: 09-17-2025 End: 85-15-3013Mfrbsog encounter procedureMichael R NILL [phone]-OsyhjParkview Health [facility] [place] Start: 09-04-2025 End: 37-19-6292Kidckk flowsMichaelle Miranda DPM Work Phone: noms CI PODIATRYStart: 09-04-2025 End: 34-31-0244Oqeavg flowsMichaelle Miranda DPM Work Phone: noms CI PODIATRYStart: 09-04-2025 End: 77-30-0698Nyiefo outpatient visit 10 minutesLiborio Miranda DPM Work Phone: noms CI PODIATRYComment on above:Other specified disorders of synovium, left ankle and foot (Primary Dx); Pain due to onychomycosis of toenails of both feetStart: 09-04-2025 End: 07-76-3227fkbbcwcqvcMXHZTWQE A BROWNNot AvailableStart: 08-28-2025 ambulatoryMichael NILLFacility: BellevueStart: 06-30-2025 End: 10-17-9040Sjlhql follow up visit related to original Radha BURNHAM Work Phone: [facility]otUniversity of [facility] Health - Medical OncologyComment on above:Encounter for postoperative care (Primary Dx)Start: 06-30-2025 End: 57-38-7560unzhjkyexuEWXKOELW PAYNEProMedica Westphalia HospitalStart: 06-09-2025 End: 02-58-9880Sqpxpp outpatient visit 15 minutesMarc D Dolce DPM FACFAS Work Phone: noms [facility] PODComment on above:Abscess, toe, left (Primary Dx); OnychocryptosisStart: 06-09-2025 End: 79-81-6878syuhyohugdLDLQ D DOLCENot AvailableStart: 06-09-2025 End: 31-86-2759Uofitz flowsheetMarc D Dolce DPM FACFAS Work Phone: noms [facility] McKinneywnStart: 06-09-2025 End: 91-62-2214Jtddul flowsheetMarc D Dolce DPM FACFAS Work Phone: noms [facility] Centertart: 06-03-2025 End: 73-08-1662Badlhqwvn encounterNatalie A Felter SAMPLE DISPLAY PREPARER-SIDE PIECE COVERER Work Phone: noms [facility] DERMStart: 05-30-2025 End: 97-75-9836Lnocyu-up encounterTony Dupont MD Work Phone: [facility] Emergency MedicineComment on above: SPECIMEN FOR DERM PATHOLOGYStart: 05-29-2025 End: 40-43-8308Xgetbcsah encounterPatrica Engel MD Work Phone: [facility] Internal MedicineComment on above:Prescription ClarificationStart: 05-28-2025 End: 91-22-7468Lfkaonqsyp and management of inpatientVIDYLauren ARIE Facility:METROHealthStart: 72-70-9597Ismipnrre department patient visitUNKNOW PROVIDERFacility:METROHealthStart: 05-28-2025 End: 50-18-0496Ozeiqafdui and management of inpatientThomas Lake Camarena MD Work Phone: [phone] AComment on above:Rash and nonspecific skin eruption (Primary Dx); Adverse effect of drug, initial encounter; Abnormal electrocardiogram (ECG) (EKG); Abnormal electrocardiogram (ECG) (EKG); BRIAN (obstructive sleep apnea)Start: 05-28-2025 End: 43-66-6939Yjhnru outpatient new 30 minutesNatalie A Felter SAMPLE DISPLAY PREPARER-SIDE PIECE COVERER Work Phone: noms [facility] DERMComment on above:Rash and other nonspecific skin eruption (Primary Dx)Start: 05-28-2025 End: 94-59-6235rkaoorvmacYEKWLSS A FELTERNot AvailableStart: 05-27-2025 End: 77-19-6524Jnaghc outpatient visit 25 minutesLindsay BURNHAM Work Phone: Zakia Gomez [facility] - Medical OncologyComment on above:Endometrial cancer ([facility]-HCC) (Primary Dx); Encounter for postoperative careStart: 05-27-2025 End: 44-42-9830iuotdrjjkpFljonrJonn Gross PA-C Work Phone: [facility], A Department of [facility] HospitalStart: 05-26-2025 End: 07-92-7963Kseeuwjwr encounterMaharman Victor CMAMemorial Health [facility] Gy[facility]cology Oncology, A Department of [facility] HospitalStart: 13-00-9808arwnohnsdg [facility] Ambulatory PPGStart: 05-19-2025 End: 72-72-3001Qiypwu flowsheetMarc D Dolce DPM FACFAS Work Phone: noms ASC PODStart: 05-19-2025 End: 97-11-6324Rjvjfd flowsheetMarc D Dolce DPM FACFAS Work Phone: noms ASC PODStart: 05-19-2025 End: 42-51-4651kokfvsqkpyULMT D DOLCENot AvailableStart: 05-19-2025 End: 44-53-6924Ajfkrh outpatient visit 25 minutesMarc D Dolce DPM FACFAS Work Phone: noms NMA PODComment on above:Onychocryptosis (Primary Dx); Abscess, toe, left; Pain in left toe(s)Start: 05-14-2025 End: 36-80-0466Kulcnwhky encounterClary [facility] Gy[facility]cology, A Department of [facility] HospitalStart: 05-12-2025 End: 95-95-8641Fhrlchkyng and management of inpatientADAM C WALTERProMedica Buffalo HospitalStart: 05-08-2025 End: 72-57-5710dbfklsikznWNPD C [facility]OSPITALTERProMedica Buffalo HospitalStart: 05-08-2025 Encounter for other preprocedural examinationADAM [facility]ca [facility] HospitalStart: 05-08-2025 End: 30-61-2690Kyzvzlc encounter procedureMetro Pat Provider 9[facility] On [facility] Hospital PensacolawayComment on above:Pre-op testing (Primary Dx); Endometrial cancer ([facility]-HCC); Preop testingStart: 05-08-2025 End: 17-20-2080Zfgbeqe encounter statusMetro [address] [place], [place] [address]tart: 05-07-2025 End: 60-94-9978Crckvjcdo encounterMichele Ricardo Louisero Pre-Admission Clinic On [facility] Centertart: 05-01-2025 End: 16-04-2381Mwoqcy OnlyMalachi Snow MD Work Phone: [facility] Gynecology Oncology, A Department of [facility] HospitalComforest view hospital on above:Endometrial cancer (CMS-HCC) (Primary Dx); Preop testingStart: 05-01-2025 End: 88-38-5447Blhmbnq encounter statusAdaterry Snow MD Work Phone: [facility] Systemtart: 52-45-8262Kvakaoxeu for preprocedural laboratory examinationADATerry Garsia [facility] Columbustart: 04-30-2025 End: 97-40-7976Azymdn outpatient new 60 minutesAdam Ady Snow MD Work Phone: [facility] Gynecology Oncology, A Department of [facility] HospitalComforest view hospital on above:Endometrial cancer (CMS-HCC) (Primary Dx); Pre-procedure lab examStart: 04-30-2025 End: 87-89-9106tshtfytqzfSZQZ C [facility]FFEE HOSPITALHEMALATHASelect Medical [facility], Edwin Shawtart: 04-30-2025 End: 04-95-5954Trddbtq encounter statusMalachi Snow MD Work Phone: [facility] Systemtart: 04-21-2025 End: 10-16-1760Bunxyl Sara BURNHAM Work Phone: [facility] BCP OBStart: 04-21-2025 End: 26-23-9662Pcjstc Sara BURNHAM Work Phone: [facility] BCP OBStart: 04-21-2025 End: 99-45-4499Qstize follow up visit related to original Faviola BURNHAM Work Phone: noms BCP OBComment on above:Postoperative examination Start: 04-21-2025 End: 92-10-1832fngcggjeviDKF RAMEYNot AvailableStart: 04-11-2025 End: 05-86-9463Jtoiuaeuw Result EncounterCorey José Miguel DO Work Phone: [facility] External Department UnsolicitedStart: 04-11-2025 End: 83-35-6832Ermepkdal Result EncounterCorey José Miguel DO Work Phone: [facility] External Department UnsolicitedStart: 04-01-2025 End: 87-57-3085Qlpevwtuc Result EncounterCorey José Miguel DO Work Phone: [facility] External Department UnsolicitedStart: 04-01-2025 End: 70-93-9145Edsxxvqdj Result EncounterCorey José Miguel DO Work Phone: [facility] External Department UnsolicitedStart: 03-18-2025 End: 88-57-0872hkewwsoseeRQBLG FAZIONot AvailableStart: 03-18-2025 End: 62-18-5572Hxrnro outpatient visit 15 minutesCorey José Miguel DO Work Phone: [facility] BCP OBComment on above:Pre-op examination; Postmenopausal bleeding; Thickened endometriumStart: 03-18-2025 End: 04-60-5236Hcbongoqeivtt examination doneCorey José Miguel DO Work Phone: [facility] HealthcareStart: 03-18-2025 End: 57-01-3266veuvjzbqxaIUUT DOLCENot AvailableStart: 02-27-2025 End: 64-79-3253Xqasdd flowsheetCorey José Miguel DO Work Phone: [facility] BCP OBStart: 02-27-2025 End: 29-04-8389Gmrjer flowsheetCorey José Miguel DO Work Phone: [facility] BCP OBStart: 02-27-2025 End: 57-98-6398Zerdyk outpatient visit 15 minutesCorey José Miguel DO Work Phone: [facility] BCP OBComment on above:Postmenopausal bleeding Start: 02-27-2025 End: 19-63-1073afrutryybsYZMEZ FAZIONot AvailableStart: 07-08-2024 End: 02-97-7150KxfictYnwustff D Zahler DO Work Phone: [facility] NB OPHTComment on above:Age-related nuclear cataract of both eyesStart: 14-60-7664Qtmfbufjh for general adult medical examination without abnormal findingsDR RADHA HOYThe [facility] HospitalStart: 06-15-2022 End: 40-00-0557ggkmixqoydWF RADHA HOYFacility:X7Wnhhs: 06-15-2022 End: 67-62-4224Mtvdfnsfm for general adult medical examination without abnormal findingsDR RADHA HOYFacility:I4Uzglb: 07-07-2021 End: 20-99-4883feooitcbuvIL RADHA HOYFacility:H1 Procedures DateProcedureProcedure DetailPerforming ClinicianStart: 06-46-2833Qnahacuo kinase totalTayyab Taurus DO Work Phone: Start: 18-23-4214Ytxdbqllp b core antibody hbcab total Moiz Birmingham MD Work Phone: Start: 48-31-8702Fpip ia hepatitis b surface antigen Moiz Birmingham MD Work Phone: Start: 92-71-7876Hqxtt dip stick/tablet rgnt auto w/o microscopyHrell Birmingham MD Work Phone: Start: 19-10-0362Ywwwo of lactateJoalfonzo Arreola MD Work Phone: Start: 19-79-9354Kyh routine ecg w/least 12 lds trcg only w/o i&rJelisa Arreola MD Work Phone: Start: 97-92-8484S-reactive proteinJohn Arreola MD Work Phone: Start: 05-28-2025 End: 22-29-5079Ntydswmxexsln rate rbc non-automatedAndrew Johnathan DO Work Phone: Start: 97-55-2881Omzoypgjyo exam chest single view John Arreola MD Work Phone: Start: 90-05-8608Jbgvg metabolic panel calcium total Heidi Kaur SAMPLE DISPLAY PREPARER-SIDE PIECE COVERER Work Phone: Start: 38-57-7891Oweoant function panelAliulises Kaur SAMPLE DISPLAY PREPARER-SIDE PIECE COVERER Work Phone: Start: 16-37-4184Hdycku-up visitFollow-upCOURTNEY PAYNEStart: 18-27-0436Simynddf screenMetro 9Start: 02-62-5799Yhrvvbdb screenADAM EDYComment on above:Performed By: #### TSC #### [facility] ([id number]) [address] [place] [address] VIRStart: 16-42-0725Yahrb typing serologic Florian Salvador MD Work Phone: start: 81-14-0381Nhsqnewtcgkck metabolic panelAdaterry Snow MD Work Phone: Start: 28-59-2196LOTPNUDI ABORClayton Salvador MD Work Phone: start: 89-70-4942UFI CBC WITH AUTO DIFFCorey José Miguel DO Work Phone: Start: 19-61-7654XMT BASIC METABOLIC PANELCorey José Miguel DO Work Phone: Start: 67-31-9129JOX 12-LEADCorey José Miguel DO Work Phone: Excision of lymph nodeMichael NILL Extraction of cataractMichael NILL Total abdominal hysterectomy with bilateral salpingo-oophorectomyMichael NILL Plan of Treatment DateCare ActivityDetailAuthorStart: 34-34-1605Tvlqp panelCholesterolMetroHealth Start: 00-71-7099Jsjnb BMI ScreeningAdult BMI ScreeningProRegency Hospital [facility] Start: 91-96-7261Gkcnmvo ScreeningTobacco ScreeningFlower Hospitalca Health SystemStart: 65-63-5651Frscx BMI ScreeningAdult BMI ScreeningProDayton Children'S Hospitalca Health SystemStart: 52-98-7487Hajtqmb ScreeningTobacco ScreeningProDayton Children'S Hospitalca Health SystemStart: 05-01-3112Mymfk BMI ScreeningAdult BMI ScreeningProDayton Children'S Hospitalca Health SystemStart: 41-83-0979Haxjubg ScreeningTobacco ScreeningProDayton Children'S Hospitalca Health SystemStart: 24-22-9843Eobtntu ScreeningTobacco ScreeningProDayton Children'S Hospitalca Health SystemStart: 12-04-2025 End: 98-19-3050Psnktik encounter dtuzqzcda03/22/2026 1:20 PM EST Procedure Visit [facility] [address] [facility] [address] [place] [id number] Liborio Miranda, DPTerry [address] [facility] [address] [place] [address] [facility] CI PODIATRYStart: 09-04-2025 End: 24-56-8450Ktqowan encounter procedureNOMS CI PODIATRYComment on above: ArrivedStart: 24-79-0164Vveimxiyp vaccinationInfluenza Vaccine (#1)[facility] Start: 33-80-9311Cbbpqmxzx vaccinationNOMS HealthcareStart: 06-30-2025 End: 76-76-0420Agtfpbv encounter plnenahjl38/18/2025 9:00 AM EDT Office Visit [facility] - Medical Oncology [address] [place] [id number] Lindsay Rodriguez PA [address] [place] [address] [facility] - Medical OncologyStart: 06-09-2025 End: 54-23-5467Qijytut encounter procedureNOMS NMA PODComment on above:Arrived Start: 05-27-2025 End: 17-30-4295Zanjluc encounter uhgjrqcvm28/15/2025 11:30 AM EDT Office Visit [facility] - Medical Oncology [address] [place] [address] Lindsay Rodriguez PA [address] [facility], [place] [phone] (Work) [facility] - Medical OncologyStart: 05-12-2025 End: 82-56-0418Wrcitnqph to same day surgery waucau9605/12/2025 1:00 PM EDT - 05/12/2025 3:15 PM EDT Surgery [facility] Division of [facility] [address] [place] [address] Malachi Snow MD [address] [facility] [place] [address] DAVINCI HYSTERECTOMY SALPINGO OOPHORECTOMYProDayton Children'S Hospitalca [facility] Division of [facility] SouthComment on above:DAVINCI HYSTERECTOMY SALPINGO OOPHORECTOMYStart: 05-12-2025 End: 63-01-6869JPECOOW DISSECTION LYMPH NODE PELVIC SENTINELDAVINCI DISSECTION LYMPH NODE PELVIC SENTINEL ENDOMETRIAL ADENOCARCINOMA 05/12/2025 1:00 PM EDT [facility]: 05-12-2025 End: 20-01-3823SZRTPKY HYSTERECTOMY SALPINGO OOPHORECTOMYDAVINCI HYSTERECTOMY SALPINGO OOPHORECTOMY ENDOMETRIAL ADENOCARCINOMA 05/12/2025 1:00 PM EDTPFormerly [facility] Centertart: 21-53-8498Fjokeguowq hospital visit by vorozjayj66/30/2025 1:00 PM EDT Hospital Encounter [facility] [address] [place] [address] Malachi Snow MD [address] [facility] SciencesS[facility], [address] [place] [address] [facility] Division [facility]Start: 05-08-2025 End: 38-22-7655Ejlhwcr encounter xbhehzlsu05/26/2025 1:45 PM EDT Procedure visit [facility] [address] [place] [address] [place] [address]oeEesv[facility] Start: 04-30-2025 End: 11-25-6648OZ Abdomen and Pelvis W contrast IVCT abdomen and pelvis with contrast Imaging STAT Endometrial cancer (CMS-HCC) Expected: 04/30/2025,Expires: 04/30/2026[facility] SystemComment on above:Expected: 04/30/2025, Expires: 04/30/2026Start: 04-30-2025 End: 30-01-5534WW Chest limited W contrast IVCT chest with contrast Imaging STAT Endometrial cancer (CMS-HCC) Expected: 04/30/2025, Expires: 04/30/2026[facility] Work Phone: Comment on above:Expected: 04/30/2025, Expires: 04/30/2026Start: 04-21-2025 End: 23-89-0275Cebfbus encounter procedureNOMS BCP OBComment on above:Arrived Start: 03-18-2025 End: 51-39-2416Ttdapyn encounter qocghfckg14/06/2025 2:40 PM EDT Consult [facility] [address] [place] [address] Yovani Valdez, DO [address] [place], [place] [id number] [facility] BCP OBStart: 03-18-2025 End: 41-16-5265Qulwecvafwos / ancillary services gpnmebekds67/06/2025 2:00 PM EDT Ancillary Procedure [facility] [address] [facility] [place] [address] [facility] BCP OBStart: 02-27-2025 End: 26-97-6702FU PelvisUS Pelvis w/ TV Imaging Routine Postmenopausal bleeding Expected: 02/27/2025, Expires: 08/29/2025[facility] Work Phone: comment on above:Expected: 02/27/2025, Expires: 08/29/2025Start: 02-27-2025 End: 58-33-7546Gydsste encounter hxtylrbck74/17/2025 10:00 AM EDT Office Visit [facility] [address] [place] [phone] Yovani Valdez DO [address] [facility] [place] [address] ArrivedNOMS BCP OBComment on above:ArrivedStart: 07-22-2024 End: 69-15-3274Txeetds encounter kbsfqibcg33/09/2024 7:45 AM EDT Procedure Visit [facility] EXT DEP Arturo Echols, DO [address] [place] [address] [facility] EXT DEPStart: 09-86-0553ZHFNW- 19 Vaccine ( season)COVID-19 Vaccine ( season)[facility] Start: 45-12-4499Wbyhhbhto vaccinationInfluenza Vaccine (#1)[facility] Start: 17-41-9930Ckosry wellness visitAnnual Wellness Visit (G0438)[facility] Start: 82-96-2324Btje Risk ScreeningFall Risk ScreeningProDayton Children'S Hospitalca [facility] Start: 74-50-1377Jmmokvfgmpjv Vaccine: 65+ Years (1 of 1 - PCV)Pneumococcal Vaccine: 65+ Years (1 of 1 - PCV)NOM HealthcareStart: 40-50-2309Zkuysqihh for osteoporosisBone DensitometryMetroHealthStart: 92-88-3443Symplisdt B (HBV) Vaccine (optional start 60+ years)Hepatitis B (HBV) Vaccine (optional start 60+ years)[facility]HealthStart: 61-78-4114XDZ vaccine (adult) (1 - Risk 60-74 years 1- dose series)RSV vaccine (adult) (1 - Risk 60-74 years 1-dose series)[facility] Start: 79-41-2469Opooomshqsex vaccinationPneumococcal Vaccine(s) (50+ yrs) (1 of 1 - PCV)[facility]HealthStart: 45-12-2638Elmujrfuvyov Vaccine: 65+ Years (1 of 1 - PCV)Pneumococcal Vaccine: 65+ Years (1 of 1 - PCV)[facility]OM[facility] HealthcareStart: 18-82-9659Rdssqlmg (RZV) Vaccine (1 of 2)Shingles (RZV) Vaccine (1 of 2) [facility]HealthStart: 20-53-7572Otyjkaozs for malignant neoplasm of colonMetroHealth Start: 62-98-7010Rmtwohzrm for malignant neoplasm of breastNOMS HealthcareStart: 77-82-8634TBdE,Tdap and Td Vaccines (1 - Tdap)DTaP,Tdap and Td Vaccines (1 - Tdap)[facility] SystemStart: 76-00-3233Avnsfsqfp A (HAV) Vaccine (optional start 19+ years)Hepatitis A (HAV) Vaccine (optional start 19+ years)[facility] Start: 98-56-8199Shttw BMI Follow Up PlanAdult BMI Follow Up PlanKettering Health SystemStart: 51-61-2177Ypbim BMI ScreeningAdult BMI ScreeningProRegency Hospital Cleveland West SystemStart: 08-27-6086Pkgo BoosterTdap BoosterMetroHealthStart: 17-88-1793Ytnggazwmr ScreeningDepression ScreeningColumbus Regional Healthcare Systemtart: 33-15-2382Hmwurzgre for malignant neoplasm of colonNOMS Healthcare End: 27-09-5857Srvvnyef pathology procedureTHE HUNTINGTON HOSPITALBest Before Media SYSTEM Work Phone: comment on above:One time, now for 1 Occurrences starting 05/28/2025 until 05/28/2025, 1 completedBacteria identified in Urine by CultureTHE PARKVIEW [facility] SYSTEM Work Phone: comment on above:When Specimen Available/Needed for 1 Occurrences starting 5Basic metabolic 2000 panel - Serum or PlasmaBASIC METABOLIC PANEL Lab Routine Daily until discontinued starting 05/29/2025, 1 completedMetroHealthComment on above:Daily until discontinued starting 05/29/2025, 1 completed End: 24-92-9230RQR W Auto Differential panel - BloodCBC with auto diff Lab Routine Endometrial cancer (CMS-HCC) Preop testing 1 Occurrences starting until 05/01/2026[facility] Medical CenterKlip.in Work Phone: Comment on above:1 Occurrences starting 05/01/2025 until 05/01/2026BC W Auto Differential panel - BloodCOMPLETE BLOOD COUNT W/DIFF Lab Routine Daily until discontinued starting 05/29/2025, 1 completedTHE [employer] SYSTEM Work Phone: comment on above:Daily until discontinued starting 05/29/2025, 1 completed End: 01-39-4805Lppjaliusxkva metabolic 2000 panel - Serum or PlasmaComprehensive metabolic panel Lab Routine Endometrial cancer ([facility]-H[facility]) Preop testing 1 Occurrences starting 05/01/2025 until 05/01/2026[facility] HospitalQuick[facility] SystemComment on above:1 Occurrences starting 05/01/2025 until 05/01/2026 End: 90-52-5868Jziytiruxl includes GFR, serumCreatinine includes GFR, serum Lab Routine Endometrial cancer ([facility]-HCC) Pre-procedure lab exam 1 Occurrences starting 04/30/2025 until 04/30/2026[facility] HospitalQuick[facility] SystemComment on above:1 Occurrences starting 04/30/2025 until 04/30/2026 End: 47-69-5257POL 12 leadECG 12 lead ECG Routine Endometrial cancer ([facility]-HCC) Preop testing 1 Occurrences starting 05/01/2025 until 05/01/2026[facility] HospitalQuickMobile [facility] SystemComment on above:1 Occurrences starting 05/01/2025 until 05/01/2026 End: 47-64-5451DQM-1/MS-2/MSH-6/PMS2 (IHC)MLH-1/MS-2/MSH-6/PMS2 (IHC) Pathology and Cytology STAT Endometrial cancer ([facility]) 1 Occurrences starting 05/27/2025 until 05/27/2026[employer] Work Phone: Comment on above:1 Occurrences starting 05/27/2025 until 05/27/2026 Immunizations Immunization DateImmunizationNotesCare FcopebonQamujlsg48-91-3267ZBQL-MdD-0 (COVID-19) mRNA BNT-162b2 vaxMichael NILL [phone]-BzeznBluffton Hospital Surgery [place] 83-24-3512MGDN-CoV-2 (COVID-19) mRNA BNT-162b2 Davey TAMEZ 176-5486Ewzjuy-LetdhBluffton Hospital [facility] [place] 56-66-8530waspxmnah virus vaccine, unspecified formulationArturo Echols DO Work Phone: [facility] Payers DatePayer CategoryPayerPolicy [id number] Care Other (unspecified)[facility] [id number] 2023Medicare [id number] 2023Medicare FFSMEDICARE [id number] Health Insurance [id number] [id number] [id number]W587[id number] 2.16840.1.652675.3.57[id number] 2.840.1.769550.3.57[id number] 2.840.1.343199.3.57[id number] 2.840.1.640124.3.579.[id number] 2.840.1.739772.3.579.[id number] 2.840.1.200586.3.579.[id number] 2.840.1.991674.3.57[id number] 2.840.1.784330.3.579.[id number] 2.0.1.560489.3.579.[id number] 2.840.1.916387.3.579.2.26[id number] 2.840.1.217894.3.579.2.971[id number] 2.840.1.872736.3.579.[id number] 2.16.840.1.560972.3.579.2.[id number] 2.16.840.1.579998.3.579.2.589[id number] 2.16.840.1.025002.3.579.2.370953-65-8951Bbtdeqz58849930 2.16.840.1.601937.3.579.2.472210-98-7821Aheuwgq1659677 2.16.840.1.152240.3.579.2.302291-01-3397Ttanjbu7789874 2.16.840.1.485242.3.579.2.957357-33-8000Glrgpbh9008333 2.16.840.1.922293.3.579.2.995830-45-8234Jsaotzk36086103 2.16.840.1.882993.3.5[id number] Social History DateTypeDetailFacilityStart: 05-21-2024 End: 17-01-3919Lxjnhkr smoking status NHISEx-smokerNOMS Healthcare Work Phone: Start: 11-13-1973 End: 47-30-7621Sghhnuj of tobacco useCurrent smokerNOMS HealthcareStart: 11-13-1971 End: 80-91-1897Ppizjwl of tobacco useCigarette SmokerNOMS HealthcareStart: 05-21-2024 End: 81-77-5582Viaznpr use and exposureSmokeless tobacco non-userNOMS Healthcare Start: 05-21-2024 End: 66-30-1769Bqyzutwxa beverage intakeLifetime non-drinker (finding)[facility] HealthcareStart: 07-20-2023 End: 32-23-5568Aprpprh of Social functionNOMS HealthcareStart: 07-20-2023 End: 09-59-8845Lvnhpay use panelNOMS HealthcareStart: 30-76-3467Szx assigned at birthNot on fileNOMS HealthcareStart: 94-63-8587Zenkmof smoking status NHISNever smoked tobaccoProDayton Children'S Hospitalca [facility] SystemStart: 04-30-2025 End: 57-34-3274Bcizywqms beverage intakeEx-drinker (finding)[facility] GroupTie SystemStart: 75-02-5706DlhnayozhNvpjuqxOfxOxhami [facility] SystemStart: 06-18-2015 End: 44-62-2567CkhDdthec (finding)[facility] HospitalTobacco smoking status NHISTobacco smoking consumption unknownMetroHealth Work Phone: has the electric, gas, oil, or water company threatened to shut off services in your home in past 12MoNoMetroHealth(I/We) worried whether (my/our) food would run out before (I/we) got money to buy more. Never trueMetroHealthSexual OrientationParkview Health General Surgery [place] Goals DatePatient GoalDesired Activity/StatePersonal health goal Clinical Notes 02-27-2025 to 09-17-2025 Note Date & DrvhOhgtKyzrcysn80-41-0156 NoteGeneral Surgery Office/Clinic Note Chief Complaint consultation for colonoscopy HPI Staff 65 year old female presents on consultation from Dr. Iverson for screening colonoscopy. Denies abdominal or rectal pain. No rectal bleeding or change in bowel habits. Denies nausea, vomiting or weight loss. No previous colonoscopy. No known family history of colon cancer. History of Present Illness 65 yo female with h/o htn, hyperlipidemia, emphysema, GERD, BRIAN, referred for colorectal screening;patient denies change in bms or blood in stools, no abd complaints; abd operations significant for ADDY with bso; no previous colonoscopy; no asa, on ibuprofen prn; no tobacco use, no fmhx of GI malignancy or IBD. Review of Systems PHQ Score Initial Depression Screen Score: 0 SCORE ROS - Provider Constitutional: no fever, no sweats, no weight loss. Eyes: no glasses, no blurred vision, no visual loss. ENMT: no dentures, no hoarseness, no swallowing difficulties, no hearing loss, no ear infection(s),no nose bleeds. Cardiovascular: normal blood pressure, no chest pain, regular heartbeat, no heart murmur. Respiratory: no shortness of breath, no cough, no asthma, no wheezing. Gastrointestinal: no nausea, no vomiting, no diarrhea, no constipation, no blood in stool, no change in bowel habits, no abdominal pain, no hepatitis. Genitourinary: no kidney stones, no urine infection, no dysuria. Musculoskeletal: no pain, no weakness. Skin: no changing moles, no rash, no skin lumps. Neurologic: no seizures, no epilepsy, no headache. Psychiatric: no emotional or psychiatric problem. Heme/Lymph: no bleeding problems, no anemia, no blood clots, no transfusions. Allergy/Immunologic: no swollen lymph nodes/glands, no IV drug abuse. Other: Additional ROS info: Except as noted in the above Review of Systems and in the History of Present Illness, all other systems have been reviewed and are negative or noncontributory. Physical Exam Vitals & Measurements HR: 76(Peripheral) RR: 16 BP: 138/90 HT: 180 cm HT: 71 in WT: 286.601 lb WT: 130 kg BMI: 40.12 Respiratory: lungs CTA, respirations non labored. Cardiovascular: regular rate and rhythm, no murmur, no pedal edema or varicosities. Gastrointestinal: obese, soft, non distended, no tenderness, no masses, no palpable hernias, diastasis recti no, no hepatosplenomegaly; normal bs Musculoskeletal: normal gait, digits and nails without infection, nodes, cyanosis, clubbing. Skin: no rashes, no lesions, no ulcers, no subcutaneous nodules, induration. Psychiatric/Neuro: oriented to time, place, person, judgement normal, affect appropriate for age, insight intact, no focal deficits. Tests: , review of old records completed , Discussed surgical options, risks, and possible complications with patient. Assessment/Plan 1. Screening for malignant neoplasm of colon (Z12.11: Encounter for screening for malignant neoplasm of colon) plan colonoscopy under anesthesia, informed consent obtained. Follow-up No qualifying data available Problem List/Past Medical History Ongoing Class 3 obesity Essential hypertension Gastroesophageal reflux disease Hyperlipidemia Morbid obesity with BMI of 40.0-44.9, adult Obstructive sleep apnea syndrome Pulmonary emphysema Screening for malignant neoplasm of colon Tobacco user Historical No qualifying data Procedure/Surgical History Cataract extraction, Excision of lymph node, ADDY BSO - Total abdominal hysterectomy and bilateral salpingo-oophorectomy. Medications albuterol 0.083% Inh Sharda 3 mL, 2.5 mg= 3 mL, NEB, q6hr, PRN amLODIPine 5 mg Tab, 5 mg= 1 tab(s), Oral, Daily carvedilol 25 mg Tab, 25 mg= 1 tab(s), Oral, BID ibuprofen 600 mg Tab, 600 mg= 1 tab(s), Oral, TID, PRN Lasix 40 mg Tab, 40 mg= 1 tab(s), Oral, Daily losartan 100 mg Tab, 100 mg= 1 tab(s), Oral, Daily omeprazole 40 mg Cap-DR, 40 mg= 1 cap(s), Oral, Daily potassium chloride 10 mEq ER Tab, 10 mEq= 1 tab(s), Oral, BID Senexon-S oral tablet, 1 tab(s), Oral, BID simvastatin 20 mg Tab, 20 mg= 1 tab(s), Oral, qPM Vitamin D 50,000 intl units (1.25 mg) oral capsule, 07656 International_Unit= 1 cap(s), Oral, Daily Allergies Levaquin (unknown) clindamycin (Rash) penicillin (Diarrhea) sulfa drugs (unknown) Social History Alcohol - Denies Alcohol Use, 09/17/2025 Substance Abuse - Denies Substance Abuse, 09/17/2025 Tobacco Former smoker, quit more than 30 days ago Tobacco Use:. Never Smokeless Tobacco Use:. Cigarettes, 2per day. Started age 19.0 Years. Stopped age 35 Years., 09/17/2025 Family History Diabetes mellitus type 2: Mother and Brother. Heart disease: Mother. Multiple sclerosis: Sister. Primary malignant neoplasm of prostate: Father and Brother. Immunizations Vaccine Date Status SARS-CoV-2 (COVID-19) mRNA BNT-162b2 vax 11/20/2021 Recorded SARS-CoV-2 (COVID-19) mRNA BNT-162b2 vax 10/30/2021 RecordedEast Liverpool City HospitalComment on above:Result Comment: Electronically Signed By: DASHAWN LARES, Karan Delacruz\Date and Time Signed: 09/17/25 15:55 [id number] History of Present illness Narrative* CHACHA Velasquez - 06/30/2025 9:00 AM EDT Subjective: Delmis Mtz is a 65 y.o. female who is s/p a RSSV-OBC-INAJ on 05/12/25. Pathology: Stage IB grade 1 [...] 05/12/2025 Performed by Malachi Snow MD at [facility] DAVINCI ROBOTIC ASSISTED DISSECTION LYMPH NODE PELVIC SENTINEL Bilateral 05/12/2025 Performed by Malachi Snow MD at [facility] DILATION AND CURETTAGE OF UTERUS TONSILLECTOMY Past Medical History: Diagnosis Date Arthritis Cancer ([facility]) endometrial Cataract implants COPD (chronic obstructive pulmonary disease) ([facility]) GERD (gastroesophageal reflux disease) Hyperlipidemia Hypertension Obesity [...] Health Food Insecurity: Unknown (05/28/2025) Received from [facility] Hunger Vital Sign Worried About Running Out of Food in the Last Year: Never true Transportation Needs: Unknown (05/28/2025) Received from [employer] PRAPARE - Transportation Lack of Transportation (Medical): No Interpersonal Safety: Unknown (05/28/2025) Received from [employer] Humiliation, Afraid, Rape, and Kick questionnaire Emotionally Abused: No Housing Instability: Unknown (05/28/2025) [facility] Stability Vital Sign Unable to Pay [...] Patient Active Problem List Diagnosis Endometrial cancer ([facility]) Plan: Post op care - [...] CHACHA Velasquez 06/30/25 0907 documented in this encounterToledo Hospital07-28-2025 History of Present illness Narrative* Cuco Marin DPM FACFAS - 06/09/2025 2:20 PM EDT Images from the original note were not included. Patient: Delmis Mtz : 1960 PCP: Radha [...] covering quite well from her drug reaction. CLIFFORD Sepulveda documented in this encounterSt. Louis Behavioral Medicine InstituteAzehekcsbn27-84-8648 Telephone encounter Note* Telephone Encounter - Tony Dupont MD - 05/30/2025 2:12 PM EDT Discussed with pt inpatient. HvpvtQyoepa73-76-4134 Miscellaneous Notes* Telephone Encounter - Tony Dupont MD - 05/30/2025 2:12 PM EDT Discussed with pt inpatient. documented in this [id number] Telephone encounter Note* Telephone Encounter - Radhika [...] paper from ED visit: Clipped from Script: [id number] Miscellaneous Notes* Telephone Encounter - Radhika Baer [...] answer, lm on to return call to [phone]. See providers note. * Telephone Encounter - [...] a plan of action. documented in this [id number] Telephone encounter Note* Telephone Encounter - Maryana Mahan RN - 05/30/2025 10:57 AM EDT Called pt, no answer, lm on to return call to [phone]. See providers note. [facility] Work Phone: 1(613) 247-812107-18-2025 Telephone encounter Note* Telephone Encounter - Maryana [...] amount needed to complete the written protoc XugmkKmhbui09-77-5357 Telephone encounter Note* Telephone Encounter - Nirali [...] to follow up with pcp regarding prescription NgfgnYrrjsc03-21-4135 Telephone encounter Note* Telephone Encounter - Velma [...] as well as a plan of action. IingxTngkek48-04-9860 NoteDISCHARGE [address] [address] Drake Delmis Date of : 1960 65 year old female Attending Mario Engel MD Date of Admission 05/28/2025 Date of Discharge 05/29/2025 Hospital Problems as of 05/29/2025 * (Principal) Rash and nonspecific skin eruption BRIAN (obstructive sleep apnea) Discharge Procedure Orders Sleep Lab Studies Service Requests Standing Status: Future Referral Priority: Routine Referral Type: Service Level Authorization Referral Location: [facility] Number of Visits Requested: 2 Expiration Date: 05/29/26 No future appointments. Pt elected and instructed to follow up with her local recycling manager Condition at Discharge unchanged Symptoms to look [...] pruritic rash as a referral from a [place] [facility], with a pmhx of COPD, [...] MG tablet Ta (more content not included)...[facility]07-17-[facility] Hospital course Narrative* Apryl Coe MD - 05/29/2025 1:42 PM EDT Images from the original note were not included. DISCHARGE SUMMARY [address] [address] Delmis Mtz Date of : 1960 65 year old female Attending Mario Engel MD Date of Admission 05/28/2025 Date of Discharge 05/29/2025 Hospital Problems as of 05/29/2025 * (Principal) Rash and nonspecific skin eruption BRIAN (obstructive sleep apnea) Discharge Procedure Orders Sleep Lab Studies Service Requests Standing Status: Future Referral Priority: Routine Referral Type: Service Level Authorization Referral Location: [facility] Number of Visits Requested: 2 Expiration Date: 05/29/26 No future appointments. Pt elected and instructed to follow up with her local recycling manager Condition at Discharge unchanged Symptoms to look [...] pruritic rash as a referral from a [place] [facility], with a pmhx of COPD, [...] 05/29/2025 3:19 PM EDT documented in this [id number] Hospital Discharge instructions* Discharge Instructions* Apryl Coe [...] by video with Linda or with a recycling manager in your local area * Attachments The following attachments cannot be sent through Care Everywhere. * Adverse Drug Reactions Discharge Instructions, Adult (Israeli) documented in this [id number] NoteDermatology Progress Note Subjective: pt notes she [...] No oral erosions identified Labs/Imaging/Pathology: Reviewed in [facility], significant for: WBC 19.4 Preliminary biopsy read [...] with Dr. Greg Dupont MD [facility] History of Present illness Narrative* Tony [...] original note were not included. Internal Medicine Long Term Plan Note Patient: Delmis Mtz Admission Date: [...] MD Internal Medicine Resident PGY-2 Available via [employer] Subjective: HPI: Per patient, Noticed rash started 05/24/25 from lower abdomen, but liekly also started from back that she did notinitially notice, then spread all over her body including face and lower extremities. Rash not painful, intermittently itchy Went to Derm outpatient appt for rash, was instructed to come to ED for evaluation of skin rash concerning for SJS Per chart review, [employer] at at [facility] in [place] 05/28/25: -pt started oral clindamycin on 05/19/25; pt reports she was given this due to an operation on her toe and then stopped taking 05/25/25; pt also had a hysterectomy on 05/12/25 -s/p 2 steroid shots (one on Monday one on Monday), prednisone 10 mg (planned , cipro (for bladderinfection) hydroxyzine; OTC cortisone cream and spray, OTC Benadryl [facility] 05/27/25: -s/p a VGUE-FKJ-LJZG on 05/12/25. Pathology: Stage IB grade 1 [...] MICU Clifford Wyatt MD documented in this [id number] Consult note* Bennie Clark OT - 05/29/2025 [...] Appearance: supine in bed upon arrival, IV, lunchroom monitor, BP cuff, pulse ox, Alertness: WFL Affect: WNL Cooperation/Behavior: Appropriate dialogue with therapist and Pleasant and cooperative Communication: WFL Pain: Pain ratin/10, Location: no pain Pain Relief Interventions Implemented: None required; No pain at this time Self Care: Assistance Level Dep Max Mod Min CG CS DS VT I Set-Up Comment Feeding x Grooming/Hygiene x Seated EOB Bathing:UB x Simulated Bathing:LB x Simulated Dressing:UB x Managing gown Dressing: LB x Based on functional reach Toileting x Anticipate Transfers/Bed Mobility: Assistance Level Dep Max Mod Min CG CS DS VT I Set-Up Comment Toilet Transfers x Based [...] With Patients permission ordered no equipment via [employer] Order. If any questions contact [facility] DME Provider at [phone]. 05/29/2025 6 Clicks Daily Activity OT Help [...] Guard Assist/Supervision 4 - Non = Modified [place]/Independent ASSESSMENT: Patient is functionally appropriate for discharge home once medically cleared. No further Occupational Therapy Services reccommended at this time. PLAN: D/C OT able to discuss the evaluation findings and treatment plan with the patient/family. The patient/family did participate in the development of plan and goals. Bennie Clark OTR/L NA = Not Assessed, I = Independent, VT = Modified Independent, Sup = Supervised, Set [...] [2] History reviewed. No pertinent surgical history. [id number] Consult note* Bennie Clark OT - 05/29/2025 [...] Appearance: supine in bed upon arrival, IV, lunchroom monitor, BP cuff, pulse ox, Alertness: WFL Affect: WNL Cooperation/Behavior: Appropriate dialogue with therapist and Pleasant and cooperative Communication: WFL Pain: Pain ratin/10, Location: no pain Pain Relief Interventions Implemented: None required; No pain at this time Self Care: Assistance Level Dep Max Mod Min CG CS DS VT I Set-Up Comment Feeding x Grooming/Hygiene x Seated EOB Bathing:UB x Simulated Bathing:LB x Simulated Dressing:UB x Managing gown Dressing: LB x Based on functional reach Toileting x Anticipate Transfers/Bed Mobility: Assistance Level Dep Max Mod Min CG CS DS VT I Set-Up Comment Toilet Transfers x Based [...] With Patients permission ordered no equipment via [employer] Order. If any questions contact [facility] DME Provider at [phone]. 05/29/2025 6 Clicks Daily Activity OT Help [...] Guard Assist/Supervision 4 - Non = Modified [place]/Independent ASSESSMENT: Patient is functionally appropriate for discharge home once medically cleared. No further Occupational Therapy Services reccommended at this time. PLAN: D/C OT able to discuss the evaluation findings and treatment plan with the patient/family. The patient/family did participate in the development of plan and goals. Bennie Clark OTR/L NA = Not Assessed, I = Independent, VT = Modified Independent, Sup = Supervised, Set [...] reviewed. No pertinent surgical history. * Ofelia Siddiqui, [facility]-HAIR SALON MANAGER - 05/29/2025 9:17 AM EDTAssociated Order(s): IP HAIR SALON MANAGER SERVICE REQUEST SPEECH-LANGUAGE PATHOLOGY ACUTE CLINICAL SWALLOW EVALUATION AC7-412/1 Referral received, chart reviewed and history is noted. Reason for HAIR SALON MANAGER Consult: Decline in speech, cognition, or swallowing [...] She was in the Derm clinic at [facility] in [place] and sent for concerns of SJS. Pt [...] mechanism/Laryngeal Function: Dentition: Natural dentition Oral Health: Force and Moist Secretion management: Independently managing Cough: [...] None Known Precipitating: Skin Rash w/ edma Keene Swallow Protocol: State: Awake, alert, participatory Brief [...] either during or immediate after completion) *The Keene Swallow Protocol (YSP) is a standardized measure [...] ASSESSMENT: Impression: Pt found at bedside, informed HAIR SALON MANAGER that there were no complications during intake of breakfast (Sausage Muffin). RN present at beginning of session where pt pills presented- no overt s/s or pulmonary distress noted during pills. Pt participated in PO trials of regular thin for evaluation of swallowing safety and efficiency w/ no overt s/s of aspiration noted. Pt yields Pass on the Keene Swallow Protocol, which has a high sensitivity [...] discharges home, recommend Independent, no supervision [place]enton ANG, HAIR SALON MANAGER Student Student Statement: This student therapist collaborated with a licensed, supervising therapist for patient assessment and/or treatment per the identified POC, as appropriate. This document is not finalized until reviewed and cosigned by the licensed, supervising therapist. Paper Deliverer Statement: I was present and participated in the delivery of services for this encounter. In addition, I am responsible for the skilled judgment and assessment of all interventions provided. Ofelia Siddiqui M.A., [facility]-HAIR SALON MANAGER Speech Language Pathologist Pager: [phone] [facility] Secure Chat Office: [phone] [1] Current Facility-Administered Medications: predniSONE (DELTASONE) tablet, [...] Daily, Taurus, Yehuda, DO, 17 g at 7 senna (SENOKOT) tablet, 8.6 mg, Oral, Daily, Taurus, Yehuda, DO, 8.6 mg at 05/29/25917 acetaminophen (TYLENOL) tablet, 650 mg, Oral, Q4H PRN, Taurus, Yehuda, DO enoxaparin (LOVENOX) 40 MG/0.4ML injection 40 mg, 40 mg, Subcutaneous, BID, Taurus, Yehuda, DO, 40mg at 05/29/25918 * Shreya Knapp, [...] into trouble Patient Identified Goal(s): 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 If any questions contact [facility] DME Provider at [phone]. 05/29/2025 6 Clicks Basic Mobility PT Difficulty [...] NA = Not Assessed, I = Independent, VT = Modified Independent, Sup = Supervised, Set [...] for HTN, HLD, GERD who presented to [facility] with diffuse rash. Pt had hysterectomy for [...] and 50mg this morning. Pt sent to [facility] today by outside recycling manager to r/o SJS. Rash is pruritic/burning but is not painful or tender. Pt does not have blisters or erosions. Does not note ocular, oral, or urogenital symptoms. PMHx/Shx/FHx Reviewed in [facility], significant as above ROS: As noted [...] Pertinent Labs, imaging, and/or pathology: Reviewed in [facility], significant for: WBC 19.4 CRP 4.5 [...] procedure. Mayra Garza MD documented in this [id number] NoteOCCUPATIONAL THERAPY INITIAL EVALUATION Patient seen from [...] Appearance: supine in bed upon arrival, IV, lunchroom monitor, BP cuff, pulse ox, Alertness: WFL Affect: WNL Cooperation/Behavior: Appropriate dialogue with therapist and Pleasant and cooperative Communication: WFL Pain: Pain ratin/10, Location: no pain Pain Relief Interventions Implemented: None required; No pain at this time Self Care: Assistance Level Dep Max Mod Min CG CS DS VT I Set-Up Comment Feeding x Grooming/Hygiene x Seated EOB Bathing:UB x Simulated Bathing:LB x Simulated Dressing:UB x Managing gown Dressing: LB x Based on functional reach Toileting x Anticipate Transfers/Bed Mobility: Assistance Level Dep Max Mod Min CG CS DS VT I Set-Up Comment Toilet Transfers x Based [...] With Patients permission ordered no equipment via [employer] Order. If any questions contact [facility] DME Provider at [phone]. 05/29/2025 6 Clicks Daily Activity OT Help [...] Guard Assist/Supervision 4 - Non = Modified [place]/Independent ASSESSMENT: Patient is functionally appropriate for discharge home once medically cleared. No further Occupational Therapy Services reccommended at this time. PLAN: D/C OT able to discuss the evaluation findings and treatment plan with the patient/family. The patient/family did participate in the development of plan and goals. Bennie Clark OTR/L NA = Not Assessed, I = Independent, VT = Modified Independent, Sup = Supervised, Set up = Physical Assistance for Set-up Only, Min = Minimal Assistance, Mod = Moderate Assistance, Max = Max assistance; Dep = Dependent; AROM = Active Range of Motion;PROM=Passive Range of Motion; MMT = Manual Muscle Test; UB = Upper Body; LB = Lower Body [1] History r (more content not included)...[employer] [id number] Consult note* Ofelia Siddiqui CCC-HAIR SALON MANAGER - 05/29/2025 9:17 AM EDTAssociated Order(s): IP HAIR SALON MANAGER SERVICE REQUEST SPEECH-LANGUAGE PATHOLOGY ACUTE CLINICAL SWALLOW EVALUATION AC7-412/1 Referral received, chart reviewed and history is noted. Reason for HAIR SALON MANAGER Consult: Decline in speech, cognition, or swallowing Time In: 9:17 Time Out: 9:27 Session Duration: 10 minutes Patient correctly identified by patient stating name and date of . Date of Admit: 05/28/2025 History/Diagnosis:Delmis Mzt is a 65 year old female admitted [...] She was in the Derm clinic at [facility] in [place] and sent for concerns of SJS. Pt [...] mechanism/Laryngeal Function: Dentition: Natural dentition Oral Health: Force and Moist Secretion management: Independently managing Cough: [...] None Known Precipitating: Skin Rash w/ edma Keene Swallow Protocol: State: Awake, alert, participatory Brief [...] either during or immediate after completion) *The Keene Swallow Protocol (YSP) is a standardized measure [...] ASSESSMENT: Impression: Pt found at bedside, informed HAIR SALON MANAGER that there were no complications during intake of breakfast (Sausage Muffin). RN present at beginning of session where pt pills presented- no overt s/s or pulmonary distress noted during pills. Pt participated in PO trials of regular thin for evaluation of swallowing safety and efficiency w/ no overt s/s of aspiration noted. Pt yields Pass on the Keene Swallow Protocol, which has a high sensitivity [...] Independent, no supervision Denton Martino BA CSD, HAIR SALON MANAGER Student Student Statement: This student therapist collaborated with a licensed, supervising therapist for patient assessment and/or treatment per the identified POC, as appropriate. This document is not finalized until reviewed and cosigned by the licensed, supervising therapist. Paper Deliverer Statement: I was present and participated in the delivery of services for this encounter. In addition, I am responsible for the skilled judgment and assessment of all interventions provided. Ofelia Siddiqui M.A., [facility]-HAIR SALON MANAGER Speech Language Pathologist Pager: [phone] [facility] Secure Chat Office: [phone] [1] Current Facility-Administered Medications: predniSONE (DELTASONE) tablet, [...] senna (SENOKOT) tablet, 8.6 mg, Oral, Daily, TaurusDavidYehuda, DO, 8.6 mg at 05/29/25917 acetaminophen (TYLENOL) tablet, 650 mg, Oral, Q4H PRN, Taurus, Yehuda, DO enoxaparin (LOVENOX) 40 MG/0.4ML injection 40 mg, 40 mg, Subcutaneous, BID, David Condonyab, DO, 40mg at 05/29/25918 [id number] NoteSPEECH-LANGUAGE PATHOLOGY ACUTE CLINICAL SWALLOW EVALUATION AC7-412/1 Referral received, chart reviewed and history is noted. Reason for HAIR SALON MANAGER Consult: Decline in speech, cognition, or swallowing [...] She was in the Derm clinic at [facility] in [place] and sent for concerns of SJS. Pt [...] mechanism/Laryngeal Function: Dentition: Natural dentition Oral Health: Force and Moist Secretion management: Independently managing Cough: [...] None Known Precipitating: Skin Rash w/ edma Keene Swallow Protocol: State: Awake, alert, participatory Brief [...] either during or immediate after completion) *The Keene Swallow Protocol (YSP) is a standardized measure [...] ASSESSMENT: Impression: Pt found at bedside, informed HAIR SALON MANAGER that there were no complications during intake of breakfast (Sausage Muffin). RN present at beginning of session where pt pills presented- no overt s/s or pulmonary distress noted during pills. 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 If any questions contact [facility] DME Provider at [phone]. 05/29/2025 6 Clicks Basic Mobility PT Difficulty [...] NA = Not Assessed, I = Independent, VT = Modified Independent, Sup = Supervised, Set [...] [2] History reviewed. No pertinent surgical history. [id number] NotePHYSICAL THERAPY ACUTE EVALUATION Referral received, chart [...] into trouble Patient Identified Goal(s): 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 If any questions contact [facility] DME Provider at [phone]. 05/29/2025 6 Clicks Basic Mobility PT Difficulty [...] NA = Not Assessed, I = Independent, VT = Modified Independent, Sup = Supervised, Set [...] [2] History reviewed. No pertinent surgical history.[facility] 05-28-2025 History and physical note* Yehuda Condon DO - 05/28/2025 8:25 PM EDT Images from the original note were not included. [facility] Step Down Unit - H&P Patient: Delmis Mtz : 1960 Sex: female Room: [place] [address] Admission: 05/28/2025 Today: 05/28/2025 (Length of stay: 1 day(s)) HISTORY OF PRESENT ILLNESS: CHIEF COMPLAINT: Chief Complaint Patient presents with Generalized redness/erythema/rash Started clindamycin on 05/19. Rash all over body Monday morning. Stopped clindamycin Monday night. Saw doctor on Monday & received cortisone shot Monday & Monday. Monday started prednisone. Seen recycling manager at [facility] in [place] today & sent here for rustam sewell [...] She was in the Derm clinic at [facility] in [place] and sent for concerns of SJS. Pt [...] vomiting, new abdominal pain (Laparoscopic sites are crystalizer tender, but C/D/I), headache, dysphagia, and blurry [...] BMP due to BUN/Cr being grossly icteric (24/1.09), HFTs AST 72, ALT 79, Alk phosp 105, CRP 4.5, ESR 22, lactate 2.1, Skin biopsy pending, - EKG: NSR, RRR, Normal axis deviation, no acute ST changes, unspecified T wave inversions, normal R wave progression, normal QTc - Imaging: Chest x-ray (05/28/25) IMPRESSION: No acute radiographic abnormality identified. - Interventions: - Kashky -, derm consult, SDU admission, DDX: DRESS [...] R wave progression, normal QTc CONSULTS: IP HAIR SALON MANAGER SERVICE REQUEST ASSESSMENT AND PLAN: Delmis Mtz [...] DO PGY-1 Internal Medicine Stepdown Unit Pager [phone] [1] History reviewed. No pertinent past medical history. [2] History reviewed. No pertinent surgical history. [3] No family history on file. [4] [5] No current facility-administered medications on file prior to encounter. No current outpatient medications on file prior to encounter. [6] Allergies Allergen Reactions Bactrim [Sulfamethoxazole W-Trimethoprim] Clindamycin Levaquin [Levofloxacin] Penicillins [employer] Work Phone: 1(641) 866-641007-16-2025 History and physical note* Yehuda Condon DO - 05/28/2025 8:25 PM EDT Images from the original note were not included. [facility] Step Down Unit - H&P Patient: Delmis Mtz : 1960 Sex: female Room: [place] [address] Admission: 05/28/2025 Today: 05/28/2025 (Length of stay: 1 day(s)) HISTORY OF PRESENT ILLNESS: CHIEF COMPLAINT: Chief Complaint Patient presents with Generalized redness/erythema/rash Started clindamycin on 05/19. Rash all over body Monday morning. Stopped clindamycin Monday night. Saw doctor on Monday & received cortisone shot Monday & Monday. Monday started prednisone. Seen recycling manager at [facility] in [place] today & sent here for rustam sewell [...] She was in the Derm clinic at [facility] in [place] and sent for concerns of SJS. Pt [...] vomiting, new abdominal pain (Laparoscopic sites are crystalizer tender, but C/D/I), headache, dysphagia, and blurry [...] BMP due to BUN/Cr being grossly icteric (24/1.09), HFTs AST 72, ALT 79, Alk phosp 105, CRP 4.5, ESR 22, lactate 2.1, Skin biopsy pending, - EKG: NSR, RRR, Normal axis deviation, no acute ST changes, unspecified T wave inversions, normal R wave progression, normal QTc - Imaging: Chest x-ray (05/28/25) IMPRESSION: No acute radiographic abnormality identified. - Interventions: - Kashky -, derm consult, SDU admission, DDX: DRESS [...] R wave progression, normal QTc CONSULTS: IP HAIR SALON MANAGER SERVICE REQUEST ASSESSMENT AND PLAN: Delmis Mtz [...] DO PGY-1 Internal Medicine Stepdown Unit Pager [phone] [1] History reviewed. No pertinent past medical history. [2] History reviewed. No pertinent surgical history. [3] No family history on file. [4] [5] No current facility-administered medications on file prior to encounter. No current outpatient medications on file prior to encounter. [6] Allergies Allergen Reactions Bactrim [Sulfamethoxazole W-Trimethoprim] Clindamycin Levaquin [Levofloxacin] Penicillins documented in this [id number] Consult note* Mayra Garza MD - 05/28/2025 5:39 PM EDT Dermatology Inpatient Consult Attending: Dr. Mann Date of Service: 05/28/2025 Referred by: No referring provider defined for this encounter. Clinical Question: diffuse eruption HPI Delmis Mtz is a 65 year old female with a PMHx significant for HTN, HLD, GERD who presented to [facility] with diffuse rash. Pt had hysterectomy for [...] and 50mg this morning. Pt sent to [facility] today by outside recycling manager to r/o SJS. Rash is pruritic/burning but is not painful or tender. Pt does not have blisters or erosions. Does not note ocular, oral, or urogenital symptoms. PMHx/Shx/FHx Reviewed in Epic, significant as above ROS: As noted in [...] Pertinent Labs, imaging, and/or pathology: Reviewed in Epic, significant for: WBC 19.4 CRP 4.5 Assessment [...] portions of the procedure. Mayra Garza MD [facility] Work Phone: [phone]) 641-734107-16-2025 Emergency department Note* Latonya Norton EMR - 05/28/2025 3:[address] Ro CAMARENA notified of critical POTASSIUM value of 8.5 (HEMOLYZED). Hard copy of results given to Dr. Ro CAMARENA. AMINA Cosby [id number] Emergency department Note* CierraLatonya, EMR - 05/28/2025 3:[address] Ro CAMARENA notified of critical POTASSIUM value of 8.5 (HEMOLYZED). Hard copy of results given to Dr. Ro CAMARENA. Latonya Cierra, EMR * Heidi Kaur APRN-CNP - 05/28/2025 1:36 [...] role in this case. PLEASE SEE OTHER ATTENDING/RESIDENT/PHYSICIAN/SIDE PIECE COVERER/PA NOTATION ALEX House documented in this [id number] NotePhysician Triage Note The patient was seen [...] Donato. Rash is head to toe and krfat and itchy. Focused Exam: NAD, diffuse red [...] role in this case. PLEASE SEE OTHER ATTENDING/RESIDENT/PHYSICIAN/SIDE PIECE COVERER/PA NOTATION ALEX [facility]The [facility] Physician Emergency department Note* Heidi Kaur APRN-CNP [...] role in this case. PLEASE SEE OTHER ATTENDING/RESIDENT/PHYSICIAN/SIDE PIECE COVERER/PA NOTATION ALEX House [facility] Work Phone: [phone]) 718-403407-16-2025 History of Present illness Narrative* ALEX Thornton - 05/28/2025 10:40 AM EDT Images from [...] Importance of evaluation and possible admittance to [facility] stressed. Instructed patient to go to [facility] at this time. [facility] notified of patient pending arrival. Next Visit: prn for any new/changing lesions documented in this encounterSt. Louis Behavioral Medicine [id number] History of Present illness Narrative* CHACHA Velasquez - 05/27/2025 11:30 AM EDT Subjective: Delmis Mtz is a 65 y.o. female who is s/p a EUII-ZEF-HXVC on 05/12/25. Pathology: Stage IB grade 1 [...] 05/12/2025 Performed by Malachi Snow MD at [facility] ROB[facility]IC ASSISTED DISSECTION LYMPH NODE PELVIC SENTINEL Bilateral 05/12/2025 Performed by Malachi Snow MD at [facility] DILATION AND CURETTAGE OF UTERUS TONSILLECTOMY Past Medical History: Diagnosis Date Arthritis Cancer ([facility]) endometrial Cataract implants COPD (chronic obstructive pulmonary disease) ([facility]) GERD (gastroesophageal reflux disease) Hyperlipidemia Hypertension Obesity [...] Patient Active Problem List Diagnosis Endometrial cancer ([facility]) Pre-procedure lab exam Plan: Post op care [...] *This note was completed using a voice computer project manager system. Every effort was made to ensure accuracy. However, inadvertent computerized computer project manager errors may be present. Lindsay Rodriguez PA-C, RD, IF CHACHA Velasquez 05/27/25 1203 documented in this encounterToledo Hospital07-15-2025 Miscellaneous Notes* Tumor Conference Note - Shayna Gross PA-C - 05/27/2025 8:04 AM EDT Images from the original note were not included. Multidisciplinary Cancer Conference Center Note Patient Name: Delmis Mtz : 1960 Conference Type:FIRE EXTINGUISHER TECHNICIAN Conference Date: 05/27/25 Patient's Care Team: Patient Care Team: Radha Iverson MD as PCP - General (Family Medicine) Yovani Valdez DO as Referring Physician (Obstetrics & Gynecology) Physicians in attendance: Edy Jackson, Pb Oconnell Site/Laterality/Histology: Uterus Patient Presentation: Patient initially presented [...] regarding trials, Please call Clinical Research at [phone] National Guidelines discussed (NCCN, AUA, NCI, etc): [...] can be directed to the Cancer Registry: [phone] documented in this encounterFlower HospitalMakeGamesWithUs [id number] Progress note* Tumor Conference Note - Shayna Gross PA-C - 05/27/2025 8:04 AM EDT Images from the original note were not included. Multidisciplinary Cancer Conference Center Note Patient Name: Delmis Mtz : 1960 Conference Type:FIRE EXTINGUISHER TECHNICIAN Conference Date: 05/27/25 Patient's Care Team: Patient Care Team: Radha Iverson MD as PCP - General (Family Medicine) Yovani Valdez DO as Referring Physician (Obstetrics & Gynecology) Physicians in attendance: Edy Jackson, Pb Oconnell Site/Laterality/Histology: Uterus Patient Presentation: Patient initially presented [...] regarding trials, Please call Clinical Research at [phone] National Guidelines discussed (NCCN, AUA, NCI, etc): [...] can be directed to the Cancer Registry: [phone] [employer] Work Phone: [phone]) [phone] Miscellaneous Notes* Telephone Encounter - Barbara Victor CMA - 05/26/2025 10:46 AM EDT Patient let voicemail requesting pathology results. Top Inventory Control Executive called back and spoke to patient; informed her that Dr Snow has not left notes for us to share, but the provider at her appt tomorrow willbe able to answer her questions. Patient instructed investment underwriter to leave the results on her voicemail atthe end of the office workday and promptly ended the call before investment underwriter could respond. documented in this encounterWhite River Junction Va Medical CenterWatchGuard07-14-2025 Telephone encounter Note* Telephone Encounter - Barbara Victor CMA - 05/26/2025 10:46 AM EDT Patient let voicemail requesting pathology results. Top Inventory Control Executive called back and spoke to patient; informed her that Dr Snow has not left notes for us to share, but the provider at her appt tomorrow willbe able to answer her questions. Patient instructed investment underwriter to leave the results on her voicemail atthe end of the office workday and promptly ended the call before investment underwriter could respond. [facility]07-07-[facility] History of Present illness Narrative* Cuco Marin [...] < 3 seconds Digits 1-5 bilateral NEURO: Pesotum Zachery 5.07 monofilament was intact B/L. Vibratory [...] for reassessment. CLIFFORD Sepulveda documented in this encounterSt. Louis Behavioral Medicine [id number] Miscellaneous Notes* Telephone Encounter - Clary Aleman [...] and agreeable to plan. documented in this encounterToledo Hospital07-02-2025 Telephone encounter Note* Telephone Encounter - Clary [...] Patient verbalized understanding and agreeable to plan. [facility]06-26-2025 Instructions* Patient Instructions* Estrella Norton RN - 05/08/2025 1:45 PM EDT Images from the original note were not included. Your surgery/procedure is scheduled at [facility] on May 12 at 1 pm Arrival Time 11 am. [facility] Address: [address] [place] [address], [address] [place] [address] in the Emergency Center Parking lot. Report to the front office attendant in the Emergency/Surgery Registration lobby of the hospital. Notify your SURGEON if you develop any illness such as a cold, cough, fever, sore throat, vomiting or are hospitalized between now and your surgery. Please call Pre-Admission Clinic at [phone] if you have any questions prior to surgery. For questions the morning of surgery, call the Pre-op Department at [phone]. Medication Instructions (Do not stop your medications [...] piercings, hair extensions that contain metal, nail micronesian, make-up, and contact lens. You may brush [...] pets in your bed. Please be advised, [facility] has transitioned to a cashless payment system. [...] RIGHTS AND RESPONSIBILITIES As a patient at [facility], you have the right to: Receive medical care and be informed of who is taking care of you Be treated with dignity and respect Have a family member/retail wireless sales representative of choice and your physician notified of your admission Receive information and actively participate in decisions about your care and treatment Refuse care, treatment and services Decide who may provide your support and speak for you Access taoist and spiritual services Participate in ethical issues [...] of hospital charges and payment methods Patient/patient retail wireless sales representative responsibilities are to: Provide information [...] pets in your bed [facility] History of Present illness Narrative* Malachi Snow [...] Patient Active Problem List Diagnosis Endometrial cancer ([facility]-HCC) Pre-procedure lab exam Plan: 1. [...] procedures Referring and communicating with other health palliative care nurse practitioner (not separately reported) Documenting clinical information in the electronic or other health record Malachi Snow MD documented [facility] History of Present illness Narrative* CHACHA Alcantara [...] nursing note reviewed. Exam conducted with a balloon pilot present. Vitals: Estimated body mass index is 37.6 kg/m as calculated from the following: Height as of 07/04/23: 6' 1 . Weight as of this encounter: 285 lb. BP: 122/76 No LMP recorded. ASSESSMENT & PLAN ICD-10-CM 1. Postoperative examination Z09 Post Op Follow Up: Patient presents today for a postop follow up after having a D&C Hysteroscopy performed at [facility] with Dr. Valdez. Pathology results was reviewed with the patient in great detail and all restrictions have been lifted. Patient has referral appointment scheduled for DR Bautista on 04/30/25, due to adenocarncima of the endometrium. Follow Up: Patient is to return to the office for annual exam unless needed otherwise. Documented by CHACHA Alcantara on behalf of: CHACHA Alcantara documented in this encounterSt. Louis Behavioral Medicine [id number] History of Present illness Narrative* Rubi Cabrera LPN - 03/18/2025 2:40 PM EDT Reason for Appointment: Patient ID: Delmis Mtz is a 64 y.o. female who presents for Pre-op Visit Patient presents today for Pre Op appointment. Patient is scheduled to undergo D&C Hysteroscopy, possible Myosure on 04/11/[address] Valdez at [facility]. MEDICATIONS Current Outpatient Medications Medication Instructions [...] nursing note reviewed. Exam conducted with a balloon pilot present. Vitals: Estimated body mass index is [...] reviewed, and patient is to proceed to [facility] OR. Follow Up: Patient is to follow up between 1-2 weeks post operative to assess proper healing and recovery fromprocedure. Documented by Dina Dawson LPN on behalf of: Yovani Valdez DO documented in this encounterSt. Louis Behavioral Medicine [id number] History of Present illness Narrative* Rubi Cabrera [...] nursing note reviewed. Exam conducted with a balloon pilot present. Vitals: Estimated body mass index is [...] of: Yovani Valdez DO [facility]* Diagnosis Age-related nuclear cataract of both eyes documented in this encounter [facility]* Diagnosis Postmenopausal bleeding documented in this encounter [facility]* Diagnosis Pre-op examination Postmenopausal bleeding Thickened endometrium Nonspecific (abnormal) findings on radiological and other examination of genitourinary organs documented in this encounter [facility] HealthcareEvaluation note* Diagnosis Postoperative examination Follow-up examination, following unspecified surgery documented in this encounter [facility] Healthcare[facility]* Diagnosis Endometrial cancer (CMS-HCC)- Primary Malignant neoplasm of corpus uteri, except isthmus Pre-procedure lab exam Pre-procedural laboratory examination [facility] Endometrial cancer (CMS-HCC)- Primary Malignant neoplasm of corpus uteri, except isthmus Preop testing Unspecified pre-operative examination [facility] Diagnosis Pre-op testing- Primary Unspecified pre-operative examination Endometrial cancer (CMS-HCC) Malignant neoplasm of corpus uteri, except isthmus Preop testing Unspecified pre-operative examination [facility] Diagnosis Onychocryptosis- Primary Ingrowing nail Abscess, toe, left Pain in left toe(s) documented in this encounter [facility]* Diagnosis Endometrial cancer (CMS-HCC)- Primary Malignant neoplasm of corpus uteri, except isthmus Encounter for postoperative care documented in this encounter [facility]* Diagnosis Rash and other nonspecific [...] apnea (adult) (pediatric) [facility] Diagnosis Abscess, toe, left- Primary Onychocryptosis Ingrowing nail [facility]* Diagnosis Encounter for postoperative care- Primary documented in this encounter [facility]* Diagnosis Other specified disorders of synovium, left ankle and foot- Primary Pain due to onychomycosis of toenails of both feet documented in this encounter [facility] HealthcareHistory of Present illness Narrative* Liborio Miranda DPM - 09/04/2025 1:40 PM EDT Patient: Delmis Mtz : 1960 PCP: Radha [...] left ankle and states she has a Nobles type brace but does not wear it [...] file Food Insecurity: Unknown (05/28/2025) Received from [employer] Vital Sign Within the past 12 months, you worried that your food would run out before you got the money to buymore.: Never true Ran Out of Food in the Last Year: Not on file Transportation Needs: Unknown (05/28/2025) [facility] Lack of Transportation (Medical): No Lack of Transportation (Non-Medical): Not on file Physical Activity: Not on file Stress: Not on file Social Connections: Not on file Intimate Partner Violence: Unknown (05/28/2025) [facility] Humiliation, Afraid, Rape, and Kick questionnaire Fear of Current or Ex-Partner: Not on file Within the last year, have you been humiliated or emotionally abused in other ways by your partner or ex-partner?: No Physically Abused: Not on file Sexually Abused: Not on file Housing Stability: Unknown (05/28/2025) [facility] Stability Vital Sign In the last [...] 1 through 10 Patient encouraged to wear Nobles brace to the ankle of concern and [...] Daily, Disp: , Rfl: documented in this [facility]Pers[facility] Narrative No data available for this section [facility] Discharge instructions No data available for this section [facility] InstructionsNot on filedocumented in this encounter [facility] on filedocumented in this encounter [facility] on filedocumented in this encounter [facility]ructionsNot on filedocumented in this encounter [facility]Not on filedocumented in this encounter [facility]ructionsNot on filedocumented in this encounter [facility]ructionsNot on filedocumented in this encounter [facility] No data available for this section [facility] Summary Purpose Family History No Family History Records FoundNo Family History Records FoundNo Family History Records FoundNo Family History Records FoundNo Family History Records FoundNo Family History Records Found No data available for this section No Family History Records Found Advance Directives No Advanced Directives Records Found Date ActivatedDate InactivatedComments05/28/2025 9:56 PMQuestionAnswerComments Documentation of [...] section and content) DATE CREATED AUTHOR 06/19/2022 [facility] DATE CREATED AUTHOR AUTHOR'S ORGANIZ ATION 05/28/[address] [facility] DATE CREATED AUTHOR AUTHOR'S ORGANIZ ATION 06/01/2025 [facility] DATE CREATED AUTHOR AUTHOR'S ORGANIZ ATION 06/03/2025 [facility] DATE CREATED AUTHOR AUTHOR'S ORGANIZ ATION 06/30/2025 [facility] DATE CREATED AUTHOR AUTHOR'S ORGANIZ ATION 09/06/2025 [facility] DATE CREATED AUTHOR AUTHOR'S ORGANIZ ATION 09/19/2025 [facility] Reason for Visit (unrecogniz ed section and content) ReasonCommentsMed RefillReasonCommentsPMBReasonCommentsPre-op VisitReason CommentsPost-op VisitReasonCommentsNew PatientSpecialtyDiagnoses / Procedures Referred By ContactReferred To ContactOncology / Gynecologic Oncology Diagnoses Endometrial cancer ([facility]-H[facility]) [facility] Gynecology Oncology, A Department of [facility] [address] [address] Phone: tel: fax: [facility] Oncology, A Department of [facility] [address] [address] Phone: tel: fax: Referral IDStatusReasonStart DateExpiration DateVisits RequestedVisits [id number] Review Specialty Services Required /[id number] Generalized redness/erythema/rashStarted clindamycin on 05/19. Rash all over body Monday morning. Stopped clindamycin Monday night. Saw doctor on Monday & received cortisone shot Monday & Monday. Monday started prednisone. Seen recycling manager at [facility] in [facility] & sent here for rustam sewellSpecialty Diagnoses / ProceduresReferred By ContactReferred To ContactEmerbaptist health medical center Medicine Diagnoses Rash and other nonspecific skin eruption Procedures NA [place] [address] Phone: tel: [place] [address] Phone: tel: Referral IDStatusReasonStart DateExpiration DateVisits RequestedVisits [id number] DateCommentsPrescription Amujjoohbqpbg23/17/2025 ReasonCommentsFollow-up2 week avulsion follow upReasonCommentsToenail Care Care Teams (unrecognized sec tion and content) Team MemberRelationshipSpecialtyStart DateEnd Date Radha Iverson MD [address] [place] [id number] PCP - GeneralFamily Medicine07/04/23 Berta Lovelace MD [address] [place] [address] Referring PhysicianOptometry05/21/24Team MemberRelationshipSpecialtyStart DateEnd Date Radha Iverson MD [address] [facility] [place] [address] PCP - GeneralFamily Medicine07/04/23 Berta Rivero OD [address] [facility] [place] [address] Referring PhysicianOptometry05/21/24Team MemberRelationshipSpecialtyStart DateEnd Date Radha Iverson MD [address] [facility] [place] [address] PCP - GeneralFamily Medicine07/04/23 Berta Rivero OD [address] [facility] [place] [address] Referring PhysicianOptometry05/21/24Team MemberRelationshipSpecialtyStart DateEnd Date Radha Iverson MD [address] [facility] [place] [address] PCP - GeneralFamily Medicine07/04/23 Berta Rivero OD [address] [facility] [place] [address] Referring PhysicianOptometry05/21/24Team MemberRelationshipSpecialtyStart DateEnd Date Radha Iverson MD [address] [facility] [place] [address] PCP - GeneralFamily Medicine07/04/23 Berta Rivero OD [address] [facility] [place] [address] Referring PhysicianOptometry05/21/24Team MemberRelationshipSpecialtyStart DateEnd Date Radha Iverson MD PCP - Generalmily Medicine06/24/20Team MemberRelationshipSpecialtyStart DateEnd Date Radha Iverson MD PCP - Generalmily Medicine06/24/20Team MemberRelationshipSpecialtyStart DateEnd Date Radha Iverson MD PCP - Generalmily Medicine06/24/20Team MemberRelationshipSpecialtyStart DateEnd Date Radha Iverson MD PCP - Generalmi Medicine06/24/20Team MemberRelationshipSpecialtyStart DateEnd Date Radha Iverson MD [facility]06/24/20Team MemberRelationshipSpecialtyStart DateEnd Date Radha Iverson MD [address] [place] [address] [facility] - [facility] Medicine07/04/23 Berta Rivero OD [address] [place] [address] Referring PhysicianOptometry05/21/24Team MemberRelationshipSpecialtyStart DateEnd Radha Iverson MD [address] [place] [address] PCP - GeneralFamily Medicine07/04/23 Berta Rivero, OD [address] [place] [address] Referring PhysicianOptometry05/21/24Te MemberRelationshipSpecialtyStart DateEnd Radha Iverson MD PCP - GeneralMercyone [facility] Centerly Medicine06/24/20Team MemberRelationshipSpecialtyStart DateEnd Date Radha Iverson MD [address] [place] [address] PCP - [facility] Medicine07/04/23 Berta Rivero OD [address] [place] [address] Referring PhysicianOptometry05/21/24Te MemberRelationshipSpecialtyStart DateEnd Radha Iverson MD PCP - [facility] Medicine06/24/20 Scheduled Active and Recently Administ ered [...] BE BASED ON THE PRIMARY CLINICAL RECORDS. [employer] [facility]. provides no warranty or guarantee of the accuracy or completeness of information in this document.
== END 2025-10-14 10:47 | disposition home or self-care (01) ==
LOC: PST 10:47
PROVIDERS: PCP Family Medicine; Visit Provider Surgery
DX: Z01.818 Encounter for other preprocedural examination (principal); Z12.11 Encounter for screening for malignant neoplasm of colon

== ENCOUNTER 2025-10-22 06:38 | Day surgery (SDC) | payer MEDICARE, OTHER, SELFPAY ==
--- NOTE | 2025-10-22 | OP_ITS ---
OPERATION DATE: 10/22/2025 PREOPERATIVE DIAGNOSIS: Colorectal screening. POSTOPERATIVE DIAGNOSIS: A 1.2 cm sessile polyp in the proximal transverse colon, redundant colon, melanosis coli, as well as moderate sigmoid diverticulosis. PROCEDURE: Colonoscopy to cecum with cold snare polypectomy x1 for a proximal transverse colon polyp. SURGEON: Karan Bates M.D. ANESTHESIA: Monitored anesthesia care. ESTIMATED BLOOD LOSS: Less than 2 mL. INDICATIONS AND CONSENT: Patient is a 65-year-old female who presents for colorectal screening. Indications, risks, benefits, alternatives of proceeding with colonoscopy were explained extensively to the patient, including the risks of bleeding, colon perforation or anesthetic complications. All of her questions were answered. Informed consent was obtained. PROCEDURE: Patient brought to the operating room, placed in the left lateral decubitus position. Monitored anesthesia care was provided. Rectal exam was performed which showed no masses or blood. The scope was inserted into the anal canal. Under direct visualization was advanced. It was advanced to the cecum where cecal markings were clearly identified. There was noted to be a good prep. Upon withdrawal of the scope, mucosal surfaces were carefully examined. Within the proximal transverse colon, just beyond the hepatic flexure, there was noted to be a 1.2 cm irregular sessile polyp around a fold. This was removed in a piecemeal fashion with cold snare with good hemostasis. Larger pieces had to be removed with a Collier Net. Just distal to this, there was noted to be a 4 mm sessile polyp that was not removed because of the Collier Net. There were no other mass lesions or polyps noted. There was moderate sigmoid diverticulosis without inflammatory changes or scarring. The scope was retroflexed in the anal canal. There were noted to be prominent rectal veins. No significant hemorrhoidal disease. The scope was then withdrawn. Patient tolerated procedure well. She will require follow up colonoscopy in six months, due to the piecemeal removal of the large polyp, as well as to remove the additional transverse colon polyp. CC: Andres Lentz M.D. LIDIA
--- OUTSIDE RECORDS SUMMARY | 2025-10-22 06:42 | XMS_ITS | CCD ---
Author Organization [facility] Care Team Providers Care Mechanic'S Assistant Name Role Phone DR RADHA IVERSON Admitting Unavailable KISHOR, DR GARCIA Attending Unavailable KISHOR, DR GARCIA Referring Unavailable KISHOR, DR GARCIA Primary Care Unavailable KISHOR, DR GARCIA Consulting Unavailable KISHOR, DR GARCIA Admitting Unavailable KISHOR, DR GARCIA Attending Unavailable KISHOR, DR GARCIA Primary Care Unavailable KISHOR, DR GARCIA Consulting Unavailable Radha Iverson MD Primary Care Provider [phone] Berta Lovelace MD Unavailable Berta Rivero OD Unavailable Radha Iverson MD Primary Care Provider [phone] Radha Iverson MD Primary Care Provider [phone] RADHA IVERSON Referring Unavailable STUARTY, RADHA M [...] Unavailable ARIE, MARIO Attending Unavailable REQUEST, IP DIRECTOR OF INCOME TAX SERVICE Consulting Unavaila ble REQUEST, IP PHYSICAL THERAPY SERVICE Consulting Unavailable REQUEST, IP OCCUPATIONAL THERAPY SERVICE Consult ing Unavailable PROVIDER, UNKNOWN Admitting Unavailable PROVIDER, UNKNOWN Attending Unavailable LINDSAY RODRIGUEZ Attending Unavailable RADHA IVERSON Referring Unavailable STUARTY, RADHA M Primary Care Unavailable LINDSAY RODRIGUEZ Attending Unavailable STUARTY RADHA M Referring Unavailable HOY, RADHA M Primary Care Unavailable Radha Iverson MD Primary Care Provider [phone] CUCO MARIN Attending Unavailable LIBORIO MIRANDA Attending Unavailable DAVID AVILES Attending Unavailable CUCO MARIN Attending Unavailable BISI CABEZAS Attending Unavailable YOVANI VALDEZ Attending Unavailable YOVANI VALDEZ Attending Unavailable Radha Iverson Primary Care Physician Karan TAMEZ Attending Unavailable Allergies Allergy ClassificationReported Allergen(s)Allergy TypeDate of OnsetReaction(s) Facility (1 source)Sulfamethoxazole / TrimethoprimDrug Inubmes34-10-1945Lko [facility] Repository (20 sources)Penicillins; Translations: [PENICILLINS]Propensity to adverse jkltqannn78-48-3113[facility] (9 sources)PenicillinsPropensity to adverse reactions to movh69-44-5962MqnRuy[facility] (16 sources)levoFLOXacin; Translations: [LEVOFLOXACIN]Drug Gllqmtd26-75-2165 [facility] (14 sources)Sulfamethoxazole / Trimethoprim; Translations: [SULFAMETHOXAZOLE-TRIMETHOPRIM]Drug Rmbruif63-92-1847MymrffplNroEmfjho Health System (10 sources)Clindamycin; Translations: [CLINDAMYCIN]Drug Housahe52-08-9560Qppj, Eruption of skin (disorder)[facility] (1 source)SULFAMETHOXAZOLE W-TRIMETHOPRIM; Translations: [SULFAMETHOXAZOLE W-TRIMETHOPRIM]Propensity to adverse reactions to drug (disorder)53-59-3883Qqn [facility] Repository (2 sources)Penicillin; Translations: [penicillin]Drug AllergyDiarrhea (finding) [facility] (2 sources)Sulfonamide; Translations: [sulfa drugs]Drug allergyunknownFMount St. Mary Hospital (1 source)levoFLOXacin; Translations: [Levaquin][facility]rug [facility]ergySt[facility] Medications Current Medications MedicationDrug Class(es)DatesSig (Normalized)Sig (Original)albuterol 0.83 mg/ml inhalation solution (20 sources)beta2-Adrenergic AgonistStart: 46-86-1464lxjg 2.5 mg by inhalation every six hoursalbuterol [...] oral tablet (20 sources)Dihydropyridine Calcium Channel BlockerStart: 51-99-3566ehas 1 tablet by mouth once dailyamLODIPine 5 mg Tab 5 mg = 1 tab(s), Oral, Daily, Refills(s) 0 Start Date: 09/08/25 Status: OrderedMedication Dispense Status: Completed Total Allowed Fills: 1 Fills Dispensed: 0Start: 05-24-2023 End: 12-69-2343ycMDAXXnfs (Norvasc) 5 MG tablet 05/24/2023 Activeatorvastatin 10 mg oral tablet (5 sources)HMG-CoA Reductase InhibitorStart: 24-64-4783sfnz 1 tablet by mouth at bedtimeatorvastatin (LIPITOR) 10 MG tablet Take 1 Tablet by mouth at bedtime. 05/29/2025 Activeazithromycin 250 mg oral tablet (4 sources)Macrolide AntimicrobialStart: 47-72-2816bjawfwyohscy (ZITHROMAX) 250 mg tablet 2 tabs today then 1 tab Orally daily for 5 days 02/12/2025 Active carvedilol 25 mg oral tablet (20 sources)alpha-Adrenergic [place]ore[place], beta-Adrenergic BlockerStart: 09-08-2025 take 1 tablet by mouth twice dailycarvedilol 25 mg Tab 25 mg = 1 tab(s), Oral, BID, Refills(s) 0 Start Date: 09/08/25 Status: OrderedMedication Dispense Status: Completed Total Allowed Fills: 1 Fills Dispensed: 0Start: 96-19-7842jmcj 1 tablet by mouth twice dailyCARvedilol (COREG) 12.5 MG tablet Take 1 Tablet by mouth 2 times daily. 05/29/2025 ActiveStart: 04-11-2024 End: 06-72-2858tqtgnknujo (Coreg) 25 MG tablet 04/11/2024 ActiveStart: 05-31-2023 End: 90-37-2902zaem 1 tablet by mouth twice daily at mealtimecarvedilol (Coreg) 12.5 MG tablet TAKE 1 TABLET BY MOUTH TWICE A DAY WITH FOOD FOR 90 DAYS 05/31/2023 03/18/2025 Discontinuedcephalexin 500 mg oral tablet (2 sources)Cephalosporin AntibacterialStart: 31-67-0409qxtb 2 tablets by mouth twice dailycephalexin 500 mg tablet 2 tabs Orally bid for 10 days 05/27/2025 Activecholecalciferol 0.125 mg oral capsule (20 sources)Vitamin DStart: 75-93-6986CAF D3 125 MCG (5000 UT) capsule 04/13/2023 ActiveStart: 10-99-0092izzp 1 capsule by mouth once dailyCVS D3 125 MCG (5000 UT) capsule TAKE 1 CAPSULE BY MOUTH ONCE A DAY DIRECTED 04/13/2023 Activetake 1 tablet by mouth in the morningcholecalciferol, vitamin D3, 5,000 units tablet Take 1 tablet (5,000 Units total) by mouth in the morning. Active clindamycin 300 mg oral capsule (4 sources)Lincosamide AntibacterialStart: 05-19-2025 End: 29-74-7865snqi 1 capsule by mouth in the morning, [...] 05/29/2025 Activedocusate sodium 50 mg / sennosides, fdc 8.6 mg oral tablet (6 sources)Start: 30-42-0019tuzy 1 tablet by mouth twice dailySenexon-S oral tablet 1 tab(s), Oral, BID, Refill(s) 0 Start Date: 09/08/25 Status: Ordered Medication Dispense Status: Completed Total Allowed Fills: 1 Fills Dispensed: 0 Start: 54-93-3378qbqj 1 tablet by mouth in the morningsennosides-docusate [...] 40 mg oral tablet (20 sources)Loop DiureticStart: 39-14-5981jebj 1 tablet by mouth once dailyLasix 40 mg Tab 40 mg = 1 tab(s), Oral, Daily, Refills(s) 0 Start Date: 09/08/25 Status: Ordered Medication Dispense Status: Completed Total Allowed Fills: 1 Fills Dispensed: 0Start: 98-06-0617oovumthsgv (Lasix) 40 MG tablet 04/13/2023 ActivehydrOXYzine hydrochloride 25 mg oral tablet (2 sources)AntihistamineStart: 11-43-0185uvml 1 tablet by mouth four times daily as neededhydrOXYzine (ATARAX) 25 mg tablet 1 tablet as needed Orally qid for 10 days 05/27/2025 Activehyoscyamine sulfate 0.125 mg sublingual tablet (20 sources)Start: 51-20-6486riomosjeyso (Levsin) 0.125 MG SL tablet 02/20/2024 Activeibuprofen 600 mg oral tablet (20 sources)Nonsteroidal Anti-inflammatory DrugStart: 32-42-5456rioh 1 tablet by mouth three times daily as needed for painibuprofen 600 mg Tab 600 mg = 1 tab(s), Oral, TID, PRN as needed for pain, Refills(s) 0 Start Date:09/08/25 Status: Ordered Medication Dispense Status: Completed Total Allowed Fills: 1 Fills Dispensed: 0Start: 96-38-0414eixn 1 tablet by mouth every eight hours ibuprofen (MOTRIN) 800 mg tablet Take 1 tablet (800 mg total) by mouth every 8 (eight) hours. 30 tablet 05/12/2025 ActiveStart: 84-89-9776eqgr 1 tablet by mouth three times daily at mealtime as neededibuprofen (MOTRIN) 600 mg tablet TAKE 1 TABLET BY MOUTH 3 TIMES A DAY WITH FOOD OR MILK NEEDED 03/24/2025 Activeibuprofen 600 MG tablet every 8 (eight) hours Activeketorolac tromethamine 5 mg/ml ophthalmic solution (1 source)Nonsteroidal Anti-inflammatory Drug, Cyclooxygenase InhibitorStart: 07-08-2024 End: 86-42-3529wjck 1 drop(s) into the eye(s) in the morningketorolac (Acular) 0.5 % ophthalmic solution Indications: Age-related nuclear cataract of both eyes ADMINISTER 1 DROP INTO AFFECTED EYE(S) IN THE MORNING AND 1 DROP BEFORE BEDTIME. 5 mL 1 07/08/2024 08/07/2024 Activelosartan potassium 100 mg oral tablet (20 sources)Angiotensin 2 Receptor BlockerStart: 73-00-3852vsed 1 tablet by mouth once dailylosartan 100 mg Tab 100 mg = 1 tab(s), Oral, Daily, Refills(s) 0 Start Date: 09/08/25 Status: Ordered Medication Dispense Status: Completed Total Allowed Fills: 1 Fills Dispensed: 0Start: 97-92-1939hhbo 2 tablets by mouth once dailylosartan (COZAAR) 50 MG tablet Take 2 Tablets by mouth daily. 05/30/2025 ActiveStart: 08-08-9422idhp 100 mg by mouth once rebvm076 mg, Oral, DAILY, First dose on Mon05/29/25 at 0900, Until Discontinuedlosartan (Cozaar) 100 MG tablet 1 (one) time each day at the same time Activeomeprazole 40 mg delayed release oral capsule (10 sources)Proton Pump InhibitorStart: 12-43-7625mcgn 1 capsule by mouth once dailyomeprazole 40 mg Cap-DR 40 mg = 1 cap(s), Oral, Daily, Refills(s) 0 Start Date: 09/08/25 Status: Ordered Medication Dispense Status: Completed Total Allowed Fills: 1 Fills Dispensed: 0Start: 67-84-0724qrvswgbadx (PriLOSEC) 40 mg capsule TAKE 1 CAPSULE BY MOUTH EVERY DAY 30 MINUTES BEFORE MORNING MEAL 04/28/2025 ActiveoxyCODONE hydrochloride 5 mg oral tablet (1 source)Opioid AgonistStart: 05-12-2025 End: 08-24-0278ozxb 1 tablet by mouth every four hours as needed for pain oxyCODONE (ROXICODONE) 5 mg immediate release tablet Indications: Acute postoperative pain Take 1 tablet (5 mg total) by mouth every 4 (four) hours as needed for pain for up to 3 days. Max Daily Amount: 30 mg 12 tablet 05/12/2025 05/15/2025 ActivepredniSONE 20 mg oral tablet (8 sources)Start: 05-30-2025 End: 33-43-2292plfi 3 tablets by mouth once daily, then [...] Tablet 05/30/2025 06/18/2025 Active Start: 05-30-2025 End: 44-86-3274gvwjfhBFQD (DELTASONE) tabletStart: 05-29-2025 End: 54-11-5791ugdv 60 mg by mouth once daily60 mg, Oral, DAILY, First dose on Mon05/29/25 at 1030, Until DiscontinuedStart: 92-92-0978gjjsleUVUW (STERAPRED DS) 10 mg tablet pack 5 [...] mg oral tablet (20 sources)HMG-CoA Reductase InhibitorStart: 09-15-1979amdj 1 tablet by mouth once daily in the eveningsimvastatin 20 mg Tab 20 mg = 1 tab(s), Oral, qPM, Refills(s) 0 Start Date: 09/08/25 Status: Ordered Medication Dispense Status: Completed Total Allowed Fills: 1 Fills Dispensed: 0Start: 06-07-0852znao 1 tablet by mouth once dailysimvastatin (Zocor) 20 MG tablet Take 20 mg by mouth Daily 04/13/2023 Activetriamcinolone acetonide 1 mg/ml topical cream (5 sources)CorticosteroidStart: 38-58-2163fnxxrahacmfuo 0.1 % cream Apply topically 2 times daily. Apply thin layer to affected area. 454 g 05/29/2025 2:02 PM EDT 05/29/2025 ActiveStart: 16-26-0717xdiwf 1 dose topically twice daily Topical, 2 TIMES DAILY, First dose on Mon05/29/25 at 1030, Until Discontinued Completed/Discontinued Medications MedicationDrug Class(es)DatesSig (Normalized)Sig (Original)acetaminophen 325 mg oral tablet (6 sources)Start: 57-66-9515780 mg, Oral, EVERY 4 HOURS PRN, Starting on Mon05/28/25 at 2154, Until Discontinued, Mild Pain (pain score 1,2,3)Start: 12-79-4248mkrb 2 tablets by mouth every eight hoursacetaminophen (TYLENOL EXTRA STRENGTH) 500 mg tablet Take 2 tablets (1,000 mg total) by mouth every8 (eight) hours. 30 tablet 05/12/2025 ActivediphenhydrAMINE hydrochloride 25 mg oral capsule (1 source)Histamine-1 Receptor AntagonistStart: 05-28-2025 End: 74-36-0676eymr 1 dose by mouth once25 mg, Oral, Once, 1 dose, On Mon05/28/25 at 1410Start: 05-28-2025 End: 13-03-8381drsi 1 dose by mouth once25 mg, Oral, Once, 1 dose, [place] Mon05/28/25 [place] [address].4 ml enoxaparin sodium 100 mg/ml prefilled syringe (1 source)Low Molecular Weight HeparinStart: 30-88-5106vjutnk 40 mg by subcutaneous injection twice daily40 mg, Subcutaneous, 2 times daily, First dose on Mon05/28/25 at 2230, Until Discontinuedondansetron 4 mg disintegrating oral tablet (5 sources)Serotonin-3 Receptor AntagonistStart: 02-20-2024 End: 52-14-9526pumtnoqzswm ODT (Zofran-ODT) 4 MG disintegrating tablet DISSOLVE 1 TABLET ON THE TONGUE EVERY 6 HOURS NEEDED FOR NAUSEA FOR 3 DAYS 02/20/2024 03/18/2025 Discontinuedpantoprazole 40 mg delayed release oral tablet (1 source)Proton Pump InhibitorStart: 2420nsqa 40 mg by mouth once daily 30 minutes before lcxosacnn60 mg, Oral, DAILY 30 MIN BEFORE BREAKFAST, First dose on Mon05/29/25 at 0830, Until Discontinuedpolyethylene glycol 3350 48746 mg powder for oral solution (1 source)Osmotic LaxativeStart: g, Oral, DAILY, First dose on Mon05/28/25 at 2226, Until Discontinuedpotassium chloride 10 meq oral tablet (20 sources)Start: 37-18-9399tqbv 1 tablet by mouth twice dailypotassium chloride 10 mEq ER Tab 10 mEq = 1 tab(s), Oral, BID, Refills(s) 0 Start Date: 09/08/25 Status: Ordered Medication Dispense Status: Completed Total Allowed Fills: 1 Fills Dispensed: 0Start: 05-81-5088laya 1 tablet by mouth in the morningpotassium chloride CR (Klor-Con) 10 MEQ ER tablet Take 10 mEq by mouth in the morning and 10 mEq before bedtime. 05/31/2023 Activesennosides, fdc 8.6 mg oral tablet (1 source)Start: 57-55-7890vqko 8.6 mg by mouth once daily8.6 mg, Oral, DAILY, First dose on Mon05/28/25 at 2226, Until DiscontinuedVitamin D 50,000 intl units (1.25 mg) oral capsule (1 source)Start: 91-30-1162wpir 1 capsule by mouth once dailyVitamin D 50,000 intl units (1.25 mg) oral capsule 50,000 International_Unit = 1 cap(s), Oral, Daily, Refills(s) 0 Start Date: 09/08/25 Status: Ordered Medication Dispense Status: Completed Total Allowed Fills: 1 Fills Dispensed: 0 Problems Problem ClassificationProblemDateDocumented DateEpisodic/ChronicCancer of uterus (18 sources)Malignant neoplasm of endometrium of corpus uteri ; Translations: [Malignant neoplasm of endometrium]Onset: 283543-73-7905GrnxrtfPikirduz (20 sources)Bilateral age-related nuclear cataracts; Translations: [Age-related nuclear cataract, bilateral]Onset: 923147-75-7771RitzijhApdmxvd obstructive pulmonary disease and bronchiectasis (1 source)Pulmonary gegquftvf42-36-7073GrdvmrkMorzxxoyv of lipid metabolism (1 source)Vmosfsblbouxkf59-46-0175NiilzqbH Codes: Adverse effects of medical drugs (1 source)Adverse reaction to drug; Translations: [Adverse effect of unspecified drugs, medicaments and biological substances, initial encounter]05-28-2025 EpisodicEsophageal disorders (1 source)Gastroesophageal reflux kazupdf28-77-6888WddwdzjJilxmbrqp hypertension (1 source)Essential yuehqcjrgghy88-15-8496YeatoewFekoeizwzs disorders (3 sources)Postmenopausal bleeding; Translations: [Postmenopausal bleeding] 70-61-0014HftcwcwWlpqvgp (1 source)Pain in toe; Translations: [Tinea unguium]93-75-8727Ixpsdney Nutritional deficiencies (1 source)Vitamin D deficiency, unspecified; Translations: [VITAMIN D DEFICIENCY UNSPECIFIED]Onset: 28-72-8433PzdytbmLfruu aftercare (2 sources)Surgical follow-up; Translations: [Encounter for follow-up examination after completed treatment for conditions other than malignant neoplasm]51-22-4194HzutpxtuSpupp aftercare (2 sources)Postoperative visit; Translations: [Encounter for other specified surgical aftercare]50-85-4249XmxfoolvDhwez aftercare (1 source)Encounter for other specified surgical aftercare; Translations: [Encounter for other specified surgical aftercare]Onset: 74-67-8212DgizfesyNdsas connective tissue disease (2 sources)Pain of toe of left foot; Translations: [Pain in left toe(s)] 86-38-8340XkamzpuiVwlsg connective tissue disease (1 source)Disorder of musculoskeletal system; Translations: [Other specified disorders of synovium, left ankle and foot]06-15-6954UymgtvwfBgztx nervous system disorders (1 source)Other acute postprocedural pain; Translations: [Other acute postprocedural pain]Onset: 72-00-1388PkslitvaYrium nutritional; endocrine; and metabolic disorders (1 source)Obese class NWJ90-80-9240VfbqujsJinln screening for suspected conditions (not mental disorders or infectious disease) (1 source)Endometrium thickened; Translations: [Abnormal findings on diagnostic imaging of other specified body structures]17-54-0678AemnwadItsiz screening for suspected conditions (not mental disorders or infectious disease) (2 sources)Electrocardiogram abnormal; Translations: [Abnormal electrocardiogram [ECG] [EKG]]Onset: 333431-92-4233IjshavluHyxtw skin disorders (4 sources)Ingrowing nail; Translations: [Ingrowing nail]19-30-1771SoggifhjMlgja skin disorders (8 sources)Eruption; Translations: [Rash and other nonspecific skin eruption] Onset: 287325-26-5651ChfktaigMnlmcnxd codes; unclassified (8 sources)Obstructive sleep apnea syndrome; Translations: [Obstructive sleep apnea (adult) (pediatric)]Onset: 415617-33-0062LbrsanjCnhimmkq codes; unclassified (1 source)Pain, unspecified; Translations: [Pain, unspecified]Onset: 05-25-2025 EpisodicResidual codes; unclassified (1 source)Tobacco orrf93-72-7514HwgwqyjtDlzofji detachments; defects; vascular occlusion; and retinopathy (20 sources)Epiretinal membrane of left eye; Translations: [Puckering of macula, left eye]Onset: 791024-18-2279UsydbyxCgwx and subcutaneous tissue infections (4 sources)Abscess of toe of left foot; Translations: [Cutaneous abscess of left foot]60-21-0540PfllduzgPtbvolmdiiix (2 sources)Patient encounter zdzquy79-45-1246Vlefmejqgwgp (7 sources)Autogenerated ProblemOnset: 441817-30-6282Ewvnspyjcpak (1 source)ENDOMETRIAL ADENOCARCINOMAOnset: 25-34-6021Thnwopiyobrh (1 source)New PatientOnset: 04-30-2025 Results Test NameValueInterpretationReference RangeFacilityAmbulatory Visit Summaryon 77-41-8911Tgxgnvbgsp Visit SummaryAmbulatory Visit Summary DELMIS MTZ :1960 [...] signed up for this yet, please contact [employer] at [phone] to get signed up today. Language Information Language assistance services are available as needed. 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 [facility] Ever[employer] Internationalation Interface Message Text Situation: Patient returning missed [...] D/C paper from ED visit: Clipped from Script:[facility] Pyroliaation Interface Message TextCalled pt, no answer, lm on to return call to [phone]. See providers note.[facility] CenterProteoMediX Interface Message Apryl Yang MD to Me (Selected Message) 05/30/25 10:56 AM You can let her know that I reordered the prescription with the right amount of tablets - please tell her that if she already filled the first prescription with the 10 tablets to NOT take any extra tablets and to only take the amount needed to complete the written [facility] Pyroliaation Interface Message TextSituation: pt returning call, following [...] to follow up with pcp regarding prescriptionNormalThe [facility] HospitalBASIC METABOLIC PANELon 29-56-3430Pqybw gap [Moles/Vol]15 mmol/TNksxot16-99Tzd [facility] SystemComment on above:Performed By: #### YANDEL CAAT #### [facility] [address] [place] [address], [address]Vwftkjh [Mass/Vol]8.9 mg/dLNormal8.6-10.3The [facility] SystemComment on above:Performed By: #### YANDEL CAAT #### [facility] [address] [place] [address], [address]Umdufeki [Moles/Vol]106 mmol/DOhblbq86-229Bmd [facility] SystemComment on above:Performed By: ###YANDEL COXAT #### [facility] [address] [place] [address], [address]TY9 [Moles/Vol]23 mmol/EObnhcn09-89Usz [facility] SystemComment on above:Performed By: #### YANDEL CAAT #### [facility] [address] [place] [address], [address]Hwltuvuowv [Mass/Vol]0.94 mg/dLNormal0.60-1.20The [facility] SystemComment on above:Performed By: #### YANDEL CAAT #### [facility] [address] [place] [address], [address]UVYGSYQWX GFR (CKD-EPI)67 mL/min/1.73sqmNormal>=60The [facility] SystemComment on above:Result Comment: 2020 CKD [...] Med 1 Vol. 385 Issue 19 Pages 1734-0312Performed By: #### ROBY, CBCDSAT #### [facility] [address] [place] [address], [address]Symgqhz [Mass/Vol]130 mg/pDXfan87-074Xkl [facility] SystemComment on above:Performed By: #### ROBY, CBCDSAT #### [facility] [address] [place] [address], [address]Ldxiguton [Moles/Vol]4.2 mmol/LNormal3.5-5.0The [facility]ro[facility] SystemComment on above:Performed By: #### ROBY, CBCDSAT #### [facility] [address] [place] [address], [address]Mjhnce [Moles/Vol]140 mmol/TZipspj248-246Zes [facility] SystemComment on above:Performed By: #### ROBY, CBCDSAT #### [facility] [address] [place] [address], [address]Yvxv nitrogen [Mass/Vol]23 mg/dLNormal7-25The [facility] Hospitalro[facility] SystemComment on above:Performed By: #### ROBY, CBCDSAT #### [facility] [address] [place] [address], [address]Pgiig metabolic 2000 panelon 44-33-8413Puzfl gap [Moles/Vol]15 mmol/L10 - 20MetroHealthCalcium [Mass/Vol]8.9 mg/dL8.6 [...] Med 2020 Vol. 385 Issue 19 Pages 6981-0846 Glucose [Mass/Vol]130 mg/iQVbii67 - 109 mg/dLMetroHealthPotassium [Moles/Vol]4.2 mmol/L3.5 - 5.0 mmol/LMetroHealthSodium [Moles/Vol]140 mmol/L136 - 145 mmol/L MetroHealthUrea nitrogen [Mass/Vol]23 mg/dL7 - 25 mg/dLMetroHealthCBC WITH DIFFERENTIALOrdered By: Missy Burgess on 50-01-0973Xwukojfclyq distribution width (RBC) [Ratio]13.9 %11.5 - 14.5 [...] [#/Vol]19.4 10*3/uLHigh4.5 - 11.5 K/uLMetroHealthCBC WITH DIFFERENTIALon 37-90-2528Daxtkghrrjc distribution width (RBC) [Ratio]13.9 %Mfhsed78.5-14.5The MetroHealth SystemComment on above: Performed By: #### ROBY CBCZEKEAT #### [facility] [address] [place] [address], [address]Bdvcsxthoj (Bld) [Volume fraction]36.4 %Iunanm07.0-46.0 The [facility] SystemComment on above:Performed By: #### ROBY CBCZEKEAT #### [facility] [address] [place] [address], [address]Qsxjyojjzb (Bld) [Mass/Vol]12.2 g/gIBsjraa27.0-15.0The [facility] HospitalroHealth SystemComment on above:Performed By: #### YANDEL CAAT #### [facility] [address] [place] [address], [address]IWV (RBC) [Entitic mass]28.8 ijVyydvx64.0-34.0The [facility] HospitalroHealth SystemComment on above:Performed By: #### YANDEL CAAT #### [facility] [address] [place] [address], [address]UMVY (RBC) [Mass/Vol]33.5 g/gXLvoayn31.0-35.9The [facility] SystemComment on above:Performed By: #### YANDEL CAAT #### [facility] [address] [place] [address], [address]TUQ (RBC) [Entitic vol]86 yXNqmpqt73-916Fmi [facility] Hospitalro[facility] SystemComment on above:Performed By: #### YANDEL CAAT #### [facility] [address] [place] [address], [address]Jnkfdwyy mean volume (Bld) [Entitic vol]9.4 fLNormal 7.5-11.2The [facility] SystemComment on above:Performed By: ###YANDEL COXAT #### [facility] [address] [place] [address], [address]Lclvvppzo (Bld) [#/Vol]196 10*3/dVMonazs667-256Oxn [facility] SystemComment on above:Performed By: #### YANDEL CAAT #### [facility] [address] [place] [address], [address]JOE (Bld) [#/Vol]4.23 10*6/uLNormal4.00-5.20The [facility] SystemComment on above:Performed By: ###YANDEL COXAT #### [facility] [address] [place] [address], [address]PVC (Bld) [#/Vol]19.4 10*3/uLHigh4.5-11.5The [facility] SystemComment on above:Performed By: ###YANEDL COXAT #### [facility] [address] [place] [address], [address]WUMKQALS KINASEon 70-72-5089PP [Catalytic activity/Vol] 96 U/LMetroHealthCK [Catalytic activity/Vol]96 U/BNrnuui14-798Hxj [facility] HospitalroHealth SystemComment on above:Performed By: ###YANDEL COXAT #### [facility] [address] [place] [address], [address]XWC 12 LEAD - PERFORMon 08-72-1891AzbocqvpxEznriu sinus rhythm with sinus arrhythmia Low voltage QRS, consider pulmonary disease, pericardial effusion, or normal variant Nonspecific ST and T wave abnormality Abnormal ECG No previous ECGs available Confirmed by MARCELLA SHARIF ([id number]) on 05/29/2025 8:17:29 AM [facility] wave [facility]rium by AKZ44SWNJavswOagxmsN wave kzdg89jjcrugmCfsjfImybmtT- R Hiemrbgs066 msMetroHealthQ-T chfjqicb374 msMetroHealthQ-T interval corrected 419 msMetroHealthQRS dswo84lxgautpCdccrCthyxhGTI msMetroHealthT wave vspc76amiknvuWjjlpGmqlgqYdsugKysktnSMO Ab IA Qn (S)on 99-36-6501FHI Ab Ql (S) Non-ReactiveNonreactiveMetroHealthInterpretation and review of laboratory resultsNormalMetroHealthMetroHealthHEPATIC FUNCTION PANELon 40-54-1594Gstxewt [Mass/Vol]3.7 g/dL3.5 - 5.7 g/dLMetroHealthALP [Catalytic activity/Vol]99 U/L [facility]HealthALT [Catalytic activity/Vol]61 U/LHighMetroHealthAST [Catalytic activity/Vol]19 U/LMetroHealthBilirubin [Mass/Vol]0.6 mg/dL0.3 - 1.0 mg/dL MetroHealthBilirubin.direct [Mass/Vol]0.12 mg/dL0.03 - 0.18 mg/dLMetroHealth Protein [Mass/Vol]6 g/dL6.0 - 8.3 g/dLMetroHealthAlbumin [Mass/Vol]3.7 g/dL Normal3.5-5.7The [facility]Health SystemComment on above:Performed By: #### LUCIE CA #### [facility] [address] [place] [address], [address]EXS99 IU/DYbuzot35-283Vmv [facility] HospitalroHealth SystemComment on above:Performed By: #### YANDEL CAAT #### [facility] [address] [place] [address], [address]DHO [Catalytic activity/Vol]61 U/LHigh7-52The [facility]Health SystemComment on above:Performed By: #### YANDEL CAAT #### [facility] [address] [place] [address], [address]ANR [Catalytic activity/Vol]19 U/GEdsnjj99-93Nbh [facility] SystemComment on above:Performed By: #### YANDEL CAAT #### [facility] [address] [place] [address], [address]Fwhscqobn [Mass/Vol]0.6 mg/dLNormal0.3-1.0The [facility] HospitalroHealth SystemComment on above:Performed By: #### LUCIE CA #### [facility] [address] [place] [address], [address]Yyomirniz.direct [Mass/Vol]0.12 mg/dLNormal0.03-0.18The [facility] HospitalroHealth SystemComment on above:Performed By: #### LUCIE CA #### [facility] [address] [place] [address], [address]Lfszkky [Mass/Vol]6.0 g/dLNormal6.0-8.3The [facility] HospitalroHealth SystemComment on above:Performed By: #### LUCIE CA #### [facility] [address] [place] [address], [address]ZUTQKQFTW B CORE ANTIBODYon 06-95-9372KSF core Ab Ql (S)Non-ReactiveNonreactiveMetroHealthInterpretation and review of laboratory resultsNormalMetroHealthMetroHealthCORENon-ReactiveNormalNonreactiveThe [facility] HospitalroHealth SystemComment on above:Performed By: #### YANDEL CAAT #### [facility] [address] [place] [address], [address]KVVXUPUFL B SURFACE ANTIGENon 34-22-4939AVC surface Ag Ql (S)Fia-XzuivxjbPgz-LqsmjfqlKkwldVingetCynyfkrazidujv and review of laboratory gflvxenAyfujaArrzwEyaoliXykpjCnwjkhWBLHITzc-WnwxgnnpEzndzpYeg-ThikjprySgg [facility] HospitalroHealth SystemComment on above:Performed By: #### LUCIE CA #### S [facility] [address] [place] [address], [address]VAFKCPWXY C ANTIBODYon 88-56-0458IKJRmr-ReactiveNormal NonreactiveThe [facility] HospitalroRiverside Methodist Hospital SystemComment on above:Performed By: #### HCV #### [facility] [address] [place] [address], [address]DMEMGV DIFF AND MORPHon 07-87-4173UUT39.23 K/uL MetroHealthBand form neutrophils/100 WBC (Bld)1 %NINF [...] %High31.0 - 76.0 %MetroHealthRBC morphology finding Nom (Bld)UszbkpRbllzCzddmkKBE65.23 K/uLNormBucyrus Community Hospitale [facility] SystemComment on above:Performed By: #### YANDEL CAAT #### S [facility] [address] [place] [address], [address]JITVB % BY MANUAL COUNT1 %Normal<=10The [facility] SystemComment on above:Performed By: #### YANDEL CAAT #### [facility] [address] [place] [address], [address]BANWF ABS BY MANUAL COUNT0.19 K/uLHigh<0.01The [facility] SystemComment on above:Performed By: #### YANDEL CAAT #### [facility] [address] [place] [address], [address]VJBUC COUNTED TOTAL # IN GWDKQ599DppfkcEvpTrumbull Regional Medical Center SystemComment on above:Performed By: #### YANDEL CAAT #### [facility] [address] [place] [address], [address]XEAWLNXEGFI % BY MANUAL COUNT4.0 %Low24.0-44.0The [facility] SystemComment on above:Performed By: #### YANDEL CAAT #### [facility] [address] [place] [address], [address]VDLJFBBODZT ABS BY MANUAL COUNT0.78 K/uLLow1.00-4.80The [facility] SystemComment on above:Performed By: #### ROBY CBCDSAT #### [facility] [address] [place] [address], [address]ANACIBOZG % BY MANUAL COUNT2.0 %Normal2.0-11.0The [facility] SystemComment on above:Performed By: #### ROBY CBCDSAT #### [facility] [address] [place] [address], [address]ZZLFIRCHE ABS BY MANUAL COUNT0.39 K/uLNormal0.20-1.00 The [facility] SystemComment on above:Performed By: #### ROBY CBCDSAT #### [facility] [address] [place] [address], [address]GHELEZDCTFL % BY MANUAL COUNT93.0 %High31.0-76.0The [facility] SystemComment on above:Performed By: #### ROBY CBCDSAT #### [facility] [address] [place] [address], [address]EJYDYJDQTBK ABS BY MANUAL COUNT18.04 K/uLHigh1.50-8.00 The [facility] SystemComment on above:Performed By: #### ROBY CBCDSAT #### [facility] [address] [place] [address], [address]RJB MORPHOLOGYNormalNormalThe [facility] SystemComment on above:Performed By: #### ROBY CBCDSAT #### [facility] [address] [place] [address], [address]Ez Panel InformationOrdered By: Missy Burgess on 98-26-8845Jtohuingbxnhwx and review of laboratory resultsAbnormalMetroHealth [facility] HospitalNo Panel Informationon 20-85-3795Eltyudgnsqbtcf and review of laboratory resultsAbnormalMetroHealthInterpretation and review of laboratory resultsNormalMetroHealthMetroHealthPROTHROMBIN TIME AND INRon 91-31-9318FQE Coag (PPP) [Relative time]1.31 {INR}High0.90 - 1.10MetroHealthInterpretation and review of laboratory resultsAbnormalMetroHealthPT Coag (PPP) [Time]14.7 sHigh MetroHealthMetroHealthINR Coag (PPP) [Relative time]1.31 {INR}High0.90-1.10The [facility] SystemComment on above:Performed By: #### PT #### [facility] [address] [place], [address]WM Coag (PPP) [Time]14.7 sHigh9.7-12.9The [facility] SystemComment on above:Performed By: #### PT #### [facility] [address] [place], [address]Tefihaiq Noteson 18-65-6893Ilzjocuwzliwn Authentication Interface Message TextStepdown Unit ATTENDING NOTE MARIO ENGEL MD - PIN [id number] 65 year old female admitted 05/28/2025 with [...] recommended sleep study. Patient declines Preferred Language: Honduran I saw and evaluated the patient. I [...] Pulmonary, Critical Care and Sleep Medicine [facility] ABIM Diplomate in Pulmonary, Critical Care and Sleep MedicineNormBucyrus Community Hospitale [facility] Hospitalromycujoo SystemTelephone Encounteron [phone] Authentication Interface Message Textpatient is calling to [...] a plan of action.NormalThe [facility] SystemURIC ACIDon 90-15-0495Qpvbu [Mass/Vol]5.3 mg/dL2.3 - 6.6 mg/dLMetroHealthUrate [Mass/Vol]5.3 mg/dLNormal2.3-6.6The [facility] Hospitalromycujoo SystemComment on above:Performed By: #### ROBY, CBCDSAT #### S [facility] [address] [place] [address], [address]UEMEDCIVCO WITH REFLEX CULTURE PERFORMABLEon 05-29-2025 Appearance (U)ClearClearMetroHealthBilirubin [...] for UTI around 50%) MetroHealthMetroHealthGlucose Ql (U)NegativeNormalNegativeThe [facility] System Comment on above:Order Comment: A [...] #### MDIFF, CBCDSAT #### [facility] [address] [place] [address], [address]Hzrgwtj (U) [Mass/Vol]10 mg/dLNormalNegativeThe [facility] SystemComment on above:Order Comment: A negative [...] #### LUCIE CA #### [facility] [address] [place] [address], [address]KYAAPETV SCJSFJOBRJ83-16Jnskuguz8-71Rim [facility] SystemComment on above:Order Comment: A negative [...] around 50%)Performed By: #### LUCIE CA #### [facility] [address] [place] [address], [address]P APPEARClearNormalClearThe [facility] SystemComment on above:Order Comment: A negative [...] around 50%)Performed By: #### LUCIE CA #### [facility] [address] [place] [address], [address]W BILINegativeNormalNegativeThe [facility] System Comment on above:Order Comment: A [...] #### LUCIE CA #### [facility] [address] [place] [address], [address]R BLOODNegativeNormalNegativeWhittier Rehabilitation HospitalroRiverside Methodist Hospital System Comment on above:Order Comment: A [...] around 50%)Performed By: #### ROBY, YANDELAT #### [facility] [address] [place] [address], [address]T COLORYellowNormalColorlessWhittier Rehabilitation HospitalroRiverside Methodist Hospital System Comment on above:Order Comment: A [...] around 50%)Performed By: #### ROBY, CBCZEKEAT #### [facility] [address] [place] [address], [address]H KETONENegativeNormalNegativeThe [facility] HospitalroRiverside Methodist Hospital System Comment on above:Order Comment: A [...] #### ROBY, LUCIE #### [facility] [address] [place] [address], [address]K LEUKPositiveAbnormalNegativeCity Hospital System Comment on above:Order Comment: A [...] #### ROBY, LUCIE #### [facility] [address] [place] [address], [address]G MUCOUSPresentNormalThe [facility] SystemComment on above:Order Comment: A negative [...] #### ROBY, LUCIE #### [facility] [address] [place] [address], [address]X NITRITENegativeNormalNegativeCity Hospital System Comment on above:Order Comment: A [...] #### LUCIE CA #### S [facility] [address] [place] [address], [address]D PH5.5Aocyet2.0-8.0The [facility] SystemComment on above:Order Comment: A negative [...] around 50%)Performed By: #### LUCIE CA #### [facility] [address] [place] [address], RBCNone SeenNormal0-2The [facility] SystemComment on above:Order Comment: A negative [...] #### LUCIE CA #### [facility] [address] [place] [address], SG1.025Normal<=1.030The [facility] SystemComment on above:Order Comment: A negative [...] #### ROBY, LUCIE #### [facility] [address] [place] [address], [address]V UROBILINegativeNormalNegativeThe [facility] Comment on above:Order Comment: A [...] around 50%)Performed By: #### LUCIE CA #### [facility] [address] [place] [address], [address]U ZNN40-849Ktdzrwec3-0Tkf [facility] SystemComment on above:Order Comment: A negative [...] By: ##LUCIE GONZALEZ #### [facility] [address] [place] [address], [address]AAJAK CULTUREon 76-07-1903Utgqkviz identified Cx Nom (U)C URINE: 1,000 - 10,000 CFU/ml No significant growth; skin/urogenital contamination presentNormalThe [facility] SystemComment on above:Performed By: #### MDIFF, CBCDSAT #### [facility] [address] [place] [address], [address]BKZAD METABOLIC PANELon 54-28-8651Yrxxi gap [Moles/Vol] 14 mmol/UXftaje54-38Wmj [facility] SystemComment on above:Performed By: #### CH8, CRP #### [facility] [address] [place] [address], [address]Hxygjxd [Mass/Vol]8.8 mg/dLNormal8.6-10.3The [facility] HospitalroHealth SystemComment on above:Performed By: #### CH8, CRP #### [facility] [address] [place] [address], [address]Xuuxkhmr [Moles/Vol]105 mmol/FVtpcjo43-181Wek [facility] HospitalroHealth SystemComment on above:Performed By: #### CH8, CRP #### [facility] [address] [place] [address], [address]WV6 [Moles/Vol]23 mmol/PBtsbgo97-96Yya [facility] HospitalroHealth SystemComment on above:Performed By: #### CH8, CRP #### [facility] [address] [place] [address], [address]Asouunrrwy [Mass/Vol]0.95 mg/dLNormal0.60-1.20The [facility] SystemComment on above:Performed By: #### CH8, CRP #### [facility] [address] [place] [address], [address]DNGLAHBJR GFR (CKD-EPI)66 mL/min/1.73sqmNormal>=60The [facility] SystemComment on above:Result Comment: 2020 CKD [...] Med 1 Vol. 385 Issue 19 Pages 4520-0909Performed By: #### CH8, CRP #### [facility] [address] [place] [address], [address]Xyvgnfv [Mass/Vol]151 mg/hLIisw68-162Frp [facility] SystemComment on above:Performed By: #### CH8, CRP #### [facility] [address] [place] [address], [address]Dfxishiho [Moles/Vol]4.4 mmol/LNormal3.5-5.0The [facility] SystemComment on above:Performed By: #### CH8, CRP #### [facility] [address] [place] [address], [address]Yssran [Moles/Vol]138 mmol/NEksdsd165-297Cnz [facility] SystemComment on above:Performed By: #### CH8, CRP #### [facility] [address] [place] [address], [address]Xddk nitrogen [Mass/Vol]23 mg/dLNormal7-25The [facility] SystemComment on above:Performed By: #### CH8, CRP #### [facility] [address] [place] [address], [address]Rrkfk gap [Moles/Vol]16 mmol/QEjnted51-05Atr [facility] SystemComment on above:Performed By: #### HEPATIC, CH8 #### [facility] [address] [place] [address], [address]Cqmzyhi [Mass/Vol]8.7 mg/dLNormal8.6-10.3The [facility] SystemComment on above:Performed By: #### HEPATIC, CH8 #### [facility] [address] [place] [address], [address]Wrlolrie [Moles/Vol]104 mmol/OVytcte07-934Fze [facility] SystemComment on above:Performed By: #### HEPATIC, CH8 #### [facility] [address] [place] [address], [address]ZA7 [Moles/Vol]23 mmol/QKtipvx71-62Kxv [facility] SystemComment on above:Performed By: #### HEPATIC, CH8 #### [facility] [address] [place] [address], [address]Fuhewnroax [Mass/Vol]1.09 mg/dLNormal0.60-1.20The [facility] SystemComment on above:Result Comment: Grossly icteric; may falsely decrease creatininePerformed By: #### HEPATIC, CH8 #### [facility] [address] [place], [address]XNSYNVXCG GFR (CKD-EPI)56 mL/min/1.73sqmLow>=60The [facility] HospitalroHealth SystemComment on above:Result Comment: 2020 CKD [...] Med 1 Vol. 385 Issue 19 Pages 7310-7664Performed By: #### HEPATIC, CH8 #### [facility] [address] [place], [address]Yzqbspd [Mass/Vol]148 mg/qLSiwk21-393Lad [facility] HospitalroHealth SystemComment on above:Performed By: #### HEPATIC, CH8 #### [facility] [address] [place], [address]Ktctigbio [Moles/Vol]8.5 mmol/LCritically high3.5-5.0 The [facility] HospitalroHealth SystemComment on above:Result Comment: Hemolysis present Performed By: #### HEPATIC, CH8 #### [facility] [address] [place], [address]Ffheiu [Moles/Vol]134 mmol/IDtr507-580Ytt [facility] SystemComment on above:Performed By: #### HEPATIC, CH8 #### [facility] [address] [place], [address]Tqri nitrogen [Mass/Vol]24 mg/dLNormal7-25The [facility] SystemComment on above:Performed By: #### HEPATIC, CH8 #### [facility] [address] [place], [address]Reudz metabolic 2000 panelOrdered By: Shawna Baldwin on 74-06-2925Sadek gap [Moles/Vol]14 mmol/L10 - 20MetroHealthCalcium [Mass/Vol]8.8 mg/dL8.6 [...] Med 2021 Vol. 385 Issue 19 Pages 8789-8665 Glucose [Mass/Vol]151 mg/rHCvmd79 - 109 mg/dLMetroHealthInterpretation and review of laboratory resultsAbnormalMetroHealthPotassium [Moles/Vol]4.4 mmol/L 3.5 - 5.0 mmol/LMetroHealthSodium [Moles/Vol]138 mmol/L136 - 145 mmol/L MetroHealthUrea nitrogen [Mass/Vol]23 mg/dL7 - 25 mg/dLMetroHealthMetroHealth Basic metabolic 2000 panelOrdered By: Leno Gunn on 08-67-4403Hehvl gap [Moles/Vol]16 mmol/L10 - 20MetroHealthCalcium [Mass/Vol]8.7 mg/dL8.6 [...] Med 2020 Vol. 385 Issue 19 Pages 6896-4335 Glucose [Mass/Vol]148 mg/rNTvxs26 - 109 mg/dLMetroHealthInterpretation and review of laboratory resultsAbnormalMetroHealthPotassium [Moles/Vol]8.5 mmol/L Critically high3.5 - 5.0 mmol/LMetroHealthComment on above:Hemolysis present Sodium [Moles/Vol]134 mmol/FYzj366 - 145 mmol/LMetroHealthUrea nitrogen [Mass/Vol]24 mg/dL7 - 25 mg/dLMetroHealthMetroHealthC-REACTIVE PROTEINon 12-92-2405JZL [Mass/Vol]4.5 mg/dLHighNINF - 0.5 mg/dLMetroHealthInterpretation and review of laboratory resultsAbnormalMetroHealthMetroHealthCRP4.5 mg/dLHigh <0.5The [facility] SystemComment on above:Performed By: #### CH8, CRP #### [facility] [address] [place], [address]LFL WITH DIFFERENTIALon 89-84-7364Imemqzior (Bld) [#/Vol]0.02 10*3/uL0.00 - 0.20 K/uLMetroHealthBasophils/100 WBC [...] 8.00 K/uLMetroHealthNeutrophils/100 WBC (Bld)94.1 %High31.0 - 76.0 %[facility] Platelet mean volume (Bld) [Entitic vol]9.4 fL7.5 - 11.2 fLMetroHealthPlatelets (Bld) [#/Vol]200 10*3/uL150 - 400 K/uLMetroHealthRBC (Bld) [#/Vol]4.33 10*6/uL MetroHealthWBC (Bld) [#/Vol]19.4 10*3/uLHigh4.5 - 11.5 K/uLMetroHealth MetroHealthBasophils (Bld) [#/Vol]0.02 10*3/uLNormal0.00-0.20The [facility] HospitalroRiverside Methodist Hospital SystemComment on above:Performed By: #### CH8, CRP #### [facility] [address] [place] [address], [address]Agdwxrgtr/100 WBC (Bld)0.1 %Normal<=1.9The [facility] SystemComment on above:Performed By: #### CH8, CRP #### [facility] [address] [place] [address], [address]Yzyypewhwxg (Bld) [#/Vol]0.09 10*3/uLNormal0.00-0.70The [facility] SystemComment on above:Performed By: #### CH8, CRP #### [facility] [address] [place] [address], [address]Ofbqfmsonow/100 WBC (Bld)0.5 %Normal0.1-4.0The [facility] SystemComment on above:Performed By: #### CH8, CRP #### [facility] [address] [place] [address], [address]Hdflwzbqbsw distribution width (RBC) [Ratio]14.3 % Hrwhri37.5-14.5The [facility] SystemComment on above:Performed By: #### CH8, CRP #### [facility] [address] [place] [address], [address]Zcunaotwri (Bld) [Volume fraction]37.4 %Mnumaz86.0-46.0 The [facility] HospitalroHealth SystemComment on above:Performed By: #### CH8, CRP #### [facility] [address] [place] [address], [address]Whmimfkrsa (Bld) [Mass/Vol]12.4 g/ySTjkagu84.0-15.0The [facility] HospitalroHealth SystemComment on above:Performed By: #### CH8, CRP #### [facility] [address] [place] [address], [address]Asedrvknbhs (Bld) [#/Vol]0.59 10*3/uLLow1.00-4.80The [facility] HospitalroHealth SystemComment on above:Performed By: #### CH8, CRP #### [facility] [address] [place] [address], [address]Ywdafzwlzgd/100 WBC (Bld)3.1 %Low24.0-44.0The [facility] HospitalroHealth SystemComment on above:Performed By: #### CH8, CRP #### [facility] [address] [place] [address], [address]HXY (RBC) [Entitic mass]28.7 ijWailqd69.0-34.0The [facility] HospitalHealth SystemComment on above:Performed By: #### CH8, CRP #### [facility] [address] [place] [address], [address]KJEI (RBC) [Mass/Vol]33.3 g/rMYrwpgp30.0-35.9The [facility] HospitalroHealth SystemComment on above:Performed By: #### CH8, CRP #### [facility] [address] [place] [address], [address]AVX (RBC) [Entitic vol]86 rHBsuvyo01-878Mzj [facility] HospitalroHealth SystemComment on above:Performed By: #### CH8, CRP #### [facility] [address] [place] [address], [address]ADUHZZOH DISTRIBUTION JHITY48Vutx<=20The [facility] SystemComment on above:Performed By: #### CH8, CRP #### [facility] [address] [place] [address], [address]Zqwxjavue (Bld) [#/Vol]0.45 10*3/uLNormal0.20-1.00The [facility] SystemComment on above:Performed By: #### CH8, CRP #### [facility] [address] [place] [address], [address]Qmcnbiwjr/100 WBC (Bld)2.3 %Normal2.0-11.0The [facility] SystemComment on above:Performed By: #### CH8, CRP #### [facility] [address] [place] [address], [address]Eoritgbolkm (Bld) [#/Vol]18.20 10*3/uLHigh1.50-8.00The [facility] HospitalroHealth SystemComment on above:Performed By: #### CH8, CRP #### [facility] [address] [place] [address], [address]Mrsbkuilfuz/100 WBC (Bld)94.1 %High31.0-76.0The [facility] HospitalroHealth SystemComment on above:Performed By: #### CH8, CRP #### [facility] [address] [place] [address], [address]Ldcydkti mean volume (Bld) [Entitic vol]9.4 fLNormal 7.5-11.2The [facility] HospitalroHealth SystemComment on above:Performed By: #### CH8, CRP #### [facility] [address] [place] [address], [address]Iaifakwpy (Bld) [#/Vol]200 10*3/oNIfczxq319-702Esi [facility] HospitalroHealth SystemComment on above:Performed By: #### CH8, CRP #### [facility] [address] [place] [address], [address]ZQN (Bld) [#/Vol]4.33 10*6/uLNormal4.00-5.20The [facility] SystemComment on above:Performed By: #### CH8, CRP #### [facility] [address] [place] [address], [address]PAU (Bld) [#/Vol]19.4 10*3/uLHigh4.5-11.5The [facility] HospitalroHealth SystemComment on above:Performed By: #### CH8, CRP #### [facility] [address] [place] [address], [address]PWF panel Auto (Bld)Ordered By: Valente Spain on 77-39-0613Orirynhzlhnlhf and review of laboratory resultsAbnormalMetroHealth MetroHealthCOMPLETE BLOOD COUNTOrdered By: Valente Spain on 05-28-2025 Erythrocyte distribution width (RBC) [Ratio]14.2 %Datiud25.5-14.5[facility] Comment on above:Performed By: #### CBC #### [facility] [address] [place] [address], [address]Kccxedmsta (Bld) [Volume fraction]35.9 %Low36.0-46.0 MetroHealthComment on [facility]:Performed By: #### CBC #### [facility] [address] [place] [address], [id number] (Bld) [Mass/Vol]12.8 g/oLWztwxx66.0-15.0 [facility]:Performed By: #### CBC #### [facility] [address] [place] [address], [id number] (RBC) [Entitic mass]30.6 lxZcdsta96.0-34.0 [facility] on above:Performed By: #### CBC #### [facility] [address] [place] [address], [id number] (RBC) [Mass/Vol]35.6 g/cDUxsrdn90.0-35.9 [facility] on above:Performed By: #### CBC #### [facility] [address] [place] [address], [id number] (RBC) [Entitic vol]86 nHXtmvvk82-527CmzlqYbyavb Comment on above:Performed By: #### CBC #### [facility] [address] [place] [address], [phone] mean volume (Bld) [Entitic vol]8.9 fLNormal 7.5-11.2MetroHealthComment on above:Performed By: #### CBC #### S PATHOLOGY LABORATORY [address] [place], [address]Yxlteaxxe (Bld) [#/Vol]191 10*3/zQBygutk478-783 MetroHealthComment on above:Performed By: #### CBC #### S [facility] LABORATORY [address] [place], [address]QHQ (Bld) [#/Vol]4.17 10*6/uLNormal4.00-5.20[facility] Comment on above:Performed By: #### CBC #### S PATH[facility] LABORATORY [address] [place], [address]CIA (Bld) [#/Vol]22.2 10*3/uLHigh4.5-11.5[facility] Comment on above:Performed By: #### CBC #### [facility] [address] [place], [address]Tpzsoxrudd 31-06-6186Zpdujzfiglskg Authentication Interface Message TextDermatology Inpatient Consult Attending: Dr. Mann Date of Service: 05/28/2025 Referred by: No referring provider defined for this encounter. Clinical Question: diffuse eruption HPI Delmis Mtz is a 65 year old female with a PMHx significant for HTN, HLD, GERD who presented to [facility] with diffuse rash. Pt had hysterectomy [...] and 50mg this morning. Pt sent to [facility] today by outside tree wrapper to r/o SJS. Rash is pruritic/burning but is not painful or tender. Pt does not have blisters or erosions. Does not note ocular, oral, or urogenital symptoms. PMHx/Shx/FHx Reviewed in [facility], significant as above ROS: As noted in [...] Pertinent Labs, imaging, and/or pathology: Reviewed in [facility], significant for: WBC 19.4 CRP 4.5 Assessment [...] loredo portions of the procedure. Mayra Garza MDProtestant Deaconess HospitalED Noteson 05-28-2025 Lace Paper Machine Operator Authentication Interface Message TextDr. Ro CAMARENA notified of critical POTASSIUM value of 8.5 (HEMOLYZED). Hard copy of results given to Dr. Ro CAMARENA. Latonya Norton, [facility] Provider Noteson 05-28-2025 Lace Paper Machine Operator Authentication Interface Message Text Attestation signed by [...] Monday AND Monday. Monday started prednisone. Seen tree wrapper at [facility] in [place] today AND sent here for rustam sewell Mobile Game Engineer: not needed - patient preferred language is Honduran. The history is provided by the Patient. [...] reviewed and incorporated. Discussion with External Provider: Transit Mixer Operator from derm service pending final recs. Medication [...] not targetoid. Pityriasis less likely given no [place] patch, no [place] tree distribution, nonpruritic. Viral exanthem less likely given no aches, no fever. Zoster less likely given no vesicular lesions, nonderma (more content not included)...Normal The [facility] Hospitalmycujoo SystemERYTHROCYTE SEDIMENTATION RATEOrdered By: Madhuri Esposito on 67-17-8742SJL (Bld) [Velocity]22 mm/hNINFMetroHealthInterpretation and review of laboratory resultsNormalMetroHealthMetroHealthERYTHROCYTE SEDIMENTATION RATEon 45-15-0744WZE (Bld) [Velocity]22 mm/hNormal<=30The [facility] Children Hospitalmycujoo SystemComment on above:Performed By: #### CH8, CRP #### [facility] [address] [place] [address], [address]P AND Simeon 71-80-9029Adtuwblfitqzq Authentication Interface Message [facility] Step Down Unit - H AND P Patient: Delmis Mtz : 1960 Sex: female Room: [place] [address] Admission: 05/28/2025 Today: 05/28/2025 (Length of stay: 1 day(s)) HISTORY OF PRESENT ILLNESS: CHIEF COMPLAINT: Chief Complaint Patient presents with Generalized redness/erythema/rash Started clindamycin on 05/19. Rash all over body Monday morning. Stopped clindamycin Monday night. Saw doctor on Monday AND received cortisone shot Monday AND Monday. Monday started prednisone. Seen tree wrapper at [facility] in [place] today AND sent here for rustam sewell [...] She was in the Derm clinic at [facility] in [place] and sent for concerns of SJS. Pt [...] vomiting, new abdominal pain (Laparoscopic sites are drier take off tender, but C/D/I), headache, dysphagia, and blurry [...] content not included)...NormalThe [facility] SystemHEPATIC FUNCTION PANELon 05-51-3110Sxcglwk [Mass/Vol]4.1 g/dL3.5 - 5.7 g/dLMetroHealth ALP [Catalytic activity/Vol]105 U/LHighMetroHealthALT [Catalytic activity/Vol]79 U/LHighMetroHealthAST [Catalytic activity/Vol]72 U/LHighMetroHealthComment on above:Hemolysis presentBilirubin [Mass/Vol]0.7 mg/dL0.3 - 1.0 mg/dLMetroHealth Bilirubin.direct [Mass/Vol]mg/dL0.03 - 0.18 mg/dLMetroHealthInterpretation and review of laboratory resultsAbnormalMetroHealthProtein [Mass/Vol]6.9 g/dL6.0 - 8.3 g/dLMetroHealthMetroHealthAlbumin [Mass/Vol]4.1 g/dLNormal3.5-5.7The MetroHealth SystemComment on above:Performed By: #### HEPATIC, CH8 #### [facility] [address] [place] [address], [address]HNV921 IU/NJzjw95-270Daf Roc[facility] War Demonstration HospitalroHealth SystemComment on above:Performed By: #### HEPATIC, CH8 #### [facility] [address] [place] [address], [address]BEP [Catalytic activity/Vol]79 U/LHigh7-52The [facility] War Demonstration HospitalroHealth SystemComment on above:Performed By: #### HEPATIC, CH8 #### S [facility] LAB[facility]ATORY [address] [place] [address], [address]LAB [Catalytic activity/Vol]72 U/LBxjk35-96Abj [facility] War Demonstration HospitalroHealth SystemComment on above:Result Comment: Hemolysis presentPerformed By: #### HEPATIC, CH8 #### S [facility] LABORATORY [address] [place] [address], [address]Jvslhxywd [Mass/Vol]0.7 mg/dLNormal0.3-1.0The [facility] HospitalHealth SystemComment on above:Performed By: #### HEPATIC, CH8 #### [facility] [address] [place] [address], [address]CTLY< 0.37Cbtwce7.03-0.18The [facility] War Demonstration HospitalroHealth SystemComment on above:Performed By: #### HEPATIC, CH8 #### [facility] [address] [place] [address], [address]Hdscayq [Mass/Vol]6.9 g/dLNormal6.0-8.3The [facility] Demonstration HospitalroHealth SystemComment on above:Performed By: #### HEPATIC, CH8 #### [facility] [address] [place] [address], [address]NHAZLQ ACIDOrdered By: Destiny Myles on 05-28-2025 Interpretation and review of laboratory resultsAbnormalMetroHealthLactate [Moles/Vol]2.1 mmol/LHigh0.5 - 1.6 mmol/LMetroHealthThis test was developed, and its performance characteristics determined by the Department of Pathology of [facility]. It has not been cleared or approved by the FDA. This test is used forclinical purposes only.[facility] Demonstration HospitalroRiverside Methodist HospitalMetroHealthLACTIC ACIDon 15-30-8295IX LACT2.1 mmol/LHigh0.5-1.6The [facility] Hospitalmycujoo SystemComment on above: Order Comment: This test was developed, and its performance characteristics determined by the Department of Pathology of [facility]. It has not been cleared or approved by the FDA. This test is used for clinical purposes only.Performed By: #### LACT #### [facility] [address] [place], [address]Nlseoijj Noteson 55-76-7646Uswrsvtiatxpn Authentication Interface Message TextInternal Medicine Long-Term Plan Note Patient: Delmis Mtz Admission Date: [...] MD Internal Medicine Resident PGY-2 Available via WildTangent Subjective: HPI: Per patient, Noticed rash started 05/24/25 from lower abdomen, but liekly also started from back that she did not initially notice, then spread all over her body including face and lower extremities. Rash not painful, intermittently itchy Went to Derm outpatient appt for rash, was instructed to come to ED for evaluation of skin rash concerning for SJS Per chart review, Rubber Block Layer at at [facility] in [place] 05/28/25: -pt started oral clindamycin on 05/19/25; [...] OTC Benadryl [facility] 05/27/25: -s/p a JZJH-DLK-YQSF on 05/12/25. Pathology: Stage IB grade 1 [...] 79 AST 72 CRP 4.5 CXR wnlNormalThe Base CRM SystemTranscription Authentication Interface Message TextMICU Triage Note Unit Requested: MICU Triage Decision: MICU Final Disposition: MICU Luis MarkhamSouthampton Memorial HospitalLyrically Speakin Cafe & Lounge SystemXR CHEST AP OR PA 1 VIEWon [id number] CHEST AP OR PA 1 VIEWEXAMINATION: XR [...] images and agree with the resident's interpretation.NormalThe Base CRM SystemXR Chest Single viewon 05-28-2025 EXAMINATION: XR [...] Chest Single viewOrdered By: Estephania Alcantara on 67-93-1898OkkkgRvjjqj Work Phone: abo Rh Repeaton 82-84-1872VHITTduZmwvlf Health System Rh Nom (Bld)PositiveNationwide Children's HospitalProFayette County Memorial HospitalCOMPREHENSIVE METABOLIC PANELon 13-33-0579Vfmvfyj [Mass/Vol]4.1 g/dLNormal3.2-5.3PPomerene HospitalComment on above:Performed By: #### CMP #### [facility] ([facility]) [address] [place] [address] VIRALP [Catalytic activity/Vol]80 U/ULpijlw85-976VxxRfwngq Toledo HospitalComment on above:Performed By: #### CMP #### [facility] ([facility]) [address] [place] [address] VIRALT [Catalytic activity/Vol]10 U/LNormal<=31PPomerene HospitalComment on above:Performed By: #### CMP #### [facility] ([facility]) [address] [place] [address] VIRAnion gap [Moles/Vol]6 mmol/LNormal5-15ProSelect Medical Cleveland Clinic Rehabilitation Hospital, Edwin ShawComment on above:Performed By: #### CMP #### [facility] ([facility]) [address] [place] [address] VIRAST [Catalytic activity/Vol]13 U/LNormal<=41ProSelect Medical Cleveland Clinic Rehabilitation Hospital, Edwin ShawComment on above:Performed By: #### CMP #### [facility] ([facility]) [address] [place] [address] VIRBilirubin [Mass/Vol]0.6 mg/dLNormal0.3-1.2PPomerene HospitalComment on above:Performed By: #### CMP #### [facility] ([facility]) [address] [place] [address] VIRCalcium [Mass/Vol]9.0 mg/dLNormal8.5-10.5PKindred Hospital Dayton HospitalComment on above:Performed By: #### CMP #### [facility] ([facility]) [address] [place] [address] VIRChloride [Moles/Vol]105 mmol/JWkgtmt52-769LpxInbxtm [place]edo HospitalComment on above:Performed By: #### CMP #### [facility] ([facility]) [address] [place] [address] VIRCO2 [Moles/Vol]30 mmol/UTqklwb52-65ExbLopezw [facility] Comment on above:Performed By: #### CMP #### [facility] ([facility]) [address] [place] [address] VIRCreatinine [Mass/Vol]0.92 mg/dLNormal0.40-1.00ProSelect Medical Cleveland Clinic Rehabilitation Hospital, Edwin ShawComment on above:Result Comment: METHOD TRACEABLE TO IDMS STANDARDPerformed By: #### CMP #### [facility] ([facility]) [address] [place] [address] VIRGFR/1.73 sq M.predicted among non-blacks MDRD (S/P/Bld) [Vol rate/Area]68 mL/min/{1.73_m2}Normal>=60ProSelect Medical Cleveland Clinic Rehabilitation Hospital, Edwin ShawComment on above:Result Comment: Reported eGFR is based on the CKD-EPI 2020 equation that does not use a race coefficient.Performed By: #### CMP #### [facility] ([facility]) [address] [place] [address] VIRGlucose [Mass/Vol]105 mg/sWWxkv36-92JdrTrgjam [place] HospitalComment on above:Performed By: #### CMP #### [facility] ([facility]) [address] [place] [address] VIRPotassium [Moles/Vol]3.8 mmol/LNormal3.5-5.0ProOhiohealth O'Bleness Hospitalca Cambridge HospitalComment on above:Performed By: #### CMP #### [facility] ([facility]) [address] [place] [address] VIRProtein [Mass/Vol]7.0 g/dLNormal6.0-8.0ProKettering Health Hamilton HospitalComment on above:Performed By: #### CMP #### [facility] ([facility]) [address] [place] [address] VIRSodium [Moles/Vol]141 mmol/SQlmshk054-066MdiVmvwbl [place] HospitalComment on above:Performed By: #### CMP #### [facility] ([facility]) [address] [place] [address] VIRUrea nitrogen [Mass/Vol]16 mg/dLNormal5-27ProKettering Health Hamilton HospitalComment on above:Performed By: #### CMP #### [facility] ([facility]) [address] [place] [address] VIRComprehensive metabolic panelon 99-24-5799Gehjvqo [Mass/Vol] 4.1 g/dL3.2 - 5.3 g/dLProMedica Health SystemALP [Catalytic activity/Vol]80 U/L 39 - 130 U/LProMedica Health SystemALT No additional P-5'-P [Catalytic activity/Vol]10 U/LNINF - 31 U/LProMedica Health SystemAnion gap [Moles/Vol]6 mmol/L5 - 15 mmol/LProMedica Health SystemAST [Catalytic activity/Vol]13 U/LNINF - 41 U/LProMedlamar regional hospital Health SystemBilirubin [Mass/Vol]0.6 mg/dL0.3 - 1.2 mg/dL [facility] SystemCalcium [Mass/Vol]9 mg/dL8.5 - 10.5 mg/dLProTrihealth Good Samaritan Hospital SystemChloride [Moles/Vol]105 mmol/L98 - 109 mmol/[facility] SystemCO2 [Moles/Vol]30 mmol/L22 - 32 mmol/[facility] SystemCreatinine [Mass/Vol] 0.92 mg/dL0.40 - 1.00 mg/dLNationwide Children's HospitalComment on above:METHOD TRACEABLE TO [facility] STANDARDEGFR Non-Race Axydwgiww55- [facility] Comment on above:Reported eGFR is based on the CKD-EPI 2020 equation that does not use a race coefficient. Glucose [Mass/Vol]105 mg/gRYfbx92 - 99 mg/dLNationwide Children's Hospital Interpretation and review of laboratory resultsAbnormalNationwide Children's Hospital Potassium [Moles/Vol]3.8 mmol/L3.5 - 5.0 mmol/[facility] Health SystemProtein [Mass/Vol]7 g/dL6.0 - 8.0 g/dLMarymount Hospital SystemSodium [Moles/Vol]141 mmol/L134 - 146 mmol/[facility] SystemUrea nitrogen [Mass/Vol]16 mg/dL5 - 27 mg/dLUpper Allegheny Health SystemTYPE AND SCREENon 37-17-6862AKO_QTLYWGWixxhwMmwDgzqtz [place]edo HospitalComment on above:Performed By: #### TSC #### [facility] ([id number]) [address] [place] [address] VIRPerformed By: #### ABORHR #### [facility] ([id number]) [address] [place] [address] VIRRH_INTEPPositiveSelect Medical Specialty Hospital - Southeast OhioComment on above:Performed By: #### TSC #### [facility] ([id number]) [address] [place] [address] VIRPerformed By: #### ABORHR #### [facility] ([id number]) [address] [place] [address] VIRType and screen(includes indirect nathan)on 11-41-8188AICJ [facility] SystemRh Nom (Bld)PositiveProMedica [facility] Hospital SystemProTrihealth Good Samaritan Hospital SystemALL CBC WITH AUTO DIFFon 72-74-8323GIOHVINDR ABSOLUTE AUTO0.1NOMS HealthcareBasophils/100 WBC (Bld)0.8 %0.2 - 2.0 %NOMS HealthcareEosinophils/100 WBC (Bld)0.8 %Low0.9 - 7.0 %NOMS HealthcareErythrocyte distribution width (RBC) [Ratio]12.8 %11.0 - 15.0 %NOMS HealthcareHematocrit (Bld) [Volume fraction]39.4 %36.0 - 48.0 %NOMS HealthcareHemoglobin (Bld) [Mass/Vol]12.8 g/dL12.0 - 16.0 g/dLNOWY HealthcareIMMATURE GRANULOCYTES ABS AUTO0.03NOMS HealthcareImmature granulocytes/100 WBC (Bld)0.5 %0.0 - 0.5 %NOMS HealthcareInterpretation and review of laboratory resultsAbnormalNOWY HealthcareLYMPHOCYTES ABSOLUTE AUTO1.1 LowNOMS HealthcareLymphocytes/100 WBC (Bld)17.2 %Low20.5 - 60.0 %[facility] MCH (RBC) [Entitic mass]28.9 pg26.7 - 34.0 pgNOMS German HospitalMCHC (RBC) [Mass/Vol]32.5 g/dL29.9 - 35.2 g/dLNOWY HealthcareMCV (RBC) [Entitic vol]88.9 fL 81.0 - 99.0 fLNOWY HealthcareMONOCYTES ABSOLUTE AUTO0.4N[facility] Healthcare Monocytes/100 WBC (Bld)6.2 %1.7 - 12.0 %NOMS HealthcareNEUTROPHILS ABSOLUTE AUTO 4.6NOMS HealthcareNeutrophils/100 WBC (Bld)74.5 %43.0 - 75.0 %[facility] Platelet mean volume (Bld) [Entitic vol]10.7 fL9.5 - 13.5 fLNOMS HealthcareTBH EO #0.1NOMS HealthcareTBH VRT201IBUM HealthcareTBH RBC4.43NOMS HealthcareTB WBC 6.1NOMS HealthcareCLINISYNCNBROOKHAVEN HOSPITAL [facility] HealthcareALL BASIC METABOLIC PANELon 04-01-2025 Anion gap [Moles/Vol]14.7 mmol/LNOMS HealthcareCalcium [Mass/Vol]9 mg/dL8.5 - 10.1 mg/dLNOWY HealthcareChloride [Moles/Vol]105 mmol/L98 - 107 mmol/LNOMS HealthcareCO2 [Moles/Vol]29.7 mmol/L21.0 - 32.0 mmol/LNOMS HealthcareCreatinine [Mass/Vol]0.91 mg/dL0.55 - 1.02 mg/dLNOWY HealthcareGFR/1.73 sq M.predicted CKD- EPI (S/P/Bld) [Vol rate/Area]>60>=60 mL/min/1.73m 2NOMS HealthcareGlucose [Mass/Vol]112 mg/tWHcio08 - 106 mg/dLNOWY HealthcareInterpretation and review of laboratory resultsAbnormalNOMS HealthcarePotassium [Moles/Vol]4.4 mmol/L3.5 - 5.1 mmol/LNOMS HealthcareSodium [Moles/Vol]145 mmol/L136 - 145 mmol/LNOMS HealthcareTBH EGFR-NON AF [place]I>60>=60 mL/min/1.73m 2NOMS HealthcareUrea nitrogen [Mass/Vol]19 mg/dLHigh7.0 - 18.0 mg/dLNOWY HealthcareUrea nitrogen/Creatinine [Mass ratio]20.9 mg/mgNOWY HealthcareCLINISYNMUSC Health Columbia Medical Center DowntownECG 12-LEADon 32-78-0288CdsE[place], [place] [address] Electrocardiograph Report Signed Patient: DELMIS MTZ MR#: [id number] : 1960 Acct:[id number] Age/Sex: 64 / F ADM Date: 04/01/25 Loc: [facility] Attending Dr: Yovani Valdez D.O. Ordering Physician: Yovani Valdez D.O. Date of Service: 04/01/25 Procedure(s): ECG 12 lead Accession Number(s): [id number] cc: [facility] Test Date: 2025-04-01 Pat Name: DELMIS MTZ Department: Room: - Gender: Female Doweler: : 1960 Requested By: YOVANI VALDEZ Order Number: [id number] Reading MD: MAC ECHOLS M.D. Measurements Intervals [place] Rate: 55 P: 40 MD: 162 QRS: 30 QRSD: 89 T: 23 QT: 414 QTc: 398 Interpretive Statements SINUS BRADYCARDIA Borderline ECG Compared to ECG 01/04/2017 20:11:26 Heart rate has decreased Electronically Signed On 04-01-2025 18:34:40 EDT by MAC ECHOLS M.D. Dictated By: MAC ECHOLS Signed By: 04/01/251834 DD/ 0953 TD/TT: Enrollment Services Vice President:TBHRadiology, Radiologist, - 04/01/2025 [place] [address] Electrocardiograph Report Signed Patient: DELMIS MTZ MR#: [id number] : 1960 Acct:[id number] Age/Sex: 64 / F ADM Date: 04/01/25 Loc: [facility] Attending Dr: Yovani Valdez D.O. Ordering Physician: Yovani Valdez D.O. Date of Service: 04/01/25 Procedure(s): ECG 12 lead Accession Number(s): [id number] cc: [facility] Test Date: 2025-04-01 Pat Name: DELMIS MTZ Department: Room: - Gender: Female Doweler: : 1960 Requested By: YOVANI VALDEZ Order Number: [id number] Reading MD: MAC ECHOLS M.D. Measurements Intervals [place] Rate: 55 P: 40 MD: 162 QRS: 30 QRSD: 89 T: 23 QT: 414 QTc: 398 Interpretive Statements SINUS BRADYCARDIA Borderline ECG Compared to ECG 01/04/2017 20:11:26 Heart rate has decreased Electronically Signed On 04-01-2025 18:34:40 EDT by MAC ECHOLS M.D. Dictated By: MAC ECHOLS Signed By: 04/01/25 1835 DD/ 0953 TD/TT: Enrollment Services Vice President: LUCI HealthcareRadiology Study observation (narrative)[facility] HealthEC 12-LEAD Ordered By: Radiologist Radiology on 17-78-5055JSQU DragonRAD Work Phone: US PELVIC COMPLETE W/ TVon 54-23-9807WJ PELVIC COMPLETE W/ TVEXAM: US PELVIC COMPLETE [...] II, MD, PHD at 19-Mar-2025 08:43:41 AM [facility] [place] TeleradiologyNormalNot AvailableComment on above:Order Comment: US PELVIS-TRANSVAG IF INDICATED No LMP recorded.INSULINon 56-66-3502Tfflyho47.6 uIU/mLNormal2.6-24.9The [facility] Surgical HospitalComment on above:Performed By: #### INSULIN #### [facility] [address] [place] [address] Dr. Ghassan Hussein 25-[place] LABCORPon 36-39-5740Fxeusqj D, 25-Zrkxxza54.2 ng/mL Mbwzte21.0-100.0The [facility] Surgical HospitalComment on above:Result Comment: Vitamin D deficiency has been defined by the [place] of Medicine and an Endocrine Society practice guideline as a level of serum 25-OH vitamin D less than 20 ng/mL (1,2). The Endocrine Society went on to further define vitamin D insufficiency as a level between 21 and 29 ng/mL (2). 1. IOM ([place] of [employer]). 2010. Dietary reference intakes for calcium and D. [place]: The National Academies Press. 2. Nadia MF, [place], Mark ABAD, et al. Evaluation, treatment, and prevention of vitamin D deficiency: an Endocrine Society clinical practice guideline. JCEM. 2010; 96(5):1911-30.Performed By: #### IRON #### [facility] [address] [place] [address] Katherin KarenCBC AUTO DIFFon 21-33-0326JQZI #0.0 103/ulNormal0.0-0.1The [facility] Surgical HospitalComment on above:Performed By: #### IRON #### [facility] [address] [place] [address] Katherin KarenBasophils/100 WBC (Bld)0.7 %Normal0.2-2.0The [facility] Comment on above:Performed By: #### IRON #### [facility] [address] [place] [address] Katherin KarenEO #0.1 103/ulNormal0.0-0.7The [facility] Surgical HospitalComment on above: Performed By: #### IRON #### [facility] [address] [place] [address] Katherin KarenEosinophils/100 WBC (Bld)1.1 %Normal0.9-7.0The [facility] Comment on above:Performed By: #### IRON #### [facility] [address] [place], [place] [address] Katherin KarenErythrocyte distribution width (RBC) [Ratio]12.8 %Mqrzgj35.0-15.0The [facility] Surgical HospitalComment on above:Performed By: #### IRON #### [facility] [address] [place], [place] [address] Katherin KarenHematocrit (Bld) [Volume fraction]40.9 %Smvuvn00.0-48.0The [facility] Surgical HospitalComment on above:Performed By: #### IRON #### [facility] [address] [place] [address] Katherin KarenHemoglobin (Bld) [Mass/Vol]13.3 g/qUNyciyk46.0-16.0The [facility] Surgical HospitalComment on above:Performed By: #### IRON #### [facility] [address] [place] [address] Katherin KarenIG #0.01 10e3/ulNormal0.00-0.03The [facility] Surgical HospitalComment on above:Performed By: #### IRON #### [facility] [address] [place] [address] Katherin KarenIG %0.2 %Normal0.0-0.5The [facility] Surgical HospitalComment on above: Performed By: #### IRON #### [facility] [address] [place] [address] Katherin KarenLYMPH #1.0 103/ulCritically low1.2-3.8The [facility] Surgical HospitalComment on above:Performed By: #### IRON #### [facility] [address] [place] [address] Katherin KarenLymphocytes/100 WBC (Bld)18.7 %Critically low20.5-60.0The [facility] Surgical HospitalComment on above:Performed By: #### IRON #### [facility] [address] [place] [address] Katherin KarenMANUAL DIFF REQNONormalThe [facility] Surgical HospitalComment on above: Performed By: #### IRON #### [facility] Laboratory [address] [place] [address] Katherin KarenMCH (RBC) [Entitic mass]28.8 wnAwirih73.7-34.0[facility] Comment on above:Performed By: #### IRON #### [facility] Laboratory [address] [place] [address] Katherin KarenMCHC (RBC) [Mass/Vol]32.5 g/nLEvxeaw65.9-35.2[facility] Comment on above:Performed By: #### IRON #### [facility] Laboratory [address] [id number] Katherin KarenMCV (RBC) [Entitic vol]88.5 bIPrwgvy40.0-99.0[facility] Comment on above:Performed By: #### IRON #### [facility] Laboratory [address] [address] Katherin KarenMONO #0.4 103/ulNormal0.3-0.8The [facility] HospitalComment on above: Performed By: #### IRON #### [facility] Laboratory [address] [place] [address] Katherin KarenMonocytes/100 WBC (Bld)7.8 %Normal1.7-12.0[facility] Comment on above:Performed By: #### IRON #### [facility] Laboratory [address] [place] [address] Katherin KarenNEUT #3.9 103/ulNormal1.4-6.5The [facility] HospitalComment on above: Performed By: #### IRON #### [facility] Laboratory [address] [place] [address] Katherin KarenNeutrophils/100 WBC (Bld)71.5 %Wbaycr31.0-75.0[facility] Comment on above:Performed By: #### IRON #### [facility] Laboratory [address] [place] [address] Katherin KarenPlatelet mean volume (Bld) [Entitic vol]11.0 fLNormal9.5-13.5The [facility] HospitalComment on above:Performed By: #### IRON #### [facility] Laboratory [address] [place] [address] Katherin FrdujFJK694 103/cdHteidl480-140Apf [facility] HospitalComment on above: Performed By: #### IRON #### [facility] Laboratory [address] [place] [address] Katherin KarenRBC4.62 106/ulNormal4.20-5.40The [facility] HospitalComment on above: Performed By: #### IRON #### [facility] [address] [address] Katherin KarenWBC5.5 103/ulNormal4.0-11.0The [place] [facility] HospitalComment on above: Performed By: #### IRON #### [facility] [address] [address] Katherin KarenFREE THYROXINE INDEX T7on 17-01-8880MNR2.96Pxrgdp5.30-4.50The [place] [facility] HospitalComment on above:Performed By: #### LIPID, T7, TSH, CMP #### [facility] [address] [address] [address] Ghassan MenaT3U31.0 %Iyoxyq10.0-39.0The [place] [facility] HospitalComment on above: Performed By: #### LIPID, T7, TSH, CMP #### [facility] Laboratory [address] [place] [address] Dr. Ghassan MenaT4 [Mass/Vol]9.50 ug/dLNormal4.80-13.90[facility] Comment on above:Performed By: #### LIPID, T7, TSH, CMP #### [facility] Laboratory [address] [place] [address] Dr. Ghassan MenaGLYCOHEMOGLOBIN A1Con [id number] RECOMMENDATIONSEE BELOWNormal [facility] HospitalComaspirus [facility] on above:Result Comment: ADA RECOMMENDED LIMIT 4.0 - 6.0 ADA THERAPEUTIC TARGET < 7.0 ACTION SUGGESTED > 7.0Performed By: #### A1C #### [facility] Laboratory [address] [place] [address] Dr. Ghassan MenaGlucose [Mass/Vol]131 mg/dLNormalThe [facility] HospitalComment on above:Performed By: #### A1C #### [facility] [address] [place] [address] Dr. Ghassan MenaHbA1c (Bld) [Mass fraction]6.2 %Normal4.5-6.2The [place] [facility] HospitalComment on above:Performed By: #### A1C #### [facility] [address] [address] [address] Ghassan Lay [id number] [Mass/Vol]54.0 ug/vZOcomwa60.0-170.0[facility] Hospitalment on above:Performed By: #### IRON #### [facility] [address] [address] [address] Ghassan HidalgoID PROFILEon [id number]-HDL RATIO NORMSEE BELOWOhioHealth Berger HospitalComment on above:Result Comment: 3.3 - 4.4 LOW RISK 4.4 - 7.1 AVERAGE RISK 7.1 - 11.0 MODERATE RISK >11.0 HIGH RISKPerformed By: #### LIPID, T7, TSH, CMP #### [facility] [address] [place] [address] Dr. Ghassan Monahanesterol [Mass/Vol]143 mg/dLNormal<=200[facility] Comment on above:Performed By: #### LIPID, T7, TSH, CMP #### [facility] [address] [place] [address] Dr. Ghassan Monahanesterol in HDL [Mass/Vol]50 mg/mKHxzbey63-92Lzt [facility] HospitalComaspirus [facility] on above:Performed By: #### LIPID, T7, TSH, CMP #### [facility] [address] [address] [address] Ghassan Monahanesterol in LDL [Mass/Vol]76.8 mg/dLOhioHealth Berger HospitalComaspirus ontonagon hospital on above:Performed By: #### LIPID, T7, TSH, CMP #### [facility] [address] [place] [address] Dr. Ghassan Do.total/Cholesterol in HDL [Mass ratio]2.9 {ratio} NormalBrown Memorial HospitalComaspirus ontonagon hospital on above:Performed By: #### LIPID, T7, TSH, CMP #### [facility] [address] [place] [address] Dr. Ghassan Chambers NORMAL> or = 60 mg/dl - LOW CARDIOVASCULAR RISK <40 mg/dl - HIGH CARDIOVASCULAR RISKNoDelaware County HospitalComment on above:Performed By: #### LIPID, T7, TSH, CMP #### [facility] [address] [address] [address] Ghassan Trujillo CALC NORMALSEE BELOWOhioHealth Berger HospitalComment on above:Result Comment: <100 mg/dl OPTIMAL 100 - 129 mg/dl NEAR OR ABOVE OPTIMAL 130 - 159 mg/dl BORDERLINE HIGH 160 - 189 mg/dl HIGH >190 mg/dl VERY HIGH Performed By: #### LIPID, T7, TSH, CMP #### [facility] [address] [address] [address] Ghassan MenaTriglyceride [Mass/Vol]81 mg/dLNormal<=150[facility] Comment on above:Performed By: #### LIPID, T7, TSH, CMP #### [facility] [address] [address] [address] Ghassan MenaVLDL CALC16.2 mg/dLNoDelaware County HospitalComment on above: Performed By: #### LIPID, T7, TSH, CMP #### [facility] [address] [address] [address] Ghassan MenaPROF 14(COMP METB)on [id number] [Mass/Vol]3.5 g/dLNormal 3.4-5.0The [facility] on above:Performed By: #### LIPID, T7, TSH, CMP #### [facility] [address] [address] [address] Ghassan MenaAlbumin/Globulin [Mass ratio]0.9 {ratio}NormalThe [facility] on above:Performed By: #### LIPID, T7, TSH, CMP #### [facility] [address] [address] [address] Ghassan Cruz [Catalytic activity/Vol]83 U/YAuweqt25-175Tfq [facility] on above:Performed By: #### LIPID, T7, TSH, CMP #### [facility] [address] [address] [address] Ghassan Reyes [Catalytic activity/Vol]14 U/OFqsgfh20-18Cvq [facility]ighment on above:Performed By: #### LIPID, T7, TSH, CMP #### [facility] [address] [address] [address] Ghassan Alonzoon gap [Moles/Vol]11.3 mmol/LNormalBrown [facility] Hospital Comment on above:Performed By: #### LIPID, T7, TSH, CMP #### [facility] [address] [address] [address] Ghassan MenaAST [Catalytic activity/Vol]11 U/LCritically tlb63-50Igl [facility] HospitalComment on above:Performed By: #### LIPID, T7, TSH, CMP #### [facility] [address] [place] [address] Dr. Ghassan MenaBilirubin [Mass/Vol]0.5 mg/dLNormal0.2-1.0[facility] Comment on above:Performed By: #### LIPID, T7, TSH, CMP #### [facility] [address] [place] [address] Dr. Ghassan MenaCalcium [Mass/Vol]8.9 mg/dLNormal8.5-10.1[facility] Comment on above:Performed By: #### LIPID, T7, TSH, CMP #### [facility] [address] [place] [address] Dr. Ghassan MenaChloride [Moles/Vol]105 mmol/MSsphei46-738KkbBrown Memorial Hospital Comment on above:Performed By: #### LIPID, T7, TSH, CMP #### [facility] [address] [place] [address] Dr. Ghassan MenaCO2 [Moles/Vol]27.8 mmol/JCggpeu57.0-32.0[facility] Comment on above:Performed By: #### LIPID, T7, TSH, CMP #### [facility] [address] [place] [address] Dr. Ghassan MenaCreatinine [Mass/Vol]0.70 mg/dLNormal0.55-1.02The [facility] HospitalComment on above:Performed By: #### LIPID, T7, TSH, CMP #### [facility] [address] [address] [address] Ghassan BowensGFR-AF KUWAITI>60Normal>=60The [facility] Glen[facility]ighment on above:Performed By: #### LIPID, T7, TSH, CMP #### [facility] [address] [address] [address] Ghassan BowensGFR-NON AF KUWAITI>60Normal>=60The [facility] HospitalComment on above:Performed By: #### LIPID, T7, TSH, CMP #### [facility] [address] [address] [address] Ghassan MenaGlobulin (S) [Mass/Vol]3.8 g/dLNormalThe [facility] HospitalComment on above:Performed By: #### LIPID, T7, TSH, CMP #### [facility] [address] [place] [address] Dr. Ghassan MenaGlucose [Mass/Vol]109 mg/dLCritically ibya80-658Svh [facility] HospitalComment on above:Performed By: #### LIPID, T7, TSH, CMP #### [facility] [address] [address] [address] Ghassan MenaPotassium [Moles/Vol]4.1 mmol/LNormal3.5-5.1[facility] Comment on above:Performed By: #### LIPID, T7, TSH, CMP #### [facility] [address] [address] [address] Ghassan MenaProtein [Mass/Vol]7.3 g/dLNormal6.4-8.2[facility] Comment on above:Performed By: #### LIPID, T7, TSH, CMP #### [facility] [address] [address] [address] Ghassan MenaSodium [Moles/Vol]140 mmol/GGjqomh997-605Yps [facility] Comment on above:Performed By: #### LIPID, T7, TSH, CMP #### [facility] [address] [address] [address] Ghassan MenaUrea nitrogen [Mass/Vol]16.0 mg/dLNormal7.0-18.0The [place] [facility] HospitalComment on above:Performed By: #### LIPID, T7, TSH, CMP #### [facility] [address] [place] [address] Dr. Ghassan MenaUrea nitrogen/Creatinine [Mass ratio]22.9 mg/mgNormalThe [facility] HospitalComment on above:Performed By: #### LIPID, T7, TSH, CMP #### [facility] [address] [place] [address] Dr. Ghassan HumphreyHodeborah 27-32-8068XIS9.630 uIU/mLNormal0.358-3.740[facility] HospitalComment on above:Performed By: #### LIPID, T7, TSH, CMP #### [facility] [address] [place] [address] Dr. Ghassan MenaINSULINon 33-79-2346Cgnzvrz0.9 uIU/mLNormal2.6-24.9The [place] [facility] HospitalComment on above:Performed By: #### INSULIN #### [facility] [address] [place] [address] Katherin KarenCBC AUTO DIFFon 77-30-1427JBEA #0.1 103/ulNormal0.0-0.1[facility] HospitalComment on above:Performed By: #### IRON #### [facility] [address] [place] [address] Katherin KarenBasophils/100 WBC (Bld)1.0 %Normal0.2-2.0[facility] Comment on above:Performed By: #### IRON #### [facility] [address] [place] [address] Katherin KarenEO #0.1 103/ulNormal0.0-0.7The [facility] HospitalComaspirus ontonagon hospital on above: Performed By: #### IRON #### [facility] [address] [place] [address] Katherin KarenEosinophils/100 WBC (Bld)1.2 %Normal0.9-7.0[facility] Comment on above:Performed By: #### IRON #### [facility] [address] [place] [address] Katherin KarenErythrocyte distribution width (RBC) [Ratio]13.1 %Rizimi33.0-15.0The [facility] Glen[facility]ighment on above:Performed By: #### IRON #### [facility] [address] [place] [address] Katherin KarenHematocrit (Bld) [Volume fraction]40.6 %Hoowbj69.0-48.0The [facility] HospitalComment on above:Performed By: #### IRON #### [facility] [address] [place] [address] Katherin KarenHemoglobin (Bld) [Mass/Vol]13.1 g/nOOsorhr24.0-16.0The [place] [facility] HospitalComment on above:Performed By: #### IRON #### [facility] [address] [place] [address] Katherin KarenIG #0.01 10e3/ulNormal0.00-0.03The [place] [facility] HospitalComment on above:Performed By: #### IRON #### [facility] [address] [place] [address] Katherin KarenIG %0.2 %Normal0.0-0.5The [place] [facility] HospitalComment on above: Performed By: #### IRON #### [facility] [address] [place] [address] Katherin KarenLYMPH #1.2 103/ulNormal1.2-3.8The [place] [facility] HospitalComment on above: Performed By: #### IRON #### [facility] [address] [place] [address] Katherin KarenLymphocytes/100 WBC (Bld)22.1 %Usefao90.5-60.0[facility] Comment on above:Performed By: #### IRON #### [facility] [address] [place] [address] Katherin KarenMANUAL DIFF REQNONormalThe [facility] HospitalComment on above: Performed By: #### IRON #### [facility] [address] [address] Katherin ArroyoMCH (RBC) [Entitic mass]29.1 quHfilyi15.7-34.0[facility] Comment on above:Performed By: #### IRON #### [facility] [address] [place] [address] Katherin ArroyoMCHC (RBC) [Mass/Vol]32.3 g/fVThqtrz34.9-35.2[facility] Comment on above:Performed By: #### IRON #### [facility] [address] [place] [address] Katherin ArroyoMCV (RBC) [Entitic vol]90.2 zKFkjoln56.0-99.0[facility] Comment on above:Performed By: #### IRON #### [facility] Laboratory [address] [place] [address] Katherin KarenMONO #0.5 103/ulNormal0.3-0.8ThMemorial Health System Marietta Memorial HospitalComment on above: Performed By: #### IRON #### [facility] [address] [place] [address] Katherin KarenMonocytes/100 WBC (Bld)9.0 %Normal1.7-12.0[facility] Comment on above:Performed By: #### IRON #### [facility] [address] [place] [address] Katherin KarenNEUT #3.5 103/ulNormal1.4-6.5The [place] [facility] HospitalComment on above: Performed By: #### IRON #### [facility] [address] [place] [address] Katheirn KarenNeutrophils/100 WBC (Bld)66.5 %Kmydfd61.0-75.0[facility] Comment on above:Performed By: #### IRON #### [facility] [address] [place] [address] Katherin KarenPlatelet mean volume (Bld) [Entitic vol]11.0 fLNormal9.5-13.5The [place] [facility] HospitalComment on above:Performed By: #### IRON #### [facility] [address] [address] Katherin DvzmiCCK144 103/rbWzwqjm606-403Glg [facility] HospitalComment on above: Performed By: #### IRON #### [facility] [address] [address] Katherin KarenRBC4.50 106/ulNormal4.20-5.40The [place] [facility] HospitalComment on above: Performed By: #### IRON #### [facility] [address] [place] [address] Katherin KarenWBC5.2 103/ulNormal4.0-11.0The [place] [facility] HospitalComaspirus onton[facility] on above: Performed By: #### IRON #### [facility] [address] [place] [address] Katherin KarenFREE THYROXINE INDEX T7on 07-54-1469EIK7.77NoDelaware County HospitalComment on above:Performed By: #### IRON #### [facility] [address] [place] [address] Katherin WmvhvS2Q09.0 %Hliuuw20.5-40.5The [place] [facility] HospitalComaspirus [facility]ton[facility] on above: Performed By: #### IRON #### [facility] [address] [place] [address] Katherin KarenT4 [Mass/Vol]11.10 ug/dLCritically high5.53-11.00[facility] HospitalComaspirus [facility] hospital on above:Performed By: #### IRON #### [facility] [address] [place] [address] Katherin KarenGLYCOHEMOGLOBIN A1Con 91-96-6025AXC RECOMMENDATIONADA THERAPEUTIC TARGET 6.0 - 7.0 ACTION SUGGESTED > 7.0NoDelaware County HospitalComaspirus ontonagon hospital on above:Performed By: #### A1C #### [facility] [address] [place] [address] Katherin KarenGlucose [Mass/Vol]123 mg/dLNoDelaware County HospitalComaspirus ontonagon hospital on above:Performed By: #### A1C #### [facility] [address] [place], [place] [id number] Katherin EriigRnY0z (Bld) [Mass fraction]5.9 %Normal<=6.0[facility] Comment on above:Performed By: #### A1C #### [facility] [address] [place] [address] Katherin KarenIRONon 14-51-2898Wqlp [Mass/Vol]64.0 ug/yWTmovgu51.0-170.0[facility] HospitalComment on above:Performed By: #### IRON #### [facility] [address] [place] [address] Katherin KarenLIPID PROFILEon [id number]-HDL RATIO NORMSEE BELOWOhioHealth Berger HospitalComment on above:Result Comment: 3.3 - 4.4 LOW RISK 4.4 - 7.1 AVERAGE RISK 7.1 - 11.0 MODERATE RISK >11.0 HIGH RISKPerformed By: #### IRON #### [facility] [address] [place] [address] Katherin KarenCholesterol [Mass/Vol]137 mg/dLNormal<=200[facility] Comment on above:Performed By: #### IRON #### [facility] [address] [place] [address] Katherin KarenCholesterol in HDL [Mass/Vol]52 mg/dLOhioHealth Berger Hospital Comment on above:Performed By: #### IRON #### [facility] [address] [place] [address] Katherin KarenCholesterol in LDL [Mass/Vol]72.2 mg/dLOhioHealth Berger Hospital Comment on above:Performed By: #### IRON #### [facility] [address] [place] [address] Katherin KarenCholesterol.total/Cholesterol in HDL [Mass ratio]2.6 {ratio}Normal The [place] [facility] HospitalComment on above:Performed By: #### IRON #### [facility] [address] [place] [address] Katherin KarenHDL NORMAL> or = 60 mg/dl - LOW CARDIOVASCULAR RISK <40 mg/dl - HIGH CARDIOVASCULAR RISKOhioHealth Berger HospitalComment on above:Performed By: #### IRON #### [facility] [address] [address] Katherin KarenLDL CALC NORMALSEE BELOWOhioHealth Berger HospitalComment on above: Result Comment: <100 mg/dl OPTIMAL 100 - 129 mg/dl NEAR OR ABOVE OPTIMAL 130 - 159 mg/dl BORDERLINE HIGH 160 - 189 mg/dl HIGH >190 mg/dl VERY HIGHPerformed By: #### IRON #### [facility] [address] [place] [address] Katherin KarenTriglyceride [Mass/Vol]64 mg/dLNormal<=150[facility] Comment on above:Performed By: #### IRON #### [facility] [address] [place] [address] Katherin KarenVLDL CALC12.8 mg/dLNoDelaware County HospitalComment on above: Performed By: #### IRON #### [facility] [address] [place] [address] Katherin KarenPROF 14(COMP METB)on [id number] [Mass/Vol]3.7 g/dLNormal 3.5-5.0[facility] HospitalComment on above:Performed By: #### IRON #### [facility] [address] [place] [address] Katherin KarenAlbumin/Globulin [Mass ratio]0.9 {ratio}NormalBrown Memorial Hospital Comment on above:Performed By: #### IRON #### [facility] [address] [place] [address] Katherin KarenALP [Catalytic activity/Vol]85 U/CLdkxim06-309YpzBrown Memorial Hospital Comment on above:Performed By: #### IRON #### [facility] [address] [place] [address] Katherin KarenALT [Catalytic activity/Vol]19 U/LNormal9-52[facility] Comment on above:Performed By: #### IRON #### [facility] [address] [place] [address] Katherin KarenAnion gap [Moles/Vol]10.6 mmol/LNormalThe [place] [facility] HospitalComment on above:Performed By: #### IRON #### [facility] [address] [address] Katherin KarenAST [Catalytic activity/Vol]24 U/GKjcovp20-55YzxBrown Memorial Hospital Comment on above:Performed By: #### IRON #### [facility] [address] [address] Katherin KarenBilirubin [Mass/Vol]0.5 mg/dLNormal0.2-1.3TProMedica Memorial Hospital Comment on above:Performed By: #### IRON #### [facility] [address] [place] [address] Katherin KarenCalcium [Mass/Vol]9.2 mg/dLNormal8.4-10.2[facility] Comment on above:Performed By: #### IRON #### [facility] [address] [place] [address] Katherin KarenChloride [Moles/Vol]102 mmol/ASobxah52-259NmzBrown Memorial Hospital Comment on above:Performed By: #### IRON #### [facility] [address] [place] [address] Katherin KarenCO2 [Moles/Vol]31.5 mmol/LCritically high22.0-30.0[facility] HospitalComment on above:Performed By: #### IRON #### [facility] [address] [place] [address] Katherin KarenCreatinine [Mass/Vol]0.85 mg/dLNormal0.52-1.04[facility] Comment on above:Performed By: #### IRON #### [facility] [address] [address] Katherin KarenEGFR-AF KUWAITI>60Normal>=60The [facility] HospitalComment on above: Performed By: #### IRON #### [facility] [address] [place] [address] Katherin KarenEGFR-NON AF KUWAITI>60Normal>=60The [place] [facility] HospitalComment on above:Performed By: #### IRON #### [facility] [address] [address] Katherin KarenGlobulin (S) [Mass/Vol]4.0 g/dLNormMercy Health Willard HospitalComment on above:Performed By: #### IRON #### [facility] [address] [address] Katherin KarenGlucose [Mass/Vol]99 mg/oPKthcie30-516Lto [facility] HospitalComment on above:Performed By: #### IRON #### [facility] [address] [place] [address] Katherin KarenPotassium [Moles/Vol]4.1 mmol/LNormal3.4-5.0The [facility] Comment on above:Performed By: #### IRON #### [facility] [address] [place] [address] Katherin KarenProtein [Mass/Vol]7.7 g/dLNormal6.1-8.2The [place] [facility] HospitalComment on above:Performed By: #### IRON #### [facility] [address] [place] [address] Katherin KarenSodium [Moles/Vol]140 mmol/SXtlzjt641-918Bef [facility] Comment on above:Performed By: #### IRON #### [facility] [address] [place] [address] Katherin KarenUrea nitrogen [Mass/Vol]15.0 mg/dLNormal7.0-17.0The [place] [facility] HospitalComment on above:Performed By: #### IRON #### [facility] [address] [place] [address] Katherin KarenUrea nitrogen/Creatinine [Mass ratio]17.6 mg/mgNormMercy Health Willard HospitalComment on above:Performed By: #### IRON #### [facility] [address] [place] [address] Katherin KarenTSHon 04-26-6941WDZ3.729 uIU/mLNormal0.470-4.680The [place] [facility] HospitalComment on above:Performed By: #### IRON #### [facility] [address] [place], [place] [address] Katherin Ivey [facility] HospitalComment on above:Result Comment: <0.34 UIU/ml HYPERTHYROID 0.34-5.60 UIU/ml EUTHYROID >5.60 UIU/ml HYPOTHYROIDPerformed By: #### IRON #### [facility] [address] [place], [place] [address] [address]o Vital Signs Date TimeVital SignValuePerforming PtejubmxhPrtxmkcv79-53-5031 13:24-0400Body zzfsve714.3 cmNicvicky Brown DPM Work Phone: [facility] HealthQvxtzgstis43-63-4293 13:24-0400Body mass index (BMI) [Ratio]39.89 kg/y0Ivtfargb Brown DPM Work Phone: [facility] HealthPaiokofwbo94-78-8761 13:24-0400Body .73 kgLiborio Miranda DPM Work Phone: [facility] HealthHhglxnnmbe69-35-9229 13:24-0400Respiratory rate16 /minLiborio Brown DPM Work Phone: [facility] HealthWkxuhjmxya13-87-0905 08:51-0400Body lmfecd643.6 cmCourdejon Rodriguez PA Work Phone: [facility]08-18-2025 08:51-0400Body mass index (BMI) [Ratio]38.9 kg/t0IssmqqxeLindsay Rodriguez PA Work Phone: [facility]08-18-2025 08:51-0400Body psratrxukki76.7 [degF]Lindsay BURNHAM Work Phone: [facility]08-18-2025 08:51-0400Body cnoyaw982.28 kgCocony Rodriguez PA Work Phone: [facility]08-18-2025 08:51-0400Diastolic blood fitxskmx07 mm[Hg]Lindsay BURNHAM Work Phone: [facility] mycujoo Snblbn09-55-3603 08:51-0400Heart rate 54 /minCourtporsha Rodriguez PA Work Phone: [facility] mycujoo Sjkhah75-97-7612 08:51-0400 Respiratory rate16 /minCocony Rodriguez PA Work Phone: [facility]08-18-2025 08:51-3919WjM4% (BldA) [Mass fraction]100 %Lindsay Rodriguez PA Work Phone: [facility] mycujoo Zgtaub44-94-3000 08:51-0400Systolic blood rpkwvdfu532 mm[Hg]Lindsay Rodriguez PA Work Phone: [facility]07-28-2025 14:46-0400Body .3 cmMarc Dolce DPM FACFAS Work Phone: [facility] HealthAzltqiopav81-62-9928 14:46-0400Body mass index (BMI) [Ratio]39.89 kg/m2Marc Dolce DPM FACFAS Work Phone: [facility] HealthPfnlgtdtym92-90-9653 14:46-0400Body .73 kgMarc Dolce DPM FACFAS Work Phone: [facility] HealthOadjtiwvzg77-50-7450 14:46-0400Respiratory rate18 /minMarc Dolce DPM FACFAS Work Phone: [facility] HealthPecohztffl46-38-4327 15:00-0400Diastolic blood amwkhenu17 mm[Hg]Julian Camarena MD Work Phone: met740-1497UznfhShdwwp32-770584IjkjaEdixwc08-32-7297 15:00-0400Heart rate61 /min Julian Camarena MD Work Phone: [phone]gDwjygv67-15-3133 15:00-0400Respiratory rate23 /minJulian Camarena MD Work Phone: met343-2070XwykuPpgdbn35-486700HwfcoZbojtt86-71-4153 15:00-6427BlP8% (BldA) [Mass fraction]97 %Julian Camarena MD Work Phone: metro105-1355BcfqgAtchln97-175670ZngaxPvgnqx59-01-1408 15:00-0400Systolic blood dtmaehpy428 mm[Hg]Julian Camarena MD Work Phone: [phone]5593MdvarModkpp09-90-1032 13:00-0400Body fsyohxadost08.1 [degF]Julian Camarena MD Work Phone: [phone]jEljiru98-30-9082 09:02-0400Heart rate66 /min Julian Camarena MD Work Phone: [phone]eFstpop64-74-6762 00:06-0400Body mass index (BMI) [Ratio]41.42 kg/e6Yzbjiykalpesh Camarena MD Work Phone: [phone]kDyyftj14-34-5714 00:06-0400Body .7 kg Julian Camarena MD Work Phone: [phone]sbnXgvvuk25-34-1827 21:53-0400Body drlgov479.3 cm Julian Camarena MD Work Phone: [phone]491UwbnsRjayyt84-45-4674 11:28-0400Diastolic blood smevrqqa13 mm[Hg]Lindsay Rodriguez PA Work Phone: [facility] HospitalPlaceBlogger Xylrej63-01-5175 11:28-0400Systolic blood jlehzjhz51 mm[Hg]Lindsay Rodriguez PA Work Phone: [facility] HospitalPlaceBlogger Fmgtot43-11-2121 11:24-0400Body pmmoqf556.6 cmCourdejon Rodriguez PA Work Phone: [facility] HospitalPlaceBlogger Yxfzvg37-83-8828 11:24-0400Body mass index (BMI) [Ratio]40.52 kg/n0Hgaaiafdcony Rodriguez PA Work Phone: [facility] HospitalBridge [employer]07-15-2025 11:24-0400Body zufzwvfeiwc35.9 [degF]Lindsay Rodriguez PA Work Phone: [facility] HospitalPlaceBlogger Xrgckl38-49-2372 11:24-0400Body .63 kgCocony Rodriguez PA Work Phone: [facility] HospitalPlaceBlogger Qzomtn39-67-7790 11:24-0400Heart rate 72 /minCocony Morrisne PA Work Phone: [facility]07-15-2025 11:24-0400 Respiratory rate16 /minCocony Morrisne PA Work Phone: [facility]07-15-2025 11:24-0171HfW7% (BldA) [Mass fraction]99 %Lindsay Morrisne PA Work Phone: [facility]06-26-2025 14:05-0400Body kbpytg468.[address]06-26-2025 14:05-0400Body mass index (BMI) [Ratio]39.42 kg/z4Mcjvl[address]06-26-2025 14:05-0400Body wdryegokznv83.5 [degF][address]06-26-2025 14:05-0400Body tqmxgo113 kg[address]06-26-2025 14:05-0400Diastolic blood wrfmwcsu18 mm[Hg][address]06-26-2025 14:05-0400Heart rate63 /min[address]06-26-2025 14:05-0400Respiratory rate18 /min [address]06-26-2025 14:05-7299XpL1% (BldA) [Mass fraction] 97 %[address]06-26-2025 14:05-0400Systolic blood pressure 127 mm[Hg][address]06-09-2025 13:23-0400Body mass index (BMI) [Ratio]37.6 kg/m2Bisi BURNHAM Work Phone: [facility] HealthKvzxfdlbyi25-43-3961 13:23-0400Body qcjbad945.28 kgBisi BURNHAM Work Phone: [facility] HealthKcjzcagvif67-28-5441 13:23-0400Diastolic blood rgakrjoz40 mm[Hg]Bisi BURNHAM Work Phone: [facility] HealthNxfchxwhfs24-59-4952 13:23-0400Systolic blood mm[Hg]Bisi BURNHAM Work Phone: [facility] HealthXcbqbvvguk64-90-8499 15:39-0400Body mass index (BMI) [Ratio]38.33 kg/x2Ifwzr José Miguel DO Work Phone: [facility] HealthIurzxccubd12-58-3831 15:39-0400Body aktlzb472.77 kgCorey José Miguel DO Work Phone: [phone] HealthXxkvvqowbc79-65-2751 15:39-0400Diastolic blood ywiesfsv33 mm[Hg]Yovani José Miguel DO Work Phone: [facility] HealthMmtljbltxk60-53-2878 15:39-0400Systolic blood zemixelc528 mm[Hg]Yovani José Miguel DO Work Phone: [facility] HealthTtzhixbiav68-79-9600 10:09-0400Body mass index (BMI) [Ratio]37.84 kg/j7Dwady José Miguel DO Work Phone: [phone] [place], [place] [address]Bxhjcmwswn51-23-6005 10:09-0400Body ezylju739.09 kgCorey José Miguel DO Work Phone: [facility] HealthXnrysxzhyi90-43-4598 10:09-0400Diastolic blood bpaifxwp99 mm[Hg]Yovani José Miguel DO Work Phone: [facility] HealthHtekeydgjc93-59-0833 10:09-0400Systolic blood yhfhbgfe837 mm[Hg]Yovani José Miguel DO Work Phone: [facility] Healthcare Encounters Encounter DateEncounter TypeCare ProviderFacilityStart: 09-17-2025 End: 39-70-2732udfrmgtarjEsabsmr R NILLFacility: [place]vueStart: 09-17-2025 End: 79-15-2258Wgengbo encounter procedureMichael R NILL [phone]-[facility]ajvnA[facility] [place] Start: 09-04-2025 End: 17-12-1865Llmszz flowsMichaelle Miranda DPM Work Phone: noms CI PODIATRYStart: 09-04-2025 End: 93-56-4153Ibbgxh flowsMichaelle Miranda DPM Work Phone: [facility] CI PODIATRYStart: 09-04-2025 End: 69-41-9800Zgrvfp outpatient visit 10 minutesLiborio Miranda DPM Work Phone: noms CI PODIATRYComment on above:Other specified disorders of synovium, left ankle and foot (Primary Dx); Pain due to onychomycosis of toenails of both feetStart: 09-04-2025 End: 17-82-2389qxvciourbqBIFTMEON A BROWNNot AvailableStart: 08-28-2025 ambulatoryMichael NILLFacility: BellevueStart: 06-30-2025 End: 18-38-5571Izhnrg follow up visit related to original Radha BURNHAM Work Phone: [facility]otCorewell [facility] - Medical OncologyComment on above:Encounter for postoperative care (Primary Dx)Start: 06-30-2025 End: 96-57-2297rzhulncctxMXPFMMHB PAYNEProMedica Moffett HospitalStart: 06-09-2025 End: 71-10-8026Cmvinv outpatient visit 15 minutesMarc D Dolce DPM FACFAS Work Phone: noms [facility] PODComment on above:Abscess, toe, left (Primary Dx); OnychocryptosisStart: 06-09-2025 End: 09-90-4951xwnozxugmmGPRZ D DOLCENot AvailableStart: 06-09-2025 End: 36-73-1731Kklpqu flowsheetMarc D Dolce DPM FACFAS Work Phone: noms [facility] SouthwnStart: 06-09-2025 End: 66-72-3846Dvgiso flowsheetMarc D Dolce DPM FACFAS Work Phone: [facility] Centertart: 06-03-2025 End: 75-32-9029Bzkjfukkb encounterNatalie A Felter RACING SECRETARY-NEEDLE PROCESS [employer] SUPERVISOR Work Phone: noms [facility] DERMStart: 05-30-2025 End: 75-36-5694Yrnhlu-up encounterTony Dupont MD Work Phone: [facility] Emergency MedicineComment on above: SPECIMEN FOR DERM PATHOLOGYStart: 05-29-2025 End: 37-87-6588Qbiuzkpws encounterPatrica Engel MD Work Phone: [facility] Internal MedicineComment on above:Prescription ClarificationStart: 05-28-2025 End: 27-72-3132Vaedmycers and management of inpatientVIDYLauren ARIE Facility:METROHealthStart: 21-68-4373Kfycxdpjz department patient visitUNKNOW PROVIDERFacility:METROHealthStart: 05-28-2025 End: 70-40-3161Ffxmrfnwax and management of inpatientThomas Lake Camarena MD Work Phone: [phone] AComment on above:Rash and nonspecific skin eruption (Primary Dx); Adverse effect of drug, initial encounter; Abnormal electrocardiogram (ECG) (EKG); Abnormal electrocardiogram (ECG) (EKG); BRIAN (obstructive sleep apnea)Start: 05-28-2025 End: 07-42-1307Drbdig outpatient new 30 minutesNatalie A Felter RACING SECRETARY-NEEDLE PROCESS [employer] SUPERVISOR Work Phone: noms [facility] DERMComment on above:Rash and other nonspecific skin eruption (Primary Dx)Start: 05-28-2025 End: 42-31-2119syoropbrjeYPAAAEY A FELTERNot AvailableStart: 05-27-2025 End: 99-79-9178Fprtby outpatient visit 25 minutesLindsay BURNHAM Work Phone: Zakia Gomez Amador [facility] - Medical OncologyComment on above:Endometrial cancer ([facility]-HCC) (Primary Dx); Encounter for postoperative careStart: 05-27-2025 End: 06-26-5666txibeqxhttDafbsvJonn Gross PA-C Work Phone: [facility], A Department of [facility] HospitalStart: 05-26-2025 End: 33-60-4689Insbiepzr encounterMaharman Victor CMACleveland [facility] Gynecology Oncology, A Department of [facility] HospitalStart: 86-79-1697kpdcxdlaqj [facility] Ambulatory PPGStart: 05-19-2025 End: 35-61-2976Gcowst flowsheetMarc D Dolce DPM FACFAS Work Phone: noms ASC PODStart: 05-19-2025 End: 88-21-8885Fuykxy flowsheetMarc D Dolce DPM FACFAS Work Phone: noms ASC PODStart: 05-19-2025 End: 28-42-5759ziqblmegdeFIOX D DOLCENot AvailableStart: 05-19-2025 End: 49-43-6960Zxvpud outpatient visit 25 minutesMarc D Dolce DPM FACFAS Work Phone: noms NMA PODComment on above:Onychocryptosis (Primary Dx); Abscess, toe, left; Pain in left toe(s)Start: 05-14-2025 End: 60-88-2477Eirziebdg encounterClary [facility] Gynecology Oncology, A Department of [facility] HospitalStart: 05-12-2025 End: 71-30-0770Rfboxrisge and management of inpatientADAM C WALTERProMedica Cambridge HospitalStart: 05-08-2025 End: 57-98-7388cvwvklkqqnDKNM C [facility] HOSPITALTERProMedica Cambridge HospitalStart: 05-08-2025 Encounter for other preprocedural examinationADAM [facility] HospitalStart: 05-08-2025 End: 84-84-8571Ipcmbml encounter procedureMetro Pat Provider 9[facility] On [facility] HospitalwayComment on above:Pre-op testing (Primary Dx); Endometrial cancer ([facility]-HCC); Preop testingStart: 05-08-2025 End: 85-75-8441Ipmaall encounter statusMetro [address] [place], [place] [address]tart: 05-07-2025 End: 04-75-7910Uaqquwhzd encounterMichele Ricardo Louisero [facility] On [facility] Walestart: 05-01-2025 End: 39-64-6639Pwytpd OnlyMalachi Snow MD Work Phone: [facility] Gynecology Oncology, A Department of [facility] HospitalComaspirus ontonagon hospital on above:Endometrial cancer (CMS-HCC) (Primary Dx); Preop testingStart: 05-01-2025 End: 77-42-5003Dqyecyf encounter statusAdaterry Snow MD Work Phone: [facility] Hospitaltart: 72-86-7736Rwydwvmjk for preprocedural laboratory examinationADATerry Garsia [facility] Centertart: 04-30-2025 End: 83-49-0081Kqeqnv outpatient new 60 minutesAdam Ady Snow MD Work Phone: [facility] Gynecology Oncology, A Department of [facility] HospitalComaspirus ontonagon hospital on above:Endometrial cancer (CMS-HCC) (Primary Dx); Pre-procedure lab examStart: 04-30-2025 End: 05-46-3830btcqnhwzmoVTZM C [facility] HOSPITALHEMALATHAUniversity Hospitals Cleveland Medical Centertart: 04-30-2025 End: 96-04-5831Jupasqb encounter statusMalachi Snow MD Work Phone: [facility] Hospitaltart: 04-21-2025 End: 94-89-6953Zqvxjm Sara BURNHAM Work Phone: NOZZ BCP OBStart: 04-21-2025 End: 09-27-3228Idqjwc Sara BURNHAM Work Phone: [facility] BCP OBStart: 04-21-2025 End: 58-32-7601Duultr follow up visit related to original Faviola BURNHAM Work Phone: noms BCP OBComment on above:Postoperative examination Start: 04-21-2025 End: 24-36-2360pbndxsunseEHK RAMEYNot AvailableStart: 04-11-2025 End: 78-15-7856Kzcwlpbac Result EncounterCorey José Miguel DO Work Phone: [facility] External Department UnsolicitedStart: 04-11-2025 End: 24-98-4174Dipxdvghg Result EncounterCorey José Miguel DO Work Phone: [facility] External Department UnsolicitedStart: 04-01-2025 End: 94-31-3825Orievlqcm Result EncounterCorey José Miguel DO Work Phone: NO[facility] External Department UnsolicitedStart: 04-01-2025 End: 30-75-9052Bafmcfavv Result EncounterCorey José Miguel DO Work Phone: [facility] External Department UnsolicitedStart: 03-18-2025 End: 08-91-6365judmdoxpbqUTWIH FAZIONot AvailableStart: 03-18-2025 End: 26-94-6753Vjfdys outpatient visit 15 minutesCorey José Miguel DO Work Phone: [facility] BCP OBComment on above:Pre-op examination; Postmenopausal bleeding; Thickened endometriumStart: 03-18-2025 End: 83-71-1581Metxujofenrrg examination doneCorey José Miguel DO Work Phone: [facility] HealthcareStart: 03-18-2025 End: 48-18-8879gytvkzvzrhNNUL DOLCENot AvailableStart: 02-27-2025 End: 06-08-3174Ytfgcv flowsheetCorey José Miguel DO Work Phone: [facility] BCP OBStart: 02-27-2025 End: 35-50-1977Cavnbb flowsheetCorey José Miguel DO Work Phone: [facility] BCP OBStart: 02-27-2025 End: 01-38-6260Yzilfg outpatient visit 15 minutesCorey José Miguel DO Work Phone: [facility] BCP OBComment on above:Postmenopausal bleeding Start: 02-27-2025 End: 87-68-8545nqhbbozijzVLXKP FAZIONot AvailableStart: 07-08-2024 End: 75-44-5048AntrhrJdyukpby D Zahler DO Work Phone: [facility] NB OPHTComment on above:Age-related nuclear cataract of both eyesStart: 22-52-6403Zgizhhhac for general adult medical examination without abnormal findingsDR RADHA HOYThe [facility] HospitalStart: 06-15-2022 End: 54-85-1277wskkppetlnKW RADHA HOYFacility:C8Ciaef: 06-15-2022 End: 51-51-3172Smgvqrhao for general adult medical examination without abnormal findingsDR RADHA HOYFacility:N0Gatns: 07-07-2021 End: 78-03-9293ketaauiqiyWP RADHA HOYFacility:H1 Procedures DateProcedureProcedure DetailPerforming ClinicianStart: 85-64-0774Bljkyxpk kinase totalTayyab Taurus DO Work Phone: Start: 82-25-2395Osrfrqeuf b core antibody hbcab total Moiz Birmingham MD Work Phone: Start: 20-34-3933Bznj ia hepatitis b surface antigen Moiz Birmingham MD Work Phone: Start: 67-06-1889Ezpuw dip stick/tablet rgnt auto w/o microscopyHrell Birmingham MD Work Phone: Start: 56-90-8815Ohgzo of lactateJoalfonzo Arreola MD Work Phone: Start: 67-25-4657Qnn routine ecg w/least 12 lds trcg only w/o i&rJelisa Arreola MD Work Phone: Start: 68-69-4849R-reactive proteinJohn Arreola MD Work Phone: Start: 05-28-2025 End: 97-59-3656Jctxuemzpobyw rate rbc non-automatedAndrew Johnathan DO Work Phone: Start: 63-28-8025Ynhvcbeuui exam chest single view John Arreola MD Work Phone: Start: 98-32-7120Bpikf metabolic panel calcium total Heidi Kaur RACING 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-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 PROCESS [employer] SUPERVISOR Work Phone: Start: 08-98-8576Aspwzfw function panelAliulises Kaur RACING SECRETARY-NEEDLE PROCESS [employer] SUPERVISOR Work Phone: Start: 63-25-4566Zcdrjv-up visitFollow-upCOURTNEY PAYNEStart: 14-68-5370Gpcfdkyh screenMetro 9Start: 18-00-1700Pqcxufrk screenADAM EDYComment on above:Performed By: #### TSC #### [facility] ([id number]) [address] [place] [address] VIRStart: 12-69-6801Uyqko typing serologic Florian Salvador MD Work Phone: start: 46-81-0500Eotkzoskxfybo metabolic panelAdaterry Snow MD Work Phone: Start: 60-96-0789BKDRYESY ABORClayton Salvador MD Work Phone: start: 84-16-1749DXX CBC WITH AUTO DIFFCorey José Miguel DO Work Phone: Start: 75-19-9176ACO BASIC METABOLIC PANELCorey José Miguel DO Work Phone: Start: 62-41-9237BBW 12-LEADCorey José Miguel DO Work Phone: Excision of lymph nodeMichael NILL Extraction of cataractMichael NILL Total abdominal hysterectomy with bilateral salpingo-oophorectomyMichael NILL Plan of Treatment DateCare ActivityDetailAuthorStart: 63-34-4394Wfhkn panelCholesterolMetroHealth Start: 79-67-4940Zntxw BMI ScreeningAdult BMI ScreeningProTrihealth Good [facility] Start: 63-81-1676Meecwud ScreeningTobacco ScreeningWVUMedicine Harrison Community Hospitalca Health SystemStart: 99-36-7930Bvglb BMI ScreeningAdult BMI ScreeningProOhiohealth O'Bleness Hospitalca Health SystemStart: 54-24-7512Urtzgjd ScreeningTobacco ScreeningProOhiohealth O'Bleness Hospitalca Health SystemStart: 60-25-8680Baert BMI ScreeningAdult BMI ScreeningProOhiohealth O'Bleness Hospitalca Health SystemStart: 97-22-7131Eteogki ScreeningTobacco ScreeningProOhiohealth O'Bleness Hospitalca Health SystemStart: 79-70-1102Cfakakb ScreeningTobacco ScreeningProOhiohealth O'Bleness Hospitalca Health SystemStart: 12-04-2025 End: 19-30-8725Eelsjvq encounter obhtvhiga98/22/2026 1:20 PM EST Procedure Visit [facility] [address] [facility] [address] [place] [address] Liborio Miranda, DPTerry [address] [facility] [address] [place] [address] [facility] CI PODIATRYStart: 09-04-2025 End: 35-49-2957Fpgqipp encounter procedureNOMS CI PODIATRYComment on above: ArrivedStart: 17-40-0087Pmfvnawgx vaccinationInfluenza Vaccine (#1)[facility] Start: 68-02-8840Omozxgwar vaccinationNOMS HealthcareStart: 06-30-2025 End: 27-73-6384Svkhzvz encounter fjnxjvwyp45/18/2025 9:00 AM EDT Office Visit Zakia Pride [facility] - Medical Oncology [address] [place] [phone] Lindsay Rodriguez PA [address] [place] [address] [facility] - Medical OncologyStart: 06-09-2025 End: 42-08-7003Eptufyu encounter procedureNOMS NMA PODComment on above:Arrived Start: 05-27-2025 End: 11-31-1208Nlgjksq encounter ctgasuuur89/15/2025 11:30 AM EDT Office Visit Zakia [facility] - Medical Oncology [address] [place] [address] Lindsay Rodriguez PA [address] [place], [place] [phone] (Work) Zakia [facility] - Medical OncologyStart: 05-12-2025 End: 74-34-6705Tmixhnfqa to same day surgery kyoukb1605/12/2025 1:00 PM EDT - 05/12/2025 3:15 PM EDT Surgery [facility] [address] [place] [address] Malachi Snow MD [address] [facility], [address] [place] [address] DAVINCI HYSTERECTOMY SALPINGO OOPHORECTOMYProOhiohealth O'Bleness Hospitalca [facility] Division of [facility] HospitalComment on above:DAVINCI HYSTERECTOMY SALPINGO OOPHORECTOMYStart: 05-12-2025 End: 29-62-2896UJUQCVS DISSECTION LYMPH NODE PELVIC SENTINELDAVINCI DISSECTION LYMPH NODE PELVIC SENTINEL ENDOMETRIAL ADENOCARCINOMA 05/12/2025 1:00 PM EDT [facility] Hospitaltart: 05-12-2025 End: 87-25-1659ZAOKLPR HYSTERECTOMY SALPINGO OOPHORECTOMYDAVINCI HYSTERECTOMY SALPINGO OOPHORECTOMY ENDOMETRIAL ADENOCARCINOMA 05/12/2025 1:00 PM EDTPUNC Health Lenoirtart: 14-32-4866Ltfybygbeb hospital visit by dbzmoubpu64/30/2025 1:00 PM EDT Hospital En[facility] [address] [place] [address] Malachi Snow MD [address] [facility] HospitalTriptelligent [facility], [address] [place] [address] [facility] HospitalStart: 05-08-2025 End: 17-47-1472Mkmrlvu encounter xiqsmqdkp06/26/2025 1:45 PM EDT Procedure visit [facility] [address] [place] [address] [place] [address]BvlQrkira [facility] Start: 04-30-2025 End: 63-78-0938NE Abdomen and Pelvis W contrast IVCT abdomen and pelvis with contrast Imaging STAT Endometrial cancer (CMS-HCC) Expected: 04/30/2025,Expires: 04/30/2026[facility] SystemComment on above:Expected: 04/30/2025, Expires: 04/30/2026Start: 04-30-2025 End: 07-90-3136IB Chest limited W contrast IVCT chest with contrast Imaging STAT Endometrial cancer (CMS-HCC) Expected: 04/30/2025, Expires: 04/30/2026[facility] Work Phone: Comment on above:Expected: 04/30/2025, Expires: 04/30/2026Start: 04-21-2025 End: 18-91-4114Hkaakmj encounter procedureNOMS BCP OBComment on above:Arrived Start: 03-18-2025 End: 49-07-4854Kkpykwe encounter dxucpeqwk16/06/2025 2:40 PM EDT Consult [facility] [address] [place] [address] Yovani Valdez, DO [address] [place], [place] [id number] [facility] BCP OBStart: 03-18-2025 End: 22-21-2308Pmlwchetggad / ancillary services lkpcwifgrs10/06/2025 2:00 PM EDT Ancillary Procedure [facility] [address] [facility] [place] [address] [facility] BCP OBStart: 02-27-2025 End: 52-02-1816PF PelvisUS Pelvis w/ TV Imaging Routine Postmenopausal bleeding Expected: 02/27/2025, Expires: 08/29/2025[facility] Work Phone: comment on above:Expected: 02/27/2025, Expires: 08/29/2025Start: 02-27-2025 End: 52-81-5622Muqdeyj encounter mrtfjjjdo73/17/2025 10:00 AM EDT Office Visit [facility] [address] [place] [address]10-863-4687 Yovani Valdez DO [address] [facility] [place] [address] ArrivedNOMS BCP OBComment on above:ArrivedStart: 07-22-2024 End: 43-09-2241Erlsgit encounter /09/2024 7:45 AM EDT Procedure Visit [facility] EXT DEP Arturo Echols, DO [address] [place] [address] [facility] EXT DEPStart: 45-48-7346SBHPN- 19 Vaccine ( season)COVID-19 Vaccine ( season)[facility] Start: 53-89-3286Ymmprreou vaccinationInfluenza Vaccine (#1)[facility] Healthcare Start: 45-11-4549Jhysvb wellness visitAnnual Wellness Visit ([id number])[facility] Start: 60-95-5365Bzen Risk ScreeningFall Risk ScreeningProOhiohealth O'Bleness Hospitalca [facility] Start: 96-29-2183Wdhbwqpnqfso Vaccine: 65+ Years (1 of 1 - PCV)Pneumococcal Vaccine: 65+ Years (1 of 1 - PCV)NOM HealthcareStart: 90-35-5357Nvtbumitv for osteoporosisBone DensitometryMetroHealthStart: 15-68-0594Mttdunrhn B (HBV) Vaccine (optional start 60+ years)Hepatitis B (HBV) Vaccine (optional start 60+ years)[facility]: 07-39-3461DTZ vaccine (adult) (1 - Risk 60-74 years 1- dose series)RSV vaccine (adult) (1 - Risk 60-74 years 1-dose series)[facility] Start: 17-54-0013Krhtzwhvkhsu vaccinationPneumococcal Vaccine(s) (50+ yrs) (1 of 1 - PCV)[facility]: 86-57-2428Hlhjxkbwtbvg Vaccine: 65+ Years (1 of 1 - PCV)Pneumococcal Vaccine: 65+ Years (1 of 1 - PCV)[facility] HealthcareStart: 65-02-9700Ghebfsdy (RZV) Vaccine (1 of 2)Shingles (RZV) Vaccine (1 of 2) [facility]: 40-03-5446Rxfvdluet for malignant neoplasm of colonMetroHealth Start: 77-39-0410Xnxzxzpqb for malignant neoplasm of breastNOMS HealthcareStart: 51-70-7771TEvX,Tdap and Td Vaccines (1 - Tdap)DTaP,Tdap and Td Vaccines (1 - Tdap)[facility] SystemStart: 93-41-2149Ijlfpmjsl A (HAV) Vaccine (optional start 19+ years)Hepatitis A (HAV) Vaccine (optional start 19+ years)[facility] Start: 52-39-5858Zftid BMI Follow Up PlanAdult BMI Follow Up PlanMarymount Hospital SystemStart: 62-52-8354Jnpsz BMI ScreeningAdult BMI ScreeningProTrihealth Good Samaritan Hospital SystemStart: 77-82-0624Seks BoosterTdap BoosterMetroHealthStart: 80-97-2013Mhtncwcicf ScreeningDepression ScreeningECU Health North Hospitaltart: 02-77-4033Ifuctitmi for malignant neoplasm of colonNOMS Healthcare End: 29-03-3224Ocgktwhn pathology procedureTHE HEALTHALLIANCE HOSPITAL: BROADWAY CAMPUSHealthEngine SYSTEM Work Phone: comment on above:One time, now for 1 Occurrences starting 05/28/2025 until 05/28/2025, 1 completedBacteria identified in Urine by CultureTHE [facility] SYSTEM Work Phone: comment on above:When Specimen Available/Needed for 1 Occurrences starting 5Basic metabolic 2000 panel - Serum or PlasmaBASIC METABOLIC PANEL Lab Routine Daily until discontinued starting 05/29/2025, 1 completedMetroHealthComment on above:Daily until discontinued starting 05/29/2025, 1 completed End: 38-06-9571FTD W Auto Differential panel - BloodCBC with auto diff Lab Routine Endometrial cancer (CMS-HCC) Preop testing 1 Occurrences starting until 05/01/2026[facility] HospitalP[facility]i Work Phone: Comment on above:1 Occurrences starting 05/01/2025 until 05/01/2026BC W Auto Differential panel - BloodCOMPLETE BLOOD COUNT W/DIFF Lab Routine Daily until discontinued starting 05/29/2025, 1 completedTHE [employer] SYSTEM Work Phone: comment on above:Daily until discontinued starting 05/29/2025, 1 completed End: 49-04-3439Ybapwdkxqeznm metabolic 2000 panel - Serum or PlasmaComprehensive metabolic panel Lab Routine Endometrial cancer ([facility]) Preop testing 1 Occurrences starting 05/01/2025 until 05/01/2026[facility] HospitalRevcaster [facility] SystemComment on above:1 Occurrences starting 05/01/2025 until 05/01/2026 End: 26-95-6013Tvgfpsoglg includes GFR, serumCreatinine includes GFR, serum Lab Routine Endometrial cancer ([facility]) Pre-procedure lab exam 1 Occurrences starting 04/30/2025 until 04/30/2026[facility] HospitalRevcaster [facility] SystemComment on above:1 Occurrences starting 04/30/2025 until 04/30/2026 End: 10-84-2547DMV 12 leadECG 12 lead ECG Routine Endometrial cancer ([facility]) Preop testing 1 Occurrences starting 05/01/2025 until 05/01/2026[facility] HospitalRevcaster [facility] SystemComment on above:1 Occurrences starting 05/01/2025 until 05/01/2026 End: 96-39-9775KJJ-1/MS-2/MSH-6/PMS2 (IHC)MLH-1/MS-2/MSH-6/PMS2 (IHC) Pathology and Cytology STAT Endometrial cancer ([facility]) 1 Occurrences starting 05/27/2025 until 05/27/2026[employer]el[employer] Work Phone: Comment on above:1 Occurrences starting 05/27/2025 until 05/27/2026 Immunizations Immunization DateImmunizationNotesCare ZwvxdvfmWkrbsyug19-38-9719EHNT-GwW-9 (COVID-19) mRNA BNT-162b2 vaxMichael NILL 073-2975Svbusk-MjrflMarion Hospital Surgery [place] 70-33-7318IVWQ-CoV-2 (COVID-19) mRNA BNT-162b2 Davey TAMEZ 261-2618Ztkiay-FjvvrMarion Hospital Surgery [place] 80-98-3272aekaxtsul virus vaccine, unspecified formulationArturo Echols DO Work Phone: [facility] Payers DatePayer CategoryPayerPolicy [id number] Care Other (unspecified)[facility] [id number] 2023Medicare [id number] 2023Medicare FFSMEDICARE [id number] Health Insurance [id number] [id number] [id number] 2.16840.1.355810.3.579.[id number] 2.840.1.763141.3.57[id number] 2.840.1.001149.3.579.[id number] 2.840.1.376854.3.57[id number] 2.840.1.355505.3.579.2.289711-77-0685Qvvllur812826809 2.840.1.459584.3.579.2.[id number] 2.840.1.022849.3.579.2.5198[id number] 2.840.1.632300.3.579.2.174[id number] 2.0.1.848142.3.579.2.12729-82-7460Hhbsjkq799896685 2.840.1.706470.3.579.[id number] 2.840.1.473857.3.579.2.661046-22-6479Dxweivh94269518 2.840.1.766928.3.579.2.473836-80-1958Wgekvwf94989427 2.16.840.1.561999.3.579.2.672136-68-0855Abjiccr85691275 2.16.840.1.189106.3.579.2.014535-71-9656Fksuhzl35105877 2.16.840.1.217647.3.579.2.152571-24-5522Oginjfc75183375 2.16.840.1.334410.3.579.2.482395-03-2952Lnhdlqf2273922 2.16.840.1.688383.3.579.2.857824-87-5955Haabenr9543925 2.16.840.1.711202.3.579.2.727394-62-0950Anlarhe7144814 2.16.840.1.661965.3.579.2.022172-71-2814Eqbtkst36587324 2.16.840.1.114707.3.579.2.381MjsyztmV0157331604 Social History DateTypeDetailFacilityStart: 05-21-2024 End: 20-72-0785Lbiapdy smoking status NHISEx-smokerNOMS Healthcare Work Phone: Start: 11-13-1973 End: 66-16-4683Wfvbfvb of tobacco useCurrent smokerNOMS HealthcareStart: 11-13-1971 End: 66-33-0017Xreouxy of tobacco useCigarette SmokerNOMS HealthcareStart: 05-21-2024 End: 99-16-4726Qmhokjh use and exposureSmokeless tobacco non-userNOMS Healthcare Start: 05-21-2024 End: 58-85-3133Wvqarhzco beverage intakeLifetime non-drinker (finding)[facility] HealthcareStart: 07-20-2023 End: 53-47-9314Bnjyrwa of Social functionNOMS HealthcareStart: 07-20-2023 End: 57-23-0870Tgijlvb use panelNOMS HealthcareStart: 09-72-0168Egj assigned at birthNot on fileNOMS HealthcareStart: 54-32-2205Tzqqwpd smoking status NHISNever smoked tobaccoProOhiohealth O'Bleness Hospitalca [facility] SystemStart: 04-30-2025 End: 66-54-2992Eivyldxpe beverage intakeEx-drinker (finding)[facility] mycujoo SystemStart: 26-57-2716CzyyntqluHaoxdsvJmgIumddb [facility] SystemStart: 06-18-2015 End: 12-67-4712UjjUsrsiz (finding)[facility] HospitalTobacco smoking status NHISTobacco smoking consumption unknownMetroHealth Work Phone: has the electric, gas, oil, or water company threatened to shut off services in your home in past 12MoNoMetroHealth(I/We) worried whether (my/our) food would run out before (I/we) got money to buy more. Never trueMetroHealthSexual OrientationAdena Regional Medical Center [facility] [place] Goals DatePatient GoalDesired Activity/StatePersonal health goal Clinical Notes 02-27-2025 to 09-17-2025 Note Date & SgbnEgxqVfxqwzsi78-82-0208 NoteGeneral Surgery Office/Clinic Note Chief Complaint consultation [...] 50,000 intl units (1.25 mg) oral capsule, 32186 International_Unit= 1 cap(s), Oral, Daily Allergies Levaquin [...] Recorded SARS-CoV-2 (COVID-19) mRNA BNT-162b2 vax 10/30/2021 RecordedSt. Charles HospitalComment on above:Result Comment: Electronically Signed By: DASHAWN LARES, Karan Delacruz\Date and Time Signed: 09/17/25 15:55 [id number] History of Present illness Narrative* CHACHA Velasquez - 06/30/2025 9:00 AM EDT Subjective: Delmis Mtz is a 65 y.o. female who is s/p a YVGS-NOS-KCSF on 05/12/25. Pathology: Stage IB grade 1 [...] 05/12/2025 Performed by Malachi Snow MD at [facility] DAVINCI ROBOTIC ASSISTED DISSECTION LYMPH NODE PELVIC SENTINEL Bilateral 05/12/2025 Performed by Malachi Snow MD at [facility] DILATION AND CURETTAGE OF UTERUS TONSILLECTOMY Past Medical History: Diagnosis Date Arthritis Cancer ([facility] [place] endometrial Cataract implants COPD (chronic obstructive pulmonary disease) ([facility] [place]) GERD (gastroesophageal reflux disease) Hyperlipidemia Hypertension Obesity [...] true Transportation Needs: Unknown (05/28/2025) Received from [employer] - Transportation Lack of Transportation (Medical): No Interpersonal Safety: Unknown (05/28/2025) Received from [employer] Humiliation, Afraid, Rape, and Kick questionnaire Emotionally Abused: No Housing Instability: Unknown (05/28/2025) [facility] Stability Vital Sign Unable to Pay [...] Patient Active Problem List Diagnosis Endometrial cancer ([facility]) Plan: Post op care - she [...] CHACHA Velasquez 06/30/25 0907 documented in this encounterNationwide Children's Hospital07-28-2025 History of Present illness Narrative* Cuco [...] drug reaction. CLIFFORD Sepulveda documented in this encounterCrittenton Behavioral HealthXqbyowmbat79-61-7168 Telephone encounter Note* Telephone Encounter - Tony Dupont MD - 05/30/2025 2:12 PM EDT Discussed with pt inpatient. MqumfZsyifo96-80-8069 Miscellaneous Notes* Telephone Encounter - Tony Dupont MD - 05/30/2025 2:12 PM EDT Discussed with pt inpatient. documented in this [id number] Telephone encounter Note* Telephone Encounter - Radhika [...] paper from ED visit: Clipped from Script: JnojaXrrszh73-27-3755 Miscellaneous Notes* Telephone Encounter - Radhika Baer [...] answer, lm on to return call to [phone]. See providers note. * Telephone Encounter - [...] a plan of action. documented in this g[id number] Telephone encounter Note* Telephone Encounter - Maryana Mahan RN - 05/30/2025 10:57 AM EDT Called pt, no answer, lm on to return call to [phone]. See providers note. [facility] Work Phone: 1(767) 370-326807-18-2025 Telephone encounter Note* Telephone Encounter - Maryana [...] amount needed to complete the written protoc KpxntLtiygp20-27-5001 Telephone encounter Note* Telephone Encounter - Nirali [...] to follow up with pcp regarding prescription TqahwFjxakn08-89-3624 Telephone encounter Note* Telephone Encounter - Velma [...] as well as a plan of action. RjwjhPzugvl77-93-6298 NoteDISCHARGE [address] [address] Drake Delmis Date of : 1960 65 year old female Attending Mario Engel MD Date of Admission 05/28/2025 Date of Discharge 05/29/2025 Hospital Problems as of 05/29/2025 * (Principal) Rash and nonspecific skin eruption BRIAN (obstructive sleep apnea) Discharge Procedure Orders Sleep Lab Studies Service Requests Standing Status: Future Referral Priority: Routine Referral Type: Service Level Authorization Referral Location: [facility] Number of Visits Requested: 2 Expiration Date: 05/29/26 No future appointments. Pt elected and instructed to follow up with her local tree wrapper Condition at Discharge unchanged Symptoms to look [...] pruritic rash as a referral from a [place] [facility], with a pmhx of COPD, [...] MG tablet Ta (more content not included)...[facility]07[facility]17[facility] Hospital course Narrative* Apryl Coe MD - 05/29/2025 1:42 PM EDT Images from the original note were not included. DISCHARGE SUMMARY [address] [address] Delmis Mtz Date of : 1960 65 year old female Attending Mario Engel MD Date of Admission 05/28/2025 Date of Discharge 05/29/2025 Hospital Problems as of 05/29/2025 * (Principal) Rash and nonspecific skin eruption BRIAN (obstructive sleep apnea) Discharge Procedure Orders Sleep Lab Studies Service Requests Standing Status: Future Referral Priority: Routine Referral Type: Service Level Authorization Referral Location: [facility] Number of Visits Requested: 2 Expiration Date: 05/29/26 No future appointments. Pt elected and instructed to follow up with her local tree wrapper Condition at Discharge unchanged Symptoms to look [...] pruritic rash as a referral from a [place] [facility], with a pmhx of COPD, [...] 05/29/2025 3:19 PM EDT documented in this [id number] Hospital Discharge instructions* Discharge Instructions* Apryl Coe [...] by video with Linda or with a tree wrapper in your local area * Attachments The following attachments cannot be sent through Care Everywhere. * Adverse Drug Reactions Discharge Instructions, Adult (Honduran) documented in this [id number] NoteDermatology Progress Note Subjective: pt notes she [...] No oral erosions identified Labs/Imaging/Pathology: Reviewed in [facility], significant for: WBC 19.4 Preliminary biopsy read [...] with Dr. Greg Dupont MD Resident in [facility]ologySt. [facility]07-[facility] History of Present illness Narrative* Tony [...] original note were not included. Internal Medicine Long-Term Plan Note Patient: Delmis Mtz Admission Date: [...] MD Internal Medicine Resident PGY-2 Available via [employer] Subjective: HPI: Per patient, Noticed rash started 05/24/25 from lower abdomen, but liekly also started from back that she did notinitially notice, then spread all over her body including face and lower extremities. Rash not painful, intermittently itchy Went to Derm outpatient appt for rash, was instructed to come to ED for evaluation of skin rash concerning for SJS Per chart review, Rubber Block Layer at at [facility] in [place] 05/28/25: -pt started oral clindamycin on 05/19/25; pt reports she was given this due to an operation on her toe and then stopped taking 05/25/25; pt also had a hysterectomy on 05/12/25 -s/p 2 steroid shots (one on Monday one on Monday), prednisone 10 mg (planned , cipro (for bladderinfection) hydroxyzine; OTC cortisone cream and spray, OTC Benadryl [facility] 05/27/25: -s/p a QNMG-BDX-VWBM on 05/12/25. Pathology: Stage IB grade 1 [...] MICU Clifford Wyatt MD documented in this [id number] Consult note* Bennie Clark OT - 05/29/2025 [...] Appearance: supine in bed upon arrival, IV, teletypesetter monitor, BP cuff, pulse ox, Alertness: WFL Affect: WNL Cooperation/Behavior: Appropriate dialogue with therapist and Pleasant and cooperative Communication: WFL Pain: Pain ratin/10, Location: no pain Pain Relief Interventions Implemented: None required; No pain at this time Self Care: Assistance Level Dep Max Mod Min CG CS DS AZ I Set-Up Comment Feeding x Grooming/Hygiene x Seated EOB Bathing:UB x Simulated Bathing:LB x Simulated Dressing:UB x Managing gown Dressing: LB x Based on functional reach Toileting x Anticipate Transfers/Bed Mobility: Assistance Level Dep Max Mod Min CG CS DS AZ I Set-Up Comment Toilet Transfers x Based [...] With Patients permission ordered no equipment via LISNR Order. If any questions contact [facility] DME Provider at [phone]. 05/29/2025 6 Clicks Daily Activity OT Help [...] Guard Assist/Supervision 4 - Non = Modified [place]/Independent ASSESSMENT: Patient is functionally appropriate for discharge home once medically cleared. No further Occupational Therapy Services reccommended at this time. PLAN: D/C OT able to discuss the evaluation findings and treatment plan with the patient/family. The patient/family did participate in the development of plan and goals. Bennie Clark OTR/L NA = Not Assessed, I = Independent, AZ = Modified Independent, Sup = Supervised, Set [...] [2] History reviewed. No pertinent surgical history. [id number] Consult note* Bennie Clark OT - 05/29/2025 [...] Appearance: supine in bed upon arrival, IV, teletypesetter monitor, BP cuff, pulse ox, Alertness: WFL Affect: WNL Cooperation/Behavior: Appropriate dialogue with therapist and Pleasant and cooperative Communication: WFL Pain: Pain ratin/10, Location: no pain Pain Relief Interventions Implemented: None required; No pain at this time Self Care: Assistance Level Dep Max Mod Min CG CS DS AZ I Set-Up Comment Feeding x Grooming/Hygiene x Seated EOB Bathing:UB x Simulated Bathing:LB x Simulated Dressing:UB x Managing gown Dressing: LB x Based on functional reach Toileting x Anticipate Transfers/Bed Mobility: Assistance Level Dep Max Mod Min CG CS DS AZ I Set-Up Comment Toilet Transfers x Based [...] With Patients permission ordered no equipment via LISNR Order. If any questions contact [facility] DME Provider at [phone]. 05/29/2025 6 Clicks Daily Activity OT Help [...] Guard Assist/Supervision 4 - Non = Modified [place]/Independent ASSESSMENT: Patient is functionally appropriate for discharge home once medically cleared. No further Occupational Therapy Services reccommended at this time. PLAN: D/C OT able to discuss the evaluation findings and treatment plan with the patient/family. The patient/family did participate in the development of plan and goals. Bennie Clark OTR/L NA = Not Assessed, I = Independent, AZ = Modified Independent, Sup = Supervised, Set [...] No pertinent surgical history. * Ofelia Siddiqui, [facility]-DIRECTOR OF INCOME TAX - 05/29/2025 9:17 AM EDTAssociated Order(s): IP DIRECTOR OF INCOME TAX SERVICE REQUEST SPEECH-LANGUAGE PATHOLOGY ACUTE CLINICAL SWALLOW EVALUATION AC7-412/1 Referral received, chart reviewed and history is noted. Reason for DIRECTOR OF INCOME TAX Consult: Decline in speech, cognition, or swallowing [...] She was in the Derm clinic at [facility] in [place] and sent for concerns of SJS. Pt [...] mechanism/Laryngeal Function: Dentition: Natural dentition Oral Health: Embarrass and Moist Secretion management: Independently managing Cough: [...] None Known Precipitating: Skin Rash w/ edma [place] Swallow Protocol: State: Awake, alert, participatory Brief [...] either during or immediate after completion) *The [place] Swallow Protocol (YSP) is a standardized measure [...] ASSESSMENT: Impression: Pt found at bedside, informed DIRECTOR OF INCOME TAX that there were no complications during intake of breakfast (Sausage Muffin). RN present at beginning of session where pt pills presented- no overt s/s or pulmonary distress noted during pills. Pt participated in PO trials of regular thin for evaluation of swallowing safety and efficiency w/ no overt s/s of aspiration noted. Pt yields Pass on the [place] Swallow Protocol, which has a high sensitivity [...] home, recommend Independent, no supervision Denton ANG, DIRECTOR OF INCOME TAX Student Student Statement: This student therapist collaborated with a licensed, supervising therapist for patient assessment and/or treatment per the identified POC, as appropriate. This document is not finalized until reviewed and cosigned by the licensed, supervising therapist. Solution Coordinator Statement: I was present and participated in the delivery of services for this encounter. In addition, I am responsible for the skilled judgment and assessment of all interventions provided. 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 If any questions contact [facility] DME Provider at [phone]. 05/29/2025 6 Clicks Basic Mobility PT Difficulty [...] NA = Not Assessed, I = Independent, AZ = Modified Independent, Sup = Supervised, Set [...] for HTN, HLD, GERD who presented to [facility] with diffuse rash. Pt had hysterectomy [...] and 50mg this morning. Pt sent to [facility] today by outside tree wrapper to r/o SJS. Rash is pruritic/burning but is not painful or tender. Pt does not have blisters or erosions. Does not note ocular, oral, or urogenital symptoms. PMHx/Shx/FHx Reviewed in [facility], significant as above ROS: As noted in [...] Pertinent Labs, imaging, and/or pathology: Reviewed in [facility], significant for: WBC 19.4 CRP 4.5 Assessment [...] procedure. Mayra Garza MD documented in this [id number] NoteOCCUPATIONAL THERAPY INITIAL EVALUATION Patient seen from [...] Appearance: supine in bed upon arrival, IV, teletypesetter monitor, BP cuff, pulse ox, Alertness: WFL Affect: WNL Cooperation/Behavior: Appropriate dialogue with therapist and Pleasant and cooperative Communication: WFL Pain: Pain ratin/10, Location: no pain Pain Relief Interventions Implemented: None required; No pain at this time Self Care: Assistance Level Dep Max Mod Min CG CS DS AZ I Set-Up Comment Feeding x Grooming/Hygiene x Seated EOB Bathing:UB x Simulated Bathing:LB x Simulated Dressing:UB x Managing gown Dressing: LB x Based on functional reach Toileting x Anticipate Transfers/Bed Mobility: Assistance Level Dep Max Mod Min CG CS DS AZ I Set-Up Comment Toilet Transfers x Based [...] With Patients permission ordered no equipment via LISNR Order. If any questions contact [facility] DME Provider at [phone]. 05/29/2025 6 Clicks Daily Activity OT Help [...] Guard Assist/Supervision 4 - Non = Modified [place]/Independent ASSESSMENT: Patient is functionally appropriate for discharge home once medically cleared. No further Occupational Therapy Services reccommended at this time. PLAN: D/C OT able to discuss the evaluation findings and treatment plan with the patient/family. The patient/family did participate in the development of plan and goals. Bennie Clark OTR/L NA = Not Assessed, I = Independent, AZ = Modified Independent, Sup = Supervised, Set up = Physical Assistance for Set-up Only, Min = Minimal Assistance, Mod = Moderate Assistance, Max = Max assistance; Dep = Dependent; AROM = Active Range of Motion;PROM=Passive Range of Motion; MMT = Manual Muscle Test; UB = Upper Body; LB = Lower Body [1] History r (more content not included)...[employer] [id number] Consult note* Ofelia Siddiqui CCC-DIRECTOR OF INCOME TAX - 05/29/2025 9:17 AM EDTAssociated Order(s): IP DIRECTOR OF INCOME TAX SERVICE REQUEST SPEECH-LANGUAGE PATHOLOGY ACUTE CLINICAL SWALLOW EVALUATION [id number]/1 Referral received, chart reviewed and history is noted. Reason for DIRECTOR OF INCOME TAX Consult: Decline in speech, cognition, or swallowing [...] She was in the Derm clinic at [facility] in [place] and sent for concerns of SJS. Pt [...] mechanism/Laryngeal Function: Dentition: Natural dentition Oral Health: [place]arrass and Moist Secretion management: Independently managing Cough: [...] either during or immediate after completion) *The [place] Swallow Protocol (YSP) is a standardized measure [...] ASSESSMENT: Impression: Pt found at bedside, informed DIRECTOR OF INCOME TAX that there were no complications during intake of breakfast (Sausage Muffin). RN present at beginning of session where pt pills presented- no overt s/s or pulmonary distress noted during pills. Pt participated in PO trials of regular thin for evaluation of swallowing safety and efficiency w/ no overt s/s of aspiration noted. Pt yields Pass on the [place] Swallow Protocol, which has a high sensitivity [...] Independent, no supervision Denton Martino BA CSD, DIRECTOR OF INCOME TAX Student Student Statement: This student therapist collaborated with a licensed, supervising therapist for patient assessment and/or treatment per the identified POC, as appropriate. This document is not finalized until reviewed and cosigned by the licensed, supervising therapist. Solution Coordinator Statement: I was present and participated in the delivery of services for this encounter. In addition, I am responsible for the skilled judgment and assessment of all interventions provided. Ofelia Siddiqui M.A., EDUARDA-DIRECTOR OF INCOME TAX Speech Language Pathologist Pager: [phone] [facility] Secure Chat Office: [phone] [1] Current Facility-Administered Medications: predniSONE (DELTASONE) tablet, [...] BID, David Condonyab, DO, 40mg at 05/29/25918 [id number] NoteSPEECH-LANGUAGE PATHOLOGY ACUTE CLINICAL SWALLOW EVALUATION AC7-412/1 Referral received, chart reviewed and history is noted. Reason for DIRECTOR OF INCOME TAX Consult: Decline in speech, cognition, or swallowing [...] She was in the Derm clinic at [facility] in [place] and sent for concerns of SJS. Pt [...] mechanism/Laryngeal Function: Dentition: Natural dentition Oral Health: Embarrass and Moist Secretion management: Independently managing Cough: [...] either during or immediate after completion) *The [place] Swallow Protocol (YSP) is a standardized measure [...] ASSESSMENT: Impression: Pt found at bedside, informed DIRECTOR OF INCOME TAX that there were no complications during intake of breakfast (Sausage Muffin). RN present at beginning of session where pt pills presented- no overt s/s or pulmonary distress noted during pills. 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 If any questions contact [facility] DME Provider at [phone]. 05/29/2025 6 Clicks Basic Mobility PT Difficulty [...] NA = Not Assessed, I = Independent, AZ = Modified Independent, Sup = Supervised, Set [...] [2] History reviewed. No pertinent surgical history. 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 If any questions contact [facility] DME Provider at [phone]. 05/29/2025 6 Clicks Basic Mobility PT Difficulty [...] NA = Not Assessed, I = Independent, AZ = Modified Independent, Sup = Supervised, Set [...] [2] History reviewed. No pertinent surgical history.[facility] 05-28-2025 History and physical note* Yehuda Condon DO - 05/28/2025 8:25 PM EDT Images from the original note were not included. [facility] Step Down Unit - H&P Patient: Delmis Mtz : 1960 Sex: female Room: [place] [address] Admission: 05/28/2025 Today: 05/28/2025 (Length of stay: 1 day(s)) HISTORY OF PRESENT ILLNESS: CHIEF COMPLAINT: Chief Complaint Patient presents with Generalized redness/erythema/rash Started clindamycin on 05/19. Rash all over body Monday morning. Stopped clindamycin Monday night. Saw doctor on Monday & received cortisone shot Monday & Monday. Monday started prednisone. Seen tree wrapper at [facility] in [place] today & sent here for rustam sewell [...] She was in the Derm clinic at [facility] in [place] and sent for concerns of SJS. Pt [...] vomiting, new abdominal pain (Laparoscopic sites are drier take off tender, but C/D/I), headache, dysphagia, and blurry [...] R wave progression, normal QTc CONSULTS: IP DIRECTOR OF INCOME TAX SERVICE REQUEST ASSESSMENT AND PLAN: Delmis Mtz [...] DO PGY-1 Internal Medicine Stepdown Unit Pager [phone] [1] History reviewed. No pertinent past medical history. [2] History reviewed. No pertinent surgical history. [3] No family history on file. [4] [5] No current facility-administered medications on file prior to encounter. No current outpatient medications on file prior to encounter. [6] Allergies Allergen Reactions Bactrim [Sulfamethoxazole W-Trimethoprim] Clindamycin Levaquin [Levofloxacin] Penicillins [employer] Work Phone: 1(627) 707-448807-16-2025 History and physical note* Yehuda Condon DO - 05/28/2025 8:25 PM EDT Images from the original note were not included. [facility] Step Down Unit - H&P Patient: Delmis Mtz : 1960 Sex: female Room: [place] [address] Admission: 05/28/2025 Today: 05/28/2025 (Length of stay: 1 day(s)) HISTORY OF PRESENT ILLNESS: CHIEF COMPLAINT: Chief Complaint Patient presents with Generalized redness/erythema/rash Started clindamycin on 05/19. Rash all over body Monday morning. Stopped clindamycin Monday night. Saw doctor on Monday & received cortisone shot Monday & Monday. Monday started prednisone. Seen tree wrapper at [facility] in [place] today & sent here for rustam sewell [...] She was in the Derm clinic at [facility] in [place] and sent for concerns of SJS. Pt [...] vomiting, new abdominal pain (Laparoscopic sites are drier take off tender, but C/D/I), headache, dysphagia, and blurry [...] R wave progression, normal QTc CONSULTS: IP DIRECTOR OF INCOME TAX SERVICE REQUEST ASSESSMENT AND PLAN: Delmis Mtz [...] DO PGY-1 Internal Medicine Stepdown Unit Pager [phone] [1] History reviewed. No pertinent past medical history. [2] History reviewed. No pertinent surgical history. [3] No family history on file. [4] [5] No current facility-administered medications on file prior to encounter. No current outpatient medications on file prior to encounter. [6] Allergies Allergen Reactions Bactrim [Sulfamethoxazole W-Trimethoprim] Clindamycin Levaquin [Levofloxacin] Penicillins documented in this [id number] Consult note* Mayra Garza MD - 05/28/2025 5:39 PM EDT Dermatology Inpatient Consult Attending: Dr. Mann Date of Service: 05/28/2025 Referred by: No referring provider defined for this encounter. Clinical Question: diffuse eruption HPI Delmis Mtz is a 65 year old female with a PMHx significant for HTN, HLD, GERD who presented to [facility] with diffuse rash. Pt had hysterectomy [...] and 50mg this morning. Pt sent to [facility] today by outside tree wrapper to r/o SJS. Rash is pruritic/burning but [...] portions of the procedure. Mayra Garza MD [facility] Work Phone: 1(832) 596-950107-16-2025 Emergency department Note* Latonya Norton EMR - 05/28/2025 3:[address] Ro CAMARENA notified of critical POTASSIUM value of 8.5 (HEMOLYZED). Hard copy of results given to Dr. Ro CAMARENA. AMINA Cosby [id number] Emergency department Note* CierraLaotnya, EMR - 05/28/2025 3:[address] oR CAMARENA notified of critical POTASSIUM value of [...] role in this case. PLEASE SEE OTHER ATTENDING/RESIDENT/PHYSICIAN/NEEDLE PROCESS FELT GOODS SUPERVISOR/PA NOTATION ALEX House documented in this [id number] NotePhysician Triage Note The patient was seen [...] role in this case. PLEASE SEE OTHER ATTENDING/RESIDENT/PHYSICIAN/NEEDLE PROCESS FELT GOODS SUPERVISOR/PA NOTATION ALEX HouseThe [facility]-2025 Physician Emergency department Note* Heidi Kaur [...] role in this case. PLEASE SEE OTHER ATTENDING/RESIDENT/PHYSICIAN/NEEDLE PROCESS FELT GOODS SUPERVISOR/PA NOTATION ALEX House [facility] Work Phone: [phone]) 225-149407-16-2025 History of Present illness Narrative* ALEX Thornton [...] Importance of evaluation and possible admittance to [facility] stressed. Instructed patient to go to [facility] at this time. [facility] notified of patient pending arrival. Next Visit: prn for any new/changing lesions documented in this encounterCrittenton Behavioral [id number] History of Present illness Narrative* CHACHA Velasquez - 05/27/2025 11:30 AM EDT Subjective: Delmis Mtz is a 65 y.o. female who is s/p a [id number] on 05/12/25. Pathology: Stage IB grade 1 [...] 05/12/2025 Performed by Malachi Snow MD at [facility] ROBOTIC ASSISTED DISSECTION LYMPH NODE PELVIC SENTINEL Bilateral 05/12/2025 Performed by Malachi Snow MD at [facility] DILATION AND CURETTAGE OF UTERUS TONSILLECTOMY Past Medical History: Diagnosis Date Arthritis Cancer ([facility] [place] endometrial Cataract implants COPD (chronic obstructive pulmonary disease) ([facility] [place]) GERD (gastroesophageal reflux disease) Hyperlipidemia Hypertension Obesity [...] Patient Active Problem List Diagnosis Endometrial cancer ([facility]) Pre-procedure lab exam Plan: Post op [...] *This note was completed using a voice apparel merchandiser system. Every effort was made to ensure accuracy. However, inadvertent computerized apparel merchandiser errors may be present. Lindsay Rodriguez PA-C, RD, IF CHACHA Velasquez 05/27/25 1203 documented in this encounterNationwide Children's Hospital07-15-2025 Miscellaneous Notes* Tumor Conference Note - Shayna Gross PA-C - 05/27/2025 8:04 AM EDT Images from the original note were not included. Multidisciplinary Cancer Conference Center Note Patient Name: Delmis Mtz : 1960 Conference Type:ACETALDEHYDE CONVERTER OPERATOR Conference Date: 05/27/25 Patient's Care Team: Patient [...] regarding trials, Please call Clinical Research at [phone] National Guidelines discussed (NCCN, AUA, NCI, etc): [...] can be directed to the Cancer Registry: [phone] documented in this encounterWVUMedicine Harrison Community HospitalChefmarket.ru [id number] Progress note* Tumor Conference Note - Shayna Gross PA-C - 05/27/2025 8:04 AM EDT Images from the original note were not included. Multidisciplinary Cancer Conference Center Note Patient Name: Delmis Mtz : 1960 Conference Type:ACETALDEHYDE CONVERTER OPERATOR Conference Date: 05/27/25 Patient's Care Team: Patient [...] regarding trials, Please call Clinical Research at [phone] National Guidelines discussed (NCCN, AUA, NCI, etc): [...] can be directed to the Cancer Registry: [phone] [employer] Work Phone: [phone] Miscellaneous Notes* Telephone Encounter - Barbara Victor CMA - 05/26/2025 10:46 AM EDT Patient let voicemail requesting pathology results. Manager Portable called back and spoke to patient; informed her that Dr Sonw has not left notes for us to share, but the provider at her appt tomorrow willbe able to answer her questions. Patient instructed assembly instructions writer to leave the results on her voicemail atthe end of the office workday and promptly ended the call before assembly instructions writer could respond. documented in this encounterNortheastern Vermont Regional HospitalBridge [facility]07-14-2025 Telephone encounter Note* Telephone Encounter - Barbara Victor CMA - 05/26/2025 10:46 AM EDT Patient let voicemail requesting pathology results. Manager Portable called back and spoke to patient; informed her that Dr Snow has not left notes for us to share, but the provider at her appt tomorrow willbe able to answer her questions. Patient instructed assembly instructions writer to leave the results on her voicemail atthe end of the office workday and promptly ended the call before assembly instructions writer could respond. [facility]07-07-2025 History of Present illness Narrative* Cuco [...] < 3 seconds Digits 1-5 bilateral NEURO: [place] 5.07 monofilament was intact B/L. Vibratory [...] for reassessment. CLIFFORD Sepulveda documented in this encounterCrittenton Behavioral HealthFqbppbtqqw07-43-1408 Miscellaneous Notes* Telephone Encounter - Clary Aleman [...] and agreeable to plan. documented in this encounterNationwide Children's Hospital07-02-2025 Telephone encounter Note* Telephone Encounter - [...] Patient verbalized understanding and agreeable to plan. [facility]06-26-2025 Instructions* Patient Instructions* Estrella Norton RN - 05/08/2025 1:45 PM EDT Images from the original note were not included. Your surgery/procedure is scheduled at [facility] on May 12 at 1 pm Arrival Time 11 am. [facility] Address: [address] [place] [address], [address] [place] [address] in the Emergency Center Parking lot. Report to the patient coordinator front desk in the Emergency/Surgery Registration lobby of the hospital. Notify your SURGEON if you develop any illness such as a cold, cough, fever, sore throat, vomiting or are hospitalized between now and your surgery. Please call Pre-Admission Clinic at [phone] if you have any questions prior to surgery. For questions the morning of surgery, call the Pre-op Department at [phone]. Medication Instructions (Do not stop your medications [...] piercings, hair extensions that contain metal, nail russian, make-up, and contact lens. You may brush [...] pets in your bed. Please be advised, [facility] has transitioned to a cashless payment [...] RESPONSIBILITIES As a patient at [facility], you have the right to: Receive medical care and be informed of who is taking care of you Be treated with dignity and respect Have a family member/ocean import representative of choice and your physician notified of your admission Receive information and actively participate in decisions about your care and treatment Refuse care, treatment and services Decide who may provide your support and speak for you Access tenriism and spiritual services Participate in ethical issues [...] of hospital charges and payment methods Patient/patient ocean import representative responsibilities are to: Provide information about [...] pets in your bed documented in this encounterNationwide Children's Hospital06-18-2025 History of Present illness Narrative* Malachi [...] Patient Active Problem List Diagnosis Endometrial cancer ([facility]) Pre-procedure lab exam Plan: 1. The [...] procedures Referring and communicating with other health care support representative (not separately reported) Documenting clinical information in the electronic or other health record Malachi Snow MD documented in this encounterNationwide Children's Hospital06-09-2025 History of Present illness Narrative* CHACHA [...] nursing note reviewed. Exam conducted with a hospitality recruiter present. Vitals: Estimated body mass index is 37.6 kg/m as calculated from the following: Height as of 07/04/23: 6' 1 . Weight as of this encounter: 285 lb. BP: 122/76 No LMP recorded. ASSESSMENT & PLAN ICD-10-CM 1. Postoperative examination Z09 Post Op Follow Up: Patient presents today for a postop follow up after having a D&C Hysteroscopy performed at [facility] with Dr. Valdez. Pathology results was reviewed with the patient in great detail and all restrictions have been lifted. Patient has referral appointment scheduled for DR Bautista on 04/30/25, due to adenocarncima of the endometrium. Follow Up: Patient is to return to the office for annual exam unless needed otherwise. Documented by CHACHA Alcantara on behalf of: CHACHA Alcantara documented in this encounterCrittenton Behavioral [id number] History of Present illness Narrative* Rubi Cabrera LPN - 03/18/2025 2:40 PM EDT Reason for Appointment: Patient ID: Delmis Mtz is a 64 y.o. female who presents for Pre-op Visit Patient presents today for Pre Op appointment. Patient is scheduled to undergo D&C Hysteroscopy, possible Myosure on 04/11/[address] Valdez at [facility]. MEDICATIONS Current Outpatient Medications Medication Instructions [...] nursing note reviewed. Exam conducted with a hospitality recruiter present. Vitals: Estimated body mass index is [...] reviewed, and patient is to proceed to [facility] OR. Follow Up: Patient is to follow up between 1-2 weeks post operative to assess proper healing and recovery fromprocedure. Documented by Dina Dawson LPN on behalf of: Yovani Valdez DO documented in this encounterCrittenton Behavioral [id number] History of Present illness Narrative* Rubi Cabrera [...] nursing note reviewed. Exam conducted with a hospitality recruiter present. Vitals: Estimated body mass index is [...] of: Yovani Valdez DO documented in this encounterDA[facility] HealthcareEvaluation note* Diagnosis Age-related nuclear cataract of both eyes documented in this encounter [facility] HealthcareEvaluation note* Diagnosis Postmenopausal bleeding documented in this encounter [facility] HealthcareEvaluation note* Diagnosis Pre-op examination Postmenopausal bleeding Thickened endometrium Nonspecific (abnormal) findings on radiological and other examination of genitourinary organs documented in this encounter [facility] HealthcareEvaluation note* Diagnosis Postoperative examination Follow-up examination, following unspecified surgery documented in this encounter [facility] HealthcareEvaluation note* Diagnosis Endometrial cancer (CMS-HCC)- Primary Malignant neoplasm of corpus uteri, except isthmus Pre-procedure lab exam Pre-procedural laboratory examination documented [facility] encounter [facility]* Diagnosis Endometrial cancer (CMS-HCC)- Primary Malignant neoplasm of corpus uteri, except isthmus Preop testing Unspecified pre-operative examination documented [facility] this encounter [facility]* Diagnosis Pre-op testing- Primary Unspecified pre-operative examination Endometrial cancer (CMS-HCC) Malignant neoplasm of corpus uteri, except isthmus Preop testing Unspecified pre-operative examination documented in this encounter [facility]* Diagnosis Onychocryptosis- Primary Ingrowing nail Abscess, toe, left Pain in left toe(s) documented in this encounter [facility] HealthcareEvaluation note* Diagnosis Endometrial cancer (CMS-HCC)- Primary Malignant neoplasm of corpus uteri, except isthmus Encounter for postoperative care documented in this encounter [facility]* Diagnosis Rash and other [...] postoperative care- Primary documented in this encounter [facility]* Diagnosis Other specified disorders [...] left ankle and states she has a Lorenzo type brace but does not wear it [...] file Food Insecurity: Unknown (05/28/2025) Received from [employer] Hunger Vital Sign Within the past 12 months, you worried that your food would run out before you got the money to buymore.: Never true Ran Out of Food in the Last Year: Not on file Transportation Needs: Unknown (05/28/2025) Received from [facility] PRAPARE - Transportation Lack of Transportation (Medical): No Lack of Transportation (Non-Medical): Not on file Physical Activity: Not on file Stress: Not on file Social Connections: Not on file Intimate Partner Violence: Unknown (05/28/2025) [facility] Humiliation, Afraid, Rape, and Kick questionnaire Fear of Current or Ex-Partner: Not on file Within the last year, have you been humiliated or emotionally abused in other ways by your partner or ex-partner?: No Physically Abused: Not on file Sexually Abused: Not on file Housing Stability: Unknown (05/28/2025) [facility] Stability Vital Sign In the last [...] 1 through 10 Patient encouraged to wear [place] brace to the ankle of concern and [...] Daily, Disp: , Rfl: documented in this encounterEastern Missouri State Hospitalspuniversity of [facility] hospital course Narrative No data available for this section [facility] Discharge instructions No data available for this section [facility] General Surgery [place] InstructionsNot on filedocumented in this encounter [facility] SystemInstructionsNot on filedocumented in this encounter [facility] SystemInstructionsNot on filedocumented in this encounter [facility] SystemInstructionsNot on filedocumented in this encounter [facility] SystemInstructionsNot on filedocumented in this encounter [facility] SystemInstructionsNot on filedocumented in this encounter [facility] SystemInstructionsNot on filedocumented in this encounter [facility] HospitalProgress note No data available for this section [facility] General Surgery [facility] Summary Purpose Family History No Family [...] section and content) DATE CREATED AUTHOR 06/19/2022 [facility] DATE CREATED AUTHOR AUTHOR'S ORGANIZ ATION 05/28/2025 [facility] DATE CREATED AUTHOR AUTHOR'S ORGANIZ ATION 06/01/[address] [facility] DATE CREATED AUTHOR AUTHOR'S ORGANIZ ATION 06/03/2025 [facility] DATE CREATED AUTHOR AUTHOR'S ORGANIZ ATION 06/30/2025 [facility] DATE CREATED AUTHOR AUTHOR'S ORGANIZ ATION 09/06/2025 [facility] DATE CREATED AUTHOR AUTHOR'S ORGANIZ ATION 09/19/2025 [facility] Reason for Visit (unrecogniz ed section and content) ReasonCommentsMed RefillReasonCommentsPMBReasonCommentsPre-op VisitReason CommentsPost-op VisitReasonCommentsNew PatientSpecialtyDiagnoses / Procedures Referred By ContactReferred To ContactOncology / Gynecologic Oncology Diagnoses Endometrial cancer ([facility]) [facility] Gynecology Oncology, A Department of [facility] [address] [address] Phone: tel: fax: [facility] Oncology, A Department of [facility] [address] [address] Phone: tel: fax: Referral IDStatusReasonStart DateExpiration DateVisits RequestedVisits [id number] Review Specialty Services Required /[id number]-vqQffzklGzsriynhOjpdZucajaYvlqbfhy Generalized redness/erythema/rashStarted clindamycin on 05/19. Rash all over body Monday morning. Stopped clindamycin Monday night. Saw doctor on Monday & received cortisone shot Monday & Monday. Monday started prednisone. Seen tree wrapper at [facility] in [facility] & sent here for rustam sewellSpecialty Diagnoses / ProceduresReferred By ContactReferred To ContactEmervantage point behavioral health hospital Medicine Diagnoses Rash and other nonspecific skin eruption Procedures NA [facility] [employer] [address] Phone: tel: [facility] [employer] [address] Phone: tel: Referral IDStatusReasonStart DateExpiration DateVisits RequestedVisits [id number] DateCommentsPrescription Yjumnvmgwtfvr05/17/2025 ReasonCommentsFollow-up2 week avulsion follow upReasonCommentsToenail Care Care Teams (unrecognized sec tion and content) Team MemberRelationshipSpecialtyStart DateEnd Date Radha Iverson MD [address] [place] [phone] PCP - GeneralFamily Medicine07/04/23 Berta Lovelace MD [address] [place] [address] Referring PhysicianOptometry05/21/24Team MemberRelationshipSpecialtyStart DateEnd Date Radha Iverson MD [address] [place] [facility] [place] [address] PCP - GeneralFamily Medicine07/04/23 Berta Rivero OD [address] [place] [facility] [place] [address] Referring PhysicianOptometry05/21/24Team MemberRelationshipSpecialtyStart DateEnd Date Radha Iverson MD [address] [place] [facility] [place] [address] PCP - GeneralFamily Medicine07/04/23 Berta Rivero OD [address] [place] [facility] [place] [address] Referring PhysicianOptometry05/21/24Team MemberRelationshipSpecialtyStart DateEnd Date Radha Iverson MD [address] [facility] [place] [address] PCP - GeneralFamily Medicine07/04/23 Berta Rivero OD [address] [place] [facility] [place] [address] Referring PhysicianOptometry05/21/24Team MemberRelationshipSpecialtyStart DateEnd Date Radha Iverson MD [address] [place] [facility] [place] [address] PCP - GeneralFamily Medicine07/04/23 Berta Rivero OD [address] [place] [facility] [place] [address] Referring PhysicianOptometry05/21/24Team MemberRelationshipSpecialtyStart DateEnd Date Radha Iverson MD PCP - Generalmily Medicine06/24/20Team MemberRelationshipSpecialtyStart DateEnd Date Radha Iverson MD PCP - Generalmily Medicine06/24/20Team MemberRelationshipSpecialtyStart DateEnd Date Radha Iverson MD PCP - Generalmily Medicine06/24/20Team MemberRelationshipSpecialtyStart DateEnd Date Radha Iverson MD PCP - Generalmi Medicine06/24/20Team MemberRelationshipSpecialtyStart DateEnd Date Radha Iverson MD [facility]/20Team MemberRelationshipSpecialtyStart DateEnd Date Radha Iverson MD [address] [place] [address] [facility] - [facility]/04/23 Berta Rivero OD [address] [place] [address] Referring PhysicianOptometry05/21/24Team MemberRelationshipSpecialtyStart DateEnd Radha Iverson MD [address] [place] [address] PCP - GeneralFamily Medicine07/04/23 Berta Rivero, OD [address] [place] [address] Referring PhysicianOptometry05/21/24Te MemberRelationshipSpecialtyStart DateEnd Radha Iverson MD [facility] - [facility]06/24/20Team MemberRelationshipSpecialtyStart DateEnd Date Radha Iverson MD [address] [place] [address] PCP - [facility] Medicine07/04/23 Berta Rivero OD [address] [place] [address] Referring PhysicianOptometry05/21/24Te MemberRelationshipSpecialtyStart DateEnd Radha Iverson MD PCP - [facility] Medicine06/24/20 Scheduled Active and Recently [...] BE BASED ON THE PRIMARY CLINICAL RECORDS. Shut Down [facility]. provides no warranty or guarantee of the accuracy or completeness of information in this document.
--- OUTSIDE RECORDS SUMMARY | 2025-10-22 06:42 | XMS_ITS | Clinical Summary ---
Author Organization [facility] Address [address], [address] [place] [address] Care Team Providers Care Paper Supervisor Name Role Phone Andres Lentz MD Primary Care Provider [phone] Social History Tobacco UseTypesPacks/DayYears UsedDateSmoking Tobacco: Never Assessed CommentsUnknownSex and Gender InformationValueDate RecordedSex Assigned at Not on fileLegal UxbPvrxwz38/10/2013 10:00 AM ESTGender IdentityNot on file Sexual OrientationNot on file Plan of Treatment Health MaintenanceDue DateLast DoneCommentsDepression Nbwewt6704/20/1970Hepatitis C qtckrj2404/20/1976DTaP/Tdap/Td vaccine (1 - Tdap)1977Breast cancer screen 04/20/19980142Fljwnu04/08/5176Qhmndmqxnjx47/08/2003Colorectal Cancer Screen 2003FIT/FOBT: Average risk2003Fecal-DNA (Cologuard): Average risk 2003Sigmoidoscopy/CT vjuquzovcfyk97/08/2003Pneumococcal 50+ years Vaccine (1 of 1 - PCV)2008DEXA (modify frequency per FRAX score)2013nnual Wellness Visit (Medicare)10/09/2023Flu vaccine (#1)5COVID-19 Vaccine (3 - season)501/06/2022, 1Respiratory Syncytial Virus (RSV) or age 60 yrs+ (1 - 1-dose 75+ series)2033Shingles vaccine Ofgcaczzh05/01/2019, 04/15/2019Hepatitis A vaccineAged OutNo longer eligible based [...] [place] [id number] Care Teams Team MemberRelationshipSpecialtyStart DateEnd Andres Lentz MD [address] [facility] [place] [phone] PCP - GeneralFamily Medicine07/05/23
--- OUTSIDE RECORDS SUMMARY | 2025-10-22 06:43 | XMS_ITS | Patient Health Record ---
Author Organization [facility] [place] Address [address] [place] [address] Care Team Providers Care Mail Caller Name Role Phone Femi Lentz Primary Care Provider [phone] Allergies Allergen (clinical drug ingredient) Drug/Non Drug Allergy documented on EMR Reaction Allergy Type Onset Date Status sulfamethoxazole / trimethoprim Bactrim unknown Drug Allergy ActiveLevaquinunknownDrug AllergyActiveclindamycinClindamycinRASHDrug Allergy ActivePenicillindiarrheaDrug AllergyActive Results Component Value Reference Range Notes TSH Reviewed date:09/21/2025 04:46:31 PM Interpretation: Performing Lab: Notes/Report: [facility] , Thyroid Stimulating Hormone 3.952 0.358-3.740 u IU/mL Performing Lab:see noteML - [facility] LBT4 Reviewed date:09/21/2025 04:46:31 PM Interpretation: Performing Lab: Notes/Report: [facility] ,T4 Thyroxine8.404.80-13.90 ug/dLPerforming Lab:see noteML - [facility] LBPROF 14(COMP METB) Reviewed date:09/21/2025 04:46:31 PM Interpretation: Performing Lab: Notes/Report: [facility] ,Rcgouk635045-175 mmol/LPotassium4.43.5-5.1 mmol/LTaibhkjg35226-289 mmol/LCarbon Hqzjraj05.021.0-32.0 mmol/LAnion Gap10.9Lyvlwqh46160-786 mg/dLBlood Urea Uvrtabmy91.07.0-18.0 mg/dLCreatinine0.690.55-1.02 mg/dLEstimated GFR ( Nyla>60>=60 mL/min/1.73m 2Estimated GFR (Non- Alyce>60>=60 mL/min/1.73m 2BUN Creatinine Ratio20.1Clyhifn4.08.5-10.1 mg/dLBilirubin Total0.60.2-1.0 mg/dL Aspartate Amino Elbsbwxhbqq5488-50 U/LAlanine Fyhfwpmkecntfvqj7621-86 U/L Alkaline Gevnmabazji7384-517 U/LTotal Protein6.96.4-8.2 g/dLAlbumin Level3.23.4- 5.0 g/dLGlobulin3.7Albumin Globulin Ratio0.9Performing Lab:see noteML - [facility] LBFREE T3 Reviewed date:09/21/2025 04:46:31 PM Interpretation: Performing Lab: Notes/Report: [facility] ,Free T32.252.18-3.98 pg/mLPerforming Lab:see noteML - [facility] LB CBC AUTO DIFF Reviewed date:09/21/2025 04:46:31 PM Interpretation: Performing Lab: Notes/Report: [facility] ,White Blood Count5.74.0-11.0 10 3/uLRed Blood Count4.344.20-5.40 10 6/uL Yhilmuggvi92.412.0-16.0 g/tHFvoddojlyb82.736.0-48.0 %Mean Corpuscular Uhjawe84.5 81.0-99.0 fLMean Corpuscular Yjhasvzttg19.626.7-34.0 pgMean Corpuscular HGB Conc 31.229.9-35.2 g/dLRed Cell Distribution Width13.011.0-15.0 %Platelet Vwpyh592 150-450 10 3/uLMean Platelet Gcmsyk43.79.5-13.5 fLNeutrophils Percent Auto75.5 43.0-75.0 %Lymphocytes Percent Auto15.420.5-60.0 %Monocytes Percent Auto7.11.7- 12.0 %Eosinophils Percent Auto1.10.9-7.0 %Basophils Percent Auto0.70.2-2.0 % Immature Granulocytes Pct Auto0.20.0-0.5 %Neutrophils Absolute Auto4.31.4-6.5 10 3/uLLymphocytes Absolute Auto0.91.2-3.8 10 3/uLMonocytes Absolute Auto0.40.3-0.8 10 3/uLEosinophils Absolute Auto0.10.0-0.7 10 3/uLBasophils Absolute Auto0.00.0- 0.1 10 3/uLImmature Granulocytes Abs Auto0.010.00-0.03 10 3/uLPerforming Lab:see noteML - [facility] LBErythrocyte Sedimentation Rate Reviewed date:06/04/2025 06:10:32 PM Interpretation: Performing Lab: Notes/Report: [facility] ,Erythrocyte Sedimentation Rate19<=30 mm/hrPerforming Lab:see noteML - [facility] LBCT abdomen pelvis w con Reviewed date:05/03/2025 01:43:49 PM Interpretation: Performing Lab: Notes/Report: Source Facility: [place] [address] CT Scan Report Signed Patient: DELMIS JUAN MR#: [id number] : 1960 Acct:[id number] Age/Sex: 65 / F ADM Date: 05/02/25 Loc: LAB Attending Dr: Camila-Staff Physician Toure Ordering Physician: Jorge Penn M.D. Date of Service: 05/02/25 Procedure(s): CT abdomen pelvis w con Accession Number(s): [id number] cc: Andres Lentz M.D. [place] [address] Patient Name: DELMIS JUAN MRN: [id number] date: 1960 Sex: F Assigned Patient Location: LAB Current Patient Location: LAB Accession/Order Number: [id number] Exam Date: 05/02/2025 10:28 Report Date: 05/02/2025 10:50 At the request of: NON-STAFF PHYSICIAN Procedure: CT abdomen pelvis w con CT [...] Antunez M.D. 05/02/2025 10:50 AM Dictation Location: [place] [address] Electronically authenticated by: [id number] Y Date: 05/02/2025 10:50 Dictated By: Dina Antunez M.D. Signed By: 05/02/25 1053 DD/ 1050 TD/TT: Fund Raiser:CT CHEST W CON Reviewed date:05/03/2025 01:43:49 PM Interpretation: Performing Lab: Notes/Report: Source Facility: [place] [address] CT Scan Report Signed Patient: DELMIS JUAN MR#: [id number] : 1960 Acct:[id number] Age/Sex: 65 / F ADM Date: 05/02/25 Loc: LAB Attending Dr: AlexanderStaff Physician Toure Ordering Physician: Jorge Penn M.D. Date of Service: 05/02/25 Procedure(s): CT chest w con Accession Number(s): [id number] cc: Andres Lentz M.D. [place] [address] Patient Name: DELMIS JUAN MRN: [id number] date: 1960 Sex: F Assigned Patient Location: LAB Current Patient Location: LAB Accession/Order Number: [id number] Exam Date: 05/02/2025 10:28 Report Date: 05/02/2025 10:50 At the request of: NON-STAFF PHYSICIAN Procedure: CT abdomen pelvis w con CT [...] Antunez M.D. 05/02/2025 10:50 AM Dictation Location: [place] [address] Electronically authenticated by: [id number] Y Date: 05/02/2025 10:50 Dictated By: Dina Antunez M.D. Signed By: 05/02/25 1053 DD/ 1050 TD/TT: Fund Raiser:CREATININE Reviewed date:05/03/2025 01:43:49 PM Interpretation: Performing Lab: Notes/Report: [facility] ,Creatinine0.950.55-1.02 mg/dLEstimated GFR ( Nyla>60>=60 mL/min/1.73m 2Estimated GFR (Non- Ame59>=60 mL/min/1.73m 2Performing Lab:see noteML - [facility] LBECG 12 lead Reviewed date:04/01/2025 08:40:49 PM Interpretation: Performing Lab: Notes/Report: Source Facility: [facility]-[address] [place] [address] [place] [address] Electrocardiograph Report Signed Patient: DELMIS JUAN MR#: [id number] : 1960 Acct:[id number] Age/Sex: 64 / F ADM Date: 04/01/25 Loc: PST Attending Dr: Kurtis Valdez D.O. Ordering Physician: Kurtis Valdez D.O. Date of Service: 04/01/25 Procedure(s): ECG 12 lead Accession Number(s): [id number] cc: [facility] Test Date: 2025-04-01 Pat Name: DELMIS JUAN Department: Room: - Gender: Female Precipitator: : 1960 Requested By: KURTIS VALDEZ Order Number: [id number] Reading MD: MAC ECHOLS M.D. Measurements Intervals [place] Rate: 55 P: 40 [place]: 162 QRS: 30 QRSD: 89 T: 23 QT: 414 QTc: 398 Interpretive Statements SINUS BRADYCARDIA Borderline ECG Compared to ECG 01/04/2017 20:11:26 Heart rate has decreased Electronically Signed On 04-01-2025 18:34:40 EDT by MAC ECHOLS M.D. Dictated By: MAC ECHOLS Signed By: 04/01/25 1835 DD/ 0953 TD/TT: Fund Raiser:PROF AMANDA Martinez (BAS METB) Reviewed date:04/01/2025 08:40:49 PM Interpretation: Performing Lab: Notes/Report: [facility] ,Yblohv464657-812 mmol/LPotassium4.43.5-5.1 mmol/ROxlfvtyg80354-949 mmol/LCarbon Lffuaih69.721.0-32.0 mmol/LAnion Gap14.9Twingai07680-110 mg/dLBlood Urea Dlusjvht97.07.0-18.0 mg/dLCreatinine0.910.55-1.02 mg/dLEstimated GFR ( Nyla>60>=60 mL/min/1.73m 2Estimated GFR (Non- Alyce>60>=60 mL/min/1.73m 2BUN Creatinine Ratio20.6Uvdjsgl8.08.5-10.1 mg/dLPerforming Lab:see noteML - [facility] LBPROF 14(COMP METB) Reviewed date:06/04/2025 06:10:32 PM Interpretation: Performing Lab: Notes/Report: [facility] ,Ttgzee494357-130 mmol/LPotassium3.63.5-5.1 mmol/DAxojisgy80574-501 mmol/LCarbon Bvvioft00.721.0-32.0 mmol/LAnion Gap14.9Pemeqwl64731-339 mg/dLBlood Urea Knkrgqna83.07.0-18.0 mg/dLCreatinine0.860.55-1.02 mg/dLEstimated GFR ( Nyla>60>=60 mL/min/1.73m 2Estimated GFR (Non- Alyce>60>=60 mL/min/1.73m 2BUN Creatinine Ratio27.8Dglhjgd9.48.5-10.1 mg/dLBilirubin Total0.40.2-1.0 mg/dL Aspartate Amino Ixgwphetdli597-98 U/LAlanine Pckeacavnajxignl0257-69 U/LAlkaline Rndgsihqhlc59544-114 U/LTotal Protein6.56.4-8.2 g/dLAlbumin Level3.23.4-5.0 g/dL Globulin3.3Albumin Globulin Ratio1.0Performing Lab:see noteML - [facility] LBCRP Reviewed date:06/04/2025 06:10:32 PM Interpretation: Performing Lab: Notes/Report: [facility] ,C Reactive Protein0.70<=0.50 mg/dLPerforming Lab:see noteML - [facility] LBUA DIP NONAUTO WO MICRO (61322) - IN OFFICE Reviewed date:05/27/2025 09:19:51 AM Interpretation: Performing Lab: Notes/Report: COLORYellowCLARITYCloudyGLUCOSENegBILIRUBINNegKETONENegSPECIFIC GRAVITY1.010 TFOKOPphQY8PWZIAMXHuoJRYZXJKSLZMIGxoXQQRDCSEsrGWQDRQUUD ESTERASE++CBC AUTO DIFF Reviewed date:04/13/2025 04:45:07 PM Interpretation: Performing Lab: Notes/Report: [facility] ,White Blood Count6.14.0-11.0 10 3/uLRed Blood Count4.434.20-5.40 10 6/uL Qhhhofjvqc21.812.0-16.0 g/sPEsufklacyd93.436.0-48.0 %Mean Corpuscular Qczfiw77.9 81.0-99.0 fLMean Corpuscular Xivuinryhb32.926.7-34.0 pgMean Corpuscular HGB Conc 32.529.9-35.2 g/dLRed Cell Distribution Width12.811.0-15.0 %Platelet Dscnx342 150-450 10 3/uLMean Platelet Ooidts42.79.5-13.5 fLNeutrophils Percent Auto74.5 43.0-75.0 %Lymphocytes Percent Auto17.220.5-60.0 %Monocytes Percent Auto6.21.7- 12.0 %Eosinophils Percent Auto0.80.9-7.0 %Basophils Percent Auto0.80.2-2.0 % Immature Granulocytes Pct Auto0.50.0-0.5 %Neutrophils Absolute Auto4.61.4-6.5 10 3/uLLymphocytes Absolute Auto1.11.2-3.8 10 3/uLMonocytes Absolute Auto0.40.3-0.8 10 3/uLEosinophils Absolute Auto0.10.0-0.7 10 3/uLBasophils Absolute Auto0.10.0- 0.1 10 3/uLImmature Granulocytes Abs Auto0.030.00-0.03 10 3/uLPerforming Lab:see noteML - [facility] LBLIPID PROFILE Reviewed date:09/21/2025 04:46:31 PM Interpretation: Performing Lab: Notes/Report: [facility] ,Dpfyzrzetgvyq64<=150 mg/zEUkrvpaaifks884<=200 mg/dLHDL Uontaspfuxg8898-51 mg/dL > or =60 mg/dl - LOW CARDIOVASCULAR RISK <40 mg/dl - HIGH CARDIOVASCULAR RISK LDL Cholesterol Bdcyrsqpmg75.6 <100 mg/dl OPTIMAL 100-129 mg/dl NEAR OR ABOVE OPTIMAL 130-159 mg/dl BORDERLINE HIGH 160-189 mg/dl HIGH >190 mg/dl VERY HIGH VLDL KIZVTNIAOYH91.4Chol HDL Ratio2.9 3.3 - 4.4 LOW RISK 4.4 - 7.1 AVERAGE RISK 7.1 - 11.0 MODERATE RISK >11.0 HIGH RISK Performing Lab:see noteML - [facility] LBGLYCOHEMOGLOBIN A1C Reviewed date:09/21/2025 04:46:31 PM Interpretation: Performing Lab: Notes/Report: [facility] ,Glycohemoglobin A1C5.84.5-6.2 % ADA RECOMMENDED LIMIT 4.0 - 6.0 ADA THERAPEUTIC TARGET < 7.0 ACTION SUGGESTED > 7.0 Estimated Average Uwkiwnn285Wtpqyarwtu Lab:see noteML - [facility] LB Reason For Referral Diagnosis 1 Screening for colon cancer (Z12.11) Referral Organization [facility] Medicine Referring Provider First Name Femi Referring Provider Last Name Mary Carmen Referring Provider Speciality Family Med vic Referred Provider Karan Bates Referred Provider Specialty General Surg richy Referral Priority Routine Medications Medication SIG (Take, Route, Frequency, Duration) Notes Start Date End Date Status Vitamin D3 125 MCG (5000 UT) TAKE 1 CAPS ULE BY MOUTH ONCE A DAY DIRECTED; Duration: 90 ActiveCefdinir 300 MG2 capsule Orally once a day; Duration: 10 days09/03/2025 ActiveSimvastatin 20 MGTAKE 1 TABLET BY MOUTH [...] BY MOUTH TWICE A DAY; Duration: 90 daysActiveLiothyronine Sodium 5 MCG1 tablet on an empty stomach Orally Once a day; Duration: 30 days5ActiveamLODIPine Besylate 5 MGTAKE 1 TABLET BY MOUTH EVERY DAY FOR 30 DAYS; Duration: 90ActiveCarvedilol 25 MGTAKE 1 TABLET BY MOUTH TWICE A DAY WITH FOOD FOR 90 DAYS; Duration: 90ActivepredniSONE 20 MG2 tablets Orally Once a day; Duration: 5 days5ActiveSenexon-S 8.6-50 MG1 tablet as needed Orally Twice a dayActiveFurosemide 40 MGTAKE 1 TABLET BY MOUTH EVERY DAY; Duration: 90ActivehydrOXYzine HCl 25 MG1 tablet as needed Orally qid; Duration: 10 days5ActiveIbuprofen 600 MGTAKE 1 TABLET BY MOUTH 3 [...] last smoked?Greater than 10 yearsAdditional Findings: Tobacco igk-lxpqTy-jyrco cigarette smoker (20-30/day)AUDIT-C (Standard) Question Answer Notes Did you have a drink containing alcohol in the p ast year? No Sxkbcn7GjrprgiccpojovOpddefhk Problems Problem Type SNOMED Code ICD Code Onset Dates Problem Status W/U Status Risk Notes Problem Strain of muscle(s) and tendon(s) of anterior muscle group at lower leg level, unspecified leg, initial encounter (S86.219A)ActiveconfirmedProblemSprain of other ligament of unspecified ankle, initial encounter (S93.499A)Activeconfirmed ProblemChest pain (15546532)Chest pain (R07.9)ActiveconfirmedProblem Osteoarthritis (108759922)Osteoarthritis (M19.90)ActiveconfirmedProblem Gastroesophageal reflux disease (276757623)GERD (gastroesophageal reflux disease) (K21.9)ActiveconfirmedProblemHypothyroid (20269462)Hypothyroid (E03.9) ActiveconfirmedProblemDyspnea on exertion (71534522)Dyspnea on exertion (R06.09) ActiveconfirmedProblemAnkle pain (659147487)Ankle pain (M25.579)Activeconfirmed ProblemWell adult (443192294)Well adult (Z00.00)ActiveconfirmedProblemNasal obstruction (742719544)Nasal obstruction (J34.89)ActiveconfirmedProblemEdema (878409005)Edema of both legs (R60.0)ActiveconfirmedProblemOnychocryptosis (130460423)Onychocryptosis (L60.0)ActiveconfirmedProblemAsthmatic bronchitis (135753093)Asthmatic bronchitis (J45.909)ActiveconfirmedProblemDrug rash (79144509)Drug rash (L27.0)ActiveconfirmedProblemEssential hypertension (17359470)Essential (primary) hypertension (I10)ActiveconfirmedProblemEmphysema (49354685)Emphysema (J43.9)ActiveconfirmedProblemEssential hypertension (13600115)Essential Hypertension (I10)ActiveconfirmedProblemTobacco user (318970465)Tobacco dependence with current use (F17.200)Activeconfirmed Vital Signs Temperature 98.0 degrees Fahrenheit 09/03/2025 Blood pressure kbidpckhe27 mm Hg09/03/20257127Gfkhks47 in09/03/2025lood pressure mxnpbuyt672 mm Hg09/03/20251463Kwtihg850.8 lbs1MI40.14 kg/m209/03/2025 Procedures Procedure Date Ordered Date Performed Result Body Sit e Cerumen Removal - performed 11/01/2024 11/01/2024 N/A Encounters Encounter Location Date Provider Diagnosis [facility] [address] [place] [address] 11/01/2024 Femi Hoy Acute bronchitis, unspecified organism J20.9 ; Cerumen impaction H61.20 and Bilateral hearing loss due to cerumen impaction H61.23 [facility] [address] [place] [address] 05/26/2025 Femi Hoy Drug rash L27.0 [facility] [address] [place] [address] 05/27/2025 Femi Hoy Drug rash L27.0 [facility] [address] [place] [address] 09/03/2025 Femi Hoy Acute non-recurrent sinusitis, unspecified location J01.90 and Nasal congestion R09.81 [facility] [address] [place] [address] 06/04/2025 Femi Hoy Drug rash L27.0 [facility] [address] [facility] [place] [address] 12/23/2024 Femi Hoy [facility] [facility] [place] [address] 02/12/2025Doug [facility]Acute bronchitis, unspecified [facility] [place] [place] [address]/15/2025Doug Hoy [facility] [place] [address] 05/28/2025Doug [place] [address] [place] [address]/Doug [address] [address]/Doug HoyScreening for colon cancer Z12.[address] [address] 09/18/2025Doug HoyEssential (primary) hypertension I10 and Well adult Z00.[address] [address] 09/21/2025Doug HoyHypothyroid E03.9[facility] [address] [address]/Doug HoyAcute non-recurrent sinusitis, unspecified location J01.[address] [address]/06/2025Doug Hoy Assessments Encounter Date Diagnosis (ICD Code) Assessment Notes Treatment Notes Treatment Clinical Notes Section Notes 05/26/2025 Drug rash (ICD-10 - L27.0) 05/27/2025Drug rash (ICD-10 - L27.0)06/04/2025Drug rash (ICD-10 - L27.0) 09/03/2025ute non-recurrent sinusitis, unspecified location (ICD-10 - J01.90) Rest and drink more liquids, especially water. You may use a humidifier or vaporizer to help keep the drainage moist. Zhuh-kip-ybaayql Nasal Saline may help the stuffy and runny nose. Use Ibuprofen and or Tylenol as needed for fever, chills, body aches or pain. Children 5 years old should not be given vxgt-ary-coloqdk cough and cold medications such as guaifenesin and dextromethorphan. If you're over age 5, you may try axud-hym-sblgsas cold medications such as guaifenesin and dextromethorphan, [...] hypertension (ICD-10 - I10)09/18/2025Well adult (ICD-10 - Z00.00)09/21/2025 Hypothyroid (ICD-10 - E03.9)5Acute non-recurrent sinusitis, unspecified location (ICD-10 - J01.90)4Acute bronchitis, unspecified organism (ICD- 10 - J20.9)Rest and drink more liquids, especially water. You may use a humidifier or vaporizer to help keep the drainage moist. Yvgi-vql-ptijeij Nasal Saline may help the stuffy and runny nose. Use Ibuprofen and or Tylenol as needed for fever, chills, body aches or pain. Children 5 years old should not be given tcph-vch-usudtcf cough and cold medications such as guaifenesin and dextromethorphan. If you're over age 5, you may try koob-tgo-ceaqvgd cold medications such as guaifenesin and dextromethorphan, [...] go to the emergency room or call [phone] impaction (ICD-10 - H61.20)11/01/2024ilateral hearing loss due to cerumen impaction (ICD-10 - H61.23)09/03/2025Nasal congestion (ICD-10 - R09.81) Plan Of Treatment Pending Test Test Name Order Date CMP (COMPLETE METABOLIC PANEL) 4 HEMOGLOBIN A1C (GLYCO) 04/11/2024 IRON, TOTAL 04/11/2024 LIPID PANEL (CHOL/TRIG/HDL/LDL) 04/11/20 24 CBC WITH DIFF (EXP 09/2025) 04/11/2024 VITAMIN D, 25 LEVEL (TOTAL) 04/11/2024 Cerumen Removal - performed 11/01/2024 MAMM MAMMOGRAM CAD DIAGNOSTIC 04/11/2024 CBC 09/18/2025 Insulin Level 04/11/2024 CMP - Comprehensive Metabolic Panel 04/2025 STOOL OCCULT BLOOD 04/11/2024 SED RATE WESTERGREN 06/04/2025 XR ANKLE RT MIN 3 VIEWS 05/25/2023 THYROID PANEL (T4/TSH/FREE T3) 5 THYROID PANEL (T4/TSH/FREE T3) 5 THYROID PANEL (T4/TSH/FREE T3) 4 Insurance Providers Payer Name Payer Address Payer Phone Subscriber Number Group Number Insured Name Patient Relationship to Insured Coverage Start Date Coverage End Date [place] [address] [place] [address] [id number] Fox Juan - patient is the insuredMUTUAL OF [address] [place] [id number] Fox Juan - patient is the insured [...]
--- OUTSIDE RECORDS SUMMARY | 2025-10-22 06:43 | XMS_ITS | Clinical Summary ---
Author Organization Adype tem Address [id number] [address] [place] [address] Care Team Providers Care Full Time Staff Interpreter Name Role Phone Andres Lentz MD Primary Care Provider [phone] Allergies Active AllergyReactionsCriticalityNoted DateComments Sulfamethoxazole-JjhbeklxxsbvBbcdfovl74/26/1858UxofcgspdjbJbfnDjy19/15/2025 TsjrkfekwjwoLbtamrsn56/26/9203Vwinypfkyfr77/17/2025 Medications MedicationSigDispense QuantityRefillsLast FilledStart DateEnd DateStatus albuterol [...] 10 days5Active Active Problems ProblemNoted DateDiagnosed DateEndometrial uajtgi5104/30/2025 Cancer Staging: Clinical stage from 05/12/2025:FIGO Stage IB(cT1b, cN0, cM0) - Unsigned Resolved Problems ProblemNoted DateDiagnosed DateResolved DatePre-procedure lab exam04/30/2025 05/27/2025 Family History Medical HistoryRelationNameCommentsAnesthesia problemsNeg Hx Social History Tobacco UseTypesPacks/DayYears UsedDateSmoking Tobacco: DvsuplIsnziiddxa9312129 - 2016Smokeless Tobacco: Never Tobacco Cessation:Counseling Given: Not Answered Alcohol UseStandard Drinks/WeekCommentsNot Currently0 (1 standard drink = 0.6 oz pure alcohol)ChildcareAnswerDate EkmwawktIgyfmraquIosquph47/12/2019Employment AnswerDate NwoiisfnIsikdkkfkwXfjarsh05/12/2019Hunger ScreeningAnswerDate RecordedWithin the past 12 months we worried whether our food would run out before we got money to buy more.Never True05/08/2025Within the past 12 months the food we bought just didn't last and we didn't have money to get more.Never True05/08/2025Purpose - LifeAnswerDate RecordedPurpose and direction in life Vllmkcy32/11/2021CommentsNoSex and Gender InformationValueDate Recorded Sex Assigned at BirthNot on fileLegal MvhBgmkxq86/06/2015 12:04 PM EDTGender IdentityNot on fileSexual OrientationNot on file Last Filed Vital Signs Vital SignReadingTime TakenCommentsBlood Wttoafpq892/64006/30/2025 8:51 AM EDT Kbhvo999706/30/2025 8:51 AM SPKTfrbzpkhzlp08.5 ??C (97.7 ??F)06/30/2025 8:51 AM EDTRespiratory Izcx179306/30/2025 8:51 AM EDTOxygen Lvaunfvyet972%06/30/2025 8:51 AM EDTInhaled Oxygen Concentration--Gwuxrw475.3 kg (282 lb 12.8 oz)06/30/2025 8:51 AM HFGBqiuku270.6 cm (5' 11.5 )06/30/2025 8:51 AM EDTBody Mass Index38.9 06/30/2025 8:51 AM EDT Plan of Treatment Health MaintenanceDue DateLast DoneCommentsDepression Uojmrzbdp85/08/1970Adult BMI Follow Up Plan1976DTaP,Tdap and Td Vaccines (1 - Tdap)1977Fall Risk Fpmmgvadk35/08/2023Influenza Sfgurzk71Adult BMI Screening Tobacco Dmmuvgrvx20RSV ( or age 60+ yrs) (1 - 1-dose 75+ series)2033Zoster (Shingles) VaccineCompleted 06/13/2019, 04/15/2019 Medical Devices Not on file Insurance Care Teams Team MemberRelationshipSpecialtyStart Date Andres Lentz MD [facility]
--- OUTSIDE RECORDS SUMMARY | 2025-10-22 06:43 | XMS_ITS | Clinical Summary ---
Author Organization [facility] Address [address] [place] [address] Care Team Providers Care Oil Well Cable Tool Operator Name Role Phone Andres Lentz MD Primary Care Provider [phone] Mat, Berta OD Unavailable Allergies Active AllergyReactionsCriticalityNoted OgcaGznvfvqsXkoixvwfeha55/17/2025 Medications MedicationSigDispense QuantityRefillsLast FilledStart DateEnd DateStatus losartan [...] membrane (ERM) of left eye05/21/2024 Encounters DateTypeDepartmentCare LcyhCsenazhrwfh17/23/2025 1:40 PM EDTProcedure Visit [facility] [address] [facility] [address] [place] [id number] Liborio Bagley DPM Other specified disorders of synovium, left ankle and foot (Primary Dx); Pain due to onychomycosis of toenails of both feet09/04/2025amboo flowsheet [facility] [address] [facility] [address] [place] [id number] Liborio Bagley DPM 09/04/2025Travelfrom Last 3 Months Family History Medical HistoryRelationNameCommentsCancerOtherDiabetesSiblingHeart disease SiblingRelationNameStatusCommentsOtherSiblingAlive Social History Tobacco UseTypesPacks/DayYears UsedDateSmoking Tobacco: FormerCigarettes Smokeless Tobacco: Never Tobacco Cessation:Counseling Given: Yes Alcohol UseStandard Drinks/WeekCommentsNever0 (1 standard drink = 0.6 oz pure alcohol)CommentsUnknownSex and Gender InformationValueDate RecordedSex Assigned at BirthNot on fileLegal ExwJuyged09/08/2023 4:55 PM EDTGender Identity Not on fileSexual OrientationNot on file Last Filed Vital Signs Vital SignReadingTime TakenCommentsBlood Dqeqcdxs818/7707 7:55 AM EDT Xqyfv4911 7:55 AM EDTTemperature--Respiratory Zvzj1693 1:24 PM EDTOxygen Saturation--Inhaled Oxygen Concentration--Cmvxnw388 kg (286 lb) 09/04/2025 1:24 PM BIANbfamk967.3 cm (5' 11 )09/04/2025 1:24 PM EDTBody Mass Index39.8909/04/2025 1:24 PM EDT Plan of Treatment DateTypeDepartmentCare Team (Latest Contact Info)Zfyqeltmjso98/22/2026 1:20 PM ESTProcedure Visit [facility] [address] [facility] [address] [place] [phone] Liborio Bagley DPM [address] [facility] [address] [place] [address] Health MaintenanceDue DateLast DoneCommentsCT Zogubmprqpfk1958Colonoscopy 1958Colorectal Cancer Fnislhqwo1958FIT-DNA1958FIT1958 FOBT1958 0385Rutdzplqmrgae07/08/1653Vfdatjdrh42/08/1998Pneumococcal Vaccine: 65+ Years (1 of 1 - PCV)2008COVID-19 Vaccine (3 - 2024- season) /06/2022, 10/30/2021Influenza Vaccine (#1) Insurance * Guarantor: Naz Juan TypeRelation to PatientDate of PhoneBilling AddressPersonal/PhirpdTtfn[id number] [place] [address] [address] [place] [address] [place] [phone] Care Teams Team MemberRelationshipSpecialtyStart Date Andres Lentz MD [address] [facility] [place] [id number] PCP - GeneralFamily Medicine07/04/23 Berta Rivero OD [address] [place] [address] Referring PhysicianOptometry05/21/24
[2025-10-22 06:53] VITALS: BP 152/78; PULSE 62; TEMP 36.4; O2SAT 98; BMI 39.1
[2025-10-22 08:41] VITALS: BP 120/65; PULSE 75; TEMP 36.6; O2SAT 99
[2025-10-22 08:56] VITALS: BP 121/80; PULSE 78; O2SAT 99
[2025-10-22 09:11] VITALS: BP 116/75; PULSE 72; O2SAT 100
== END 2025-10-22 09:12 | disposition home or self-care (01) ==
LOC: SURGOUT 06:39
PROVIDERS: PCP Family Medicine; Visit Provider Surgery
PROC: (CPT 45385; principal; 2025-10-22 07:55)
DX: Z12.11 Encounter for screening for malignant neoplasm of colon (principal); D12.3 Benign neoplasm of transverse colon; K57.30 Diverticulosis of large intestine without perforation or abscess without bleeding; K63.89 Other specified diseases of intestine; I10 Essential (primary) hypertension; Z90.710 Acquired absence of both cervix and uterus; E78.5 Hyperlipidemia, unspecified; J43.9 Emphysema, unspecified; G47.33 Obstructive sleep apnea (adult) (pediatric); K21.9 Gastro-esophageal reflux disease without esophagitis; Z90.722 Acquired absence of ovaries, bilateral; Z90.79 Acquired absence of other genital organ(s); Z87.891 Personal history of nicotine dependence; E66.01 Morbid (severe) obesity due to excess calories; Z68.39 Body mass index [BMI] 39.0-39.9, adult; M19.90 Unspecified osteoarthritis, unspecified site
CPT/HCPCS: 45385; 88305; J2405; J2704